=== PATIENT | male | born 1950 | race Caucasian/White ===

== ENCOUNTER 2016-08-11 12:00 | Inpatient (IN) | payer MEDICARE, OTHER ==
[~2016-08-11] VITALS: Ht 167.6 cm; Wt 76.2 kg
[~2016-08-11 12:00] MED LIST: ALLO100T PO; ALLO300T PO; ASPI81TA2 PO; BUDE10.22 IH; CALC300T5 PO; CALC667C6 PO; CARV12.5 PO; CHOL378P PO; CLOP75TA PO; DIAZEPAM10 MG PO; DIGO125T16 PO; ENAL20TA PO; ENALAPRIL; FAMO-63 PO; FLUC100T4 PO; FOLI0.8T7 PO; FURO80TA72 PO; GABA-585 PO; HUM100VI SQ; HYDR-2666 PO; INDO50CA PO; INSU100C SQ; INSU100I11 SQ; ISOS60TA PO; ISOS60TA2 PO; METO5TAB4 PO; MIRT15TA3 PO; NITR0.4T6 SL; ONDA8TAB15 PO; OXYC-244 PO; POLY255P PO; POTA10CA PO; PROVENTIL HFA6.7 GM IH; RANO500T2 PO; TAMS0.4C97 PO; TEMA30CA PO; UMEC1DIS IH
[2016-08-24] MEDS ORDERED: GABA-585 PO (13:26)
[2016-08-25] VITALS (16 sets, daily range): BP systolic 109–168; BP diastolic 54–72
[2016-08-25] MEDS ORDERED: CEFAZOLIN 2GM PREMIX 50 ML IV PRN (06:00)
[2016-08-25] MEDS ORDERED: IV NORMAL SALINE 1000ML BAG 1,000 ML IV ONE (06:45)
[2016-08-25 06:58] LABS: CREATININE 5.6 mg/dL (0.7-1.3); GFR 10.2; POTASSIUM 5.1 mmol/L (3.5-5.1)
[2016-08-25] MEDS ORDERED: ONDANSETRON PF 4 MG/2 ML VIAL. IV PRN (07:00)
[2016-08-25] MEDS ORDERED: SCOPOLAMINE 1.5MG PATCH. TD ONE (07:00)
[2016-08-25] MEDS ORDERED: IV RINGERS,LACTATED 1000ML 1,000 ML IV SCH (07:00)
[2016-08-25] MEDS ORDERED: MORPHINE SULFATE 2 MG/ML DISP.SYRIN. IV PRN (07:00)
[2016-08-25] MEDS ORDERED: LIDOCAINE 1% 1 ML SYRINGE. ID PRN (07:00)
[2016-08-25] MEDS ORDERED: DEXAMETHASONE SOD PHOS 20 MG/5 ML VIAL. IV ONE (07:00)
[2016-08-25] MEDS ORDERED: PROCHLORPERAZINE 10 MG/2 ML VIAL. IV PRN (07:00)
[2016-08-25] MEDS ORDERED: HYDROMORPHONE 2 MG/ML VIAL. IV PRN (07:00)
[2016-08-25] MEDS ORDERED: ONDANSETRON PF 4 MG/2 ML VIAL. IV ONE (07:00)
[2016-08-25] MEDS ORDERED: FENTANYL PF 100 MCG/2 ML VIAL. IV PRN (07:00)
[2016-08-25] MEDS ORDERED: SEVOFLURANE 61 TO 120 MINUTES. IH ONE (07:10)
[2016-08-25] MEDS ORDERED: ONDANSETRON PF 4 MG/2 ML VIAL. ONE (07:11)
[2016-08-25] MEDS ORDERED: FENTANYL PF 250 MCG/5 ML VIAL. ONE (07:11)
[2016-08-25] MEDS ORDERED: ETOMIDATE 20 MG/10 ML VIAL. IV ONE (07:11)
[2016-08-25] MEDS ORDERED: PROPOFOL 20 ML IV ONE (07:11)
[2016-08-25] MEDS ORDERED: DEXAMETHASONE SOD PHOS 20 MG/5 ML VIAL. ONE (07:11)
[2016-08-25] MEDS ORDERED: LIDOCAINE 2% 100 MG/5 ML DISP.SYRIN. ONE (07:11)
[2016-08-25] MEDS ORDERED: ROCURONIUM 50 MG/5 ML VIAL. ONE ×2 (07:30→11:00)
--- NOTE | 2016-08-25 08:11 | PDOC ---
SURGICAL PROGRESS NOTE Subjective 65 yo M with right retroperitoneal mass TO OR for resection R/B/A d/w pt and pt's family Office note reviewed and essentially unchanged H&P dictated: [id number] Vital Signs Vital Signs Date Time Temp Pulse Resp B/P Pulse Ox O2 Delivery O2 Flow Rate FiO2 08/25/16 06:33 97.9 70 18 160/48 98 Room Air 97.9 Labs Laboratory Tests Test 08/25/16 06:30 Sodium Level 141mmol/L (136-145) Potassium Level 5.1mmol/L (3.5-5.1) Chloride Level 101mmol/L (98-107) Carbon Dioxide Level 30mmol/L (21-32) Anion Gap 10 (6-14) Blood Urea Nitrogen 30mg/dL (8-26) Creatinine 5.6mg/dL (0.7-1.3) Estimated GFR (Cockcroft-Gault) 10.2 Glucose Level 127mg/dL (70-99) Calcium Level 9.0mg/dL (8.5-10.1) Laboratory Tests Test 08/25/16 06:30 Sodium Level 141mmol/L (136-145) Potassium Level 5.1mmol/L (3.5-5.1) Chloride Level 101mmol/L (98-107) Carbon Dioxide Level 30mmol/L (21-32) Anion Gap 10 (6-14) Blood Urea Nitrogen 30mg/dL (8-26) Creatinine 5.6mg/dL (0.7-1.3) Estimated GFR (Cockcroft-Gault) 10.2 Glucose Level 127mg/dL (70-99) Calcium Level 9.0mg/dL (8.5-10.1) BEATA HARDY MD Aug 25, 2016 08:11
[2016-08-25] MEDS ORDERED: KETAMINE HCL 500 MG/10 ML VIAL. ONE (09:54)
--- NOTE | 2016-08-25 10:01 | PREOP HP ---
DATE OF SERVICE: 08/25/2016 REFERRING PHYSICIANS: Dr. Cox in Oncology, Dr. Carlos Oswald, Dr. Sandeep Calzada and Dr. Michael Matthews. CHIEF COMPLAINT: Fatigue, nausea, vomiting. DIAGNOSIS: Right retroperitoneal mass, increasing in size. PLANNED PROCEDURE: En bloc excisional biopsy and resection of right retroperitoneal mass. HISTORY OF PRESENT ILLNESS: This is a 65-year-old male with multiple medical problems who I previously saw in the office on 07/15/2016, presents and is seen in the preoperative area regarding the right retroperitoneal mass. He has previously had transverse colon resection for colon cancer by my partner, Dr. Orestes Mcclellan and followup CT scans were concerning for increasing size and mass in the right retroperitoneum. Previous biopsy of this has been benign, but given the increased size, it was felt the patient best be served by en bloc resection. He continues to have difficulties with fatigue, nausea, vomiting. This is stable. He is accompanying by supportive and [id number]. ALLERGIES: He has allergy to STERI-STRIPS. MEDICATIONS: Aspirin, Flomax, nitroglycerin, Pepcid, Ranexa, digoxin, insulin, oxycodone, allopurinol, Plavix, calcium, MiraLax, vitamins, gabapentin. PAST MEDICAL HISTORY: History of colon cancer, status post transverse colon resection, congestive heart failure, coronary artery disease, diabetes, chronic renal failure, atrial fibrillation, end-stage renal disease. He has had difficulties with maintaining dialysis fistulas. PAST SURGICAL HISTORY: Includes multiple cardiac stents, cholecystectomy, cardiac bypass defibrillator placement, left eye surgery, laparoscopic transverse colon resection with splenic flexure takedown on 12/14/2013, pacemaker. SOCIAL HISTORY: History of tobacco, but not for many years. No significant alcohol use. FAMILY HISTORY: Positive for colon cancer, lung cancer. REVIEW OF SYSTEMS: All systems reviewed and negative except for HPI. PHYSICAL EXAMINATION: GENERAL: A well-developed and well nourished male in no obvious distress. HEENT: Normocephalic, anicteric sclerae. Oropharynx clear. NECK: Supple. CHEST: Bilateral chest excursion. ABDOMEN: Soft, nondistended, nontender to palpation, well-healed surgical scars. No hernias, no masses. EXTREMITIES: He walks with a cane. He does have a left foot cast on for a callus. I reviewed his CT scan from 07/07/2016, which demonstrated increasing size of 4.6 x 3.6 fat-containing mass in the right retroperitoneum just posterior to the right renal pelvis and proximal ureter, anterior to the right psoas muscle, 5.2 cm in its maximum cephalocaudad dimension. He has some ill-defined soft tissue components along its periphery. There is a 2.4 x 1.6 cm fat-containing mass in the mesentery and the lower pelvis, not significantly changed, stable lytic lesion and extensive soft tissue density within the subcutaneous fat of the anterior abdominal wall. ASSESSMENT AND PLAN: A 65-year-old male with right retroperitoneal mass. We will plan on en bloc excisional biopsy of this in the operating room today. I had discussed this case previously with Dr. Matthews and the patient does represent an increased risk of perioperative complications secondary to his congestive heart failure, multiple other medical problems, however it is felt the patient best be served by resection of this. Risks, benefits, and alternatives have extensively been discussed with the patient and the patient's pleasant and supportive . Risks included but not limited to bleeding, infection, damage to surrounding structures, risk of anesthesia, risk of anesthetic, risk of wound complications. The patient and the patient's appeared to understand and their insightful questions were answered and they agreed to proceed. Thank you for allowing participation in the care of this very pleasant patient. BEATA HARDY MD DR: CARRIE/macho JOB#: [id number] / [id number] DAYAMI Lopez MD, SANDEEP MATTHEWS, MICHAEL HIRSCH
[2016-08-25 10:18] LABS: HEMATOCRIT 33.2 % (39.0-53.0); HEMOGLOBIN 10.8 g/dL (13.0-17.5); WHITE BLOOD COUNT 11.1 x10^3/uL (4.0-11.0)
[2016-08-25] MEDS ORDERED: SURGICEL HEMOSTAT 4X8 EACH. ONE (11:14)
[2016-08-25] MEDS ORDERED: GLYCOPYRROLATE 1 MG/5 ML VIAL. ONE (11:25)
[2016-08-25] MEDS ORDERED: NEOSTIGMINE METHYLSULFATE 5 MG/5 ML SYRINGE. ONE (11:25)
[2016-08-25] MEDS ORDERED: 0.9 % SODIUM CHLORIDE 10 ML DISP.SYRIN. IV PRN (11:30)
[2016-08-25] MEDS: IV RINGERS,LACTATED 1000ML 1,000 ML IV SCH ×2 (11:30→21:30)
--- NOTE | 2016-08-25 11:42 | PDOC ---
BRIEF OPERATIVE NOTE Pre-Op Diagnosis right retroperitoneal mass Post-Op Diagnosis same Procedure Performed Right retroperitoneal mass en bloc excision, right nephrectomy Surgeon Eliseo Nguyen Anesthesia Type: General Blood Loss 200 IV Fluid 2000 Specimens Obtained en bloc resection, 2 x peritoneal biopsies Findings right retroperitoneal mass Complications none Additional Remarks [id number] BEATA HARDY MD Aug 25, 2016 11:42
--- NOTE | 2016-08-25 12:08 | RAD ---
Indication postop exam. Protocol study. A single KUB was obtained. Clips are noted in the right renal fossa. The abdominal gas pattern is unremarkable. Unexpected finding is not seen. Nasogastric tube is in the stomach. Vascular calcification is noted. No unexpected finding is seen IMPRESSION: Unremarkable postop KUB.
[2016-08-25] MEDS ORDERED: INSULIN REGULAR 100 UNIT/ML 10ML VIAL. IV ONE (12:45)
--- NOTE | 2016-08-25 13:11 | PDOC ---
Date and Time Post op CXR- 3 lumen IJ positioned @ SVC RA junction. ICD/Pacemaker lead in RV. No pneumothorax. Current Medications Current Medications Ondansetron HCl (Zofran) 4 mg PRN Q6HRS PRN IV Nausea; Start 08/25/16 at 07:00 ; Stop 08/26/16 at 06:59 Fentanyl Citrate (Fentanyl 2ml Vial) 25 mcg PRN Q5MIN PRN IV MILD PAIN; Start 08/25/16 at 07:00; Stop 08/26/16 at 06:59 Fentanyl Citrate (Fentanyl 2ml Vial) 50 mcg PRN Q5MIN PRN IV MODERATE PAIN; Start 08/25/16 at 07:00; Stop 08/26/16 at 06:59 Morphine Sulfate 1 mg 1 mg PRN Q10MIN PRN IV SEVERE PAIN; Start 08/25/16 at 07: 00; Stop 08/26/16 at 06:59 Lactated Ringer's (Iv Lactated Ringers) 1,000 ml @ 0 mls/hr Q0M IV ; Start at 07:00; Stop 08/25/16 at 18:59 Lidocaine HCl 2 ml 1X PRN PRN ID IV START; Start 08/25/16 at 07:00; Stop at 06:59 Hydromorphone HCl (Dilaudid) 0.5 mg PRN Q10MIN PRN IV SEVERE PAIN, Second choice; Start 08/25/16 at 07:00; Stop 08/26/16 at 06:59 Prochlorperazine Edisylate 5 mg 5 mg PACU PRN PRN IV NAUSEA; Start 08/25/16 at 07:00; Stop 08/26/16 at 06:59 Cefazolin Sodium/ Dextrose 50 ml @ 100 mls/hr 1X PREOP PRN IV PRIOR TO PROCEDURE Last administered on 08/25/16t 08:30; Start 08/25/16 at 06:00; Stop at 18:00 Sodium Chloride (Iv Sodium Chloride 0.9% 1000ml Bag) 1,000 ml @ 0 mls/hr 1X ONCE IV Last administered on 08/25/16t 06:48; Start 08/25/16 at 06:45; Stop at 06:51; Status DC Scopolamine (Transderm-Scop) 1 patch 1X ONCE TD Last administered on t 07:03; Start 08/25/16 at 07:00; Stop 08/25/16 at 07:01; Status DC Dexamethasone Sodium Phosphate (Decadron) 4 mg ONCE ONCE IV Last administered on 08/25/16t 07:05; Start 08/25/16 at 07:00; Stop 08/25/16 at 07:01; Status DC Ondansetron HCl (Zofran) 4 mg 1X ONCE IV Last administered on 08/25/16t 07:03 ; Start 08/25/16 at 07:00; Stop 08/25/16 at 07:01; Status DC Sevoflurane (Ultane) 60 ml STK-MED ONCE IH ; Start 08/25/16 at 07:10; Stop 08/25 at 07:11; Status DC Fentanyl Citrate 250 mcg 250 mcg STK-MED ONCE .ROUTE ; Start 08/25/16 at 07:11; Stop 08/25/16 at 07:12; Status DC Propofol (Diprivan) 20 ml @ As Directed STK-MED ONCE IV ; Start 08/25/16 at 07: 11; Stop 08/25/16 at 07:12; Status DC Lidocaine HCl 100 mg STK-MED ONCE .ROUTE ; Start 08/25/16 at 07:11; Stop at 07:12; Status DC Ondansetron HCl (Zofran) 4 mg STK-MED ONCE .ROUTE ; Start 08/25/16 at 07:11; Stop 08/25/16 at 07:12; Status DC Dexamethasone Sodium Phosphate (Decadron) 20 mg STK-MED ONCE .ROUTE ; Start at 07:11; Stop 08/25/16 at 07:12; Status DC Etomidate (Amidate) 20 mg STK-MED ONCE IV ; Start 08/25/16 at 07:11; Stop at 07:12; Status DC Rocuronium [place] (Zemuron) 50 mg STK-MED ONCE .ROUTE ; Start 08/25/16 at 07:30 ; Stop 08/25/16 at 07:31; Status DC Ketamine HCl 500 mg STK-MED ONCE .ROUTE ; Start 08/25/16 at 09:54; Stop at 09:55; Status DC Rocuronium [place] (Zemuron) 50 mg STK-MED ONCE .ROUTE ; Start 08/25/16 at 11:00 ; Stop 08/25/16 at 11:01; Status DC Cellulose 1 each STK-MED ONCE .ROUTE Last administered on 08/25/16t 11:15; Start 08/25/16 at 11:14; Stop 08/25/16 at 11:15; Status DC Glycopyrrolate (Robinul) 1 mg STK-MED ONCE .ROUTE ; Start 08/25/16 at 11:25; Stop 08/25/16 at 11:26; Status DC Neostigmine Methylsulfate 5 mg STK-MED ONCE .ROUTE ; Start 08/25/16 at 11:25; Stop 08/25/16 at 11:26; Status DC Enoxaparin Sodium (Lovenox 40mg Syringe) 40 mg Q24H SQ ; Start 08/25/16 at 11:30 ; Status UNV Sodium Chloride 3 ml 3 ml QSHIFT PRN IV AFTER MEDS AND BLOOD DRAWS; Start 08/25 at 11:30 Lactated Ringer's (Iv Lactated Ringers) 1,000 ml @ 100 mls/hr Q10H IV ; Start 08/25/16 at 11:30 Acetaminophen/ Hydrocodone Bitart (Lortab 5/325) 1 tab PRN Q4HRS PRN PO MILD PAIN; Start 08/25/16 at 11:30 Hydromorphone HCl (Dilaudid) 0.2 mg PRN Q1HR PRN IV PAIN; Start 08/25/16 at 11: 30 Docusate Sodium (Colace) 100 mg BID PO ; Start 08/25/16 at 21:00 Ondansetron HCl (Zofran) 4 mg PRN Q6HRS PRN IV NAUESA, 1ST CHOICE; Start at 11:30 Insulin Human Regular (Novolin R Vial) 3 unit 1X ONCE IV Last administered on 08/25/16t 12:49; Start 08/25/16 at 12:45; Stop 08/25/16 at 12:46; Status DC Active Scripts Active Reported Gabapentin 100 Mg Capsule 100 Mg PO BID Ranexa (Ranolazine) 500 Mg Tab.er.12h 1 Tab PO DAILY Phoslo (Calcium Acetate) 667 Mg Capsule 667 Mg PO TIDWMEALS Polyethylene Glycol 3350 255 Gm Powder 17 Gm PO DAILY PRN Anoro Ellipta 62.5-25 Mcg Inh (Umeclidinium Brm/Vilanterol Tr) 1 Each Disk.w.dev 1 Each IH DAILY Clopidogrel (Clopidogrel Bisulfate) 75 Mg Tablet 1 Tab PO DAILY Percocet 7.5-325 Mg Tablet (Oxycodone/Acetaminophen) 1 Each Tablet 1 Tab PO TID PRN Dialyvite 800 Tablet (Folic Acid/Vitamin B Comp W-C) 0.8 Mg Tablet 0.8 Mg PO DAILY NITROGLYCERIN SubLingual (Nitroglycerin) 0.4 Mg Tab.subl 0.4 Mg SL PRN Humulin 70-30 Vial (Hum Insulin Nph/Reg Insulin Hm) 100 Unit/1 Ml Vial 30 Unit SQ BIDWMEALS Allopurinol 300 Mg Tablet 300 Mg PO DAILY Pepcid (Famotidine) 20 Mg Tablet 20 Mg PO QHS Lanoxin (Digoxin) 125 Mcg Tablet 125 Mcg PO DAILY Flomax (Tamsulosin Hcl) 0.4 Mg Cap.er.24h 0.4 Mg PO HS Aspirin 81 Mg Tab.chew 81 Mg PO DAILY Pertinent Labs/Test Laboratory Tests Test 08/25/16 06:30 08/25/16 09:30 08/25/16 12:22 Sodium Level 141mmol/L (136-145) Potassium Level 5.1mmol/L (3.5-5.1) Chloride Level 101mmol/L (98-107) Carbon Dioxide Level 30mmol/L (21-32) Anion Gap 10 (6-14) Blood Urea Nitrogen 30mg/dL (8-26) Creatinine 5.6mg/dL (0.7-1.3) Estimated GFR (Cockcroft-Gault) 10.2 Glucose Level 127mg/dL (70-99) Calcium Level 9.0mg/dL (8.5-10.1) White Blood Count 11.1x10^3/uL (4.0-11.0) Hemoglobin 10.8g/dL (13.0-17.5) Hematocrit 33.2% (39.0-53.0) Platelet Count 117x10^3/uL (140-400) Glucose (Fingerstick) 190mg/dL (70-99) Laboratory Tests Test 08/25/16 06:30 08/25/16 09:30 08/25/16 12:22 Sodium Level 141mmol/L (136-145) Potassium Level 5.1mmol/L (3.5-5.1) Chloride Level 101mmol/L (98-107) Carbon Dioxide Level 30mmol/L (21-32) Anion Gap 10 (6-14) Blood Urea Nitrogen 30mg/dL (8-26) Creatinine 5.6mg/dL (0.7-1.3) Estimated GFR (Cockcroft-Gault) 10.2 Glucose Level 127mg/dL (70-99) Calcium Level 9.0mg/dL (8.5-10.1) White Blood Count 11.1x10^3/uL (4.0-11.0) Hemoglobin 10.8g/dL (13.0-17.5) Hematocrit 33.2% (39.0-53.0) Platelet Count 117x10^3/uL (140-400) Glucose (Fingerstick) 190mg/dL (70-99) LAST VITALS Vital Signs Date Time Temp Pulse Resp B/P Pulse Ox O2 Delivery O2 Flow Rate FiO2 08/25/16 12:08 98.7 78 15 144/57 96 Simple Mask 10 98.7 ABBEY CHAO MD Aug 25, 2016 13:11
--- NOTE | 2016-08-25 13:50 | RAD ---
Indication Central line placement. Upright film of the chest was obtained. Note is made of a previous examination 03/24/2015. Postoperative changes are noted. There is a defibrillating and unipolar cardiac pacing device. There is perhaps for a mild pulmonary vascular congestion. There is slight volume loss at the right lung base likely reflecting atelectasis. There is a right IJ catheter extending to the SVC right atrial junction. No complication is seen and specifically no pneumothorax is apparent. There is pneumoperitoneum consistent with the known abdominal operative intervention earlier in the day. IMPRESSION: Right IJ catheter. The tip extends to the SVC right atrial junction. No pneumothorax seen. Suspect mild pulmonary vascular congestion. Slight volume loss at the right lung base compatible with atelectasis or pneumonia
[2016-08-25] MEDS: FENTANYL PF 100 MCG/2 ML VIAL. IV PRN ×2 (14:06→17:41)
--- NOTE | 2016-08-25 15:00 | OP ---
DATE OF SURGERY: 08/25/2016 REFERRING PHYSICIANS: Leisa Briones M.D.; Carlos Oswald M.D.; Lul Cox M.D.; Sandeep Yang M.D.; Michael Matthews M.D.; Yovana Schroeder M.D. Thank you for the consult. PREOPERATIVE DIAGNOSIS: Right retroperitoneal mass. POSTOPERATIVE DIAGNOSIS: Right retroperitoneal mass. PROCEDURES PERFORMED: En bloc resection of right retroperitoneal mass including right kidney, 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 SURGEON: Ron Gomes M.D. [facility]: Carlos Nguyen M.D. ESTIMATED BLOOD LOSS: 200 mL. FLUIDS: 2000 mL. COMPLICATIONS: None. FINDINGS: Large mass medial and posterior to the right ureter at the renal pelvis appears to be somewhat adherent to the superior pole of the right kidney. INDICATIONS: A 65-year-old male who was noted on followup CTs from his history of colon cancer, was noted to have a right retroperitoneal mass which was increasing in size. Subsequently, it was felt patient best be served by excision of this. The patient and patient's were informed of the risks, benefits, alternatives of procedure, risks including but not limited to bleeding, infection, damage to surrounding structures, risk of anesthesia, risk of nephrectomy, risk of wound complications. The patient is at high risk of perioperative complications secondary to multiple comorbidities. The patient and patient's appeared to understand and their insightful questions were answered and they agreed to proceed. DESCRIPTION OF PROCEDURE: After obtaining informed consent, the patient was taken to operating room, induced under general endotracheal anesthetic. The patient underwent preoperative ureteral stenting by Dr. Perkins. The stents were removed at the end of the procedure. The right costal margin incision was made using electrocautery. Subcutaneous tissue was divided using electrocautery, and abdominal musculature was divided using electrocautery. The abdominal cavity was entered and explored. The liver was normal in appearance. Gallbladder was surgically absent. Stomach is normal in appearance. The small bowel was run from ligament of Treitz to terminal ileum and was found to be a fatty tumor off the proximal small bowel. This was excised without injuring the underlying small bowel, sent to pathology for evaluation. There was another hard mass off the sigmoid colon, which was also excised using electrocautery and sent to pathology for evaluation. The right colon was mobilized in the midline, Liss maneuver was performed as well as dividing the adhesions to the liver from previous gallbladder surgery. It was noted to be an indistinct mass in the right retroperitoneum, difficult to palpate the right ureteral stent secondary to deformity secondary to the mass. The mass appeared to be medial and separate to the kidney, but posterior to the ureter, which appeared to follow somewhat of an irregular course secondary to the mass. The mass was sharply and bluntly dissected out of the right retroperitoneum. It appeared to be fairly intimately involved with the right kidney, especially in the superior aspect and as such, it was felt patient would best be served by en bloc resection with the right kidney as well, especially considering the patient has renal failure already. The right renal vein and arteries were identified. They were noted to be multiple and ligated using 0 Vicryl stitches metal clips and LigaSure device. The ureter was resected and clips were placed on the remaining ureter in the right mid pelvis, large amount of retroperitoneal fat was cleared with the specimen in attempts to provide good en bloc resection. Specimen was then passed off field and sent to pathology for evaluation. A stitch was placed at the ureter and oriented for pathology. Hemostasis was obtained using electrocautery and Surgicel was placed in the renal fossa. There was no evidence of obvious bleeding or other pathology at the time of closure. The colon and duodenum appeared to be intact. The liver was normal in appearance. No evidence of other masses or other concerns. Right colon was placed over the area of concern, the omentum was placed over the viscera. The peritoneum was reapproximated using 0 Vicryl stitch. The abdominal wall musculature was reapproximated using continuous 0 PDS. Subcutaneous tissues were approximated with 3-0 Vicryl. Skin incisions were approximated with 4-0 Monocryl in subcuticular fashion. Sterile dressing was placed over all wounds. The patient tolerated procedure well and was discharged to recovery room in stable condition. He will be transferred to the ICU just given all of his multiple medical issues; however, he was very stable throughout the surgery. All counts were correct. There were no immediate complications. Thank you for allowing me in participation in the care of this very pleasant patient. RON GOMES MD DR: CARRIE/macho JOB#: [id number] / [id number] LUL Lopez MD, YOVANA BRIONES, LEISA YANG, SANDEEP PERKINS, JANI ALMEIDA, MICHAEL ORTEZ MD, MD
--- NOTE | 2016-08-25 17:44 | PDOC2 ---
DATE OF CONSULT Date of Consult 08/25/2016 REASON FOR CONSULT Reason for Consult ESRD REFERRING PHYSICIAN Referring Provider Eliseo CHIEF COMPLAINT Chief Complaint Problems Medical Problems: (1) Retroperitoneal mass Status: Acute SOURCE Source Pt and EMR HPI HPI as dictated CURRENT MEDICATIONS Current Meds Current Medications Medications (Trade) Dose Ordered Sig/Andrew Route PRN Reason Start Time Stop Time Status Last Admin Dose Admin Fentanyl Citrate 25 mcg 25 mcg PRN Q5MIN PRN IV MILD PAIN 08/25/16 07:00 08/26/16 06:59 08/25/16 14:06 Cefazolin Sodium/ Dextrose 50 ml @ 100 mls/hr 1X PREOP PRN IV PRIOR TO PROCEDURE 08/25/16 06:00 08/25/16 18:00 08/25/16 08:30 Sodium Chloride (Iv Sodium Chloride 0.9% 1000ml Bag) 1,000 ml @ 0 mls/hr 1X ONCE IV 08/25/16 06:45 08/25/16 06:51 DC 08/25/16 06:48 Scopolamine (Transderm-Scop) 1 patch 1X ONCE TD 08/25/16 07:00 08/25/16 07:01 DC 08/25/16 07:03 Dexamethasone Sodium Phosphate (Decadron) 4 mg ONCE ONCE IV 08/25/16 07:00 08/25/16 07:01 DC 08/25/16 07:05 Ondansetron HCl (Zofran) 4 mg 1X ONCE IV 08/25/16 07:00 08/25/16 07:01 DC 08/25/16 07:03 Cellulose 1 each STK-MED ONCE .ROUTE 08/25/16 11:14 08/25/16 11:15 DC 08/25/16 11:15 Insulin Human Regular (Novolin R Vial) 3 unit 1X ONCE IV 08/25/16 12:45 08/25/16 12:46 DC 08/25/16 12:49 Home Meds Reviewed as documented ALLERGIES Allergies: Coded Allergies: adhesive (Verified Allergy, Severe, STERI STRIPS- PEELING SKIN, 08/25/16) STERI STRIPS ROS ROS GEN: no Fevers no Chills EYES: no new Visual Complaints ENT: no EN Drainage no Hearing deficiets CVS: no Orthopnea no CP RESP: no SOB no MEJIA GI: no Nausea no Vomiting : no Dysuria no Urgency Oligo-anuric HEME: no easy bruising no Palp Ly Nodes NEURO no Focal Weakness no Sz PSYCH: no Suicidal Ideation + Depression SKIN: no Rashes ENDO: no Polyuria or Polydipsia no Hot/Cold Intolerance MU SK: Ch Arthraigia no Myalgia VITAL SIGNS Vital Signs VS - Last 72 Hours, by Label Date Time Temp Pulse Resp B/P Pulse Ox O2 Delivery O2 Flow Rate FiO2 08/25/16 17:00 76 20 168/72 100 Nasal Cannula 4.0 08/25/16 16:30 72 20 158/64 99 Nasal Cannula 4.0 08/25/16 16:21 Mask 4.0 08/25/16 15:45 72 18 146/62 99 Nasal Cannula 4.0 08/25/16 15:30 70 20 152/60 97 Nasal Cannula 4.0 08/25/16 15:15 70 20 142/62 97 Nasal Cannula 4.0 08/25/16 15:00 74 17 144/60 97 Nasal Cannula 4.0 08/25/16 14:45 78 22 152/70 96 Nasal Cannula 4.0 08/25/16 14:36 Nasal Cannula 4.0 08/25/16 14:30 70 18 136/54 97 Nasal Cannula 4.0 08/25/16 14:15 68 22 134/54 97 Nasal Cannula 4.0 08/25/16 14:06 16 98 Nasal Cannula 4.0 08/25/16 14:00 70 20 132/56 97 Nasal Cannula 4.0 08/25/16 13:45 78 18 158/62 96 Nasal Cannula 4.0 08/25/16 13:08 78 18 143/56 95 Nasal Cannula 4 08/25/16 12:53 80 19 157/68 94 Nasal Cannula 4 08/25/16 12:38 78 16 139/58 92 Nasal Cannula 4 08/25/16 12:23 82 15 149/57 92 Simple Mask 10 08/25/16 12:20 Mask 10 08/25/16 12:08 98.7 78 15 144/57 96 Simple Mask 10 98.7 08/25/16 06:33 97.9 70 18 160/48 98 Room Air 97.9 08/25/16 06:27 97.9 70 18 98 97.9 PHYSICAL EXAM Physical Exam General Appearance: Awake Alert Oriented x 3 In no Distress Eyes: VIsion Unchanged Conjunctiva Normal EN: No EN Drainage Mucous Memb. moist Neck: no JVD no JVP Supple no Thyromegaly CVS: S1 S2 sys Murmur No Gallop No Rub no Edema Resp: no Rales no Rhonchi no Acc. Muscle use GI: BS +ve NO Bruit + Tender Non Distended : no CVA tenderness; no Suprapubic Tenderness SKIN: no Rashes Breast Exam deferred Mu.Sk: Adequate ROM no Muscle Atrophy Heme: Unable to palpate Obvious LAD no Splenomegaly NEURO: Good Strength and Tone Cranial Nerves II - XII grossly intact Psych: ? Depressed no Active hallucination ASSESSMENT/PLAN Assessment/Plan ESRD: Current FLuid and E-lyte status does not necessitate emergent need for Dialysis. Will re-evaluate for Dialysis in am and continue on MWF schedule. Anemia: suspectedly Post -op; start Epogen if hgb < 10 in am. Transfuse with next HD as needed. HTN: Currently NPO so BP meds reviewed and will be gradually restarted when able to. prn Hydralazine. See orders for changes. Nutrition - TPN vs TF in near future - Discussed Plan of Care with pt LABS Labs: Laboratory Tests Test 08/25/16 06:30 08/25/16 09:30 08/25/16 12:22 08/25/16 13:16 Sodium Level 141mmol/L (136-145) Chloride Level 101mmol/L (98-107) Carbon Dioxide Level 30mmol/L (21-32) Anion Gap 10 (6-14) Blood Urea Nitrogen 30mg/dL (8-26) Estimated GFR (Cockcroft-Gault) 10.2 Glucose Level 127mg/dL (70-99) Calcium Level 9.0mg/dL (8.5-10.1) White Blood Count 11.1x10^3/uL (4.0-11.0) Hemoglobin 10.8g/dL (13.0-17.5) Hematocrit 33.2% (39.0-53.0) Platelet Count 117x10^3/uL (140-400) Glucose (Fingerstick) 190mg/dL (70-99) 210mg/dL (70-99) RIVKA PIEDRA MD Aug 25, 2016 17:44
[2016-08-25] MEDS ORDERED: hydrALAZINE 20 MG/ML VIAL. IVP PRN (17:45)
[2016-08-25] MEDS ORDERED: MAGNESIUM SULFATE 2GM 50 ML IV PRN (17:45)
--- NOTE | 2016-08-25 19:00 | PDOC2 ---
CONSULT Date of Consult Date of Consult DATE: 08/25/16 TIME: 18:52 Reason for Consult Reason for Consult: Cardiomyopathy Referring Physician Referring Physician: Dr. Gomes Identification/Chief Complaint Chief Complaint Retroperitoneal mass History of Present Illness Reason for Visit: This patient is a 65-year-old gentleman that I have known for several years. He has a known history of lungs CTA as well as a previous colon CA that had been resected. The patient has coronary artery disease and a cardiomyopathy with previous episodes of CHF. He has had a pacer defibrillator implanted in the past. He is an end-stage renal disease patient on hemodialysis. The patient was found to have a retroperitoneal mass and he was seen and evaluated by the surgeons who recommended an excision in block of this mass. I saw the patient and I agreed with this approach and I have discussed this with the patient as well as his and we discussed the risks involved with the surgery from a cardiac standpoint and I explained to them that I would agree that he he is high risk but that I would recommend to proceed with the surgery. They agreed with this approach. The patient came in and had the surgery done today. At this time he is extubated but nothing by mouth with an NG tube in place. No cardiac complaints. No cardiac issues at this time he is in atrial fibrillation which is a chronic problem for him. Past Medical History Cardiovascular: AFIB, CAD, CHF, HTN, Valve insufficiency, Pulmonary hypertension Heme/Onc: Cancer, Iron deficiency Anemia Musculoskeletal: Muscle atrophy, Weakness Renal/: Chronic renal failure Social History Lives: with Family Current Problem List Problem List Problems Medical Problems: (1) Retroperitoneal mass Status: Acute Current Medications Current Medications Current Medications Ondansetron HCl (Zofran) 4 mg PRN Q6HRS PRN IV Nausea; Start 08/25/16 at 07:00 ; Stop 08/26/16 at 06:59 Fentanyl Citrate (Fentanyl 2ml Vial) 25 mcg PRN Q5MIN PRN IV MILD PAIN Last administered on 08/25/16t 17:41; Start 08/25/16 at 07:00; Stop 08/26/16 at 06:59 Fentanyl Citrate (Fentanyl 2ml Vial) 50 mcg PRN Q5MIN PRN IV MODERATE PAIN; Start 08/25/16 at 07:00; Stop 08/26/16 at 06:59 Morphine Sulfate 1 mg 1 mg PRN Q10MIN PRN IV SEVERE PAIN; Start 08/25/16 at 07: 00; Stop 08/26/16 at 06:59 Lactated Ringer's (Iv Lactated Ringers) 1,000 ml @ 0 mls/hr Q0M IV ; Start at 07:00; Stop 08/25/16 at 18:59 Lidocaine HCl 2 ml 1X PRN PRN ID IV START; Start 08/25/16 at 07:00; Stop at 06:59 Hydromorphone HCl (Dilaudid) 0.5 mg PRN Q10MIN PRN IV SEVERE PAIN, Second choice; Start 08/25/16 at 07:00; Stop 08/26/16 at 06:59 Prochlorperazine Edisylate 5 mg 5 mg PACU PRN PRN IV NAUSEA; Start 08/25/16 at 07:00; Stop 08/26/16 at 06:59 Cefazolin Sodium/ Dextrose 50 ml @ 100 mls/hr 1X PREOP PRN IV PRIOR TO PROCEDURE Last administered on 08/25/16 08:30; Start 08/25/16 at 06:00; Stop at 18:00; Status DC Sodium Chloride (Iv Sodium Chloride 0.9% 1000ml Bag) 1,000 ml @ 0 mls/hr 1X ONCE IV Last administered on 08/25/16 06:48; Start 08/25/16 at 06:45; Stop at 06:51; Status DC Scopolamine (Transderm-Scop) 1 patch 1X ONCE TD Last administered on 07:03; Start 08/25/16 at 07:00; Stop 08/25/16 at 07:01; Status DC Dexamethasone Sodium Phosphate (Decadron) 4 mg ONCE ONCE IV Last administered on 08/25/16 07:05; Start 08/25/16 at 07:00; Stop 08/25/16 at 07:01; Status DC Ondansetron HCl (Zofran) 4 mg 1X ONCE IV Last administered on 08/25/16 07:03 ; Start 08/25/16 at 07:00; Stop 08/25/16 at 07:01; Status DC Sevoflurane (Ultane) 60 ml STK-MED ONCE IH ; Start 08/25/16 at 07:10; Stop 08/25 at 07:11; Status DC Fentanyl Citrate 250 mcg 250 mcg STK-MED ONCE .ROUTE ; Start 08/25/16 at 07:11; Stop 08/25/16 at 07:12; Status DC Propofol (Diprivan) 20 ml @ As Directed STK-MED ONCE IV ; Start 08/25/16 at 07: 11; Stop 08/25/16 at 07:12; Status DC Lidocaine HCl 100 mg STK-MED ONCE .ROUTE ; Start 08/25/16 at 07:11; Stop at 07:12; Status DC Ondansetron HCl (Zofran) 4 mg STK-MED ONCE .ROUTE ; Start 08/25/16 at 07:11; Stop 08/25/16 at 07:12; Status DC Dexamethasone Sodium Phosphate (Decadron) 20 mg STK-MED ONCE .ROUTE ; Start at 07:11; Stop 08/25/16 at 07:12; Status DC Etomidate (Amidate) 20 mg STK-MED ONCE IV ; Start 08/25/16 at 07:11; Stop at 07:12; Status DC Rocuronium [place] (Zemuron) 50 mg STK-MED ONCE .ROUTE ; Start 08/25/16 at 07:30 ; Stop 08/25/16 at 07:31; Status DC Ketamine HCl 500 mg STK-MED ONCE .ROUTE ; Start 08/25/16 at 09:54; Stop at 09:55; Status DC Rocuronium [place] (Zemuron) 50 mg STK-MED ONCE .ROUTE ; Start 08/25/16 at 11:00 ; Stop 08/25/16 at 11:01; Status DC Cellulose 1 each STK-MED ONCE .ROUTE Last administered on 08/25/16t 11:15; Start 08/25/16 at 11:14; Stop 08/25/16 at 11:15; Status DC Glycopyrrolate (Robinul) 1 mg STK-MED ONCE .ROUTE ; Start 08/25/16 at 11:25; Stop 08/25/16 at 11:26; Status DC Neostigmine Methylsulfate 5 mg STK-MED ONCE .ROUTE ; Start 08/25/16 at 11:25; Stop 08/25/16 at 11:26; Status DC Enoxaparin Sodium (Lovenox 30mg Syringe) 30 mg QHS SQ ; Start 08/25/16 at 21:00 Sodium Chloride 3 ml 3 ml QSHIFT PRN IV AFTER MEDS AND BLOOD DRAWS; Start 08/25 at 11:30 Lactated Ringer's (Iv Lactated Ringers) 1,000 ml @ 100 mls/hr Q10H IV ; Start 08/25/16 at 11:30 Acetaminophen/ Hydrocodone Bitart (Lortab 5/325) 1 tab PRN Q4HRS PRN PO MILD PAIN; Start 08/25/16 at 11:30 Hydromorphone HCl (Dilaudid) 0.2 mg PRN Q1HR PRN IV PAIN; Start 08/25/16 at 11: 30 Docusate Sodium (Colace) 100 mg BID PO ; Start 08/25/16 at 21:00 Ondansetron HCl (Zofran) 4 mg PRN Q6HRS PRN IV NAUESA, 1ST CHOICE; Start at 11:30 Insulin Human Regular 3 unit 3 unit 1X ONCE IV Last administered on 08/25/16t 12:49; Start 08/25/16 at 12:45; Stop 08/25/16 at 12:46; Status DC Magnesium Sulfate/ Dextrose (Magnesium Sulfate PREMIX 2GM) 50 ml @ 25 mls/hr PRN DAILY PRN IV for Mag < 1.7 on am labs; Start 08/25/16 at 17:45 Hydralazine HCl (Apresoline) 20 mg PRN Q4HRS PRN IVP ELEVATED BP, SEE COMMENTS ; Start 08/25/16 at 17:45 Active Scripts Active Reported Gabapentin 100 Mg Capsule 100 Mg PO BID Ranexa (Ranolazine) 500 Mg Tab.er.12h 1 Tab PO DAILY Phoslo (Calcium Acetate) 667 Mg Capsule 667 Mg PO TIDWMEALS Polyethylene Glycol 3350 255 Gm Powder 17 Gm PO DAILY PRN Anoro Ellipta 62.5-25 Mcg Inh (Umeclidinium Brm/Vilanterol Tr) 1 Each Disk.w.dev 1 Each IH DAILY Clopidogrel (Clopidogrel Bisulfate) 75 Mg Tablet 1 Tab PO DAILY Percocet 7.5-325 Mg Tablet (Oxycodone/Acetaminophen) 1 Each Tablet 1 Tab PO TID PRN Dialyvite 800 Tablet (Folic Acid/Vitamin B Comp W-C) 0.8 Mg Tablet 0.8 Mg PO DAILY NITROGLYCERIN SubLingual (Nitroglycerin) 0.4 Mg Tab.subl 0.4 Mg SL PRN Humulin 70-30 Vial (Hum Insulin Nph/Reg Insulin Hm) 100 Unit/1 Ml Vial 30 Unit SQ BIDWMEALS Allopurinol 300 Mg Tablet 300 Mg PO DAILY Pepcid (Famotidine) 20 Mg Tablet 20 Mg PO QHS Lanoxin (Digoxin) 125 Mcg Tablet 125 Mcg PO DAILY Flomax (Tamsulosin Hcl) 0.4 Mg Cap.er.24h 0.4 Mg PO HS Aspirin 81 Mg Tab.chew 81 Mg PO DAILY Allergies Allergies: Coded Allergies: adhesive (Verified Allergy, Severe, STERI STRIPS- PEELING SKIN, 08/25/16) STERI STRIPS Physical Exam Physical Exam H EENT pupils are reactive. Oral mucosa dry and she in place. Neck is supple no JVD. Lungs are clear. Heart irregularly irregular. S1 and S2. 2/6 systolic murmur. Abdomen soft, no bowel sounds. Extremities no edema Vitals VITALS Vital Signs Date Time Temp Pulse Resp B/P Pulse Ox O2 Delivery O2 Flow Rate FiO2 08/25/16 18:11 100 4.0 08/25/16 17:43 98.3 81 16 156/63 Nasal Cannula 98.3 Labs Labs Laboratory Tests Test 08/25/16 06:30 08/25/16 09:30 08/25/16 12:22 08/25/16 13:16 Sodium Level 141mmol/L (136-145) Potassium Level 5.1mmol/L (3.5-5.1) Chloride Level 101mmol/L (98-107) Carbon Dioxide Level 30mmol/L (21-32) Anion Gap 10 (6-14) Blood Urea Nitrogen 30mg/dL (8-26) Creatinine 5.6mg/dL (0.7-1.3) Estimated GFR (Cockcroft-Gault) 10.2 Glucose Level 127mg/dL (70-99) Calcium Level 9.0mg/dL (8.5-10.1) White Blood Count 11.1x10^3/uL (4.0-11.0) Hemoglobin 10.8g/dL (13.0-17.5) Hematocrit 33.2% (39.0-53.0) Platelet Count 117x10^3/uL (140-400) Glucose (Fingerstick) 190mg/dL (70-99) 210mg/dL (70-99) Laboratory Tests Test 08/25/16 06:30 08/25/16 09:30 08/25/16 12:22 08/25/16 13:16 Sodium Level 141mmol/L (136-145) Potassium Level 5.1mmol/L (3.5-5.1) Chloride Level 101mmol/L (98-107) Carbon Dioxide Level 30mmol/L (21-32) Anion Gap 10 (6-14) Blood Urea Nitrogen 30mg/dL (8-26) Creatinine 5.6mg/dL (0.7-1.3) Estimated GFR (Cockcroft-Gault) 10.2 Glucose Level 127mg/dL (70-99) Calcium Level 9.0mg/dL (8.5-10.1) White Blood Count 11.1x10^3/uL (4.0-11.0) Hemoglobin 10.8g/dL (13.0-17.5) Hematocrit 33.2% (39.0-53.0) Platelet Count 117x10^3/uL (140-400) Glucose (Fingerstick) 190mg/dL (70-99) 210mg/dL (70-99) Assessment/Plan Assessment/Plan This patient with a cardiomyopathy and a known history of chronic atrial fibrillation, coronary artery disease and end-stage renal disease tolerated this surgery with an excision and block and a nephrectomy was done earlier today. Presently he is hemodynamically stable and compensated cardiac-pena. I agree with the present plan and he probably will need to be transfused which can be done during dialysis. For now if dialysis is needed tomorrow I would not recommend to take much fluid off I will be happy to follow the patient with you during the hospital stay. Thank you very much for asking me to participate in the care of this patient LEXI ALTAMIRANO MD Aug 25, 2016 19:00
[2016-08-25] MEDS: HYDROMORPHONE 2 MG/ML VIAL. IV PRN ×2 (19:24→20:33)
[2016-08-25] MEDS: DOCUSATE SODIUM 100 MG CAPSULE PO SCH (19:50)
[2016-08-25] MEDS ORDERED: ENOXAPARIN 30 MG/0.3 ML DISP.SYRIN. SQ SCH (21:00)
[2016-08-26] VITALS (19 sets, daily range): BP systolic 102–134; BP diastolic 52–68
[2016-08-26] MEDS: HYDROMORPHONE 2 MG/ML VIAL. IV PRN ×2 (00:14→17:20)
[2016-08-26 06:36] LABS: BASO % 0 % (0-3); EOS % 0 % (0-3); HEMATOCRIT 37.3 % (39.0-53.0); HEMOGLOBIN 11.7 g/dL (13.0-17.5); LYMPH # 1.4 x10^3/uL (1.0-4.8); LYMPH % 8 % (24-48); MEAN CORPUSCULAR HEMOGLOBIN 32 pg (25-35); MEAN CORPUSCULAR HGB CONC 31 g/dL (31-37); MEAN CORPUSCULAR VOLUME 103 fL (79-100); MONO % 9 % (0-9); NEUT % 83 % (31-73); PLATELET COUNT 199 x10^3/uL (140-400); RED BLOOD COUNT 3.64 x10^6/uL (4.30-5.70); WHITE BLOOD COUNT 16.8 x10^3/uL (4.0-11.0)
[2016-08-26 06:51] LABS: ALBUMIN 2.9 g/dL (3.4-5.0); CALCIUM 8.2 mg/dL (8.5-10.1); CREATININE 7.2 mg/dL (0.7-1.3); GFR 7.6
[2016-08-26 06:58] LABS: POTASSIUM 7.6 mmol/L (3.5-5.1)
[2016-08-26] MEDS: IV RINGERS,LACTATED 1000ML 1,000 ML IV SCH (07:30)
[2016-08-26] MEDS ORDERED: IV NORMAL SALINE 1000ML BAG 1,000 ML IV PRN ×2 (09:00)
[2016-08-26] MEDS: DOCUSATE SODIUM 100 MG CAPSULE PO SCH ×2 (09:00→21:36)
--- NOTE | 2016-08-26 09:35 | PDOC ---
Dialysis Progress Note Dialysis Note Dialysis Note Seen on Hemodialysis, tolerating treatment Okay for now Vitals on Hemodialysis: 118/63 (edna) 78 afeb General Appearance: Awake: Alert Oriented x 2-3 Neck: No JVD or JVP Chest: CTA Enmanuel Heart: S1 S2 Abdomen - Soft NTND Extremities - No Edema ESRD: Dialysis as below F 180 NR 3.5 Hrs 1 K 2.5 Ca 140 Na 35 HC03 Qb 350 + Qd 500+ Heparin 0 Units Uf 1-2 Kgs or to dry weight as tolerated May give 25-50 gms of 25% Albumin if needed to maintain Hemodynamic stability Treatment plan reviewed and discussed with voice writing reporter Will reval on HD once Stat repeat K is avail Vitals Vital Signs Vital Signs Date Time Temp Pulse Resp B/P Pulse Ox O2 Delivery O2 Flow Rate FiO2 08/26/16 06:00 73 20 127/68 98 Nasal Cannula 4.0 08/26/16 04:00 99.8 99.8 Labs Last Labs Laboratory Tests Test 08/25/16 06:30 08/25/16 09:30 08/25/16 12:22 08/25/16 13:16 Sodium Level 141mmol/L (136-145) Potassium Level 5.1mmol/L (3.5-5.1) Chloride Level 101mmol/L (98-107) Carbon Dioxide Level 30mmol/L (21-32) Anion Gap 10 (6-14) Blood Urea Nitrogen 30mg/dL (8-26) Creatinine 5.6mg/dL (0.7-1.3) Estimated GFR (Cockcroft-Gault) 10.2 Glucose Level 127mg/dL (70-99) Calcium Level 9.0mg/dL (8.5-10.1) White Blood Count 11.1x10^3/uL (4.0-11.0) Hemoglobin 10.8g/dL (13.0-17.5) Hematocrit 33.2% (39.0-53.0) Platelet Count 117x10^3/uL (140-400) Glucose (Fingerstick) 190mg/dL (70-99) 210mg/dL (70-99) Test 08/25/16 15:00 08/25/16 23:43 08/26/16 05:45 08/26/16 05:46 Nasal Screen MRSA (PCR) Negative (Negative) Glucose (Fingerstick) 240mg/dL (70-99) 183mg/dL (70-99) White Blood Count 16.8x10^3/uL (4.0-11.0) Red Blood Count 3.64x10^6/uL (4.30-5.70) Hemoglobin 11.7g/dL (13.0-17.5) Hematocrit 37.3% (39.0-53.0) Mean Corpuscular Volume 103fL (79-100) Mean Corpuscular Hemoglobin 32pg (25-35) Mean Corpuscular Hemoglobin Concent 31g/dL (31-37) Red Cell Distribution Width 15.0% (11.5-14.5) Platelet Count 199x10^3/uL (140-400) Neutrophils (%) (Auto) 83% (31-73) Lymphocytes (%) (Auto) 8% (24-48) Monocytes (%) (Auto) 9% (0-9) Eosinophils (%) (Auto) 0% (0-3) Basophils (%) (Auto) 0% (0-3) Neutrophils # (Auto) 13.9x10^3uL (1.8-7.7) Lymphocytes # (Auto) 1.4x10^3/uL (1.0-4.8) Monocytes # (Auto) 1.5x10^3/uL (0.0-1.1) Eosinophils # (Auto) 0.0x10^3/uL (0.0-0.7) Basophils # (Auto) 0.0x10^3/uL (0.0-0.2) Sodium Level 140mmol/L (136-145) Potassium Level 7.6mmol/L (3.5-5.1) Chloride Level 103mmol/L (98-107) Carbon Dioxide Level 24mmol/L (21-32) Anion Gap 13 (6-14) Blood Urea Nitrogen 46mg/dL (8-26) Creatinine 7.2mg/dL (0.7-1.3) Estimated GFR (Cockcroft-Gault) 7.6 Glucose Level 227mg/dL (70-99) Calcium Level 8.2mg/dL (8.5-10.1) Phosphorus Level 6.0mg/dL (2.6-4.7) Magnesium Level 1.9mg/dL (1.8-2.4) Albumin 2.9g/dL (3.4-5.0) Laboratory Tests Test 08/25/16 12:22 08/25/16 13:16 08/25/16 15:00 08/25/16 23:43 Glucose (Fingerstick) 190mg/dL (70-99) 210mg/dL (70-99) 240mg/dL (70-99) Nasal Screen MRSA (PCR) Negative (Negative) Test 08/26/16 05:45 08/26/16 05:46 White Blood Count 16.8x10^3/uL (4.0-11.0) Red Blood Count 3.64x10^6/uL (4.30-5.70) Hemoglobin 11.7g/dL (13.0-17.5) Hematocrit 37.3% (39.0-53.0) Mean Corpuscular Volume 103fL (79-100) Mean Corpuscular Hemoglobin 32pg (25-35) Mean Corpuscular Hemoglobin Concent 31g/dL (31-37) Red Cell Distribution Width 15.0% (11.5-14.5) Platelet Count 199x10^3/uL (140-400) Neutrophils (%) (Auto) 83% (31-73) Lymphocytes (%) (Auto) 8% (24-48) Monocytes (%) (Auto) 9% (0-9) Eosinophils (%) (Auto) 0% (0-3) Basophils (%) (Auto) 0% (0-3) Neutrophils # (Auto) 13.9x10^3uL (1.8-7.7) Lymphocytes # (Auto) 1.4x10^3/uL (1.0-4.8) Monocytes # (Auto) 1.5x10^3/uL (0.0-1.1) Eosinophils # (Auto) 0.0x10^3/uL (0.0-0.7) Basophils # (Auto) 0.0x10^3/uL (0.0-0.2) Sodium Level 140mmol/L (136-145) Potassium Level 7.6mmol/L (3.5-5.1) Chloride Level 103mmol/L (98-107) Carbon Dioxide Level 24mmol/L (21-32) Anion Gap 13 (6-14) Blood Urea Nitrogen 46mg/dL (8-26) Creatinine 7.2mg/dL (0.7-1.3) Estimated GFR (Cockcroft-Gault) 7.6 Glucose Level 227mg/dL (70-99) Calcium Level 8.2mg/dL (8.5-10.1) Phosphorus Level 6.0mg/dL (2.6-4.7) Magnesium Level 1.9mg/dL (1.8-2.4) Albumin 2.9g/dL (3.4-5.0) Glucose (Fingerstick) 183mg/dL (70-99) Assessment Assessment Problems Medical Problems: (1) Retroperitoneal mass Status: Acute Problems: Plan Plan of Care Problems Medical Problems: (1) Retroperitoneal mass Status: Acute RIVKA PIEDRA MD Aug 26, 2016 09:35
[2016-08-26] MEDS ORDERED: DIALYSIS PATIENT. MC PRN (10:00)
--- NOTE | 2016-08-26 10:59 | PDOC ---
SURGICAL PROGRESS NOTE Subjective Pt on dialysis, notes some pain with cough, otherwise doing well Vital Signs Vital Signs Date Time Temp Pulse Resp B/P Pulse Ox O2 Delivery O2 Flow Rate FiO2 08/26/16 06:00 73 20 127/68 98 Nasal Cannula 4.0 08/26/16 04:00 99.8 99.8 I&O Intake and Output 08/26/16 07:00 Intake Total 509 ml Output Total 12 ml Balance 497 ml Intake Oral 0 ml Other 509 ml Output Urine Total 12 ml General: Alert, Oriented X3, Cooperative, No acute distress Abdomen: Soft, No tenderness Labs Laboratory Tests Test 08/25/16 06:30 08/25/16 09:30 08/25/16 12:22 08/25/16 13:16 Sodium Level 141mmol/L (136-145) Potassium Level 5.1mmol/L (3.5-5.1) Chloride Level 101mmol/L (98-107) Carbon Dioxide Level 30mmol/L (21-32) Anion Gap 10 (6-14) Blood Urea Nitrogen 30mg/dL (8-26) Creatinine 5.6mg/dL (0.7-1.3) Estimated GFR (Cockcroft-Gault) 10.2 Glucose Level 127mg/dL (70-99) Calcium Level 9.0mg/dL (8.5-10.1) White Blood Count 11.1x10^3/uL (4.0-11.0) Hemoglobin 10.8g/dL (13.0-17.5) Hematocrit 33.2% (39.0-53.0) Platelet Count 117x10^3/uL (140-400) Glucose (Fingerstick) 190mg/dL (70-99) 210mg/dL (70-99) Test 08/25/16 15:00 08/25/16 23:43 08/26/16 05:45 08/26/16 05:46 Nasal Screen MRSA (PCR) Negative (Negative) Glucose (Fingerstick) 240mg/dL (70-99) 183mg/dL (70-99) White Blood Count 16.8x10^3/uL (4.0-11.0) Red Blood Count 3.64x10^6/uL (4.30-5.70) Hemoglobin 11.7g/dL (13.0-17.5) Hematocrit 37.3% (39.0-53.0) Mean Corpuscular Volume 103fL (79-100) Mean Corpuscular Hemoglobin 32pg (25-35) Mean Corpuscular Hemoglobin Concent 31g/dL (31-37) Red Cell Distribution Width 15.0% (11.5-14.5) Platelet Count 199x10^3/uL (140-400) Neutrophils (%) (Auto) 83% (31-73) Lymphocytes (%) (Auto) 8% (24-48) Monocytes (%) (Auto) 9% (0-9) Eosinophils (%) (Auto) 0% (0-3) Basophils (%) (Auto) 0% (0-3) Neutrophils # (Auto) 13.9x10^3uL (1.8-7.7) Lymphocytes # (Auto) 1.4x10^3/uL (1.0-4.8) Monocytes # (Auto) 1.5x10^3/uL (0.0-1.1) Eosinophils # (Auto) 0.0x10^3/uL (0.0-0.7) Basophils # (Auto) 0.0x10^3/uL (0.0-0.2) Sodium Level 140mmol/L (136-145) Potassium Level 7.6mmol/L (3.5-5.1) Chloride Level 103mmol/L (98-107) Carbon Dioxide Level 24mmol/L (21-32) Anion Gap 13 (6-14) Blood Urea Nitrogen 46mg/dL (8-26) Creatinine 7.2mg/dL (0.7-1.3) Estimated GFR (Cockcroft-Gault) 7.6 Glucose Level 227mg/dL (70-99) Calcium Level 8.2mg/dL (8.5-10.1) Phosphorus Level 6.0mg/dL (2.6-4.7) Magnesium Level 1.9mg/dL (1.8-2.4) Albumin 2.9g/dL (3.4-5.0) Test 08/26/16 09:40 Potassium Level 6.9mmol/L (3.5-5.1) Laboratory Tests Test 08/25/16 12:22 08/25/16 13:16 08/25/16 15:00 08/25/16 23:43 Glucose (Fingerstick) 190mg/dL (70-99) 210mg/dL (70-99) 240mg/dL (70-99) Nasal Screen MRSA (PCR) Negative (Negative) Test 08/26/16 05:45 08/26/16 05:46 08/26/16 09:40 White Blood Count 16.8x10^3/uL (4.0-11.0) Red Blood Count 3.64x10^6/uL (4.30-5.70) Hemoglobin 11.7g/dL (13.0-17.5) Hematocrit 37.3% (39.0-53.0) Mean Corpuscular Volume 103fL (79-100) Mean Corpuscular Hemoglobin 32pg (25-35) Mean Corpuscular Hemoglobin Concent 31g/dL (31-37) Red Cell Distribution Width 15.0% (11.5-14.5) Platelet Count 199x10^3/uL (140-400) Neutrophils (%) (Auto) 83% (31-73) Lymphocytes (%) (Auto) 8% (24-48) Monocytes (%) (Auto) 9% (0-9) Eosinophils (%) (Auto) 0% (0-3) Basophils (%) (Auto) 0% (0-3) Neutrophils # (Auto) 13.9x10^3uL (1.8-7.7) Lymphocytes # (Auto) 1.4x10^3/uL (1.0-4.8) Monocytes # (Auto) 1.5x10^3/uL (0.0-1.1) Eosinophils # (Auto) 0.0x10^3/uL (0.0-0.7) Basophils # (Auto) 0.0x10^3/uL (0.0-0.2) Sodium Level 140mmol/L (136-145) Potassium Level 7.6mmol/L (3.5-5.1) 6.9mmol/L (3.5-5.1) Chloride Level 103mmol/L (98-107) Carbon Dioxide Level 24mmol/L (21-32) Anion Gap 13 (6-14) Blood Urea Nitrogen 46mg/dL (8-26) Creatinine 7.2mg/dL (0.7-1.3) Estimated GFR (Cockcroft-Gault) 7.6 Glucose Level 227mg/dL (70-99) Calcium Level 8.2mg/dL (8.5-10.1) Phosphorus Level 6.0mg/dL (2.6-4.7) Magnesium Level 1.9mg/dL (1.8-2.4) Albumin 2.9g/dL (3.4-5.0) Glucose (Fingerstick) 183mg/dL (70-99) Problem List Problems Medical Problems: (1) Retroperitoneal mass Status: Acute Assessment/Plan s/p right mass excision D/c NGT OOB appreciate consultants tx to floor if OK with others Problems: BEATA HARDY MD Aug 26, 2016 10:59
--- NOTE | 2016-08-26 13:49 | PDOC ---
PROGRESS NOTES Subjective Subjective Patient is feeling better today and offers no cardiac complaints Objective Objective Vital Signs Date Time Temp Pulse Resp B/P Pulse Ox O2 Delivery O2 Flow Rate FiO2 08/26/16 12:00 Nasal Cannula 4.0 08/26/16 12:00 98.3 78 20 126/58 97 98.3 Intake and Output 08/26/16 07:00 Intake Total 509 ml Output Total 12 ml Balance 497 ml Intake Oral 0 ml Other 509 ml Output Urine Total 12 ml Physical Exam Physical Exam No change in cardiac exam. Assessment Assessment Problems Medical Problems: (1) Retroperitoneal mass Status: Acute Plan Plan of Care The patient is stable from a cardiac standpoint. I agree with the current plan of care. Comment Review of Relevant I have reviewed the following items nicole (where applicable) has been applied. Labs Laboratory Tests Test 08/25/16 06:30 08/25/16 09:30 08/25/16 12:22 08/25/16 13:16 Sodium Level 141mmol/L (136-145) Potassium Level 5.1mmol/L (3.5-5.1) Chloride Level 101mmol/L (98-107) Carbon Dioxide Level 30mmol/L (21-32) Anion Gap 10 (6-14) Blood Urea Nitrogen 30mg/dL (8-26) Creatinine 5.6mg/dL (0.7-1.3) Estimated GFR (Cockcroft-Gault) 10.2 Glucose Level 127mg/dL (70-99) Calcium Level 9.0mg/dL (8.5-10.1) White Blood Count 11.1x10^3/uL (4.0-11.0) Hemoglobin 10.8g/dL (13.0-17.5) Hematocrit 33.2% (39.0-53.0) Platelet Count 117x10^3/uL (140-400) Glucose (Fingerstick) 190mg/dL (70-99) 210mg/dL (70-99) Test 08/25/16 15:00 08/25/16 23:43 08/26/16 05:45 08/26/16 05:46 Nasal Screen MRSA (PCR) Negative (Negative) Glucose (Fingerstick) 240mg/dL (70-99) 183mg/dL (70-99) White Blood Count 16.8x10^3/uL (4.0-11.0) Red Blood Count 3.64x10^6/uL (4.30-5.70) Hemoglobin 11.7g/dL (13.0-17.5) Hematocrit 37.3% (39.0-53.0) Mean Corpuscular Volume 103fL (79-100) Mean Corpuscular Hemoglobin 32pg (25-35) Mean Corpuscular Hemoglobin Concent 31g/dL (31-37) Red Cell Distribution Width 15.0% (11.5-14.5) Platelet Count 199x10^3/uL (140-400) Neutrophils (%) (Auto) 83% (31-73) Lymphocytes (%) (Auto) 8% (24-48) Monocytes (%) (Auto) 9% (0-9) Eosinophils (%) (Auto) 0% (0-3) Basophils (%) (Auto) 0% (0-3) Neutrophils # (Auto) 13.9x10^3uL (1.8-7.7) Lymphocytes # (Auto) 1.4x10^3/uL (1.0-4.8) Monocytes # (Auto) 1.5x10^3/uL (0.0-1.1) Eosinophils # (Auto) 0.0x10^3/uL (0.0-0.7) Basophils # (Auto) 0.0x10^3/uL (0.0-0.2) Sodium Level 140mmol/L (136-145) Potassium Level 7.6mmol/L (3.5-5.1) Chloride Level 103mmol/L (98-107) Carbon Dioxide Level 24mmol/L (21-32) Anion Gap 13 (6-14) Blood Urea Nitrogen 46mg/dL (8-26) Creatinine 7.2mg/dL (0.7-1.3) Estimated GFR (Cockcroft-Gault) 7.6 Glucose Level 227mg/dL (70-99) Calcium Level 8.2mg/dL (8.5-10.1) Phosphorus Level 6.0mg/dL (2.6-4.7) Magnesium Level 1.9mg/dL (1.8-2.4) Albumin 2.9g/dL (3.4-5.0) Test 08/26/16 09:40 Potassium Level 6.9mmol/L (3.5-5.1) Laboratory Tests Test 08/25/16 15:00 08/25/16 23:43 08/26/16 05:45 08/26/16 05:46 Nasal Screen MRSA (PCR) Negative (Negative) Glucose (Fingerstick) 240mg/dL (70-99) 183mg/dL (70-99) White Blood Count 16.8x10^3/uL (4.0-11.0) Red Blood Count 3.64x10^6/uL (4.30-5.70) Hemoglobin 11.7g/dL (13.0-17.5) Hematocrit 37.3% (39.0-53.0) Mean Corpuscular Volume 103fL (79-100) Mean Corpuscular Hemoglobin 32pg (25-35) Mean Corpuscular Hemoglobin Concent 31g/dL (31-37) Red Cell Distribution Width 15.0% (11.5-14.5) Platelet Count 199x10^3/uL (140-400) Neutrophils (%) (Auto) 83% (31-73) Lymphocytes (%) (Auto) 8% (24-48) Monocytes (%) (Auto) 9% (0-9) Eosinophils (%) (Auto) 0% (0-3) Basophils (%) (Auto) 0% (0-3) Neutrophils # (Auto) 13.9x10^3uL (1.8-7.7) Lymphocytes # (Auto) 1.4x10^3/uL (1.0-4.8) Monocytes # (Auto) 1.5x10^3/uL (0.0-1.1) Eosinophils # (Auto) 0.0x10^3/uL (0.0-0.7) Basophils # (Auto) 0.0x10^3/uL (0.0-0.2) Sodium Level 140mmol/L (136-145) Potassium Level 7.6mmol/L (3.5-5.1) Chloride Level 103mmol/L (98-107) Carbon Dioxide Level 24mmol/L (21-32) Anion Gap 13 (6-14) Blood Urea Nitrogen 46mg/dL (8-26) Creatinine 7.2mg/dL (0.7-1.3) Estimated GFR (Cockcroft-Gault) 7.6 Glucose Level 227mg/dL (70-99) Calcium Level 8.2mg/dL (8.5-10.1) Phosphorus Level 6.0mg/dL (2.6-4.7) Magnesium Level 1.9mg/dL (1.8-2.4) Albumin 2.9g/dL (3.4-5.0) Test 08/26/16 09:40 Potassium Level 6.9mmol/L (3.5-5.1) Medications Current Medications Ondansetron HCl (Zofran) 4 mg PRN Q6HRS PRN IV Nausea; Start 08/25/16 at 07:00 ; Stop 08/26/16 at 06:59; Status DC Fentanyl Citrate (Fentanyl 2ml Vial) 25 mcg PRN Q5MIN PRN IV MILD PAIN Last administered on 08/25/16t 17:41; Start 08/25/16 at 07:00; Stop 08/25/16 at 23:18 ; Status DC Fentanyl Citrate (Fentanyl 2ml Vial) 50 mcg PRN Q5MIN PRN IV MODERATE PAIN; Start 08/25/16 at 07:00; Stop 08/25/16 at 23:18; Status DC Morphine Sulfate 1 mg 1 mg PRN Q10MIN PRN IV SEVERE PAIN; Start 08/25/16 at 07: 00; Stop 08/25/16 at 23:18; Status DC Lactated Ringer's (Iv Lactated Ringers) 1,000 ml @ 0 mls/hr Q0M IV ; Start at 07:00; Stop 08/25/16 at 18:59; Status DC Lidocaine HCl 2 ml 1X PRN PRN ID IV START; Start 08/25/16 at 07:00; Stop at 06:59; Status DC Hydromorphone HCl (Dilaudid) 0.5 mg PRN Q10MIN PRN IV SEVERE PAIN, Second choice; Start 08/25/16 at 07:00; Stop 08/25/16 at 23:18; Status DC Prochlorperazine Edisylate 5 mg 5 mg PACU PRN PRN IV NAUSEA; Start 08/25/16 at 07:00; Stop 08/25/16 at 23:18; Status DC Cefazolin Sodium/ Dextrose 50 ml @ 100 mls/hr 1X PREOP PRN IV PRIOR TO PROCEDURE Last administered on 08/25/16 08:30; Start 08/25/16 at 06:00; Stop at 18:00; Status DC Sodium Chloride (Iv Sodium Chloride 0.9% 1000ml Bag) 1,000 ml @ 0 mls/hr 1X ONCE IV Last administered on 08/25/16 06:48; Start 08/25/16 at 06:45; Stop at 06:51; Status DC Scopolamine (Transderm-Scop) 1 patch 1X ONCE TD Last administered on 07:03; Start 08/25/16 at 07:00; Stop 08/25/16 at 07:01; Status DC Dexamethasone Sodium Phosphate (Decadron) 4 mg ONCE ONCE IV Last administered on 08/25/16 07:05; Start 08/25/16 at 07:00; Stop 08/25/16 at 07:01; Status DC Ondansetron HCl (Zofran) 4 mg 1X ONCE IV Last administered on 08/25/16 07:03 ; Start 08/25/16 at 07:00; Stop 08/25/16 at 07:01; Status DC Sevoflurane (Ultane) 60 ml STK-MED ONCE IH ; Start 08/25/16 at 07:10; Stop 08/25 at 07:11; Status DC Fentanyl Citrate 250 mcg 250 mcg STK-MED ONCE .ROUTE ; Start 08/25/16 at 07:11; Stop 08/25/16 at 07:12; Status DC Propofol (Diprivan) 20 ml @ As Directed STK-MED ONCE IV ; Start 08/25/16 at 07: 11; Stop 08/25/16 at 07:12; Status DC Lidocaine HCl 100 mg STK-MED ONCE .ROUTE ; Start 08/25/16 at 07:11; Stop at 07:12; Status DC Ondansetron HCl (Zofran) 4 mg STK-MED ONCE .ROUTE ; Start 08/25/16 at 07:11; Stop 08/25/16 at 07:12; Status DC Dexamethasone Sodium Phosphate (Decadron) 20 mg STK-MED ONCE .ROUTE ; Start at 07:11; Stop 08/25/16 at 07:12; Status DC Etomidate (Amidate) 20 mg STK-MED ONCE IV ; Start 08/25/16 at 07:11; Stop at 07:12; Status DC Rocuronium [place] (Zemuron) 50 mg STK-MED ONCE .ROUTE ; Start 08/25/16 at 07:30 ; Stop 08/25/16 at 07:31; Status DC Ketamine HCl 500 mg STK-MED ONCE .ROUTE ; Start 08/25/16 at 09:54; Stop at 09:55; Status DC Rocuronium [place] (Zemuron) 50 mg STK-MED ONCE .ROUTE ; Start 08/25/16 at 11:00 ; Stop 08/25/16 at 11:01; Status DC Cellulose 1 each STK-MED ONCE .ROUTE Last administered on 08/25/16t 11:15; Start 08/25/16 at 11:14; Stop 08/25/16 at 11:15; Status DC Glycopyrrolate (Robinul) 1 mg STK-MED ONCE .ROUTE ; Start 08/25/16 at 11:25; Stop 08/25/16 at 11:26; Status DC Neostigmine Methylsulfate 5 mg STK-MED ONCE .ROUTE ; Start 08/25/16 at 11:25; Stop 08/25/16 at 11:26; Status DC Enoxaparin Sodium (Lovenox 30mg Syringe) 30 mg QHS SQ Last administered on 08/25t 21:24; Start 08/25/16 at 21:00 Sodium Chloride 3 ml 3 ml QSHIFT PRN IV AFTER MEDS AND BLOOD DRAWS; Start 08/25 at 11:30 Lactated Ringer's (Iv Lactated Ringers) 1,000 ml @ 100 mls/hr Q10H IV ; Start 08/25/16 at 11:30; Stop 08/26/16 at 09:11; Status DC Acetaminophen/ Hydrocodone Bitart (Lortab 5/325) 1 tab PRN Q4HRS PRN PO MILD PAIN; Start 08/25/16 at 11:30 Hydromorphone HCl (Dilaudid) 0.2 mg PRN Q1HR PRN IV PAIN Last administered on t 00:14; Start 08/25/16 at 11:30 Docusate Sodium (Colace) 100 mg BID PO ; Start 08/25/16 at 21:00 Ondansetron HCl (Zofran) 4 mg PRN Q6HRS PRN IV NAUESA, 1ST CHOICE; Start at 11:30 Insulin Human Regular 3 unit 3 unit 1X ONCE IV Last administered on 08/25/16t 12:49; Start 08/25/16 at 12:45; Stop 08/25/16 at 12:46; Status DC Magnesium Sulfate/ Dextrose (Magnesium Sulfate PREMIX 2GM) 50 ml @ 25 mls/hr PRN DAILY PRN IV for Mag < 1.7 on am labs; Start 08/25/16 at 17:45 Hydralazine HCl 20 mg 20 mg PRN Q4HRS PRN IVP ELEVATED BP, SEE COMMENTS; Start 08/25/16 at 17:45 Sodium Chloride 1,000 ml @ 1,000 mls/hr Q1H PRN IV hypotension; Start 08/26/16 at 09:00; Stop 08/26/16 at 14:59 Sodium Chloride (Iv Sodium Chloride 0.9% 1000ml Bag) 1,000 ml @ 400 mls/hr Q2H30M PRN IV PATENCY; Start 08/26/16 at 09:00; Stop 08/26/16 at 20:59 Info (PHARMACY MONITORING -- do not chart) 1 each PRN DAILY PRN MC SEE COMMENTS ; Start 08/26/16 at 10:00 Active Scripts Active Reported Gabapentin 100 Mg Capsule 100 Mg PO BID Ranexa (Ranolazine) 500 Mg Tab.er.12h 1 Tab PO DAILY Phoslo (Calcium Acetate) 667 Mg Capsule 667 Mg PO TIDWMEALS Polyethylene Glycol 3350 255 Gm Powder 17 Gm PO DAILY PRN Anoro Ellipta 62.5-25 Mcg Inh (Umeclidinium Brm/Vilanterol Tr) 1 Each Disk.w.dev 1 Each IH DAILY Clopidogrel (Clopidogrel Bisulfate) 75 Mg Tablet 1 Tab PO DAILY Percocet 7.5-325 Mg Tablet (Oxycodone/Acetaminophen) 1 Each Tablet 1 Tab PO TID PRN Dialyvite 800 Tablet (Folic Acid/Vitamin B Comp W-C) 0.8 Mg Tablet 0.8 Mg PO DAILY NITROGLYCERIN SubLingual (Nitroglycerin) 0.4 Mg Tab.subl 0.4 Mg SL PRN Humulin 70-30 Vial (Hum Insulin Nph/Reg Insulin Hm) 100 Unit/1 Ml Vial 30 Unit SQ BIDWMEALS Allopurinol 300 Mg Tablet 300 Mg PO DAILY Pepcid (Famotidine) 20 Mg Tablet 20 Mg PO QHS Lanoxin (Digoxin) 125 Mcg Tablet 125 Mcg PO DAILY Flomax (Tamsulosin Hcl) 0.4 Mg Cap.er.24h 0.4 Mg PO HS Aspirin 81 Mg Tab.chew 81 Mg PO DAILY Vitals/I & O Vital Sign - Last 24 Hours 08/25/16 08/25/16 08/25/16 08/25/16 14:00 14:06 14:15 14:30 Pulse 70 68 70 Resp 20 16 22 18 B/P 132/56 134/54 136/54 Pulse Ox 97 98 97 97 O2 Delivery Nasal Cannula Nasal Cannula Nasal Cannula Nasal Cannula O2 Flow Rate 4.0 4.0 4.0 4.0 08/25/16 08/25/16 08/25/16 08/25/16 14:36 14:45 15:00 15:15 Pulse 78 74 70 Resp 22 17 20 B/P 152/70 144/60 142/62 Pulse Ox 96 97 97 O2 Delivery Nasal Cannula Nasal Cannula Nasal Cannula Nasal Cannula O2 Flow Rate 4.0 4.0 4.0 08/25/16 08/25/16 08/25/16 08/25/16 15:30 15:45 16:21 16:30 Pulse 70 72 72 Resp 20 18 20 B/P 152/60 146/62 158/64 Pulse Ox 97 99 99 O2 Delivery Nasal Cannula Nasal Cannula Mask Nasal Cannula O2 Flow Rate 4.0 4.0 4.0 4.0 08/25/16 08/25/16 08/25/16 08/25/16 17:00 17:41 17:43 18:11 Temp 98.3 98.3 Pulse 76 81 Resp 20 16 B/P 168/72 156/63 Pulse Ox 100 100 100 100 O2 Delivery Nasal Cannula Nasal Cannula Nasal Cannula O2 Flow Rate 4.0 4.0 4.0 4.0 1/17/17 1/17/17 1/17/17 1/17/17 19:24 20:00 20:00 20:33 Pulse 76 Resp 20 20 20 B/P 130/56 Pulse Ox 100 98 97 O2 Delivery Nasal Cannula Nasal Cannula Nasal Cannula Nasal Cannula O2 Flow Rate 4.0 4.0 4.0 4.0 08/25/16 08/25/16 08/25/16 08/25/16 21:00 22:00 23:00 23:59 Pulse 86 89 86 Resp 16 16 20 B/P 120/60 112/56 109/56 Pulse Ox 97 96 96 O2 Delivery Nasal Cannula Nasal Cannula Nasal Cannula Nasal Cannula O2 Flow Rate 4.0 4.0 4.0 4.0 08/26/16 08/26/1608/26/08/26/16 00:00 00:14 00:45 01:01 Temp 98.4 98.4 Pulse 87 89 Resp 22 20 16 16 B/P 116/58 118/64 Pulse Ox 97 96 97 97 O2 Delivery Nasal Cannula Nasal Cannula Nasal Cannula Nasal Cannula O2 Flow Rate 4.0 4.0 4.0 4.0 08/26/16 08/26/16 08/26/16 08/26/16 02:00 03:00 04:00 04:00 Temp 99.8 99.8 Pulse 89 83 85 Resp 18 16 18 B/P 106/61 102/57 103/60 Pulse Ox 97 93 93 O2 Delivery Nasal Cannula Nasal Cannula Nasal Cannula Nasal Cannula O2 Flow Rate 4.0 4.0 3.0 4.0 08/26/16 08/26/1608/26/17 08/26/16 05:18 06:00 07:00 08:00 Pulse 77 73 86 Resp 20 20 20 B/P 123/66 127/68 126/66 Pulse Ox 97 98 97 O2 Delivery Nasal Cannula Nasal Cannula Nasal Cannula Nasal Cannula O2 Flow Rate 4.0 4.0 4.0 4.0 08/26/1608/26/17 08/26/17 08/26/16 08:00 09:00 10:00 11:00 Temp 98.9 98.9 Pulse 62 80 68 74 Resp 18 20 22 20 B/P 122/64 126/64 128/58 126/60 Pulse Ox 97 96 97 96 O2 Delivery Nasal Cannula Nasal Cannula Nasal Cannula Nasal Cannula O2 Flow Rate 4.0 4.0 4.0 4.0 08/26/16 08/26/16 12:00 12:00 Temp 98.3 98.3 Pulse 78 Resp 20 B/P 126/58 Pulse Ox 97 O2 Delivery Nasal Cannula Nasal Cannula O2 Flow Rate 4.0 4.0 Intake and Output 08/25/16 08/25/16 08/26/16 15:00 23:00 07:00 Intake Total 509 ml Output Total 5 ml 3 ml 4 ml Balance -5 ml 506 ml -4 ml LEXI ALTAMIRANO MD Aug 26, 2016 13:49
--- NOTE | 2016-08-26 17:19 | CONS ---
DATE OF CONSULTATION: PRIMARY PHYSICIAN: Dr. Gomes. REASON FOR CONSULTATION: ESRD, dialysis Wednesday, Wednesday, Wednesday. HISTORY OF PRESENT ILLNESS: The patient is a 65-year-old gentleman, who is known to have colon cancer. He was found to have a right retroperitoneal mass, which was resected today by Dr. Gomes. He is now in the ICU and we were asked to assist with fluid management, as well as ESRD status. PAST MEDICAL HISTORY: Significant for: 1. Colon cancer, status post transverse colon resection. 2. Congestive heart failure. 3. CAD. 4. Diabetes, status post retinal detachment. 5. ESRD, dialysis. 6. Atrial fibrillation. 7. Coronary artery disease, status post stents. 8. Cholecystectomy. 9. CABG with defibrillator placement. 10. Left eye surgery. 11. Cataract extraction, lens implants. 12. Peripheral vascular disease. 13. Dialysis access surgeries. 14. Pacemaker/defibrillator placement. 15. COPD. 16. Emphysema. 17. Sleep apnea. 18. Colon polyps and colon cancer. 19. GERD. 20. Paget's disease of the bone. 21. Arthritis/gout. 22. Depression, anxiety. 23. Previous history of tobaccoism. 24. 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 FAMILY HISTORY: Positive for diabetes, cancer, and CVA. SOCIAL HISTORY: , lives with his family. Previous smoker. For rest of details, see electronic records. RIVKA PIEDRA MD DR: MUSTAPHA/macho JOB#: [id number] / [id number]
[2016-08-26] MEDS ORDERED: MAGNESIUM SULFATE 2GM 50 ML IV ONE (21:30)
[2016-08-26] MEDS: HYDROCODONE/APAP 5/325MG TABLET. PO PRN (21:35)
[2016-08-26] MEDS: HEPARIN PF for SUB-Q USE 5,000 UNIT/0.5 ML VIAL. SQ SCH (21:43)
[2016-08-27] MEDS: HYDROCODONE/APAP 5/325MG TABLET. PO PRN ×3 (03:02→13:14)
[2016-08-27 03:40] VITALS: BP 122/65
[2016-08-27] MEDS: HEPARIN PF for SUB-Q USE 5,000 UNIT/0.5 ML VIAL. SQ SCH ×3 (06:19→22:04)
[2016-08-27 07:00] VITALS: BP 117/60
[2016-08-27] MEDS: DOCUSATE SODIUM 100 MG CAPSULE PO SCH ×2 (08:33→21:56)
[2016-08-27 09:06] LABS: ALBUMIN 2.5 g/dL (3.4-5.0); CALCIUM 7.9 mg/dL (8.5-10.1); GFR 9.4; PHOSPHORUS 4.8 mg/dL (2.6-4.7); POTASSIUM 4.1 mmol/L (3.5-5.1)
--- NOTE | 2016-08-27 09:37 | PDOC ---
SURGICAL PROGRESS NOTE Subjective Pt feels better today, less pain, barbara clears well, ready to advance, did have fall yesterday, but no injuries, encouraged to call before getting up Vital Signs Vital Signs Date Time Temp Pulse Resp B/P Pulse Ox O2 Delivery O2 Flow Rate FiO2 08/27/16 08:33 Nasal Cannula 2.0 08/27/16 07:00 98.2 77 18 117/60 99 98.2 I&O Intake and Output 08/27/16 07:00 Intake Total 650 ml Output Total 16 ml Balance 634 ml Intake Oral 590 ml IV Total 60 ml Output Urine Total 16 ml General: Alert, Oriented X3, Cooperative, No acute distress Abdomen: Soft, No tenderness, Other (dressing c/d/i) Labs Laboratory Tests Test 08/25/16 12:22 08/25/16 13:16 08/25/16 15:00 08/25/16 23:43 Glucose (Fingerstick) 190mg/dL (70-99) 210mg/dL (70-99) 240mg/dL (70-99) Nasal Screen MRSA (PCR) Negative (Negative) Test 08/26/16 05:45 08/26/16 05:46 08/26/16 09:40 08/26/16 20:49 White Blood Count 16.8x10^3/uL (4.0-11.0) Red Blood Count 3.64x10^6/uL (4.30-5.70) Hemoglobin 11.7g/dL (13.0-17.5) Hematocrit 37.3% (39.0-53.0) Mean Corpuscular Volume 103fL (79-100) Mean Corpuscular Hemoglobin 32pg (25-35) Mean Corpuscular Hemoglobin Concent 31g/dL (31-37) Red Cell Distribution Width 15.0% (11.5-14.5) Platelet Count 199x10^3/uL (140-400) Neutrophils (%) (Auto) 83% (31-73) Lymphocytes (%) (Auto) 8% (24-48) Monocytes (%) (Auto) 9% (0-9) Eosinophils (%) (Auto) 0% (0-3) Basophils (%) (Auto) 0% (0-3) Neutrophils # (Auto) 13.9x10^3uL (1.8-7.7) Lymphocytes # (Auto) 1.4x10^3/uL (1.0-4.8) Monocytes # (Auto) 1.5x10^3/uL (0.0-1.1) Eosinophils # (Auto) 0.0x10^3/uL (0.0-0.7) Basophils # (Auto) 0.0x10^3/uL (0.0-0.2) Sodium Level 140mmol/L (136-145) Potassium Level 7.6mmol/L (3.5-5.1) 6.9mmol/L (3.5-5.1) Chloride Level 103mmol/L (98-107) Carbon Dioxide Level 24mmol/L (21-32) Anion Gap 13 (6-14) Blood Urea Nitrogen 46mg/dL (8-26) Creatinine 7.2mg/dL (0.7-1.3) Estimated GFR (Cockcroft-Gault) 7.6 Glucose Level 227mg/dL (70-99) Calcium Level 8.2mg/dL (8.5-10.1) Phosphorus Level 6.0mg/dL (2.6-4.7) Magnesium Level 1.9mg/dL (1.8-2.4) Albumin 2.9g/dL (3.4-5.0) Glucose (Fingerstick) 183mg/dL (70-99) 161mg/dL (70-99) Test 08/27/16 07:25 08/27/16 08:49 Glucose (Fingerstick) 188mg/dL (70-99) Sodium Level 140mmol/L (136-145) Potassium Level 4.1mmol/L (3.5-5.1) Chloride Level 99mmol/L (98-107) Carbon Dioxide Level 32mmol/L (21-32) Anion Gap 9 (6-14) Blood Urea Nitrogen 36mg/dL (8-26) Creatinine 6.0mg/dL (0.7-1.3) Estimated GFR (Cockcroft-Gault) 9.4 Glucose Level 153mg/dL (70-99) Calcium Level 7.9mg/dL (8.5-10.1) Phosphorus Level 4.8mg/dL (2.6-4.7) Magnesium Level 2.0mg/dL (1.8-2.4) Albumin 2.5g/dL (3.4-5.0) Laboratory Tests Test 08/26/16 09:40 08/26/16 20:49 08/27/16 07:25 08/27/16 08:49 Potassium Level 6.9mmol/L (3.5-5.1) 4.1mmol/L (3.5-5.1) Glucose (Fingerstick) 161mg/dL (70-99) 188mg/dL (70-99) Sodium Level 140mmol/L (136-145) Chloride Level 99mmol/L (98-107) Carbon Dioxide Level 32mmol/L (21-32) Anion Gap 9 (6-14) Blood Urea Nitrogen 36mg/dL (8-26) Creatinine 6.0mg/dL (0.7-1.3) Estimated GFR (Cockcroft-Gault) 9.4 Glucose Level 153mg/dL (70-99) Calcium Level 7.9mg/dL (8.5-10.1) Phosphorus Level 4.8mg/dL (2.6-4.7) Magnesium Level 2.0mg/dL (1.8-2.4) Albumin 2.5g/dL (3.4-5.0) Problem List Problems Medical Problems: (1) Retroperitoneal mass Status: Acute Assessment/Plan s/p right nephrectomy ADAT cont supportive care Problems: BEATA HARDY MD Aug 27, 2016 09:37
--- NOTE | 2016-08-27 10:50 | PDOC ---
SUBJECTIVE ROS ESRD Doign and feeling OK overall CVS: no Orthopnea, no CP RESP: no SOB, no MEJIA GI: no Nausea, no Vomiting : no Dysuria, no Urgency OBJECTIVE Vital Signs Vital Signs Date Time Temp Pulse Resp B/P Pulse Ox O2 Delivery O2 Flow Rate FiO2 08/27/16 08:33 Nasal Cannula 2.0 08/27/16 07:00 98.2 77 18 117/60 99 98.2 I & 0 Intake and Output 08/27/16 07:00 Intake Total 650 ml Output Total 16 ml Balance 634 ml Intake Oral 590 ml IV Total 60 ml Output Urine Total 16 ml PHYSICAL EXAM Physical Exam General Appearance: Awake Alert Oriented x 3 In no Distress Eyes: VIsion Unchanged Conjunctiva Normal EN: No EN Drainage Mucous Memb. moist Neck: no JVD no JVP Supple no Thyromegaly CVS: S1 S2 sys Murmur No Gallop No Rub no Edema Resp: no Rales no Rhonchi no Acc. Muscle use GI: BS +ve NO Bruit + Tender Non Distended : no CVA tenderness; no Suprapubic Tenderness Left foot in Cast ASSESSMENT/PLAN Assessment/Plan ESRD: Current FLuid and E-lyte status does not necessitate emergent need for Dialysis. Will re-evaluate for Dialysis in am and continue on MWF schedule. Anemia: suspectedly Post -op; start Epogen if hgb < 10 in am. Transfuse with next HD as needed. HTN: Currently NPO so BP meds reviewed and will be gradually restarted when able to. prn Hydralazine. See orders for changes. ^K yest - now better after yesterdays HD Hypoalbuminemia / Nutrition - to Begin CLD today as reported. Discussed Plan of Care with pt COMMENT/RELEVANT DATA Meds Current Medications Medications (Trade) Dose Ordered Sig/Andrew Start Time Stop Time Status Last Admin Dose Admin Acetaminophen/ Hydrocodone Bitart (Lortab 5/325) 1 tab PRN Q4HRS PRN 08/25/16 11:30 08/27/16 08:33 1 TAB Cefazolin Sodium/ Dextrose (Ancef 2gm Premix) 50 ml @ 100 mls/hr 1X PREOP PRN 08/25/16 06:00 08/25/16 18:00 DC 08/25/16 08:30 100 MLS/HR Cellulose 1 each STK-MED ONCE 08/25/16 11:14 08/25/16 11:15 DC 08/25/16 11:15 1 EACH Dexamethasone Sodium Phosphate (Decadron) 20 mg STK-MED ONCE 08/25/16 07:11 08/25/16 07:12 DC Docusate Sodium (Colace) 100 mg BID 08/25/16 21:00 08/27/16 08:33 100 MG Enoxaparin Sodium (Lovenox 30mg Syringe) 30 mg QHS 08/25/16 21:00 08/26/16 14:21 DC 08/25/16 21:24 30 MG Etomidate (Amidate) 20 mg STK-MED ONCE 08/25/16 07:11 08/25/16 07:12 DC Fentanyl Citrate (Fentanyl 2ml Vial) 50 mcg PRN Q5MIN PRN 08/25/16 07:00 08/25/16 23:18 DC Fentanyl Citrate 250 mcg 250 mcg STK-MED ONCE 08/25/16 07:11 08/25/16 07:12 DC Glycopyrrolate (Robinul) 1 mg STK-MED ONCE 08/25/16 11:25 08/25/16 11:26 DC Heparin Sodium (Porcine) 5000 unit 5,000 unit Q8HRS 08/26/16 22:00 08/27/16 06:19 5,000 UNIT Hydralazine HCl 20 mg 20 mg PRN Q4HRS PRN 08/25/16 17:45 Hydromorphone HCl (Dilaudid) 0.2 mg PRN Q1HR PRN 08/25/16 11:30 08/26/16 17:20 0.2 MG Info (PHARMACY MONITORING -- do not chart) 1 each PRN DAILY PRN 08/26/16 10:00 Insulin Human Regular (Novolin R Vial) 3 unit 1X ONCE 08/25/16 12:45 08/25/16 12:46 DC 08/25/16 12:49 3 UNIT Ketamine HCl 500 mg STK-MED ONCE 08/25/16 09:54 08/25/16 09:55 DC Lactated Ringer's (Iv Lactated Ringers) 1,000 ml @ 100 mls/hr Q10H 08/25/16 11:30 08/26/16 09:11 DC Lidocaine HCl 100 mg STK-MED ONCE 08/25/16 07:11 08/25/16 07:12 DC Magnesium Sulfate/ Dextrose (Magnesium Sulfate PREMIX 2GM) 50 ml @ 25 mls/hr 1X ONCE 08/26/16 21:30 08/26/16 23:29 DC 08/26/16 21:34 25 MLS/HR Morphine Sulfate 1 mg PRN Q10MIN PRN 08/25/16 07:00 08/25/16 23:18 DC Neostigmine Methylsulfate 5 mg STK-MED ONCE 08/25/16 11:25 08/25/16 11:26 DC Ondansetron HCl (Zofran) 4 mg PRN Q6HRS PRN 08/25/16 11:30 Prochlorperazine Edisylate 5 mg 5 mg PACU PRN PRN 08/25/16 07:00 08/25/16 23:18 DC Propofol (Diprivan) 20 ml @ As Directed STK-MED ONCE 08/25/16 07:11 08/25/16 07:12 DC Rocuronium Radiant (Zemuron) 50 mg STK-MED ONCE 08/25/16 11:00 08/25/16 11:01 DC Scopolamine (Transderm-Scop) 1 patch 1X ONCE 08/25/16 07:00 08/25/16 07:01 DC 08/25/16 07:03 1 PATCH Sevoflurane (Ultane) 60 ml STK-MED ONCE 08/25/16 07:10 08/25/16 07:11 DC Sodium Chloride (Iv Sodium Chloride 0.9% 1000ml Bag) 1,000 ml @ 400 mls/hr Q2H30M PRN 08/26/16 09:00 08/26/16 20:59 DC Sodium Chloride 3 ml 3 ml QSHIFT PRN 08/25/16 11:30 Lab Laboratory Tests Test 08/26/16 20:49 08/27/16 07:25 08/27/16 08:49 Glucose (Fingerstick) 161mg/dL (70-99) 188mg/dL (70-99) Sodium Level 140mmol/L (136-145) Potassium Level 4.1mmol/L (3.5-5.1) Chloride Level 99mmol/L (98-107) Carbon Dioxide Level 32mmol/L (21-32) Anion Gap 9 (6-14) Blood Urea Nitrogen 36mg/dL (8-26) Creatinine 6.0mg/dL (0.7-1.3) Estimated GFR (Cockcroft-Gault) 9.4 Glucose Level 153mg/dL (70-99) Calcium Level 7.9mg/dL (8.5-10.1) Phosphorus Level 4.8mg/dL (2.6-4.7) Magnesium Level 2.0mg/dL (1.8-2.4) Albumin 2.5g/dL (3.4-5.0) RIVKA PIEDRA MD Aug 27, 2016 10:50
[2016-08-27 11:00] VITALS: BP 123/58
[2016-08-27 15:00] VITALS: BP 135/61
[2016-08-27] MEDS ORDERED: NITROGLYCERIN SUBLINGUAL 0.4 MG BOTTLE OF 25. SL PRN (15:30)
--- NOTE | 2016-08-27 15:40 | PDOC ---
PROGRESS NOTES Subjective Subjective Patient has no new cardiac complaints. Admits to pain at incision site. Objective Objective Vital Signs Date Time Temp Pulse Resp B/P Pulse Ox O2 Delivery O2 Flow Rate FiO2 08/27/16 15:00 97.4 69 16 135/61 94 Nasal Cannula 2.0 97.4 Intake and Output 08/27/16 07:00 Intake Total 650 ml Output Total 16 ml Balance 634 ml Intake Oral 590 ml IV Total 60 ml Output Urine Total 16 ml Physical Exam Physical Exam No significant changes in cardiac exam. Minimal air flow to lung bases likely due to splinting. Assessment Assessment Problems Medical Problems: (1) Retroperitoneal mass Status: Acute Plan Plan of Care Discussed using incentive spirometry frequently and PT/OT due to respiratory splinting as a result of abdominal incision. Will obtain CXR in morning due to increased oxygen requirement and splinting. Comment Review of Relevant I have reviewed the following items nicole (where applicable) has been applied. Labs Laboratory Tests Test 08/25/16 23:43 08/26/16 05:45 08/26/16 05:46 08/26/16 09:40 Glucose (Fingerstick) 240mg/dL (70-99) 183mg/dL (70-99) White Blood Count 16.8x10^3/uL (4.0-11.0) Red Blood Count 3.64x10^6/uL (4.30-5.70) Hemoglobin 11.7g/dL (13.0-17.5) Hematocrit 37.3% (39.0-53.0) Mean Corpuscular Volume 103fL (79-100) Mean Corpuscular Hemoglobin 32pg (25-35) Mean Corpuscular Hemoglobin Concent 31g/dL (31-37) Red Cell Distribution Width 15.0% (11.5-14.5) Platelet Count 199x10^3/uL (140-400) Neutrophils (%) (Auto) 83% (31-73) Lymphocytes (%) (Auto) 8% (24-48) Monocytes (%) (Auto) 9% (0-9) Eosinophils (%) (Auto) 0% (0-3) Basophils (%) (Auto) 0% (0-3) Neutrophils # (Auto) 13.9x10^3uL (1.8-7.7) Lymphocytes # (Auto) 1.4x10^3/uL (1.0-4.8) Monocytes # (Auto) 1.5x10^3/uL (0.0-1.1) Eosinophils # (Auto) 0.0x10^3/uL (0.0-0.7) Basophils # (Auto) 0.0x10^3/uL (0.0-0.2) Sodium Level 140mmol/L (136-145) Potassium Level 7.6mmol/L (3.5-5.1) 6.9mmol/L (3.5-5.1) Chloride Level 103mmol/L (98-107) Carbon Dioxide Level 24mmol/L (21-32) Anion Gap 13 (6-14) Blood Urea Nitrogen 46mg/dL (8-26) Creatinine 7.2mg/dL (0.7-1.3) Estimated GFR (Cockcroft-Gault) 7.6 Glucose Level 227mg/dL (70-99) Calcium Level 8.2mg/dL (8.5-10.1) Phosphorus Level 6.0mg/dL (2.6-4.7) Magnesium Level 1.9mg/dL (1.8-2.4) Albumin 2.9g/dL (3.4-5.0) Test 08/26/16 20:49 08/27/16 07:25 08/27/16 08:49 08/27/16 11:12 Glucose (Fingerstick) 161mg/dL (70-99) 188mg/dL (70-99) 204mg/dL (70-99) Sodium Level 140mmol/L (136-145) Potassium Level 4.1mmol/L (3.5-5.1) Chloride Level 99mmol/L (98-107) Carbon Dioxide Level 32mmol/L (21-32) Anion Gap 9 (6-14) Blood Urea Nitrogen 36mg/dL (8-26) Creatinine 6.0mg/dL (0.7-1.3) Estimated GFR (Cockcroft-Gault) 9.4 Glucose Level 153mg/dL (70-99) Calcium Level 7.9mg/dL (8.5-10.1) Phosphorus Level 4.8mg/dL (2.6-4.7) Magnesium Level 2.0mg/dL (1.8-2.4) Albumin 2.5g/dL (3.4-5.0) Laboratory Tests Test 08/26/16 20:49 08/27/16 07:25 08/27/16 08:49 08/27/16 11:12 Glucose (Fingerstick) 161mg/dL (70-99) 188mg/dL (70-99) 204mg/dL (70-99) Sodium Level 140mmol/L (136-145) Potassium Level 4.1mmol/L (3.5-5.1) Chloride Level 99mmol/L (98-107) Carbon Dioxide Level 32mmol/L (21-32) Anion Gap 9 (6-14) Blood Urea Nitrogen 36mg/dL (8-26) Creatinine 6.0mg/dL (0.7-1.3) Estimated GFR (Cockcroft-Gault) 9.4 Glucose Level 153mg/dL (70-99) Calcium Level 7.9mg/dL (8.5-10.1) Phosphorus Level 4.8mg/dL (2.6-4.7) Magnesium Level 2.0mg/dL (1.8-2.4) Albumin 2.5g/dL (3.4-5.0) Medications Current Medications Ondansetron HCl (Zofran) 4 mg PRN Q6HRS PRN IV Nausea; Start 08/25/16 at 07:00 ; Stop 08/26/16 at 06:59; Status DC Fentanyl Citrate (Fentanyl 2ml Vial) 25 mcg PRN Q5MIN PRN IV MILD PAIN Last administered on 08/25/16t 17:41; Start 08/25/16 at 07:00; Stop 08/25/16 at 23:18 ; Status DC Fentanyl Citrate (Fentanyl 2ml Vial) 50 mcg PRN Q5MIN PRN IV MODERATE PAIN; Start 08/25/16 at 07:00; Stop 08/25/16 at 23:18; Status DC Morphine Sulfate 1 mg 1 mg PRN Q10MIN PRN IV SEVERE PAIN; Start 08/25/16 at 07: 00; Stop 08/25/16 at 23:18; Status DC Lactated Ringer's (Iv Lactated Ringers) 1,000 ml @ 0 mls/hr Q0M IV ; Start at 07:00; Stop 08/25/16 at 18:59; Status DC Lidocaine HCl 2 ml 1X PRN PRN ID IV START; Start 08/25/16 at 07:00; Stop at 06:59; Status DC Hydromorphone HCl (Dilaudid) 0.5 mg PRN Q10MIN PRN IV SEVERE PAIN, Second choice; Start 08/25/16 at 07:00; Stop 08/25/16 at 23:18; Status DC Prochlorperazine Edisylate 5 mg 5 mg PACU PRN PRN IV NAUSEA; Start 08/25/16 at 07:00; Stop 08/25/16 at 23:18; Status DC Cefazolin Sodium/ Dextrose 50 ml @ 100 mls/hr 1X PREOP PRN IV PRIOR TO PROCEDURE Last administered on 08/25/16 08:30; Start 08/25/16 at 06:00; Stop at 18:00; Status DC Sodium Chloride (Iv Sodium Chloride 0.9% 1000ml Bag) 1,000 ml @ 0 mls/hr 1X ONCE IV Last administered on 08/25/16 06:48; Start 08/25/16 at 06:45; Stop at 06:51; Status DC Scopolamine (Transderm-Scop) 1 patch 1X ONCE TD Last administered on 07:03; Start 08/25/16 at 07:00; Stop 08/25/16 at 07:01; Status DC Dexamethasone Sodium Phosphate (Decadron) 4 mg ONCE ONCE IV Last administered on 08/25/16 07:05; Start 08/25/16 at 07:00; Stop 08/25/16 at 07:01; Status DC Ondansetron HCl (Zofran) 4 mg 1X ONCE IV Last administered on 08/25/16 07:03 ; Start 08/25/16 at 07:00; Stop 08/25/16 at 07:01; Status DC Sevoflurane (Ultane) 60 ml STK-MED ONCE IH ; Start 08/25/16 at 07:10; Stop 08/25 at 07:11; Status DC Fentanyl Citrate 250 mcg 250 mcg STK-MED ONCE .ROUTE ; Start 08/25/16 at 07:11; Stop 08/25/16 at 07:12; Status DC Propofol (Diprivan) 20 ml @ As Directed STK-MED ONCE IV ; Start 08/25/16 at 07: 11; Stop 08/25/16 at 07:12; Status DC Lidocaine HCl 100 mg STK-MED ONCE .ROUTE ; Start 08/25/16 at 07:11; Stop at 07:12; Status DC Ondansetron HCl (Zofran) 4 mg STK-MED ONCE .ROUTE ; Start 08/25/16 at 07:11; Stop 08/25/16 at 07:12; Status DC Dexamethasone Sodium Phosphate (Decadron) 20 mg STK-MED ONCE .ROUTE ; Start at 07:11; Stop 08/25/16 at 07:12; Status DC Etomidate (Amidate) 20 mg STK-MED ONCE IV ; Start 08/25/16 at 07:11; Stop at 07:12; Status DC Rocuronium [place] (Zemuron) 50 mg STK-MED ONCE .ROUTE ; Start 08/25/16 at 07:30 ; Stop 08/25/16 at 07:31; Status DC Ketamine HCl 500 mg STK-MED ONCE .ROUTE ; Start 08/25/16 at 09:54; Stop at 09:55; Status DC Rocuronium [place] (Zemuron) 50 mg STK-MED ONCE .ROUTE ; Start 08/25/16 at 11:00 ; Stop 08/25/16 at 11:01; Status DC Cellulose 1 each STK-MED ONCE .ROUTE Last administered on 08/25/16t 11:15; Start 08/25/16 at 11:14; Stop 08/25/16 at 11:15; Status DC Glycopyrrolate (Robinul) 1 mg STK-MED ONCE .ROUTE ; Start 08/25/16 at 11:25; Stop 08/25/16 at 11:26; Status DC Neostigmine Methylsulfate 5 mg STK-MED ONCE .ROUTE ; Start 08/25/16 at 11:25; Stop 08/25/16 at 11:26; Status DC Enoxaparin Sodium (Lovenox 30mg Syringe) 30 mg QHS SQ Last administered on 08/25t 21:24; Start 08/25/16 at 21:00; Stop 08/26/16 at 14:21; Status DC Sodium Chloride 3 ml 3 ml QSHIFT PRN IV AFTER MEDS AND BLOOD DRAWS; Start 08/25 at 11:30 Lactated Ringer's (Iv Lactated Ringers) 1,000 ml @ 100 mls/hr Q10H IV ; Start 08/25/16 at 11:30; Stop 08/26/16 at 09:11; Status DC Acetaminophen/ Hydrocodone Bitart (Lortab 5/325) 1 tab PRN Q4HRS PRN PO MILD PAIN Last administered on 08/27/16 13:14; Start 08/25/16 at 11:30 Hydromorphone HCl (Dilaudid) 0.2 mg PRN Q1HR PRN IV PAIN Last administered on 17:20; Start 08/25/16 at 11:30 Docusate Sodium (Colace) 100 mg BID PO Last administered on 08/27/16 08:33; Start 08/25/16 at 21:00 Ondansetron HCl (Zofran) 4 mg PRN Q6HRS PRN IV NAUESA, 1ST CHOICE; Start at 11:30 Insulin Human Regular 3 unit 3 unit 1X ONCE IV Last administered on 08/25/16 12:49; Start 08/25/16 at 12:45; Stop 08/25/16 at 12:46; Status DC Magnesium Sulfate/ Dextrose (Magnesium Sulfate PREMIX 2GM) 50 ml @ 25 mls/hr PRN DAILY PRN IV for Mag < 1.7 on am labs; Start 08/25/16 at 17:45 Hydralazine HCl 20 mg 20 mg PRN Q4HRS PRN IVP ELEVATED BP, SEE COMMENTS; Start 08/25/16 at 17:45 Sodium Chloride 1,000 ml @ 1,000 mls/hr Q1H PRN IV hypotension; Start 08/26/16 at 09:00; Stop 08/26/16 at 14:59; Status DC Sodium Chloride (Iv Sodium Chloride 0.9% 1000ml Bag) 1,000 ml @ 400 mls/hr Q2H30M PRN IV PATENCY; Start 08/26/16 at 09:00; Stop 08/26/16 at 20:59; Status DC Info (PHARMACY MONITORING -- do not chart) 1 each PRN DAILY PRN MC SEE COMMENTS ; Start 08/26/16 at 10:00 Heparin Sodium (Porcine) 5000 unit 5,000 unit Q8HRS SQ Last administered on t 13:29; Start 08/26/16 at 22:00 Magnesium Sulfate/ Dextrose (Magnesium Sulfate PREMIX 2GM) 50 ml @ 25 mls/hr 1X ONCE IV Last administered on 08/26/16 21:34; Start 08/26/16 at 21:30; Stop 08/26/16 at 23:29; Status DC Allopurinol (Zyloprim) 300 mg DAILY PO ; Start 08/27/16 at 16:00 Aspirin (Children'S Aspirin) 81 mg DAILY PO ; Start 08/27/16 at 16:00 Calcium Acetate (Phoslo) 667 mg TIDWMEALS PO ; Start 08/27/16 at 17:00 Digoxin (Lanoxin) 125 mcg DAILY PO ; Start 08/27/16 at 16:00 Folic Acid/ Multivitamins/Vit B12 (Nephro-Mouna) 1 tab DAILY PO ; Start 08/27/16 at 16:00 Gabapentin (Neurontin) 100 mg BID PO ; Start 08/27/16 at 21:00 Nitroglycerin (Nitrostat) 0.4 mg PRN Q5MIN PRN SL CHEST PAIN; Start 08/27/16 at 15:30 Oxycodone/ Acetaminophen (Percocet 7.5/ 325) 1 tab PRN TID PRN PO PAIN; Start 08/27/16 at 15:30 Polyethylene Glycol (miraLAX PACKET) 17 gm PRN BID PRN PO CONSTIPATION; Start 08/28/16 at 09:00 Ranolazine (Ranexa) 500 mg DAILY PO ; Start 08/27/16 at 16:00 Tamsulosin HCl (Flomax) 0.4 mg QHS PO ; Start 08/27/16 at 21:00 Non-Formulary Medication 30 unit BIDWMEALS SQ ; Start 08/27/16 at 17:00; Status UNV Albuterol Sulfate (Ventolin Neb Soln) 2.5 mg RTQID NEB ; Start 08/27/16 at 16:00 Active Scripts Active Reported Gabapentin 100 Mg Capsule 100 Mg PO BID Ranexa (Ranolazine) 500 Mg Tab.er.12h 1 Tab PO DAILY Phoslo (Calcium Acetate) 667 Mg Capsule 667 Mg PO TIDWMEALS Polyethylene Glycol 3350 255 Gm Powder 17 Gm PO DAILY PRN Anoro Ellipta 62.5-25 Mcg Inh (Umeclidinium Brm/Vilanterol Tr) 1 Each Disk.w.dev 1 Each IH DAILY Clopidogrel (Clopidogrel Bisulfate) 75 Mg Tablet 1 Tab PO DAILY Percocet 7.5-325 Mg Tablet (Oxycodone/Acetaminophen) 1 Each Tablet 1 Tab PO TID PRN Dialyvite 800 Tablet (Folic Acid/Vitamin B Comp W-C) 0.8 Mg Tablet 0.8 Mg PO DAILY NITROGLYCERIN SubLingual (Nitroglycerin) 0.4 Mg Tab.subl 0.4 Mg SL PRN Humulin 70-30 Vial (Hum Insulin Nph/Reg Insulin Hm) 100 Unit/1 Ml Vial 30 Unit SQ BIDWMEALS Allopurinol 300 Mg Tablet 300 Mg PO DAILY Pepcid (Famotidine) 20 Mg Tablet 20 Mg PO QHS Lanoxin (Digoxin) 125 Mcg Tablet 125 Mcg PO DAILY Flomax (Tamsulosin Hcl) 0.4 Mg Cap.er.24h 0.4 Mg PO HS Aspirin 81 Mg Tab.chew 81 Mg PO DAILY Vitals/I & O Vital Sign - Last 24 Hours 08/26/16 08/26/16 08/26/16 08/26/16 17:00 17:20 17:57 19:25 Temp 98.6 97.9 98.6 97.9 Pulse 72 73 Resp 16 16 B/P 133/52 113/57 Pulse Ox 98 97 O2 Delivery Nasal Cannula Nasal Cannula Nasal Cannula Nasal Cannula O2 Flow Rate 2.0 4.0 4.0 2.0 08/26/16 08/26/16 08/26/16 08/27/16 20:20 21:35 23:40 03:40 Temp 98.4 98.1 98.4 98.1 Pulse 66 76 Resp 16 14 B/P 116/53 122/65 Pulse Ox 100 100 O2 Delivery Nasal Cannula Nasal Cannula Nasal Cannula Nasal Cannula O2 Flow Rate 4.0 4.0 2.0 2.0 08/27/16 08/27/16 08/27/16 08/27/16 07:00 07:40 08:33 11:00 Temp 98.2 98.1 98.2 98.1 Pulse 77 58 Resp 18 16 B/P 117/60 123/58 Pulse Ox 99 97 O2 Delivery Nasal Cannula Nasal Cannula Nasal Cannula Nasal Cannula O2 Flow Rate 2.0 2.0 2.0 2.0 08/27/16 08/27/16 08/27/16 13:14 14:15 15:00 Temp 97.4 97.4 Pulse 69 Resp 16 B/P 135/61 Pulse Ox 94 O2 Delivery Nasal Cannula Nasal Cannula Nasal Cannula O2 Flow Rate 2.0 2.0 2.0 Intake and Output 08/26/16 08/26/16 08/27/16 15:00 23:00 07:00 Intake Total 240 ml 410 ml Output Total 10 ml 6 ml Balance 230 ml 404 ml LEXI ALTAMIRANO MD Aug 27, 2016 15:40
[2016-08-27] MEDS: ALBUTEROL SULFATE 2.5 MG/3 ML NEBU. NEB SCH ×2 (16:00→20:22)
[2016-08-27] MEDS: CALCIUM ACETATE 667 MG CAPSULE PO SCH (16:06)
[2016-08-27] MEDS: ALLOPURINOL 300 MG TABLET. PO SCH (16:06)
[2016-08-27] MEDS: ASPIRIN 81 MG TAB.CHEW PO SCH (16:06)
[2016-08-27] MEDS: DIGOXIN 125 MCG TABLET PO SCH (16:48)
[2016-08-27] MEDS: FOLIC/VIT B COMP W-C (RENAL) TABLET. PO SCH (16:48)
[2016-08-27] MEDS: RANOLAZINE 500 MG TAB.ER.12H PO SCH (16:49)
[2016-08-27] MEDS: INSULIN DETEMIR 300 UNITS/3 ML INSULN.PEN. SQ SCH (17:34)
[2016-08-27 19:00] VITALS: BP 108/52
[2016-08-27] MEDS: BUDESONIDE 0.5 MG/2 ML NEBU NEB SCH (20:22)
[2016-08-27] MEDS: GABAPENTIN 100 MG CAPSULE. PO SCH (21:56)
[2016-08-27] MEDS: TAMSULOSIN 0.4 MG CAP.ER.24H. PO SCH (21:56)
[2016-08-27 23:00] VITALS: BP 129/58
[2016-08-28 03:00] VITALS: BP 120/60
[2016-08-28] MEDS: HEPARIN PF for SUB-Q USE 5,000 UNIT/0.5 ML VIAL. SQ SCH ×3 (06:16→21:18)
[2016-08-28 07:00] VITALS: BP 112/45
[2016-08-28] MEDS ORDERED: IV NORMAL SALINE 1000ML BAG 1,000 ML IV PRN ×2 (07:46)
[2016-08-28] MEDS ORDERED: ALBUMIN HUMAN 25% 200 ML IV PRN (08:00)
[2016-08-28] MEDS: ALBUTEROL SULFATE 2.5 MG/3 ML NEBU. NEB SCH ×4 (08:00→20:09)
[2016-08-28] MEDS ORDERED: DIALYSIS PATIENT. MC PRN ×2 (08:00)
[2016-08-28] MEDS ORDERED: DIPHENHYDRAMINE 50 MG/ML VIAL IV PRN (08:00)
[2016-08-28] MEDS ORDERED: LIDOCAINE 1% PF 2 ML VIAL. INJ ONE (08:00)
[2016-08-28] MEDS: INSULIN DETEMIR 300 UNITS/3 ML INSULN.PEN. SQ SCH ×2 (08:00→16:33)
[2016-08-28] MEDS: CALCIUM ACETATE 667 MG CAPSULE PO SCH ×3 (08:00→16:27)
[2016-08-28] MEDS: BUDESONIDE 0.5 MG/2 ML NEBU NEB SCH ×2 (08:00→20:09)
[2016-08-28 08:45] LABS: ALBUMIN 2.5 g/dL (3.4-5.0); CREATININE 7.5 mg/dL (0.7-1.3); GFR 7.3; POTASSIUM 3.9 mmol/L (3.5-5.1)
[2016-08-28 08:59] LABS: HEMATOCRIT 32.2 % (39.0-53.0); HEMOGLOBIN 10.7 g/dL (13.0-17.5); RED BLOOD COUNT 3.28 x10^6/uL (4.30-5.70); RED CELL DISTRIBUTION WIDTH 14.5 % (11.5-14.5); WHITE BLOOD COUNT 7.8 x10^3/uL (4.0-11.0)
[2016-08-28] MEDS: ALLOPURINOL 300 MG TABLET. PO SCH (09:00)
[2016-08-28] MEDS ORDERED: POLYETHYLENE GLYCOL 3350 17 GM PACKET. PO PRN (09:00)
--- NOTE | 2016-08-28 09:01 | PDOC ---
Provider Note Provider Note [id number] SANDEEP YANG MD Aug 28, 2016 09:01
--- NOTE | 2016-08-28 09:14 | PDOC ---
Dialysis Progress Note Dialysis Note Dialysis Note Seen on Hemodialysis, tolerating treatment Okay for now Vitals on Hemodialysis: 118/61 78 afeb General Appearance: Awake: Alert Oriented x 2-3 Neck: No JVD or JVP Chest: CTA Enmanuel Heart: S1 S2 Abdomen - Soft NTND Extremities - No Edema ESRD: Dialysis as below F 180 NR 3.5 Hrs 3 K 2.5 Ca 140 Na 30 HC03 Qb 350 + Qd 500+ Heparin 0 Units Uf 3.0 Kgs or to dry weight as tolerated May give 25-50 gms of 25% Albumin if needed to maintain Hemodynamic stability Treatment plan reviewed and discussed with hotel front office manager Vitals Vital Signs Vital Signs Date Time Temp Pulse Resp B/P Pulse Ox O2 Delivery O2 Flow Rate FiO2 08/28/16 07:00 97.5 63 18 112/45 100 Nasal Cannula 3.0 97.5 Labs Last Labs Laboratory Tests Test 08/26/16 09:40 08/26/16 20:49 08/27/16 07:25 08/27/16 08:49 Potassium Level 6.9mmol/L (3.5-5.1) 4.1mmol/L (3.5-5.1) Glucose (Fingerstick) 161mg/dL (70-99) 188mg/dL (70-99) Sodium Level 140mmol/L (136-145) Chloride Level 99mmol/L (98-107) Carbon Dioxide Level 32mmol/L (21-32) Anion Gap 9 (6-14) Blood Urea Nitrogen 36mg/dL (8-26) Creatinine 6.0mg/dL (0.7-1.3) Estimated GFR (Cockcroft-Gault) 9.4 Glucose Level 153mg/dL (70-99) Calcium Level 7.9mg/dL (8.5-10.1) Phosphorus Level 4.8mg/dL (2.6-4.7) Magnesium Level 2.0mg/dL (1.8-2.4) Albumin 2.5g/dL (3.4-5.0) Test 08/27/16 11:12 08/27/16 17:18 08/27/16 20:32 08/28/16 07:25 Glucose (Fingerstick) 204mg/dL (70-99) 151mg/dL (70-99) 172mg/dL (70-99) White Blood Count 7.8x10^3/uL (4.0-11.0) Red Blood Count 3.28x10^6/uL (4.30-5.70) Hemoglobin 10.7g/dL (13.0-17.5) Hematocrit 32.2% (39.0-53.0) Mean Corpuscular Volume 98fL (79-100) Mean Corpuscular Hemoglobin 33pg (25-35) Mean Corpuscular Hemoglobin Concent 33g/dL (31-37) Red Cell Distribution Width 14.5% (11.5-14.5) Platelet Count 111x10^3/uL (140-400) Sodium Level 141mmol/L (136-145) Potassium Level 3.9mmol/L (3.5-5.1) Chloride Level 99mmol/L (98-107) Carbon Dioxide Level 31mmol/L (21-32) Anion Gap 11 (6-14) Blood Urea Nitrogen 45mg/dL (8-26) Creatinine 7.5mg/dL (0.7-1.3) Estimated GFR (Cockcroft-Gault) 7.3 Glucose Level 53mg/dL (70-99) Calcium Level 8.0mg/dL (8.5-10.1) Phosphorus Level 6.0mg/dL (2.6-4.7) Magnesium Level 2.2mg/dL (1.8-2.4) Albumin 2.5g/dL (3.4-5.0) Test 08/28/16 07:46 Glucose (Fingerstick) 48mg/dL (70-99) Laboratory Tests Test 08/27/16 11:12 08/27/16 17:18 08/27/16 20:32 08/28/16 07:25 Glucose (Fingerstick) 204mg/dL (70-99) 151mg/dL (70-99) 172mg/dL (70-99) White Blood Count 7.8x10^3/uL (4.0-11.0) Red Blood Count 3.28x10^6/uL (4.30-5.70) Hemoglobin 10.7g/dL (13.0-17.5) Hematocrit 32.2% (39.0-53.0) Mean Corpuscular Volume 98fL (79-100) Mean Corpuscular Hemoglobin 33pg (25-35) Mean Corpuscular Hemoglobin Concent 33g/dL (31-37) Red Cell Distribution Width 14.5% (11.5-14.5) Platelet Count 111x10^3/uL (140-400) Sodium Level 141mmol/L (136-145) Potassium Level 3.9mmol/L (3.5-5.1) Chloride Level 99mmol/L (98-107) Carbon Dioxide Level 31mmol/L (21-32) Anion Gap 11 (6-14) Blood Urea Nitrogen 45mg/dL (8-26) Creatinine 7.5mg/dL (0.7-1.3) Estimated GFR (Cockcroft-Gault) 7.3 Glucose Level 53mg/dL (70-99) Calcium Level 8.0mg/dL (8.5-10.1) Phosphorus Level 6.0mg/dL (2.6-4.7) Magnesium Level 2.2mg/dL (1.8-2.4) Albumin 2.5g/dL (3.4-5.0) Test 08/28/16 07:46 Glucose (Fingerstick) 48mg/dL (70-99) Assessment Assessment Problems Medical Problems: (1) Retroperitoneal mass Status: Acute Problems: Plan Plan of Care Problems Medical Problems: (1) Retroperitoneal mass Status: Acute RIVKA PIEDRA MD Aug 28, 2016 09:14
--- NOTE | 2016-08-28 09:28 | PDOC ---
SURGICAL PROGRESS NOTE Subjective Pt seen on dialysis, low blood sugar this AM, incisional pain Vital Signs Vital Signs Date Time Temp Pulse Resp B/P Pulse Ox O2 Delivery O2 Flow Rate FiO2 08/28/16 07:00 97.5 63 18 112/45 100 Nasal Cannula 3.0 97.5 I&O Intake and Output 08/28/16 07:00 Intake Total 800 ml Output Total 1 ml Balance 799 ml Intake Oral 800 ml Output Urine Total 0 ml Stool Total 1 ml General: Alert, Oriented X3, Cooperative, mild distress Abdomen: Soft, Other (mild TTP) Labs Laboratory Tests Test 08/26/16 09:40 08/26/16 20:49 08/27/16 07:25 08/27/16 08:49 Potassium Level 6.9mmol/L (3.5-5.1) 4.1mmol/L (3.5-5.1) Glucose (Fingerstick) 161mg/dL (70-99) 188mg/dL (70-99) Sodium Level 140mmol/L (136-145) Chloride Level 99mmol/L (98-107) Carbon Dioxide Level 32mmol/L (21-32) Anion Gap 9 (6-14) Blood Urea Nitrogen 36mg/dL (8-26) Creatinine 6.0mg/dL (0.7-1.3) Estimated GFR (Cockcroft-Gault) 9.4 Glucose Level 153mg/dL (70-99) Calcium Level 7.9mg/dL (8.5-10.1) Phosphorus Level 4.8mg/dL (2.6-4.7) Magnesium Level 2.0mg/dL (1.8-2.4) Albumin 2.5g/dL (3.4-5.0) Test 08/27/16 11:12 08/27/16 17:18 08/27/16 20:32 08/28/16 07:25 Glucose (Fingerstick) 204mg/dL (70-99) 151mg/dL (70-99) 172mg/dL (70-99) White Blood Count 7.8x10^3/uL (4.0-11.0) Red Blood Count 3.28x10^6/uL (4.30-5.70) Hemoglobin 10.7g/dL (13.0-17.5) Hematocrit 32.2% (39.0-53.0) Mean Corpuscular Volume 98fL (79-100) Mean Corpuscular Hemoglobin 33pg (25-35) Mean Corpuscular Hemoglobin Concent 33g/dL (31-37) Red Cell Distribution Width 14.5% (11.5-14.5) Platelet Count 111x10^3/uL (140-400) Sodium Level 141mmol/L (136-145) Potassium Level 3.9mmol/L (3.5-5.1) Chloride Level 99mmol/L (98-107) Carbon Dioxide Level 31mmol/L (21-32) Anion Gap 11 (6-14) Blood Urea Nitrogen 45mg/dL (8-26) Creatinine 7.5mg/dL (0.7-1.3) Estimated GFR (Cockcroft-Gault) 7.3 Glucose Level 53mg/dL (70-99) Calcium Level 8.0mg/dL (8.5-10.1) Phosphorus Level 6.0mg/dL (2.6-4.7) Magnesium Level 2.2mg/dL (1.8-2.4) Albumin 2.5g/dL (3.4-5.0) Test 08/28/16 07:46 Glucose (Fingerstick) 48mg/dL (70-99) Laboratory Tests Test 08/27/16 11:12 08/27/16 17:18 08/27/16 20:32 08/28/16 07:25 Glucose (Fingerstick) 204mg/dL (70-99) 151mg/dL (70-99) 172mg/dL (70-99) White Blood Count 7.8x10^3/uL (4.0-11.0) Red Blood Count 3.28x10^6/uL (4.30-5.70) Hemoglobin 10.7g/dL (13.0-17.5) Hematocrit 32.2% (39.0-53.0) Mean Corpuscular Volume 98fL (79-100) Mean Corpuscular Hemoglobin 33pg (25-35) Mean Corpuscular Hemoglobin Concent 33g/dL (31-37) Red Cell Distribution Width 14.5% (11.5-14.5) Platelet Count 111x10^3/uL (140-400) Sodium Level 141mmol/L (136-145) Potassium Level 3.9mmol/L (3.5-5.1) Chloride Level 99mmol/L (98-107) Carbon Dioxide Level 31mmol/L (21-32) Anion Gap 11 (6-14) Blood Urea Nitrogen 45mg/dL (8-26) Creatinine 7.5mg/dL (0.7-1.3) Estimated GFR (Cockcroft-Gault) 7.3 Glucose Level 53mg/dL (70-99) Calcium Level 8.0mg/dL (8.5-10.1) Phosphorus Level 6.0mg/dL (2.6-4.7) Magnesium Level 2.2mg/dL (1.8-2.4) Albumin 2.5g/dL (3.4-5.0) Test 08/28/16 07:46 Glucose (Fingerstick) 48mg/dL (70-99) Problem List Problems Medical Problems: (1) Retroperitoneal mass Status: Acute Assessment/Plan s/p nephrectomy OOB ADAT appreciate consultants care plan d/c when medically stable Problems: BEATA HARDY MD Aug 28, 2016 09:28
[2016-08-28] MEDS ORDERED: DEXTROSE 50% 25 GM / 50ML DISP.SYRIN. IV PRN (11:30)
[2016-08-28] MEDS: ONDANSETRON PF 4 MG/2 ML VIAL. IV PRN (12:37)
[2016-08-28] MEDS: DOCUSATE SODIUM 100 MG CAPSULE PO SCH ×2 (12:38→21:11)
[2016-08-28] MEDS: GABAPENTIN 100 MG CAPSULE. PO SCH ×2 (12:39→21:11)
[2016-08-28] MEDS: DIGOXIN 125 MCG TABLET PO SCH (12:39)
[2016-08-28] MEDS: RANOLAZINE 500 MG TAB.ER.12H PO SCH (12:39)
[2016-08-28] MEDS: ASPIRIN 81 MG TAB.CHEW PO SCH (12:39)
[2016-08-28] MEDS: HYDROCODONE/APAP 5/325MG TABLET. PO PRN (12:40)
[2016-08-28] MEDS: FOLIC/VIT B COMP W-C (RENAL) TABLET. PO SCH (12:41)
--- NOTE | 2016-08-28 14:38 | PDOC ---
PROGRESS NOTES Subjective Subjective No new cardiac complaints today. Has been using incentive spirometer frequently. Notes more incisional pain today. Objective Objective Vital Signs Date Time Temp Pulse Resp B/P Pulse Ox O2 Delivery O2 Flow Rate FiO2 08/28/16 12:40 Nasal Cannula 4.0 08/28/16 12:39 76 109/51 08/28/16 07:00 97.5 18 100 97.5 Intake and Output 08/28/16 07:00 Intake Total 800 ml Output Total 1 ml Balance 799 ml Intake Oral 800 ml Output Urine Total 0 ml Stool Total 1 ml Physical Exam Physical Exam No significant changes in cardiac exam. Improved air movement to lung bases noted. Assessment Assessment Problems Medical Problems: (1) Retroperitoneal mass Status: Acute Plan Plan of Care Patient stable from a cardiac standpoint. Encouraged use of incentive spirometer to prevent pneumonia. Continue with current plan. Comment Review of Relevant I have reviewed the following items nicole (where applicable) has been applied. Labs Laboratory Tests Test 08/26/16 20:49 08/27/16 07:25 08/27/16 08:49 08/27/16 11:12 Glucose (Fingerstick) 161mg/dL (70-99) 188mg/dL (70-99) 204mg/dL (70-99) Sodium Level 140mmol/L (136-145) Potassium Level 4.1mmol/L (3.5-5.1) Chloride Level 99mmol/L (98-107) Carbon Dioxide Level 32mmol/L (21-32) Anion Gap 9 (6-14) Blood Urea Nitrogen 36mg/dL (8-26) Creatinine 6.0mg/dL (0.7-1.3) Estimated GFR (Cockcroft-Gault) 9.4 Glucose Level 153mg/dL (70-99) Calcium Level 7.9mg/dL (8.5-10.1) Phosphorus Level 4.8mg/dL (2.6-4.7) Magnesium Level 2.0mg/dL (1.8-2.4) Albumin 2.5g/dL (3.4-5.0) Test 08/27/16 17:18 08/27/16 20:32 08/28/16 07:25 08/28/16 07:46 Glucose (Fingerstick) 151mg/dL (70-99) 172mg/dL (70-99) 48mg/dL (70-99) White Blood Count 7.8x10^3/uL (4.0-11.0) Red Blood Count 3.28x10^6/uL (4.30-5.70) Hemoglobin 10.7g/dL (13.0-17.5) Hematocrit 32.2% (39.0-53.0) Mean Corpuscular Volume 98fL (79-100) Mean Corpuscular Hemoglobin 33pg (25-35) Mean Corpuscular Hemoglobin Concent 33g/dL (31-37) Red Cell Distribution Width 14.5% (11.5-14.5) Platelet Count 111x10^3/uL (140-400) Sodium Level 141mmol/L (136-145) Potassium Level 3.9mmol/L (3.5-5.1) Chloride Level 99mmol/L (98-107) Carbon Dioxide Level 31mmol/L (21-32) Anion Gap 11 (6-14) Blood Urea Nitrogen 45mg/dL (8-26) Creatinine 7.5mg/dL (0.7-1.3) Estimated GFR (Cockcroft-Gault) 7.3 Glucose Level 53mg/dL (70-99) Calcium Level 8.0mg/dL (8.5-10.1) Phosphorus Level 6.0mg/dL (2.6-4.7) Magnesium Level 2.2mg/dL (1.8-2.4) Albumin 2.5g/dL (3.4-5.0) Test 08/28/16 12:42 Glucose (Fingerstick) 95mg/dL (70-99) Laboratory Tests Test 08/27/16 17:18 08/27/16 20:32 08/28/16 07:25 08/28/16 07:46 Glucose (Fingerstick) 151mg/dL (70-99) 172mg/dL (70-99) 48mg/dL (70-99) White Blood Count 7.8x10^3/uL (4.0-11.0) Red Blood Count 3.28x10^6/uL (4.30-5.70) Hemoglobin 10.7g/dL (13.0-17.5) Hematocrit 32.2% (39.0-53.0) Mean Corpuscular Volume 98fL (79-100) Mean Corpuscular Hemoglobin 33pg (25-35) Mean Corpuscular Hemoglobin Concent 33g/dL (31-37) Red Cell Distribution Width 14.5% (11.5-14.5) Platelet Count 111x10^3/uL (140-400) Sodium Level 141mmol/L (136-145) Potassium Level 3.9mmol/L (3.5-5.1) Chloride Level 99mmol/L (98-107) Carbon Dioxide Level 31mmol/L (21-32) Anion Gap 11 (6-14) Blood Urea Nitrogen 45mg/dL (8-26) Creatinine 7.5mg/dL (0.7-1.3) Estimated GFR (Cockcroft-Gault) 7.3 Glucose Level 53mg/dL (70-99) Calcium Level 8.0mg/dL (8.5-10.1) Phosphorus Level 6.0mg/dL (2.6-4.7) Magnesium Level 2.2mg/dL (1.8-2.4) Albumin 2.5g/dL (3.4-5.0) Test 08/28/16 12:42 Glucose (Fingerstick) 95mg/dL (70-99) Medications Current Medications Ondansetron HCl (Zofran) 4 mg PRN Q6HRS PRN IV Nausea; Start 08/25/16 at 07:00 ; Stop 08/26/16 at 06:59; Status DC Fentanyl Citrate (Fentanyl 2ml Vial) 25 mcg PRN Q5MIN PRN IV MILD PAIN Last administered on 08/25/16t 17:41; Start 08/25/16 at 07:00; Stop 08/25/16 at 23:18 ; Status DC Fentanyl Citrate (Fentanyl 2ml Vial) 50 mcg PRN Q5MIN PRN IV MODERATE PAIN; Start 08/25/16 at 07:00; Stop 08/25/16 at 23:18; Status DC Morphine Sulfate 1 mg 1 mg PRN Q10MIN PRN IV SEVERE PAIN; Start 08/25/16 at 07: 00; Stop 08/25/16 at 23:18; Status DC Lactated Ringer's (Iv Lactated Ringers) 1,000 ml @ 0 mls/hr Q0M IV ; Start at 07:00; Stop 08/25/16 at 18:59; Status DC Lidocaine HCl 2 ml 1X PRN PRN ID IV START; Start 08/25/16 at 07:00; Stop at 06:59; Status DC Hydromorphone HCl (Dilaudid) 0.5 mg PRN Q10MIN PRN IV SEVERE PAIN, Second choice; Start 08/25/16 at 07:00; Stop 08/25/16 at 23:18; Status DC Prochlorperazine Edisylate 5 mg 5 mg PACU PRN PRN IV NAUSEA; Start 08/25/16 at 07:00; Stop 08/25/16 at 23:18; Status DC Cefazolin Sodium/ Dextrose 50 ml @ 100 mls/hr 1X PREOP PRN IV PRIOR TO PROCEDURE Last administered on 08/25/16 08:30; Start 08/25/16 at 06:00; Stop at 18:00; Status DC Sodium Chloride (Iv Sodium Chloride 0.9% 1000ml Bag) 1,000 ml @ 0 mls/hr 1X ONCE IV Last administered on 08/25/16 06:48; Start 08/25/16 at 06:45; Stop at 06:51; Status DC Scopolamine (Transderm-Scop) 1 patch 1X ONCE TD Last administered on 07:03; Start 08/25/16 at 07:00; Stop 08/25/16 at 07:01; Status DC Dexamethasone Sodium Phosphate (Decadron) 4 mg ONCE ONCE IV Last administered on 08/25/16 07:05; Start 08/25/16 at 07:00; Stop 08/25/16 at 07:01; Status DC Ondansetron HCl (Zofran) 4 mg 1X ONCE IV Last administered on 08/25/16 07:03 ; Start 08/25/16 at 07:00; Stop 08/25/16 at 07:01; Status DC Sevoflurane (Ultane) 60 ml STK-MED ONCE IH ; Start 08/25/16 at 07:10; Stop 08/25 at 07:11; Status DC Fentanyl Citrate 250 mcg 250 mcg STK-MED ONCE .ROUTE ; Start 08/25/16 at 07:11; Stop 08/25/16 at 07:12; Status DC Propofol (Diprivan) 20 ml @ As Directed STK-MED ONCE IV ; Start 08/25/16 at 07: 11; Stop 08/25/16 at 07:12; Status DC Lidocaine HCl 100 mg STK-MED ONCE .ROUTE ; Start 08/25/16 at 07:11; Stop at 07:12; Status DC Ondansetron HCl (Zofran) 4 mg STK-MED ONCE .ROUTE ; Start 08/25/16 at 07:11; Stop 08/25/16 at 07:12; Status DC Dexamethasone Sodium Phosphate (Decadron) 20 mg STK-MED ONCE .ROUTE ; Start at 07:11; Stop 08/25/16 at 07:12; Status DC Etomidate (Amidate) 20 mg STK-MED ONCE IV ; Start 08/25/16 at 07:11; Stop at 07:12; Status DC Rocuronium [place] (Zemuron) 50 mg STK-MED ONCE .ROUTE ; Start 08/25/16 at 07:30 ; Stop 08/25/16 at 07:31; Status DC Ketamine HCl 500 mg STK-MED ONCE .ROUTE ; Start 08/25/16 at 09:54; Stop at 09:55; Status DC Rocuronium [place] (Zemuron) 50 mg STK-MED ONCE .ROUTE ; Start 08/25/16 at 11:00 ; Stop 08/25/16 at 11:01; Status DC Cellulose 1 each STK-MED ONCE .ROUTE Last administered on 08/25/16t 11:15; Start 08/25/16 at 11:14; Stop 08/25/16 at 11:15; Status DC Glycopyrrolate (Robinul) 1 mg STK-MED ONCE .ROUTE ; Start 08/25/16 at 11:25; Stop 08/25/16 at 11:26; Status DC Neostigmine Methylsulfate 5 mg STK-MED ONCE .ROUTE ; Start 08/25/16 at 11:25; Stop 08/25/16 at 11:26; Status DC Enoxaparin Sodium (Lovenox 30mg Syringe) 30 mg QHS SQ Last administered on 08/25 21:24; Start 08/25/16 at 21:00; Stop 08/26/16 at 14:21; Status DC Sodium Chloride 3 ml 3 ml QSHIFT PRN IV AFTER MEDS AND BLOOD DRAWS; Start 08/25 at 11:30 Lactated Ringer's (Iv Lactated Ringers) 1,000 ml @ 100 mls/hr Q10H IV ; Start 08/25/16 at 11:30; Stop 08/26/16 at 09:11; Status DC Acetaminophen/ Hydrocodone Bitart (Lortab 5/325) 1 tab PRN Q4HRS PRN PO MILD PAIN Last administered on 08/28/16 12:40; Start 08/25/16 at 11:30 Hydromorphone HCl (Dilaudid) 0.2 mg PRN Q1HR PRN IV PAIN Last administered on 17:20; Start 08/25/16 at 11:30 Docusate Sodium (Colace) 100 mg BID PO Last administered on 08/28/16 12:38; Start 08/25/16 at 21:00 Ondansetron HCl (Zofran) 4 mg PRN Q6HRS PRN IV NAUESA, 1ST CHOICE Last administered on 08/28/16 12:37; Start 08/25/16 at 11:30 Insulin Human Regular 3 unit 3 unit 1X ONCE IV Last administered on 08/25/16 12:49; Start 08/25/16 at 12:45; Stop 08/25/16 at 12:46; Status DC Magnesium Sulfate/ Dextrose (Magnesium Sulfate PREMIX 2GM) 50 ml @ 25 mls/hr PRN DAILY PRN IV for Mag < 1.7 on am labs; Start 08/25/16 at 17:45 Hydralazine HCl 20 mg 20 mg PRN Q4HRS PRN IVP ELEVATED BP, SEE COMMENTS; Start 08/25/16 at 17:45 Sodium Chloride 1,000 ml @ 1,000 mls/hr Q1H PRN IV hypotension; Start 08/26/16 at 09:00; Stop 08/26/16 at 14:59; Status DC Sodium Chloride (Iv Sodium Chloride 0.9% 1000ml Bag) 1,000 ml @ 400 mls/hr Q2H30M PRN IV PATENCY; Start 08/26/16 at 09:00; Stop 08/26/16 at 20:59; Status DC Info (PHARMACY MONITORING -- do not chart) 1 each PRN DAILY PRN MC SEE COMMENTS ; Start 08/26/16 at 10:00 Heparin Sodium (Porcine) 5000 unit 5,000 unit Q8HRS SQ Last administered on 06:16; Start 08/26/16 at 22:00 Magnesium Sulfate/ Dextrose (Magnesium Sulfate PREMIX 2GM) 50 ml @ 25 mls/hr 1X ONCE IV Last administered on 08/26/16 21:34; Start 08/26/16 at 21:30; Stop 08/26/16 at 23:29; Status DC Allopurinol (Zyloprim) 300 mg DAILY PO Last administered on 08/27/16 16:06; Start 08/27/16 at 16:00; Stop 08/28/16 at 11:11; Status DC Aspirin (Children'S Aspirin) 81 mg DAILY PO Last administered on 08/28/16 12: 39; Start 08/27/16 at 16:00 Calcium Acetate (Phoslo) 667 mg TIDWMEALS PO Last administered on 08/28/16 12: 39; Start 08/27/16 at 17:00 Digoxin (Lanoxin) 125 mcg DAILY PO Last administered on 08/28/16 12:39; Start 08/27/16 at 16:00 Folic Acid/ Multivitamins/Vit B12 (Nephro-Mouna) 1 tab DAILY PO Last administered on 08/28/16 12:41; Start 08/27/16 at 16:00 Gabapentin (Neurontin) 100 mg BID PO Last administered on 08/28/16 12:39; Start 08/27/16 at 21:00 Nitroglycerin (Nitrostat) 0.4 mg PRN Q5MIN PRN SL CHEST PAIN; Start 08/27/16 at 15:30 Oxycodone/ Acetaminophen (Percocet 7.5/ 325) 1 tab PRN TID PRN PO MODERATE PAIN ; Start 08/27/16 at 15:30 Polyethylene Glycol (miraLAX PACKET) 17 gm PRN BID PRN PO CONSTIPATION; Start 08/28/16 at 09:00 Ranolazine (Ranexa) 500 mg DAILY PO Last administered on 08/28/16 12:39; Start 08/27/16 at 16:00 Tamsulosin HCl (Flomax) 0.4 mg QHS PO Last administered on 08/27/16 21:56; Start 08/27/16 at 21:00 Insulin Detemir (Levemir) 30 units BIDWMEALS SQ Last administered on 08/27/16 17:34; Start 08/27/16 at 17:00; Stop 08/28/16 at 09:01; Status DC Albuterol Sulfate (Ventolin Neb Soln) 2.5 mg RTQID NEB Last administered on 20:22; Start 08/27/16 at 16:00 Budesonide 0.5 mg 0.5 mg RTBID NEB Last administered on 08/27/16 20:22; Start 08/27/16 at 20:00 Sodium Chloride 1,000 ml @ 1,000 mls/hr Q1H PRN IV hypotension; Start 08/28/16 at 07:46; Stop 08/28/16 at 13:45; Status DC Albumin Human (Albuminar) 200 ml @ 200 mls/hr 1X PRN PRN IV Hypotension; Start 08/28/16 at 08:00; Stop 08/28/16 at 13:59; Status DC Diphenhydramine HCl 25 mg 25 mg 1X PRN PRN IV ITCHING; Start 08/28/16 at 08:00 ; Stop 08/29/16 at 07:59 Sodium Chloride (Iv Sodium Chloride 0.9% 1000ml Bag) 1,000 ml @ 400 mls/hr Q2H30M PRN IV PATENCY; Start 08/28/16 at 07:46; Stop 08/28/16 at 19:45 Info (PHARMACY MONITORING -- do not chart) 1 each PRN DAILY PRN MC SEE COMMENTS ; Start 08/28/16 at 08:00; Stop 08/28/16 at 08:00; Status DC Info (PHARMACY MONITORING -- do not chart) 1 each PRN DAILY PRN MC SEE COMMENTS ; Start 08/28/16 at 08:00; Stop 08/28/16 at 08:00; Status DC Lidocaine HCl (Xylocaine-Mpf 1% Vial) 2 ml 1X ONCE INJ Last administered on 08:51; Start 08/28/16 at 08:00; Stop 08/28/16 at 08:01; Status DC Insulin Detemir (Levemir) 20 units BIDWMEALS SQ ; Start 08/28/16 at 17:00 Allopurinol (Zyloprim) 300 mg Q48H PO ; Start 08/29/16 at 09:00 Dextrose 12.5 gm PRN Q15MIN PRN IV SEE COMMENTS; Start 08/28/16 at 11:30 Active Scripts Active Reported Gabapentin 100 Mg Capsule 100 Mg PO BID Ranexa (Ranolazine) 500 Mg Tab.er.12h 1 Tab PO DAILY Phoslo (Calcium Acetate) 667 Mg Capsule 667 Mg PO TIDWMEALS Polyethylene Glycol 3350 255 Gm Powder 17 Gm PO DAILY PRN Anoro Ellipta 62.5-25 Mcg Inh (Umeclidinium Brm/Vilanterol Tr) 1 Each Disk.w.dev 1 Each IH DAILY Clopidogrel (Clopidogrel Bisulfate) 75 Mg Tablet 1 Tab PO DAILY Percocet 7.5-325 Mg Tablet (Oxycodone/Acetaminophen) 1 Each Tablet 1 Tab PO TID PRN Dialyvite 800 Tablet (Folic Acid/Vitamin B Comp W-C) 0.8 Mg Tablet 0.8 Mg PO DAILY NITROGLYCERIN SubLingual (Nitroglycerin) 0.4 Mg Tab.subl 0.4 Mg SL PRN Humulin 70-30 Vial (Hum Insulin Nph/Reg Insulin Hm) 100 Unit/1 Ml Vial 30 Unit SQ BIDWMEALS Allopurinol 300 Mg Tablet 300 Mg PO DAILY Pepcid (Famotidine) 20 Mg Tablet 20 Mg PO QHS Lanoxin (Digoxin) 125 Mcg Tablet 125 Mcg PO DAILY Flomax (Tamsulosin Hcl) 0.4 Mg Cap.er.24h 0.4 Mg PO HS Aspirin 81 Mg Tab.chew 81 Mg PO DAILY Vitals/I & O Vital Sign - Last 24 Hours 08/27/16 08/27/16 08/27/16 08/27/16 15:00 16:48 16:49 19:00 Temp 97.4 97.4 97.4 97.4 Pulse 69 69 69 71 Resp 16 18 B/P 135/61 135/61 135/61 108/52 Pulse Ox 94 90 O2 Delivery Nasal Cannula Nasal Cannula O2 Flow Rate 2.0 3.0 08/27/16 08/27/16 08/27/1617 20:23 20:50 23:00 03:00 Temp 97.4 98.0 97.4 98.0 Pulse 61 56 Resp 16 16 B/P 129/58 120/60 Pulse Ox 98 100 100 O2 Delivery Nasal Cannula Nasal Cannula Nasal Cannula Nasal Cannula O2 Flow Rate 4.0 3.0 3.0 3.0 08/28/16 08/28/16 08/28/16 08/28/16 07:00 07:20 12:39 12:39 Temp 97.5 97.5 Pulse 63 76 76 Resp 18 B/P 112/45 109/51 109/51 Pulse Ox 100 O2 Delivery Nasal Cannula Nasal Cannula O2 Flow Rate 3.0 4.0 08/28/16 12:40 O2 Delivery Nasal Cannula O2 Flow Rate 4.0 Intake and Output 08/27/16 08/27/16 08/28/16 15:00 23:00 07:00 Intake Total 800 ml 0 ml Output Total 1 ml Balance 799 ml 0 ml LEXI ALTAMIRANO MD Aug 28, 2016 14:38
[2016-08-28 15:00] VITALS: BP 108/52
[2016-08-28 19:20] VITALS: BP 118/52
[2016-08-28] MEDS: TAMSULOSIN 0.4 MG CAP.ER.24H. PO SCH (21:11)
--- NOTE | 2016-08-28 22:03 | CONS ---
DATE OF CONSULTATION: 08/26/2016 CHIEF COMPLAINT: Postoperative care. HISTORY OF PRESENT ILLNESS: The patient came in for resection of retroperitoneal mass, found without clear etiology and also underwent a nephrectomy with pathology pending. He is on chronic dialysis, is in dialysis at this time and there is apparently no acute problems going on at present. PAST MEDICAL HISTORY: Dialysis. MULTIPLE MEDICATIONS: Insulin, control has been pretty good lately. FAMILY HISTORY: Unremarkable. REVIEW OF SYSTEMS: No other known problems. OBJECTIVE: ENT: All within normal limits. NECK: No masses, nodes or bruits. LUNGS: Clear. CARDIOVASCULAR: Regular rate. No murmur. ABDOMEN: Benign, soft and nontender with incisions noted. EXTREMITIES: Decreased pedal pulses, otherwise unremarkable. ASSESSMENT: Postoperative excision of a retroperitoneal mass, right kidney pathology report pending. He has mildly low blood sugar at this time. PLAN: We will reduce insulin and follow clinically. SANDEEP YANG MD DR: NIKOLAI/macho JOB#: [id number] / [id number]
[2016-08-28 23:36] VITALS: BP 109/46
[2016-08-29] VITALS (7 sets, daily range): BP systolic 112–136; BP diastolic 40–58
[2016-08-29] MEDS: HEPARIN PF for SUB-Q USE 5,000 UNIT/0.5 ML VIAL. SQ SCH ×3 (06:49→21:33)
[2016-08-29 07:10] LABS: ALBUMIN 2.5 g/dL (3.4-5.0); CALCIUM 8.2 mg/dL (8.5-10.1); CREATININE 5.3 mg/dL (0.7-1.3); GFR 10.9; POTASSIUM 4.3 mmol/L (3.5-5.1)
[2016-08-29 07:11] LABS: PHOSPHORUS 4.8 mg/dL (2.6-4.7)
[2016-08-29] MEDS: HYDROCODONE/APAP 5/325MG TABLET. PO PRN ×2 (08:57→13:26)
[2016-08-29] MEDS: RANOLAZINE 500 MG TAB.ER.12H PO SCH (08:58)
[2016-08-29] MEDS: ASPIRIN 81 MG TAB.CHEW PO SCH (08:58)
[2016-08-29] MEDS: DIGOXIN 125 MCG TABLET PO SCH (08:58)
[2016-08-29] MEDS: CALCIUM ACETATE 667 MG CAPSULE PO SCH ×3 (08:58→17:23)
[2016-08-29] MEDS: FOLIC/VIT B COMP W-C (RENAL) TABLET. PO SCH (08:59)
[2016-08-29] MEDS: DOCUSATE SODIUM 100 MG CAPSULE PO SCH ×2 (08:59→21:27)
[2016-08-29] MEDS: GABAPENTIN 100 MG CAPSULE. PO SCH ×2 (08:59→21:27)
[2016-08-29] MEDS: ALLOPURINOL 300 MG TABLET. PO SCH (08:59)
[2016-08-29] MEDS: INSULIN DETEMIR 300 UNITS/3 ML INSULN.PEN. SQ SCH ×2 (09:02→17:26)
[2016-08-29] MEDS: ALBUTEROL SULFATE 2.5 MG/3 ML NEBU. NEB SCH ×4 (09:30→20:03)
--- NOTE | 2016-08-29 10:46 | PDOC ---
LESLEE CENTENO PULMONOLOGY PHYSICIAN 08/29/16 1046: SURGICAL PROGRESS NOTE Subjective tolerating diet pain managed had a BM today Vital Signs Vital Signs Date Time Temp Pulse Resp B/P Pulse Ox O2 Delivery O2 Flow Rate FiO2 08/29/16 08:58 60 116/52 08/29/16 08:57 Nasal Cannula 08/29/16 08:20 97.9 18 100 4.0 97.9 I&O Intake and Output 08/29/16 07:00 Intake Total 100 ml Output Total 0 ml Balance 100 ml Intake Oral 100 ml Output Urine Total 0 ml # Voids 1 General: Alert, Oriented X3, Cooperative, No acute distress Abdomen: Soft, Other (dresing dry) Labs Laboratory Tests Test 08/27/16 11:12 08/27/16 17:18 08/27/16 20:32 08/28/16 07:25 Glucose (Fingerstick) 204mg/dL (70-99) 151mg/dL (70-99) 172mg/dL (70-99) White Blood Count 7.8x10^3/uL (4.0-11.0) Red Blood Count 3.28x10^6/uL (4.30-5.70) Hemoglobin 10.7g/dL (13.0-17.5) Hematocrit 32.2% (39.0-53.0) Mean Corpuscular Volume 98fL (79-100) Mean Corpuscular Hemoglobin 33pg (25-35) Mean Corpuscular Hemoglobin Concent 33g/dL (31-37) Red Cell Distribution Width 14.5% (11.5-14.5) Platelet Count 111x10^3/uL (140-400) Sodium Level 141mmol/L (136-145) Potassium Level 3.9mmol/L (3.5-5.1) Chloride Level 99mmol/L (98-107) Carbon Dioxide Level 31mmol/L (21-32) Anion Gap 11 (6-14) Blood Urea Nitrogen 45mg/dL (8-26) Creatinine 7.5mg/dL (0.7-1.3) Estimated GFR (Cockcroft-Gault) 7.3 Glucose Level 53mg/dL (70-99) Calcium Level 8.0mg/dL (8.5-10.1) Phosphorus Level 6.0mg/dL (2.6-4.7) Magnesium Level 2.2mg/dL (1.8-2.4) Albumin 2.5g/dL (3.4-5.0) Test 08/28/16 07:46 08/28/16 08:59 08/28/16 12:42 08/28/16 15:55 Glucose (Fingerstick) 48mg/dL (70-99) 107mg/dL (70-99) 95mg/dL (70-99) 199mg/dL (70-99) Test 08/28/16 20:47 08/29/16 06:30 08/29/16 07:44 Glucose (Fingerstick) 238mg/dL (70-99) 93mg/dL (70-99) Sodium Level 142mmol/L (136-145) Potassium Level 4.3mmol/L (3.5-5.1) Chloride Level 104mmol/L (98-107) Carbon Dioxide Level 30mmol/L (21-32) Anion Gap 8 (6-14) Blood Urea Nitrogen 30mg/dL (8-26) Creatinine 5.3mg/dL (0.7-1.3) Estimated GFR (Cockcroft-Gault) 10.9 Glucose Level 103mg/dL (70-99) Calcium Level 8.2mg/dL (8.5-10.1) Phosphorus Level 4.8mg/dL (2.6-4.7) Magnesium Level 2.0mg/dL (1.8-2.4) Albumin 2.5g/dL (3.4-5.0) Laboratory Tests Test 08/28/16 12:42 08/28/16 15:55 08/28/16 20:47 08/29/16 06:30 Glucose (Fingerstick) 95mg/dL (70-99) 199mg/dL (70-99) 238mg/dL (70-99) Sodium Level 142mmol/L (136-145) Potassium Level 4.3mmol/L (3.5-5.1) Chloride Level 104mmol/L (98-107) Carbon Dioxide Level 30mmol/L (21-32) Anion Gap 8 (6-14) Blood Urea Nitrogen 30mg/dL (8-26) Creatinine 5.3mg/dL (0.7-1.3) Estimated GFR (Cockcroft-Gault) 10.9 Glucose Level 103mg/dL (70-99) Calcium Level 8.2mg/dL (8.5-10.1) Phosphorus Level 4.8mg/dL (2.6-4.7) Magnesium Level 2.0mg/dL (1.8-2.4) Albumin 2.5g/dL (3.4-5.0) Test 08/29/16 07:44 Glucose (Fingerstick) 93mg/dL (70-99) Problem List Problems Medical Problems: (1) Retroperitoneal mass Status: Acute Assessment/Plan s/p nephrectomy stable Problems: YOVANA PLAZA MD 08/30/16 1047: SURGICAL PROGRESS NOTE Assessment/Plan Agree with above Problems: LESLEE CENTENO APRN Aug 29, 2016 10:46 YOVANA PLAZA MD Aug 30, 2016 10:47
[2016-08-29] MEDS: BUDESONIDE 0.5 MG/2 ML NEBU NEB SCH ×2 (11:12→20:03)
[2016-08-29] MEDS ORDERED: INSULIN DETEMIR 300 UNITS/3 ML INSULN.PEN. SQ ONE (12:15)
--- NOTE | 2016-08-29 12:16 | PDOC ---
Provider Note Provider Note takes 60 u/ d insulin at home, has lost wt and some lows lately- will reduce to 16 bid and follow- path pending SANDEEP YANG MD Aug 29, 2016 12:16
--- NOTE | 2016-08-29 13:44 | PDOC ---
PROGRESS NOTES Subjective Subjective Patient feels better. He is eating and has been ambulating. Objective Objective Vital Signs Date Time Temp Pulse Resp B/P Pulse Ox O2 Delivery O2 Flow Rate FiO2 08/29/16 13:26 Nasal Cannula 4.0 08/29/16 11:14 100 08/29/16 08:58 60 116/52 08/29/16 08:20 97.9 18 97.9 Intake and Output 08/29/16 07:00 Intake Total 100 ml Output Total 0 ml Balance 100 ml Intake Oral 100 ml Output Urine Total 0 ml # Voids 1 Physical Exam Physical Exam No significant changes in cardiac exam Assessment Assessment Patient is stable cardiac-pena. I agree with present plan. Problems Medical Problems: (1) Retroperitoneal mass Status: Acute Comment Review of Relevant I have reviewed the following items nicole (where applicable) has been applied. Labs Laboratory Tests Test 08/27/16 17:18 08/27/16 20:32 08/28/16 07:25 08/28/16 07:46 Glucose (Fingerstick) 151mg/dL (70-99) 172mg/dL (70-99) 48mg/dL (70-99) White Blood Count 7.8x10^3/uL (4.0-11.0) Red Blood Count 3.28x10^6/uL (4.30-5.70) Hemoglobin 10.7g/dL (13.0-17.5) Hematocrit 32.2% (39.0-53.0) Mean Corpuscular Volume 98fL (79-100) Mean Corpuscular Hemoglobin 33pg (25-35) Mean Corpuscular Hemoglobin Concent 33g/dL (31-37) Red Cell Distribution Width 14.5% (11.5-14.5) Platelet Count 111x10^3/uL (140-400) Sodium Level 141mmol/L (136-145) Potassium Level 3.9mmol/L (3.5-5.1) Chloride Level 99mmol/L (98-107) Carbon Dioxide Level 31mmol/L (21-32) Anion Gap 11 (6-14) Blood Urea Nitrogen 45mg/dL (8-26) Creatinine 7.5mg/dL (0.7-1.3) Estimated GFR (Cockcroft-Gault) 7.3 Glucose Level 53mg/dL (70-99) Calcium Level 8.0mg/dL (8.5-10.1) Phosphorus Level 6.0mg/dL (2.6-4.7) Magnesium Level 2.2mg/dL (1.8-2.4) Albumin 2.5g/dL (3.4-5.0) Test 08/28/16 08:59 08/28/16 12:42 08/28/16 15:55 08/28/16 20:47 Glucose (Fingerstick) 107mg/dL (70-99) 95mg/dL (70-99) 199mg/dL (70-99) 238mg/dL (70-99) Test 08/29/16 06:30 08/29/16 07:44 08/29/16 11:39 Sodium Level 142mmol/L (136-145) Potassium Level 4.3mmol/L (3.5-5.1) Chloride Level 104mmol/L (98-107) Carbon Dioxide Level 30mmol/L (21-32) Anion Gap 8 (6-14) Blood Urea Nitrogen 30mg/dL (8-26) Creatinine 5.3mg/dL (0.7-1.3) Estimated GFR (Cockcroft-Gault) 10.9 Glucose Level 103mg/dL (70-99) Calcium Level 8.2mg/dL (8.5-10.1) Phosphorus Level 4.8mg/dL (2.6-4.7) Magnesium Level 2.0mg/dL (1.8-2.4) Albumin 2.5g/dL (3.4-5.0) Glucose (Fingerstick) 93mg/dL (70-99) 224mg/dL (70-99) Laboratory Tests Test 08/28/16 15:55 08/28/16 20:47 08/29/16 06:30 08/29/16 07:44 Glucose (Fingerstick) 199mg/dL (70-99) 238mg/dL (70-99) 93mg/dL (70-99) Sodium Level 142mmol/L (136-145) Potassium Level 4.3mmol/L (3.5-5.1) Chloride Level 104mmol/L (98-107) Carbon Dioxide Level 30mmol/L (21-32) Anion Gap 8 (6-14) Blood Urea Nitrogen 30mg/dL (8-26) Creatinine 5.3mg/dL (0.7-1.3) Estimated GFR (Cockcroft-Gault) 10.9 Glucose Level 103mg/dL (70-99) Calcium Level 8.2mg/dL (8.5-10.1) Phosphorus Level 4.8mg/dL (2.6-4.7) Magnesium Level 2.0mg/dL (1.8-2.4) Albumin 2.5g/dL (3.4-5.0) Test 08/29/16 11:39 Glucose (Fingerstick) 224mg/dL (70-99) Medications Current Medications Ondansetron HCl (Zofran) 4 mg PRN Q6HRS PRN IV Nausea; Start 08/25/16 at 07:00 ; Stop 08/26/16 at 06:59; Status DC Fentanyl Citrate (Fentanyl 2ml Vial) 25 mcg PRN Q5MIN PRN IV MILD PAIN Last administered on 08/25/16t 17:41; Start 08/25/16 at 07:00; Stop 08/25/16 at 23:18 ; Status DC Fentanyl Citrate (Fentanyl 2ml Vial) 50 mcg PRN Q5MIN PRN IV MODERATE PAIN; Start 08/25/16 at 07:00; Stop 08/25/16 at 23:18; Status DC Morphine Sulfate 1 mg 1 mg PRN Q10MIN PRN IV SEVERE PAIN; Start 08/25/16 at 07: 00; Stop 08/25/16 at 23:18; Status DC Lactated Ringer's (Iv Lactated Ringers) 1,000 ml @ 0 mls/hr Q0M IV ; Start at 07:00; Stop 08/25/16 at 18:59; Status DC Lidocaine HCl 2 ml 1X PRN PRN ID IV START; Start 08/25/16 at 07:00; Stop at 06:59; Status DC Hydromorphone HCl (Dilaudid) 0.5 mg PRN Q10MIN PRN IV SEVERE PAIN, Second choice; Start 08/25/16 at 07:00; Stop 08/25/16 at 23:18; Status DC Prochlorperazine Edisylate 5 mg 5 mg PACU PRN PRN IV NAUSEA; Start 08/25/16 at 07:00; Stop 08/25/16 at 23:18; Status DC Cefazolin Sodium/ Dextrose 50 ml @ 100 mls/hr 1X PREOP PRN IV PRIOR TO PROCEDURE Last administered on 08/25/16 08:30; Start 08/25/16 at 06:00; Stop at 18:00; Status DC Sodium Chloride (Iv Sodium Chloride 0.9% 1000ml Bag) 1,000 ml @ 0 mls/hr 1X ONCE IV Last administered on 08/25/16 06:48; Start 08/25/16 at 06:45; Stop at 06:51; Status DC Scopolamine (Transderm-Scop) 1 patch 1X ONCE TD Last administered on 07:03; Start 08/25/16 at 07:00; Stop 08/25/16 at 07:01; Status DC Dexamethasone Sodium Phosphate (Decadron) 4 mg ONCE ONCE IV Last administered on 08/25/16 07:05; Start 08/25/16 at 07:00; Stop 08/25/16 at 07:01; Status DC Ondansetron HCl (Zofran) 4 mg 1X ONCE IV Last administered on 08/25/16 07:03 ; Start 08/25/16 at 07:00; Stop 08/25/16 at 07:01; Status DC Sevoflurane (Ultane) 60 ml STK-MED ONCE IH ; Start 08/25/16 at 07:10; Stop 08/25 at 07:11; Status DC Fentanyl Citrate 250 mcg 250 mcg STK-MED ONCE .ROUTE ; Start 08/25/16 at 07:11; Stop 08/25/16 at 07:12; Status DC Propofol (Diprivan) 20 ml @ As Directed STK-MED ONCE IV ; Start 08/25/16 at 07: 11; Stop 08/25/16 at 07:12; Status DC Lidocaine HCl 100 mg STK-MED ONCE .ROUTE ; Start 08/25/16 at 07:11; Stop at 07:12; Status DC Ondansetron HCl (Zofran) 4 mg STK-MED ONCE .ROUTE ; Start 08/25/16 at 07:11; Stop 08/25/16 at 07:12; Status DC Dexamethasone Sodium Phosphate (Decadron) 20 mg STK-MED ONCE .ROUTE ; Start at 07:11; Stop 08/25/16 at 07:12; Status DC Etomidate (Amidate) 20 mg STK-MED ONCE IV ; Start 08/25/16 at 07:11; Stop at 07:12; Status DC Rocuronium [place] (Zemuron) 50 mg STK-MED ONCE .ROUTE ; Start 08/25/16 at 07:30 ; Stop 08/25/16 at 07:31; Status DC Ketamine HCl 500 mg STK-MED ONCE .ROUTE ; Start 08/25/16 at 09:54; Stop at 09:55; Status DC Rocuronium [place] (Zemuron) 50 mg STK-MED ONCE .ROUTE ; Start 08/25/16 at 11:00 ; Stop 08/25/16 at 11:01; Status DC Cellulose 1 each STK-MED ONCE .ROUTE Last administered on 08/25/16t 11:15; Start 08/25/16 at 11:14; Stop 08/25/16 at 11:15; Status DC Glycopyrrolate (Robinul) 1 mg STK-MED ONCE .ROUTE ; Start 08/25/16 at 11:25; Stop 08/25/16 at 11:26; Status DC Neostigmine Methylsulfate 5 mg STK-MED ONCE .ROUTE ; Start 08/25/16 at 11:25; Stop 08/25/16 at 11:26; Status DC Enoxaparin Sodium (Lovenox 30mg Syringe) 30 mg QHS SQ Last administered on 08/25t 21:24; Start 08/25/16 at 21:00; Stop 08/26/16 at 14:21; Status DC Sodium Chloride 3 ml 3 ml QSHIFT PRN IV AFTER MEDS AND BLOOD DRAWS; Start 08/25 at 11:30 Lactated Ringer's (Iv Lactated Ringers) 1,000 ml @ 100 mls/hr Q10H IV ; Start 08/25/16 at 11:30; Stop 08/26/16 at 09:11; Status DC Acetaminophen/ Hydrocodone Bitart (Lortab 5/325) 1 tab PRN Q4HRS PRN PO MILD PAIN Last administered on 08/29/16 13:26; Start 08/25/16 at 11:30 Hydromorphone HCl (Dilaudid) 0.2 mg PRN Q1HR PRN IV PAIN Last administered on 17:20; Start 08/25/16 at 11:30 Docusate Sodium (Colace) 100 mg BID PO Last administered on 08/29/16 08:59; Start 08/25/16 at 21:00 Ondansetron HCl (Zofran) 4 mg PRN Q6HRS PRN IV NAUESA, 1ST CHOICE Last administered on 08/28/16 12:37; Start 08/25/16 at 11:30 Insulin Human Regular 3 unit 3 unit 1X ONCE IV Last administered on 08/25/16 12:49; Start 08/25/16 at 12:45; Stop 08/25/16 at 12:46; Status DC Magnesium Sulfate/ Dextrose (Magnesium Sulfate PREMIX 2GM) 50 ml @ 25 mls/hr PRN DAILY PRN IV for Mag < 1.7 on am labs; Start 08/25/16 at 17:45 Hydralazine HCl 20 mg 20 mg PRN Q4HRS PRN IVP ELEVATED BP, SEE COMMENTS; Start 08/25/16 at 17:45 Sodium Chloride 1,000 ml @ 1,000 mls/hr Q1H PRN IV hypotension; Start 08/26/16 at 09:00; Stop 08/26/16 at 14:59; Status DC Sodium Chloride (Iv Sodium Chloride 0.9% 1000ml Bag) 1,000 ml @ 400 mls/hr Q2H30M PRN IV PATENCY; Start 08/26/16 at 09:00; Stop 08/26/16 at 20:59; Status DC Info (PHARMACY MONITORING -- do not chart) 1 each PRN DAILY PRN MC SEE COMMENTS ; Start 08/26/16 at 10:00 Heparin Sodium (Porcine) 5000 unit 5,000 unit Q8HRS SQ Last administered on 06:49; Start 08/26/16 at 22:00 Magnesium Sulfate/ Dextrose (Magnesium Sulfate PREMIX 2GM) 50 ml @ 25 mls/hr 1X ONCE IV Last administered on 08/26/16 21:34; Start 08/26/16 at 21:30; Stop 08/26/16 at 23:29; Status DC Allopurinol (Zyloprim) 300 mg DAILY PO Last administered on 08/27/16 16:06; Start 08/27/16 at 16:00; Stop 08/28/16 at 11:11; Status DC Aspirin (Children'S Aspirin) 81 mg DAILY PO Last administered on 08/29/16 08: 58; Start 08/27/16 at 16:00 Calcium Acetate (Phoslo) 667 mg TIDWMEALS PO Last administered on 08/29/16 12: 09; Start 08/27/16 at 17:00 Digoxin (Lanoxin) 125 mcg DAILY PO Last administered on 08/29/16 08:58; Start 08/27/16 at 16:00 Folic Acid/ Multivitamins/Vit B12 (Nephro-Mouna) 1 tab DAILY PO Last administered on 08/29/16 08:59; Start 08/27/16 at 16:00 Gabapentin (Neurontin) 100 mg BID PO Last administered on 08/29/16 08:59; Start 08/27/16 at 21:00 Nitroglycerin (Nitrostat) 0.4 mg PRN Q5MIN PRN SL CHEST PAIN; Start 08/27/16 at 15:30 Oxycodone/ Acetaminophen (Percocet 7.5/ 325) 1 tab PRN TID PRN PO MODERATE PAIN ; Start 08/27/16 at 15:30 Polyethylene Glycol (miraLAX PACKET) 17 gm PRN BID PRN PO CONSTIPATION Last administered on 08/29/16 08:58; Start 08/28/16 at 09:00 Ranolazine (Ranexa) 500 mg DAILY PO Last administered on 08/29/16 08:58; Start 08/27/16 at 16:00 Tamsulosin HCl (Flomax) 0.4 mg QHS PO Last administered on 08/28/16 21:11; Start 08/27/16 at 21:00 Insulin Detemir (Levemir) 30 units BIDWMEALS SQ Last administered on 08/27/16 17:34; Start 08/27/16 at 17:00; Stop 08/28/16 at 09:01; Status DC Albuterol Sulfate (Ventolin Neb Soln) 2.5 mg RTQID NEB Last administered on 11:11; Start 08/27/16 at 16:00 Budesonide 0.5 mg 0.5 mg RTBID NEB Last administered on 08/29/16 11:12; Start 08/27/16 at 20:00 Sodium Chloride 1,000 ml @ 1,000 mls/hr Q1H PRN IV hypotension; Start 08/28/16 at 07:46; Stop 08/28/16 at 13:45; Status DC Albumin Human (Albuminar) 200 ml @ 200 mls/hr 1X PRN PRN IV Hypotension; Start 08/28/16 at 08:00; Stop 08/28/16 at 13:59; Status DC Diphenhydramine HCl 25 mg 25 mg 1X PRN PRN IV ITCHING; Start 08/28/16 at 08:00 ; Stop 08/29/16 at 07:59; Status DC Sodium Chloride (Iv Sodium Chloride 0.9% 1000ml Bag) 1,000 ml @ 400 mls/hr Q2H30M PRN IV PATENCY; Start 08/28/16 at 07:46; Stop 08/28/16 at 19:45; Status DC Info (PHARMACY MONITORING -- do not chart) 1 each PRN DAILY PRN MC SEE COMMENTS ; Start 08/28/16 at 08:00; Stop 08/28/16 at 08:00; Status DC Info (PHARMACY MONITORING -- do not chart) 1 each PRN DAILY PRN MC SEE COMMENTS ; Start 08/28/16 at 08:00; Stop 08/28/16 at 08:00; Status DC Lidocaine HCl (Xylocaine-Mpf 1% Vial) 2 ml 1X ONCE INJ Last administered on 08:51; Start 08/28/16 at 08:00; Stop 08/28/16 at 08:01; Status DC Insulin Detemir (Levemir) 20 units BIDWMEALS SQ Last administered on 08/28/16 16:33; Start 08/28/16 at 17:00; Stop 08/29/16 at 12:14; Status DC Allopurinol (Zyloprim) 300 mg Q48H PO Last administered on 08/29/16 08:59; Start 08/29/16 at 09:00 Dextrose 12.5 gm PRN Q15MIN PRN IV SEE COMMENTS; Start 08/28/16 at 11:30 Insulin Detemir (Levemir) 16 units BIDWMEALS SQ ; Start 08/29/16 at 17:00; Status UNV Insulin Detemir (Levemir) 16 units 1X ONCE SQ Last administered on 08/29/16t 12:17; Start 08/29/16 at 12:15; Stop 08/29/16 at 12:19; Status DC Insulin Detemir (Levemir) 16 units BIDWMEALS SQ ; Start 08/29/16 at 17:00 Active Scripts Active Reported Gabapentin 100 Mg Capsule 100 Mg PO BID Ranexa (Ranolazine) 500 Mg Tab.er.12h 1 Tab PO DAILY Phoslo (Calcium Acetate) 667 Mg Capsule 667 Mg PO TIDWMEALS Polyethylene Glycol 3350 255 Gm Powder 17 Gm PO DAILY PRN Anoro Ellipta 62.5-25 Mcg Inh (Umeclidinium Brm/Vilanterol Tr) 1 Each Disk.w.dev 1 Each IH DAILY Clopidogrel (Clopidogrel Bisulfate) 75 Mg Tablet 1 Tab PO DAILY Percocet 7.5-325 Mg Tablet (Oxycodone/Acetaminophen) 1 Each Tablet 1 Tab PO TID PRN Dialyvite 800 Tablet (Folic Acid/Vitamin B Comp W-C) 0.8 Mg Tablet 0.8 Mg PO DAILY NITROGLYCERIN SubLingual (Nitroglycerin) 0.4 Mg Tab.subl 0.4 Mg SL PRN Humulin 70-30 Vial (Hum Insulin Nph/Reg Insulin Hm) 100 Unit/1 Ml Vial 30 Unit SQ BIDWMEALS Allopurinol 300 Mg Tablet 300 Mg PO DAILY Pepcid (Famotidine) 20 Mg Tablet 20 Mg PO QHS Lanoxin (Digoxin) 125 Mcg Tablet 125 Mcg PO DAILY Flomax (Tamsulosin Hcl) 0.4 Mg Cap.er.24h 0.4 Mg PO HS Aspirin 81 Mg Tab.chew 81 Mg PO DAILY Vitals/I & O Vital Sign - Last 24 Hours 08/28/16 08/28/16 08/28/16 08/28/16 15:00 15:00 16:41 19:20 Temp 97.4 97.7 97.4 97.7 Pulse 66 66 Resp 18 17 B/P 108/52 118/52 Pulse Ox 99 98 100 O2 Delivery Nasal Cannula Nasal Cannula Nasal Cannula O2 Flow Rate 2.0 3.0 4.0 4.0 08/28/16 08/28/16 08/28/16 08/29/16 20:08 21:10 23:36 03:20 Temp 97.7 97.4 97.7 97.4 Pulse 73 63 Resp 18 17 B/P 109/46 112/51 Pulse Ox 97 98 96 O2 Delivery Nasal Cannula Nasal Cannula Nasal Cannula Nasal Cannula O2 Flow Rate 4.0 4.0 4.0 4.0 08/29/16 08/29/16 08/29/16 08/29/16 07:00 08:20 08:30 08:57 Temp 97.9 97.9 97.9 97.9 Pulse 60 60 Resp 18 18 B/P 116/52 116/52 Pulse Ox 100 100 O2 Delivery Nasal Cannula Nasal Cannula Nasal Cannula Nasal Cannula O2 Flow Rate 4.0 4.0 4.0 08/29/16 08/29/16 08/29/16 08/29/16 08:58 08:58 10:48 11:14 Pulse 60 60 B/P 116/52 116/52 Pulse Ox 100 O2 Delivery Nasal Cannula Nasal Cannula O2 Flow Rate 4.0 08/29/16 08/29/16 11:14 13:26 Pulse Ox 100 O2 Delivery Nasal Cannula Nasal Cannula O2 Flow Rate 4.0 4.0 Intake and Output 08/28/16 08/28/16 08/29/16 15:00 23:00 07:00 Intake Total 0 ml 100 ml Output Total 0 ml Balance 0 ml 100 ml LEXI ALTAMIRANO MD Aug 29, 2016 13:44
[2016-08-29] MEDS ORDERED: INSULIN DETEMIR 300 UNITS/3 ML INSULN.PEN. SQ SCH (17:00)
[2016-08-29] MEDS: TAMSULOSIN 0.4 MG CAP.ER.24H. PO SCH (21:27)
--- NOTE | 2016-08-29 23:06 | PDOC ---
Provider Note Provider Note RENAL F/U : ALY S : Doing fair No new c/o O : VSS Afebrile. Awake. Not fully alert. Neck : Supple Lungs : Non labored. Slightly decreased bases. CVS : RRR Abd : Soft. Benign in appearance Ext : No edema/ trace. Neuro : No major focal issues Labs, meds, I/Os reviewed. A/P ESRD HTN with CKD ANEMIA Replace K HD per schedule. Labs I/Os Supportive care No HD needs. Renal status better/stable. Obie Lu M.D. OBIE LU MD Aug 29, 2016 23:06
[2016-08-30 03:07] VITALS: BP 139/50
[2016-08-30] MEDS: HYDROCODONE/APAP 5/325MG TABLET. PO PRN ×2 (06:25→20:15)
[2016-08-30] MEDS: HEPARIN PF for SUB-Q USE 5,000 UNIT/0.5 ML VIAL. SQ SCH ×3 (06:33→23:49)
[2016-08-30] MEDS: ALBUTEROL SULFATE 2.5 MG/3 ML NEBU. NEB SCH ×4 (06:54→20:00)
[2016-08-30] MEDS: BUDESONIDE 0.5 MG/2 ML NEBU NEB SCH ×2 (06:54→14:52)
[2016-08-30 07:00] VITALS: BP 130/45
[2016-08-30] MEDS: CALCIUM ACETATE 667 MG CAPSULE PO SCH ×3 (08:00→16:57)
[2016-08-30] MEDS: INSULIN DETEMIR 300 UNITS/3 ML INSULN.PEN. SQ SCH ×2 (08:00→17:03)
[2016-08-30] MEDS: DIGOXIN 125 MCG TABLET PO SCH (09:00)
[2016-08-30] MEDS: ASPIRIN 81 MG TAB.CHEW PO SCH (09:00)
[2016-08-30] MEDS: DOCUSATE SODIUM 100 MG CAPSULE PO SCH ×2 (09:00→23:40)
[2016-08-30] MEDS: RANOLAZINE 500 MG TAB.ER.12H PO SCH (09:00)
[2016-08-30] MEDS: GABAPENTIN 100 MG CAPSULE. PO SCH ×2 (09:00→23:41)
[2016-08-30] MEDS: FOLIC/VIT B COMP W-C (RENAL) TABLET. PO SCH (09:00)
[2016-08-30 09:36] LABS: ALBUMIN 2.7 g/dL (3.4-5.0); CALCIUM 7.9 mg/dL (8.5-10.1); CREATININE 7.6 mg/dL (0.7-1.3); GFR 7.2; PHOSPHORUS 4.1 mg/dL (2.6-4.7)
[2016-08-30 09:56] LABS: POTASSIUM 5.2 mmol/L (3.5-5.1)
--- NOTE | 2016-08-30 09:56 | PDOC ---
Provider Note Provider Note NO NEW SXS, VSS- GLUCose 124 this am on lower dose levemir- path pending- will cont same for now SANDEEP YANG MD Aug 30, 2016 09:56
[2016-08-30 11:00] VITALS: BP 100/44
--- NOTE | 2016-08-30 13:20 | PDOC ---
PROGRESS NOTES Subjective Subjective barbara po well, had a stool, no new complaints Objective Objective Vital Signs Date Time Temp Pulse Resp B/P Pulse Ox O2 Delivery O2 Flow Rate FiO2 08/30/16 11:00 98.1 59 18 100/44 94 Room Air 98.1 08/30/16 10:47 2.0 Intake and Output 08/30/16 07:00 Intake Total 370 ml Output Total 1500 ml Balance -1130 ml Intake Oral 370 ml Output Urine Total 1500 ml # Voids 4 Physical Exam Physical Exam abdomen tender at incision, dressing intact Assessment Assessment Problems Medical Problems: (1) Retroperitoneal mass Status: Acute Plan Plan of Care Postop care, await path Comment Review of Relevant I have reviewed the following items nicole (where applicable) has been applied. Labs Laboratory Tests Test 08/28/16 15:55 08/28/16 20:47 08/29/16 06:30 08/29/16 07:44 Glucose (Fingerstick) 199mg/dL (70-99) 238mg/dL (70-99) 93mg/dL (70-99) Sodium Level 142mmol/L (136-145) Potassium Level 4.3mmol/L (3.5-5.1) Chloride Level 104mmol/L (98-107) Carbon Dioxide Level 30mmol/L (21-32) Anion Gap 8 (6-14) Blood Urea Nitrogen 30mg/dL (8-26) Creatinine 5.3mg/dL (0.7-1.3) Estimated GFR (Cockcroft-Gault) 10.9 Glucose Level 103mg/dL (70-99) Calcium Level 8.2mg/dL (8.5-10.1) Phosphorus Level 4.8mg/dL (2.6-4.7) Magnesium Level 2.0mg/dL (1.8-2.4) Albumin 2.5g/dL (3.4-5.0) Test 08/29/16 11:39 08/29/16 16:48 08/29/16 20:59 08/30/16 07:24 Glucose (Fingerstick) 224mg/dL (70-99) 200mg/dL (70-99) 214mg/dL (70-99) 140mg/dL (70-99) Test 08/30/16 09:10 08/30/16 11:24 Sodium Level 139mmol/L (136-145) Potassium Level 5.2mmol/L (3.5-5.1) Chloride Level 100mmol/L (98-107) Carbon Dioxide Level 25mmol/L (21-32) Anion Gap 14 (6-14) Blood Urea Nitrogen 52mg/dL (8-26) Creatinine 7.6mg/dL (0.7-1.3) Estimated GFR (Cockcroft-Gault) 7.2 Glucose Level 202mg/dL (70-99) Calcium Level 7.9mg/dL (8.5-10.1) Phosphorus Level 4.1mg/dL (2.6-4.7) Magnesium Level 2.0mg/dL (1.8-2.4) Albumin 2.7g/dL (3.4-5.0) Glucose (Fingerstick) 225mg/dL (70-99) Laboratory Tests Test 08/29/16 16:48 08/29/16 20:59 08/30/16 07:24 08/30/16 09:10 Glucose (Fingerstick) 200mg/dL (70-99) 214mg/dL (70-99) 140mg/dL (70-99) Sodium Level 139mmol/L (136-145) Potassium Level 5.2mmol/L (3.5-5.1) Chloride Level 100mmol/L (98-107) Carbon Dioxide Level 25mmol/L (21-32) Anion Gap 14 (6-14) Blood Urea Nitrogen 52mg/dL (8-26) Creatinine 7.6mg/dL (0.7-1.3) Estimated GFR (Cockcroft-Gault) 7.2 Glucose Level 202mg/dL (70-99) Calcium Level 7.9mg/dL (8.5-10.1) Phosphorus Level 4.1mg/dL (2.6-4.7) Magnesium Level 2.0mg/dL (1.8-2.4) Albumin 2.7g/dL (3.4-5.0) Test 08/30/16 11:24 Glucose (Fingerstick) 225mg/dL (70-99) Medications Current Medications Ondansetron HCl (Zofran) 4 mg PRN Q6HRS PRN IV Nausea; Start 08/25/16 at 07:00 ; Stop 08/26/16 at 06:59; Status DC Fentanyl Citrate (Fentanyl 2ml Vial) 25 mcg PRN Q5MIN PRN IV MILD PAIN Last administered on 08/25/16t 17:41; Start 08/25/16 at 07:00; Stop 08/25/16 at 23:18 ; Status DC Fentanyl Citrate (Fentanyl 2ml Vial) 50 mcg PRN Q5MIN PRN IV MODERATE PAIN; Start 08/25/16 at 07:00; Stop 08/25/16 at 23:18; Status DC Morphine Sulfate 1 mg 1 mg PRN Q10MIN PRN IV SEVERE PAIN; Start 08/25/16 at 07: 00; Stop 08/25/16 at 23:18; Status DC Lactated Ringer's (Iv Lactated Ringers) 1,000 ml @ 0 mls/hr Q0M IV ; Start at 07:00; Stop 08/25/16 at 18:59; Status DC Lidocaine HCl 2 ml 1X PRN PRN ID IV START; Start 08/25/16 at 07:00; Stop at 06:59; Status DC Hydromorphone HCl (Dilaudid) 0.5 mg PRN Q10MIN PRN IV SEVERE PAIN, Second choice; Start 08/25/16 at 07:00; Stop 08/25/16 at 23:18; Status DC Prochlorperazine Edisylate 5 mg 5 mg PACU PRN PRN IV NAUSEA; Start 08/25/16 at 07:00; Stop 08/25/16 at 23:18; Status DC Cefazolin Sodium/ Dextrose 50 ml @ 100 mls/hr 1X PREOP PRN IV PRIOR TO PROCEDURE Last administered on 08/25/16 08:30; Start 08/25/16 at 06:00; Stop at 18:00; Status DC Sodium Chloride (Iv Sodium Chloride 0.9% 1000ml Bag) 1,000 ml @ 0 mls/hr 1X ONCE IV Last administered on 08/25/16 06:48; Start 08/25/16 at 06:45; Stop at 06:51; Status DC Scopolamine (Transderm-Scop) 1 patch 1X ONCE TD Last administered on 1/17/ 17at 07:03; Start 08/25/16 at 07:00; Stop 08/25/16 at 07:01; Status DC Dexamethasone Sodium Phosphate (Decadron) 4 mg ONCE ONCE IV Last administered on 08/25/16t 07:05; Start 08/25/16 at 07:00; Stop 08/25/16 at 07:01; Status DC Ondansetron HCl (Zofran) 4 mg 1X ONCE IV Last administered on 08/25/16t 07:03 ; Start 08/25/16 at 07:00; Stop 08/25/16 at 07:01; Status DC Sevoflurane (Ultane) 60 ml STK-MED ONCE IH ; Start 08/25/16 at 07:10; Stop 08/25 at 07:11; Status DC Fentanyl Citrate 250 mcg 250 mcg STK-MED ONCE .ROUTE ; Start 08/25/16 at 07:11; Stop 08/25/16 at 07:12; Status DC Propofol (Diprivan) 20 ml @ As Directed STK-MED ONCE IV ; Start 08/25/16 at 07: 11; Stop 08/25/16 at 07:12; Status DC Lidocaine HCl 100 mg STK-MED ONCE .ROUTE ; Start 08/25/16 at 07:11; Stop at 07:12; Status DC Ondansetron HCl (Zofran) 4 mg STK-MED ONCE .ROUTE ; Start 08/25/16 at 07:11; Stop 08/25/16 at 07:12; Status DC Dexamethasone Sodium Phosphate (Decadron) 20 mg STK-MED ONCE .ROUTE ; Start at 07:11; Stop 08/25/16 at 07:12; Status DC Etomidate (Amidate) 20 mg STK-MED ONCE IV ; Start 08/25/16 at 07:11; Stop at 07:12; Status DC Rocuronium [place] (Zemuron) 50 mg STK-MED ONCE .ROUTE ; Start 08/25/16 at 07:30 ; Stop 08/25/16 at 07:31; Status DC Ketamine HCl 500 mg STK-MED ONCE .ROUTE ; Start 08/25/16 at 09:54; Stop at 09:55; Status DC Rocuronium [place] (Zemuron) 50 mg STK-MED ONCE .ROUTE ; Start 08/25/16 at 11:00 ; Stop 08/25/16 at 11:01; Status DC Cellulose 1 each STK-MED ONCE .ROUTE Last administered on 08/25/16 11:15; Start 08/25/16 at 11:14; Stop 08/25/16 at 11:15; Status DC Glycopyrrolate (Robinul) 1 mg STK-MED ONCE .ROUTE ; Start 08/25/16 at 11:25; Stop 08/25/16 at 11:26; Status DC Neostigmine Methylsulfate 5 mg STK-MED ONCE .ROUTE ; Start 08/25/16 at 11:25; Stop 08/25/16 at 11:26; Status DC Enoxaparin Sodium (Lovenox 30mg Syringe) 30 mg QHS SQ Last administered on 08/25 21:24; Start 08/25/16 at 21:00; Stop 08/26/16 at 14:21; Status DC Sodium Chloride 3 ml 3 ml QSHIFT PRN IV AFTER MEDS AND BLOOD DRAWS; Start 08/25 at 11:30 Lactated Ringer's (Iv Lactated Ringers) 1,000 ml @ 100 mls/hr Q10H IV ; Start 08/25/16 at 11:30; Stop 08/26/16 at 09:11; Status DC Acetaminophen/ Hydrocodone Bitart (Lortab 5/325) 1 tab PRN Q4HRS PRN PO MILD PAIN Last administered on 08/30/16 06:25; Start 08/25/16 at 11:30 Hydromorphone HCl (Dilaudid) 0.2 mg PRN Q1HR PRN IV PAIN Last administered on 17:20; Start 08/25/16 at 11:30 Docusate Sodium (Colace) 100 mg BID PO Last administered on 08/30/16 09:00; Start 08/25/16 at 21:00 Ondansetron HCl (Zofran) 4 mg PRN Q6HRS PRN IV NAUESA, 1ST CHOICE Last administered on 08/28/16 12:37; Start 08/25/16 at 11:30 Insulin Human Regular 3 unit 3 unit 1X ONCE IV Last administered on 08/25/16 12:49; Start 08/25/16 at 12:45; Stop 08/25/16 at 12:46; Status DC Magnesium Sulfate/ Dextrose (Magnesium Sulfate PREMIX 2GM) 50 ml @ 25 mls/hr PRN DAILY PRN IV for Mag < 1.7 on am labs; Start 08/25/16 at 17:45 Hydralazine HCl 20 mg 20 mg PRN Q4HRS PRN IVP ELEVATED BP, SEE COMMENTS; Start 08/25/16 at 17:45 Sodium Chloride 1,000 ml @ 1,000 mls/hr Q1H PRN IV hypotension; Start 08/26/16 at 09:00; Stop 08/26/16 at 14:59; Status DC Sodium Chloride (Iv Sodium Chloride 0.9% 1000ml Bag) 1,000 ml @ 400 mls/hr Q2H30M PRN IV PATENCY; Start 08/26/16 at 09:00; Stop 08/26/16 at 20:59; Status DC Info (PHARMACY MONITORING -- do not chart) 1 each PRN DAILY PRN MC SEE COMMENTS ; Start 08/26/16 at 10:00 Heparin Sodium (Porcine) 5000 unit 5,000 unit Q8HRS SQ Last administered on 06:33; Start 08/26/16 at 22:00 Magnesium Sulfate/ Dextrose (Magnesium Sulfate PREMIX 2GM) 50 ml @ 25 mls/hr 1X ONCE IV Last administered on 08/26/16 21:34; Start 08/26/16 at 21:30; Stop 08/26/16 at 23:29; Status DC Allopurinol (Zyloprim) 300 mg DAILY PO Last administered on 08/27/16 16:06; Start 08/27/16 at 16:00; Stop 08/28/16 at 11:11; Status DC Aspirin (Children'S Aspirin) 81 mg DAILY PO Last administered on 08/30/16 09: 00; Start 08/27/16 at 16:00 Calcium Acetate (Phoslo) 667 mg TIDWMEALS PO Last administered on 08/30/16 12: 00; Start 08/27/16 at 17:00 Digoxin (Lanoxin) 125 mcg DAILY PO Last administered on 08/30/16 09:00; Start 08/27/16 at 16:00 Folic Acid/ Multivitamins/Vit B12 (Nephro-Mouna) 1 tab DAILY PO Last administered on 08/30/16 09:00; Start 08/27/16 at 16:00 Gabapentin (Neurontin) 100 mg BID PO Last administered on 08/30/16 09:00; Start 08/27/16 at 21:00 Nitroglycerin (Nitrostat) 0.4 mg PRN Q5MIN PRN SL CHEST PAIN; Start 08/27/16 at 15:30 Oxycodone/ Acetaminophen (Percocet 7.5/ 325) 1 tab PRN TID PRN PO MODERATE PAIN ; Start 08/27/16 at 15:30 Polyethylene Glycol (miraLAX PACKET) 17 gm PRN BID PRN PO CONSTIPATION Last administered on 08/29/16 08:58; Start 08/28/16 at 09:00 Ranolazine (Ranexa) 500 mg DAILY PO Last administered on 08/30/16 09:00; Start 08/27/16 at 16:00 Tamsulosin HCl (Flomax) 0.4 mg QHS PO Last administered on 08/29/16 21:27; Start 08/27/16 at 21:00 Insulin Detemir (Levemir) 30 units BIDWMEALS SQ Last administered on 08/27/16 17:34; Start 08/27/16 at 17:00; Stop 08/28/16 at 09:01; Status DC Albuterol Sulfate (Ventolin Neb Soln) 2.5 mg RTQID NEB Last administered on 10:46; Start 08/27/16 at 16:00 Budesonide 0.5 mg 0.5 mg RTBID NEB Last administered on 08/30/16 06:54; Start 08/27/16 at 20:00 Sodium Chloride 1,000 ml @ 1,000 mls/hr Q1H PRN IV hypotension; Start 08/28/16 at 07:46; Stop 08/28/16 at 13:45; Status DC Albumin Human (Albuminar) 200 ml @ 200 mls/hr 1X PRN PRN IV Hypotension; Start 08/28/16 at 08:00; Stop 08/28/16 at 13:59; Status DC Diphenhydramine HCl 25 mg 25 mg 1X PRN PRN IV ITCHING; Start 08/28/16 at 08:00 ; Stop 08/29/16 at 07:59; Status DC Sodium Chloride (Iv Sodium Chloride 0.9% 1000ml Bag) 1,000 ml @ 400 mls/hr Q2H30M PRN IV PATENCY; Start 08/28/16 at 07:46; Stop 08/28/16 at 19:45; Status DC Info (PHARMACY MONITORING -- do not chart) 1 each PRN DAILY PRN MC SEE COMMENTS ; Start 08/28/16 at 08:00; Stop 08/28/16 at 08:00; Status DC Info (PHARMACY MONITORING -- do not chart) 1 each PRN DAILY PRN MC SEE COMMENTS ; Start 08/28/16 at 08:00; Stop 08/28/16 at 08:00; Status DC Lidocaine HCl (Xylocaine-Mpf 1% Vial) 2 ml 1X ONCE INJ Last administered on 08:51; Start 08/28/16 at 08:00; Stop 08/28/16 at 08:01; Status DC Insulin Detemir (Levemir) 20 units BIDWMEALS SQ Last administered on 08/28/16 16:33; Start 08/28/16 at 17:00; Stop 08/29/16 at 12:14; Status DC Allopurinol (Zyloprim) 300 mg Q48H PO Last administered on 08/29/16 08:59; Start 08/29/16 at 09:00 Dextrose 12.5 gm PRN Q15MIN PRN IV SEE COMMENTS; Start 08/28/16 at 11:30 Insulin Detemir (Levemir) 16 units BIDWMEALS SQ ; Start 08/29/16 at 17:00; Status UNV Insulin Detemir (Levemir) 16 units 1X ONCE SQ Last administered on 08/29/16 12:17; Start 08/29/16 at 12:15; Stop 08/29/16 at 12:19; Status DC Insulin Detemir (Levemir) 16 units BIDWMEALS SQ Last administered on 08/30/16 08:00; Start 08/29/16 at 17:00 Active Scripts Active Reported Gabapentin 100 Mg Capsule 100 Mg PO BID Ranexa (Ranolazine) 500 Mg Tab.er.12h 1 Tab PO DAILY Phoslo (Calcium Acetate) 667 Mg Capsule 667 Mg PO TIDWMEALS Polyethylene Glycol 3350 255 Gm Powder 17 Gm PO DAILY PRN Anoro Ellipta 62.5-25 Mcg Inh (Umeclidinium Brm/Vilanterol Tr) 1 Each Disk.w.dev 1 Each IH DAILY Clopidogrel (Clopidogrel Bisulfate) 75 Mg Tablet 1 Tab PO DAILY Percocet 7.5-325 Mg Tablet (Oxycodone/Acetaminophen) 1 Each Tablet 1 Tab PO TID PRN Dialyvite 800 Tablet (Folic Acid/Vitamin B Comp W-C) 0.8 Mg Tablet 0.8 Mg PO DAILY NITROGLYCERIN SubLingual (Nitroglycerin) 0.4 Mg Tab.subl 0.4 Mg SL PRN Humulin 70-30 Vial (Hum Insulin Nph/Reg Insulin Hm) 100 Unit/1 Ml Vial 30 Unit SQ BIDWMEALS Allopurinol 300 Mg Tablet 300 Mg PO DAILY Pepcid (Famotidine) 20 Mg Tablet 20 Mg PO QHS Lanoxin (Digoxin) 125 Mcg Tablet 125 Mcg PO DAILY Flomax (Tamsulosin Hcl) 0.4 Mg Cap.er.24h 0.4 Mg PO HS Aspirin 81 Mg Tab.chew 81 Mg PO DAILY Vitals/I & O Vital Sign - Last 24 Hours 08/29/16 08/29/16 08/29/16 08/29/16 13:26 15:00 16:25 19:07 Temp 97.5 96.6 97.5 96.6 Pulse 65 69 Resp 18 18 B/P 120/40 132/58 Pulse Ox 100 100 O2 Delivery Nasal Cannula Nasal Cannula Nasal Cannula Room Air O2 Flow Rate 4.0 4.0 3.0 08/29/16 08/29/16 08/29/16 08/29/16 20:00 20:03 20:04 23:16 Temp 97.5 97.5 Pulse 68 Resp 18 B/P 136/48 Pulse Ox 100 100 100 O2 Delivery Nasal Cannula Nasal Cannula Nasal Cannula Nasal Cannula O2 Flow Rate 4.0 3.0 3.0 4.0 08/30/16 08/30/16 08/30/16 08/30/16 03:07 06:57 07:00 07:24 Temp 99.0 98.2 99.0 98.2 Pulse 69 81 Resp 18 18 B/P 139/50 130/45 Pulse Ox 98 95 96 96 O2 Delivery Nasal Cannula Room Air Nasal Cannula Nasal Cannula O2 Flow Rate 4.0 4.0 4.0 08/30/16 08/30/16 08/30/16 08/30/16 09:00 09:00 10:47 11:00 Temp 98.1 98.1 Pulse 81 81 59 Resp 18 B/P 130/45 130/45 100/44 Pulse Ox 94 O2 Delivery Room Air Room Air O2 Flow Rate 2.0 Intake and Output 08/29/16 08/29/16 08/30/16 15:00 23:00 07:00 Intake Total 270 ml 100 ml Output Total 0 ml 1500 ml Balance 270 ml -1400 ml YOVANA PLAZA MD Aug 30, 2016 13:20
[2016-08-30 15:00] VITALS: BP 124/50
--- NOTE | 2016-08-30 15:52 | PDOC ---
PROGRESS NOTES Subjective Subjective Patient complains of some pain. He ambulated earlier. Tolerating diet well. Objective Objective Vital Signs Date Time Temp Pulse Resp B/P Pulse Ox O2 Delivery O2 Flow Rate FiO2 08/30/16 15:00 97.7 68 18 124/50 95 Nasal Cannula 4.0 97.7 Intake and Output 08/30/16 07:00 Intake Total 370 ml Output Total 1500 ml Balance -1130 ml Intake Oral 370 ml Output Urine Total 1500 ml # Voids 4 Physical Exam Physical Exam No significant changes in cardiac exam Assessment Assessment Patient continues to improve. I agree with present plan. Problems Medical Problems: (1) Retroperitoneal mass Status: Acute Comment Review of Relevant I have reviewed the following items nicole (where applicable) has been applied. Labs Laboratory Tests Test 08/28/16 15:55 08/28/16 20:47 08/29/16 06:30 08/29/16 07:44 Glucose (Fingerstick) 199mg/dL (70-99) 238mg/dL (70-99) 93mg/dL (70-99) Sodium Level 142mmol/L (136-145) Potassium Level 4.3mmol/L (3.5-5.1) Chloride Level 104mmol/L (98-107) Carbon Dioxide Level 30mmol/L (21-32) Anion Gap 8 (6-14) Blood Urea Nitrogen 30mg/dL (8-26) Creatinine 5.3mg/dL (0.7-1.3) Estimated GFR (Cockcroft-Gault) 10.9 Glucose Level 103mg/dL (70-99) Calcium Level 8.2mg/dL (8.5-10.1) Phosphorus Level 4.8mg/dL (2.6-4.7) Magnesium Level 2.0mg/dL (1.8-2.4) Albumin 2.5g/dL (3.4-5.0) Test 08/29/16 11:39 08/29/16 16:48 08/29/16 20:59 08/30/16 07:24 Glucose (Fingerstick) 224mg/dL (70-99) 200mg/dL (70-99) 214mg/dL (70-99) 140mg/dL (70-99) Test 08/30/16 09:10 08/30/16 11:24 Sodium Level 139mmol/L (136-145) Potassium Level 5.2mmol/L (3.5-5.1) Chloride Level 100mmol/L (98-107) Carbon Dioxide Level 25mmol/L (21-32) Anion Gap 14 (6-14) Blood Urea Nitrogen 52mg/dL (8-26) Creatinine 7.6mg/dL (0.7-1.3) Estimated GFR (Cockcroft-Gault) 7.2 Glucose Level 202mg/dL (70-99) Calcium Level 7.9mg/dL (8.5-10.1) Phosphorus Level 4.1mg/dL (2.6-4.7) Magnesium Level 2.0mg/dL (1.8-2.4) Albumin 2.7g/dL (3.4-5.0) Glucose (Fingerstick) 225mg/dL (70-99) Laboratory Tests Test 08/29/16 16:48 08/29/16 20:59 08/30/16 07:24 08/30/16 09:10 Glucose (Fingerstick) 200mg/dL (70-99) 214mg/dL (70-99) 140mg/dL (70-99) Sodium Level 139mmol/L (136-145) Potassium Level 5.2mmol/L (3.5-5.1) Chloride Level 100mmol/L (98-107) Carbon Dioxide Level 25mmol/L (21-32) Anion Gap 14 (6-14) Blood Urea Nitrogen 52mg/dL (8-26) Creatinine 7.6mg/dL (0.7-1.3) Estimated GFR (Cockcroft-Gault) 7.2 Glucose Level 202mg/dL (70-99) Calcium Level 7.9mg/dL (8.5-10.1) Phosphorus Level 4.1mg/dL (2.6-4.7) Magnesium Level 2.0mg/dL (1.8-2.4) Albumin 2.7g/dL (3.4-5.0) Test 08/30/16 11:24 Glucose (Fingerstick) 225mg/dL (70-99) Medications Current Medications Ondansetron HCl (Zofran) 4 mg PRN Q6HRS PRN IV Nausea; Start 08/25/16 at 07:00 ; Stop 08/26/16 at 06:59; Status DC Fentanyl Citrate (Fentanyl 2ml Vial) 25 mcg PRN Q5MIN PRN IV MILD PAIN Last administered on 08/25/16t 17:41; Start 08/25/16 at 07:00; Stop 08/25/16 at 23:18 ; Status DC Fentanyl Citrate (Fentanyl 2ml Vial) 50 mcg PRN Q5MIN PRN IV MODERATE PAIN; Start 08/25/16 at 07:00; Stop 08/25/16 at 23:18; Status DC Morphine Sulfate 1 mg 1 mg PRN Q10MIN PRN IV SEVERE PAIN; Start 08/25/16 at 07: 00; Stop 08/25/16 at 23:18; Status DC Lactated Ringer's (Iv Lactated Ringers) 1,000 ml @ 0 mls/hr Q0M IV ; Start at 07:00; Stop 08/25/16 at 18:59; Status DC Lidocaine HCl 2 ml 1X PRN PRN ID IV START; Start 08/25/16 at 07:00; Stop at 06:59; Status DC Hydromorphone HCl (Dilaudid) 0.5 mg PRN Q10MIN PRN IV SEVERE PAIN, Second choice; Start 08/25/16 at 07:00; Stop 08/25/16 at 23:18; Status DC Prochlorperazine Edisylate 5 mg 5 mg PACU PRN PRN IV NAUSEA; Start 08/25/16 at 07:00; Stop 08/25/16 at 23:18; Status DC Cefazolin Sodium/ Dextrose 50 ml @ 100 mls/hr 1X PREOP PRN IV PRIOR TO PROCEDURE Last administered on 08/25/16 08:30; Start 08/25/16 at 06:00; Stop at 18:00; Status DC Sodium Chloride (Iv Sodium Chloride 0.9% 1000ml Bag) 1,000 ml @ 0 mls/hr 1X ONCE IV Last administered on 08/25/16 06:48; Start 08/25/16 at 06:45; Stop at 06:51; Status DC Scopolamine (Transderm-Scop) 1 patch 1X ONCE TD Last administered on t 07:03; Start 08/25/16 at 07:00; Stop 08/25/16 at 07:01; Status DC Dexamethasone Sodium Phosphate (Decadron) 4 mg ONCE ONCE IV Last administered on 08/25/16t 07:05; Start 08/25/16 at 07:00; Stop 08/25/16 at 07:01; Status DC Ondansetron HCl (Zofran) 4 mg 1X ONCE IV Last administered on 08/25/16t 07:03 ; Start 08/25/16 at 07:00; Stop 08/25/16 at 07:01; Status DC Sevoflurane (Ultane) 60 ml STK-MED ONCE IH ; Start 08/25/16 at 07:10; Stop 08/25 at 07:11; Status DC Fentanyl Citrate 250 mcg 250 mcg STK-MED ONCE .ROUTE ; Start 08/25/16 at 07:11; Stop 08/25/16 at 07:12; Status DC Propofol (Diprivan) 20 ml @ As Directed STK-MED ONCE IV ; Start 08/25/16 at 07: 11; Stop 08/25/16 at 07:12; Status DC Lidocaine HCl 100 mg STK-MED ONCE .ROUTE ; Start 08/25/16 at 07:11; Stop at 07:12; Status DC Ondansetron HCl (Zofran) 4 mg STK-MED ONCE .ROUTE ; Start 08/25/16 at 07:11; Stop 08/25/16 at 07:12; Status DC Dexamethasone Sodium Phosphate (Decadron) 20 mg STK-MED ONCE .ROUTE ; Start at 07:11; Stop 08/25/16 at 07:12; Status DC Etomidate (Amidate) 20 mg STK-MED ONCE IV ; Start 08/25/16 at 07:11; Stop at 07:12; Status DC Rocuronium [place] (Zemuron) 50 mg STK-MED ONCE .ROUTE ; Start 08/25/16 at 07:30 ; Stop 08/25/16 at 07:31; Status DC Ketamine HCl 500 mg STK-MED ONCE .ROUTE ; Start 08/25/16 at 09:54; Stop at 09:55; Status DC Rocuronium [place] (Zemuron) 50 mg STK-MED ONCE .ROUTE ; Start 08/25/16 at 11:00 ; Stop 08/25/16 at 11:01; Status DC Cellulose 1 each STK-MED ONCE .ROUTE Last administered on 08/25/16 11:15; Start 08/25/16 at 11:14; Stop 08/25/16 at 11:15; Status DC Glycopyrrolate (Robinul) 1 mg STK-MED ONCE .ROUTE ; Start 08/25/16 at 11:25; Stop 08/25/16 at 11:26; Status DC Neostigmine Methylsulfate 5 mg STK-MED ONCE .ROUTE ; Start 08/25/16 at 11:25; Stop 08/25/16 at 11:26; Status DC Enoxaparin Sodium (Lovenox 30mg Syringe) 30 mg QHS SQ Last administered on 08/25 21:24; Start 08/25/16 at 21:00; Stop 08/26/16 at 14:21; Status DC Sodium Chloride 3 ml 3 ml QSHIFT PRN IV AFTER MEDS AND BLOOD DRAWS; Start 08/25 at 11:30 Lactated Ringer's (Iv Lactated Ringers) 1,000 ml @ 100 mls/hr Q10H IV ; Start 08/25/16 at 11:30; Stop 08/26/16 at 09:11; Status DC Acetaminophen/ Hydrocodone Bitart (Lortab 5/325) 1 tab PRN Q4HRS PRN PO MILD PAIN Last administered on 08/30/16 06:25; Start 08/25/16 at 11:30 Hydromorphone HCl (Dilaudid) 0.2 mg PRN Q1HR PRN IV PAIN Last administered on 17:20; Start 08/25/16 at 11:30 Docusate Sodium (Colace) 100 mg BID PO Last administered on 08/30/16 09:00; Start 08/25/16 at 21:00 Ondansetron HCl (Zofran) 4 mg PRN Q6HRS PRN IV NAUESA, 1ST CHOICE Last administered on 08/28/16 12:37; Start 08/25/16 at 11:30 Insulin Human Regular 3 unit 3 unit 1X ONCE IV Last administered on 08/25/16 12:49; Start 08/25/16 at 12:45; Stop 08/25/16 at 12:46; Status DC Magnesium Sulfate/ Dextrose (Magnesium Sulfate PREMIX 2GM) 50 ml @ 25 mls/hr PRN DAILY PRN IV for Mag < 1.7 on am labs; Start 08/25/16 at 17:45 Hydralazine HCl 20 mg 20 mg PRN Q4HRS PRN IVP ELEVATED BP, SEE COMMENTS; Start 08/25/16 at 17:45 Sodium Chloride 1,000 ml @ 1,000 mls/hr Q1H PRN IV hypotension; Start 08/26/16 at 09:00; Stop 08/26/16 at 14:59; Status DC Sodium Chloride (Iv Sodium Chloride 0.9% 1000ml Bag) 1,000 ml @ 400 mls/hr Q2H30M PRN IV PATENCY; Start 08/26/16 at 09:00; Stop 08/26/16 at 20:59; Status DC Info (PHARMACY MONITORING -- do not chart) 1 each PRN DAILY PRN MC SEE COMMENTS ; Start 08/26/16 at 10:00 Heparin Sodium (Porcine) 5000 unit 5,000 unit Q8HRS SQ Last administered on 06:33; Start 08/26/16 at 22:00 Magnesium Sulfate/ Dextrose (Magnesium Sulfate PREMIX 2GM) 50 ml @ 25 mls/hr 1X ONCE IV Last administered on 08/26/16 21:34; Start 08/26/16 at 21:30; Stop 08/26/16 at 23:29; Status DC Allopurinol (Zyloprim) 300 mg DAILY PO Last administered on 08/27/16 16:06; Start 08/27/16 at 16:00; Stop 08/28/16 at 11:11; Status DC Aspirin (Children'S Aspirin) 81 mg DAILY PO Last administered on 08/30/16 09: 00; Start 08/27/16 at 16:00 Calcium Acetate (Phoslo) 667 mg TIDWMEALS PO Last administered on 08/30/16 12: 00; Start 08/27/16 at 17:00 Digoxin (Lanoxin) 125 mcg DAILY PO Last administered on 08/30/16 09:00; Start 08/27/16 at 16:00 Folic Acid/ Multivitamins/Vit B12 (Nephro-Mouna) 1 tab DAILY PO Last administered on 08/30/16 09:00; Start 08/27/16 at 16:00 Gabapentin (Neurontin) 100 mg BID PO Last administered on 08/30/16 09:00; Start 08/27/16 at 21:00 Nitroglycerin (Nitrostat) 0.4 mg PRN Q5MIN PRN SL CHEST PAIN; Start 08/27/16 at 15:30 Oxycodone/ Acetaminophen (Percocet 7.5/ 325) 1 tab PRN TID PRN PO MODERATE PAIN ; Start 08/27/16 at 15:30 Polyethylene Glycol (miraLAX PACKET) 17 gm PRN BID PRN PO CONSTIPATION Last administered on 08/29/16 08:58; Start 08/28/16 at 09:00 Ranolazine (Ranexa) 500 mg DAILY PO Last administered on 08/30/16 09:00; Start 08/27/16 at 16:00 Tamsulosin HCl (Flomax) 0.4 mg QHS PO Last administered on 08/29/16 21:27; Start 08/27/16 at 21:00 Insulin Detemir (Levemir) 30 units BIDWMEALS SQ Last administered on 08/27/16 17:34; Start 08/27/16 at 17:00; Stop 08/28/16 at 09:01; Status DC Albuterol Sulfate (Ventolin Neb Soln) 2.5 mg RTQID NEB Last administered on 14:52; Start 08/27/16 at 16:00 Budesonide 0.5 mg 0.5 mg RTBID NEB Last administered on 08/30/16 14:52; Start 08/27/16 at 20:00 Sodium Chloride 1,000 ml @ 1,000 mls/hr Q1H PRN IV hypotension; Start 08/28/16 at 07:46; Stop 08/28/16 at 13:45; Status DC Albumin Human (Albuminar) 200 ml @ 200 mls/hr 1X PRN PRN IV Hypotension; Start 08/28/16 at 08:00; Stop 08/28/16 at 13:59; Status DC Diphenhydramine HCl 25 mg 25 mg 1X PRN PRN IV ITCHING; Start 08/28/16 at 08:00 ; Stop 08/29/16 at 07:59; Status DC Sodium Chloride (Iv Sodium Chloride 0.9% 1000ml Bag) 1,000 ml @ 400 mls/hr Q2H30M PRN IV PATENCY; Start 08/28/16 at 07:46; Stop 08/28/16 at 19:45; Status DC Info (PHARMACY MONITORING -- do not chart) 1 each PRN DAILY PRN MC SEE COMMENTS ; Start 08/28/16 at 08:00; Stop 08/28/16 at 08:00; Status DC Info (PHARMACY MONITORING -- do not chart) 1 each PRN DAILY PRN MC SEE COMMENTS ; Start 08/28/16 at 08:00; Stop 08/28/16 at 08:00; Status DC Lidocaine HCl (Xylocaine-Mpf 1% Vial) 2 ml 1X ONCE INJ Last administered on 08:51; Start 08/28/16 at 08:00; Stop 08/28/16 at 08:01; Status DC Insulin Detemir (Levemir) 20 units BIDWMEALS SQ Last administered on 08/28/16 16:33; Start 08/28/16 at 17:00; Stop 08/29/16 at 12:14; Status DC Allopurinol (Zyloprim) 300 mg Q48H PO Last administered on 08/29/16 08:59; Start 08/29/16 at 09:00 Dextrose 12.5 gm PRN Q15MIN PRN IV SEE COMMENTS; Start 08/28/16 at 11:30 Insulin Detemir (Levemir) 16 units BIDWMEALS SQ ; Start 08/29/16 at 17:00; Status UNV Insulin Detemir (Levemir) 16 units 1X ONCE SQ Last administered on 08/29/16 12:17; Start 08/29/16 at 12:15; Stop 08/29/16 at 12:19; Status DC Insulin Detemir (Levemir) 16 units BIDWMEALS SQ Last administered on 08/30/16 08:00; Start 08/29/16 at 17:00 Active Scripts Active Reported Gabapentin 100 Mg Capsule 100 Mg PO BID Ranexa (Ranolazine) 500 Mg Tab.er.12h 1 Tab PO DAILY Phoslo (Calcium Acetate) 667 Mg Capsule 667 Mg PO TIDWMEALS Polyethylene Glycol 3350 255 Gm Powder 17 Gm PO DAILY PRN Anoro Ellipta 62.5-25 Mcg Inh (Umeclidinium Brm/Vilanterol Tr) 1 Each Disk.w.dev 1 Each IH DAILY Clopidogrel (Clopidogrel Bisulfate) 75 Mg Tablet 1 Tab PO DAILY Percocet 7.5-325 Mg Tablet (Oxycodone/Acetaminophen) 1 Each Tablet 1 Tab PO TID PRN Dialyvite 800 Tablet (Folic Acid/Vitamin B Comp W-C) 0.8 Mg Tablet 0.8 Mg PO DAILY NITROGLYCERIN SubLingual (Nitroglycerin) 0.4 Mg Tab.subl 0.4 Mg SL PRN Humulin 70-30 Vial (Hum Insulin Nph/Reg Insulin Hm) 100 Unit/1 Ml Vial 30 Unit SQ BIDWMEALS Allopurinol 300 Mg Tablet 300 Mg PO DAILY Pepcid (Famotidine) 20 Mg Tablet 20 Mg PO QHS Lanoxin (Digoxin) 125 Mcg Tablet 125 Mcg PO DAILY Flomax (Tamsulosin Hcl) 0.4 Mg Cap.er.24h 0.4 Mg PO HS Aspirin 81 Mg Tab.chew 81 Mg PO DAILY Vitals/I & O Vital Sign - Last 24 Hours 08/29/16 08/29/16 08/29/16 08/29/16 16:25 19:07 20:00 20:03 Temp 96.6 96.6 Pulse 69 Resp 18 B/P 132/58 Pulse Ox 100 100 O2 Delivery Nasal Cannula Room Air Nasal Cannula Nasal Cannula O2 Flow Rate 3.0 4.0 3.0 08/29/16 08/29/16 08/30/16 08/30/16 20:04 23:16 03:07 06:57 Temp 97.5 99.0 97.5 99.0 Pulse 68 69 Resp 18 18 B/P 136/48 139/50 Pulse Ox 100 100 98 95 O2 Delivery Nasal Cannula Nasal Cannula Nasal Cannula Room Air O2 Flow Rate 3.0 4.0 4.0 08/30/16 08/30/16 08/30/16 08/30/16 07:00 07:24 09:00 09:00 Temp 98.2 98.2 Pulse 81 81 81 Resp 18 B/P 130/45 130/45 130/45 Pulse Ox 96 96 O2 Delivery Nasal Cannula Nasal Cannula O2 Flow Rate 4.0 4.0 08/30/16 08/30/16 08/30/16 08/30/16 10:47 11:00 14:50 15:00 Temp 98.1 97.7 98.1 97.7 Pulse 59 68 Resp 18 18 B/P 100/44 124/50 Pulse Ox 94 95 O2 Delivery Room Air Room Air Nasal Cannula Nasal Cannula O2 Flow Rate 2.0 2.0 4.0 Intake and Output 08/29/16 08/29/16 08/30/16 15:00 23:00 07:00 Intake Total 270 ml 100 ml Output Total 0 ml 1500 ml Balance 270 ml -1400 ml LEXI ALTAMIRANO MD Aug 30, 2016 15:52
--- NOTE | 2016-08-30 17:07 | PDOC ---
Provider Note Provider Note RENAL F/U : ALY S : Doing fair No new c/o O : VSS Afebrile. Awake. Not fully alert. Neck : Supple Lungs : Non labored. Slightly decreased bases. CVS : RRR Abd : Soft. Benign in appearance Ext : No edema/ trace. Neuro : No major focal issues Labs, meds, I/Os reviewed. A/P ESRD HTN with CKD ANEMIA Watch K HD per schedule. Labs I/Os Supportive care No HD needs. OBIE LU MD Aug 30, 2016 17:07
[2016-08-30 19:00] VITALS: BP 131/50
[2016-08-30] MEDS: ONDANSETRON PF 4 MG/2 ML VIAL. IV PRN (20:09)
[2016-08-30] MEDS: TAMSULOSIN 0.4 MG CAP.ER.24H. PO SCH (23:41)
[2016-08-30 23:45] VITALS: BP 140/45
[2016-08-31] MEDS ORDERED: IPRATRPIUM/ALBUTEROL 0.5/2.5MG 3 ML NEBU. NEB ONE (00:15)
[2016-08-31] MEDS ORDERED: BUDESONIDE 0.5 MG/2 ML NEBU NEB ONE (00:15)
[2016-08-31 02:58] VITALS: BP 142/55
[2016-08-31] MEDS: HYDROCODONE/APAP 5/325MG TABLET. PO PRN ×2 (06:07→21:30)
[2016-08-31] MEDS: HEPARIN PF for SUB-Q USE 5,000 UNIT/0.5 ML VIAL. SQ SCH ×3 (06:11→21:36)
[2016-08-31 06:38] LABS: ALBUMIN 2.6 g/dL (3.4-5.0); CALCIUM 8.3 mg/dL (8.5-10.1); CREATININE 9.2 mg/dL (0.7-1.3); GFR 5.8; PHOSPHORUS 4.5 mg/dL (2.6-4.7)
[2016-08-31 07:00] VITALS: BP 135/48
[2016-08-31] MEDS: ALBUTEROL SULFATE 2.5 MG/3 ML NEBU. NEB SCH ×4 (07:46→20:02)
[2016-08-31] MEDS: BUDESONIDE 0.5 MG/2 ML NEBU NEB SCH ×2 (07:46→20:02)
[2016-08-31] MEDS: INSULIN DETEMIR 300 UNITS/3 ML INSULN.PEN. SQ SCH ×3 (08:00→17:42)
[2016-08-31] MEDS: CALCIUM ACETATE 667 MG CAPSULE PO SCH ×2 (08:00→17:00)
[2016-08-31] MEDS: DIGOXIN 125 MCG TABLET PO SCH (08:33)
[2016-08-31] MEDS: ONDANSETRON PF 4 MG/2 ML VIAL. IV PRN (08:39)
[2016-08-31] MEDS ORDERED: IV NORMAL SALINE 1000ML BAG 1,000 ML IV PRN ×2 (08:41)
[2016-08-31] MEDS: ASPIRIN 81 MG TAB.CHEW PO SCH (08:45)
[2016-08-31] MEDS ORDERED: DIALYSIS PATIENT. MC PRN (08:45)
[2016-08-31] MEDS: FOLIC/VIT B COMP W-C (RENAL) TABLET. PO SCH (08:45)
[2016-08-31] MEDS ORDERED: LABETALOL 20 MG/4 ML DISP.SYRIN. IVP PRN (08:45)
[2016-08-31] MEDS ORDERED: DIPHENHYDRAMINE 50 MG/ML VIAL IV PRN ×2 (08:45)
[2016-08-31] MEDS: DOCUSATE SODIUM 100 MG CAPSULE PO SCH ×2 (08:45→21:30)
[2016-08-31] MEDS: GABAPENTIN 100 MG CAPSULE. PO SCH ×2 (08:46→21:30)
[2016-08-31] MEDS: RANOLAZINE 500 MG TAB.ER.12H PO SCH ×2 (08:46→08:51)
[2016-08-31] MEDS: ALLOPURINOL 300 MG TABLET. PO SCH (09:00)
--- NOTE | 2016-08-31 11:18 | PDOC ---
Renal-Progress Notes Subjective Notes Notes FEELING BETTER History of Present Illness Hx of present illness STABLE Vitals Vitals Vital Signs Date Time Temp Pulse Resp B/P Pulse Ox O2 Delivery O2 Flow Rate FiO2 08/31/16 08:51 62 142/55 08/31/16 07:48 100 Nasal Cannula 2.0 08/31/16 07:00 98.2 16 98.2 Weight Weight [ ] I.O. Intake and Output Intake and Output 08/31/16 07:00 Intake Total 940 ml Output Total 950 ml Balance -10 ml Intake Oral 940 ml Output Urine Total 0 ml Emesis 950 ml # Voids 1 Labs Labs Laboratory Tests Test 08/30/16 11:24 08/30/16 16:54 08/30/16 20:43 08/31/16 05:05 Glucose (Fingerstick) 225mg/dL (70-99) 182mg/dL (70-99) 155mg/dL (70-99) Sodium Level 139mmol/L (136-145) Potassium Level 5.0mmol/L (3.5-5.1) Chloride Level 99mmol/L (98-107) Carbon Dioxide Level 26mmol/L (21-32) Anion Gap 14 (6-14) Blood Urea Nitrogen 66mg/dL (8-26) Creatinine 9.2mg/dL (0.7-1.3) Estimated GFR (Cockcroft-Gault) 5.8 Glucose Level 80mg/dL (70-99) Calcium Level 8.3mg/dL (8.5-10.1) Phosphorus Level 4.5mg/dL (2.6-4.7) Albumin 2.6g/dL (3.4-5.0) Test 08/31/16 08:11 Glucose (Fingerstick) 66mg/dL (70-99) Review of Systems Constitutional: yes: alert, oriented, weakness Ears/Nose/Throat: Yes: no symptom reported Eyes: Yes: no symptom reported Pulmonary: Yes no symptom reported Cardiovascular: Yes no symptom reported Gastrointestional: Yes: no symptom reported Genitourinary: Yes: no symptom reported Skin: Yes no symptom reported Physical Exam General Appearance: no apparent distress Skin: warm Respiratory: bilateral CTA Heart: S1S2, RRR Abdomen: soft, bowel sounds present Extremities: pulses present Neurology: alert Musculoskeletal: Muscle atrophy, Weakness Assessment Assessment IMP ESRD ANEMIA PLAN HD TODAY UF TO NAVIN BARNARD MD Aug 31, 2016 11:17
--- NOTE | 2016-08-31 11:48 | PDOC ---
LESLEE CENTENO HISTOLOGY SUPERVISOR 08/31/16 1148: SURGICAL PROGRESS NOTE Subjective seen during dialysis had stools n/v yesterday, better day Vital Signs Vital Signs Date Time Temp Pulse Resp B/P Pulse Ox O2 Delivery O2 Flow Rate FiO2 08/31/16 08:51 62 142/55 08/31/16 07:48 100 Nasal Cannula 2.0 08/31/16 07:00 98.2 16 98.2 I&O Intake and Output 08/31/16 07:00 Intake Total 940 ml Output Total 950 ml Balance -10 ml Intake Oral 940 ml Output Urine Total 0 ml Emesis 950 ml # Voids 1 General: Alert, Oriented X3, Cooperative, No acute distress Abdomen: Soft Labs Laboratory Tests Test 08/29/16 16:48 08/29/16 20:59 08/30/16 07:24 08/30/16 09:10 Glucose (Fingerstick) 200mg/dL (70-99) 214mg/dL (70-99) 140mg/dL (70-99) Sodium Level 139mmol/L (136-145) Potassium Level 5.2mmol/L (3.5-5.1) Chloride Level 100mmol/L (98-107) Carbon Dioxide Level 25mmol/L (21-32) Anion Gap 14 (6-14) Blood Urea Nitrogen 52mg/dL (8-26) Creatinine 7.6mg/dL (0.7-1.3) Estimated GFR (Cockcroft-Gault) 7.2 Glucose Level 202mg/dL (70-99) Calcium Level 7.9mg/dL (8.5-10.1) Phosphorus Level 4.1mg/dL (2.6-4.7) Magnesium Level 2.0mg/dL (1.8-2.4) Albumin 2.7g/dL (3.4-5.0) Test 08/30/16 11:24 08/30/16 16:54 08/30/16 20:43 08/31/16 05:05 Glucose (Fingerstick) 225mg/dL (70-99) 182mg/dL (70-99) 155mg/dL (70-99) Sodium Level 139mmol/L (136-145) Potassium Level 5.0mmol/L (3.5-5.1) Chloride Level 99mmol/L (98-107) Carbon Dioxide Level 26mmol/L (21-32) Anion Gap 14 (6-14) Blood Urea Nitrogen 66mg/dL (8-26) Creatinine 9.2mg/dL (0.7-1.3) Estimated GFR (Cockcroft-Gault) 5.8 Glucose Level 80mg/dL (70-99) Calcium Level 8.3mg/dL (8.5-10.1) Phosphorus Level 4.5mg/dL (2.6-4.7) Albumin 2.6g/dL (3.4-5.0) Test 08/31/16 08:11 Glucose (Fingerstick) 66mg/dL (70-99) Laboratory Tests Test 08/30/16 16:54 08/30/16 20:43 08/31/16 05:05 08/31/16 08:11 Glucose (Fingerstick) 182mg/dL (70-99) 155mg/dL (70-99) 66mg/dL (70-99) Sodium Level 139mmol/L (136-145) Potassium Level 5.0mmol/L (3.5-5.1) Chloride Level 99mmol/L (98-107) Carbon Dioxide Level 26mmol/L (21-32) Anion Gap 14 (6-14) Blood Urea Nitrogen 66mg/dL (8-26) Creatinine 9.2mg/dL (0.7-1.3) Estimated GFR (Cockcroft-Gault) 5.8 Glucose Level 80mg/dL (70-99) Calcium Level 8.3mg/dL (8.5-10.1) Phosphorus Level 4.5mg/dL (2.6-4.7) Albumin 2.6g/dL (3.4-5.0) Problem List Problems Medical Problems: (1) Retroperitoneal mass Status: Acute Assessment/Plan s/p nephrectomy continue care Problems: BEATA HARDY MD 08/31/16 4786: SURGICAL PROGRESS NOTE Assessment/Plan pt not feeling well this afternoon after dialysis nausea and emesis, subjective fevers, denies abd pain abd soft will check CT and notify other physicians, may just be secondary to completing dialysis, but will investigate Problems: LESLEE CENTENO APRN Aug 31, 2016 11:48 BEATA HARDY MD Aug 31, 2016 14:56
[2016-08-31 15:00] VITALS: BP 132/49
[2016-08-31] MEDS ORDERED: IOHEXOL 240 MG/ML 50ML VIAL. PO ONE (15:30)
[2016-08-31] MEDS: ACETAMINOPHEN 500 MG TABLET PO PRN ×2 (16:03→23:43)
--- NOTE | 2016-08-31 16:40 | RAD ---
Indication: Status post right nephrectomy. Patient complains of nausea. Axial imaging through the abdomen and pelvis was performed without contrast. Correlation is made with prior CT from 11/10/2013. There is trace pleural fluid in the left lung base. The liver is unremarkable. The gallbladder is surgically absent. The pancreas and spleen are unremarkable. No adrenal mass is detected. The right kidney is surgically absent. The left kidney is unremarkable. The aorta is heavily calcified but nonaneurysmal. The small and large bowel loops are normal caliber. No free fluid in the abdomen or pelvis is identified. There is mild sigmoid diverticulosis but no evidence of acute diverticulitis. Moderate stool in the colon is seen suggestive of constipation. Nonspecific densities noted in the subcutaneous fat of the anterior abdominal wall in the paramidline locations bilaterally are noted, similar to prior exam. No abdominal or pelvic lymphadenopathy is detected. Impression: 1. Trace left pleural effusion. 2. Constipation and uncomplicated diverticulosis. 3. No acute feature in the abdomen or pelvis is identified. PQRS Compliance Statement: One or more of the following individualized dose reduction techniques were utilized for this examination: 1. Automated exposure control 2. Adjustment of the mA and/or kV according to patient size 3. Use of iterative reconstruction technique
[2016-08-31] MEDS ORDERED: TOBRAMYCIN PER PHARMACY MC PRN ×2 (18:15)
[2016-08-31] MEDS ORDERED: VANCOMYCIN PER PHARMACY MC PRN (18:15)
[2016-08-31] MEDS ORDERED: VANCOMYCIN 1.75 GM in IV NORMAL SALINE 500ML BAG 500 ML IV ONE (18:30)
[2016-08-31] MEDS ORDERED: NORMAL SALINE IV ONE (18:30)
[2016-08-31] MEDS ORDERED: TOBRAMYCIN SULFATE IV ONE (18:30)
[2016-08-31 19:00] VITALS: BP 112/53
[2016-08-31 20:09] LABS: OBC FLU VALID
--- NOTE | 2016-08-31 20:26 | PDOC ---
PROGRESS NOTES Subjective Subjective Patient was in dialysis at the time that I went to see him Objective Objective Vital Signs Date Time Temp Pulse Resp B/P Pulse Ox O2 Delivery O2 Flow Rate FiO2 08/31/16 20:03 Nasal Cannula 2.0 08/31/16 19:00 99.9 100 18 112/53 93 99.9 Intake and Output 08/31/16 07:00 Intake Total 940 ml Output Total 950 ml Balance -10 ml Intake Oral 940 ml Output Urine Total 0 ml Emesis 950 ml # Voids 1 Assessment Assessment No cardiac issues reported. I agree with present plan. Problems Medical Problems: (1) Retroperitoneal mass Status: Acute Comment Review of Relevant I have reviewed the following items nicole (where applicable) has been applied. Labs Laboratory Tests Test 08/29/16 20:59 08/30/16 07:24 08/30/16 09:10 08/30/16 11:24 Glucose (Fingerstick) 214mg/dL (70-99) 140mg/dL (70-99) 225mg/dL (70-99) Sodium Level 139mmol/L (136-145) Potassium Level 5.2mmol/L (3.5-5.1) Chloride Level 100mmol/L (98-107) Carbon Dioxide Level 25mmol/L (21-32) Anion Gap 14 (6-14) Blood Urea Nitrogen 52mg/dL (8-26) Creatinine 7.6mg/dL (0.7-1.3) Estimated GFR (Cockcroft-Gault) 7.2 Glucose Level 202mg/dL (70-99) Calcium Level 7.9mg/dL (8.5-10.1) Phosphorus Level 4.1mg/dL (2.6-4.7) Magnesium Level 2.0mg/dL (1.8-2.4) Albumin 2.7g/dL (3.4-5.0) Test 08/30/16 16:54 08/30/16 20:43 08/31/16 05:05 08/31/16 08:11 Glucose (Fingerstick) 182mg/dL (70-99) 155mg/dL (70-99) 66mg/dL (70-99) Sodium Level 139mmol/L (136-145) Potassium Level 5.0mmol/L (3.5-5.1) Chloride Level 99mmol/L (98-107) Carbon Dioxide Level 26mmol/L (21-32) Anion Gap 14 (6-14) Blood Urea Nitrogen 66mg/dL (8-26) Creatinine 9.2mg/dL (0.7-1.3) Estimated GFR (Cockcroft-Gault) 5.8 Glucose Level 80mg/dL (70-99) Calcium Level 8.3mg/dL (8.5-10.1) Phosphorus Level 4.5mg/dL (2.6-4.7) Albumin 2.6g/dL (3.4-5.0) Test 08/31/16 16:46 08/31/16 19:30 Glucose (Fingerstick) 126mg/dL (70-99) Influenza Type A Antigen Negative (NEGATIVE) Influenza Type B Antigen Negative (NEGATIVE) Laboratory Tests Test 08/30/16 20:43 08/31/16 05:05 08/31/16 08:11 08/31/16 16:46 Glucose (Fingerstick) 155mg/dL (70-99) 66mg/dL (70-99) 126mg/dL (70-99) Sodium Level 139mmol/L (136-145) Potassium Level 5.0mmol/L (3.5-5.1) Chloride Level 99mmol/L (98-107) Carbon Dioxide Level 26mmol/L (21-32) Anion Gap 14 (6-14) Blood Urea Nitrogen 66mg/dL (8-26) Creatinine 9.2mg/dL (0.7-1.3) Estimated GFR (Cockcroft-Gault) 5.8 Glucose Level 80mg/dL (70-99) Calcium Level 8.3mg/dL (8.5-10.1) Phosphorus Level 4.5mg/dL (2.6-4.7) Albumin 2.6g/dL (3.4-5.0) Test 08/31/16 19:30 Influenza Type A Antigen Negative (NEGATIVE) Influenza Type B Antigen Negative (NEGATIVE) Medications Current Medications Ondansetron HCl (Zofran) 4 mg PRN Q6HRS PRN IV Nausea; Start 08/25/16 at 07:00 ; Stop 08/26/16 at 06:59; Status DC Fentanyl Citrate (Fentanyl 2ml Vial) 25 mcg PRN Q5MIN PRN IV MILD PAIN Last administered on 08/25/16 17:41; Start 08/25/16 at 07:00; Stop 08/25/16 at 23:18 ; Status DC Fentanyl Citrate (Fentanyl 2ml Vial) 50 mcg PRN Q5MIN PRN IV MODERATE PAIN; Start 08/25/16 at 07:00; Stop 08/25/16 at 23:18; Status DC Morphine Sulfate 1 mg 1 mg PRN Q10MIN PRN IV SEVERE PAIN; Start 08/25/16 at 07: 00; Stop 08/25/16 at 23:18; Status DC Lactated Ringer's (Iv Lactated Ringers) 1,000 ml @ 0 mls/hr Q0M IV ; Start at 07:00; Stop 08/25/16 at 18:59; Status DC Lidocaine HCl 2 ml 1X PRN PRN ID IV START; Start 08/25/16 at 07:00; Stop at 06:59; Status DC Hydromorphone HCl (Dilaudid) 0.5 mg PRN Q10MIN PRN IV SEVERE PAIN, Second choice; Start 08/25/16 at 07:00; Stop 08/25/16 at 23:18; Status DC Prochlorperazine Edisylate 5 mg 5 mg PACU PRN PRN IV NAUSEA; Start 08/25/16 at 07:00; Stop 08/25/16 at 23:18; Status DC Cefazolin Sodium/ Dextrose 50 ml @ 100 mls/hr 1X PREOP PRN IV PRIOR TO PROCEDURE Last administered on 08/25/16 08:30; Start 08/25/16 at 06:00; Stop at 18:00; Status DC Sodium Chloride (Iv Sodium Chloride 0.9% 1000ml Bag) 1,000 ml @ 0 mls/hr 1X ONCE IV Last administered on 08/25/16 06:48; Start 08/25/16 at 06:45; Stop at 06:51; Status DC Scopolamine (Transderm-Scop) 1 patch 1X ONCE TD Last administered on 07:03; Start 08/25/16 at 07:00; Stop 08/25/16 at 07:01; Status DC Dexamethasone Sodium Phosphate (Decadron) 4 mg ONCE ONCE IV Last administered on 08/25/16t 07:05; Start 08/25/16 at 07:00; Stop 08/25/16 at 07:01; Status DC Ondansetron HCl (Zofran) 4 mg 1X ONCE IV Last administered on 08/25/16t 07:03 ; Start 08/25/16 at 07:00; Stop 08/25/16 at 07:01; Status DC Sevoflurane (Ultane) 60 ml STK-MED ONCE IH ; Start 08/25/16 at 07:10; Stop 08/25 at 07:11; Status DC Fentanyl Citrate 250 mcg 250 mcg STK-MED ONCE .ROUTE ; Start 08/25/16 at 07:11; Stop 08/25/16 at 07:12; Status DC Propofol (Diprivan) 20 ml @ As Directed STK-MED ONCE IV ; Start 08/25/16 at 07: 11; Stop 08/25/16 at 07:12; Status DC Lidocaine HCl 100 mg STK-MED ONCE .ROUTE ; Start 08/25/16 at 07:11; Stop at 07:12; Status DC Ondansetron HCl (Zofran) 4 mg STK-MED ONCE .ROUTE ; Start 08/25/16 at 07:11; Stop 08/25/16 at 07:12; Status DC Dexamethasone Sodium Phosphate (Decadron) 20 mg STK-MED ONCE .ROUTE ; Start at 07:11; Stop 08/25/16 at 07:12; Status DC Etomidate (Amidate) 20 mg STK-MED ONCE IV ; Start 08/25/16 at 07:11; Stop at 07:12; Status DC Rocuronium [place] (Zemuron) 50 mg STK-MED ONCE .ROUTE ; Start 08/25/16 at 07:30 ; Stop 08/25/16 at 07:31; Status DC Ketamine HCl 500 mg STK-MED ONCE .ROUTE ; Start 08/25/16 at 09:54; Stop at 09:55; Status DC Rocuronium [place] (Zemuron) 50 mg STK-MED ONCE .ROUTE ; Start 08/25/16 at 11:00 ; Stop 08/25/16 at 11:01; Status DC Cellulose 1 each STK-MED ONCE .ROUTE Last administered on 08/25/16 11:15; Start 08/25/16 at 11:14; Stop 08/25/16 at 11:15; Status DC Glycopyrrolate (Robinul) 1 mg STK-MED ONCE .ROUTE ; Start 08/25/16 at 11:25; Stop 08/25/16 at 11:26; Status DC Neostigmine Methylsulfate 5 mg STK-MED ONCE .ROUTE ; Start 08/25/16 at 11:25; Stop 08/25/16 at 11:26; Status DC Enoxaparin Sodium (Lovenox 30mg Syringe) 30 mg QHS SQ Last administered on 08/25 21:24; Start 08/25/16 at 21:00; Stop 08/26/16 at 14:21; Status DC Sodium Chloride 3 ml 3 ml QSHIFT PRN IV AFTER MEDS AND BLOOD DRAWS; Start 08/25 at 11:30 Lactated Ringer's (Iv Lactated Ringers) 1,000 ml @ 100 mls/hr Q10H IV ; Start 08/25/16 at 11:30; Stop 08/26/16 at 09:11; Status DC Acetaminophen/ Hydrocodone Bitart (Lortab 5/325) 1 tab PRN Q4HRS PRN PO MILD PAIN Last administered on 08/31/16 06:07; Start 08/25/16 at 11:30 Hydromorphone HCl (Dilaudid) 0.2 mg PRN Q1HR PRN IV PAIN Last administered on 17:20; Start 08/25/16 at 11:30 Docusate Sodium (Colace) 100 mg BID PO Last administered on 08/30/16 23:40; Start 08/25/16 at 21:00 Ondansetron HCl (Zofran) 4 mg PRN Q6HRS PRN IV NAUESA, 1ST CHOICE Last administered on 08/31/16 08:39; Start 08/25/16 at 11:30 Insulin Human Regular 3 unit 3 unit 1X ONCE IV Last administered on 08/25/16 12:49; Start 08/25/16 at 12:45; Stop 08/25/16 at 12:46; Status DC Magnesium Sulfate/ Dextrose (Magnesium Sulfate PREMIX 2GM) 50 ml @ 25 mls/hr PRN DAILY PRN IV for Mag < 1.7 on am labs; Start 08/25/16 at 17:45 Hydralazine HCl 20 mg 20 mg PRN Q4HRS PRN IVP ELEVATED BP, SEE COMMENTS; Start 08/25/16 at 17:45 Sodium Chloride 1,000 ml @ 1,000 mls/hr Q1H PRN IV hypotension; Start 08/26/16 at 09:00; Stop 08/26/16 at 14:59; Status DC Sodium Chloride (Iv Sodium Chloride 0.9% 1000ml Bag) 1,000 ml @ 400 mls/hr Q2H30M PRN IV PATENCY; Start 08/26/16 at 09:00; Stop 08/26/16 at 20:59; Status DC Info (PHARMACY MONITORING -- do not chart) 1 each PRN DAILY PRN MC SEE COMMENTS ; Start 08/26/16 at 10:00 Heparin Sodium (Porcine) 5000 unit 5,000 unit Q8HRS SQ Last administered on 17:41; Start 08/26/16 at 22:00 Magnesium Sulfate/ Dextrose (Magnesium Sulfate PREMIX 2GM) 50 ml @ 25 mls/hr 1X ONCE IV Last administered on 08/26/16 21:34; Start 08/26/16 at 21:30; Stop 08/26/16 at 23:29; Status DC Allopurinol (Zyloprim) 300 mg DAILY PO Last administered on 08/27/16 16:06; Start 08/27/16 at 16:00; Stop 08/28/16 at 11:11; Status DC Aspirin (Children'S Aspirin) 81 mg DAILY PO Last administered on 08/30/16 09: 00; Start 08/27/16 at 16:00 Calcium Acetate (Phoslo) 667 mg TIDWMEALS PO Last administered on 08/30/16 16: 57; Start 08/27/16 at 17:00 Digoxin (Lanoxin) 125 mcg DAILY PO Last administered on 08/31/16 08:33; Start 08/27/16 at 16:00 Folic Acid/ Multivitamins/Vit B12 (Nephro-Mouna) 1 tab DAILY PO Last administered on 08/30/16 09:00; Start 08/27/16 at 16:00 Gabapentin (Neurontin) 100 mg BID PO Last administered on 08/30/16 23:41; Start 08/27/16 at 21:00 Nitroglycerin (Nitrostat) 0.4 mg PRN Q5MIN PRN SL CHEST PAIN; Start 08/27/16 at 15:30 Oxycodone/ Acetaminophen (Percocet 7.5/ 325) 1 tab PRN TID PRN PO MODERATE PAIN ; Start 08/27/16 at 15:30 Polyethylene Glycol (miraLAX PACKET) 17 gm PRN BID PRN PO CONSTIPATION Last administered on 08/29/16 08:58; Start 08/28/16 at 09:00 Ranolazine (Ranexa) 500 mg DAILY PO Last administered on 08/31/16 08:51; Start 08/27/16 at 16:00 Tamsulosin HCl (Flomax) 0.4 mg QHS PO Last administered on 08/30/16 23:41; Start 08/27/16 at 21:00 Insulin Detemir (Levemir) 30 units BIDWMEALS SQ Last administered on 08/27/16 17:34; Start 08/27/16 at 17:00; Stop 08/28/16 at 09:01; Status DC Albuterol Sulfate (Ventolin Neb Soln) 2.5 mg RTQID NEB Last administered on 20:02; Start 08/27/16 at 16:00 Budesonide 0.5 mg 0.5 mg RTBID NEB Last administered on 08/31/16 20:02; Start 08/27/16 at 20:00 Sodium Chloride 1,000 ml @ 1,000 mls/hr Q1H PRN IV hypotension; Start 08/28/16 at 07:46; Stop 08/28/16 at 13:45; Status DC Albumin Human (Albuminar) 200 ml @ 200 mls/hr 1X PRN PRN IV Hypotension; Start 08/28/16 at 08:00; Stop 08/28/16 at 13:59; Status DC Diphenhydramine HCl 25 mg 25 mg 1X PRN PRN IV ITCHING; Start 08/28/16 at 08:00 ; Stop 08/29/16 at 07:59; Status DC Sodium Chloride (Iv Sodium Chloride 0.9% 1000ml Bag) 1,000 ml @ 400 mls/hr Q2H30M PRN IV PATENCY; Start 08/28/16 at 07:46; Stop 08/28/16 at 19:45; Status DC Info (PHARMACY MONITORING -- do not chart) 1 each PRN DAILY PRN MC SEE COMMENTS ; Start 08/28/16 at 08:00; Stop 08/28/16 at 08:00; Status DC Info (PHARMACY MONITORING -- do not chart) 1 each PRN DAILY PRN MC SEE COMMENTS ; Start 08/28/16 at 08:00; Stop 08/28/16 at 08:00; Status DC Lidocaine HCl (Xylocaine-Mpf 1% Vial) 2 ml 1X ONCE INJ Last administered on 08:51; Start 08/28/16 at 08:00; Stop 08/28/16 at 08:01; Status DC Insulin Detemir (Levemir) 20 units BIDWMEALS SQ Last administered on 08/28/16 16:33; Start 08/28/16 at 17:00; Stop 08/29/16 at 12:14; Status DC Allopurinol (Zyloprim) 300 mg Q48H PO Last administered on 08/29/16 08:59; Start 08/29/16 at 09:00 Dextrose 12.5 gm PRN Q15MIN PRN IV SEE COMMENTS; Start 08/28/16 at 11:30 Insulin Detemir (Levemir) 16 units BIDWMEALS SQ ; Start 08/29/16 at 17:00; Status UNV Insulin Detemir (Levemir) 16 units 1X ONCE SQ Last administered on 08/29/16 12:17; Start 08/29/16 at 12:15; Stop 08/29/16 at 12:19; Status DC Insulin Detemir (Levemir) 16 units BIDWMEALS SQ Last administered on 08/30/16 17:03; Start 08/29/16 at 17:00; Stop 08/31/16 at 08:30; Status DC Budesonide (Pulmicort) 0.5 mg 1X ONCE NEB ; Start 08/31/16 at 00:15; Stop 08/31 at 00:16; Status DC Albuterol/ Ipratropium (Duoneb) 3 ml 1X ONCE NEB Last administered on 00:08; Start 08/31/16 at 00:15; Stop 08/31/16 at 00:16; Status DC Insulin Detemir 14 units 14 units BIDWMEALS SQ Last administered on 08/31/16 17:42; Start 08/31/16 at 09:00 Sodium Chloride (Iv Sodium Chloride 0.9% 1000ml Bag) 1,000 ml @ 1,000 mls/hr Q1H PRN IV hypotension; Start 08/31/16 at 08:41; Stop 08/31/16 at 14:40; Status DC Diphenhydramine HCl (Benadryl) 25 mg 1X PRN PRN IV ITCHING; Start 08/31/16 at 08:45; Stop 08/31/16 at 18:00; Status DC Diphenhydramine HCl (Benadryl) 25 mg 1X PRN PRN IV ITCHING; Start 08/31/16 at 08:45; Stop 08/31/16 at 18:00; Status DC Labetalol HCl 10 mg 10 mg PRN Q1HR PRN IVP SBP > 180; Start 08/31/16 at 08:45; Stop 08/31/16 at 18:00; Status DC Sodium Chloride (Iv Sodium Chloride 0.9% 1000ml Bag) 1,000 ml @ 400 mls/hr Q2H30M PRN IV PATENCY; Start 08/31/16 at 08:41; Stop 08/31/16 at 20:40 Info (PHARMACY MONITORING -- do not chart) 1 each PRN DAILY PRN MC SEE COMMENTS ; Start 08/31/16 at 08:45; Status Cancel Iohexol (Omnipaque 240 Mg/ml) 50 ml 1X ONCE PO Last administered on 08/31/16 16:16; Start 08/31/16 at 15:30; Stop 08/31/16 at 15:31; Status DC Acetaminophen 500 mg 500 mg PRN Q6HRS PRN PO MILD PAIN / TEMP Last administered on 08/31/16 16:03; Start 08/31/16 at 16:00 Piperacillin Sod/ Tazobactam Sod/ Sodium Chloride (Zosyn/Iv Sodium Chloride 0.9 % 50ml) 50 ml @ 100 mls/hr Q8HRS IV ; Start 08/31/16 at 22:00 Vancomycin HCl (Vanco Per Pharmacy) 1 each PRN DAILY PRN MC SEE COMMENTS; Start 08/31/16 at 18:15 Tobramycin Sulfate 1 each 1 each PRN DAILY PRN MC SEE COMMENTS; Start 08/31/16 at 18:15 Vancomycin HCl/ Sodium Chloride (Iv Sodium Chloride 0.9% 500ml Bag) 500 ml @ 250 mls/hr 1X ONCE IV ; Start 08/31/16 at 18:30; Stop 08/31/16 at 20:29 Vancomycin HCl 1 each 1 each PRN DAILY PRN MC SEE COMMENTS; Start 08/31/16 at 18:15; Status UNV Piperacillin Sod/ Tazobactam Sod/ Sodium Chloride (Zosyn/Iv Sodium Chloride 0.9 % 50ml) 50 ml @ 100 mls/hr Q8HRS IV ; Start 08/31/16 at 22:00; Status UNV Tobramycin Sulfate (Nebcin Per Pharmacy) 1 each PRN DAILY PRN MC SEE COMMENTS; Start 08/31/16 at 18:15; Status UNV Vancomycin HCl 1 each 1 each 1X ONCE MC ; Start 09/02/16 at 05:00; Stop at 05:01 Tobramycin Sulfate/Sodium Chloride (Nebcin/Iv Sodium Chloride 0.9% 50ml) 53.75 ml @ 104 mls/hr 1X ONCE IV Last administered on 08/31/16t 18:55; Start at 18:30; Stop 08/31/16 at 19:01; Status DC Tobramycin Sulfate 1 each 1X ONCE MC ; Start 09/02/16 at 05:00; Stop 09/02/16 at 05:01 Active Scripts Active Reported Gabapentin 100 Mg Capsule 100 Mg PO BID Ranexa (Ranolazine) 500 Mg Tab.er.12h 1 Tab PO DAILY Phoslo (Calcium Acetate) 667 Mg Capsule 667 Mg PO TIDWMEALS Polyethylene Glycol 3350 255 Gm Powder 17 Gm PO DAILY PRN Anoro Ellipta 62.5-25 Mcg Inh (Umeclidinium Brm/Vilanterol Tr) 1 Each Disk.w.dev 1 Each IH DAILY Clopidogrel (Clopidogrel Bisulfate) 75 Mg Tablet 1 Tab PO DAILY Percocet 7.5-325 Mg Tablet (Oxycodone/Acetaminophen) 1 Each Tablet 1 Tab PO TID PRN Dialyvite 800 Tablet (Folic Acid/Vitamin B Comp W-C) 0.8 Mg Tablet 0.8 Mg PO DAILY NITROGLYCERIN SubLingual (Nitroglycerin) 0.4 Mg Tab.subl 0.4 Mg SL PRN Humulin 70-30 Vial (Hum Insulin Nph/Reg Insulin Hm) 100 Unit/1 Ml Vial 30 Unit SQ BIDWMEALS Allopurinol 300 Mg Tablet 300 Mg PO DAILY Pepcid (Famotidine) 20 Mg Tablet 20 Mg PO QHS Lanoxin (Digoxin) 125 Mcg Tablet 125 Mcg PO DAILY Flomax (Tamsulosin Hcl) 0.4 Mg Cap.er.24h 0.4 Mg PO HS Aspirin 81 Mg Tab.chew 81 Mg PO DAILY Vitals/I & O Vital Sign - Last 24 Hours 08/30/16 08/31/16 08/31/16 08/31/16 23:45 00:06 02:58 07:00 Temp 99.5 98.6 98.2 99.5 98.6 98.2 Pulse 78 62 68 Resp 18 18 16 B/P 140/45 142/55 135/48 Pulse Ox 98 100 99 95 O2 Delivery Nasal Cannula Nasal Cannula Nasal Cannula Nasal Cannula O2 Flow Rate 4.0 2.0 4.0 4.0 08/31/16 08/31/16 08/31/16 08/31/16 07:48 08:00 08:33 08:51 Pulse 62 62 B/P 142/55 142/55 Pulse Ox 100 O2 Delivery Nasal Cannula Nasal Cannula O2 Flow Rate 2.0 2.0 08/31/16 08/31/16 08/31/16 08/31/16 11:50 15:00 16:38 17:37 Temp 102.5 102.2 102.5 102.2 Pulse 90 Resp 18 B/P 132/49 Pulse Ox 94 O2 Delivery Nasal Cannula Nasal Cannula Nasal Cannula O2 Flow Rate 2.0 4.0 2.0 08/31/16 08/31/16 19:00 20:03 Temp 99.9 99.9 Pulse 100 Resp 18 B/P 112/53 Pulse Ox 93 O2 Delivery Nasal Cannula Nasal Cannula O2 Flow Rate 4.0 2.0 Intake and Output 08/30/16 08/30/16 08/31/16 15:00 23:00 07:00 Intake Total 820 ml 120 ml Output Total 950 ml Balance -130 ml 120 ml LEXI ALTAMIRANO MD Aug 31, 2016 20:26
[2016-08-31] MEDS: TAMSULOSIN 0.4 MG CAP.ER.24H. PO SCH (21:30)
[2016-08-31] MEDS ORDERED: PIPERACILLIN/TAZOBACTAM 2.25 GM in IV NORMAL SALINE 50ML 50 ML IV SCH (22:00)
[2016-08-31] MEDS: PIPERACILLIN/TAZOBACTAM 2.25 GM in IV NORMAL SALINE 50ML 50 ML IV SCH (23:07)
[2016-08-31 23:30] VITALS: BP 120/52
[2016-09-01] VITALS (7 sets, daily range): BP systolic 92–112; BP diastolic 37–51
[2016-09-01 05:02] LABS: ALBUMIN 2.4 g/dL (3.4-5.0); CALCIUM 8.1 mg/dL (8.5-10.1); CREATININE 5.2 mg/dL (0.7-1.3); GFR 11.1; POTASSIUM 5.4 mmol/L (3.5-5.1)
[2016-09-01] MEDS: PIPERACILLIN/TAZOBACTAM 2.25 GM in IV NORMAL SALINE 50ML 50 ML IV SCH ×3 (06:05→22:02)
[2016-09-01] MEDS: HEPARIN PF for SUB-Q USE 5,000 UNIT/0.5 ML VIAL. SQ SCH ×3 (06:10→22:12)
[2016-09-01] MEDS: ALBUTEROL SULFATE 2.5 MG/3 ML NEBU. NEB SCH ×4 (06:55→20:23)
[2016-09-01] MEDS: BUDESONIDE 0.5 MG/2 ML NEBU NEB SCH ×2 (06:55→20:23)
[2016-09-01 08:02] LABS: BASO % 0 % (0-3); EOS % 0 % (0-3); HEMATOCRIT 30.8 % (39.0-53.0); HEMOGLOBIN 9.9 g/dL (13.0-17.5); LYMPH # 1.1 x10^3/uL (1.0-4.8); LYMPH % 8 % (24-48); MEAN CORPUSCULAR HEMOGLOBIN 33 pg (25-35); MEAN CORPUSCULAR HGB CONC 32 g/dL (31-37); MEAN CORPUSCULAR VOLUME 101 fL (79-100); MONO % 8 % (0-9); NEUT % 83 % (31-73); PLATELET COUNT 80 x10^3/uL (140-400); RED BLOOD COUNT 3.04 x10^6/uL (4.30-5.70); RED CELL DISTRIBUTION WIDTH 15.1 % (11.5-14.5); WHITE BLOOD COUNT 12.9 x10^3/uL (4.0-11.0)
[2016-09-01] MEDS: CALCIUM ACETATE 667 MG CAPSULE PO SCH ×3 (08:45→16:58)
[2016-09-01] MEDS: DOCUSATE SODIUM 100 MG CAPSULE PO SCH ×2 (08:45→22:01)
[2016-09-01] MEDS: ASPIRIN 81 MG TAB.CHEW PO SCH (08:45)
--- NOTE | 2016-09-01 08:45 | PDOC ---
Provider Note Provider Note spiked temps 09/01, no focasl signs- ct ok- cultures pending- on zosyn/vanc- glucose ok SANDEEP YANG MD Sep 01, 2016 08:45
[2016-09-01] MEDS: RANOLAZINE 500 MG TAB.ER.12H PO SCH (08:46)
[2016-09-01] MEDS: FOLIC/VIT B COMP W-C (RENAL) TABLET. PO SCH (08:46)
[2016-09-01] MEDS: GABAPENTIN 100 MG CAPSULE. PO SCH ×2 (08:46→22:01)
[2016-09-01] MEDS: DIGOXIN 125 MCG TABLET PO SCH (08:47)
[2016-09-01] MEDS: HYDROCODONE/APAP 5/325MG TABLET. PO PRN ×2 (08:49→15:02)
[2016-09-01] MEDS: INSULIN DETEMIR 300 UNITS/3 ML INSULN.PEN. SQ SCH ×2 (08:54→18:07)
--- NOTE | 2016-09-01 09:37 | PDOC ---
Infectious Disease Note ROS ROS GEN: Denies fevers, chills, sweats HEENT: Denies blurred vision, sore throat CV: Denies chest pain RESP: Denies shortness of air, cough GI: Denies n/v/d NEURO: Denies confusion, dizziness MSK: Denies weakness, joint pain/swelling Vital Sign Vital Signs Vital Signs Date Time Temp Pulse Resp B/P Pulse Ox O2 Delivery O2 Flow Rate FiO2 09/01/16 08:49 96 Nasal Cannula 2.0 09/01/16 08:47 63 93/37 09/01/16 07:00 98.0 16 98.0 Physical Exam PHYSICAL EXAM GENERAL: NAD, Alert HEENT: PERRL, OC/OP NECK: Supple, no JVD, no LN LUNGS: Clear HEART: S1S2, no gallop, no murmur ABD: Soft, NT, no organomegaly, no rebound EXT: No edema, no cyanosis ROLLER LEVELER: Alert, oriented x 3, no focal neurologic deficit SKIN: No rash IV: ok Labs Lab Laboratory Tests Test 08/31/16 16:46 08/31/16 19:30 08/31/16 20:21 09/01/16 04:00 Glucose (Fingerstick) 126mg/dL (70-99) 179mg/dL (70-99) Influenza Type A Antigen Negative (NEGATIVE) Influenza Type B Antigen Negative (NEGATIVE) White Blood Count 12.9x10^3/uL (4.0-11.0) Red Blood Count 3.04x10^6/uL (4.30-5.70) Hemoglobin 9.9g/dL (13.0-17.5) Hematocrit 30.8% (39.0-53.0) Mean Corpuscular Volume 101fL (79-100) Mean Corpuscular Hemoglobin 33pg (25-35) Mean Corpuscular Hemoglobin Concent 32g/dL (31-37) Red Cell Distribution Width 15.1% (11.5-14.5) Platelet Count 80x10^3/uL (140-400) Neutrophils (%) (Auto) 83% (31-73) Lymphocytes (%) (Auto) 8% (24-48) Monocytes (%) (Auto) 8% (0-9) Eosinophils (%) (Auto) 0% (0-3) Basophils (%) (Auto) 0% (0-3) Neutrophils # (Auto) 10.7x10^3uL (1.8-7.7) Lymphocytes # (Auto) 1.1x10^3/uL (1.0-4.8) Monocytes # (Auto) 1.1x10^3/uL (0.0-1.1) Eosinophils # (Auto) 0.0x10^3/uL (0.0-0.7) Basophils # (Auto) 0.0x10^3/uL (0.0-0.2) Sodium Level 135mmol/L (136-145) Potassium Level 5.4mmol/L (3.5-5.1) Chloride Level 97mmol/L (98-107) Carbon Dioxide Level 27mmol/L (21-32) Anion Gap 11 (6-14) Blood Urea Nitrogen 33mg/dL (8-26) Creatinine 5.2mg/dL (0.7-1.3) Estimated GFR (Cockcroft-Gault) 11.1 Glucose Level 180mg/dL (70-99) Calcium Level 8.1mg/dL (8.5-10.1) Phosphorus Level 4.0mg/dL (2.6-4.7) Albumin 2.4g/dL (3.4-5.0) Test 09/01/16 08:38 Glucose (Fingerstick) 187mg/dL (70-99) Objective Assessment Fever Leukocytosis Abd pain - better with BM this am CKD on HD Left foot ulcer - does not look infected. Pacemaker H/o C-diff December 2013 Plan Plan of Care Ordered Flu screen/blood cults had been ordered 08/31 Cont Vanc/Zosy/Tobra times one 08/31 Add Procalcitonin this am F/u labs/cults and response Thank you # [id number] ZACHARY MOSQUERA MD Sep 01, 2016 09:37
--- NOTE | 2016-09-01 10:28 | PDOC ---
Renal-Progress Notes Subjective Notes Notes SOME INCISION PAIN History of Present Illness Hx of present illness NO CHANGE Vitals Vitals Vital Signs Date Time Temp Pulse Resp B/P Pulse Ox O2 Delivery O2 Flow Rate FiO2 09/01/16 08:49 96 Nasal Cannula 2.0 09/01/16 08:47 63 93/37 09/01/16 07:00 98.0 16 98.0 Weight Weight [ ] I.O. Intake and Output Intake and Output 09/01/16 07:00 Intake Total 1677 ml Output Total 300 ml Balance 1377 ml Intake Oral 1000 ml Other 677 ml Output Urine Total 0 ml Emesis 300 ml # Voids 2 Labs Labs Laboratory Tests Test 08/31/16 16:46 08/31/16 19:30 08/31/16 20:21 09/01/16 04:00 Glucose (Fingerstick) 126mg/dL (70-99) 179mg/dL (70-99) Influenza Type A Antigen Negative (NEGATIVE) Influenza Type B Antigen Negative (NEGATIVE) White Blood Count 12.9x10^3/uL (4.0-11.0) Red Blood Count 3.04x10^6/uL (4.30-5.70) Hemoglobin 9.9g/dL (13.0-17.5) Hematocrit 30.8% (39.0-53.0) Mean Corpuscular Volume 101fL (79-100) Mean Corpuscular Hemoglobin 33pg (25-35) Mean Corpuscular Hemoglobin Concent 32g/dL (31-37) Red Cell Distribution Width 15.1% (11.5-14.5) Platelet Count 80x10^3/uL (140-400) Neutrophils (%) (Auto) 83% (31-73) Lymphocytes (%) (Auto) 8% (24-48) Monocytes (%) (Auto) 8% (0-9) Eosinophils (%) (Auto) 0% (0-3) Basophils (%) (Auto) 0% (0-3) Neutrophils # (Auto) 10.7x10^3uL (1.8-7.7) Lymphocytes # (Auto) 1.1x10^3/uL (1.0-4.8) Monocytes # (Auto) 1.1x10^3/uL (0.0-1.1) Eosinophils # (Auto) 0.0x10^3/uL (0.0-0.7) Basophils # (Auto) 0.0x10^3/uL (0.0-0.2) Sodium Level 135mmol/L (136-145) Potassium Level 5.4mmol/L (3.5-5.1) Chloride Level 97mmol/L (98-107) Carbon Dioxide Level 27mmol/L (21-32) Anion Gap 11 (6-14) Blood Urea Nitrogen 33mg/dL (8-26) Creatinine 5.2mg/dL (0.7-1.3) Estimated GFR (Cockcroft-Gault) 11.1 Glucose Level 180mg/dL (70-99) Calcium Level 8.1mg/dL (8.5-10.1) Phosphorus Level 4.0mg/dL (2.6-4.7) Albumin 2.4g/dL (3.4-5.0) Procalcitonin 24.92ng/mL (0.00-0.10) Test 09/01/16 08:38 Glucose (Fingerstick) 187mg/dL (70-99) Review of Systems Constitutional: yes: alert, oriented, weakness Ears/Nose/Throat: Yes: no symptom reported Eyes: Yes: no symptom reported Pulmonary: Yes no symptom reported Cardiovascular: Yes no symptom reported Gastrointestional: Yes: no symptom reported Genitourinary: Yes: no symptom reported Skin: Yes no symptom reported Physical Exam General Appearance: no apparent distress Skin: warm Respiratory: bilateral CTA Heart: S1S2, RRR Abdomen: soft, bowel sounds present Extremities: pulses present Neurology: alert Musculoskeletal: Muscle atrophy, Weakness Assessment Assessment IMP ESRD ANEMIA S/P RIGHT NEPHRECTOMY PLAN HD TOMORROW START NAVIN FOWLER MD Sep 01, 2016 10:28
--- NOTE | 2016-09-01 10:34 | PDOC ---
PROGRESS NOTES Subjective Subjective Patient hypotensive since spiking a fever last night. Admits to some dizziness and confusion at the time and has no appetite. Denies chest pain, dyspnea or other cardiac complaints. Objective Objective Vital Signs Date Time Temp Pulse Resp B/P Pulse Ox O2 Delivery O2 Flow Rate FiO2 09/01/16 08:49 96 Nasal Cannula 2.0 09/01/16 08:47 63 93/37 09/01/16 07:00 98.0 16 98.0 Intake and Output 09/01/16 07:00 Intake Total 1677 ml Output Total 300 ml Balance 1377 ml Intake Oral 1000 ml Other 677 ml Output Urine Total 0 ml Emesis 300 ml # Voids 2 Physical Exam Physical Exam No significant changes in cardiac exam. Assessment Assessment Problems Medical Problems: (1) Retroperitoneal mass Status: Acute Plan Plan of Care Agree with current plan of care. Comment Review of Relevant I have reviewed the following items nicole (where applicable) has been applied. Labs Laboratory Tests Test 08/30/16 11:24 08/30/16 16:54 08/30/16 20:43 08/31/16 05:05 Glucose (Fingerstick) 225mg/dL (70-99) 182mg/dL (70-99) 155mg/dL (70-99) Sodium Level 139mmol/L (136-145) Potassium Level 5.0mmol/L (3.5-5.1) Chloride Level 99mmol/L (98-107) Carbon Dioxide Level 26mmol/L (21-32) Anion Gap 14 (6-14) Blood Urea Nitrogen 66mg/dL (8-26) Creatinine 9.2mg/dL (0.7-1.3) Estimated GFR (Cockcroft-Gault) 5.8 Glucose Level 80mg/dL (70-99) Calcium Level 8.3mg/dL (8.5-10.1) Phosphorus Level 4.5mg/dL (2.6-4.7) Albumin 2.6g/dL (3.4-5.0) Test 08/31/16 08:11 08/31/16 16:46 08/31/16 19:30 08/31/16 20:21 Glucose (Fingerstick) 66mg/dL (70-99) 126mg/dL (70-99) 179mg/dL (70-99) Influenza Type A Antigen Negative (NEGATIVE) Influenza Type B Antigen Negative (NEGATIVE) Test 09/01/16 04:00 09/01/16 08:38 White Blood Count 12.9x10^3/uL (4.0-11.0) Red Blood Count 3.04x10^6/uL (4.30-5.70) Hemoglobin 9.9g/dL (13.0-17.5) Hematocrit 30.8% (39.0-53.0) Mean Corpuscular Volume 101fL (79-100) Mean Corpuscular Hemoglobin 33pg (25-35) Mean Corpuscular Hemoglobin Concent 32g/dL (31-37) Red Cell Distribution Width 15.1% (11.5-14.5) Platelet Count 80x10^3/uL (140-400) Neutrophils (%) (Auto) 83% (31-73) Lymphocytes (%) (Auto) 8% (24-48) Monocytes (%) (Auto) 8% (0-9) Eosinophils (%) (Auto) 0% (0-3) Basophils (%) (Auto) 0% (0-3) Neutrophils # (Auto) 10.7x10^3uL (1.8-7.7) Lymphocytes # (Auto) 1.1x10^3/uL (1.0-4.8) Monocytes # (Auto) 1.1x10^3/uL (0.0-1.1) Eosinophils # (Auto) 0.0x10^3/uL (0.0-0.7) Basophils # (Auto) 0.0x10^3/uL (0.0-0.2) Sodium Level 135mmol/L (136-145) Potassium Level 5.4mmol/L (3.5-5.1) Chloride Level 97mmol/L (98-107) Carbon Dioxide Level 27mmol/L (21-32) Anion Gap 11 (6-14) Blood Urea Nitrogen 33mg/dL (8-26) Creatinine 5.2mg/dL (0.7-1.3) Estimated GFR (Cockcroft-Gault) 11.1 Glucose Level 180mg/dL (70-99) Calcium Level 8.1mg/dL (8.5-10.1) Phosphorus Level 4.0mg/dL (2.6-4.7) Albumin 2.4g/dL (3.4-5.0) Procalcitonin 24.92ng/mL (0.00-0.10) Glucose (Fingerstick) 187mg/dL (70-99) Laboratory Tests Test 08/31/16 16:46 08/31/16 19:30 08/31/16 20:21 09/01/16 04:00 Glucose (Fingerstick) 126mg/dL (70-99) 179mg/dL (70-99) Influenza Type A Antigen Negative (NEGATIVE) Influenza Type B Antigen Negative (NEGATIVE) White Blood Count 12.9x10^3/uL (4.0-11.0) Red Blood Count 3.04x10^6/uL (4.30-5.70) Hemoglobin 9.9g/dL (13.0-17.5) Hematocrit 30.8% (39.0-53.0) Mean Corpuscular Volume 101fL (79-100) Mean Corpuscular Hemoglobin 33pg (25-35) Mean Corpuscular Hemoglobin Concent 32g/dL (31-37) Red Cell Distribution Width 15.1% (11.5-14.5) Platelet Count 80x10^3/uL (140-400) Neutrophils (%) (Auto) 83% (31-73) Lymphocytes (%) (Auto) 8% (24-48) Monocytes (%) (Auto) 8% (0-9) Eosinophils (%) (Auto) 0% (0-3) Basophils (%) (Auto) 0% (0-3) Neutrophils # (Auto) 10.7x10^3uL (1.8-7.7) Lymphocytes # (Auto) 1.1x10^3/uL (1.0-4.8) Monocytes # (Auto) 1.1x10^3/uL (0.0-1.1) Eosinophils # (Auto) 0.0x10^3/uL (0.0-0.7) Basophils # (Auto) 0.0x10^3/uL (0.0-0.2) Sodium Level 135mmol/L (136-145) Potassium Level 5.4mmol/L (3.5-5.1) Chloride Level 97mmol/L (98-107) Carbon Dioxide Level 27mmol/L (21-32) Anion Gap 11 (6-14) Blood Urea Nitrogen 33mg/dL (8-26) Creatinine 5.2mg/dL (0.7-1.3) Estimated GFR (Cockcroft-Gault) 11.1 Glucose Level 180mg/dL (70-99) Calcium Level 8.1mg/dL (8.5-10.1) Phosphorus Level 4.0mg/dL (2.6-4.7) Albumin 2.4g/dL (3.4-5.0) Procalcitonin 24.92ng/mL (0.00-0.10) Test 09/01/16 08:38 Glucose (Fingerstick) 187mg/dL (70-99) Medications Current Medications Ondansetron HCl (Zofran) 4 mg PRN Q6HRS PRN IV Nausea; Start 08/25/16 at 07:00 ; Stop 08/26/16 at 06:59; Status DC Fentanyl Citrate (Fentanyl 2ml Vial) 25 mcg PRN Q5MIN PRN IV MILD PAIN Last administered on 08/25/16t 17:41; Start 08/25/16 at 07:00; Stop 08/25/16 at 23:18 ; Status DC Fentanyl Citrate (Fentanyl 2ml Vial) 50 mcg PRN Q5MIN PRN IV MODERATE PAIN; Start 08/25/16 at 07:00; Stop 08/25/16 at 23:18; Status DC Morphine Sulfate 1 mg 1 mg PRN Q10MIN PRN IV SEVERE PAIN; Start 08/25/16 at 07: 00; Stop 08/25/16 at 23:18; Status DC Lactated Ringer's (Iv Lactated Ringers) 1,000 ml @ 0 mls/hr Q0M IV ; Start at 07:00; Stop 08/25/16 at 18:59; Status DC Lidocaine HCl 2 ml 1X PRN PRN ID IV START; Start 08/25/16 at 07:00; Stop at 06:59; Status DC Hydromorphone HCl (Dilaudid) 0.5 mg PRN Q10MIN PRN IV SEVERE PAIN, Second choice; Start 08/25/16 at 07:00; Stop 08/25/16 at 23:18; Status DC Prochlorperazine Edisylate 5 mg 5 mg PACU PRN PRN IV NAUSEA; Start 08/25/16 at 07:00; Stop 08/25/16 at 23:18; Status DC Cefazolin Sodium/ Dextrose 50 ml @ 100 mls/hr 1X PREOP PRN IV PRIOR TO PROCEDURE Last administered on 08/25/16 08:30; Start 08/25/16 at 06:00; Stop at 18:00; Status DC Sodium Chloride (Iv Sodium Chloride 0.9% 1000ml Bag) 1,000 ml @ 0 mls/hr 1X ONCE IV Last administered on 08/25/16 06:48; Start 08/25/16 at 06:45; Stop at 06:51; Status DC Scopolamine (Transderm-Scop) 1 patch 1X ONCE TD Last administered on 07:03; Start 08/25/16 at 07:00; Stop 08/25/16 at 07:01; Status DC Dexamethasone Sodium Phosphate (Decadron) 4 mg ONCE ONCE IV Last administered on 08/25/16 07:05; Start 08/25/16 at 07:00; Stop 08/25/16 at 07:01; Status DC Ondansetron HCl (Zofran) 4 mg 1X ONCE IV Last administered on 08/25/16 07:03 ; Start 08/25/16 at 07:00; Stop 08/25/16 at 07:01; Status DC Sevoflurane (Ultane) 60 ml STK-MED ONCE IH ; Start 08/25/16 at 07:10; Stop 08/25 at 07:11; Status DC Fentanyl Citrate 250 mcg 250 mcg STK-MED ONCE .ROUTE ; Start 08/25/16 at 07:11; Stop 08/25/16 at 07:12; Status DC Propofol (Diprivan) 20 ml @ As Directed STK-MED ONCE IV ; Start 08/25/16 at 07: 11; Stop 08/25/16 at 07:12; Status DC Lidocaine HCl 100 mg STK-MED ONCE .ROUTE ; Start 08/25/16 at 07:11; Stop at 07:12; Status DC Ondansetron HCl (Zofran) 4 mg STK-MED ONCE .ROUTE ; Start 08/25/16 at 07:11; Stop 08/25/16 at 07:12; Status DC Dexamethasone Sodium Phosphate (Decadron) 20 mg STK-MED ONCE .ROUTE ; Start at 07:11; Stop 08/25/16 at 07:12; Status DC Etomidate (Amidate) 20 mg STK-MED ONCE IV ; Start 08/25/16 at 07:11; Stop at 07:12; Status DC Rocuronium [place] (Zemuron) 50 mg STK-MED ONCE .ROUTE ; Start 08/25/16 at 07:30 ; Stop 08/25/16 at 07:31; Status DC Ketamine HCl 500 mg STK-MED ONCE .ROUTE ; Start 08/25/16 at 09:54; Stop at 09:55; Status DC Rocuronium [place] (Zemuron) 50 mg STK-MED ONCE .ROUTE ; Start 08/25/16 at 11:00 ; Stop 08/25/16 at 11:01; Status DC Cellulose 1 each STK-MED ONCE .ROUTE Last administered on 08/25/16t 11:15; Start 08/25/16 at 11:14; Stop 08/25/16 at 11:15; Status DC Glycopyrrolate (Robinul) 1 mg STK-MED ONCE .ROUTE ; Start 08/25/16 at 11:25; Stop 08/25/16 at 11:26; Status DC Neostigmine Methylsulfate 5 mg STK-MED ONCE .ROUTE ; Start 08/25/16 at 11:25; Stop 08/25/16 at 11:26; Status DC Enoxaparin Sodium (Lovenox 30mg Syringe) 30 mg QHS SQ Last administered on 08/25t 21:24; Start 08/25/16 at 21:00; Stop 08/26/16 at 14:21; Status DC Sodium Chloride 3 ml 3 ml QSHIFT PRN IV AFTER MEDS AND BLOOD DRAWS; Start 08/25 at 11:30 Lactated Ringer's (Iv Lactated Ringers) 1,000 ml @ 100 mls/hr Q10H IV ; Start 08/25/16 at 11:30; Stop 08/26/16 at 09:11; Status DC Acetaminophen/ Hydrocodone Bitart (Lortab 5/325) 1 tab PRN Q4HRS PRN PO MILD PAIN Last administered on 09/01/16 08:49; Start 08/25/16 at 11:30 Hydromorphone HCl (Dilaudid) 0.2 mg PRN Q1HR PRN IV PAIN Last administered on 17:20; Start 08/25/16 at 11:30 Docusate Sodium (Colace) 100 mg BID PO Last administered on 09/01/16 08:45; Start 08/25/16 at 21:00 Ondansetron HCl (Zofran) 4 mg PRN Q6HRS PRN IV NAUESA, 1ST CHOICE Last administered on 08/31/16 08:39; Start 08/25/16 at 11:30 Insulin Human Regular 3 unit 3 unit 1X ONCE IV Last administered on 08/25/16 12:49; Start 08/25/16 at 12:45; Stop 08/25/16 at 12:46; Status DC Magnesium Sulfate/ Dextrose (Magnesium Sulfate PREMIX 2GM) 50 ml @ 25 mls/hr PRN DAILY PRN IV for Mag < 1.7 on am labs; Start 08/25/16 at 17:45 Hydralazine HCl 20 mg 20 mg PRN Q4HRS PRN IVP ELEVATED BP, SEE COMMENTS; Start 08/25/16 at 17:45 Sodium Chloride 1,000 ml @ 1,000 mls/hr Q1H PRN IV hypotension; Start 08/26/16 at 09:00; Stop 08/26/16 at 14:59; Status DC Sodium Chloride (Iv Sodium Chloride 0.9% 1000ml Bag) 1,000 ml @ 400 mls/hr Q2H30M PRN IV PATENCY; Start 08/26/16 at 09:00; Stop 08/26/16 at 20:59; Status DC Info (PHARMACY MONITORING -- do not chart) 1 each PRN DAILY PRN MC SEE COMMENTS ; Start 08/26/16 at 10:00 Heparin Sodium (Porcine) 5000 unit 5,000 unit Q8HRS SQ Last administered on 06:10; Start 08/26/16 at 22:00 Magnesium Sulfate/ Dextrose (Magnesium Sulfate PREMIX 2GM) 50 ml @ 25 mls/hr 1X ONCE IV Last administered on 08/26/16 21:34; Start 08/26/16 at 21:30; Stop 08/26/16 at 23:29; Status DC Allopurinol (Zyloprim) 300 mg DAILY PO Last administered on 08/27/16 16:06; Start 08/27/16 at 16:00; Stop 08/28/16 at 11:11; Status DC Aspirin (Children'S Aspirin) 81 mg DAILY PO Last administered on 09/01/16 08: 45; Start 08/27/16 at 16:00 Calcium Acetate (Phoslo) 667 mg TIDWMEALS PO Last administered on 09/01/16 08: 45; Start 08/27/16 at 17:00 Digoxin (Lanoxin) 125 mcg DAILY PO Last administered on 09/01/16 08:47; Start 08/27/16 at 16:00 Folic Acid/ Multivitamins/Vit B12 (Nephro-Mouna) 1 tab DAILY PO Last administered on 09/01/16 08:46; Start 08/27/16 at 16:00 Gabapentin (Neurontin) 100 mg BID PO Last administered on 09/01/16 08:46; Start 08/27/16 at 21:00 Nitroglycerin (Nitrostat) 0.4 mg PRN Q5MIN PRN SL CHEST PAIN; Start 08/27/16 at 15:30 Oxycodone/ Acetaminophen (Percocet 7.5/ 325) 1 tab PRN TID PRN PO MODERATE PAIN ; Start 08/27/16 at 15:30 Polyethylene Glycol (miraLAX PACKET) 17 gm PRN BID PRN PO CONSTIPATION Last administered on 08/29/16 08:58; Start 08/28/16 at 09:00 Ranolazine (Ranexa) 500 mg DAILY PO Last administered on 09/01/16 08:46; Start 08/27/16 at 16:00 Tamsulosin HCl (Flomax) 0.4 mg QHS PO Last administered on 08/31/16 21:30; Start 08/27/16 at 21:00 Insulin Detemir (Levemir) 30 units BIDWMEALS SQ Last administered on 08/27/16 17:34; Start 08/27/16 at 17:00; Stop 08/28/16 at 09:01; Status DC Albuterol Sulfate (Ventolin Neb Soln) 2.5 mg RTQID NEB Last administered on 06:55; Start 08/27/16 at 16:00 Budesonide 0.5 mg 0.5 mg RTBID NEB Last administered on 09/01/16 06:55; Start 08/27/16 at 20:00 Sodium Chloride 1,000 ml @ 1,000 mls/hr Q1H PRN IV hypotension; Start 08/28/16 at 07:46; Stop 08/28/16 at 13:45; Status DC Albumin Human (Albuminar) 200 ml @ 200 mls/hr 1X PRN PRN IV Hypotension; Start 08/28/16 at 08:00; Stop 08/28/16 at 13:59; Status DC Diphenhydramine HCl 25 mg 25 mg 1X PRN PRN IV ITCHING; Start 08/28/16 at 08:00 ; Stop 08/29/16 at 07:59; Status DC Sodium Chloride (Iv Sodium Chloride 0.9% 1000ml Bag) 1,000 ml @ 400 mls/hr Q2H30M PRN IV PATENCY; Start 08/28/16 at 07:46; Stop 08/28/16 at 19:45; Status DC Info (PHARMACY MONITORING -- do not chart) 1 each PRN DAILY PRN MC SEE COMMENTS ; Start 08/28/16 at 08:00; Stop 08/28/16 at 08:00; Status DC Info (PHARMACY MONITORING -- do not chart) 1 each PRN DAILY PRN MC SEE COMMENTS ; Start 08/28/16 at 08:00; Stop 08/28/16 at 08:00; Status DC Lidocaine HCl (Xylocaine-Mpf 1% Vial) 2 ml 1X ONCE INJ Last administered on 08:51; Start 08/28/16 at 08:00; Stop 08/28/16 at 08:01; Status DC Insulin Detemir (Levemir) 20 units BIDWMEALS SQ Last administered on 08/28/16 16:33; Start 08/28/16 at 17:00; Stop 08/29/16 at 12:14; Status DC Allopurinol (Zyloprim) 300 mg Q48H PO Last administered on 08/29/16 08:59; Start 08/29/16 at 09:00 Dextrose 12.5 gm PRN Q15MIN PRN IV SEE COMMENTS; Start 08/28/16 at 11:30 Insulin Detemir (Levemir) 16 units BIDWMEALS SQ ; Start 08/29/16 at 17:00; Status UNV Insulin Detemir (Levemir) 16 units 1X ONCE SQ Last administered on 08/29/16 12:17; Start 08/29/16 at 12:15; Stop 08/29/16 at 12:19; Status DC Insulin Detemir (Levemir) 16 units BIDWMEALS SQ Last administered on 08/30/16 17:03; Start 08/29/16 at 17:00; Stop 08/31/16 at 08:30; Status DC Budesonide (Pulmicort) 0.5 mg 1X ONCE NEB ; Start 08/31/16 at 00:15; Stop 08/31 at 00:16; Status DC Albuterol/ Ipratropium (Duoneb) 3 ml 1X ONCE NEB Last administered on 00:08; Start 08/31/16 at 00:15; Stop 08/31/16 at 00:16; Status DC Insulin Detemir 14 units 14 units BIDWMEALS SQ Last administered on 09/01/16 08:54; Start 08/31/16 at 09:00 Sodium Chloride (Iv Sodium Chloride 0.9% 1000ml Bag) 1,000 ml @ 1,000 mls/hr Q1H PRN IV hypotension; Start 08/31/16 at 08:41; Stop 08/31/16 at 14:40; Status DC Diphenhydramine HCl (Benadryl) 25 mg 1X PRN PRN IV ITCHING; Start 08/31/16 at 08:45; Stop 08/31/16 at 18:00; Status DC Diphenhydramine HCl (Benadryl) 25 mg 1X PRN PRN IV ITCHING; Start 08/31/16 at 08:45; Stop 08/31/16 at 18:00; Status DC Labetalol HCl 10 mg 10 mg PRN Q1HR PRN IVP SBP > 180; Start 08/31/16 at 08:45; Stop 08/31/16 at 18:00; Status DC Sodium Chloride (Iv Sodium Chloride 0.9% 1000ml Bag) 1,000 ml @ 400 mls/hr Q2H30M PRN IV PATENCY; Start 08/31/16 at 08:41; Stop 08/31/16 at 20:40; Status DC Info (PHARMACY MONITORING -- do not chart) 1 each PRN DAILY PRN MC SEE COMMENTS ; Start 08/31/16 at 08:45; Status Cancel Iohexol (Omnipaque 240 Mg/ml) 50 ml 1X ONCE PO Last administered on 08/31/16 16:16; Start 08/31/16 at 15:30; Stop 08/31/16 at 15:31; Status DC Acetaminophen 500 mg 500 mg PRN Q6HRS PRN PO MILD PAIN / TEMP Last administered on 08/31/16 23:43; Start 08/31/16 at 16:00 Piperacillin Sod/ Tazobactam Sod/ Sodium Chloride (Zosyn/Iv Sodium Chloride 0.9 % 50ml) 50 ml @ 100 mls/hr Q8HRS IV Last administered on 09/01/16 06:05; Start 08/31/16 at 22:00 Vancomycin HCl (Vanco Per Pharmacy) 1 each PRN DAILY PRN MC SEE COMMENTS; Start 08/31/16 at 18:15 Tobramycin Sulfate 1 each 1 each PRN DAILY PRN MC SEE COMMENTS; Start 08/31/16 at 18:15; Stop 09/01/16 at 09:25; Status DC Vancomycin HCl/ Sodium Chloride (Iv Sodium Chloride 0.9% 500ml Bag) 500 ml @ 250 mls/hr 1X ONCE IV Last administered on 08/31/16 21:39; Start 08/31/16 at 18:30; Stop 08/31/16 at 20:29; Status DC Vancomycin HCl 1 each 1 each PRN DAILY PRN MC SEE COMMENTS; Start 08/31/16 at 18:15; Status UNV Piperacillin Sod/ Tazobactam Sod/ Sodium Chloride (Zosyn/Iv Sodium Chloride 0.9 % 50ml) 50 ml @ 100 mls/hr Q8HRS IV ; Start 08/31/16 at 22:00; Status UNV Tobramycin Sulfate (Nebcin Per Pharmacy) 1 each PRN DAILY PRN MC SEE COMMENTS; Start 08/31/16 at 18:15; Status UNV Vancomycin HCl 1 each 1 each 1X ONCE MC ; Start 09/02/16 at 05:00; Stop at 05:01 Tobramycin Sulfate/Sodium Chloride (Nebcin/Iv Sodium Chloride 0.9% 50ml) 53.75 ml @ 104 mls/hr 1X ONCE IV Last administered on 08/31/16t 18:55; Start at 18:30; Stop 08/31/16 at 19:01; Status DC Tobramycin Sulfate 1 each 1X ONCE MC ; Start 09/02/16 at 05:00; Stop 09/02/16 at 05:00; Status DC Darbepoetin [place] (Aranesp) 60 mcg WEEKLYHS SQ ; Start 09/01/16 at 21:00 Active Scripts Active Reported Gabapentin 100 Mg Capsule 100 Mg PO BID Ranexa (Ranolazine) 500 Mg Tab.er.12h 1 Tab PO DAILY Phoslo (Calcium Acetate) 667 Mg Capsule 667 Mg PO TIDWMEALS Polyethylene Glycol 3350 255 Gm Powder 17 Gm PO DAILY PRN Anoro Ellipta 62.5-25 Mcg Inh (Umeclidinium Brm/Vilanterol Tr) 1 Each Disk.w.dev 1 Each IH DAILY Clopidogrel (Clopidogrel Bisulfate) 75 Mg Tablet 1 Tab PO DAILY Percocet 7.5-325 Mg Tablet (Oxycodone/Acetaminophen) 1 Each Tablet 1 Tab PO TID PRN Dialyvite 800 Tablet (Folic Acid/Vitamin B Comp W-C) 0.8 Mg Tablet 0.8 Mg PO DAILY NITROGLYCERIN SubLingual (Nitroglycerin) 0.4 Mg Tab.subl 0.4 Mg SL PRN Humulin 70-30 Vial (Hum Insulin Nph/Reg Insulin Hm) 100 Unit/1 Ml Vial 30 Unit SQ BIDWMEALS Allopurinol 300 Mg Tablet 300 Mg PO DAILY Pepcid (Famotidine) 20 Mg Tablet 20 Mg PO QHS Lanoxin (Digoxin) 125 Mcg Tablet 125 Mcg PO DAILY Flomax (Tamsulosin Hcl) 0.4 Mg Cap.er.24h 0.4 Mg PO HS Aspirin 81 Mg Tab.chew 81 Mg PO DAILY Vitals/I & O Vital Sign - Last 24 Hours 08/31/16 08/31/16 08/31/16 08/31/16 11:50 15:00 16:38 17:37 Temp 102.5 102.2 102.5 102.2 Pulse 90 Resp 18 B/P 132/49 Pulse Ox 94 O2 Delivery Nasal Cannula Nasal Cannula Nasal Cannula O2 Flow Rate 2.0 4.0 2.0 08/31/16 08/31/16 08/31/16 08/31/16 19:00 20:00 20:03 21:30 Temp 99.9 99.9 Pulse 100 Resp 18 16 B/P 112/53 Pulse Ox 93 O2 Delivery Nasal Cannula Nasal Cannula Nasal Cannula Nasal Cannula O2 Flow Rate 4.0 2.0 2.0 2.0 08/31/16 08/31/16 09/01/16 09/01/16 22:30 23:30 03:00 06:56 Temp 101.3 98.2 101.3 98.2 Pulse 85 77 Resp 16 18 18 B/P 120/52 92/42 Pulse Ox 98 90 100 O2 Delivery Nasal Cannula Nasal Cannula Nasal Cannula Nasal Cannula O2 Flow Rate 2.0 4.0 4.0 3.0 09/01/16 09/01/16 09/01/16 09/01/16 07:00 08:46 08:47 08:49 Temp 98.0 98.0 Pulse 63 63 63 Resp 16 B/P 93/37 93/37 93/37 Pulse Ox 96 96 O2 Delivery Nasal Cannula Nasal Cannula O2 Flow Rate 2.0 2.0 Intake and Output 08/31/16 08/31/16 09/01/16 15:00 23:00 07:00 Intake Total 250 ml 1427 ml Output Total 300 ml Balance -50 ml 1427 ml LEXI ALTAMIRANO MD Sep 01, 2016 10:34
--- NOTE | 2016-09-01 14:04 | PDOC ---
SURGICAL PROGRESS NOTE Subjective Pt feels better today, barbara PO, fatigued Vital Signs Vital Signs Date Time Temp Pulse Resp B/P Pulse Ox O2 Delivery O2 Flow Rate FiO2 09/01/16 11:43 99 Nasal Cannula 2.0 09/01/16 11:00 97.1 61 18 98/47 97.1 I&O Intake and Output 09/01/16 07:00 Intake Total 1677 ml Output Total 300 ml Balance 1377 ml Intake Oral 1000 ml Other 677 ml Output Urine Total 0 ml Emesis 300 ml # Voids 2 General: Alert, Oriented X3, Cooperative, No acute distress Abdomen: Soft, No tenderness Labs Laboratory Tests Test 08/30/16 16:54 08/30/16 20:43 08/31/16 05:05 08/31/16 08:11 Glucose (Fingerstick) 182mg/dL (70-99) 155mg/dL (70-99) 66mg/dL (70-99) Sodium Level 139mmol/L (136-145) Potassium Level 5.0mmol/L (3.5-5.1) Chloride Level 99mmol/L (98-107) Carbon Dioxide Level 26mmol/L (21-32) Anion Gap 14 (6-14) Blood Urea Nitrogen 66mg/dL (8-26) Creatinine 9.2mg/dL (0.7-1.3) Estimated GFR (Cockcroft-Gault) 5.8 Glucose Level 80mg/dL (70-99) Calcium Level 8.3mg/dL (8.5-10.1) Phosphorus Level 4.5mg/dL (2.6-4.7) Albumin 2.6g/dL (3.4-5.0) Test 08/31/16 16:46 08/31/16 19:30 08/31/16 20:21 09/01/16 04:00 Glucose (Fingerstick) 126mg/dL (70-99) 179mg/dL (70-99) Influenza Type A Antigen Negative (NEGATIVE) Influenza Type B Antigen Negative (NEGATIVE) White Blood Count 12.9x10^3/uL (4.0-11.0) Red Blood Count 3.04x10^6/uL (4.30-5.70) Hemoglobin 9.9g/dL (13.0-17.5) Hematocrit 30.8% (39.0-53.0) Mean Corpuscular Volume 101fL (79-100) Mean Corpuscular Hemoglobin 33pg (25-35) Mean Corpuscular Hemoglobin Concent 32g/dL (31-37) Red Cell Distribution Width 15.1% (11.5-14.5) Platelet Count 80x10^3/uL (140-400) Neutrophils (%) (Auto) 83% (31-73) Lymphocytes (%) (Auto) 8% (24-48) Monocytes (%) (Auto) 8% (0-9) Eosinophils (%) (Auto) 0% (0-3) Basophils (%) (Auto) 0% (0-3) Neutrophils # (Auto) 10.7x10^3uL (1.8-7.7) Lymphocytes # (Auto) 1.1x10^3/uL (1.0-4.8) Monocytes # (Auto) 1.1x10^3/uL (0.0-1.1) Eosinophils # (Auto) 0.0x10^3/uL (0.0-0.7) Basophils # (Auto) 0.0x10^3/uL (0.0-0.2) Sodium Level 135mmol/L (136-145) Potassium Level 5.4mmol/L (3.5-5.1) Chloride Level 97mmol/L (98-107) Carbon Dioxide Level 27mmol/L (21-32) Anion Gap 11 (6-14) Blood Urea Nitrogen 33mg/dL (8-26) Creatinine 5.2mg/dL (0.7-1.3) Estimated GFR (Cockcroft-Gault) 11.1 Glucose Level 180mg/dL (70-99) Calcium Level 8.1mg/dL (8.5-10.1) Phosphorus Level 4.0mg/dL (2.6-4.7) Albumin 2.4g/dL (3.4-5.0) Procalcitonin 24.92ng/mL (0.00-0.10) Test 09/01/16 08:38 09/01/16 11:35 Glucose (Fingerstick) 187mg/dL (70-99) 141mg/dL (70-99) Laboratory Tests Test 08/31/16 16:46 08/31/16 19:30 08/31/16 20:21 09/01/16 04:00 Glucose (Fingerstick) 126mg/dL (70-99) 179mg/dL (70-99) Influenza Type A Antigen Negative (NEGATIVE) Influenza Type B Antigen Negative (NEGATIVE) White Blood Count 12.9x10^3/uL (4.0-11.0) Red Blood Count 3.04x10^6/uL (4.30-5.70) Hemoglobin 9.9g/dL (13.0-17.5) Hematocrit 30.8% (39.0-53.0) Mean Corpuscular Volume 101fL (79-100) Mean Corpuscular Hemoglobin 33pg (25-35) Mean Corpuscular Hemoglobin Concent 32g/dL (31-37) Red Cell Distribution Width 15.1% (11.5-14.5) Platelet Count 80x10^3/uL (140-400) Neutrophils (%) (Auto) 83% (31-73) Lymphocytes (%) (Auto) 8% (24-48) Monocytes (%) (Auto) 8% (0-9) Eosinophils (%) (Auto) 0% (0-3) Basophils (%) (Auto) 0% (0-3) Neutrophils # (Auto) 10.7x10^3uL (1.8-7.7) Lymphocytes # (Auto) 1.1x10^3/uL (1.0-4.8) Monocytes # (Auto) 1.1x10^3/uL (0.0-1.1) Eosinophils # (Auto) 0.0x10^3/uL (0.0-0.7) Basophils # (Auto) 0.0x10^3/uL (0.0-0.2) Sodium Level 135mmol/L (136-145) Potassium Level 5.4mmol/L (3.5-5.1) Chloride Level 97mmol/L (98-107) Carbon Dioxide Level 27mmol/L (21-32) Anion Gap 11 (6-14) Blood Urea Nitrogen 33mg/dL (8-26) Creatinine 5.2mg/dL (0.7-1.3) Estimated GFR (Cockcroft-Gault) 11.1 Glucose Level 180mg/dL (70-99) Calcium Level 8.1mg/dL (8.5-10.1) Phosphorus Level 4.0mg/dL (2.6-4.7) Albumin 2.4g/dL (3.4-5.0) Procalcitonin 24.92ng/mL (0.00-0.10) Test 09/01/16 08:38 09/01/16 11:35 Glucose (Fingerstick) 187mg/dL (70-99) 141mg/dL (70-99) Problem List Problems Medical Problems: (1) Retroperitoneal mass Status: Acute Assessment/Plan s/p resection CT wnl cont supportive care appreciate consultants Problems: BEATA HARDY MD Sep 01, 2016 14:04
--- NOTE | 2016-09-01 14:57 | PATHOLOGY ---
PATHOLOGY REPORT * * * * * * * * FINAL DIAGNOSIS: A. Mesenteric mass, excision: - Polypoid segment of benign adipose tissue. B. 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 See comment. - Perinephric margins of resection negative for tumor. - Ureteral margin negative for tumor. - Renal artery and renal vein margins of resection negative for tumor. - Medial calcification and moderate luminal stenosis of renal artery. - Arterial nephrosclerosis. C. Fibroadipose tissue, peritoneal mass: - Organizing fat necrosis with focal dystrophic calcification. COMMENT: Sections of the perinephric mass reveal a well circumscribed, partially encapsulated mass which is composed predominantly of mature adipose tissue. There is a minor component of spindle cells. The spindle cells are present in irregular bundles which focally traverse the adipose tissue component. The spindle cells have eosinophilic fibrillary cytoplasm, and possess ovoid bland appearing nuclei. The tumor shows foci of recent and remote hemorrhage. There is focal chronic inflammation. There are a few scattered hyperchromatic cells present which on closer inspection possess numerous dark basophilic granules and are consistent with mast cells. A limited panel of immunoperoxidase stains is obtained and yields the following results: Smooth muscle actin (B11): spindle cells positive Smooth muscle myosin heavy chain (B11): spindle cells focally positive S-100 (B11): spindle cells negative Smooth muscle actin (B12): spindle cells positive Smooth muscle myosin heavy chain (B12): spindle cells focally positive HMB-45 (B12): spindle cells negative The morphologic and immunophenotypic findings are suggestive of a benign lipomatous tumor. However, because of the retroperitoneal location, we cannot absolutely rule out the possibility of an atypical lipomatous neoplasm/well differentiated liposarcoma. The case is sent to [facility] for consultation, the results of which will be reported separately/ (JPM:/zaynab; d/t: 08/28-) REPORT ELECTRONICALLY SIGNED BY: Julian Stauffer M.D. DATE/TIME: 09/01/2016 14:57 * * * * * * * * GROSS PATHOLOGY: A. The specimen is received fresh and is designated "mesenteric mass". This consists of a somewhat polypoid shaped segment of yellow fatty appearing tissue measuring up to 3.2 x 2.5 x 0.9 cm. The base is inked with black ink. The specimen is bisected. Sectioning reveals a fairly uniform soft fatty appearing cut surface. The specimen is submitted entirely for microscopy as A1 and A2. (JPM:all; d/t: 08/25/2016) B. The specimen is received fresh and is designated "right kidney and mass". This consists of a kidney with attached perinephric fat and segment of ureter. The specimen weighs 557 grams and measures 18.0 cm in length, approximately 12.5 cm in width, and 6.5 cm in anteroposterior thickness. There are focal thin segments of pink fibromembranous tissue attached to the anterior perinephric fat. There is a segment of ureter with attached suture exiting the medial inferior aspect of the specimen, measuring approximately 3 cm in length. There is a mass palpated within the medial inferior perinephric fat posterior to the ureter and medial to the kidney. The renal hilar vessels are identified within the middle medial perinephric fat. The perinephric margins surrounding the medial inferior perinephric mass are inked as follows: posterior black; medial blue; and anterior orange. The specimen is opened up through the ureter. The specimen is bivalved. The kidney is brown and measures 9.0 cm in length. The cortical thickness is approximately 0.7 cm. There is good demarcation of the corticomedullary junction. There are no masses within the renal pelvis. There is a well-demarcated ovoid shaped mass within the perinephric fat medial and separate from the kidney and inferior to the renal vessels. The mass measures 4.5 cm in greatest dimension and has a variegated pink patterson yellow soft cut surface. It is fairly well-demarcated from the surrounding fat. The tumor is approximately 0.5 cm from the closest inked posterior margin of resection. Sections are submitted as follows: A peer counselor section of the tumor is submitted for frozen section for triage purposes and subsequently submitted for permanent sections as B1. A customer solutions representative section of the tumor and the posterior margin of resection is submitted as B2. B3 ureteral margin (black) and additional sections of ureter B4 vascular margins of resection B5-6 customer solutions representative sections of kidney B7 renal pelvis B8-13 multiple customer solutions representative sections of perinephric tumor (JPM:csd/all; d/t: 08/25/2016) C. The specimen is received in formalin labeled "Melida Zheng, peritoneal mass". Received is a segment of bright yellow lobulated tissue measuring 4.9 x 2.6 x 1.9 cm in greatest dimensions. Sectioning reveals a well-circumscribed pale patterson to red-orange possible mass measuring 2.2 x 2.2 x 1.3 cm in greatest dimensions. The specimen is submitted representatively in cassettes C1 through C3. (CAA; 08/26/2016) FROZEN SECTION DIAGNOSIS: B. Right kidney with attached perinephric fat and segment of ureter, resection: - Perinephric fatty tumor-subtype to be determined. The results are discussed with Dr. Gomes after surgery. (JPM:mgr; d/t: 08/28/16) Testing performed [place] [address] INITIAL CPT CODE(S): A; 34776 B; 41784, 97362, 87924, 21458, 37180, 02491, 67767, 67684, 83892 C; 79967 Professional services performed [place] [facility] [address] Technical services performed by [facility] at [address] [place] [address], [facility] [address] [address]. SPECIMEN(S) RECEIVED: A.Mesenteric mass B.Right kidney and mass C.Peritoneal mass CLINICAL HISTORY: Right retroperitoneal mass PATIENT: MELIDA YANG /AGE: 4 1950 (Age: 65) PATIENT #: [id number] ALT CASE #: SPECIMEN COLLECTION DATE: 08/25/2016 SPECIMEN RECEIVED DATE: 08/25/2016 [facility] - [address] [place] [address] - PHONE: [phone] * * * END OF REPORT * * *
[2016-09-01] MEDS: VANCOMYCIN PER PHARMACY MC PRN (15:04)
[2016-09-01] MEDS ORDERED: DARBEPOETIN ALFA 60 MCG/0.3 ML DISP.SYRIN. SQ SCH (21:00)
[2016-09-01] MEDS: TAMSULOSIN 0.4 MG CAP.ER.24H. PO SCH (22:01)
[2016-09-02] MEDS: HYDROCODONE/APAP 5/325MG TABLET. PO PRN ×2 (02:58→14:35)
[2016-09-02 03:00] VITALS: BP 129/62
[2016-09-02 04:40] LABS: BASO # 0.1 x10^3/uL (0.0-0.2); BASO % 1 % (0-3); EOS % 1 % (0-3); HEMOGLOBIN 9.6 g/dL (13.0-17.5); LYMPH # 0.7 x10^3/uL (1.0-4.8); LYMPH % 6 % (24-48); MEAN CORPUSCULAR HEMOGLOBIN 33 pg (25-35); MEAN CORPUSCULAR HGB CONC 33 g/dL (31-37); MEAN CORPUSCULAR VOLUME 98 fL (79-100); MONO % 9 % (0-9); NEUT % 84 % (31-73); PLATELET COUNT 86 x10^3/uL (140-400); RED BLOOD COUNT 2.97 x10^6/uL (4.30-5.70); RED CELL DISTRIBUTION WIDTH 14.7 % (11.5-14.5); WHITE BLOOD COUNT 12.2 x10^3/uL (4.0-11.0)
[2016-09-02 05:00] LABS: CALCIUM 7.8 mg/dL (8.5-10.1); CREATININE 6.9 mg/dL (0.7-1.3); POTASSIUM 4.6 mmol/L (3.5-5.1)
[2016-09-02] MEDS ORDERED: VANCOMYCIN RANDOM LEVEL. MC ONE (05:00)
[2016-09-02] MEDS ORDERED: TOBRAMYCIN RANDOM LEVEL. MC ONE (05:00)
[2016-09-02] MEDS: HEPARIN PF for SUB-Q USE 5,000 UNIT/0.5 ML VIAL. SQ SCH ×3 (05:55→21:30)
[2016-09-02] MEDS: PIPERACILLIN/TAZOBACTAM 2.25 GM in IV NORMAL SALINE 50ML 50 ML IV SCH ×3 (05:55→22:32)
[2016-09-02 07:15] VITALS: BP 109/55
[2016-09-02] MEDS: ALBUTEROL SULFATE 2.5 MG/3 ML NEBU. NEB SCH ×4 (07:29→19:13)
[2016-09-02] MEDS: BUDESONIDE 0.5 MG/2 ML NEBU NEB SCH ×2 (07:29→19:13)
[2016-09-02] MEDS: INSULIN DETEMIR 300 UNITS/3 ML INSULN.PEN. SQ SCH ×2 (08:00→17:00)
[2016-09-02] MEDS: CALCIUM ACETATE 667 MG CAPSULE PO SCH ×3 (08:00→17:00)
--- NOTE | 2016-09-02 08:54 | CONS ---
DATE OF CONSULTATION: 09/01/2016 LOCATION: Room 430. REQUESTING PHYSICIAN: Dr. Kuo. REASON FOR CONSULTATION: Fevers. HISTORY OF PRESENT ILLNESS: The patient is a 65-year-old gentleman with history of chronic kidney disease on hemodialysis for the past 3 years. In addition, he is on oxygen for the past 2 years. He underwent an enbloc excisional biopsy and resection of a right retroperitoneal mass on 08/25/2016. He has been feeling somewhat fatigued since his admission. Additionally, underwent a nephrectomy. He does have a history of previous colon cancer, it has been resected. Had been doing fairly well, although yesterday he developed temperatures up to 102.5. He has not had any gross sinus issues. No gross headaches, no sore throat or cough or chest pain. He has had decreased appetite prior to his presentation. Additionally, he has been constipated and did not have a bowel movement until early this morning. He does not make any urine. Denies any falls. He does have a left foot ulcer that he has been caring for at the wound care center. Yesterday, I was consulted and instituted vancomycin, Zosyn, tobramycin and ordered influenza screen. Blood cultures had been ordered by Dr. Calzada. Today the patient feels his temperature is a little bit better, but still feels somewhat weak. PAST MEDICAL HISTORY: Positive for history of above-mentioned colon cancer with resection, coronary artery disease and cardiomyopathy with congestive heart failure, he has a pacemaker in place. He has got end-stage renal disease, on hemodialysis, ____retroperitoneal mass, atrial fibrillation, valve insufficiency, pulmonary hypertension and anemia. History of C. diff. PAST SURGICAL HISTORY: Positive for the pacemaker placement as well as above-mentioned colon cancer resection and the above-mentioned abdominal mass resection and a nephrectomy. He has had a cholecystectomy, previous cardiac stents. He has had cataract surgery. REVIEW OF SYSTEMS: Otherwise negative except for mentioned above. SOCIAL HISTORY: He has a history of previous tobacco in the past. No significant alcohol. FAMILY HISTORY: Positive for colon as well as lung cancer. CURRENT MEDICATIONS: Again, vancomycin and Zosyn I instituted yesterday as well as tobramycin x 1. He is on albuterol, ____, aspirin, Pulmicort, Colace, Neurontin, hydralazine, Ranexa, Flomax. Other meds are available and have been reviewed in the chart. PHYSICAL EXAMINATION: VITAL SIGNS: T-max was 102.5, currently is 98, pulse 63, blood pressure 93/57, satting 96% on 2 liters nasal cannula. CONSTITUTIONAL: He is cooperative. He is lying in bed. He appears comfortable, and is wearing nasal cannula oxygen. HEENT: Pupils are status post cataract surgery. Normal conjunctivae. Oral cavity, oropharynx is clear. No signs of thrush. NECK: Supple, no JVD. LUNGS: Clear to auscultation bilaterally. HEART: S1, S2, with pacemaker without signs of complications. ABDOMEN: Soft, mildly distended with decreased bowel sounds. EXTREMITIES: No clubbing, cyanosis. He has tinea associated with his feet. He has an ulceration on the dorsal aspect of his left foot that appears to be clean without signs of any infection, but his feet are scaling and they are dry. NEUROLOGICAL: He is nonfocal, moves all extremities. SKIN: Warm to touch without rash. NEUROLOGIC: Affect is appropriate. LABORATORY DATA: Today, white count 12.9, hemoglobin 9.9, platelets were 80 with 83 segs. Creatinine ____, glucose 180. Influenza screen was negative. MRSA screen in the past had been negative. Cultures pending. CT scan showed trace ____, constipation and uncomplicated diverticulosis, no acute feature in the abdomen. IMPRESSION: 1. Fever. 2. Leukocytosis. 3. Abdominal pain that is improved with a bowel movement this a.m. 4. Chronic kidney disease on hemodialysis. 5. Left foot ulcer, does not look infected. 6. Pacemaker placement. 7. History of Clostridium difficile colitis in 12/2013. RECOMMENDATIONS: Again, flu screen is negative. Blood cultures have been ordered. We will continue the vancomycin and Zosyn instituted yesterday. Again, give tobramycin x 1 as well. Follow up on labs and cultures and response. Thank you for allowing us to participate in the patient's care. If you have any questions, please do not hesitate to contact me. ZACHARY MOSQUERA MD DR: CINDY/macho JOB#: [id number] / [id number]
[2016-09-02] MEDS: DIGOXIN 125 MCG TABLET PO SCH (09:00)
[2016-09-02] MEDS: RANOLAZINE 500 MG TAB.ER.12H PO SCH (09:00)
--- NOTE | 2016-09-02 09:03 | PDOC ---
Provider Note Provider Note vss, no more temp- cultures neg so far- glucose good on current regimen SANDEEP YANG MD Sep 02, 2016 09:03
[2016-09-02] MEDS ORDERED: IV NORMAL SALINE 1000ML BAG 1,000 ML IV PRN ×2 (09:10)
[2016-09-02] MEDS ORDERED: DIALYSIS PATIENT. MC PRN ×3 (09:15)
[2016-09-02] MEDS ORDERED: DIPHENHYDRAMINE 50 MG/ML VIAL IV PRN ×2 (09:15)
--- NOTE | 2016-09-02 09:57 | PDOC ---
PROGRESS NOTES Subjective Subjective Patient was in dialysis, he states he is feeling well this morning. He offers no cardiac complaints Objective Objective Vital Signs Date Time Temp Pulse Resp B/P Pulse Ox O2 Delivery O2 Flow Rate FiO2 09/02/16 09:00 79 109/55 09/02/16 07:44 98 Nasal Cannula 1.0 09/02/16 07:15 98.4 16 98.4 Intake and Output 09/02/16 07:00 Intake Total 50 ml Output Total 0 ml Balance 50 ml Intake Oral 0 ml IV Total 50 ml Output Urine Total 0 ml # Voids 1 # Bowel Movements 1 Physical Exam Physical Exam No change in cardiac exam Assessment Assessment Problems Medical Problems: (1) Retroperitoneal mass Status: Acute Plan Plan of Care Patient is stable from a cardiac standpoint. Continue current plan of care and encourage ambulation. Comment Review of Relevant I have reviewed the following items nicole (where applicable) has been applied. Labs Laboratory Tests Test 08/31/16 16:46 08/31/16 19:30 08/31/16 20:21 09/01/16 04:00 Glucose (Fingerstick) 126mg/dL (70-99) 179mg/dL (70-99) Influenza Type A Antigen Negative (NEGATIVE) Influenza Type B Antigen Negative (NEGATIVE) White Blood Count 12.9x10^3/uL (4.0-11.0) Red Blood Count 3.04x10^6/uL (4.30-5.70) Hemoglobin 9.9g/dL (13.0-17.5) Hematocrit 30.8% (39.0-53.0) Mean Corpuscular Volume 101fL (79-100) Mean Corpuscular Hemoglobin 33pg (25-35) Mean Corpuscular Hemoglobin Concent 32g/dL (31-37) Red Cell Distribution Width 15.1% (11.5-14.5) Platelet Count 80x10^3/uL (140-400) Neutrophils (%) (Auto) 83% (31-73) Lymphocytes (%) (Auto) 8% (24-48) Monocytes (%) (Auto) 8% (0-9) Eosinophils (%) (Auto) 0% (0-3) Basophils (%) (Auto) 0% (0-3) Neutrophils # (Auto) 10.7x10^3uL (1.8-7.7) Lymphocytes # (Auto) 1.1x10^3/uL (1.0-4.8) Monocytes # (Auto) 1.1x10^3/uL (0.0-1.1) Eosinophils # (Auto) 0.0x10^3/uL (0.0-0.7) Basophils # (Auto) 0.0x10^3/uL (0.0-0.2) Sodium Level 135mmol/L (136-145) Potassium Level 5.4mmol/L (3.5-5.1) Chloride Level 97mmol/L (98-107) Carbon Dioxide Level 27mmol/L (21-32) Anion Gap 11 (6-14) Blood Urea Nitrogen 33mg/dL (8-26) Creatinine 5.2mg/dL (0.7-1.3) Estimated GFR (Cockcroft-Gault) 11.1 Glucose Level 180mg/dL (70-99) Calcium Level 8.1mg/dL (8.5-10.1) Phosphorus Level 4.0mg/dL (2.6-4.7) Albumin 2.4g/dL (3.4-5.0) Procalcitonin 24.92ng/mL (0.00-0.10) Test 09/01/16 08:38 09/01/16 11:35 09/01/16 16:02 09/01/16 20:50 Glucose (Fingerstick) 187mg/dL (70-99) 141mg/dL (70-99) 125mg/dL (70-99) 195mg/dL (70-99) Test 09/02/16 04:20 09/02/16 07:42 White Blood Count 12.2x10^3/uL (4.0-11.0) Red Blood Count 2.97x10^6/uL (4.30-5.70) Hemoglobin 9.6g/dL (13.0-17.5) Hematocrit 29.0% (39.0-53.0) Mean Corpuscular Volume 98fL (79-100) Mean Corpuscular Hemoglobin 33pg (25-35) Mean Corpuscular Hemoglobin Concent 33g/dL (31-37) Red Cell Distribution Width 14.7% (11.5-14.5) Platelet Count 86x10^3/uL (140-400) Neutrophils (%) (Auto) 84% (31-73) Lymphocytes (%) (Auto) 6% (24-48) Monocytes (%) (Auto) 9% (0-9) Eosinophils (%) (Auto) 1% (0-3) Basophils (%) (Auto) 1% (0-3) Neutrophils # (Auto) 10.2x10^3uL (1.8-7.7) Lymphocytes # (Auto) 0.7x10^3/uL (1.0-4.8) Monocytes # (Auto) 1.0x10^3/uL (0.0-1.1) Eosinophils # (Auto) 0.1x10^3/uL (0.0-0.7) Basophils # (Auto) 0.1x10^3/uL (0.0-0.2) Sodium Level 136mmol/L (136-145) Potassium Level 4.6mmol/L (3.5-5.1) Chloride Level 97mmol/L (98-107) Carbon Dioxide Level 26mmol/L (21-32) Anion Gap 13 (6-14) Blood Urea Nitrogen 52mg/dL (8-26) Creatinine 6.9mg/dL (0.7-1.3) Estimated GFR (Cockcroft-Gault) 8.0 Glucose Level 103mg/dL (70-99) Calcium Level 7.8mg/dL (8.5-10.1) Random Vancomycin Level 24.2mcg/mL Glucose (Fingerstick) 111mg/dL (70-99) Laboratory Tests Test 09/01/16 11:35 09/01/16 16:02 09/01/16 20:50 09/02/16 04:20 Glucose (Fingerstick) 141mg/dL (70-99) 125mg/dL (70-99) 195mg/dL (70-99) White Blood Count 12.2x10^3/uL (4.0-11.0) Red Blood Count 2.97x10^6/uL (4.30-5.70) Hemoglobin 9.6g/dL (13.0-17.5) Hematocrit 29.0% (39.0-53.0) Mean Corpuscular Volume 98fL (79-100) Mean Corpuscular Hemoglobin 33pg (25-35) Mean Corpuscular Hemoglobin Concent 33g/dL (31-37) Red Cell Distribution Width 14.7% (11.5-14.5) Platelet Count 86x10^3/uL (140-400) Neutrophils (%) (Auto) 84% (31-73) Lymphocytes (%) (Auto) 6% (24-48) Monocytes (%) (Auto) 9% (0-9) Eosinophils (%) (Auto) 1% (0-3) Basophils (%) (Auto) 1% (0-3) Neutrophils # (Auto) 10.2x10^3uL (1.8-7.7) Lymphocytes # (Auto) 0.7x10^3/uL (1.0-4.8) Monocytes # (Auto) 1.0x10^3/uL (0.0-1.1) Eosinophils # (Auto) 0.1x10^3/uL (0.0-0.7) Basophils # (Auto) 0.1x10^3/uL (0.0-0.2) Sodium Level 136mmol/L (136-145) Potassium Level 4.6mmol/L (3.5-5.1) Chloride Level 97mmol/L (98-107) Carbon Dioxide Level 26mmol/L (21-32) Anion Gap 13 (6-14) Blood Urea Nitrogen 52mg/dL (8-26) Creatinine 6.9mg/dL (0.7-1.3) Estimated GFR (Cockcroft-Gault) 8.0 Glucose Level 103mg/dL (70-99) Calcium Level 7.8mg/dL (8.5-10.1) Random Vancomycin Level 24.2mcg/mL Test 09/02/16 07:42 Glucose (Fingerstick) 111mg/dL (70-99) Microbiology 08/31/16 Blood Culture - Preliminary, Resulted NO GROWTH AFTER 1 DAY Medications Current Medications Ondansetron HCl (Zofran) 4 mg PRN Q6HRS PRN IV Nausea; Start 08/25/16 at 07:00 ; Stop 08/26/16 at 06:59; Status DC Fentanyl Citrate (Fentanyl 2ml Vial) 25 mcg PRN Q5MIN PRN IV MILD PAIN Last administered on 08/25/16t 17:41; Start 08/25/16 at 07:00; Stop 08/25/16 at 23:18 ; Status DC Fentanyl Citrate (Fentanyl 2ml Vial) 50 mcg PRN Q5MIN PRN IV MODERATE PAIN; Start 08/25/16 at 07:00; Stop 08/25/16 at 23:18; Status DC Morphine Sulfate 1 mg 1 mg PRN Q10MIN PRN IV SEVERE PAIN; Start 08/25/16 at 07: 00; Stop 08/25/16 at 23:18; Status DC Lactated Ringer's (Iv Lactated Ringers) 1,000 ml @ 0 mls/hr Q0M IV ; Start at 07:00; Stop 08/25/16 at 18:59; Status DC Lidocaine HCl 2 ml 1X PRN PRN ID IV START; Start 08/25/16 at 07:00; Stop at 06:59; Status DC Hydromorphone HCl (Dilaudid) 0.5 mg PRN Q10MIN PRN IV SEVERE PAIN, Second choice; Start 08/25/16 at 07:00; Stop 08/25/16 at 23:18; Status DC Prochlorperazine Edisylate 5 mg 5 mg PACU PRN PRN IV NAUSEA; Start 08/25/16 at 07:00; Stop 08/25/16 at 23:18; Status DC Cefazolin Sodium/ Dextrose 50 ml @ 100 mls/hr 1X PREOP PRN IV PRIOR TO PROCEDURE Last administered on 08/25/16 08:30; Start 08/25/16 at 06:00; Stop at 18:00; Status DC Sodium Chloride (Iv Sodium Chloride 0.9% 1000ml Bag) 1,000 ml @ 0 mls/hr 1X ONCE IV Last administered on 08/25/16 06:48; Start 08/25/16 at 06:45; Stop at 06:51; Status DC Scopolamine (Transderm-Scop) 1 patch 1X ONCE TD Last administered on t 07:03; Start 08/25/16 at 07:00; Stop 08/25/16 at 07:01; Status DC Dexamethasone Sodium Phosphate (Decadron) 4 mg ONCE ONCE IV Last administered on 08/25/16t 07:05; Start 08/25/16 at 07:00; Stop 08/25/16 at 07:01; Status DC Ondansetron HCl (Zofran) 4 mg 1X ONCE IV Last administered on 08/25/16t 07:03 ; Start 08/25/16 at 07:00; Stop 08/25/16 at 07:01; Status DC Sevoflurane (Ultane) 60 ml STK-MED ONCE IH ; Start 08/25/16 at 07:10; Stop 08/25 at 07:11; Status DC Fentanyl Citrate 250 mcg 250 mcg STK-MED ONCE .ROUTE ; Start 08/25/16 at 07:11; Stop 08/25/16 at 07:12; Status DC Propofol (Diprivan) 20 ml @ As Directed STK-MED ONCE IV ; Start 08/25/16 at 07: 11; Stop 08/25/16 at 07:12; Status DC Lidocaine HCl 100 mg STK-MED ONCE .ROUTE ; Start 08/25/16 at 07:11; Stop at 07:12; Status DC Ondansetron HCl (Zofran) 4 mg STK-MED ONCE .ROUTE ; Start 08/25/16 at 07:11; Stop 08/25/16 at 07:12; Status DC Dexamethasone Sodium Phosphate (Decadron) 20 mg STK-MED ONCE .ROUTE ; Start at 07:11; Stop 08/25/16 at 07:12; Status DC Etomidate (Amidate) 20 mg STK-MED ONCE IV ; Start 08/25/16 at 07:11; Stop at 07:12; Status DC Rocuronium Linn (Zemuron) 50 mg STK-MED ONCE .ROUTE ; Start 08/25/16 at 07:30 ; Stop 08/25/16 at 07:31; Status DC Ketamine HCl 500 mg STK-MED ONCE .ROUTE ; Start 08/25/16 at 09:54; Stop at 09:55; Status DC Rocuronium Linn (Zemuron) 50 mg STK-MED ONCE .ROUTE ; Start 08/25/16 at 11:00 ; Stop 08/25/16 at 11:01; Status DC Cellulose 1 each STK-MED ONCE .ROUTE Last administered on 08/25/16 11:15; Start 08/25/16 at 11:14; Stop 08/25/16 at 11:15; Status DC Glycopyrrolate (Robinul) 1 mg STK-MED ONCE .ROUTE ; Start 08/25/16 at 11:25; Stop 08/25/16 at 11:26; Status DC Neostigmine Methylsulfate 5 mg STK-MED ONCE .ROUTE ; Start 08/25/16 at 11:25; Stop 08/25/16 at 11:26; Status DC Enoxaparin Sodium (Lovenox 30mg Syringe) 30 mg QHS SQ Last administered on 08/25 21:24; Start 08/25/16 at 21:00; Stop 08/26/16 at 14:21; Status DC Sodium Chloride 3 ml 3 ml QSHIFT PRN IV AFTER MEDS AND BLOOD DRAWS; Start 08/25 at 11:30 Lactated Ringer's (Iv Lactated Ringers) 1,000 ml @ 100 mls/hr Q10H IV ; Start 08/25/16 at 11:30; Stop 08/26/16 at 09:11; Status DC Acetaminophen/ Hydrocodone Bitart (Lortab 5/325) 1 tab PRN Q4HRS PRN PO MILD PAIN Last administered on 09/02/16 02:58; Start 08/25/16 at 11:30 Hydromorphone HCl (Dilaudid) 0.2 mg PRN Q1HR PRN IV PAIN Last administered on 17:20; Start 08/25/16 at 11:30 Docusate Sodium (Colace) 100 mg BID PO Last administered on 09/01/16 22:01; Start 08/25/16 at 21:00 Ondansetron HCl (Zofran) 4 mg PRN Q6HRS PRN IV NAUESA, 1ST CHOICE Last administered on 08/31/16 08:39; Start 08/25/16 at 11:30 Insulin Human Regular 3 unit 3 unit 1X ONCE IV Last administered on 08/25/16 12:49; Start 08/25/16 at 12:45; Stop 08/25/16 at 12:46; Status DC Magnesium Sulfate/ Dextrose (Magnesium Sulfate PREMIX 2GM) 50 ml @ 25 mls/hr PRN DAILY PRN IV for Mag < 1.7 on am labs; Start 08/25/16 at 17:45 Hydralazine HCl 20 mg 20 mg PRN Q4HRS PRN IVP ELEVATED BP, SEE COMMENTS; Start 08/25/16 at 17:45 Sodium Chloride 1,000 ml @ 1,000 mls/hr Q1H PRN IV hypotension; Start 08/26/16 at 09:00; Stop 08/26/16 at 14:59; Status DC Sodium Chloride (Iv Sodium Chloride 0.9% 1000ml Bag) 1,000 ml @ 400 mls/hr Q2H30M PRN IV PATENCY; Start 08/26/16 at 09:00; Stop 08/26/16 at 20:59; Status DC Info (PHARMACY MONITORING -- do not chart) 1 each PRN DAILY PRN MC SEE COMMENTS ; Start 08/26/16 at 10:00 Heparin Sodium (Porcine) 5000 unit 5,000 unit Q8HRS SQ Last administered on 05:55; Start 08/26/16 at 22:00 Magnesium Sulfate/ Dextrose (Magnesium Sulfate PREMIX 2GM) 50 ml @ 25 mls/hr 1X ONCE IV Last administered on 08/26/16 21:34; Start 08/26/16 at 21:30; Stop 08/26/16 at 23:29; Status DC Allopurinol (Zyloprim) 300 mg DAILY PO Last administered on 08/27/16 16:06; Start 08/27/16 at 16:00; Stop 08/28/16 at 11:11; Status DC Aspirin (Children'S Aspirin) 81 mg DAILY PO Last administered on 09/01/16 08: 45; Start 08/27/16 at 16:00 Calcium Acetate (Phoslo) 667 mg TIDWMEALS PO Last administered on 09/01/16 16: 58; Start 08/27/16 at 17:00 Digoxin (Lanoxin) 125 mcg DAILY PO Last administered on 09/02/16 09:00; Start 08/27/16 at 16:00 Folic Acid/ Multivitamins/Vit B12 (Nephro-Mouna) 1 tab DAILY PO Last administered on 09/01/16 08:46; Start 08/27/16 at 16:00 Gabapentin (Neurontin) 100 mg BID PO Last administered on 09/01/16 22:01; Start 08/27/16 at 21:00 Nitroglycerin (Nitrostat) 0.4 mg PRN Q5MIN PRN SL CHEST PAIN; Start 08/27/16 at 15:30 Oxycodone/ Acetaminophen (Percocet 7.5/ 325) 1 tab PRN TID PRN PO MODERATE PAIN ; Start 08/27/16 at 15:30 Polyethylene Glycol (miraLAX PACKET) 17 gm PRN BID PRN PO CONSTIPATION Last administered on 08/29/16 08:58; Start 08/28/16 at 09:00 Ranolazine (Ranexa) 500 mg DAILY PO Last administered on 09/02/16 09:00; Start 08/27/16 at 16:00 Tamsulosin HCl (Flomax) 0.4 mg QHS PO Last administered on 09/01/16 22:01; Start 08/27/16 at 21:00 Insulin Detemir (Levemir) 30 units BIDWMEALS SQ Last administered on 08/27/16 17:34; Start 08/27/16 at 17:00; Stop 08/28/16 at 09:01; Status DC Albuterol Sulfate (Ventolin Neb Soln) 2.5 mg RTQID NEB Last administered on 07:29; Start 08/27/16 at 16:00 Budesonide 0.5 mg 0.5 mg RTBID NEB Last administered on 09/02/16 07:29; Start 08/27/16 at 20:00 Sodium Chloride 1,000 ml @ 1,000 mls/hr Q1H PRN IV hypotension; Start 08/28/16 at 07:46; Stop 08/28/16 at 13:45; Status DC Albumin Human (Albuminar) 200 ml @ 200 mls/hr 1X PRN PRN IV Hypotension; Start 08/28/16 at 08:00; Stop 08/28/16 at 13:59; Status DC Diphenhydramine HCl 25 mg 25 mg 1X PRN PRN IV ITCHING; Start 08/28/16 at 08:00 ; Stop 08/29/16 at 07:59; Status DC Sodium Chloride (Iv Sodium Chloride 0.9% 1000ml Bag) 1,000 ml @ 400 mls/hr Q2H30M PRN IV PATENCY; Start 08/28/16 at 07:46; Stop 08/28/16 at 19:45; Status DC Info (PHARMACY MONITORING -- do not chart) 1 each PRN DAILY PRN MC SEE COMMENTS ; Start 08/28/16 at 08:00; Stop 08/28/16 at 08:00; Status DC Info (PHARMACY MONITORING -- do not chart) 1 each PRN DAILY PRN MC SEE COMMENTS ; Start 08/28/16 at 08:00; Stop 08/28/16 at 08:00; Status DC Lidocaine HCl (Xylocaine-Mpf 1% Vial) 2 ml 1X ONCE INJ Last administered on 08:51; Start 08/28/16 at 08:00; Stop 08/28/16 at 08:01; Status DC Insulin Detemir (Levemir) 20 units BIDWMEALS SQ Last administered on 08/28/16 16:33; Start 08/28/16 at 17:00; Stop 08/29/16 at 12:14; Status DC Allopurinol (Zyloprim) 300 mg Q48H PO Last administered on 08/29/16 08:59; Start 08/29/16 at 09:00 Dextrose 12.5 gm PRN Q15MIN PRN IV SEE COMMENTS; Start 08/28/16 at 11:30 Insulin Detemir (Levemir) 16 units BIDWMEALS SQ ; Start 08/29/16 at 17:00; Status UNV Insulin Detemir (Levemir) 16 units 1X ONCE SQ Last administered on 08/29/16 12:17; Start 08/29/16 at 12:15; Stop 08/29/16 at 12:19; Status DC Insulin Detemir (Levemir) 16 units BIDWMEALS SQ Last administered on 08/30/16 17:03; Start 08/29/16 at 17:00; Stop 08/31/16 at 08:30; Status DC Budesonide (Pulmicort) 0.5 mg 1X ONCE NEB ; Start 08/31/16 at 00:15; Stop 08/31 at 00:16; Status DC Albuterol/ Ipratropium (Duoneb) 3 ml 1X ONCE NEB Last administered on 1/23/ 17at 00:08; Start 08/31/16 at 00:15; Stop 08/31/16 at 00:16; Status DC Insulin Detemir 14 units 14 units BIDWMEALS SQ Last administered on 09/01/16 18:07; Start 08/31/16 at 09:00 Sodium Chloride (Iv Sodium Chloride 0.9% 1000ml Bag) 1,000 ml @ 1,000 mls/hr Q1H PRN IV hypotension; Start 08/31/16 at 08:41; Stop 08/31/16 at 14:40; Status DC Diphenhydramine HCl (Benadryl) 25 mg 1X PRN PRN IV ITCHING; Start 08/31/16 at 08:45; Stop 08/31/16 at 18:00; Status DC Diphenhydramine HCl (Benadryl) 25 mg 1X PRN PRN IV ITCHING; Start 08/31/16 at 08:45; Stop 08/31/16 at 18:00; Status DC Labetalol HCl 10 mg 10 mg PRN Q1HR PRN IVP SBP > 180; Start 08/31/16 at 08:45; Stop 08/31/16 at 18:00; Status DC Sodium Chloride (Iv Sodium Chloride 0.9% 1000ml Bag) 1,000 ml @ 400 mls/hr Q2H30M PRN IV PATENCY; Start 08/31/16 at 08:41; Stop 08/31/16 at 20:40; Status DC Info (PHARMACY MONITORING -- do not chart) 1 each PRN DAILY PRN MC SEE COMMENTS ; Start 08/31/16 at 08:45; Status Cancel Iohexol (Omnipaque 240 Mg/ml) 50 ml 1X ONCE PO Last administered on 08/31/16 16:16; Start 08/31/16 at 15:30; Stop 08/31/16 at 15:31; Status DC Acetaminophen 500 mg 500 mg PRN Q6HRS PRN PO MILD PAIN / TEMP Last administered on 08/31/16 23:43; Start 08/31/16 at 16:00 Piperacillin Sod/ Tazobactam Sod/ Sodium Chloride (Zosyn/Iv Sodium Chloride 0.9 % 50ml) 50 ml @ 100 mls/hr Q8HRS IV Last administered on 09/02/16 05:55; Start 08/31/16 at 22:00 Vancomycin HCl (Vanco Per Pharmacy) 1 each PRN DAILY PRN MC SEE COMMENTS Last administered on 09/01/16 15:04; Start 08/31/16 at 18:15 Tobramycin Sulfate 1 each 1 each PRN DAILY PRN MC SEE COMMENTS; Start 08/31/16 at 18:15; Stop 09/01/16 at 09:25; Status DC Vancomycin HCl/ Sodium Chloride (Iv Sodium Chloride 0.9% 500ml Bag) 500 ml @ 250 mls/hr 1X ONCE IV Last administered on 08/31/16 21:39; Start 08/31/16 at 18:30; Stop 08/31/16 at 20:29; Status DC Vancomycin HCl 1 each 1 each PRN DAILY PRN MC SEE COMMENTS; Start 08/31/16 at 18:15; Status UNV Piperacillin Sod/ Tazobactam Sod/ Sodium Chloride (Zosyn/Iv Sodium Chloride 0.9 % 50ml) 50 ml @ 100 mls/hr Q8HRS IV ; Start 08/31/16 at 22:00; Status UNV Tobramycin Sulfate (Nebcin Per Pharmacy) 1 each PRN DAILY PRN MC SEE COMMENTS; Start 08/31/16 at 18:15; Status UNV Vancomycin HCl 1 each 1 each 1X ONCE MC ; Start 09/02/16 at 05:00; Stop at 05:01; Status Cancel Tobramycin Sulfate/Sodium Chloride (Nebcin/Iv Sodium Chloride 0.9% 50ml) 53.75 ml @ 104 mls/hr 1X ONCE IV Last administered on 08/31/16 18:55; Start at 18:30; Stop 08/31/16 at 19:01; Status DC Tobramycin Sulfate 1 each 1X ONCE MC ; Start 09/02/16 at 05:00; Stop 09/02/16 at 05:00; Status DC Darbepoetin Jackson (Aranesp) 60 mcg WEEKLYHS SQ Last administered on 09/01/16 22 :02; Start 09/01/16 at 21:00 Vancomycin HCl 1 each 1 each 1X ONCE MC Last administered on 09/02/16 05:00; Start 09/02/16 at 05:00; Stop 09/02/16 at 05:01; Status DC Sodium Chloride (Iv Sodium Chloride 0.9% 1000ml Bag) 1,000 ml @ 1,000 mls/hr Q1H PRN IV hypotension; Start 09/02/16 at 09:10; Stop 09/02/16 at 15:09 Diphenhydramine HCl (Benadryl) 25 mg 1X PRN PRN IV ITCHING; Start 09/02/16 at 09:15; Stop 09/03/16 at 09:14 Diphenhydramine HCl 25 mg 25 mg 1X PRN PRN IV ITCHING; Start 09/02/16 at 09:15 ; Stop 09/03/16 at 09:14; Status UNV Sodium Chloride (Iv Sodium Chloride 0.9% 1000ml Bag) 1,000 ml @ 400 mls/hr Q2H30M PRN IV PATENCY; Start 09/02/16 at 09:10; Stop 09/02/16 at 21:09; Status UNV Info (PHARMACY MONITORING -- do not chart) 1 each PRN DAILY PRN MC SEE COMMENTS ; Start 09/02/16 at 09:15; Status UNV Info (PHARMACY MONITORING -- do not chart) 1 each PRN DAILY PRN MC SEE COMMENTS ; Start 09/02/16 at 09:15; Status UNV Info (PHARMACY MONITORING -- do not chart) 1 each PRN DAILY PRN MC SEE COMMENTS ; Start 09/02/16 at 09:15; Status UNV Active Scripts Active Reported Gabapentin 100 Mg Capsule 100 Mg PO BID Ranexa (Ranolazine) 500 Mg Tab.er.12h 1 Tab PO DAILY Phoslo (Calcium Acetate) 667 Mg Capsule 667 Mg PO TIDWMEALS Polyethylene Glycol 3350 255 Gm Powder 17 Gm PO DAILY PRN Anoro Ellipta 62.5-25 Mcg Inh (Umeclidinium Brm/Vilanterol Tr) 1 Each Disk.w.dev 1 Each IH DAILY Clopidogrel (Clopidogrel Bisulfate) 75 Mg Tablet 1 Tab PO DAILY Percocet 7.5-325 Mg Tablet (Oxycodone/Acetaminophen) 1 Each Tablet 1 Tab PO TID PRN Dialyvite 800 Tablet (Folic Acid/Vitamin B Comp W-C) 0.8 Mg Tablet 0.8 Mg PO DAILY NITROGLYCERIN SubLingual (Nitroglycerin) 0.4 Mg Tab.subl 0.4 Mg SL PRN Humulin 70-30 Vial (Hum Insulin Nph/Reg Insulin Hm) 100 Unit/1 Ml Vial 30 Unit SQ BIDWMEALS Allopurinol 300 Mg Tablet 300 Mg PO DAILY Pepcid (Famotidine) 20 Mg Tablet 20 Mg PO QHS Lanoxin (Digoxin) 125 Mcg Tablet 125 Mcg PO DAILY Flomax (Tamsulosin Hcl) 0.4 Mg Cap.er.24h 0.4 Mg PO HS Aspirin 81 Mg Tab.chew 81 Mg PO DAILY Vitals/I & O Vital Sign - Last 24 Hours 09/01/16 09/01/16 09/01/16 09/01/16 09:55 11:00 11:43 15:00 Temp 97.1 97.5 97.1 97.5 Pulse 61 60 Resp 18 18 B/P 98/47 107/51 Pulse Ox 96 98 99 99 O2 Delivery Nasal Cannula Nasal Cannula Nasal Cannula O2 Flow Rate 2.0 2.0 1.0 09/01/16 09/01/16 09/01/16 09/01/16 15:02 15:42 16:02 19:00 Temp 97.7 97.7 Pulse 68 Resp 18 B/P 112/51 Pulse Ox 99 99 96 O2 Delivery Nasal Cannula Nasal Cannula Nasal Cannula O2 Flow Rate 2.0 1.0 1.0 1.0 09/01/16 09/01/16 09/01/16 09/01/16 19:30 20:23 20:30 23:00 Temp 98.0 98.3 98.0 98.3 Pulse 60 69 Resp 20 18 B/P 98/45 105/51 Pulse Ox 99 95 99 O2 Delivery Nasal Cannula Nasal Cannula Room Air Nasal Cannula O2 Flow Rate 1.0 1.0 1.0 09/02/16 09/02/16 09/02/16 09/02/16 02:58 03:00 03:58 07:15 Temp 99.4 98.4 99.4 98.4 Pulse 91 79 Resp 18 16 B/P 129/62 109/55 Pulse Ox 95 96 O2 Delivery Nasal Cannula Nasal Cannula Nasal Cannula Nasal Cannula O2 Flow Rate 1.0 1.0 09/02/16 09/02/16 09/02/16 09/02/16 07:31 07:44 09:00 09:00 Pulse 79 79 B/P 109/55 109/55 Pulse Ox 98 98 O2 Delivery Nasal Cannula Nasal Cannula O2 Flow Rate 1.0 1.0 Intake and Output 09/01/16 09/01/16 09/02/16 15:00 23:00 07:00 Intake Total 50 ml Output Total 0 ml 0 ml Balance 50 ml 0 ml LEXI ALTAMIRANO MD Sep 02, 2016 09:57
--- NOTE | 2016-09-02 10:53 | PDOC ---
Renal-Progress Notes Subjective Notes Notes BETTER BUT STILL HAVING SOME INCISIONAL PAIN. NO MORE FEVERS History of Present Illness Hx of present illness BETTER Vitals Vitals Vital Signs Date Time Temp Pulse Resp B/P Pulse Ox O2 Delivery O2 Flow Rate FiO2 09/02/16 09:00 79 109/55 09/02/16 07:44 98 Nasal Cannula 1.0 09/02/16 07:15 98.4 16 98.4 Weight Weight [ ] I.O. Intake and Output Intake and Output 09/02/16 07:00 Intake Total 50 ml Output Total 0 ml Balance 50 ml Intake Oral 0 ml IV Total 50 ml Output Urine Total 0 ml # Voids 1 # Bowel Movements 1 Labs Labs Laboratory Tests Test 09/01/16 11:35 09/01/16 16:02 09/01/16 20:50 09/02/16 04:20 Glucose (Fingerstick) 141mg/dL (70-99) 125mg/dL (70-99) 195mg/dL (70-99) White Blood Count 12.2x10^3/uL (4.0-11.0) Red Blood Count 2.97x10^6/uL (4.30-5.70) Hemoglobin 9.6g/dL (13.0-17.5) Hematocrit 29.0% (39.0-53.0) Mean Corpuscular Volume 98fL (79-100) Mean Corpuscular Hemoglobin 33pg (25-35) Mean Corpuscular Hemoglobin Concent 33g/dL (31-37) Red Cell Distribution Width 14.7% (11.5-14.5) Platelet Count 86x10^3/uL (140-400) Neutrophils (%) (Auto) 84% (31-73) Lymphocytes (%) (Auto) 6% (24-48) Monocytes (%) (Auto) 9% (0-9) Eosinophils (%) (Auto) 1% (0-3) Basophils (%) (Auto) 1% (0-3) Neutrophils # (Auto) 10.2x10^3uL (1.8-7.7) Lymphocytes # (Auto) 0.7x10^3/uL (1.0-4.8) Monocytes # (Auto) 1.0x10^3/uL (0.0-1.1) Eosinophils # (Auto) 0.1x10^3/uL (0.0-0.7) Basophils # (Auto) 0.1x10^3/uL (0.0-0.2) Sodium Level 136mmol/L (136-145) Potassium Level 4.6mmol/L (3.5-5.1) Chloride Level 97mmol/L (98-107) Carbon Dioxide Level 26mmol/L (21-32) Anion Gap 13 (6-14) Blood Urea Nitrogen 52mg/dL (8-26) Creatinine 6.9mg/dL (0.7-1.3) Estimated GFR (Cockcroft-Gault) 8.0 Glucose Level 103mg/dL (70-99) Calcium Level 7.8mg/dL (8.5-10.1) Random Vancomycin Level 24.2mcg/mL Test 09/02/16 07:42 Glucose (Fingerstick) 111mg/dL (70-99) Micro Micro Microbiology 08/31/16 Blood Culture - Preliminary, Resulted NO GROWTH AFTER 1 DAY Review of Systems Constitutional: yes: alert, oriented, weakness Ears/Nose/Throat: Yes: no symptom reported Eyes: Yes: no symptom reported Pulmonary: Yes no symptom reported Cardiovascular: Yes no symptom reported Gastrointestional: Yes: no symptom reported Genitourinary: Yes: no symptom reported Skin: Yes no symptom reported Physical Exam General Appearance: no apparent distress Skin: warm Respiratory: bilateral CTA Heart: S1S2, RRR Abdomen: soft, bowel sounds present Extremities: pulses present Neurology: alert Musculoskeletal: Muscle atrophy, Weakness Assessment Assessment IMP ESRD ANEMIA S/P RIGHT NEPHRECTOMY PLAN HD TODAY UF TO DW PATH PENDING NAVIN ACEVEDO MD Sep 02, 2016 10:53
--- NOTE | 2016-09-02 11:31 | PDOC ---
Infectious Disease Note Subjective Subjective Some better. + BM. Stomach still not right but can't explain. No pain/N/V/D/ Constipation ROS ROS GEN: Denies fevers, chills, sweats HEENT: Denies blurred vision, sore throat CV: Denies chest pain RESP: Denies shortness of air, cough NEURO: Denies confusion, dizziness MSK: Denies weakness, joint pain/swelling Vital Sign Vital Signs Vital Signs Date Time Temp Pulse Resp B/P Pulse Ox O2 Delivery O2 Flow Rate FiO2 09/02/16 09:00 79 109/55 09/02/16 07:44 98 Nasal Cannula 1.0 09/02/16 07:15 98.4 16 98.4 Physical Exam PHYSICAL EXAM GENERAL: NAD, Alert in HD HEENT: PERRL, OC/OP - clear NECK: Supple, no JVD, no LN LUNGS: Clear HEART: S1S2, no gallop, no murmur ABD: Soft, NT, no organomegaly, no rebound EXT: No edema, no cyanosis TANK 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: Alert, oriented x 3, no focal neurologic deficit SKIN: No rash IV: Fistula ok Labs Lab Laboratory Tests Test 09/01/16 11:35 09/01/16 16:02 09/01/16 20:50 09/02/16 04:20 Glucose (Fingerstick) 141mg/dL (70-99) 125mg/dL (70-99) 195mg/dL (70-99) White Blood Count 12.2x10^3/uL (4.0-11.0) Red Blood Count 2.97x10^6/uL (4.30-5.70) Hemoglobin 9.6g/dL (13.0-17.5) Hematocrit 29.0% (39.0-53.0) Mean Corpuscular Volume 98fL (79-100) Mean Corpuscular Hemoglobin 33pg (25-35) Mean Corpuscular Hemoglobin Concent 33g/dL (31-37) Red Cell Distribution Width 14.7% (11.5-14.5) Platelet Count 86x10^3/uL (140-400) Neutrophils (%) (Auto) 84% (31-73) Lymphocytes (%) (Auto) 6% (24-48) Monocytes (%) (Auto) 9% (0-9) Eosinophils (%) (Auto) 1% (0-3) Basophils (%) (Auto) 1% (0-3) Neutrophils # (Auto) 10.2x10^3uL (1.8-7.7) Lymphocytes # (Auto) 0.7x10^3/uL (1.0-4.8) Monocytes # (Auto) 1.0x10^3/uL (0.0-1.1) Eosinophils # (Auto) 0.1x10^3/uL (0.0-0.7) Basophils # (Auto) 0.1x10^3/uL (0.0-0.2) Sodium Level 136mmol/L (136-145) Potassium Level 4.6mmol/L (3.5-5.1) Chloride Level 97mmol/L (98-107) Carbon Dioxide Level 26mmol/L (21-32) Anion Gap 13 (6-14) Blood Urea Nitrogen 52mg/dL (8-26) Creatinine 6.9mg/dL (0.7-1.3) Estimated GFR (Cockcroft-Gault) 8.0 Glucose Level 103mg/dL (70-99) Calcium Level 7.8mg/dL (8.5-10.1) Random Vancomycin Level 24.2mcg/mL Test 09/02/16 07:42 Glucose (Fingerstick) 111mg/dL (70-99) Objective Assessment Fever - better - elevated Procalcitonin. Flu neg. CT 08/31 - neg Leukocytosis - better Abd pain - better with BM this am CKD on HD Left foot ulcer - does not look infected. 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 Plan Plan of Care F/u blood cults Cont Vanc/Zosyn (Tobra times one 08/31) F/u labs/cults and response ZACHARY MOSQUERA MD Sep 02, 2016 11:31
[2016-09-02] MEDS: VANCOMYCIN PER PHARMACY MC PRN ×2 (13:04→13:05)
[2016-09-02] MEDS: ASPIRIN 81 MG TAB.CHEW PO SCH (14:35)
[2016-09-02] MEDS: FOLIC/VIT B COMP W-C (RENAL) TABLET. PO SCH (14:35)
[2016-09-02] MEDS: GABAPENTIN 100 MG CAPSULE. PO SCH ×2 (14:35→21:27)
[2016-09-02] MEDS: DOCUSATE SODIUM 100 MG CAPSULE PO SCH ×2 (14:35→20:00)
[2016-09-02] MEDS: ALLOPURINOL 300 MG TABLET. PO SCH (14:35)
[2016-09-02 15:15] VITALS: BP 107/38
[2016-09-02] MEDS: ONDANSETRON PF 4 MG/2 ML VIAL. IV PRN (16:22)
--- NOTE | 2016-09-02 16:30 | PDOC ---
SURGICAL PROGRESS NOTE Subjective Pt feels better then yesterday, still mild nausea, bowels running through Vital Signs Vital Signs Date Time Temp Pulse Resp B/P Pulse Ox O2 Delivery O2 Flow Rate FiO2 09/02/16 15:48 Nasal Cannula 1.0 09/02/16 15:15 99.3 94 18 107/38 95 99.3 I&O Intake and Output 09/02/16 07:00 Intake Total 50 ml Output Total 0 ml Balance 50 ml Intake Oral 0 ml IV Total 50 ml Output Urine Total 0 ml # Voids 1 # Bowel Movements 1 General: Alert, Oriented X3, Cooperative, No acute distress Abdomen: Soft, No tenderness Labs Laboratory Tests Test 08/31/16 16:46 08/31/16 19:30 08/31/16 20:21 09/01/16 04:00 Glucose (Fingerstick) 126mg/dL (70-99) 179mg/dL (70-99) Influenza Type A Antigen Negative (NEGATIVE) Influenza Type B Antigen Negative (NEGATIVE) White Blood Count 12.9x10^3/uL (4.0-11.0) Red Blood Count 3.04x10^6/uL (4.30-5.70) Hemoglobin 9.9g/dL (13.0-17.5) Hematocrit 30.8% (39.0-53.0) Mean Corpuscular Volume 101fL (79-100) Mean Corpuscular Hemoglobin 33pg (25-35) Mean Corpuscular Hemoglobin Concent 32g/dL (31-37) Red Cell Distribution Width 15.1% (11.5-14.5) Platelet Count 80x10^3/uL (140-400) Neutrophils (%) (Auto) 83% (31-73) Lymphocytes (%) (Auto) 8% (24-48) Monocytes (%) (Auto) 8% (0-9) Eosinophils (%) (Auto) 0% (0-3) Basophils (%) (Auto) 0% (0-3) Neutrophils # (Auto) 10.7x10^3uL (1.8-7.7) Lymphocytes # (Auto) 1.1x10^3/uL (1.0-4.8) Monocytes # (Auto) 1.1x10^3/uL (0.0-1.1) Eosinophils # (Auto) 0.0x10^3/uL (0.0-0.7) Basophils # (Auto) 0.0x10^3/uL (0.0-0.2) Sodium Level 135mmol/L (136-145) Potassium Level 5.4mmol/L (3.5-5.1) Chloride Level 97mmol/L (98-107) Carbon Dioxide Level 27mmol/L (21-32) Anion Gap 11 (6-14) Blood Urea Nitrogen 33mg/dL (8-26) Creatinine 5.2mg/dL (0.7-1.3) Estimated GFR (Cockcroft-Gault) 11.1 Glucose Level 180mg/dL (70-99) Calcium Level 8.1mg/dL (8.5-10.1) Phosphorus Level 4.0mg/dL (2.6-4.7) Albumin 2.4g/dL (3.4-5.0) Procalcitonin 24.92ng/mL (0.00-0.10) Test 09/01/16 08:38 09/01/16 11:35 09/01/16 16:02 09/01/16 20:50 Glucose (Fingerstick) 187mg/dL (70-99) 141mg/dL (70-99) 125mg/dL (70-99) 195mg/dL (70-99) Test 09/02/16 04:20 09/02/16 07:42 09/02/16 14:13 White Blood Count 12.2x10^3/uL (4.0-11.0) Red Blood Count 2.97x10^6/uL (4.30-5.70) Hemoglobin 9.6g/dL (13.0-17.5) Hematocrit 29.0% (39.0-53.0) Mean Corpuscular Volume 98fL (79-100) Mean Corpuscular Hemoglobin 33pg (25-35) Mean Corpuscular Hemoglobin Concent 33g/dL (31-37) Red Cell Distribution Width 14.7% (11.5-14.5) Platelet Count 86x10^3/uL (140-400) Neutrophils (%) (Auto) 84% (31-73) Lymphocytes (%) (Auto) 6% (24-48) Monocytes (%) (Auto) 9% (0-9) Eosinophils (%) (Auto) 1% (0-3) Basophils (%) (Auto) 1% (0-3) Neutrophils # (Auto) 10.2x10^3uL (1.8-7.7) Lymphocytes # (Auto) 0.7x10^3/uL (1.0-4.8) Monocytes # (Auto) 1.0x10^3/uL (0.0-1.1) Eosinophils # (Auto) 0.1x10^3/uL (0.0-0.7) Basophils # (Auto) 0.1x10^3/uL (0.0-0.2) Sodium Level 136mmol/L (136-145) Potassium Level 4.6mmol/L (3.5-5.1) Chloride Level 97mmol/L (98-107) Carbon Dioxide Level 26mmol/L (21-32) Anion Gap 13 (6-14) Blood Urea Nitrogen 52mg/dL (8-26) Creatinine 6.9mg/dL (0.7-1.3) Estimated GFR (Cockcroft-Gault) 8.0 Glucose Level 103mg/dL (70-99) Calcium Level 7.8mg/dL (8.5-10.1) Random Vancomycin Level 24.2mcg/mL Glucose (Fingerstick) 111mg/dL (70-99) 85mg/dL (70-99) Laboratory Tests Test 09/01/16 20:50 09/02/16 04:20 09/02/16 07:42 09/02/16 14:13 Glucose (Fingerstick) 195mg/dL (70-99) 111mg/dL (70-99) 85mg/dL (70-99) White Blood Count 12.2x10^3/uL (4.0-11.0) Red Blood Count 2.97x10^6/uL (4.30-5.70) Hemoglobin 9.6g/dL (13.0-17.5) Hematocrit 29.0% (39.0-53.0) Mean Corpuscular Volume 98fL (79-100) Mean Corpuscular Hemoglobin 33pg (25-35) Mean Corpuscular Hemoglobin Concent 33g/dL (31-37) Red Cell Distribution Width 14.7% (11.5-14.5) Platelet Count 86x10^3/uL (140-400) Neutrophils (%) (Auto) 84% (31-73) Lymphocytes (%) (Auto) 6% (24-48) Monocytes (%) (Auto) 9% (0-9) Eosinophils (%) (Auto) 1% (0-3) Basophils (%) (Auto) 1% (0-3) Neutrophils # (Auto) 10.2x10^3uL (1.8-7.7) Lymphocytes # (Auto) 0.7x10^3/uL (1.0-4.8) Monocytes # (Auto) 1.0x10^3/uL (0.0-1.1) Eosinophils # (Auto) 0.1x10^3/uL (0.0-0.7) Basophils # (Auto) 0.1x10^3/uL (0.0-0.2) Sodium Level 136mmol/L (136-145) Potassium Level 4.6mmol/L (3.5-5.1) Chloride Level 97mmol/L (98-107) Carbon Dioxide Level 26mmol/L (21-32) Anion Gap 13 (6-14) Blood Urea Nitrogen 52mg/dL (8-26) Creatinine 6.9mg/dL (0.7-1.3) Estimated GFR (Cockcroft-Gault) 8.0 Glucose Level 103mg/dL (70-99) Calcium Level 7.8mg/dL (8.5-10.1) Random Vancomycin Level 24.2mcg/mL Problem List Problems Medical Problems: (1) Retroperitoneal mass Status: Acute Assessment/Plan s/p resection FILEMON cont supportive care path appears to be benign Problems: BEATA HARDY MD Sep 02, 2016 16:30
[2016-09-02 19:10] VITALS: BP 107/47
[2016-09-02] MEDS ORDERED: MAGNESIUM SULFATE 2GM 50 ML IV ONE (19:45)
[2016-09-02] MEDS: TAMSULOSIN 0.4 MG CAP.ER.24H. PO SCH (21:27)
[2016-09-02 23:10] VITALS: BP 110/50
[2016-09-03 03:10] VITALS: BP 101/42
[2016-09-03 05:10] LABS: BASO % 1 % (0-3); EOS % 1 % (0-3); HEMOGLOBIN 9.3 g/dL (13.0-17.5); LYMPH # 0.7 x10^3/uL (1.0-4.8); LYMPH % 8 % (24-48); MEAN CORPUSCULAR HEMOGLOBIN 33 pg (25-35); MEAN CORPUSCULAR HGB CONC 32 g/dL (31-37); MEAN CORPUSCULAR VOLUME 101 fL (79-100); MONO % 9 % (0-9); NEUT % 81 % (31-73); PLATELET COUNT 88 x10^3/uL (140-400); RED BLOOD COUNT 2.87 x10^6/uL (4.30-5.70); RED CELL DISTRIBUTION WIDTH 14.8 % (11.5-14.5); WHITE BLOOD COUNT 8.8 x10^3/uL (4.0-11.0)
[2016-09-03 05:52] LABS: ALBUMIN 2.2 g/dL (3.4-5.0); ALBUMIN/GLOBULIN RATIO 0.5 (1.0-1.7); CALCIUM 8.4 mg/dL (8.5-10.1); CREATININE 4.4 mg/dL (0.7-1.3); GFR 13.5; MAGNESIUM 2.5 mg/dL (1.8-2.4); POTASSIUM 4.2 mmol/L (3.5-5.1); TOTAL BILIRUBIN 0.6 mg/dL (0.2-1.0); TOTAL PROTEIN 6.6 g/dL (6.4-8.2)
[2016-09-03] MEDS: PIPERACILLIN/TAZOBACTAM 2.25 GM in IV NORMAL SALINE 50ML 50 ML IV SCH ×3 (06:15→22:04)
[2016-09-03] MEDS: HEPARIN PF for SUB-Q USE 5,000 UNIT/0.5 ML VIAL. SQ SCH ×3 (06:19→21:24)
[2016-09-03 07:15] VITALS: BP 106/54
[2016-09-03] MEDS: BUDESONIDE 0.5 MG/2 ML NEBU NEB SCH ×2 (07:25→16:45)
[2016-09-03] MEDS: ALBUTEROL SULFATE 2.5 MG/3 ML NEBU. NEB SCH ×4 (07:25→20:17)
[2016-09-03] MEDS: DIGOXIN 125 MCG TABLET PO SCH (09:00)
[2016-09-03] MEDS: DOCUSATE SODIUM 100 MG CAPSULE PO SCH ×2 (09:00→21:00)
[2016-09-03] MEDS: GABAPENTIN 100 MG CAPSULE. PO SCH ×2 (09:13→21:24)
[2016-09-03] MEDS: CALCIUM ACETATE 667 MG CAPSULE PO SCH ×3 (09:13→18:00)
[2016-09-03] MEDS: RANOLAZINE 500 MG TAB.ER.12H PO SCH (09:13)
[2016-09-03] MEDS: ASPIRIN 81 MG TAB.CHEW PO SCH (09:13)
[2016-09-03] MEDS: INSULIN DETEMIR 300 UNITS/3 ML INSULN.PEN. SQ SCH ×2 (09:18→18:01)
--- NOTE | 2016-09-03 09:28 | PDOC ---
SURGICAL PROGRESS NOTE Subjective Pt reports fatigue, and concerned about not getting better, barbara PO, diarrhea, min abd pain Vital Signs Vital Signs Date Time Temp Pulse Resp B/P Pulse Ox O2 Delivery O2 Flow Rate FiO2 09/03/16 09:13 99 106/54 09/03/16 07:37 95 Nasal Cannula 1.0 09/03/16 07:15 98.2 16 98.2 I&O Intake and Output 09/03/16 07:00 Intake Total 1160 ml Balance 1160 ml Intake Oral 1060 ml IV Total 100 ml # Bowel Movements 4 General: Alert, Oriented X3, Cooperative, No acute distress Abdomen: Soft, No tenderness Labs Laboratory Tests Test 09/01/16 11:35 09/01/16 16:02 09/01/16 20:50 09/02/16 04:20 Glucose (Fingerstick) 141mg/dL (70-99) 125mg/dL (70-99) 195mg/dL (70-99) White Blood Count 12.2x10^3/uL (4.0-11.0) Red Blood Count 2.97x10^6/uL (4.30-5.70) Hemoglobin 9.6g/dL (13.0-17.5) Hematocrit 29.0% (39.0-53.0) Mean Corpuscular Volume 98fL (79-100) Mean Corpuscular Hemoglobin 33pg (25-35) Mean Corpuscular Hemoglobin Concent 33g/dL (31-37) Red Cell Distribution Width 14.7% (11.5-14.5) Platelet Count 86x10^3/uL (140-400) Neutrophils (%) (Auto) 84% (31-73) Lymphocytes (%) (Auto) 6% (24-48) Monocytes (%) (Auto) 9% (0-9) Eosinophils (%) (Auto) 1% (0-3) Basophils (%) (Auto) 1% (0-3) Neutrophils # (Auto) 10.2x10^3uL (1.8-7.7) Lymphocytes # (Auto) 0.7x10^3/uL (1.0-4.8) Monocytes # (Auto) 1.0x10^3/uL (0.0-1.1) Eosinophils # (Auto) 0.1x10^3/uL (0.0-0.7) Basophils # (Auto) 0.1x10^3/uL (0.0-0.2) Sodium Level 136mmol/L (136-145) Potassium Level 4.6mmol/L (3.5-5.1) Chloride Level 97mmol/L (98-107) Carbon Dioxide Level 26mmol/L (21-32) Anion Gap 13 (6-14) Blood Urea Nitrogen 52mg/dL (8-26) Creatinine 6.9mg/dL (0.7-1.3) Estimated GFR (Cockcroft-Gault) 8.0 Glucose Level 103mg/dL (70-99) Calcium Level 7.8mg/dL (8.5-10.1) Random Vancomycin Level 24.2mcg/mL Test 09/02/16 07:42 09/02/16 14:13 09/02/16 16:44 09/02/16 21:36 Glucose (Fingerstick) 111mg/dL (70-99) 85mg/dL (70-99) 149mg/dL (70-99) 217mg/dL (70-99) Test 09/03/16 04:50 09/03/16 07:02 White Blood Count 8.8x10^3/uL (4.0-11.0) Red Blood Count 2.87x10^6/uL (4.30-5.70) Hemoglobin 9.3g/dL (13.0-17.5) Hematocrit 29.0% (39.0-53.0) Mean Corpuscular Volume 101fL (79-100) Mean Corpuscular Hemoglobin 33pg (25-35) Mean Corpuscular Hemoglobin Concent 32g/dL (31-37) Red Cell Distribution Width 14.8% (11.5-14.5) Platelet Count 88x10^3/uL (140-400) Neutrophils (%) (Auto) 81% (31-73) Lymphocytes (%) (Auto) 8% (24-48) Monocytes (%) (Auto) 9% (0-9) Eosinophils (%) (Auto) 1% (0-3) Basophils (%) (Auto) 1% (0-3) Neutrophils # (Auto) 7.1x10^3uL (1.8-7.7) Lymphocytes # (Auto) 0.7x10^3/uL (1.0-4.8) Monocytes # (Auto) 0.8x10^3/uL (0.0-1.1) Eosinophils # (Auto) 0.1x10^3/uL (0.0-0.7) Basophils # (Auto) 0.0x10^3/uL (0.0-0.2) Sodium Level 135mmol/L (136-145) Potassium Level 4.2mmol/L (3.5-5.1) Chloride Level 97mmol/L (98-107) Carbon Dioxide Level 29mmol/L (21-32) Anion Gap 9 (6-14) Blood Urea Nitrogen 29mg/dL (8-26) Creatinine 4.4mg/dL (0.7-1.3) Estimated GFR (Cockcroft-Gault) 13.5 BUN/Creatinine Ratio 7 (6-20) Glucose Level 174mg/dL (70-99) Calcium Level 8.4mg/dL (8.5-10.1) Magnesium Level 2.5mg/dL (1.8-2.4) Total Bilirubin 0.6mg/dL (0.2-1.0) Aspartate Amino Transf (AST/SGOT) 39U/L (15-37) Alanine Aminotransferase (ALT/SGPT) 22U/L (16-63) Alkaline Phosphatase 151U/L (46-116) Total Protein 6.6g/dL (6.4-8.2) Albumin 2.2g/dL (3.4-5.0) Albumin/Globulin Ratio 0.5 (1.0-1.7) Glucose (Fingerstick) 152mg/dL (70-99) Laboratory Tests Test 09/02/16 14:13 09/02/16 16:44 09/02/16 21:36 09/03/16 04:50 Glucose (Fingerstick) 85mg/dL (70-99) 149mg/dL (70-99) 217mg/dL (70-99) White Blood Count 8.8x10^3/uL (4.0-11.0) Red Blood Count 2.87x10^6/uL (4.30-5.70) Hemoglobin 9.3g/dL (13.0-17.5) Hematocrit 29.0% (39.0-53.0) Mean Corpuscular Volume 101fL (79-100) Mean Corpuscular Hemoglobin 33pg (25-35) Mean Corpuscular Hemoglobin Concent 32g/dL (31-37) Red Cell Distribution Width 14.8% (11.5-14.5) Platelet Count 88x10^3/uL (140-400) Neutrophils (%) (Auto) 81% (31-73) Lymphocytes (%) (Auto) 8% (24-48) Monocytes (%) (Auto) 9% (0-9) Eosinophils (%) (Auto) 1% (0-3) Basophils (%) (Auto) 1% (0-3) Neutrophils # (Auto) 7.1x10^3uL (1.8-7.7) Lymphocytes # (Auto) 0.7x10^3/uL (1.0-4.8) Monocytes # (Auto) 0.8x10^3/uL (0.0-1.1) Eosinophils # (Auto) 0.1x10^3/uL (0.0-0.7) Basophils # (Auto) 0.0x10^3/uL (0.0-0.2) Sodium Level 135mmol/L (136-145) Potassium Level 4.2mmol/L (3.5-5.1) Chloride Level 97mmol/L (98-107) Carbon Dioxide Level 29mmol/L (21-32) Anion Gap 9 (6-14) Blood Urea Nitrogen 29mg/dL (8-26) Creatinine 4.4mg/dL (0.7-1.3) Estimated GFR (Cockcroft-Gault) 13.5 BUN/Creatinine Ratio 7 (6-20) Glucose Level 174mg/dL (70-99) Calcium Level 8.4mg/dL (8.5-10.1) Magnesium Level 2.5mg/dL (1.8-2.4) Total Bilirubin 0.6mg/dL (0.2-1.0) Aspartate Amino Transf (AST/SGOT) 39U/L (15-37) Alanine Aminotransferase (ALT/SGPT) 22U/L (16-63) Alkaline Phosphatase 151U/L (46-116) Total Protein 6.6g/dL (6.4-8.2) Albumin 2.2g/dL (3.4-5.0) Albumin/Globulin Ratio 0.5 (1.0-1.7) Test 09/03/16 07:02 Glucose (Fingerstick) 152mg/dL (70-99) Problem List Problems Medical Problems: (1) Retroperitoneal mass Status: Acute Assessment/Plan s/p resection appears to be improving cont supportive care Problems: BEATA HARDY MD Sep 03, 2016 09:28
[2016-09-03] MEDS: FOLIC/VIT B COMP W-C (RENAL) TABLET. PO SCH (10:23)
--- NOTE | 2016-09-03 10:41 | PDOC ---
Infectious Disease Note Subjective Subjective Some better. Had sweats last pm A little nausea and loose stool ROS ROS GEN: Denies fevers, chills, sweats HEENT: Denies blurred vision, sore throat CV: Denies chest pain RESP: Denies shortness of air, cough GI: Denies n/v/d NEURO: Denies confusion, dizziness MSK: Denies weakness, joint pain/swelling Vital Sign Vital Signs Vital Signs Date Time Temp Pulse Resp B/P Pulse Ox O2 Delivery O2 Flow Rate FiO2 09/03/16 09:13 99 106/54 09/03/16 08:00 Nasal Cannula 1.0 09/03/16 07:37 95 09/03/16 07:15 98.2 16 98.2 Physical Exam PHYSICAL EXAM GENERAL: NAD, Alert -looks better HEENT: PERRL, OC/OP- clear NECK: Supple, no JVD, no LN LUNGS: Clear HEART: S1S2, no gallop, no murmur ABD: Soft, NT, no organomegaly, no rebound EXT: No edema, no cyanosis 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: Alert, oriented x 3, no focal neurologic deficit SKIN: No rash IV: HD fistula - ok Labs Lab Laboratory Tests Test 09/02/16 14:13 09/02/16 16:44 09/02/16 21:36 09/03/16 04:50 Glucose (Fingerstick) 85mg/dL (70-99) 149mg/dL (70-99) 217mg/dL (70-99) White Blood Count 8.8x10^3/uL (4.0-11.0) Red Blood Count 2.87x10^6/uL (4.30-5.70) Hemoglobin 9.3g/dL (13.0-17.5) Hematocrit 29.0% (39.0-53.0) Mean Corpuscular Volume 101fL (79-100) Mean Corpuscular Hemoglobin 33pg (25-35) Mean Corpuscular Hemoglobin Concent 32g/dL (31-37) Red Cell Distribution Width 14.8% (11.5-14.5) Platelet Count 88x10^3/uL (140-400) Neutrophils (%) (Auto) 81% (31-73) Lymphocytes (%) (Auto) 8% (24-48) Monocytes (%) (Auto) 9% (0-9) Eosinophils (%) (Auto) 1% (0-3) Basophils (%) (Auto) 1% (0-3) Neutrophils # (Auto) 7.1x10^3uL (1.8-7.7) Lymphocytes # (Auto) 0.7x10^3/uL (1.0-4.8) Monocytes # (Auto) 0.8x10^3/uL (0.0-1.1) Eosinophils # (Auto) 0.1x10^3/uL (0.0-0.7) Basophils # (Auto) 0.0x10^3/uL (0.0-0.2) Sodium Level 135mmol/L (136-145) Potassium Level 4.2mmol/L (3.5-5.1) Chloride Level 97mmol/L (98-107) Carbon Dioxide Level 29mmol/L (21-32) Anion Gap 9 (6-14) Blood Urea Nitrogen 29mg/dL (8-26) Creatinine 4.4mg/dL (0.7-1.3) Estimated GFR (Cockcroft-Gault) 13.5 BUN/Creatinine Ratio 7 (6-20) Glucose Level 174mg/dL (70-99) Calcium Level 8.4mg/dL (8.5-10.1) Magnesium Level 2.5mg/dL (1.8-2.4) Total Bilirubin 0.6mg/dL (0.2-1.0) Aspartate Amino Transf (AST/SGOT) 39U/L (15-37) Alanine Aminotransferase (ALT/SGPT) 22U/L (16-63) Alkaline Phosphatase 151U/L (46-116) Total Protein 6.6g/dL (6.4-8.2) Albumin 2.2g/dL (3.4-5.0) Albumin/Globulin Ratio 0.5 (1.0-1.7) Test 09/03/16 07:02 Glucose (Fingerstick) 152mg/dL (70-99) Objective Assessment Fever - better - elevated Procalcitonin. Flu neg. CT 08/31 - neg. ? source Leukocytosis - better Abd pain - better CKD on HD Left foot ulcer - does not look infected. 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 Plan Plan of Care F/u blood cults Cont Vanc/Zosyn (Tobra times one 08/31) F/u labs/cults and response ZACHARY MOSQUERA MD Sep 03, 2016 10:41
--- NOTE | 2016-09-03 11:05 | PDOC ---
Renal-Progress Notes Subjective Notes Notes WEAK AND OCC DIARRHEA History of Present Illness Hx of present illness STABLE Vitals Vitals Vital Signs Date Time Temp Pulse Resp B/P Pulse Ox O2 Delivery O2 Flow Rate FiO2 09/03/16 09:13 99 106/54 09/03/16 08:00 Nasal Cannula 1.0 09/03/16 07:37 95 09/03/16 07:15 98.2 16 98.2 Weight Weight [ ] I.O. Intake and Output Intake and Output 09/03/16 07:00 Intake Total 1160 ml Balance 1160 ml Intake Oral 1060 ml IV Total 100 ml # Bowel Movements 4 Labs Labs Laboratory Tests Test 09/02/16 14:13 09/02/16 16:44 09/02/16 21:36 09/03/16 04:50 Glucose (Fingerstick) 85mg/dL (70-99) 149mg/dL (70-99) 217mg/dL (70-99) White Blood Count 8.8x10^3/uL (4.0-11.0) Red Blood Count 2.87x10^6/uL (4.30-5.70) Hemoglobin 9.3g/dL (13.0-17.5) Hematocrit 29.0% (39.0-53.0) Mean Corpuscular Volume 101fL (79-100) Mean Corpuscular Hemoglobin 33pg (25-35) Mean Corpuscular Hemoglobin Concent 32g/dL (31-37) Red Cell Distribution Width 14.8% (11.5-14.5) Platelet Count 88x10^3/uL (140-400) Neutrophils (%) (Auto) 81% (31-73) Lymphocytes (%) (Auto) 8% (24-48) Monocytes (%) (Auto) 9% (0-9) Eosinophils (%) (Auto) 1% (0-3) Basophils (%) (Auto) 1% (0-3) Neutrophils # (Auto) 7.1x10^3uL (1.8-7.7) Lymphocytes # (Auto) 0.7x10^3/uL (1.0-4.8) Monocytes # (Auto) 0.8x10^3/uL (0.0-1.1) Eosinophils # (Auto) 0.1x10^3/uL (0.0-0.7) Basophils # (Auto) 0.0x10^3/uL (0.0-0.2) Sodium Level 135mmol/L (136-145) Potassium Level 4.2mmol/L (3.5-5.1) Chloride Level 97mmol/L (98-107) Carbon Dioxide Level 29mmol/L (21-32) Anion Gap 9 (6-14) Blood Urea Nitrogen 29mg/dL (8-26) Creatinine 4.4mg/dL (0.7-1.3) Estimated GFR (Cockcroft-Gault) 13.5 BUN/Creatinine Ratio 7 (6-20) Glucose Level 174mg/dL (70-99) Calcium Level 8.4mg/dL (8.5-10.1) Magnesium Level 2.5mg/dL (1.8-2.4) Total Bilirubin 0.6mg/dL (0.2-1.0) Aspartate Amino Transf (AST/SGOT) 39U/L (15-37) Alanine Aminotransferase (ALT/SGPT) 22U/L (16-63) Alkaline Phosphatase 151U/L (46-116) Total Protein 6.6g/dL (6.4-8.2) Albumin 2.2g/dL (3.4-5.0) Albumin/Globulin Ratio 0.5 (1.0-1.7) Test 09/03/16 07:02 Glucose (Fingerstick) 152mg/dL (70-99) Micro Micro Microbiology 08/31/16 Blood Culture - Preliminary, Resulted NO GROWTH AFTER 2 DAYS Review of Systems Constitutional: yes: alert, oriented, weakness Ears/Nose/Throat: Yes: no symptom reported Eyes: Yes: no symptom reported Pulmonary: Yes no symptom reported Cardiovascular: Yes no symptom reported Gastrointestional: Yes: no symptom reported Genitourinary: Yes: no symptom reported Skin: Yes no symptom reported Physical Exam General Appearance: no apparent distress Skin: warm Respiratory: bilateral CTA Heart: S1S2, RRR Abdomen: soft, bowel sounds present Extremities: pulses present Neurology: alert Musculoskeletal: Muscle atrophy, Weakness Assessment Assessment IMP ESRD ANEMIA S/P RIGHT NEPHRECTOMY/REMOVAL OF RETROPERITONEAL MASS PLAN HD TOMORROW INCREASE ACTIVITY SURGERY FOLLOWING NAVIN ACEVEDO MD Sep 03, 2016 11:05
[2016-09-03 11:06] VITALS: BP 107/47
--- NOTE | 2016-09-03 11:57 | PDOC ---
PROGRESS NOTES Subjective Subjective PT A&Ox3, states that he is not feeling well today. C/o n/v/d. States fevers are better, but he just doesnt feel well. Denies having any difficulty breathing or chest pain. Objective Objective Vital Signs Date Time Temp Pulse Resp B/P Pulse Ox O2 Delivery O2 Flow Rate FiO2 09/03/16 11:32 Nasal Cannula 1.0 09/03/16 11:06 98.2 69 18 107/47 96 98.2 Intake and Output 09/03/16 07:00 Intake Total 1160 ml Balance 1160 ml Intake Oral 1060 ml IV Total 100 ml # Bowel Movements 4 Physical Exam Abdomen: Normal bowel sounds, Soft, No tenderness, No hepatosplenomegaly, No masses Heart: Regular rate, Normal S1, Normal S2, No murmurs, Gallops Extremities: No clubbing, No cyanosis, No edema, Normal pulses, No tenderness/ swelling General: Alert, Oriented X3, Cooperative, No acute distress Lungs: Other (Expiratory wheezes left lower base, otherwise CTA) Neck: Supple, No JVD, No thyromegaly Assessment Assessment Problems Medical Problems: (1) Retroperitoneal mass Status: Acute Plan Plan of Care Stable from a cardiac standpoint Continue with current plan of care Comment Review of Relevant I have reviewed the following items nicole (where applicable) has been applied. Labs Laboratory Tests Test 09/01/16 16:02 09/01/16 20:50 09/02/16 04:20 09/02/16 07:42 Glucose (Fingerstick) 125mg/dL (70-99) 195mg/dL (70-99) 111mg/dL (70-99) White Blood Count 12.2x10^3/uL (4.0-11.0) Red Blood Count 2.97x10^6/uL (4.30-5.70) Hemoglobin 9.6g/dL (13.0-17.5) Hematocrit 29.0% (39.0-53.0) Mean Corpuscular Volume 98fL (79-100) Mean Corpuscular Hemoglobin 33pg (25-35) Mean Corpuscular Hemoglobin Concent 33g/dL (31-37) Red Cell Distribution Width 14.7% (11.5-14.5) Platelet Count 86x10^3/uL (140-400) Neutrophils (%) (Auto) 84% (31-73) Lymphocytes (%) (Auto) 6% (24-48) Monocytes (%) (Auto) 9% (0-9) Eosinophils (%) (Auto) 1% (0-3) Basophils (%) (Auto) 1% (0-3) Neutrophils # (Auto) 10.2x10^3uL (1.8-7.7) Lymphocytes # (Auto) 0.7x10^3/uL (1.0-4.8) Monocytes # (Auto) 1.0x10^3/uL (0.0-1.1) Eosinophils # (Auto) 0.1x10^3/uL (0.0-0.7) Basophils # (Auto) 0.1x10^3/uL (0.0-0.2) Sodium Level 136mmol/L (136-145) Potassium Level 4.6mmol/L (3.5-5.1) Chloride Level 97mmol/L (98-107) Carbon Dioxide Level 26mmol/L (21-32) Anion Gap 13 (6-14) Blood Urea Nitrogen 52mg/dL (8-26) Creatinine 6.9mg/dL (0.7-1.3) Estimated GFR (Cockcroft-Gault) 8.0 Glucose Level 103mg/dL (70-99) Calcium Level 7.8mg/dL (8.5-10.1) Random Vancomycin Level 24.2mcg/mL Test 09/02/16 14:13 09/02/16 16:44 09/02/16 21:36 09/03/16 04:50 Glucose (Fingerstick) 85mg/dL (70-99) 149mg/dL (70-99) 217mg/dL (70-99) White Blood Count 8.8x10^3/uL (4.0-11.0) Red Blood Count 2.87x10^6/uL (4.30-5.70) Hemoglobin 9.3g/dL (13.0-17.5) Hematocrit 29.0% (39.0-53.0) Mean Corpuscular Volume 101fL (79-100) Mean Corpuscular Hemoglobin 33pg (25-35) Mean Corpuscular Hemoglobin Concent 32g/dL (31-37) Red Cell Distribution Width 14.8% (11.5-14.5) Platelet Count 88x10^3/uL (140-400) Neutrophils (%) (Auto) 81% (31-73) Lymphocytes (%) (Auto) 8% (24-48) Monocytes (%) (Auto) 9% (0-9) Eosinophils (%) (Auto) 1% (0-3) Basophils (%) (Auto) 1% (0-3) Neutrophils # (Auto) 7.1x10^3uL (1.8-7.7) Lymphocytes # (Auto) 0.7x10^3/uL (1.0-4.8) Monocytes # (Auto) 0.8x10^3/uL (0.0-1.1) Eosinophils # (Auto) 0.1x10^3/uL (0.0-0.7) Basophils # (Auto) 0.0x10^3/uL (0.0-0.2) Sodium Level 135mmol/L (136-145) Potassium Level 4.2mmol/L (3.5-5.1) Chloride Level 97mmol/L (98-107) Carbon Dioxide Level 29mmol/L (21-32) Anion Gap 9 (6-14) Blood Urea Nitrogen 29mg/dL (8-26) Creatinine 4.4mg/dL (0.7-1.3) Estimated GFR (Cockcroft-Gault) 13.5 BUN/Creatinine Ratio 7 (6-20) Glucose Level 174mg/dL (70-99) Calcium Level 8.4mg/dL (8.5-10.1) Magnesium Level 2.5mg/dL (1.8-2.4) Total Bilirubin 0.6mg/dL (0.2-1.0) Aspartate Amino Transf (AST/SGOT) 39U/L (15-37) Alanine Aminotransferase (ALT/SGPT) 22U/L (16-63) Alkaline Phosphatase 151U/L (46-116) Total Protein 6.6g/dL (6.4-8.2) Albumin 2.2g/dL (3.4-5.0) Albumin/Globulin Ratio 0.5 (1.0-1.7) Test 09/03/16 07:02 09/03/16 11:10 Glucose (Fingerstick) 152mg/dL (70-99) 225mg/dL (70-99) Laboratory Tests Test 09/02/16 14:13 09/02/16 16:44 09/02/16 21:36 09/03/16 04:50 Glucose (Fingerstick) 85mg/dL (70-99) 149mg/dL (70-99) 217mg/dL (70-99) White Blood Count 8.8x10^3/uL (4.0-11.0) Red Blood Count 2.87x10^6/uL (4.30-5.70) Hemoglobin 9.3g/dL (13.0-17.5) Hematocrit 29.0% (39.0-53.0) Mean Corpuscular Volume 101fL (79-100) Mean Corpuscular Hemoglobin 33pg (25-35) Mean Corpuscular Hemoglobin Concent 32g/dL (31-37) Red Cell Distribution Width 14.8% (11.5-14.5) Platelet Count 88x10^3/uL (140-400) Neutrophils (%) (Auto) 81% (31-73) Lymphocytes (%) (Auto) 8% (24-48) Monocytes (%) (Auto) 9% (0-9) Eosinophils (%) (Auto) 1% (0-3) Basophils (%) (Auto) 1% (0-3) Neutrophils # (Auto) 7.1x10^3uL (1.8-7.7) Lymphocytes # (Auto) 0.7x10^3/uL (1.0-4.8) Monocytes # (Auto) 0.8x10^3/uL (0.0-1.1) Eosinophils # (Auto) 0.1x10^3/uL (0.0-0.7) Basophils # (Auto) 0.0x10^3/uL (0.0-0.2) Sodium Level 135mmol/L (136-145) Potassium Level 4.2mmol/L (3.5-5.1) Chloride Level 97mmol/L (98-107) Carbon Dioxide Level 29mmol/L (21-32) Anion Gap 9 (6-14) Blood Urea Nitrogen 29mg/dL (8-26) Creatinine 4.4mg/dL (0.7-1.3) Estimated GFR (Cockcroft-Gault) 13.5 BUN/Creatinine Ratio 7 (6-20) Glucose Level 174mg/dL (70-99) Calcium Level 8.4mg/dL (8.5-10.1) Magnesium Level 2.5mg/dL (1.8-2.4) Total Bilirubin 0.6mg/dL (0.2-1.0) Aspartate Amino Transf (AST/SGOT) 39U/L (15-37) Alanine Aminotransferase (ALT/SGPT) 22U/L (16-63) Alkaline Phosphatase 151U/L (46-116) Total Protein 6.6g/dL (6.4-8.2) Albumin 2.2g/dL (3.4-5.0) Albumin/Globulin Ratio 0.5 (1.0-1.7) Test 09/03/16 07:02 09/03/16 11:10 Glucose (Fingerstick) 152mg/dL (70-99) 225mg/dL (70-99) Microbiology 08/31/16 Blood Culture - Preliminary, Resulted NO GROWTH AFTER 2 DAYS Medications Current Medications Ondansetron HCl (Zofran) 4 mg PRN Q6HRS PRN IV Nausea; Start 08/25/16 at 07:00 ; Stop 08/26/16 at 06:59; Status DC Fentanyl Citrate (Fentanyl 2ml Vial) 25 mcg PRN Q5MIN PRN IV MILD PAIN Last administered on 08/25/16t 17:41; Start 08/25/16 at 07:00; Stop 08/25/16 at 23:18 ; Status DC Fentanyl Citrate (Fentanyl 2ml Vial) 50 mcg PRN Q5MIN PRN IV MODERATE PAIN; Start 08/25/16 at 07:00; Stop 08/25/16 at 23:18; Status DC Morphine Sulfate 1 mg 1 mg PRN Q10MIN PRN IV SEVERE PAIN; Start 08/25/16 at 07: 00; Stop 08/25/16 at 23:18; Status DC Lactated Ringer's (Iv Lactated Ringers) 1,000 ml @ 0 mls/hr Q0M IV ; Start at 07:00; Stop 08/25/16 at 18:59; Status DC Lidocaine HCl 2 ml 1X PRN PRN ID IV START; Start 08/25/16 at 07:00; Stop at 06:59; Status DC Hydromorphone HCl (Dilaudid) 0.5 mg PRN Q10MIN PRN IV SEVERE PAIN, Second choice; Start 08/25/16 at 07:00; Stop 08/25/16 at 23:18; Status DC Prochlorperazine Edisylate 5 mg 5 mg PACU PRN PRN IV NAUSEA; Start 08/25/16 at 07:00; Stop 08/25/16 at 23:18; Status DC Cefazolin Sodium/ Dextrose 50 ml @ 100 mls/hr 1X PREOP PRN IV PRIOR TO PROCEDURE Last administered on 08/25/16 08:30; Start 08/25/16 at 06:00; Stop at 18:00; Status DC Sodium Chloride (Iv Sodium Chloride 0.9% 1000ml Bag) 1,000 ml @ 0 mls/hr 1X ONCE IV Last administered on 08/25/16 06:48; Start 08/25/16 at 06:45; Stop at 06:51; Status DC Scopolamine (Transderm-Scop) 1 patch 1X ONCE TD Last administered on 07:03; Start 08/25/16 at 07:00; Stop 08/25/16 at 07:01; Status DC Dexamethasone Sodium Phosphate (Decadron) 4 mg ONCE ONCE IV Last administered on 08/25/16 07:05; Start 08/25/16 at 07:00; Stop 08/25/16 at 07:01; Status DC Ondansetron HCl (Zofran) 4 mg 1X ONCE IV Last administered on 08/25/16 07:03 ; Start 08/25/16 at 07:00; Stop 08/25/16 at 07:01; Status DC Sevoflurane (Ultane) 60 ml STK-MED ONCE IH ; Start 08/25/16 at 07:10; Stop 08/25 at 07:11; Status DC Fentanyl Citrate 250 mcg 250 mcg STK-MED ONCE .ROUTE ; Start 08/25/16 at 07:11; Stop 08/25/16 at 07:12; Status DC Propofol (Diprivan) 20 ml @ As Directed STK-MED ONCE IV ; Start 08/25/16 at 07: 11; Stop 08/25/16 at 07:12; Status DC Lidocaine HCl 100 mg STK-MED ONCE .ROUTE ; Start 08/25/16 at 07:11; Stop at 07:12; Status DC Ondansetron HCl (Zofran) 4 mg STK-MED ONCE .ROUTE ; Start 08/25/16 at 07:11; Stop 08/25/16 at 07:12; Status DC Dexamethasone Sodium Phosphate (Decadron) 20 mg STK-MED ONCE .ROUTE ; Start at 07:11; Stop 08/25/16 at 07:12; Status DC Etomidate (Amidate) 20 mg STK-MED ONCE IV ; Start 08/25/16 at 07:11; Stop at 07:12; Status DC Rocuronium [place] (Zemuron) 50 mg STK-MED ONCE .ROUTE ; Start 08/25/16 at 07:30 ; Stop 08/25/16 at 07:31; Status DC Ketamine HCl 500 mg STK-MED ONCE .ROUTE ; Start 08/25/16 at 09:54; Stop at 09:55; Status DC Rocuronium [place] (Zemuron) 50 mg STK-MED ONCE .ROUTE ; Start 08/25/16 at 11:00 ; Stop 08/25/16 at 11:01; Status DC Cellulose 1 each STK-MED ONCE .ROUTE Last administered on 08/25/16t 11:15; Start 08/25/16 at 11:14; Stop 08/25/16 at 11:15; Status DC Glycopyrrolate (Robinul) 1 mg STK-MED ONCE .ROUTE ; Start 08/25/16 at 11:25; Stop 08/25/16 at 11:26; Status DC Neostigmine Methylsulfate 5 mg STK-MED ONCE .ROUTE ; Start 08/25/16 at 11:25; Stop 08/25/16 at 11:26; Status DC Enoxaparin Sodium (Lovenox 30mg Syringe) 30 mg QHS SQ Last administered on 08/25t 21:24; Start 08/25/16 at 21:00; Stop 08/26/16 at 14:21; Status DC Sodium Chloride 3 ml 3 ml QSHIFT PRN IV AFTER MEDS AND BLOOD DRAWS; Start 08/25 at 11:30 Lactated Ringer's (Iv Lactated Ringers) 1,000 ml @ 100 mls/hr Q10H IV ; Start 08/25/16 at 11:30; Stop 08/26/16 at 09:11; Status DC Acetaminophen/ Hydrocodone Bitart (Lortab 5/325) 1 tab PRN Q4HRS PRN PO MILD PAIN Last administered on 09/02/16 14:35; Start 08/25/16 at 11:30 Hydromorphone HCl (Dilaudid) 0.2 mg PRN Q1HR PRN IV PAIN Last administered on 17:20; Start 08/25/16 at 11:30 Docusate Sodium (Colace) 100 mg BID PO Last administered on 09/02/16 14:35; Start 08/25/16 at 21:00 Ondansetron HCl (Zofran) 4 mg PRN Q6HRS PRN IV NAUESA, 1ST CHOICE Last administered on 09/02/16 16:22; Start 08/25/16 at 11:30 Insulin Human Regular 3 unit 3 unit 1X ONCE IV Last administered on 08/25/16 12:49; Start 08/25/16 at 12:45; Stop 08/25/16 at 12:46; Status DC Magnesium Sulfate/ Dextrose (Magnesium Sulfate PREMIX 2GM) 50 ml @ 25 mls/hr PRN DAILY PRN IV for Mag < 1.7 on am labs; Start 08/25/16 at 17:45 Hydralazine HCl 20 mg 20 mg PRN Q4HRS PRN IVP ELEVATED BP, SEE COMMENTS; Start 08/25/16 at 17:45 Sodium Chloride 1,000 ml @ 1,000 mls/hr Q1H PRN IV hypotension; Start 08/26/16 at 09:00; Stop 08/26/16 at 14:59; Status DC Sodium Chloride (Iv Sodium Chloride 0.9% 1000ml Bag) 1,000 ml @ 400 mls/hr Q2H30M PRN IV PATENCY; Start 08/26/16 at 09:00; Stop 08/26/16 at 20:59; Status DC Info (PHARMACY MONITORING -- do not chart) 1 each PRN DAILY PRN MC SEE COMMENTS ; Start 08/26/16 at 10:00 Heparin Sodium (Porcine) 5000 unit 5,000 unit Q8HRS SQ Last administered on 09:18; Start 08/26/16 at 22:00 Magnesium Sulfate/ Dextrose (Magnesium Sulfate PREMIX 2GM) 50 ml @ 25 mls/hr 1X ONCE IV Last administered on 08/26/16 21:34; Start 08/26/16 at 21:30; Stop 08/26/16 at 23:29; Status DC Allopurinol (Zyloprim) 300 mg DAILY PO Last administered on 08/27/16 16:06; Start 08/27/16 at 16:00; Stop 08/28/16 at 11:11; Status DC Aspirin (Children'S Aspirin) 81 mg DAILY PO Last administered on 09/03/16 09: 13; Start 08/27/16 at 16:00 Calcium Acetate (Phoslo) 667 mg TIDWMEALS PO Last administered on 09/03/16 11: 49; Start 08/27/16 at 17:00 Digoxin (Lanoxin) 125 mcg DAILY PO Last administered on 09/03/16 09:00; Start 08/27/16 at 16:00 Folic Acid/ Multivitamins/Vit B12 (Nephro-Mouna) 1 tab DAILY PO Last administered on 09/03/16 10:23; Start 08/27/16 at 16:00 Gabapentin (Neurontin) 100 mg BID PO Last administered on 09/03/16 09:13; Start 08/27/16 at 21:00 Nitroglycerin (Nitrostat) 0.4 mg PRN Q5MIN PRN SL CHEST PAIN; Start 08/27/16 at 15:30 Oxycodone/ Acetaminophen (Percocet 7.5/ 325) 1 tab PRN TID PRN PO MODERATE PAIN ; Start 08/27/16 at 15:30 Polyethylene Glycol (miraLAX PACKET) 17 gm PRN BID PRN PO CONSTIPATION Last administered on 08/29/16 08:58; Start 08/28/16 at 09:00 Ranolazine (Ranexa) 500 mg DAILY PO Last administered on 09/03/16 09:13; Start 08/27/16 at 16:00 Tamsulosin HCl (Flomax) 0.4 mg QHS PO Last administered on 09/02/16 21:27; Start 08/27/16 at 21:00 Insulin Detemir (Levemir) 30 units BIDWMEALS SQ Last administered on 08/27/16 17:34; Start 08/27/16 at 17:00; Stop 08/28/16 at 09:01; Status DC Albuterol Sulfate (Ventolin Neb Soln) 2.5 mg RTQID NEB Last administered on 11:31; Start 08/27/16 at 16:00 Budesonide 0.5 mg 0.5 mg RTBID NEB Last administered on 09/03/16 07:25; Start 08/27/16 at 20:00 Sodium Chloride 1,000 ml @ 1,000 mls/hr Q1H PRN IV hypotension; Start 08/28/16 at 07:46; Stop 08/28/16 at 13:45; Status DC Albumin Human (Albuminar) 200 ml @ 200 mls/hr 1X PRN PRN IV Hypotension; Start 08/28/16 at 08:00; Stop 08/28/16 at 13:59; Status DC Diphenhydramine HCl 25 mg 25 mg 1X PRN PRN IV ITCHING; Start 08/28/16 at 08:00 ; Stop 08/29/16 at 07:59; Status DC Sodium Chloride (Iv Sodium Chloride 0.9% 1000ml Bag) 1,000 ml @ 400 mls/hr Q2H30M PRN IV PATENCY; Start 08/28/16 at 07:46; Stop 08/28/16 at 19:45; Status DC Info (PHARMACY MONITORING -- do not chart) 1 each PRN DAILY PRN MC SEE COMMENTS ; Start 08/28/16 at 08:00; Stop 08/28/16 at 08:00; Status DC Info (PHARMACY MONITORING -- do not chart) 1 each PRN DAILY PRN MC SEE COMMENTS ; Start 08/28/16 at 08:00; Stop 08/28/16 at 08:00; Status DC Lidocaine HCl (Xylocaine-Mpf 1% Vial) 2 ml 1X ONCE INJ Last administered on 08:51; Start 08/28/16 at 08:00; Stop 08/28/16 at 08:01; Status DC Insulin Detemir (Levemir) 20 units BIDWMEALS SQ Last administered on 08/28/16 16:33; Start 08/28/16 at 17:00; Stop 08/29/16 at 12:14; Status DC Allopurinol (Zyloprim) 300 mg Q48H PO Last administered on 09/02/16 14:35; Start 08/29/16 at 09:00 Dextrose 12.5 gm PRN Q15MIN PRN IV SEE COMMENTS; Start 08/28/16 at 11:30 Insulin Detemir (Levemir) 16 units BIDWMEALS SQ ; Start 08/29/16 at 17:00; Status UNV Insulin Detemir (Levemir) 16 units 1X ONCE SQ Last administered on 08/29/16 12:17; Start 08/29/16 at 12:15; Stop 08/29/16 at 12:19; Status DC Insulin Detemir (Levemir) 16 units BIDWMEALS SQ Last administered on 08/30/16 17:03; Start 08/29/16 at 17:00; Stop 08/31/16 at 08:30; Status DC Budesonide (Pulmicort) 0.5 mg 1X ONCE NEB ; Start 08/31/16 at 00:15; Stop 08/31 at 00:16; Status DC Albuterol/ Ipratropium (Duoneb) 3 ml 1X ONCE NEB Last administered on 00:08; Start 08/31/16 at 00:15; Stop 08/31/16 at 00:16; Status DC Insulin Detemir 14 units 14 units BIDWMEALS SQ Last administered on 09/03/16 09:18; Start 08/31/16 at 09:00 Sodium Chloride (Iv Sodium Chloride 0.9% 1000ml Bag) 1,000 ml @ 1,000 mls/hr Q1H PRN IV hypotension; Start 08/31/16 at 08:41; Stop 08/31/16 at 14:40; Status DC Diphenhydramine HCl (Benadryl) 25 mg 1X PRN PRN IV ITCHING; Start 08/31/16 at 08:45; Stop 08/31/16 at 18:00; Status DC Diphenhydramine HCl (Benadryl) 25 mg 1X PRN PRN IV ITCHING; Start 08/31/16 at 08:45; Stop 08/31/16 at 18:00; Status DC Labetalol HCl 10 mg 10 mg PRN Q1HR PRN IVP SBP > 180; Start 08/31/16 at 08:45; Stop 08/31/16 at 18:00; Status DC Sodium Chloride (Iv Sodium Chloride 0.9% 1000ml Bag) 1,000 ml @ 400 mls/hr Q2H30M PRN IV PATENCY; Start 08/31/16 at 08:41; Stop 08/31/16 at 20:40; Status DC Info (PHARMACY MONITORING -- do not chart) 1 each PRN DAILY PRN MC SEE COMMENTS ; Start 08/31/16 at 08:45; Status Cancel Iohexol (Omnipaque 240 Mg/ml) 50 ml 1X ONCE PO Last administered on 08/31/16 16:16; Start 08/31/16 at 15:30; Stop 08/31/16 at 15:31; Status DC Acetaminophen 500 mg 500 mg PRN Q6HRS PRN PO MILD PAIN / TEMP Last administered on 08/31/16 23:43; Start 08/31/16 at 16:00 Piperacillin Sod/ Tazobactam Sod/ Sodium Chloride (Zosyn/Iv Sodium Chloride 0.9 % 50ml) 50 ml @ 100 mls/hr Q8HRS IV Last administered on 09/03/16 11:49; Start 08/31/16 at 22:00 Vancomycin HCl (Vanco Per Pharmacy) 1 each PRN DAILY PRN MC SEE COMMENTS Last administered on 09/02/16 13:05; Start 08/31/16 at 18:15 Tobramycin Sulfate 1 each 1 each PRN DAILY PRN MC SEE COMMENTS; Start 08/31/16 at 18:15; Stop 09/01/16 at 09:25; Status DC Vancomycin HCl/ Sodium Chloride (Iv Sodium Chloride 0.9% 500ml Bag) 500 ml @ 250 mls/hr 1X ONCE IV Last administered on 08/31/16 21:39; Start 08/31/16 at 18:30; Stop 08/31/16 at 20:29; Status DC Vancomycin HCl 1 each 1 each PRN DAILY PRN MC SEE COMMENTS; Start 08/31/16 at 18:15; Status UNV Piperacillin Sod/ Tazobactam Sod/ Sodium Chloride (Zosyn/Iv Sodium Chloride 0.9 % 50ml) 50 ml @ 100 mls/hr Q8HRS IV ; Start 08/31/16 at 22:00; Status UNV Tobramycin Sulfate (Nebcin Per Pharmacy) 1 each PRN DAILY PRN MC SEE COMMENTS; Start 08/31/16 at 18:15; Status UNV Vancomycin HCl 1 each 1 each 1X ONCE MC ; Start 09/02/16 at 05:00; Stop at 05:01; Status Cancel Tobramycin Sulfate/Sodium Chloride (Nebcin/Iv Sodium Chloride 0.9% 50ml) 53.75 ml @ 104 mls/hr 1X ONCE IV Last administered on 08/31/16t 18:55; Start at 18:30; Stop 08/31/16 at 19:01; Status DC Tobramycin Sulfate 1 each 1X ONCE MC ; Start 09/02/16 at 05:00; Stop 09/02/16 at 05:00; Status DC Darbepoetin Jackson (Aranesp) 60 mcg WEEKLYHS SQ Last administered on 09/01/16 22 :02; Start 09/01/16 at 21:00 Vancomycin HCl 1 each 1 each 1X ONCE MC Last administered on 09/02/16t 05:00; Start 09/02/16 at 05:00; Stop 09/02/16 at 05:01; Status DC Sodium Chloride (Iv Sodium Chloride 0.9% 1000ml Bag) 1,000 ml @ 1,000 mls/hr Q1H PRN IV hypotension; Start 09/02/16 at 09:10; Stop 09/02/16 at 15:09; Status DC Diphenhydramine HCl (Benadryl) 25 mg 1X PRN PRN IV ITCHING; Start 09/02/16 at 09:15; Stop 09/03/16 at 09:14; Status DC Diphenhydramine HCl 25 mg 25 mg 1X PRN PRN IV ITCHING; Start 09/02/16 at 09:15 ; Stop 09/03/16 at 09:14; Status UNV Sodium Chloride (Iv Sodium Chloride 0.9% 1000ml Bag) 1,000 ml @ 400 mls/hr Q2H30M PRN IV PATENCY; Start 09/02/16 at 09:10; Stop 09/02/16 at 21:09; Status UNV Info (PHARMACY MONITORING -- do not chart) 1 each PRN DAILY PRN MC SEE COMMENTS ; Start 09/02/16 at 09:15; Status UNV Info (PHARMACY MONITORING -- do not chart) 1 each PRN DAILY PRN MC SEE COMMENTS ; Start 09/02/16 at 09:15; Status UNV Info 1 each 1 each PRN DAILY PRN MC SEE COMMENTS; Start 09/02/16 at 09:15; Status UNV Vancomycin HCl 500 mg/Sodium Chloride 100 ml @ 100 mls/hr QMWF IV ; Start 09/04 at 16:00 Magnesium Sulfate/ Dextrose (Magnesium Sulfate PREMIX 2GM) 50 ml @ 25 mls/hr 1X ONCE IV Last administered on 09/02/16t 20:00; Start 09/02/16 at 19:45; Stop 09/02/16 at 21:44; Status DC Active Scripts Active Reported Gabapentin 100 Mg Capsule 100 Mg PO BID Ranexa (Ranolazine) 500 Mg Tab.er.12h 1 Tab PO DAILY Phoslo (Calcium Acetate) 667 Mg Capsule 667 Mg PO TIDWMEALS Polyethylene Glycol 3350 255 Gm Powder 17 Gm PO DAILY PRN Anoro Ellipta 62.5-25 Mcg Inh (Umeclidinium Brm/Vilanterol Tr) 1 Each Disk.w.dev 1 Each IH DAILY Clopidogrel (Clopidogrel Bisulfate) 75 Mg Tablet 1 Tab PO DAILY Percocet 7.5-325 Mg Tablet (Oxycodone/Acetaminophen) 1 Each Tablet 1 Tab PO TID PRN Dialyvite 800 Tablet (Folic Acid/Vitamin B Comp W-C) 0.8 Mg Tablet 0.8 Mg PO DAILY NITROGLYCERIN SubLingual (Nitroglycerin) 0.4 Mg Tab.subl 0.4 Mg SL PRN Humulin 70-30 Vial (Hum Insulin Nph/Reg Insulin Hm) 100 Unit/1 Ml Vial 30 Unit SQ BIDWMEALS Allopurinol 300 Mg Tablet 300 Mg PO DAILY Pepcid (Famotidine) 20 Mg Tablet 20 Mg PO QHS Lanoxin (Digoxin) 125 Mcg Tablet 125 Mcg PO DAILY Flomax (Tamsulosin Hcl) 0.4 Mg Cap.er.24h 0.4 Mg PO HS Aspirin 81 Mg Tab.chew 81 Mg PO DAILY Vitals/I & O Vital Sign - Last 24 Hours 09/02/16 09/02/16 09/02/16 09/02/16 12:28 14:35 15:15 15:46 Temp 99.3 99.3 Pulse 94 Resp 18 B/P 107/38 Pulse Ox 95 O2 Delivery Nasal Cannula Nasal Cannula Nasal Cannula Nasal Cannula O2 Flow Rate 1.0 1.0 1.0 1.0 09/02/16 09/02/16 09/02/16 09/02/16 15:48 19:10 19:13 19:15 Temp 99.1 99.1 Pulse 98 Resp 16 B/P 107/47 Pulse Ox 92 O2 Delivery Nasal Cannula Nasal Cannula Nasal Cannula Nasal Cannula O2 Flow Rate 1.0 1.0 1.0 1.0 09/02/16 09/02/16 09/03/16 09/03/16 19:40 23:10 03:10 07:15 Temp 98.1 99.4 98.2 98.1 99.4 98.2 Pulse 72 77 99 Resp 16 18 16 B/P 110/50 101/42 106/54 Pulse Ox 98 96 97 O2 Delivery Nasal Cannula Nasal Cannula Nasal Cannula Nasal Cannula O2 Flow Rate 1.0 1.0 1.0 1.0 09/03/16 09/03/16 09/03/16 09/03/16 07:27 07:37 08:00 09:00 Pulse 99 B/P 106/54 Pulse Ox 95 95 O2 Delivery Nasal Cannula Nasal Cannula Nasal Cannula O2 Flow Rate 1.0 1.0 1.0 09/03/16 09/03/16 09/03/16 09:13 11:06 11:32 Temp 98.2 98.2 Pulse 99 69 Resp 18 B/P 106/54 107/47 Pulse Ox 96 O2 Delivery Nasal Cannula Nasal Cannula O2 Flow Rate 1.0 1.0 Intake and Output 09/02/16 09/02/16 09/03/16 15:00 23:00 07:00 Intake Total 480 ml 180 ml 500 ml Balance 480 ml 180 ml 500 ml LEXI ALTAMIRANO MD Sep 03, 2016 11:57
[2016-09-03] MEDS: VANCOMYCIN PER PHARMACY MC PRN (12:43)
--- NOTE | 2016-09-03 13:10 | PDOC2 ---
CONSULT Date of Consult Date of Consult DATE: 09/03/16 TIME: 12:52 Referring Physician Referring Physician: Dr. 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 Because of increasing utilization of physical therapy and weight-bearing to the ulcer site, we have been asked to consult regarding worsening of the previous known ulcer. The patient himself is aware of local discomfort particularly with weightbearing. Some modest purulent drainage was noted yesterday by the wound care staff. No significant soft tissue cellulitis changes in the periwound have been identified. He is utilizing tennis shoes at this time for physical therapy activity. In general, the patient feels modestly fatigued. He is examined at the bedside after eating his noontime meal. The patient is aware of recent fever and chills and does report defervescence last night. He is currently receiving IV antibiotic therapy and cultures have not demonstrated growth at this time. Patient is currently receiving postoperative care after resection of a right retroperitoneal mass on 08/25/16. Past Medical History Cardiovascular: AFIB, CAD, CHF, HTN, Valve insufficiency, Pulmonary hypertension Heme/Onc: Cancer, Iron deficiency Anemia Musculoskeletal: Muscle atrophy, Weakness Renal/: Chronic renal failure Past Surgical History Past Surgical History: Cholecystectomy, Cataract Removal, Colon Resection, Other (he is also undergone the above mentioned abdominal mass resection with right nephrectomy and cardiac stent placement) Family History Family History: Cancer Social History Quit (remote history of tobacco use) Lives: with Family Current Problem List Problem List Problems Medical Problems: (1) Retroperitoneal mass Status: Acute Current Medications Current Medications Current Medications Ondansetron HCl (Zofran) 4 mg PRN Q6HRS PRN IV Nausea; Start 08/25/16 at 07:00 ; Stop 08/26/16 at 06:59; Status DC Fentanyl Citrate (Fentanyl 2ml Vial) 25 mcg PRN Q5MIN PRN IV MILD PAIN Last administered on 08/25/16t 17:41; Start 08/25/16 at 07:00; Stop 08/25/16 at 23:18 ; Status DC Fentanyl Citrate (Fentanyl 2ml Vial) 50 mcg PRN Q5MIN PRN IV MODERATE PAIN; Start 08/25/16 at 07:00; Stop 08/25/16 at 23:18; Status DC Morphine Sulfate 1 mg 1 mg PRN Q10MIN PRN IV SEVERE PAIN; Start 08/25/16 at 07: 00; Stop 08/25/16 at 23:18; Status DC Lactated Ringer's (Iv Lactated Ringers) 1,000 ml @ 0 mls/hr Q0M IV ; Start at 07:00; Stop 08/25/16 at 18:59; Status DC Lidocaine HCl 2 ml 1X PRN PRN ID IV START; Start 08/25/16 at 07:00; Stop at 06:59; Status DC Hydromorphone HCl (Dilaudid) 0.5 mg PRN Q10MIN PRN IV SEVERE PAIN, Second choice; Start 08/25/16 at 07:00; Stop 08/25/16 at 23:18; Status DC Prochlorperazine Edisylate 5 mg 5 mg PACU PRN PRN IV NAUSEA; Start 08/25/16 at 07:00; Stop 08/25/16 at 23:18; Status DC Cefazolin Sodium/ Dextrose 50 ml @ 100 mls/hr 1X PREOP PRN IV PRIOR TO PROCEDURE Last administered on 08/25/16 08:30; Start 08/25/16 at 06:00; Stop at 18:00; Status DC Sodium Chloride (Iv Sodium Chloride 0.9% 1000ml Bag) 1,000 ml @ 0 mls/hr 1X ONCE IV Last administered on 08/25/16 06:48; Start 08/25/16 at 06:45; Stop at 06:51; Status DC Scopolamine (Transderm-Scop) 1 patch 1X ONCE TD Last administered on 07:03; Start 08/25/16 at 07:00; Stop 08/25/16 at 07:01; Status DC Dexamethasone Sodium Phosphate (Decadron) 4 mg ONCE ONCE IV Last administered on 08/25/16 07:05; Start 08/25/16 at 07:00; Stop 08/25/16 at 07:01; Status DC Ondansetron HCl (Zofran) 4 mg 1X ONCE IV Last administered on 1/17/17at 07:03 ; Start 08/25/16 at 07:00; Stop 08/25/16 at 07:01; Status DC Sevoflurane (Ultane) 60 ml STK-MED ONCE IH ; Start 08/25/16 at 07:10; Stop 08/25 at 07:11; Status DC Fentanyl Citrate 250 mcg 250 mcg STK-MED ONCE .ROUTE ; Start 08/25/16 at 07:11; Stop 08/25/16 at 07:12; Status DC Propofol (Diprivan) 20 ml @ As Directed STK-MED ONCE IV ; Start 08/25/16 at 07: 11; Stop 08/25/16 at 07:12; Status DC Lidocaine HCl 100 mg STK-MED ONCE .ROUTE ; Start 08/25/16 at 07:11; Stop at 07:12; Status DC Ondansetron HCl (Zofran) 4 mg STK-MED ONCE .ROUTE ; Start 08/25/16 at 07:11; Stop 08/25/16 at 07:12; Status DC Dexamethasone Sodium Phosphate (Decadron) 20 mg STK-MED ONCE .ROUTE ; Start at 07:11; Stop 08/25/16 at 07:12; Status DC Etomidate (Amidate) 20 mg STK-MED ONCE IV ; Start 08/25/16 at 07:11; Stop at 07:12; Status DC Rocuronium Bypro (Zemuron) 50 mg STK-MED ONCE .ROUTE ; Start 08/25/16 at 07:30 ; Stop 08/25/16 at 07:31; Status DC Ketamine HCl 500 mg STK-MED ONCE .ROUTE ; Start 08/25/16 at 09:54; Stop at 09:55; Status DC Rocuronium Bypro (Zemuron) 50 mg STK-MED ONCE .ROUTE ; Start 08/25/16 at 11:00 ; Stop 08/25/16 at 11:01; Status DC Cellulose 1 each STK-MED ONCE .ROUTE Last administered on 08/25/16t 11:15; Start 08/25/16 at 11:14; Stop 08/25/16 at 11:15; Status DC Glycopyrrolate (Robinul) 1 mg STK-MED ONCE .ROUTE ; Start 08/25/16 at 11:25; Stop 08/25/16 at 11:26; Status DC Neostigmine Methylsulfate 5 mg STK-MED ONCE .ROUTE ; Start 08/25/16 at 11:25; Stop 08/25/16 at 11:26; Status DC Enoxaparin Sodium (Lovenox 30mg Syringe) 30 mg QHS SQ Last administered on 08/25 21:24; Start 08/25/16 at 21:00; Stop 08/26/16 at 14:21; Status DC Sodium Chloride 3 ml 3 ml QSHIFT PRN IV AFTER MEDS AND BLOOD DRAWS; Start 08/25 at 11:30 Lactated Ringer's (Iv Lactated Ringers) 1,000 ml @ 100 mls/hr Q10H IV ; Start 08/25/16 at 11:30; Stop 08/26/16 at 09:11; Status DC Acetaminophen/ Hydrocodone Bitart (Lortab 5/325) 1 tab PRN Q4HRS PRN PO MILD PAIN Last administered on 09/02/16 14:35; Start 08/25/16 at 11:30 Hydromorphone HCl (Dilaudid) 0.2 mg PRN Q1HR PRN IV PAIN Last administered on 17:20; Start 08/25/16 at 11:30 Docusate Sodium (Colace) 100 mg BID PO Last administered on 09/02/16 14:35; Start 08/25/16 at 21:00 Ondansetron HCl (Zofran) 4 mg PRN Q6HRS PRN IV NAUESA, 1ST CHOICE Last administered on 09/02/16 16:22; Start 08/25/16 at 11:30 Insulin Human Regular 3 unit 3 unit 1X ONCE IV Last administered on 08/25/16 12:49; Start 08/25/16 at 12:45; Stop 08/25/16 at 12:46; Status DC Magnesium Sulfate/ Dextrose (Magnesium Sulfate PREMIX 2GM) 50 ml @ 25 mls/hr PRN DAILY PRN IV for Mag < 1.7 on am labs; Start 08/25/16 at 17:45 Hydralazine HCl 20 mg 20 mg PRN Q4HRS PRN IVP ELEVATED BP, SEE COMMENTS; Start 08/25/16 at 17:45 Sodium Chloride 1,000 ml @ 1,000 mls/hr Q1H PRN IV hypotension; Start 08/26/16 at 09:00; Stop 08/26/16 at 14:59; Status DC Sodium Chloride (Iv Sodium Chloride 0.9% 1000ml Bag) 1,000 ml @ 400 mls/hr Q2H30M PRN IV PATENCY; Start 08/26/16 at 09:00; Stop 08/26/16 at 20:59; Status DC Info (PHARMACY MONITORING -- do not chart) 1 each PRN DAILY PRN MC SEE COMMENTS ; Start 08/26/16 at 10:00 Heparin Sodium (Porcine) 5000 unit 5,000 unit Q8HRS SQ Last administered on 09:18; Start 08/26/16 at 22:00 Magnesium Sulfate/ Dextrose (Magnesium Sulfate PREMIX 2GM) 50 ml @ 25 mls/hr 1X ONCE IV Last administered on 08/26/16 21:34; Start 08/26/16 at 21:30; Stop 08/26/16 at 23:29; Status DC Allopurinol (Zyloprim) 300 mg DAILY PO Last administered on 08/27/16 16:06; Start 08/27/16 at 16:00; Stop 08/28/16 at 11:11; Status DC Aspirin (Children'S Aspirin) 81 mg DAILY PO Last administered on 09/03/16 09: 13; Start 08/27/16 at 16:00 Calcium Acetate (Phoslo) 667 mg TIDWMEALS PO Last administered on 09/03/16 11: 49; Start 08/27/16 at 17:00 Digoxin (Lanoxin) 125 mcg DAILY PO Last administered on 09/03/16 09:00; Start 08/27/16 at 16:00 Folic Acid/ Multivitamins/Vit B12 (Nephro-Mouna) 1 tab DAILY PO Last administered on 09/03/16 10:23; Start 08/27/16 at 16:00 Gabapentin (Neurontin) 100 mg BID PO Last administered on 09/03/16 09:13; Start 08/27/16 at 21:00 Nitroglycerin (Nitrostat) 0.4 mg PRN Q5MIN PRN SL CHEST PAIN; Start 08/27/16 at 15:30 Oxycodone/ Acetaminophen (Percocet 7.5/ 325) 1 tab PRN TID PRN PO MODERATE PAIN ; Start 08/27/16 at 15:30 Polyethylene Glycol (miraLAX PACKET) 17 gm PRN BID PRN PO CONSTIPATION Last administered on 08/29/16 08:58; Start 08/28/16 at 09:00 Ranolazine (Ranexa) 500 mg DAILY PO Last administered on 09/03/16 09:13; Start 08/27/16 at 16:00 Tamsulosin HCl (Flomax) 0.4 mg QHS PO Last administered on 09/02/16 21:27; Start 08/27/16 at 21:00 Insulin Detemir (Levemir) 30 units BIDWMEALS SQ Last administered on 08/27/16 17:34; Start 08/27/16 at 17:00; Stop 08/28/16 at 09:01; Status DC Albuterol Sulfate (Ventolin Neb Soln) 2.5 mg RTQID NEB Last administered on 11:31; Start 08/27/16 at 16:00 Budesonide 0.5 mg 0.5 mg RTBID NEB Last administered on 09/03/16 07:25; Start 08/27/16 at 20:00 Sodium Chloride 1,000 ml @ 1,000 mls/hr Q1H PRN IV hypotension; Start 08/28/16 at 07:46; Stop 08/28/16 at 13:45; Status DC Albumin Human (Albuminar) 200 ml @ 200 mls/hr 1X PRN PRN IV Hypotension; Start 08/28/16 at 08:00; Stop 08/28/16 at 13:59; Status DC Diphenhydramine HCl 25 mg 25 mg 1X PRN PRN IV ITCHING; Start 08/28/16 at 08:00 ; Stop 08/29/16 at 07:59; Status DC Sodium Chloride (Iv Sodium Chloride 0.9% 1000ml Bag) 1,000 ml @ 400 mls/hr Q2H30M PRN IV PATENCY; Start 08/28/16 at 07:46; Stop 08/28/16 at 19:45; Status DC Info (PHARMACY MONITORING -- do not chart) 1 each PRN DAILY PRN MC SEE COMMENTS ; Start 08/28/16 at 08:00; Stop 08/28/16 at 08:00; Status DC Info (PHARMACY MONITORING -- do not chart) 1 each PRN DAILY PRN MC SEE COMMENTS ; Start 08/28/16 at 08:00; Stop 08/28/16 at 08:00; Status DC Lidocaine HCl (Xylocaine-Mpf 1% Vial) 2 ml 1X ONCE INJ Last administered on 08:51; Start 08/28/16 at 08:00; Stop 08/28/16 at 08:01; Status DC Insulin Detemir (Levemir) 20 units BIDWMEALS SQ Last administered on 08/28/16 16:33; Start 08/28/16 at 17:00; Stop 08/29/16 at 12:14; Status DC Allopurinol (Zyloprim) 300 mg Q48H PO Last administered on 09/02/16 14:35; Start 08/29/16 at 09:00 Dextrose 12.5 gm PRN Q15MIN PRN IV SEE COMMENTS; Start 08/28/16 at 11:30 Insulin Detemir (Levemir) 16 units BIDWMEALS SQ ; Start 08/29/16 at 17:00; Status UNV Insulin Detemir (Levemir) 16 units 1X ONCE SQ Last administered on 08/29/16 12:17; Start 08/29/16 at 12:15; Stop 08/29/16 at 12:19; Status DC Insulin Detemir (Levemir) 16 units BIDWMEALS SQ Last administered on 08/30/16 17:03; Start 08/29/16 at 17:00; Stop 08/31/16 at 08:30; Status DC Budesonide (Pulmicort) 0.5 mg 1X ONCE NEB ; Start 08/31/16 at 00:15; Stop 08/31 at 00:16; Status DC Albuterol/ Ipratropium (Duoneb) 3 ml 1X ONCE NEB Last administered on 00:08; Start 08/31/16 at 00:15; Stop 08/31/16 at 00:16; Status DC Insulin Detemir 14 units 14 units BIDWMEALS SQ Last administered on 09/03/16 09:18; Start 08/31/16 at 09:00 Sodium Chloride (Iv Sodium Chloride 0.9% 1000ml Bag) 1,000 ml @ 1,000 mls/hr Q1H PRN IV hypotension; Start 08/31/16 at 08:41; Stop 08/31/16 at 14:40; Status DC Diphenhydramine HCl (Benadryl) 25 mg 1X PRN PRN IV ITCHING; Start 08/31/16 at 08:45; Stop 08/31/16 at 18:00; Status DC Diphenhydramine HCl (Benadryl) 25 mg 1X PRN PRN IV ITCHING; Start 08/31/16 at 08:45; Stop 08/31/16 at 18:00; Status DC Labetalol HCl 10 mg 10 mg PRN Q1HR PRN IVP SBP > 180; Start 08/31/16 at 08:45; Stop 08/31/16 at 18:00; Status DC Sodium Chloride (Iv Sodium Chloride 0.9% 1000ml Bag) 1,000 ml @ 400 mls/hr Q2H30M PRN IV PATENCY; Start 08/31/16 at 08:41; Stop 08/31/16 at 20:40; Status DC Info (PHARMACY MONITORING -- do not chart) 1 each PRN DAILY PRN MC SEE COMMENTS ; Start 08/31/16 at 08:45; Status Cancel Iohexol (Omnipaque 240 Mg/ml) 50 ml 1X ONCE PO Last administered on 08/31/16 16:16; Start 08/31/16 at 15:30; Stop 08/31/16 at 15:31; Status DC Acetaminophen 500 mg 500 mg PRN Q6HRS PRN PO MILD PAIN / TEMP Last administered on 08/31/16 23:43; Start 08/31/16 at 16:00 Piperacillin Sod/ Tazobactam Sod/ Sodium Chloride (Zosyn/Iv Sodium Chloride 0.9 % 50ml) 50 ml @ 100 mls/hr Q8HRS IV Last administered on 09/03/16 11:49; Start 08/31/16 at 22:00 Vancomycin HCl (Vanco Per Pharmacy) 1 each PRN DAILY PRN MC SEE COMMENTS Last administered on 09/03/16 12:43; Start 08/31/16 at 18:15 Tobramycin Sulfate 1 each 1 each PRN DAILY PRN MC SEE COMMENTS; Start 08/31/16 at 18:15; Stop 09/01/16 at 09:25; Status DC Vancomycin HCl/ Sodium Chloride (Iv Sodium Chloride 0.9% 500ml Bag) 500 ml @ 250 mls/hr 1X ONCE IV Last administered on 08/31/16 21:39; Start 08/31/16 at 18:30; Stop 08/31/16 at 20:29; Status DC Vancomycin HCl 1 each 1 each PRN DAILY PRN MC SEE COMMENTS; Start 08/31/16 at 18:15; Status UNV Piperacillin Sod/ Tazobactam Sod/ Sodium Chloride (Zosyn/Iv Sodium Chloride 0.9 % 50ml) 50 ml @ 100 mls/hr Q8HRS IV ; Start 08/31/16 at 22:00; Status UNV Tobramycin Sulfate (Nebcin Per Pharmacy) 1 each PRN DAILY PRN MC SEE COMMENTS; Start 08/31/16 at 18:15; Status UNV Vancomycin HCl 1 each 1 each 1X ONCE MC ; Start 09/02/16 at 05:00; Stop at 05:01; Status Cancel Tobramycin Sulfate/Sodium Chloride (Nebcin/Iv Sodium Chloride 0.9% 50ml) 53.75 ml @ 104 mls/hr 1X ONCE IV Last administered on 08/31/16 18:55; Start at 18:30; Stop 08/31/16 at 19:01; Status DC Tobramycin Sulfate 1 each 1X ONCE MC ; Start 09/02/16 at 05:00; Stop 09/02/16 at 05:00; Status DC Darbepoetin Jacksno (Aranesp) 60 mcg WEEKLYHS SQ Last administered on 09/01/16 22 :02; Start 09/01/16 at 21:00 Vancomycin HCl 1 each 1 each 1X ONCE MC Last administered on 09/02/16 05:00; Start 09/02/16 at 05:00; Stop 09/02/16 at 05:01; Status DC Sodium Chloride (Iv Sodium Chloride 0.9% 1000ml Bag) 1,000 ml @ 1,000 mls/hr Q1H PRN IV hypotension; Start 09/02/16 at 09:10; Stop 09/02/16 at 15:09; Status DC Diphenhydramine HCl (Benadryl) 25 mg 1X PRN PRN IV ITCHING; Start 09/02/16 at 09:15; Stop 09/03/16 at 09:14; Status DC Diphenhydramine HCl 25 mg 25 mg 1X PRN PRN IV ITCHING; Start 09/02/16 at 09:15 ; Stop 09/03/16 at 09:14; Status UNV Sodium Chloride (Iv Sodium Chloride 0.9% 1000ml Bag) 1,000 ml @ 400 mls/hr Q2H30M PRN IV PATENCY; Start 09/02/16 at 09:10; Stop 09/02/16 at 21:09; Status UNV Info (PHARMACY MONITORING -- do not chart) 1 each PRN DAILY PRN MC SEE COMMENTS ; Start 09/02/16 at 09:15; Status UNV Info (PHARMACY MONITORING -- do not chart) 1 each PRN DAILY PRN MC SEE COMMENTS ; Start 09/02/16 at 09:15; Status UNV Info 1 each 1 each PRN DAILY PRN MC SEE COMMENTS; Start 09/02/16 at 09:15; Status UNV Vancomycin HCl 500 mg/Sodium Chloride 100 ml @ 100 mls/hr QMWF IV ; Start 09/04 at 16:00 Magnesium Sulfate/ Dextrose (Magnesium Sulfate PREMIX 2GM) 50 ml @ 25 mls/hr 1X ONCE IV Last administered on 09/02/16t 20:00; Start 09/02/16 at 19:45; Stop 09/02/16 at 21:44; Status DC Active Scripts Active Reported Gabapentin 100 Mg Capsule 100 Mg PO BID Ranexa (Ranolazine) 500 Mg Tab.er.12h 1 Tab PO DAILY Phoslo (Calcium Acetate) 667 Mg Capsule 667 Mg PO TIDWMEALS Polyethylene Glycol 3350 255 Gm Powder 17 Gm PO DAILY PRN Anoro Ellipta 62.5-25 Mcg Inh (Umeclidinium Brm/Vilanterol Tr) 1 Each Disk.w.dev 1 Each IH DAILY Clopidogrel (Clopidogrel Bisulfate) 75 Mg Tablet 1 Tab PO DAILY Percocet 7.5-325 Mg Tablet (Oxycodone/Acetaminophen) 1 Each Tablet 1 Tab PO TID PRN Dialyvite 800 Tablet (Folic Acid/Vitamin B Comp W-C) 0.8 Mg Tablet 0.8 Mg PO DAILY NITROGLYCERIN SubLingual (Nitroglycerin) 0.4 Mg Tab.subl 0.4 Mg SL PRN Humulin 70-30 Vial (Hum Insulin Nph/Reg Insulin Hm) 100 Unit/1 Ml Vial 30 Unit SQ BIDWMEALS Allopurinol 300 Mg Tablet 300 Mg PO DAILY Pepcid (Famotidine) 20 Mg Tablet 20 Mg PO QHS Lanoxin (Digoxin) 125 Mcg Tablet 125 Mcg PO DAILY Flomax (Tamsulosin Hcl) 0.4 Mg Cap.er.24h 0.4 Mg PO HS Aspirin 81 Mg Tab.chew 81 Mg PO DAILY Allergies Allergies: Coded Allergies: adhesive (Verified Allergy, Severe, STERI STRIPS- PEELING SKIN, 08/25/16) STERI STRIPS ROS General: YES: Fatigue, Malaise, Night Sweats Neurological: Yes Numbness/Tingling, Yes Other (diabetic neuropathy with significant loss of plantar sensation) Physical Exam General: Alert, Oriented X3, Cooperative, No acute distress HEENT: Atraumatic, PERRLA, EOMI, Mucous membr. moist/pink Lungs: Clear to auscultation Heart: Regular rate Abdomen: Soft Extremities: No clubbing, No cyanosis Skin: Other (left lower foot plantar surface ulcer initially measuring 0.8 x 0.8 cm with significant undermining was identified. The periwound appeared intact. Small amount of purulent drainage was released in the process of an open debridement. Open debridement was carried out with scalpel and forceps. This did not require anesthetic application. No viable tissue was removed. No bleeding occurred. Slough skin and callus were removed in the process. Post debridement measurements were 3.2 cm x 2.1 cm. Total area debrided was 6.72 cm . This constituted open debridement less than 20 cm.) Neuro: Normal speech, Cranial nerves 3-12 NL Psych/Mental Status: Mental status NL, Mood NL Vitals VITALS Vital Signs Date Time Temp Pulse Resp B/P Pulse Ox O2 Delivery O2 Flow Rate FiO2 09/03/16 11:32 Nasal Cannula 1.0 09/03/16 11:06 98.2 69 18 107/47 96 98.2 Labs Labs Laboratory Tests Test 09/01/16 16:02 09/01/16 20:50 09/02/16 04:20 09/02/16 07:42 Glucose (Fingerstick) 125mg/dL (70-99) 195mg/dL (70-99) 111mg/dL (70-99) White Blood Count 12.2x10^3/uL (4.0-11.0) Red Blood Count 2.97x10^6/uL (4.30-5.70) Hemoglobin 9.6g/dL (13.0-17.5) Hematocrit 29.0% (39.0-53.0) Mean Corpuscular Volume 98fL (79-100) Mean Corpuscular Hemoglobin 33pg (25-35) Mean Corpuscular Hemoglobin Concent 33g/dL (31-37) Red Cell Distribution Width 14.7% (11.5-14.5) Platelet Count 86x10^3/uL (140-400) Neutrophils (%) (Auto) 84% (31-73) Lymphocytes (%) (Auto) 6% (24-48) Monocytes (%) (Auto) 9% (0-9) Eosinophils (%) (Auto) 1% (0-3) Basophils (%) (Auto) 1% (0-3) Neutrophils # (Auto) 10.2x10^3uL (1.8-7.7) Lymphocytes # (Auto) 0.7x10^3/uL (1.0-4.8) Monocytes # (Auto) 1.0x10^3/uL (0.0-1.1) Eosinophils # (Auto) 0.1x10^3/uL (0.0-0.7) Basophils # (Auto) 0.1x10^3/uL (0.0-0.2) Sodium Level 136mmol/L (136-145) Potassium Level 4.6mmol/L (3.5-5.1) Chloride Level 97mmol/L (98-107) Carbon Dioxide Level 26mmol/L (21-32) Anion Gap 13 (6-14) Blood Urea Nitrogen 52mg/dL (8-26) Creatinine 6.9mg/dL (0.7-1.3) Estimated GFR (Cockcroft-Gault) 8.0 Glucose Level 103mg/dL (70-99) Calcium Level 7.8mg/dL (8.5-10.1) Random Vancomycin Level 24.2mcg/mL Test 09/02/16 14:13 09/02/16 16:44 09/02/16 21:36 09/03/16 04:50 Glucose (Fingerstick) 85mg/dL (70-99) 149mg/dL (70-99) 217mg/dL (70-99) White Blood Count 8.8x10^3/uL (4.0-11.0) Red Blood Count 2.87x10^6/uL (4.30-5.70) Hemoglobin 9.3g/dL (13.0-17.5) Hematocrit 29.0% (39.0-53.0) Mean Corpuscular Volume 101fL (79-100) Mean Corpuscular Hemoglobin 33pg (25-35) Mean Corpuscular Hemoglobin Concent 32g/dL (31-37) Red Cell Distribution Width 14.8% (11.5-14.5) Platelet Count 88x10^3/uL (140-400) Neutrophils (%) (Auto) 81% (31-73) Lymphocytes (%) (Auto) 8% (24-48) Monocytes (%) (Auto) 9% (0-9) Eosinophils (%) (Auto) 1% (0-3) Basophils (%) (Auto) 1% (0-3) Neutrophils # (Auto) 7.1x10^3uL (1.8-7.7) Lymphocytes # (Auto) 0.7x10^3/uL (1.0-4.8) Monocytes # (Auto) 0.8x10^3/uL (0.0-1.1) Eosinophils # (Auto) 0.1x10^3/uL (0.0-0.7) Basophils # (Auto) 0.0x10^3/uL (0.0-0.2) Sodium Level 135mmol/L (136-145) Potassium Level 4.2mmol/L (3.5-5.1) Chloride Level 97mmol/L (98-107) Carbon Dioxide Level 29mmol/L (21-32) Anion Gap 9 (6-14) Blood Urea Nitrogen 29mg/dL (8-26) Creatinine 4.4mg/dL (0.7-1.3) Estimated GFR (Cockcroft-Gault) 13.5 BUN/Creatinine Ratio 7 (6-20) Glucose Level 174mg/dL (70-99) Calcium Level 8.4mg/dL (8.5-10.1) Magnesium Level 2.5mg/dL (1.8-2.4) Total Bilirubin 0.6mg/dL (0.2-1.0) Aspartate Amino Transf (AST/SGOT) 39U/L (15-37) Alanine Aminotransferase (ALT/SGPT) 22U/L (16-63) Alkaline Phosphatase 151U/L (46-116) Total Protein 6.6g/dL (6.4-8.2) Albumin 2.2g/dL (3.4-5.0) Albumin/Globulin Ratio 0.5 (1.0-1.7) Test 09/03/16 07:02 09/03/16 11:10 Glucose (Fingerstick) 152mg/dL (70-99) 225mg/dL (70-99) Laboratory Tests Test 09/02/16 14:13 09/02/16 16:44 09/02/16 21:36 09/03/16 04:50 Glucose (Fingerstick) 85mg/dL (70-99) 149mg/dL (70-99) 217mg/dL (70-99) White Blood Count 8.8x10^3/uL (4.0-11.0) Red Blood Count 2.87x10^6/uL (4.30-5.70) Hemoglobin 9.3g/dL (13.0-17.5) Hematocrit 29.0% (39.0-53.0) Mean Corpuscular Volume 101fL (79-100) Mean Corpuscular Hemoglobin 33pg (25-35) Mean Corpuscular Hemoglobin Concent 32g/dL (31-37) Red Cell Distribution Width 14.8% (11.5-14.5) Platelet Count 88x10^3/uL (140-400) Neutrophils (%) (Auto) 81% (31-73) Lymphocytes (%) (Auto) 8% (24-48) Monocytes (%) (Auto) 9% (0-9) Eosinophils (%) (Auto) 1% (0-3) Basophils (%) (Auto) 1% (0-3) Neutrophils # (Auto) 7.1x10^3uL (1.8-7.7) Lymphocytes # (Auto) 0.7x10^3/uL (1.0-4.8) Monocytes # (Auto) 0.8x10^3/uL (0.0-1.1) Eosinophils # (Auto) 0.1x10^3/uL (0.0-0.7) Basophils # (Auto) 0.0x10^3/uL (0.0-0.2) Sodium Level 135mmol/L (136-145) Potassium Level 4.2mmol/L (3.5-5.1) Chloride Level 97mmol/L (98-107) Carbon Dioxide Level 29mmol/L (21-32) Anion Gap 9 (6-14) Blood Urea Nitrogen 29mg/dL (8-26) Creatinine 4.4mg/dL (0.7-1.3) Estimated GFR (Cockcroft-Gault) 13.5 BUN/Creatinine Ratio 7 (6-20) Glucose Level 174mg/dL (70-99) Calcium Level 8.4mg/dL (8.5-10.1) Magnesium Level 2.5mg/dL (1.8-2.4) Total Bilirubin 0.6mg/dL (0.2-1.0) Aspartate Amino Transf (AST/SGOT) 39U/L (15-37) Alanine Aminotransferase (ALT/SGPT) 22U/L (16-63) Alkaline Phosphatase 151U/L (46-116) Total Protein 6.6g/dL (6.4-8.2) Albumin 2.2g/dL (3.4-5.0) Albumin/Globulin Ratio 0.5 (1.0-1.7) Test 09/03/16 07:02 09/03/16 11:10 Glucose (Fingerstick) 152mg/dL (70-99) 225mg/dL (70-99) Assessment/Plan Assessment/Plan Diabetic Torres 1 ulceration to the left forefoot with evidence of fat exposure. Following debridement the site was irrigated with saline and culture was obtained from the ulcer base. I do note that there is no significant periwound erythema or evidence of cellulitis. Following debridement cadexomer iodine was placed into the ulcer bed. Wound care nursing staff will reevaluate the site tomorrow. Or he was also placed for childcare provider consultation so that the patient can effectively offload and continue physical therapy without progression of the ulcer. We would anticipate continued follow-up with the patient and the wound care clinic as before. YUNIER BRAUN DO Sep 03, 2016 13:10
[2016-09-03 15:08] VITALS: BP 106/51
[2016-09-03 19:00] VITALS: BP 101/47
[2016-09-03] MEDS: TAMSULOSIN 0.4 MG CAP.ER.24H. PO SCH (21:24)
[2016-09-03 23:24] VITALS: BP 108/53
[2016-09-04] MEDS: HYDROCODONE/APAP 5/325MG TABLET. PO PRN ×3 (02:01→16:51)
[2016-09-04] MEDS: OXYCODONE/APAP 7.5/325 TABLET. PO PRN ×2 (02:58→20:53)
[2016-09-04 03:25] VITALS: BP 112/48
[2016-09-04 05:51] LABS: CALCIUM 8.3 mg/dL (8.5-10.1); CREATININE 6.2 mg/dL (0.7-1.3); GFR 9.1; POTASSIUM 3.9 mmol/L (3.5-5.1)
[2016-09-04] MEDS: HEPARIN PF for SUB-Q USE 5,000 UNIT/0.5 ML VIAL. SQ SCH ×3 (05:58→20:29)
[2016-09-04] MEDS: PIPERACILLIN/TAZOBACTAM 2.25 GM in IV NORMAL SALINE 50ML 50 ML IV SCH ×3 (05:59→21:50)
[2016-09-04 07:00] VITALS: BP 108/52
[2016-09-04] MEDS: ALBUTEROL SULFATE 2.5 MG/3 ML NEBU. NEB SCH ×4 (07:17→19:34)
[2016-09-04] MEDS: BUDESONIDE 0.5 MG/2 ML NEBU NEB SCH ×2 (07:17→19:34)
--- NOTE | 2016-09-04 08:17 | PDOC ---
Infectious Disease Note Subjective Subjective Much better. Ambulated yesterday ROS ROS GEN: Denies fevers, chills, Still occ sweats HEENT: Denies blurred vision, sore throat CV: Denies chest pain RESP: Denies shortness of air, cough GI: Denies n/v. loose stool still NEURO: Denies confusion, dizziness MSK: Denies weakness, joint pain/swelling Vital Sign Vital Signs Vital Signs Date Time Temp Pulse Resp B/P Pulse Ox O2 Delivery O2 Flow Rate FiO2 09/04/16 07:19 97 Room Air 09/04/16 03:58 1.0 09/04/16 03:25 98.2 57 18 112/48 98.2 Physical Exam PHYSICAL EXAM GENERAL: NAD, Alert -looks better. Eating. 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, no focal neurologic deficit SKIN: No rash IV: HD fistula - ok Labs Lab Laboratory Tests Test 09/03/16 11:10 09/03/16 16:23 09/03/16 21:20 09/04/16 04:30 Glucose (Fingerstick) 225mg/dL (70-99) 148mg/dL (70-99) 168mg/dL (70-99) Sodium Level 135mmol/L (136-145) Potassium Level 3.9mmol/L (3.5-5.1) Chloride Level 96mmol/L (98-107) Carbon Dioxide Level 27mmol/L (21-32) Anion Gap 12 (6-14) Blood Urea Nitrogen 44mg/dL (8-26) Creatinine 6.2mg/dL (0.7-1.3) Estimated GFR (Cockcroft-Gault) 9.1 Glucose Level 122mg/dL (70-99) Calcium Level 8.3mg/dL (8.5-10.1) Test 09/04/16 07:27 Glucose (Fingerstick) 101mg/dL (70-99) Objective Assessment Fever - better - elevated Procalcitonin. Flu neg. CT 08/31 - neg. ? source. Clinically much better today Leukocytosis - better Abd pain - better CKD on HD Left foot ulcer - does not look infected. 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 Plan Plan of Care F/u blood cults Cont Vanc/Zosyn (Tobra times one 08/31) wean soon to po F/u labs/cults and response ZACHARY MOSQUERA MD Sep 04, 2016 08:17
--- NOTE | 2016-09-04 08:30 | PDOC ---
Provider Note Provider Note vss, no more temp, feels better- glucose control good on lower dose- cont same, likely home soon SANDEEP YANG MD Sep 04, 2016 08:30
[2016-09-04] MEDS: FOLIC/VIT B COMP W-C (RENAL) TABLET. PO SCH (08:51)
[2016-09-04] MEDS: RANOLAZINE 500 MG TAB.ER.12H PO SCH (08:51)
[2016-09-04] MEDS: CALCIUM ACETATE 667 MG CAPSULE PO SCH ×3 (08:51→16:56)
[2016-09-04] MEDS: ASPIRIN 81 MG TAB.CHEW PO SCH (08:52)
[2016-09-04] MEDS: ALLOPURINOL 300 MG TABLET. PO SCH (08:52)
[2016-09-04] MEDS: GABAPENTIN 100 MG CAPSULE. PO SCH ×2 (08:52→20:32)
[2016-09-04] MEDS: DIGOXIN 125 MCG TABLET PO SCH (08:53)
[2016-09-04] MEDS: DOCUSATE SODIUM 100 MG CAPSULE PO SCH ×2 (09:00→20:39)
[2016-09-04] MEDS: INSULIN DETEMIR 300 UNITS/3 ML INSULN.PEN. SQ SCH ×2 (09:06→17:00)
--- NOTE | 2016-09-04 10:30 | PDOC ---
Renal-Progress Notes Subjective Notes Notes STILL HAS DIARRHEA BUT STARTING TO FEEL MUCH BETTER History of Present Illness Hx of present illness IMPROVING Vitals Vitals Vital Signs Date Time Temp Pulse Resp B/P Pulse Ox O2 Delivery O2 Flow Rate FiO2 09/04/16 09:55 Nasal Cannula 1.0 09/04/16 08:53 66 108/52 09/04/16 07:19 97 09/04/16 07:00 96.6 18 96.6 Weight Weight [ ] I.O. Intake and Output Intake and Output 09/04/16 07:00 Intake Total 2070 ml Output Total 0 ml Balance 2070 ml Intake Oral 2070 ml Output Urine Total 0 ml # Bowel Movements 3 Labs Labs Laboratory Tests Test 09/03/16 11:10 09/03/16 16:23 09/03/16 21:20 09/04/16 04:30 Glucose (Fingerstick) 225mg/dL (70-99) 148mg/dL (70-99) 168mg/dL (70-99) Sodium Level 135mmol/L (136-145) Potassium Level 3.9mmol/L (3.5-5.1) Chloride Level 96mmol/L (98-107) Carbon Dioxide Level 27mmol/L (21-32) Anion Gap 12 (6-14) Blood Urea Nitrogen 44mg/dL (8-26) Creatinine 6.2mg/dL (0.7-1.3) Estimated GFR (Cockcroft-Gault) 9.1 Glucose Level 122mg/dL (70-99) Calcium Level 8.3mg/dL (8.5-10.1) Test 09/04/16 07:27 Glucose (Fingerstick) 101mg/dL (70-99) Micro Micro Microbiology 08/31/16 Blood Culture - Preliminary, Resulted NO GROWTH AFTER 3 DAYS 09/03/16 Gram Stain - Final, Complete Review of Systems Constitutional: yes: alert, oriented, weakness Ears/Nose/Throat: Yes: no symptom reported Eyes: Yes: no symptom reported Pulmonary: Yes no symptom reported Cardiovascular: Yes no symptom reported Gastrointestional: Yes: no symptom reported Genitourinary: Yes: no symptom reported Skin: Yes no symptom reported Physical Exam General Appearance: no apparent distress Skin: warm Respiratory: bilateral CTA Heart: S1S2, RRR Abdomen: soft, bowel sounds present Extremities: pulses present Neurology: alert Musculoskeletal: Muscle atrophy, Weakness Assessment Assessment IMP ESRD ANEMIA S/P RIGHT NEPHRECTOMY/REMOVAL OF RETROPERITONEAL MASS PLAN HD TODAY UF TO DW INCREASE ACTIVITY SURGERY FOLLOWING NAVIN ACEVEDO MD Sep 04, 2016 10:30
[2016-09-04 11:00] VITALS: BP 117/44
[2016-09-04] MEDS ORDERED: IV NORMAL SALINE 1000ML BAG 1,000 ML IV PRN (13:07)
[2016-09-04] MEDS ORDERED: ALBUMIN HUMAN 25% 200 ML IV PRN (13:15)
[2016-09-04] MEDS ORDERED: DIALYSIS PATIENT. MC PRN (13:15)
[2016-09-04] MEDS ORDERED: ACETAMINOPHEN 500 MG TABLET PO PRN (13:15)
[2016-09-04] MEDS ORDERED: LABETALOL 20 MG/4 ML DISP.SYRIN. IVP PRN (13:15)
[2016-09-04] MEDS ORDERED: DIPHENHYDRAMINE 50 MG/ML VIAL IV PRN ×2 (13:15)
[2016-09-04] MEDS: VANCOMYCIN PER PHARMACY MC PRN (14:57)
--- NOTE | 2016-09-04 16:02 | PDOC ---
SURGICAL PROGRESS NOTE Subjective Pt reports feeling better, nausea improved, mild abd pain, still with diarrhea Vital Signs Vital Signs Date Time Temp Pulse Resp B/P Pulse Ox O2 Delivery O2 Flow Rate FiO2 09/04/16 15:55 Nasal Cannula 1.0 09/04/16 11:00 96.1 63 16 117/44 100 96.1 I&O Intake and Output 09/04/16 07:00 Intake Total 2070 ml Output Total 0 ml Balance 2070 ml Intake Oral 2070 ml Output Urine Total 0 ml # Bowel Movements 3 General: Alert, Oriented X3, Cooperative, No acute distress Abdomen: Soft, No tenderness Labs Laboratory Tests Test 09/02/16 16:44 09/02/16 21:36 09/03/16 04:50 09/03/16 07:02 Glucose (Fingerstick) 149mg/dL (70-99) 217mg/dL (70-99) 152mg/dL (70-99) White Blood Count 8.8x10^3/uL (4.0-11.0) Red Blood Count 2.87x10^6/uL (4.30-5.70) Hemoglobin 9.3g/dL (13.0-17.5) Hematocrit 29.0% (39.0-53.0) Mean Corpuscular Volume 101fL (79-100) Mean Corpuscular Hemoglobin 33pg (25-35) Mean Corpuscular Hemoglobin Concent 32g/dL (31-37) Red Cell Distribution Width 14.8% (11.5-14.5) Platelet Count 88x10^3/uL (140-400) Neutrophils (%) (Auto) 81% (31-73) Lymphocytes (%) (Auto) 8% (24-48) Monocytes (%) (Auto) 9% (0-9) Eosinophils (%) (Auto) 1% (0-3) Basophils (%) (Auto) 1% (0-3) Neutrophils # (Auto) 7.1x10^3uL (1.8-7.7) Lymphocytes # (Auto) 0.7x10^3/uL (1.0-4.8) Monocytes # (Auto) 0.8x10^3/uL (0.0-1.1) Eosinophils # (Auto) 0.1x10^3/uL (0.0-0.7) Basophils # (Auto) 0.0x10^3/uL (0.0-0.2) Sodium Level 135mmol/L (136-145) Potassium Level 4.2mmol/L (3.5-5.1) Chloride Level 97mmol/L (98-107) Carbon Dioxide Level 29mmol/L (21-32) Anion Gap 9 (6-14) Blood Urea Nitrogen 29mg/dL (8-26) Creatinine 4.4mg/dL (0.7-1.3) Estimated GFR (Cockcroft-Gault) 13.5 BUN/Creatinine Ratio 7 (6-20) Glucose Level 174mg/dL (70-99) Calcium Level 8.4mg/dL (8.5-10.1) Magnesium Level 2.5mg/dL (1.8-2.4) Total Bilirubin 0.6mg/dL (0.2-1.0) Aspartate Amino Transf (AST/SGOT) 39U/L (15-37) Alanine Aminotransferase (ALT/SGPT) 22U/L (16-63) Alkaline Phosphatase 151U/L (46-116) Total Protein 6.6g/dL (6.4-8.2) Albumin 2.2g/dL (3.4-5.0) Albumin/Globulin Ratio 0.5 (1.0-1.7) Test 09/03/16 11:10 09/03/16 16:23 09/03/16 21:20 09/04/16 04:30 Glucose (Fingerstick) 225mg/dL (70-99) 148mg/dL (70-99) 168mg/dL (70-99) Sodium Level 135mmol/L (136-145) Potassium Level 3.9mmol/L (3.5-5.1) Chloride Level 96mmol/L (98-107) Carbon Dioxide Level 27mmol/L (21-32) Anion Gap 12 (6-14) Blood Urea Nitrogen 44mg/dL (8-26) Creatinine 6.2mg/dL (0.7-1.3) Estimated GFR (Cockcroft-Gault) 9.1 Glucose Level 122mg/dL (70-99) Calcium Level 8.3mg/dL (8.5-10.1) Test 09/04/16 07:27 09/04/16 12:01 Glucose (Fingerstick) 101mg/dL (70-99) 171mg/dL (70-99) Laboratory Tests Test 09/03/16 16:23 09/03/16 21:20 09/04/16 04:30 09/04/16 07:27 Glucose (Fingerstick) 148mg/dL (70-99) 168mg/dL (70-99) 101mg/dL (70-99) Sodium Level 135mmol/L (136-145) Potassium Level 3.9mmol/L (3.5-5.1) Chloride Level 96mmol/L (98-107) Carbon Dioxide Level 27mmol/L (21-32) Anion Gap 12 (6-14) Blood Urea Nitrogen 44mg/dL (8-26) Creatinine 6.2mg/dL (0.7-1.3) Estimated GFR (Cockcroft-Gault) 9.1 Glucose Level 122mg/dL (70-99) Calcium Level 8.3mg/dL (8.5-10.1) Test 09/04/16 12:01 Glucose (Fingerstick) 171mg/dL (70-99) Problem List Problems Medical Problems: (1) Retroperitoneal mass Status: Acute Assessment/Plan s/p resection cont supportive care and appropriate resuscitation given suspected viable gastroenteritis plan d/c 09/07, if OK with consultants d/c planning with social work Problems: BEATA HARDY MD Sep 04, 2016 16:02
[2016-09-04] MEDS: VANCOMYCIN 500 MG in IV NORMAL SALINE 100ML 100 ML IV SCH ×2 (16:52→20:26)
--- NOTE | 2016-09-04 18:08 | PDOC ---
PROGRESS NOTES Subjective Subjective Patient feels better today. Tolerating by mouth round better. No chest pains. No cardiac complaints. Objective Objective Vital Signs Date Time Temp Pulse Resp B/P Pulse Ox O2 Delivery O2 Flow Rate FiO2 09/04/16 16:51 17 95 09/04/16 15:55 Nasal Cannula 1.0 09/04/16 11:00 96.1 63 117/44 96.1 Intake and Output 09/04/16 07:00 Intake Total 2070 ml Output Total 0 ml Balance 2070 ml Intake Oral 2070 ml Output Urine Total 0 ml # Bowel Movements 3 Physical Exam Physical Exam No significant changes in cardiac exam Assessment Assessment Very slow progression after surgery. Patient compensated cardiac-pena at this time. I agree with present plan. Problems Medical Problems: (1) Retroperitoneal mass Status: Acute Comment Review of Relevant I have reviewed the following items nicole (where applicable) has been applied. Labs Laboratory Tests Test 09/02/16 21:36 09/03/16 04:50 09/03/16 07:02 09/03/16 11:10 Glucose (Fingerstick) 217mg/dL (70-99) 152mg/dL (70-99) 225mg/dL (70-99) White Blood Count 8.8x10^3/uL (4.0-11.0) Red Blood Count 2.87x10^6/uL (4.30-5.70) Hemoglobin 9.3g/dL (13.0-17.5) Hematocrit 29.0% (39.0-53.0) Mean Corpuscular Volume 101fL (79-100) Mean Corpuscular Hemoglobin 33pg (25-35) Mean Corpuscular Hemoglobin Concent 32g/dL (31-37) Red Cell Distribution Width 14.8% (11.5-14.5) Platelet Count 88x10^3/uL (140-400) Neutrophils (%) (Auto) 81% (31-73) Lymphocytes (%) (Auto) 8% (24-48) Monocytes (%) (Auto) 9% (0-9) Eosinophils (%) (Auto) 1% (0-3) Basophils (%) (Auto) 1% (0-3) Neutrophils # (Auto) 7.1x10^3uL (1.8-7.7) Lymphocytes # (Auto) 0.7x10^3/uL (1.0-4.8) Monocytes # (Auto) 0.8x10^3/uL (0.0-1.1) Eosinophils # (Auto) 0.1x10^3/uL (0.0-0.7) Basophils # (Auto) 0.0x10^3/uL (0.0-0.2) Sodium Level 135mmol/L (136-145) Potassium Level 4.2mmol/L (3.5-5.1) Chloride Level 97mmol/L (98-107) Carbon Dioxide Level 29mmol/L (21-32) Anion Gap 9 (6-14) Blood Urea Nitrogen 29mg/dL (8-26) Creatinine 4.4mg/dL (0.7-1.3) Estimated GFR (Cockcroft-Gault) 13.5 BUN/Creatinine Ratio 7 (6-20) Glucose Level 174mg/dL (70-99) Calcium Level 8.4mg/dL (8.5-10.1) Magnesium Level 2.5mg/dL (1.8-2.4) Total Bilirubin 0.6mg/dL (0.2-1.0) Aspartate Amino Transf (AST/SGOT) 39U/L (15-37) Alanine Aminotransferase (ALT/SGPT) 22U/L (16-63) Alkaline Phosphatase 151U/L (46-116) Total Protein 6.6g/dL (6.4-8.2) Albumin 2.2g/dL (3.4-5.0) Albumin/Globulin Ratio 0.5 (1.0-1.7) Test 09/03/16 16:23 09/03/16 21:20 09/04/16 04:30 09/04/16 07:27 Glucose (Fingerstick) 148mg/dL (70-99) 168mg/dL (70-99) 101mg/dL (70-99) Sodium Level 135mmol/L (136-145) Potassium Level 3.9mmol/L (3.5-5.1) Chloride Level 96mmol/L (98-107) Carbon Dioxide Level 27mmol/L (21-32) Anion Gap 12 (6-14) Blood Urea Nitrogen 44mg/dL (8-26) Creatinine 6.2mg/dL (0.7-1.3) Estimated GFR (Cockcroft-Gault) 9.1 Glucose Level 122mg/dL (70-99) Calcium Level 8.3mg/dL (8.5-10.1) Test 09/04/16 12:01 09/04/16 16:59 09/04/16 17:16 Glucose (Fingerstick) 171mg/dL (70-99) 66mg/dL (70-99) 71mg/dL (70-99) Laboratory Tests Test 09/03/16 21:20 09/04/16 04:30 09/04/16 07:27 09/04/16 12:01 Glucose (Fingerstick) 168mg/dL (70-99) 101mg/dL (70-99) 171mg/dL (70-99) Sodium Level 135mmol/L (136-145) Potassium Level 3.9mmol/L (3.5-5.1) Chloride Level 96mmol/L (98-107) Carbon Dioxide Level 27mmol/L (21-32) Anion Gap 12 (6-14) Blood Urea Nitrogen 44mg/dL (8-26) Creatinine 6.2mg/dL (0.7-1.3) Estimated GFR (Cockcroft-Gault) 9.1 Glucose Level 122mg/dL (70-99) Calcium Level 8.3mg/dL (8.5-10.1) Test 09/04/16 16:59 09/04/16 17:16 Glucose (Fingerstick) 66mg/dL (70-99) 71mg/dL (70-99) Microbiology 08/31/16 Blood Culture - Preliminary, Resulted NO GROWTH AFTER 3 DAYS 09/03/16 Gram Stain - Final, Complete Medications Current Medications Ondansetron HCl (Zofran) 4 mg PRN Q6HRS PRN IV Nausea; Start 08/25/16 at 07:00 ; Stop 08/26/16 at 06:59; Status DC Fentanyl Citrate (Fentanyl 2ml Vial) 25 mcg PRN Q5MIN PRN IV MILD PAIN Last administered on 08/25/16t 17:41; Start 08/25/16 at 07:00; Stop 08/25/16 at 23:18 ; Status DC Fentanyl Citrate (Fentanyl 2ml Vial) 50 mcg PRN Q5MIN PRN IV MODERATE PAIN; Start 08/25/16 at 07:00; Stop 08/25/16 at 23:18; Status DC Morphine Sulfate 1 mg 1 mg PRN Q10MIN PRN IV SEVERE PAIN; Start 08/25/16 at 07: 00; Stop 08/25/16 at 23:18; Status DC Lactated Ringer's (Iv Lactated Ringers) 1,000 ml @ 0 mls/hr Q0M IV ; Start at 07:00; Stop 08/25/16 at 18:59; Status DC Lidocaine HCl 2 ml 1X PRN PRN ID IV START; Start 08/25/16 at 07:00; Stop at 06:59; Status DC Hydromorphone HCl (Dilaudid) 0.5 mg PRN Q10MIN PRN IV SEVERE PAIN, Second choice; Start 08/25/16 at 07:00; Stop 08/25/16 at 23:18; Status DC Prochlorperazine Edisylate 5 mg 5 mg PACU PRN PRN IV NAUSEA; Start 08/25/16 at 07:00; Stop 08/25/16 at 23:18; Status DC Cefazolin Sodium/ Dextrose 50 ml @ 100 mls/hr 1X PREOP PRN IV PRIOR TO PROCEDURE Last administered on 08/25/16 08:30; Start 08/25/16 at 06:00; Stop at 18:00; Status DC Sodium Chloride (Iv Sodium Chloride 0.9% 1000ml Bag) 1,000 ml @ 0 mls/hr 1X ONCE IV Last administered on 08/25/16 06:48; Start 08/25/16 at 06:45; Stop at 06:51; Status DC Scopolamine (Transderm-Scop) 1 patch 1X ONCE TD Last administered on 07:03; Start 08/25/16 at 07:00; Stop 08/25/16 at 07:01; Status DC Dexamethasone Sodium Phosphate (Decadron) 4 mg ONCE ONCE IV Last administered on 08/25/16 07:05; Start 08/25/16 at 07:00; Stop 08/25/16 at 07:01; Status DC Ondansetron HCl (Zofran) 4 mg 1X ONCE IV Last administered on 08/25/16t 07:03 ; Start 08/25/16 at 07:00; Stop 08/25/16 at 07:01; Status DC Sevoflurane (Ultane) 60 ml STK-MED ONCE IH ; Start 08/25/16 at 07:10; Stop 08/25 at 07:11; Status DC Fentanyl Citrate 250 mcg 250 mcg STK-MED ONCE .ROUTE ; Start 08/25/16 at 07:11; Stop 08/25/16 at 07:12; Status DC Propofol (Diprivan) 20 ml @ As Directed STK-MED ONCE IV ; Start 08/25/16 at 07: 11; Stop 08/25/16 at 07:12; Status DC Lidocaine HCl 100 mg STK-MED ONCE .ROUTE ; Start 08/25/16 at 07:11; Stop at 07:12; Status DC Ondansetron HCl (Zofran) 4 mg STK-MED ONCE .ROUTE ; Start 08/25/16 at 07:11; Stop 08/25/16 at 07:12; Status DC Dexamethasone Sodium Phosphate (Decadron) 20 mg STK-MED ONCE .ROUTE ; Start at 07:11; Stop 08/25/16 at 07:12; Status DC Etomidate (Amidate) 20 mg STK-MED ONCE IV ; Start 08/25/16 at 07:11; Stop at 07:12; Status DC Rocuronium Friendship (Zemuron) 50 mg STK-MED ONCE .ROUTE ; Start 08/25/16 at 07:30 ; Stop 08/25/16 at 07:31; Status DC Ketamine HCl 500 mg STK-MED ONCE .ROUTE ; Start 08/25/16 at 09:54; Stop at 09:55; Status DC Rocuronium Friendship (Zemuron) 50 mg STK-MED ONCE .ROUTE ; Start 08/25/16 at 11:00 ; Stop 08/25/16 at 11:01; Status DC Cellulose 1 each STK-MED ONCE .ROUTE Last administered on 08/25/16t 11:15; Start 08/25/16 at 11:14; Stop 08/25/16 at 11:15; Status DC Glycopyrrolate (Robinul) 1 mg STK-MED ONCE .ROUTE ; Start 08/25/16 at 11:25; Stop 08/25/16 at 11:26; Status DC Neostigmine Methylsulfate 5 mg STK-MED ONCE .ROUTE ; Start 08/25/16 at 11:25; Stop 08/25/16 at 11:26; Status DC Enoxaparin Sodium (Lovenox 30mg Syringe) 30 mg QHS SQ Last administered on 08/25 21:24; Start 08/25/16 at 21:00; Stop 08/26/16 at 14:21; Status DC Sodium Chloride 3 ml 3 ml QSHIFT PRN IV AFTER MEDS AND BLOOD DRAWS; Start 08/25 at 11:30 Lactated Ringer's (Iv Lactated Ringers) 1,000 ml @ 100 mls/hr Q10H IV ; Start 08/25/16 at 11:30; Stop 08/26/16 at 09:11; Status DC Acetaminophen/ Hydrocodone Bitart (Lortab 5/325) 1 tab PRN Q4HRS PRN PO MILD PAIN Last administered on 09/04/16 16:51; Start 08/25/16 at 11:30 Hydromorphone HCl (Dilaudid) 0.2 mg PRN Q1HR PRN IV PAIN Last administered on 17:20; Start 08/25/16 at 11:30 Docusate Sodium (Colace) 100 mg BID PO Last administered on 09/02/16 14:35; Start 08/25/16 at 21:00 Ondansetron HCl (Zofran) 4 mg PRN Q6HRS PRN IV NAUESA, 1ST CHOICE Last administered on 09/02/16 16:22; Start 08/25/16 at 11:30 Insulin Human Regular 3 unit 3 unit 1X ONCE IV Last administered on 08/25/16 12:49; Start 08/25/16 at 12:45; Stop 08/25/16 at 12:46; Status DC Magnesium Sulfate/ Dextrose (Magnesium Sulfate PREMIX 2GM) 50 ml @ 25 mls/hr PRN DAILY PRN IV for Mag < 1.7 on am labs; Start 08/25/16 at 17:45 Hydralazine HCl 20 mg 20 mg PRN Q4HRS PRN IVP ELEVATED BP, SEE COMMENTS; Start 08/25/16 at 17:45 Sodium Chloride 1,000 ml @ 1,000 mls/hr Q1H PRN IV hypotension; Start 08/26/16 at 09:00; Stop 08/26/16 at 14:59; Status DC Sodium Chloride (Iv Sodium Chloride 0.9% 1000ml Bag) 1,000 ml @ 400 mls/hr Q2H30M PRN IV PATENCY; Start 08/26/16 at 09:00; Stop 08/26/16 at 20:59; Status DC Info (PHARMACY MONITORING -- do not chart) 1 each PRN DAILY PRN MC SEE COMMENTS ; Start 08/26/16 at 10:00 Heparin Sodium (Porcine) 5000 unit 5,000 unit Q8HRS SQ Last administered on 05:58; Start 08/26/16 at 22:00 Magnesium Sulfate/ Dextrose (Magnesium Sulfate PREMIX 2GM) 50 ml @ 25 mls/hr 1X ONCE IV Last administered on 08/26/16 21:34; Start 08/26/16 at 21:30; Stop 08/26/16 at 23:29; Status DC Allopurinol (Zyloprim) 300 mg DAILY PO Last administered on 08/27/16 16:06; Start 08/27/16 at 16:00; Stop 08/28/16 at 11:11; Status DC Aspirin (Children'S Aspirin) 81 mg DAILY PO Last administered on 09/04/16 08: 52; Start 08/27/16 at 16:00 Calcium Acetate (Phoslo) 667 mg TIDWMEALS PO Last administered on 09/04/16 16: 56; Start 08/27/16 at 17:00 Digoxin (Lanoxin) 125 mcg DAILY PO Last administered on 09/04/16 08:53; Start 08/27/16 at 16:00 Folic Acid/ Multivitamins/Vit B12 (Nephro-Mouna) 1 tab DAILY PO Last administered on 09/04/16 08:51; Start 08/27/16 at 16:00 Gabapentin (Neurontin) 100 mg BID PO Last administered on 09/04/16 08:52; Start 08/27/16 at 21:00 Nitroglycerin (Nitrostat) 0.4 mg PRN Q5MIN PRN SL CHEST PAIN; Start 08/27/16 at 15:30 Oxycodone/ Acetaminophen (Percocet 7.5/ 325) 1 tab PRN TID PRN PO MODERATE PAIN Last administered on 09/04/16 02:58; Start 08/27/16 at 15:30 Polyethylene Glycol (miraLAX PACKET) 17 gm PRN BID PRN PO CONSTIPATION Last administered on 08/29/16 08:58; Start 08/28/16 at 09:00 Ranolazine (Ranexa) 500 mg DAILY PO Last administered on 09/04/16 08:51; Start 08/27/16 at 16:00 Tamsulosin HCl (Flomax) 0.4 mg QHS PO Last administered on 09/03/16 21:24; Start 08/27/16 at 21:00 Insulin Detemir (Levemir) 30 units BIDWMEALS SQ Last administered on 08/27/16 17:34; Start 08/27/16 at 17:00; Stop 08/28/16 at 09:01; Status DC Albuterol Sulfate (Ventolin Neb Soln) 2.5 mg RTQID NEB Last administered on 15:54; Start 08/27/16 at 16:00 Budesonide 0.5 mg 0.5 mg RTBID NEB Last administered on 09/04/16 07:17; Start 08/27/16 at 20:00 Sodium Chloride 1,000 ml @ 1,000 mls/hr Q1H PRN IV hypotension; Start 08/28/16 at 07:46; Stop 08/28/16 at 13:45; Status DC Albumin Human (Albuminar) 200 ml @ 200 mls/hr 1X PRN PRN IV Hypotension; Start 08/28/16 at 08:00; Stop 08/28/16 at 13:59; Status DC Diphenhydramine HCl 25 mg 25 mg 1X PRN PRN IV ITCHING; Start 08/28/16 at 08:00 ; Stop 08/29/16 at 07:59; Status DC Sodium Chloride (Iv Sodium Chloride 0.9% 1000ml Bag) 1,000 ml @ 400 mls/hr Q2H30M PRN IV PATENCY; Start 08/28/16 at 07:46; Stop 08/28/16 at 19:45; Status DC Info (PHARMACY MONITORING -- do not chart) 1 each PRN DAILY PRN MC SEE COMMENTS ; Start 08/28/16 at 08:00; Stop 08/28/16 at 08:00; Status DC Info (PHARMACY MONITORING -- do not chart) 1 each PRN DAILY PRN MC SEE COMMENTS ; Start 08/28/16 at 08:00; Stop 08/28/16 at 08:00; Status DC Lidocaine HCl (Xylocaine-Mpf 1% Vial) 2 ml 1X ONCE INJ Last administered on 08:51; Start 08/28/16 at 08:00; Stop 08/28/16 at 08:01; Status DC Insulin Detemir (Levemir) 20 units BIDWMEALS SQ Last administered on 08/28/16 16:33; Start 08/28/16 at 17:00; Stop 08/29/16 at 12:14; Status DC Allopurinol (Zyloprim) 300 mg Q48H PO Last administered on 09/04/16 08:52; Start 08/29/16 at 09:00 Dextrose 12.5 gm PRN Q15MIN PRN IV SEE COMMENTS; Start 08/28/16 at 11:30 Insulin Detemir (Levemir) 16 units BIDWMEALS SQ ; Start 08/29/16 at 17:00; Status UNV Insulin Detemir (Levemir) 16 units 1X ONCE SQ Last administered on 08/29/16 12:17; Start 08/29/16 at 12:15; Stop 08/29/16 at 12:19; Status DC Insulin Detemir (Levemir) 16 units BIDWMEALS SQ Last administered on 08/30/16 17:03; Start 08/29/16 at 17:00; Stop 08/31/16 at 08:30; Status DC Budesonide (Pulmicort) 0.5 mg 1X ONCE NEB ; Start 08/31/16 at 00:15; Stop 08/31 at 00:16; Status DC Albuterol/ Ipratropium (Duoneb) 3 ml 1X ONCE NEB Last administered on 00:08; Start 08/31/16 at 00:15; Stop 08/31/16 at 00:16; Status DC Insulin Detemir 14 units 14 units BIDWMEALS SQ Last administered on 09/04/16 09:06; Start 08/31/16 at 09:00 Sodium Chloride (Iv Sodium Chloride 0.9% 1000ml Bag) 1,000 ml @ 1,000 mls/hr Q1H PRN IV hypotension; Start 08/31/16 at 08:41; Stop 08/31/16 at 14:40; Status DC Diphenhydramine HCl (Benadryl) 25 mg 1X PRN PRN IV ITCHING; Start 08/31/16 at 08:45; Stop 08/31/16 at 18:00; Status DC Diphenhydramine HCl (Benadryl) 25 mg 1X PRN PRN IV ITCHING; Start 08/31/16 at 08:45; Stop 08/31/16 at 18:00; Status DC Labetalol HCl 10 mg 10 mg PRN Q1HR PRN IVP SBP > 180; Start 08/31/16 at 08:45; Stop 08/31/16 at 18:00; Status DC Sodium Chloride (Iv Sodium Chloride 0.9% 1000ml Bag) 1,000 ml @ 400 mls/hr Q2H30M PRN IV PATENCY; Start 08/31/16 at 08:41; Stop 08/31/16 at 20:40; Status DC Info (PHARMACY MONITORING -- do not chart) 1 each PRN DAILY PRN MC SEE COMMENTS ; Start 08/31/16 at 08:45; Status Cancel Iohexol (Omnipaque 240 Mg/ml) 50 ml 1X ONCE PO Last administered on 08/31/16 16:16; Start 08/31/16 at 15:30; Stop 08/31/16 at 15:31; Status DC Acetaminophen 500 mg 500 mg PRN Q6HRS PRN PO MILD PAIN / TEMP Last administered on 08/31/16 23:43; Start 08/31/16 at 16:00 Piperacillin Sod/ Tazobactam Sod/ Sodium Chloride (Zosyn/Iv Sodium Chloride 0.9 % 50ml) 50 ml @ 100 mls/hr Q8HRS IV Last administered on 09/04/16 16:42; Start 08/31/16 at 22:00 Vancomycin HCl (Vanco Per Pharmacy) 1 each PRN DAILY PRN MC SEE COMMENTS Last administered on 09/04/16 14:57; Start 08/31/16 at 18:15 Tobramycin Sulfate 1 each 1 each PRN DAILY PRN MC SEE COMMENTS; Start 08/31/16 at 18:15; Stop 09/01/16 at 09:25; Status DC Vancomycin HCl/ Sodium Chloride (Iv Sodium Chloride 0.9% 500ml Bag) 500 ml @ 250 mls/hr 1X ONCE IV Last administered on 08/31/16 21:39; Start 08/31/16 at 18:30; Stop 08/31/16 at 20:29; Status DC Vancomycin HCl 1 each 1 each PRN DAILY PRN MC SEE COMMENTS; Start 08/31/16 at 18:15; Status UNV Piperacillin Sod/ Tazobactam Sod/ Sodium Chloride (Zosyn/Iv Sodium Chloride 0.9 % 50ml) 50 ml @ 100 mls/hr Q8HRS IV ; Start 08/31/16 at 22:00; Status UNV Tobramycin Sulfate (Nebcin Per Pharmacy) 1 each PRN DAILY PRN MC SEE COMMENTS; Start 08/31/16 at 18:15; Status UNV Vancomycin HCl 1 each 1 each 1X ONCE MC ; Start 09/02/16 at 05:00; Stop at 05:01; Status Cancel Tobramycin Sulfate/Sodium Chloride (Nebcin/Iv Sodium Chloride 0.9% 50ml) 53.75 ml @ 104 mls/hr 1X ONCE IV Last administered on 08/31/16 18:55; Start at 18:30; Stop 08/31/16 at 19:01; Status DC Tobramycin Sulfate 1 each 1X ONCE MC ; Start 09/02/16 at 05:00; Stop 09/02/16 at 05:00; Status DC Darbepoetin Jackson (Aranesp) 60 mcg WEEKLYHS SQ Last administered on 09/01/16 22 :02; Start 09/01/16 at 21:00 Vancomycin HCl 1 each 1 each 1X ONCE MC Last administered on 09/02/16 05:00; Start 09/02/16 at 05:00; Stop 09/02/16 at 05:01; Status DC Sodium Chloride (Iv Sodium Chloride 0.9% 1000ml Bag) 1,000 ml @ 1,000 mls/hr Q1H PRN IV hypotension; Start 09/02/16 at 09:10; Stop 09/02/16 at 15:09; Status DC Diphenhydramine HCl (Benadryl) 25 mg 1X PRN PRN IV ITCHING; Start 09/02/16 at 09:15; Stop 09/03/16 at 09:14; Status DC Diphenhydramine HCl 25 mg 25 mg 1X PRN PRN IV ITCHING; Start 09/02/16 at 09:15 ; Stop 09/03/16 at 09:14; Status UNV Sodium Chloride (Iv Sodium Chloride 0.9% 1000ml Bag) 1,000 ml @ 400 mls/hr Q2H30M PRN IV PATENCY; Start 09/02/16 at 09:10; Stop 09/02/16 at 21:09; Status UNV Info (PHARMACY MONITORING -- do not chart) 1 each PRN DAILY PRN MC SEE COMMENTS ; Start 09/02/16 at 09:15; Status UNV Info (PHARMACY MONITORING -- do not chart) 1 each PRN DAILY PRN MC SEE COMMENTS ; Start 09/02/16 at 09:15; Status UNV Info 1 each 1 each PRN DAILY PRN MC SEE COMMENTS; Start 09/02/16 at 09:15; Status UNV Vancomycin HCl 500 mg/Sodium Chloride 100 ml @ 100 mls/hr QMWF IV ; Start 09/04 at 16:00 Magnesium Sulfate/ Dextrose 50 ml @ 25 mls/hr 1X ONCE IV Last administered on 09/02/16t 20:00; Start 09/02/16 at 19:45; Stop 09/02/16 at 21:44; Status DC Sodium Chloride 1,000 ml @ 1,000 mls/hr Q1H PRN IV hypotension; Start 09/04/16 at 13:07; Stop 09/04/16 at 19:06 Albumin Human (Albuminar) 200 ml @ 200 mls/hr 1X PRN PRN IV Hypotension; Start 09/04/16 at 13:15; Stop 09/04/16 at 19:14 Acetaminophen (Tylenol) 500 mg 1X PRN PRN PO MILD PAIN / TEMP; Start 09/04/16 at 13:15; Stop 09/05/16 at 13:14 Diphenhydramine HCl (Benadryl) 25 mg 1X PRN PRN IV ITCHING; Start 09/04/16 at 13:15; Stop 09/05/16 at 13:14 Diphenhydramine HCl (Benadryl) 25 mg 1X PRN PRN IV ITCHING; Start 09/04/16 at 13:15; Stop 09/05/16 at 13:14 Labetalol HCl (Normodyne) 10 mg PRN Q1HR PRN IVP SBP > 180; Start 09/04/16 at 13:15; Stop 09/05/16 at 13:14 Info (PHARMACY MONITORING -- do not chart) 1 each PRN DAILY PRN MC SEE COMMENTS ; Start 09/04/16 at 13:15; Status UNV Active Scripts Active Reported Gabapentin 100 Mg Capsule 100 Mg PO BID Ranexa (Ranolazine) 500 Mg Tab.er.12h 1 Tab PO DAILY Phoslo (Calcium Acetate) 667 Mg Capsule 667 Mg PO TIDWMEALS Polyethylene Glycol 3350 255 Gm Powder 17 Gm PO DAILY PRN Anoro Ellipta 62.5-25 Mcg Inh (Umeclidinium Brm/Vilanterol Tr) 1 Each Disk.w.dev 1 Each IH DAILY Clopidogrel (Clopidogrel Bisulfate) 75 Mg Tablet 1 Tab PO DAILY Percocet 7.5-325 Mg Tablet (Oxycodone/Acetaminophen) 1 Each Tablet 1 Tab PO TID PRN Dialyvite 800 Tablet (Folic Acid/Vitamin B Comp W-C) 0.8 Mg Tablet 0.8 Mg PO DAILY NITROGLYCERIN SubLingual (Nitroglycerin) 0.4 Mg Tab.subl 0.4 Mg SL PRN Humulin 70-30 Vial (Hum Insulin Nph/Reg Insulin Hm) 100 Unit/1 Ml Vial 30 Unit SQ BIDWMEALS Allopurinol 300 Mg Tablet 300 Mg PO DAILY Pepcid (Famotidine) 20 Mg Tablet 20 Mg PO QHS Lanoxin (Digoxin) 125 Mcg Tablet 125 Mcg PO DAILY Flomax (Tamsulosin Hcl) 0.4 Mg Cap.er.24h 0.4 Mg PO HS Aspirin 81 Mg Tab.chew 81 Mg PO DAILY Vitals/I & O Vital Sign - Last 24 Hours 09/03/16 09/03/16 09/03/16 09/03/16 19:00 20:00 20:00 20:17 Temp 97.9 97.9 Pulse 64 Resp 18 B/P 101/47 Pulse Ox 99 95 O2 Delivery Nasal Cannula Nasal Cannula Nasal Cannula Nasal Cannula O2 Flow Rate 1.0 1.0 1.0 1.0 09/03/16 09/04/16 09/04/16 09/04/16 23:24 02:01 02:58 03:01 Temp 98.1 98.1 Pulse 68 Resp 18 18 B/P 108/53 Pulse Ox 96 96 96 O2 Delivery Nasal Cannula Nasal Cannula Nasal Cannula O2 Flow Rate 1.0 1.0 1.0 09/04/16 09/04/16 09/04/16 09/04/16 03:25 03:58 07:00 07:19 Temp 98.2 96.6 98.2 96.6 Pulse 57 66 Resp 18 18 B/P 112/48 108/52 Pulse Ox 100 100 97 97 O2 Delivery Nasal Cannula Nasal Cannula Nasal Cannula Room Air O2 Flow Rate 1.0 1.0 1.0 09/04/16 09/04/16 09/04/16 09/04/16 08:00 08:51 08:53 08:53 Pulse 66 B/P 108/52 108/52 O2 Delivery Nasal Cannula Nasal Cannula O2 Flow Rate 1.0 1.0 09/04/16 09/04/16 09/04/16 09/04/16 09:55 11:00 11:15 15:55 Temp 96.1 96.1 Pulse 63 Resp 16 B/P 117/44 Pulse Ox 100 O2 Delivery Nasal Cannula Nasal Cannula Nasal Cannula Nasal Cannula O2 Flow Rate 1.0 1.0 1.0 1.0 09/04/16 16:51 Resp 17 Pulse Ox 95 Intake and Output 09/03/16 09/03/16 09/04/16 15:00 23:00 07:00 Intake Total 240 ml 930 ml 900 ml Output Total 0 ml Balance 240 ml 930 ml 900 ml LEXI ALTAMIRANO MD Sep 04, 2016 18:07
[2016-09-04 19:12] VITALS: BP 108/52
[2016-09-04] MEDS: TAMSULOSIN 0.4 MG CAP.ER.24H. PO SCH (20:32)
[2016-09-04 23:22] VITALS: BP 105/48
[2016-09-05 03:10] VITALS: BP 108/50
[2016-09-05] MEDS: HEPARIN PF for SUB-Q USE 5,000 UNIT/0.5 ML VIAL. SQ SCH ×3 (05:52→21:12)
[2016-09-05] MEDS: PIPERACILLIN/TAZOBACTAM 2.25 GM in IV NORMAL SALINE 50ML 50 ML IV SCH ×3 (05:52→21:05)
[2016-09-05 07:00] VITALS: BP 123/46
[2016-09-05] MEDS: ALBUTEROL SULFATE 2.5 MG/3 ML NEBU. NEB SCH ×4 (07:22→19:34)
[2016-09-05] MEDS: BUDESONIDE 0.5 MG/2 ML NEBU NEB SCH ×2 (07:22→19:34)
[2016-09-05] MEDS: HYDROMORPHONE 2 MG/ML VIAL. IV PRN (08:30)
[2016-09-05] MEDS: DOCUSATE SODIUM 100 MG CAPSULE PO SCH ×2 (09:00→21:00)
[2016-09-05] MEDS: OXYCODONE/APAP 7.5/325 TABLET. PO PRN ×2 (09:40→21:05)
[2016-09-05] MEDS: DIGOXIN 125 MCG TABLET PO SCH (09:41)
[2016-09-05] MEDS: RANOLAZINE 500 MG TAB.ER.12H PO SCH (09:41)
[2016-09-05] MEDS: GABAPENTIN 100 MG CAPSULE. PO SCH ×2 (09:41→21:05)
[2016-09-05] MEDS: FOLIC/VIT B COMP W-C (RENAL) TABLET. PO SCH (09:41)
[2016-09-05] MEDS: ASPIRIN 81 MG TAB.CHEW PO SCH (09:42)
[2016-09-05] MEDS: CALCIUM ACETATE 667 MG CAPSULE PO SCH ×3 (09:42→17:32)
[2016-09-05] MEDS: INSULIN DETEMIR 300 UNITS/3 ML INSULN.PEN. SQ SCH ×2 (09:44→17:34)
--- NOTE | 2016-09-05 10:51 | PDOC ---
Renal-Progress Notes Subjective Notes Notes TIRED History of Present Illness Hx of present illness BETTER Vitals Vitals Vital Signs Date Time Temp Pulse Resp B/P Pulse Ox O2 Delivery O2 Flow Rate FiO2 09/05/16 09:41 67 123/46 09/05/16 09:40 20 Nasal Cannula 1.0 09/05/16 07:22 94 09/05/16 07:00 98.8 98.8 Weight Weight [ ] I.O. Intake and Output Intake and Output 09/05/16 07:00 Intake Total 720 ml Balance 720 ml Intake Oral 720 ml Labs Labs Laboratory Tests Test 09/04/16 12:01 09/04/16 16:59 09/04/16 17:16 09/04/16 19:48 Glucose (Fingerstick) 171mg/dL (70-99) 66mg/dL (70-99) 71mg/dL (70-99) 133mg/dL (70-99) Test 09/04/16 20:52 09/05/16 07:48 Glucose (Fingerstick) 132mg/dL (70-99) 125mg/dL (70-99) Micro Micro Microbiology 08/31/16 Blood Culture - Preliminary, Resulted NO GROWTH AFTER 4 DAYS 09/03/16 Gram Stain - Final, Complete Review of Systems Constitutional: yes: alert, oriented, weakness Ears/Nose/Throat: Yes: no symptom reported Eyes: Yes: no symptom reported Pulmonary: Yes no symptom reported Cardiovascular: Yes no symptom reported Gastrointestional: Yes: no symptom reported Genitourinary: Yes: no symptom reported Skin: Yes no symptom reported Physical Exam General Appearance: no apparent distress Skin: warm Respiratory: bilateral CTA Heart: S1S2, RRR Abdomen: soft, bowel sounds present Extremities: pulses present Neurology: alert Musculoskeletal: Muscle atrophy, Weakness Assessment Assessment IMP ESRD ANEMIA S/P RIGHT NEPHRECTOMY/REMOVAL OF RETROPERITONEAL MASS DECONDITIONING PLAN HD WEDNESDAY INCREASE ACTIVITY SURGERY FOLLOWING NAVIN ACEVEDO MD Sep 05, 2016 10:51
[2016-09-05 11:00] VITALS: BP 119/41
[2016-09-05] MEDS: HYDROCODONE/APAP 5/325MG TABLET. PO PRN (12:23)
[2016-09-05] MEDS ORDERED: DEXTROSE 50% 25 GM / 50ML DISP.SYRIN. IV PRN (12:30)
[2016-09-05] MEDS: INSULIN ASPART 300 UNITS/3 ML INSULN.PEN SQ SCH ×2 (13:19→17:33)
[2016-09-05] MEDS: VANCOMYCIN PER PHARMACY MC PRN (13:28)
--- NOTE | 2016-09-05 13:51 | PDOC ---
Provider Note Provider Note feels well. no n/v. pain controlled. +flatus afeb vss abd soft nd nt bandage dry a/p cont supportive care. NKECHI DUCKWORTH MD Sep 05, 2016 13:51
--- NOTE | 2016-09-05 14:27 | PDOC ---
SUBJECTIVE Subjective no new complaints, stable, in room , he is sitting in recliner chair OBJECTIVE Vital Signs Vital Signs Date Time Temp Pulse Resp B/P Pulse Ox O2 Delivery O2 Flow Rate FiO2 09/05/16 12:23 16 Nasal Cannula 1.0 09/05/16 11:25 99 Nasal Cannula 1.0 09/05/16 11:00 97.9 73 18 119/41 100 Room Air 1.0 97.9 09/05/16 10:40 14 Nasal Cannula 1.0 09/05/16 09:41 67 123/46 09/05/16 09:41 67 123/46 09/05/16 09:40 20 Nasal Cannula 1.0 09/05/16 09:00 20 Nasal Cannula 1.0 09/05/16 08:30 20 Room Air 09/05/16 07:22 94 Nasal Cannula 1.0 09/05/16 07:00 98.8 67 18 123/46 95 Nasal Cannula 1.0 98.8 09/05/16 03:10 98.2 69 18 108/50 94 Nasal Cannula 1.0 98.2 09/04/16 23:22 98.2 72 18 105/48 97 Nasal Cannula 1.0 98.2 09/04/16 20:53 18 Nasal Cannula 09/04/16 20:00 Nasal Cannula 1.0 09/04/16 19:36 Nasal Cannula 2.0 09/04/16 19:12 97.3 65 16 108/52 100 Nasal Cannula 1.0 97.3 09/04/16 16:51 17 95 09/04/16 15:55 Nasal Cannula 1.0 I & O Intake and Output 09/05/16 07:00 Intake Total 720 ml Balance 720 ml Intake Oral 720 ml PHYSICAL EXAM Physical Exam lung clear heart RRR abd soft Ext no edema ASSESSMENT/PLAN Assessment/Plan 1-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 2-Leukocytosis - better 3- Abd pain - better 4- ESRD on HD 5- Hx of Pacemaker continue supportive post op coarse Problems: COMMENT Lab Laboratory Tests Test 09/04/16 16:59 09/04/16 17:16 09/04/16 19:48 09/04/16 20:52 Glucose (Fingerstick) 66mg/dL (70-99) 71mg/dL (70-99) 133mg/dL (70-99) 132mg/dL (70-99) Test 09/05/16 07:48 09/05/16 11:21 Glucose (Fingerstick) 125mg/dL (70-99) 259mg/dL (70-99) RYLEE JEROME MD Sep 05, 2016 14:27
[2016-09-05 15:00] VITALS: BP 108/37
--- NOTE | 2016-09-05 15:33 | PDOC ---
PROGRESS NOTES Subjective Subjective Patient has no new complaints today. Continues to improve with a by mouth intake. Not very active. Objective Objective Vital Signs Date Time Temp Pulse Resp B/P Pulse Ox O2 Delivery O2 Flow Rate FiO2 09/05/16 13:23 16 Nasal Cannula 1.0 09/05/16 11:25 99 09/05/16 11:00 97.9 73 119/41 97.9 Intake and Output 09/05/16 07:00 Intake Total 720 ml Balance 720 ml Intake Oral 720 ml Physical Exam Physical Exam No changes in cardiac exam Assessment Assessment Patient appears to be compensated cardiac-pena. We need to increase his level of activity by having him ambulate around the nurse's station. I will be here tomorrow and will be back to see the patient on Wednesday. Problems Medical Problems: (1) Retroperitoneal mass Status: Acute Comment Review of Relevant I have reviewed the following items nicole (where applicable) has been applied. Labs Laboratory Tests Test 09/03/16 16:23 09/03/16 21:20 09/04/16 04:30 09/04/16 07:27 Glucose (Fingerstick) 148mg/dL (70-99) 168mg/dL (70-99) 101mg/dL (70-99) Sodium Level 135mmol/L (136-145) Potassium Level 3.9mmol/L (3.5-5.1) Chloride Level 96mmol/L (98-107) Carbon Dioxide Level 27mmol/L (21-32) Anion Gap 12 (6-14) Blood Urea Nitrogen 44mg/dL (8-26) Creatinine 6.2mg/dL (0.7-1.3) Estimated GFR (Cockcroft-Gault) 9.1 Glucose Level 122mg/dL (70-99) Calcium Level 8.3mg/dL (8.5-10.1) Test 09/04/16 12:01 09/04/16 16:59 09/04/16 17:16 09/04/16 19:48 Glucose (Fingerstick) 171mg/dL (70-99) 66mg/dL (70-99) 71mg/dL (70-99) 133mg/dL (70-99) Test 09/04/16 20:52 09/05/16 07:48 09/05/16 11:21 Glucose (Fingerstick) 132mg/dL (70-99) 125mg/dL (70-99) 259mg/dL (70-99) Laboratory Tests Test 09/04/16 16:59 09/04/16 17:16 09/04/16 19:48 09/04/16 20:52 Glucose (Fingerstick) 66mg/dL (70-99) 71mg/dL (70-99) 133mg/dL (70-99) 132mg/dL (70-99) Test 09/05/16 07:48 09/05/16 11:21 Glucose (Fingerstick) 125mg/dL (70-99) 259mg/dL (70-99) Microbiology 08/31/16 Blood Culture - Preliminary, Resulted NO GROWTH AFTER 4 DAYS 09/03/16 Gram Stain - Final, Complete Medications Current Medications Ondansetron HCl (Zofran) 4 mg PRN Q6HRS PRN IV Nausea; Start 08/25/16 at 07:00 ; Stop 08/26/16 at 06:59; Status DC Fentanyl Citrate (Fentanyl 2ml Vial) 25 mcg PRN Q5MIN PRN IV MILD PAIN Last administered on 08/25/16t 17:41; Start 08/25/16 at 07:00; Stop 08/25/16 at 23:18 ; Status DC Fentanyl Citrate (Fentanyl 2ml Vial) 50 mcg PRN Q5MIN PRN IV MODERATE PAIN; Start 08/25/16 at 07:00; Stop 08/25/16 at 23:18; Status DC Morphine Sulfate 1 mg 1 mg PRN Q10MIN PRN IV SEVERE PAIN; Start 08/25/16 at 07: 00; Stop 08/25/16 at 23:18; Status DC Lactated Ringer's (Iv Lactated Ringers) 1,000 ml @ 0 mls/hr Q0M IV ; Start at 07:00; Stop 08/25/16 at 18:59; Status DC Lidocaine HCl 2 ml 1X PRN PRN ID IV START; Start 08/25/16 at 07:00; Stop at 06:59; Status DC Hydromorphone HCl (Dilaudid) 0.5 mg PRN Q10MIN PRN IV SEVERE PAIN, Second choice; Start 08/25/16 at 07:00; Stop 08/25/16 at 23:18; Status DC Prochlorperazine Edisylate 5 mg 5 mg PACU PRN PRN IV NAUSEA; Start 08/25/16 at 07:00; Stop 08/25/16 at 23:18; Status DC Cefazolin Sodium/ Dextrose 50 ml @ 100 mls/hr 1X PREOP PRN IV PRIOR TO PROCEDURE Last administered on 08/25/16 08:30; Start 08/25/16 at 06:00; Stop at 18:00; Status DC Sodium Chloride (Iv Sodium Chloride 0.9% 1000ml Bag) 1,000 ml @ 0 mls/hr 1X ONCE IV Last administered on 08/25/16 06:48; Start 08/25/16 at 06:45; Stop at 06:51; Status DC Scopolamine (Transderm-Scop) 1 patch 1X ONCE TD Last administered on 07:03; Start 08/25/16 at 07:00; Stop 08/25/16 at 07:01; Status DC Dexamethasone Sodium Phosphate (Decadron) 4 mg ONCE ONCE IV Last administered on 08/25/16 07:05; Start 08/25/16 at 07:00; Stop 08/25/16 at 07:01; Status DC Ondansetron HCl (Zofran) 4 mg 1X ONCE IV Last administered on 08/25/16 07:03 ; Start 08/25/16 at 07:00; Stop 08/25/16 at 07:01; Status DC Sevoflurane (Ultane) 60 ml STK-MED ONCE IH ; Start 08/25/16 at 07:10; Stop 08/25 at 07:11; Status DC Fentanyl Citrate 250 mcg 250 mcg STK-MED ONCE .ROUTE ; Start 08/25/16 at 07:11; Stop 08/25/16 at 07:12; Status DC Propofol (Diprivan) 20 ml @ As Directed STK-MED ONCE IV ; Start 08/25/16 at 07: 11; Stop 08/25/16 at 07:12; Status DC Lidocaine HCl 100 mg STK-MED ONCE .ROUTE ; Start 08/25/16 at 07:11; Stop at 07:12; Status DC Ondansetron HCl (Zofran) 4 mg STK-MED ONCE .ROUTE ; Start 08/25/16 at 07:11; Stop 08/25/16 at 07:12; Status DC Dexamethasone Sodium Phosphate (Decadron) 20 mg STK-MED ONCE .ROUTE ; Start at 07:11; Stop 08/25/16 at 07:12; Status DC Etomidate (Amidate) 20 mg STK-MED ONCE IV ; Start 08/25/16 at 07:11; Stop at 07:12; Status DC Rocuronium [place] (Zemuron) 50 mg STK-MED ONCE .ROUTE ; Start 08/25/16 at 07:30 ; Stop 08/25/16 at 07:31; Status DC Ketamine HCl 500 mg STK-MED ONCE .ROUTE ; Start 08/25/16 at 09:54; Stop at 09:55; Status DC Rocuronium [place] (Zemuron) 50 mg STK-MED ONCE .ROUTE ; Start 08/25/16 at 11:00 ; Stop 08/25/16 at 11:01; Status DC Cellulose 1 each STK-MED ONCE .ROUTE Last administered on 08/25/16t 11:15; Start 08/25/16 at 11:14; Stop 08/25/16 at 11:15; Status DC Glycopyrrolate (Robinul) 1 mg STK-MED ONCE .ROUTE ; Start 08/25/16 at 11:25; Stop 08/25/16 at 11:26; Status DC Neostigmine Methylsulfate 5 mg STK-MED ONCE .ROUTE ; Start 08/25/16 at 11:25; Stop 08/25/16 at 11:26; Status DC Enoxaparin Sodium (Lovenox 30mg Syringe) 30 mg QHS SQ Last administered on 08/25t 21:24; Start 08/25/16 at 21:00; Stop 08/26/16 at 14:21; Status DC Sodium Chloride 3 ml 3 ml QSHIFT PRN IV AFTER MEDS AND BLOOD DRAWS; Start 08/25 at 11:30 Lactated Ringer's (Iv Lactated Ringers) 1,000 ml @ 100 mls/hr Q10H IV ; Start 08/25/16 at 11:30; Stop 08/26/16 at 09:11; Status DC Acetaminophen/ Hydrocodone Bitart (Lortab 5/325) 1 tab PRN Q4HRS PRN PO MODERATE PAIN Last administered on 09/05/16 12:23; Start 08/25/16 at 11:30 Hydromorphone HCl (Dilaudid) 0.2 mg PRN Q1HR PRN IV PAIN Last administered on 08:30; Start 08/25/16 at 11:30 Docusate Sodium (Colace) 100 mg BID PO Last administered on 09/02/16 14:35; Start 08/25/16 at 21:00 Ondansetron HCl (Zofran) 4 mg PRN Q6HRS PRN IV NAUESA, 1ST CHOICE Last administered on 09/02/16 16:22; Start 08/25/16 at 11:30 Insulin Human Regular 3 unit 3 unit 1X ONCE IV Last administered on 08/25/16 12:49; Start 08/25/16 at 12:45; Stop 08/25/16 at 12:46; Status DC Magnesium Sulfate/ Dextrose (Magnesium Sulfate PREMIX 2GM) 50 ml @ 25 mls/hr PRN DAILY PRN IV for Mag < 1.7 on am labs; Start 08/25/16 at 17:45 Hydralazine HCl 20 mg 20 mg PRN Q4HRS PRN IVP ELEVATED BP, SEE COMMENTS; Start 08/25/16 at 17:45 Sodium Chloride 1,000 ml @ 1,000 mls/hr Q1H PRN IV hypotension; Start 08/26/16 at 09:00; Stop 08/26/16 at 14:59; Status DC Sodium Chloride (Iv Sodium Chloride 0.9% 1000ml Bag) 1,000 ml @ 400 mls/hr Q2H30M PRN IV PATENCY; Start 08/26/16 at 09:00; Stop 08/26/16 at 20:59; Status DC Info (PHARMACY MONITORING -- do not chart) 1 each PRN DAILY PRN MC SEE COMMENTS ; Start 08/26/16 at 10:00 Heparin Sodium (Porcine) 5000 unit 5,000 unit Q8HRS SQ Last administered on 14:52; Start 08/26/16 at 22:00 Magnesium Sulfate/ Dextrose (Magnesium Sulfate PREMIX 2GM) 50 ml @ 25 mls/hr 1X ONCE IV Last administered on 08/26/16 21:34; Start 08/26/16 at 21:30; Stop 08/26/16 at 23:29; Status DC Allopurinol (Zyloprim) 300 mg DAILY PO Last administered on 08/27/16 16:06; Start 08/27/16 at 16:00; Stop 08/28/16 at 11:11; Status DC Aspirin (Children'S Aspirin) 81 mg DAILY PO Last administered on 09/05/16 09: 42; Start 08/27/16 at 16:00 Calcium Acetate (Phoslo) 667 mg TIDWMEALS PO Last administered on 09/05/16 12: 22; Start 08/27/16 at 17:00 Digoxin (Lanoxin) 125 mcg DAILY PO Last administered on 09/05/16 09:41; Start 08/27/16 at 16:00 Folic Acid/ Multivitamins/Vit B12 (Nephro-Mouna) 1 tab DAILY PO Last administered on 09/05/16 09:41; Start 08/27/16 at 16:00 Gabapentin (Neurontin) 100 mg BID PO Last administered on 09/05/16 09:41; Start 08/27/16 at 21:00 Nitroglycerin (Nitrostat) 0.4 mg PRN Q5MIN PRN SL CHEST PAIN; Start 08/27/16 at 15:30 Oxycodone/ Acetaminophen (Percocet 7.5/ 325) 1 tab PRN TID PRN PO SEVERE PAIN Last administered on 09/05/16 09:40; Start 08/27/16 at 15:30 Polyethylene Glycol (miraLAX PACKET) 17 gm PRN BID PRN PO CONSTIPATION Last administered on 08/29/16 08:58; Start 08/28/16 at 09:00 Ranolazine (Ranexa) 500 mg DAILY PO Last administered on 09/05/16 09:41; Start 08/27/16 at 16:00 Tamsulosin HCl (Flomax) 0.4 mg QHS PO Last administered on 09/04/16 20:32; Start 08/27/16 at 21:00 Insulin Detemir (Levemir) 30 units BIDWMEALS SQ Last administered on 08/27/16 17:34; Start 08/27/16 at 17:00; Stop 08/28/16 at 09:01; Status DC Albuterol Sulfate (Ventolin Neb Soln) 2.5 mg RTQID NEB Last administered on 11:25; Start 08/27/16 at 16:00 Budesonide 0.5 mg 0.5 mg RTBID NEB Last administered on 09/05/16 07:22; Start 08/27/16 at 20:00 Sodium Chloride 1,000 ml @ 1,000 mls/hr Q1H PRN IV hypotension; Start 08/28/16 at 07:46; Stop 08/28/16 at 13:45; Status DC Albumin Human (Albuminar) 200 ml @ 200 mls/hr 1X PRN PRN IV Hypotension; Start 08/28/16 at 08:00; Stop 08/28/16 at 13:59; Status DC Diphenhydramine HCl 25 mg 25 mg 1X PRN PRN IV ITCHING; Start 08/28/16 at 08:00 ; Stop 08/29/16 at 07:59; Status DC Sodium Chloride (Iv Sodium Chloride 0.9% 1000ml Bag) 1,000 ml @ 400 mls/hr Q2H30M PRN IV PATENCY; Start 08/28/16 at 07:46; Stop 08/28/16 at 19:45; Status DC Info (PHARMACY MONITORING -- do not chart) 1 each PRN DAILY PRN MC SEE COMMENTS ; Start 08/28/16 at 08:00; Stop 08/28/16 at 08:00; Status DC Info (PHARMACY MONITORING -- do not chart) 1 each PRN DAILY PRN MC SEE COMMENTS ; Start 08/28/16 at 08:00; Stop 08/28/16 at 08:00; Status DC Lidocaine HCl (Xylocaine-Mpf 1% Vial) 2 ml 1X ONCE INJ Last administered on 08:51; Start 08/28/16 at 08:00; Stop 08/28/16 at 08:01; Status DC Insulin Detemir (Levemir) 20 units BIDWMEALS SQ Last administered on 08/28/16 16:33; Start 08/28/16 at 17:00; Stop 08/29/16 at 12:14; Status DC Allopurinol (Zyloprim) 300 mg Q48H PO Last administered on 09/04/16 08:52; Start 08/29/16 at 09:00 Dextrose 12.5 gm PRN Q15MIN PRN IV SEE COMMENTS; Start 08/28/16 at 11:30 Insulin Detemir (Levemir) 16 units BIDWMEALS SQ ; Start 08/29/16 at 17:00; Status UNV Insulin Detemir (Levemir) 16 units 1X ONCE SQ Last administered on 08/29/16 12:17; Start 08/29/16 at 12:15; Stop 08/29/16 at 12:19; Status DC Insulin Detemir (Levemir) 16 units BIDWMEALS SQ Last administered on 08/30/16 17:03; Start 08/29/16 at 17:00; Stop 08/31/16 at 08:30; Status DC Budesonide (Pulmicort) 0.5 mg 1X ONCE NEB ; Start 08/31/16 at 00:15; Stop 08/31 at 00:16; Status DC Albuterol/ Ipratropium (Duoneb) 3 ml 1X ONCE NEB Last administered on 00:08; Start 08/31/16 at 00:15; Stop 08/31/16 at 00:16; Status DC Insulin Detemir 14 units 14 units BIDWMEALS SQ Last administered on 09/05/16 09:44; Start 08/31/16 at 09:00 Sodium Chloride (Iv Sodium Chloride 0.9% 1000ml Bag) 1,000 ml @ 1,000 mls/hr Q1H PRN IV hypotension; Start 08/31/16 at 08:41; Stop 08/31/16 at 14:40; Status DC Diphenhydramine HCl (Benadryl) 25 mg 1X PRN PRN IV ITCHING; Start 08/31/16 at 08:45; Stop 08/31/16 at 18:00; Status DC Diphenhydramine HCl (Benadryl) 25 mg 1X PRN PRN IV ITCHING; Start 08/31/16 at 08:45; Stop 08/31/16 at 18:00; Status DC Labetalol HCl 10 mg 10 mg PRN Q1HR PRN IVP SBP > 180; Start 08/31/16 at 08:45; Stop 08/31/16 at 18:00; Status DC Sodium Chloride (Iv Sodium Chloride 0.9% 1000ml Bag) 1,000 ml @ 400 mls/hr Q2H30M PRN IV PATENCY; Start 08/31/16 at 08:41; Stop 08/31/16 at 20:40; Status DC Info (PHARMACY MONITORING -- do not chart) 1 each PRN DAILY PRN MC SEE COMMENTS ; Start 08/31/16 at 08:45; Status Cancel Iohexol (Omnipaque 240 Mg/ml) 50 ml 1X ONCE PO Last administered on 08/31/16 16:16; Start 08/31/16 at 15:30; Stop 08/31/16 at 15:31; Status DC Acetaminophen 500 mg 500 mg PRN Q6HRS PRN PO MILD PAIN / TEMP Last administered on 08/31/16 23:43; Start 08/31/16 at 16:00 Piperacillin Sod/ Tazobactam Sod/ Sodium Chloride (Zosyn/Iv Sodium Chloride 0.9 % 50ml) 50 ml @ 100 mls/hr Q8HRS IV Last administered on 09/05/16 14:49; Start 08/31/16 at 22:00 Vancomycin HCl (Vanco Per Pharmacy) 1 each PRN DAILY PRN MC SEE COMMENTS Last administered on 09/05/16 13:28; Start 08/31/16 at 18:15 Tobramycin Sulfate 1 each 1 each PRN DAILY PRN MC SEE COMMENTS; Start 08/31/16 at 18:15; Stop 09/01/16 at 09:25; Status DC Vancomycin HCl/ Sodium Chloride (Iv Sodium Chloride 0.9% 500ml Bag) 500 ml @ 250 mls/hr 1X ONCE IV Last administered on 08/31/16 21:39; Start 08/31/16 at 18:30; Stop 08/31/16 at 20:29; Status DC Vancomycin HCl 1 each 1 each PRN DAILY PRN MC SEE COMMENTS; Start 08/31/16 at 18:15; Status UNV Piperacillin Sod/ Tazobactam Sod/ Sodium Chloride (Zosyn/Iv Sodium Chloride 0.9 % 50ml) 50 ml @ 100 mls/hr Q8HRS IV ; Start 08/31/16 at 22:00; Status UNV Tobramycin Sulfate (Nebcin Per Pharmacy) 1 each PRN DAILY PRN MC SEE COMMENTS; Start 08/31/16 at 18:15; Status UNV Vancomycin HCl 1 each 1 each 1X ONCE MC ; Start 09/02/16 at 05:00; Stop at 05:01; Status Cancel Tobramycin Sulfate/Sodium Chloride (Nebcin/Iv Sodium Chloride 0.9% 50ml) 53.75 ml @ 104 mls/hr 1X ONCE IV Last administered on 08/31/16 18:55; Start at 18:30; Stop 08/31/16 at 19:01; Status DC Tobramycin Sulfate 1 each 1X ONCE MC ; Start 09/02/16 at 05:00; Stop 09/02/16 at 05:00; Status DC Darbepoetin Jackson (Aranesp) 60 mcg WEEKLYHS SQ Last administered on 09/01/16 22 :02; Start 09/01/16 at 21:00 Vancomycin HCl 1 each 1 each 1X ONCE MC Last administered on 09/02/16 05:00; Start 09/02/16 at 05:00; Stop 09/02/16 at 05:01; Status DC Sodium Chloride (Iv Sodium Chloride 0.9% 1000ml Bag) 1,000 ml @ 1,000 mls/hr Q1H PRN IV hypotension; Start 09/02/16 at 09:10; Stop 09/02/16 at 15:09; Status DC Diphenhydramine HCl (Benadryl) 25 mg 1X PRN PRN IV ITCHING; Start 09/02/16 at 09:15; Stop 09/03/16 at 09:14; Status DC Diphenhydramine HCl 25 mg 25 mg 1X PRN PRN IV ITCHING; Start 09/02/16 at 09:15 ; Stop 09/03/16 at 09:14; Status UNV Sodium Chloride (Iv Sodium Chloride 0.9% 1000ml Bag) 1,000 ml @ 400 mls/hr Q2H30M PRN IV PATENCY; Start 09/02/16 at 09:10; Stop 09/02/16 at 21:09; Status UNV Info (PHARMACY MONITORING -- do not chart) 1 each PRN DAILY PRN MC SEE COMMENTS ; Start 09/02/16 at 09:15; Status UNV Info (PHARMACY MONITORING -- do not chart) 1 each PRN DAILY PRN MC SEE COMMENTS ; Start 09/02/16 at 09:15; Status UNV Info 1 each 1 each PRN DAILY PRN MC SEE COMMENTS; Start 09/02/16 at 09:15; Status UNV Vancomycin HCl 500 mg/Sodium Chloride 100 ml @ 100 mls/hr QMWF IV Last administered on 09/04/16 20:26; Start 09/04/16 at 16:00 Magnesium Sulfate/ Dextrose 50 ml @ 25 mls/hr 1X ONCE IV Last administered on 09/02/16 20:00; Start 09/02/16 at 19:45; Stop 09/02/16 at 21:44; Status DC Sodium Chloride 1,000 ml @ 1,000 mls/hr Q1H PRN IV hypotension; Start 09/04/16 at 13:07; Stop 09/04/16 at 19:06; Status DC Albumin Human (Albuminar) 200 ml @ 200 mls/hr 1X PRN PRN IV Hypotension; Start 09/04/16 at 13:15; Stop 09/04/16 at 19:14; Status DC Acetaminophen (Tylenol) 500 mg 1X PRN PRN PO MILD PAIN / TEMP; Start 09/04/16 at 13:15; Stop 09/05/16 at 13:14; Status DC Diphenhydramine HCl (Benadryl) 25 mg 1X PRN PRN IV ITCHING; Start 09/04/16 at 13:15; Stop 09/05/16 at 13:14; Status DC Diphenhydramine HCl (Benadryl) 25 mg 1X PRN PRN IV ITCHING; Start 09/04/16 at 13:15; Stop 09/05/16 at 13:14; Status DC Labetalol HCl (Normodyne) 10 mg PRN Q1HR PRN IVP SBP > 180; Start 09/04/16 at 13:15; Stop 09/05/16 at 13:14; Status DC Info (PHARMACY MONITORING -- do not chart) 1 each PRN DAILY PRN MC SEE COMMENTS ; Start 09/04/16 at 13:15; Status UNV Insulin Aspart (Novolog) 0-5 UNITS TIDWMEALS SQ Last administered on 09/05/16 13:19; Start 09/05/16 at 13:00 Dextrose 12.5 gm PRN Q15MIN PRN IV SEE COMMENTS; Start 09/05/16 at 12:30; Status UNV Active Scripts Active Reported Gabapentin 100 Mg Capsule 100 Mg PO BID Ranexa (Ranolazine) 500 Mg Tab.er.12h 1 Tab PO DAILY Phoslo (Calcium Acetate) 667 Mg Capsule 667 Mg PO TIDWMEALS Polyethylene Glycol 3350 255 Gm Powder 17 Gm PO DAILY PRN Anoro Ellipta 62.5-25 Mcg Inh (Umeclidinium Brm/Vilanterol Tr) 1 Each Disk.w.dev 1 Each IH DAILY Clopidogrel (Clopidogrel Bisulfate) 75 Mg Tablet 1 Tab PO DAILY Percocet 7.5-325 Mg Tablet (Oxycodone/Acetaminophen) 1 Each Tablet 1 Tab PO TID PRN Dialyvite 800 Tablet (Folic Acid/Vitamin B Comp W-C) 0.8 Mg Tablet 0.8 Mg PO DAILY NITROGLYCERIN SubLingual (Nitroglycerin) 0.4 Mg Tab.subl 0.4 Mg SL PRN Humulin 70-30 Vial (Hum Insulin Nph/Reg Insulin Hm) 100 Unit/1 Ml Vial 30 Unit SQ BIDWMEALS Allopurinol 300 Mg Tablet 300 Mg PO DAILY Pepcid (Famotidine) 20 Mg Tablet 20 Mg PO QHS Lanoxin (Digoxin) 125 Mcg Tablet 125 Mcg PO DAILY Flomax (Tamsulosin Hcl) 0.4 Mg Cap.er.24h 0.4 Mg PO HS Aspirin 81 Mg Tab.chew 81 Mg PO DAILY Vitals/I & O Vital Sign - Last 24 Hours 09/04/16 09/04/16 09/04/16 09/04/16 15:55 16:51 19:12 19:36 Temp 97.3 97.3 Pulse 65 Resp 17 16 B/P 108/52 Pulse Ox 95 100 O2 Delivery Nasal Cannula Nasal Cannula Nasal Cannula O2 Flow Rate 1.0 1.0 2.0 09/04/16 09/04/16 09/04/16 09/05/16 20:00 20:53 23:22 03:10 Temp 98.2 98.2 98.2 98.2 Pulse 72 69 Resp 18 18 18 B/P 105/48 108/50 Pulse Ox 97 94 O2 Delivery Nasal Cannula Nasal Cannula Nasal Cannula Nasal Cannula O2 Flow Rate 1.0 1.0 1.0 09/05/16 09/05/16 09/05/16 09/05/16 07:00 07:22 08:30 09:00 Temp 98.8 98.8 Pulse 67 Resp 18 20 20 B/P 123/46 Pulse Ox 95 94 O2 Delivery Nasal Cannula Nasal Cannula Room Air Nasal Cannula O2 Flow Rate 1.0 1.0 1.0 09/05/16 09/05/16 09/05/16 09/05/16 09:40 09:41 09:41 10:40 Pulse 67 67 Resp 20 14 B/P 123/46 123/46 O2 Delivery Nasal Cannula Nasal Cannula O2 Flow Rate 1.0 1.0 09/05/16 09/05/16 09/05/16 09/05/16 11:00 11:25 12:23 13:23 Temp 97.9 97.9 Pulse 73 Resp 18 16 16 B/P 119/41 Pulse Ox 100 99 O2 Delivery Room Air Nasal Cannula Nasal Cannula Nasal Cannula O2 Flow Rate 1.0 1.0 1.0 1.0 Intake and Output 09/04/16 09/04/16 09/05/16 15:00 23:00 07:00 Intake Total 120 ml 200 ml 400 ml Balance 120 ml 200 ml 400 ml LEXI ALTAMIRANO MD Sep 05, 2016 15:33
--- NOTE | 2016-09-05 15:53 | PDOC ---
Infectious Disease Note Subjective Subjective c/o diarrhea, 5 stools so far today Mild abdominal cramping earlier, better now Appetite fair ROS ROS GEN: Denies fevers, chills, sweats CV: Denies chest pain RESP: Denies shortness of air, cough GI: Denies n/v Vital Sign Vital Signs Vital Signs Date Time Temp Pulse Resp B/P Pulse Ox O2 Delivery O2 Flow Rate FiO2 09/05/16 13:23 16 Nasal Cannula 1.0 09/05/16 11:25 99 09/05/16 11:00 97.9 73 119/41 97.9 Physical Exam PHYSICAL EXAM GENERAL: Up in the chair, relaxed appearance HEENT: OC/OP clear NECK: Supple, no JVD, no LN LUNGS: Clear HEART: S1S2, pacemaker ABD: Soft, NT EXT: No edema, no cyanosis PRINTMAKER: Alert, oriented x 3, no focal neurologic deficit SKIN: No rash. Left foot ulcer IV: ok Labs Lab Laboratory Tests Test 09/04/16 16:59 09/04/16 17:16 09/04/16 19:48 09/04/16 20:52 Glucose (Fingerstick) 66mg/dL (70-99) 71mg/dL (70-99) 133mg/dL (70-99) 132mg/dL (70-99) Test 09/05/16 07:48 09/05/16 11:21 Glucose (Fingerstick) 125mg/dL (70-99) 259mg/dL (70-99) Micro BLOOD CULTURE Preliminary NO GROWTH AFTER 4 DAYS Objective Assessment Fever - better - elevated Procalcitonin. Flu neg. CT 08/31 - neg. ? source. Leukocytosis - better Abd pain - better CKD on HD Left foot ulcer - does not look infected. S/p Debridement 09/03 - Gram stain neg 09/03. 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 Plan Plan of Care Cont Vanc, Zosyn (Tobra times one 08/31) wean soon to po BC NGTD F/u labs/cults and response Attending Co-Sign The patient was seen and interviewed as well as examined at the bedside. The chart was reviewed. The case was discussed. Agree with the plan of care. seen on 09/05 BHUMI MACIAS APRN Sep 05, 2016 15:53 ERIKA PIEDRA MD Sep 06, 2016 12:09
[2016-09-05 19:12] VITALS: BP 104/46
[2016-09-05] MEDS: TAMSULOSIN 0.4 MG CAP.ER.24H. PO SCH (21:05)
[2016-09-05 23:12] VITALS: BP 108/63
[2016-09-06 03:42] VITALS: BP 115/56
[2016-09-06] MEDS: PIPERACILLIN/TAZOBACTAM 2.25 GM in IV NORMAL SALINE 50ML 50 ML IV SCH (05:42)
[2016-09-06] MEDS: HEPARIN PF for SUB-Q USE 5,000 UNIT/0.5 ML VIAL. SQ SCH ×3 (05:50→21:09)
[2016-09-06] MEDS: HYDROCODONE/APAP 5/325MG TABLET. PO PRN ×2 (06:33→21:04)
[2016-09-06] MEDS: ALBUTEROL SULFATE 2.5 MG/3 ML NEBU. NEB SCH ×4 (07:21→19:18)
[2016-09-06] MEDS: BUDESONIDE 0.5 MG/2 ML NEBU NEB SCH ×2 (07:21→19:18)
[2016-09-06 07:46] VITALS: BP 113/52
[2016-09-06] MEDS: INSULIN ASPART 300 UNITS/3 ML INSULN.PEN SQ SCH ×3 (08:00→17:04)
[2016-09-06] MEDS: DOCUSATE SODIUM 100 MG CAPSULE PO SCH ×2 (09:00→21:02)
[2016-09-06] MEDS: CALCIUM ACETATE 667 MG CAPSULE PO SCH ×3 (09:04→16:59)
[2016-09-06] MEDS: GABAPENTIN 100 MG CAPSULE. PO SCH ×2 (09:04→21:02)
[2016-09-06] MEDS: ASPIRIN 81 MG TAB.CHEW PO SCH (09:05)
[2016-09-06] MEDS: RANOLAZINE 500 MG TAB.ER.12H PO SCH (09:05)
[2016-09-06] MEDS: ALLOPURINOL 300 MG TABLET. PO SCH (09:05)
[2016-09-06] MEDS: FOLIC/VIT B COMP W-C (RENAL) TABLET. PO SCH (09:06)
[2016-09-06] MEDS: DIGOXIN 125 MCG TABLET PO SCH (09:06)
--- NOTE | 2016-09-06 10:02 | PDOC ---
Infectious Disease Note Subjective Subjective c/o diarrhea, watery stool Mild abdominal cramping ROS ROS GEN: Denies fevers, chills, sweats CV: Denies chest pain RESP: Denies shortness of air, cough GI: Denies n/v Vital Sign Vital Signs Vital Signs Date Time Temp Pulse Resp B/P Pulse Ox O2 Delivery O2 Flow Rate FiO2 09/06/16 09:06 64 113/52 09/06/16 07:46 96.8 18 97 Nasal Cannula 1.0 96.8 Physical Exam PHYSICAL EXAM GENERAL: Up in the chair, relaxed appearance HEENT: OC/OP clear NECK: Supple, no JVD, no LN LUNGS: Clear HEART: S1S2, pacemaker ABD: Soft, NT. RUQ incision well-approx. No redness or drainage. EXT: No edema, no cyanosis NEUROLOGY EPILEPSY PHYSICIAN: Alert, oriented x 3, no focal neurologic deficit SKIN: No rash. Left foot ulcer IV: ok Labs Lab Laboratory Tests Test 09/05/16 11:21 09/05/16 16:10 09/05/16 21:19 09/06/16 07:47 Glucose (Fingerstick) 259mg/dL (70-99) 170mg/dL (70-99) 144mg/dL (70-99) 48mg/dL (70-99) Test 09/06/16 08:28 Glucose (Fingerstick) 79mg/dL (70-99) Micro BLOOD CULTURE Preliminary NO GROWTH AFTER 5 DAYS Objective Assessment Fever - better - elevated Procalcitonin. Flu neg. CT 08/31 - neg. ? source. Diarrhea Leukocytosis - better Abd pain - better CKD on HD Left foot ulcer - does not look infected. S/p Debridement 09/03 - Gram stain neg 09/03. 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 Plan Plan of Care Cont Vanc, Zosyn (Tobra times one 08/31) wean soon to po BC neg Check c. diff Attending Co-Sign The patient was seen and interviewed as well as examined at the bedside. The chart was reviewed. The case was discussed. Agree with the plan of care. BHUMI MACIAS APRN Sep 06, 2016 10:01 ERIKA PIEDRA MD Sep 06, 2016 12:10
--- NOTE | 2016-09-06 11:05 | PDOC ---
Renal-Progress Notes Subjective Notes Notes STILL HAVING SOME DIARRHEA History of Present Illness Hx of present illness BETTER Vitals Vitals Vital Signs Date Time Temp Pulse Resp B/P Pulse Ox O2 Delivery O2 Flow Rate FiO2 09/06/16 09:06 64 113/52 09/06/16 07:46 96.8 18 97 Nasal Cannula 1.0 96.8 Weight Weight [ ] I.O. Intake and Output Intake and Output 09/06/16 07:00 Intake Total 1250 ml Balance 1250 ml Intake Oral 1250 ml # Voids 2 # Bowel Movements 1 Labs Labs Laboratory Tests Test 09/05/16 11:21 09/05/16 16:10 09/05/16 21:19 09/06/16 07:47 Glucose (Fingerstick) 259mg/dL (70-99) 170mg/dL (70-99) 144mg/dL (70-99) 48mg/dL (70-99) Test 09/06/16 08:28 Glucose (Fingerstick) 79mg/dL (70-99) Micro Micro Microbiology 08/31/16 Blood Culture - Final, Complete NO GROWTH AFTER 5 DAYS 09/03/16 Gram Stain - Final, Complete Review of Systems Constitutional: yes: alert, oriented, weakness Ears/Nose/Throat: Yes: no symptom reported Eyes: Yes: no symptom reported Pulmonary: Yes no symptom reported Cardiovascular: Yes no symptom reported Gastrointestional: Yes: no symptom reported Genitourinary: Yes: no symptom reported Skin: Yes no symptom reported Physical Exam General Appearance: no apparent distress Skin: warm Respiratory: bilateral CTA Heart: S1S2, RRR Abdomen: soft, bowel sounds present Extremities: pulses present Neurology: alert Musculoskeletal: Muscle atrophy, Weakness Assessment Assessment IMP ESRD ANEMIA S/P RIGHT NEPHRECTOMY/REMOVAL OF RETROPERITONEAL MASS DECONDITIONING DIARRHEA PLAN HD TOMORROW INCREASE ACTIVITY SURGERY FOLLOWING AWAIT PATH NAVIN ACEVEDO MD Sep 06, 2016 11:05
--- NOTE | 2016-09-06 11:24 | PDOC ---
SUBJECTIVE Subjective He feels better and wants to walk on the floor with physical therapy OBJECTIVE Objective Vital signs are stable Vital Signs Vital Signs Date Time Temp Pulse Resp B/P Pulse Ox O2 Delivery O2 Flow Rate FiO2 09/06/16 11:11 99 Nasal Cannula 1.0 09/06/16 09:06 64 113/52 09/06/16 09:05 64 113/52 09/06/16 07:46 96.8 64 18 113/52 97 Nasal Cannula 1.0 96.8 09/06/16 07:23 97 Nasal Cannula 1.0 09/06/16 06:33 20 99 Nasal Cannula 1.0 09/06/16 03:42 97.4 60 18 115/56 99 Nasal Cannula 1.0 97.4 09/05/16 23:12 98.0 66 18 108/63 95 Nasal Cannula 1.0 98.0 09/05/16 22:05 20 Nasal Cannula 1.0 09/05/16 21:05 20 100 Nasal Cannula 1.0 09/05/16 20:00 Nasal Cannula 1.0 09/05/16 19:41 100 Nasal Cannula 1.0 09/05/16 19:37 100 Nasal Cannula 1.0 09/05/16 19:12 97.5 60 16 104/46 100 Nasal Cannula 1.0 97.5 09/05/16 15:00 97.5 61 18 108/37 98 Nasal Cannula 1.0 97.5 09/05/16 13:23 16 Nasal Cannula 1.0 09/05/16 12:23 16 Nasal Cannula 1.0 09/05/16 11:25 99 Nasal Cannula 1.0 I & O Intake and Output 09/06/16 07:00 Intake Total 1250 ml Balance 1250 ml Intake Oral 1250 ml # Voids 2 # Bowel Movements 1 PHYSICAL EXAM Physical Exam No change in physical exam ASSESSMENT/PLAN Assessment/Plan 1-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 2-Leukocytosis - better 3- Abd pain - better 4- ESRD on HD 5- Hx of Pacemake 6- left foot ulcer followed by wound care 7- hypoglycemia episode last night , adjusted his long acting insulin ( Levemir ) Problems: COMMENT Lab Laboratory Tests Test 09/05/16 16:10 09/05/16 21:19 09/06/16 07:47 09/06/16 08:28 Glucose (Fingerstick) 170mg/dL (70-99) 144mg/dL (70-99) 48mg/dL (70-99) 79mg/dL (70-99) RYLEE JEROME MD Sep 06, 2016 11:24
[2016-09-06 11:26] VITALS: BP 12/50
--- NOTE | 2016-09-06 12:06 | PDOC ---
Provider Note Provider Note on IV abx. no abd pain. +diarrhea afeb abd soft nd nt inc cdi a/p cont supportive care. id following. c diff ordered. dialysis tomorrow. NKECHI DUCKWORTH MD Sep 06, 2016 12:06
[2016-09-06 15:21] VITALS: BP 121/52
[2016-09-06] MEDS: INSULIN DETEMIR 300 UNITS/3 ML INSULN.PEN. SQ SCH (17:04)
[2016-09-06 20:03] VITALS: BP 119/44
[2016-09-06] MEDS: TAMSULOSIN 0.4 MG CAP.ER.24H. PO SCH (21:02)
[2016-09-06 23:22] VITALS: BP 112/55
[2016-09-07 03:24] VITALS: BP 112/57
[2016-09-07 05:12] LABS: HEMATOCRIT 25.4 % (39.0-53.0); HEMOGLOBIN 8.4 g/dL (13.0-17.5); RED BLOOD COUNT 2.54 x10^6/uL (4.30-5.70); RED CELL DISTRIBUTION WIDTH 15.1 % (11.5-14.5); WHITE BLOOD COUNT 8.6 x10^3/uL (4.0-11.0)
[2016-09-07 05:47] LABS: CALCIUM 8.2 mg/dL (8.5-10.1); GFR 7.9; POTASSIUM 3.8 mmol/L (3.5-5.1)
[2016-09-07] MEDS: HEPARIN PF for SUB-Q USE 5,000 UNIT/0.5 ML VIAL. SQ SCH ×2 (06:02→13:17)
[2016-09-07 07:00] VITALS: BP 112/51
[2016-09-07] MEDS: ALBUTEROL SULFATE 2.5 MG/3 ML NEBU. NEB SCH ×3 (07:41→15:53)
[2016-09-07] MEDS: BUDESONIDE 0.5 MG/2 ML NEBU NEB SCH (07:41)
[2016-09-07] MEDS: INSULIN ASPART 300 UNITS/3 ML INSULN.PEN SQ SCH ×2 (08:00→12:00)
[2016-09-07] MEDS: INSULIN DETEMIR 300 UNITS/3 ML INSULN.PEN. SQ SCH (08:00)
[2016-09-07] MEDS ORDERED: IV NORMAL SALINE 1000ML BAG 1,000 ML IV PRN ×2 (08:17)
[2016-09-07] MEDS ORDERED: LIDOCAINE 1% PF 2 ML VIAL. INJ ONE (08:30)
[2016-09-07] MEDS ORDERED: DIPHENHYDRAMINE 50 MG/ML VIAL IV PRN ×2 (08:30)
[2016-09-07] MEDS ORDERED: DIALYSIS PATIENT. MC PRN ×2 (08:30)
[2016-09-07] MEDS: DOCUSATE SODIUM 100 MG CAPSULE PO SCH (09:00)
[2016-09-07] MEDS: RANOLAZINE 500 MG TAB.ER.12H PO SCH (09:00)
--- NOTE | 2016-09-07 10:05 | PDOC ---
Infectious Disease Note Subjective Subjective c/o diarrhea, watery stool Mild abdominal cramping ROS ROS GEN: Denies fevers, chills, sweats HEENT: Denies blurred vision, sore throat CV: Denies chest pain RESP: Denies shortness of air, cough GI: Denies n/v/d NEURO: Denies confusion, dizziness MSK: Denies weakness, joint pain/swelling Vital Sign Vital Signs Vital Signs Date Time Temp Pulse Resp B/P Pulse Ox O2 Delivery O2 Flow Rate FiO2 09/07/16 07:40 98 Nasal Cannula 1.0 09/07/16 07:00 97.3 64 14 112/51 97.3 Physical Exam PHYSICAL EXAM GENERAL: NAD, Alert HEENT: PERRL, OC/OP NECK: Supple, no JVD, no LN LUNGS: Clear HEART: S1S2, no gallop, no murmur ABD: Soft, NT, no organomegaly, no rebound EXT: No edema, no cyanosis LEAD SECURITY OFFICER: Alert, oriented x 3, no focal neurologic deficit SKIN: No rash IV: ok Labs Lab Laboratory Tests Test 09/06/16 11:28 09/06/16 13:59 09/06/16 16:22 09/06/16 20:48 Glucose (Fingerstick) 169mg/dL (70-99) 184mg/dL (70-99) 192mg/dL (70-99) 235mg/dL (70-99) Test 09/07/16 03:50 09/07/16 08:00 White Blood Count 8.6x10^3/uL (4.0-11.0) Red Blood Count 2.54x10^6/uL (4.30-5.70) Hemoglobin 8.4g/dL (13.0-17.5) Hematocrit 25.4% (39.0-53.0) Mean Corpuscular Volume 100fL (79-100) Mean Corpuscular Hemoglobin 33pg (25-35) Mean Corpuscular Hemoglobin Concent 33g/dL (31-37) Red Cell Distribution Width 15.1% (11.5-14.5) Platelet Count 142x10^3/uL (140-400) Sodium Level 137mmol/L (136-145) Potassium Level 3.8mmol/L (3.5-5.1) Chloride Level 97mmol/L (98-107) Carbon Dioxide Level 27mmol/L (21-32) Anion Gap 13 (6-14) Blood Urea Nitrogen 48mg/dL (8-26) Creatinine 7.0mg/dL (0.7-1.3) Estimated GFR (Cockcroft-Gault) 7.9 Glucose Level 144mg/dL (70-99) Calcium Level 8.2mg/dL (8.5-10.1) Glucose (Fingerstick) 104mg/dL (70-99) Objective Assessment Fever - better - elevated Procalcitonin. Flu neg. CT 08/31 - neg. ? source. Leukocytosis - better Abd pain - better CKD on HD Left foot ulcer - does not look infected. S/p Debridement 09/03 - Gram stain neg 09/03. 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 Plan Plan of Care off antibiotics supportive care ERIKA PIEDRA MD Sep 07, 2016 10:05
--- NOTE | 2016-09-07 11:37 | PDOC ---
Dialysis Progress Note Dialysis Note Dialysis Note Seen on Hemodialysis, tolerating treatment Okay for now Vitals on Hemodialysis: 122/56 72 afeb General Appearance: Awake: Alert Oriented x 2-3 Neck: No JVD or JVP Chest: CTA Enmanuel Heart: S1 S2 Abdomen - Soft NTND Extremities - No Edema ESRD: Dialysis as below F 180 NR 3.5 Hrs 3 K 2.5 Ca 140 Na 35 HC03 Qb 350 + Qd 500+ Heparin 0 Units Uf 2.0 Kgs or to dry weight as tolerated May give 25-50 gms of 25% Albumin if needed to maintain Hemodynamic stability Treatment plan reviewed and discussed with cow trimmer Vitals Vital Signs Vital Signs Date Time Temp Pulse Resp B/P Pulse Ox O2 Delivery O2 Flow Rate FiO2 09/07/16 07:40 98 Nasal Cannula 1.0 09/07/16 07:00 97.3 64 14 112/51 97.3 Labs Last Labs Laboratory Tests Test 09/05/16 16:10 09/05/16 21:19 09/06/16 07:47 09/06/16 08:28 Glucose (Fingerstick) 170mg/dL (70-99) 144mg/dL (70-99) 48mg/dL (70-99) 79mg/dL (70-99) Test 09/06/16 11:28 09/06/16 13:59 09/06/16 16:22 09/06/16 20:48 Glucose (Fingerstick) 169mg/dL (70-99) 184mg/dL (70-99) 192mg/dL (70-99) 235mg/dL (70-99) Test 09/07/16 03:50 09/07/16 08:00 White Blood Count 8.6x10^3/uL (4.0-11.0) Red Blood Count 2.54x10^6/uL (4.30-5.70) Hemoglobin 8.4g/dL (13.0-17.5) Hematocrit 25.4% (39.0-53.0) Mean Corpuscular Volume 100fL (79-100) Mean Corpuscular Hemoglobin 33pg (25-35) Mean Corpuscular Hemoglobin Concent 33g/dL (31-37) Red Cell Distribution Width 15.1% (11.5-14.5) Platelet Count 142x10^3/uL (140-400) Sodium Level 137mmol/L (136-145) Potassium Level 3.8mmol/L (3.5-5.1) Chloride Level 97mmol/L (98-107) Carbon Dioxide Level 27mmol/L (21-32) Anion Gap 13 (6-14) Blood Urea Nitrogen 48mg/dL (8-26) Creatinine 7.0mg/dL (0.7-1.3) Estimated GFR (Cockcroft-Gault) 7.9 Glucose Level 144mg/dL (70-99) Calcium Level 8.2mg/dL (8.5-10.1) Glucose (Fingerstick) 104mg/dL (70-99) Laboratory Tests Test 09/06/16 13:59 09/06/16 16:22 09/06/16 20:48 09/07/16 03:50 Glucose (Fingerstick) 184mg/dL (70-99) 192mg/dL (70-99) 235mg/dL (70-99) White Blood Count 8.6x10^3/uL (4.0-11.0) Red Blood Count 2.54x10^6/uL (4.30-5.70) Hemoglobin 8.4g/dL (13.0-17.5) Hematocrit 25.4% (39.0-53.0) Mean Corpuscular Volume 100fL (79-100) Mean Corpuscular Hemoglobin 33pg (25-35) Mean Corpuscular Hemoglobin Concent 33g/dL (31-37) Red Cell Distribution Width 15.1% (11.5-14.5) Platelet Count 142x10^3/uL (140-400) Sodium Level 137mmol/L (136-145) Potassium Level 3.8mmol/L (3.5-5.1) Chloride Level 97mmol/L (98-107) Carbon Dioxide Level 27mmol/L (21-32) Anion Gap 13 (6-14) Blood Urea Nitrogen 48mg/dL (8-26) Creatinine 7.0mg/dL (0.7-1.3) Estimated GFR (Cockcroft-Gault) 7.9 Glucose Level 144mg/dL (70-99) Calcium Level 8.2mg/dL (8.5-10.1) Test 09/07/16 08:00 Glucose (Fingerstick) 104mg/dL (70-99) Assessment Assessment Problems Medical Problems: (1) Retroperitoneal mass Status: Acute Problems: Plan Plan of Care Problems Medical Problems: (1) Retroperitoneal mass Status: Acute RIVKA PIEDRA MD Sep 07, 2016 11:37
[2016-09-07] MEDS: CALCIUM ACETATE 667 MG CAPSULE PO SCH ×2 (12:00→13:06)
[2016-09-07] MEDS: GABAPENTIN 100 MG CAPSULE. PO SCH (13:05)
[2016-09-07] MEDS: ASPIRIN 81 MG TAB.CHEW PO SCH (13:05)
[2016-09-07] MEDS: DIGOXIN 125 MCG TABLET PO SCH (13:07)
[2016-09-07] MEDS: FOLIC/VIT B COMP W-C (RENAL) TABLET. PO SCH (13:07)
--- NOTE | 2016-09-07 13:08 | PDOC3 ---
Discharge Summary* Date of Admission: Aug 25, 2016 Date of Discharge: Sep 07, 2016 Admitting Diagnosis Problems Medical Problems: (1) Retroperitoneal mass Status: Acute Final Diagnosis Problems Medical Problems: (1) Retroperitoneal mass Status: Acute CONSULTS Dr Trivedi (ID) Dr Trivedi (renal) Procedures ex lap, right nephrectomy, excision retroperitoneal mass Brief Hospital Course Mr. Calzada is a 65 old male with ESRD on hemodialysis who presented with a retroperitoneal mass of uncertain origin. He went to surgery and had removal of the mass and his right kidney. He progressed post op and was released to home on POD 13 Disposition/Orders: D/C to Home CONDITION AT DISCHARGE: Stable Diet: Renal Scheduled Allopurinol (Allopurinol) 300 MG PO DAILY (Reported) Aspirin (Aspirin) 81 MG PO DAILY (Reported) Calcium Acetate (Phoslo) 667 MG PO TIDWMEALS (Reported) Clopidogrel Bisulfate (Clopidogrel) 1 TAB PO DAILY (Reported) Digoxin (Lanoxin) 125 MCG PO DAILY (Reported) Famotidine (Pepcid) 20 MG PO QHS (Reported) Folic Acid/Vitamin B Comp W-C (Dialyvite 800 Tablet) 0.8 MG PO DAILY (Reported) Gabapentin (Gabapentin) 100 MG PO BID (Reported) Hum Insulin Nph/Reg Insulin Hm (Humulin 70-30 Vial) 30 UNIT SQ BIDWMEALS ( Reported) Ranolazine (Ranexa) 1 TAB PO DAILY (Reported) Tamsulosin Hcl (Flomax) 0.4 MG PO HS (Reported) Umeclidinium Brm/Vilanterol Tr (Anoro Ellipta 62.5-25 Mcg Inh) 1 EACH IH DAILY ( Reported) Scheduled PRN Nitroglycerin (NITROGLYCERIN SubLingual) 0.4 MG SL PRN CHEST PAIN (Reported) Oxycodone/Apap 7.5-325 (Percocet 7.5-325 Mg Tablet) 1 TAB PO TID PRN PRN as needed (Reported) Polyethylene Glycol 3350 (Polyethylene Glycol 3350) 17 GM PO DAILY PRN PRN bid ( Reported) FOLLOW UP APPOINTMENT: With Dr Gomes in two weeks Time Spent Total time spent with patient 10 minutes for coordination of care, counseling, and education. DAVON STONE MD Sep 07, 2016 13:08
--- NOTE | 2016-09-07 13:10 | DISCH ---
DISCHARGE INSTRUCTIONS Condition on Discharge Condition on Discharge: Stable Activity After Discharge Activity Instructions for Disc: Activity as tolerated, Avoid exertion Bathing Instructions: Shower-keep dressing dry Lifting Instructions after Dis: No heavy lifting Driving Instructions after Dis: Do not drive (4-5 days) Diet after Discharge Diet after Discharge: Renal Dialysis Wound Incision Care Wound/Incision Care: May get incision wet DAVON STONE MD Sep 07, 2016 13:10
[2016-09-07 15:00] VITALS: BP 128/45
== END 2016-09-07 17:05 | disposition home health service (06) | DRG 981 ==
LOC: OPSVCIP 08-25 05:41 → 1 WEST ICU 08-25 14:15 → 4 NORTH 08-26 16:33
PROVIDERS: ADMIT Surgery; ATTEND Surgery
PROC: 0TB00ZZ Excision of Right Kidney, Open Approach (ICD-10-PCS; principal; 2016-08-25 07:30)
PROC: 5A1D60Z (ICD-10-PCS; 2016-08-26)
DX: R19.00 Intra-abdominal and pelvic swelling, mass and lump, unspecified site (principal); N18.6 End stage renal disease; I42.9 Cardiomyopathy, unspecified; I13.2 Hypertensive heart and chronic kidney disease with heart failure and with stage 5 chronic kidney disease, or end stage renal disease; D64.9 Anemia, unspecified; D72.829 Elevated white blood cell count, unspecified; E11.22 Type 2 diabetes mellitus with diabetic chronic kidney disease; E11.621 Type 2 diabetes mellitus with foot ulcer; E11.649 Type 2 diabetes mellitus with hypoglycemia without coma; I25.10 Atherosclerotic heart disease of native coronary artery without angina pectoris; I27.2 Other secondary pulmonary hypertension; Z96.1 Presence of intraocular lens; G47.30 Sleep apnea, unspecified; I48.2 Chronic atrial fibrillation; I50.9 Heart failure, unspecified; E11.51 Type 2 diabetes mellitus with diabetic peripheral angiopathy without gangrene; J44.9 Chronic obstructive pulmonary disease, unspecified; K21.9 Gastro-esophageal reflux disease without esophagitis; L97.529 Non-pressure chronic ulcer of other part of left foot with unspecified severity; M10.9 Gout, unspecified; Z80.0 Family history of malignant neoplasm of digestive organs; Z80.1 Family history of malignant neoplasm of trachea, bronchus and lung; Z82.3 Family history of stroke; Z83.3 Family history of diabetes mellitus; Z85.038 Personal history of other malignant neoplasm of large intestine; Z86.010 Personal history of colon polyps; Z87.891 Personal history of nicotine dependence; Z90.5 Acquired absence of kidney; Z95.0 Presence of cardiac pacemaker; Z95.1 Presence of aortocoronary bypass graft; Z95.5 Presence of coronary angioplasty implant and graft; Z99.2 Dependence on renal dialysis; Z79.899 Other long term (current) drug therapy
CPT/HCPCS: 36415; 71010; 74000; 74176; 80048; 80053; 80069; 80202; 82947; 83735; 84132; 84145; 85027; 87040; 87071; 87075; 87205; 87641; 87804; 88304; 88307; 88341; 88342; 94250; 94640; 94760; C2617; J0690; J0881; J1100; J1170; J1650; J1815; J2405; J2543; J2704; J2710; J3010; J3370; J3490; J7030; J7040; J7060; J7620; Q9966; 97110; 97116; G0641

== ENCOUNTER 2016-09-30 20:06 | Inpatient (IN) | payer MEDICARE, OTHER ==
[~2016-09-30] VITALS: Ht 167.6 cm; Wt 66.9 kg
[2016-09-30 20:59] LABS: BASO # 0.1 x10^3/uL (0.0-0.2); BASO % 1 % (0-3); EOS % 0 % (0-3); HEMATOCRIT 38.3 % (39.0-53.0); HEMOGLOBIN 12.1 g/dL (13.0-17.5); LYMPH # 0.9 x10^3/uL (1.0-4.8); LYMPH % 6 % (24-48); MEAN CORPUSCULAR HEMOGLOBIN 32 pg (25-35); MEAN CORPUSCULAR HGB CONC 32 g/dL (31-37); MEAN CORPUSCULAR VOLUME 100 fL (79-100); MONO % 6 % (0-9); NEUT % 87 % (31-73); PLATELET COUNT 130 x10^3/uL (140-400); RED BLOOD COUNT 3.82 x10^6/uL (4.30-5.70); RED CELL DISTRIBUTION WIDTH 15.8 % (11.5-14.5); WHITE BLOOD COUNT 15.9 x10^3/uL (4.0-11.0)
[2016-09-30 21:13] LABS: CALCIUM 8.6 mg/dL (8.5-10.1); CREATININE 4.5 mg/dL (0.7-1.3); GFR 13.1; POTASSIUM 4.4 mmol/L (3.5-5.1)
[2016-09-30 21:18] LABS: ALBUMIN 3.1 g/dL (3.4-5.0); DIRECT BILIRUBIN 0.3 mg/dL (0.0-0.2); TOTAL BILIRUBIN 0.8 mg/dL (0.2-1.0); TOTAL PROTEIN 6.8 g/dL (6.4-8.2)
[2016-09-30] MEDS: IV NORMAL SALINE 500ML BAG 500 ML IV ONE (21:45)
[2016-09-30] MEDS ORDERED: ONDANSETRON PF 4 MG/2 ML VIAL. IV ONE (21:45)
[2016-09-30] MEDS: HYDROMORPHONE 2 MG/ML VIAL. IV PRN ×2 (21:50→23:04)
[2016-09-30 21:57] LABS: % EOS 1 % (0-5); ANISOCYTOSIS SLIGHT; PLT ESTIMATE DECREASED (ADEQUATE)
--- NOTE | 2016-09-30 22:07 | RAD ---
PROCEDURE CT of the abdomen and pelvis without contrast HISTORY Severe mid abdominal pain for 3 days recent right nephrectomy with with large mass TECHNIQUE Noncontrast helical CT scanning of the abdomen and pelvis was performed. Without GI contrast, the sensitivity to detect GI tract pathology is decreased. Without IV contrast, the sensitivity to detect organ pathology is decreased. COMPARISON August 31, 2016 FINDINGS The liver is homogeneous in appearance on this noncontrast study and is normal in size. The spleen is homogeneous appearance on this noncontrast study and is normal in size. The pancreas is atrophic. There has been prior cholecystectomy. No adrenal masses are seen. There has been right nephrectomy. The left kidney is atrophic. The urinary bladder is collapsed and not well evaluated. The prostate is only mildly enlarged. The appendix is normal. There is calcification of the aorta and great vessels without aneurysm. No enlarged abdominal or pelvic lymphadenopathy is seen. No free intraperitoneal fluid or free intraperitoneal air is seen. No obstructive bowel pattern or inflammatory changes are seen. There are tiny pleural effusions in the lung bases. No osteolytic process is seen. There are soft tissue hematomas is seen anteriorly in the abdominal wall below the umbilicus bilaterally. IMPRESSION One. Tiny pleural effusions bilaterally. Previously there is a tiny pleural effusion on the left. 2. Right nephrectomy and atrophic left kidney. 3. Bilateral abdominal wall hematoma below the umbilicus the larger is on the right and measures 5.0 by 2.4 centimeters. Electronically signed by: Dimas Antonio MD (Sep 30, 2016 22:06:15)
--- NOTE | 2016-09-30 22:37 | PHYS DOC ---
Past Medical History Past Medical History: Cancer, CHF, COPD, Diabetes-Type II, Heart Disease Additional Past Medical Histor: sleep apnea Past Surgical History: Cancer Surgery, Cholecystectomy, Coronary Bypass Surgery , Pacemaker Alcohol Use: None Drug Use: None Adult General Chief Complaint Chief Complaint: ABDOMINAL PAIN HPI HPI 65-year-old male presenting to the emergency department today with abdominal pain around the umbilicus. His pain is sharp nonradiating moderate intermittent and not associated with vomiting. He has a history of end-stage renal disease and receives dialysis regularly. He was dialyzed this morning. He denies blood in his stool. He denies diarrhea or constipation. Review of systems is negative for chest pain. Negative for headache neck stiffness. Positive for shortness of breath abdominal pain nausea. All other review of systems is negative unless otherwise noted in history of present illness. Review of Systems Review of Systems SEE ABOVE. Current Medications Current Medications Current Medications Medications (Trade) Dose Ordered Sig/Andrew Start Time Stop Time Status Last Admin Dose Admin Hydromorphone HCl (Dilaudid) 0.5 mg PRN Q1HR PRN 09/30/16 21:45 09/30/16 21:50 0.5 MG Ondansetron HCl 4 mg 4 mg 1X ONCE 09/30/16 21:45 09/30/16 21:46 DC 09/30/16 21:45 4 MG Sodium Chloride (Iv Sodium Chloride 0.9% 500ml Bag) 500 ml @ 500 mls/hr 1X ONCE 09/30/16 21:45 09/30/16 22:44 DC Allergies Allergies Allergies Coded Allergies Type Severity Reaction Last Updated Verified adhesive Allergy Severe STERI STRIPS- PEELING SKIN 08/25/16 Yes Physical Exam Physical Exam Constitutional: Well developed, well nourished, no acute distress, non-toxic appearance. HENT: Normocephalic, atraumatic, bilateral external ears normal, oropharynx moist, no oral exudates, nose normal. [] Eyes: PERRLA, EOMI, conjunctiva normal, no discharge. Neck: Normal range of motion, no tenderness, supple, no stridor. [] Cardiovascular:Heart rate regular rhythm, no murmur Lungs & Thorax: Mild crackles bilaterally. Abdomen: The patient's abdomen has a small indurated hematoma of the anterior abdominal wall. Mild tenderness of the abdomen without rebound tenderness or guarding present. Surgical scar is clean dry and intact. Skin: Warm, dry, no erythema, no rash. Back: No tenderness, no CVA tenderness. [] Extremities: No tenderness, no cyanosis, no clubbing, ROM intact, no edema. Neurologic: Alert and oriented X 3, normal motor function, normal sensory function, no focal deficits noted. [] Psychologic: Affect normal, judgement normal, mood normal. [] Current Patient Data Vital Signs Vital Signs Date Time Temp Pulse Resp B/P Pulse Ox O2 Delivery O2 Flow Rate FiO2 09/30/16 21:50 18 98 Nasal Cannula 2.0 09/30/16 20:06 98.4 75 164/75 98.4 Lab Values Laboratory Tests Test 09/30/16 20:40 White Blood Count 15.9x10^3/uL (4.0-11.0) H Red Blood Count 3.82x10^6/uL (4.30-5.70) L Hemoglobin 12.1g/dL (13.0-17.5) L Hematocrit 38.3% (39.0-53.0) L Mean Corpuscular Volume 100fL (79-100) Mean Corpuscular Hemoglobin 32pg (25-35) Mean Corpuscular Hemoglobin Concent 32g/dL (31-37) Red Cell Distribution Width 15.8% (11.5-14.5) H Platelet Count 130x10^3/uL (140-400) L Neutrophils (%) (Auto) 87% (31-73) H Lymphocytes (%) (Auto) 6% (24-48) L Monocytes (%) (Auto) 6% (0-9) Eosinophils (%) (Auto) 0% (0-3) Basophils (%) (Auto) 1% (0-3) Neutrophils # (Auto) 13.8x10^3uL (1.8-7.7) H Lymphocytes # (Auto) 0.9x10^3/uL (1.0-4.8) L Monocytes # (Auto) 1.0x10^3/uL (0.0-1.1) Eosinophils # (Auto) 0.1x10^3/uL (0.0-0.7) Basophils # (Auto) 0.1x10^3/uL (0.0-0.2) Segmented Neutrophils % 87% (35-66) H Band Neutrophils % 3% (0-9) Lymphocytes % 3% (24-48) L Monocytes % 6% (0-10) Eosinophils % 1% (0-5) Platelet Estimate Decreased (ADEQUATE) Anisocytosis Slight Sodium Level 138mmol/L (136-145) Potassium Level 4.4mmol/L (3.5-5.1) Chloride Level 100mmol/L (98-107) Carbon Dioxide Level 23mmol/L (21-32) Anion Gap 15 (6-14) H Blood Urea Nitrogen 23mg/dL (8-26) Creatinine 4.5mg/dL (0.7-1.3) H Estimated GFR (Cockcroft-Gault) 13.1 Glucose Level 187mg/dL (70-99) H Lactic Acid Level 2.5mmol/L (0.4-2.0) H Calcium Level 8.6mg/dL (8.5-10.1) Total Bilirubin 0.8mg/dL (0.2-1.0) Direct Bilirubin 0.3mg/dL (0.0-0.2) H Aspartate Amino Transferase (AST) 15U/L (15-37) Alanine Aminotransferase (ALT) 9U/L (16-63) L Alkaline Phosphatase 141U/L (46-116) H Troponin I Quantitative 0.101ng/mL (0.000-0.055) NA-Ocs-F-Type Natriuretic Peptide > 73539lo/mL (0-124) H Total Protein 6.8g/dL (6.4-8.2) Albumin 3.1g/dL (3.4-5.0) L Lipase 51U/L (73-393) L Laboratory Tests 09/30/16 20:40 Laboratory Tests 09/30/16 20:40 EKG EKG [] Sinus rhythm with a regular rate. [place] is leftward. Intervals show prolonged QRS. Otherwise appropriate repolarization in the anterior lateral leads present. Radiology/Procedures Radiology/Procedures [] Course & Med Decision Making Course & Med Decision Making Pertinent Labs and Imaging studies reviewed. (See chart for details) 65-year-old male presenting to the emergency department today with abdominal pain. Vital signs showed afebrile however he was hypoxic on room air. He is placed on 2 L nasal cannula. He was also hypertensive. Physical exam showed a mildly tender abdomen without rebound tenderness or guarding. Surgical scar was clean dry and intact. He had small hematomas on the anterior abdominal surface. EKG unremarkable. CT the abdomen pelvis shows small tiny pleural effusions, right nephrectomy, and small abdominal hematomas. No peritoneal pathology present. On reexamination the patient's pain had not improved. We tried to titrate him off of his oxygen which we're unable to do. His blood work showed a leukocytosis of 16. Otherwise an anemia of 12.1. Chemistry panel shows elevated troponin elevated proBNP possibly related to his end-stage renal disease. Lactic acidosis present as well. Given the patient's severe abdominal pain hypoxia and lactic acidosis he was admitted to our hospital for further evaluation workup and care. Consult was placed to surgery given his recent nephrectomy. Dragon Disclaimer Dragon Disclaimer This electronic medical record was generated, in whole or in part, using a voice recognition dictation system. Departure Departure Impression: Primary Impression: Periumbilical abdominal pain Additional Impressions: CAD (coronary artery disease) ESRD (end stage renal disease) on dialysis Disposition: ADMITTED INPATIENT Admitting Physician: Mario Calzada Condition: STABLE Referrals: MARIO CALZADA MD (PCP) Problem Qualifiers FLOYD JENSEN MD Sep 30, 2016 22:37
[2016-09-30] MEDS ORDERED: ONDANSETRON PF 4 MG/2 ML VIAL. IV PRN (23:00)
[2016-09-30 23:42] VITALS: BP 157/85
[2016-09-30] MEDS ORDERED: HUM100VI SQ (23:52)
[2016-10-01] MEDS: MORPHINE SULFATE 2 MG/ML DISP.SYRIN. IV PRN ×5 (00:23→20:25)
--- NOTE | 2016-10-01 00:52 | ACF ---
Admission Forms Criteria ABDOMINAL PAIN Clinical Indications for Admission to Inpatient Care (Place 'X' for any and all applicable criteria): Admission is indicated for ANY ONE of the following(1)(2)(3)(4)(5): [X]I. Inpatient admission required rather than observation care (Also use Abdominal Pain: Observation Care, as appropriate) because of ANY ONE of the following: [X]a) Severe pain requiring acute inpatient management [X]b) Identification of etiology/finding that requires inpatient care (eg, aortic dissection, free air) [ ]c) Absent bowel sounds with complete ileus(6) [ ]d) Suspected toxic megacolon [ ]e) Severe electrolyte abnormalities requiring inpatient care [ ]f) High fever or infection requiring inpatient admission as indicated by ANY ONE of following(7)(8): [ ] i) Appropriate outpatient or observational care antimicrobial treatment unavailable, not effective, or not feasible [ ] ii) Documented bacteremia [ ] iii) Temperature > 104.9 degrees F (oral) [ ] iv) T >103.1 F (oral) or < 96.8 F(rectal) that does not respond to all emergency treatment measures [ ]g) Signs of intestinal obstruction [B] [ ]h) Hemodynamic instability [ ]i) IV fluid to replace significant ongoing losses (greater than 3 L/m2 per day) (12)(13) [ ]j) Percutaneous or open drainage (eg, abscess, biliary tract ) procedures [ ]k) Parenteral nutrition regimen that must be implemented on inpatient basis [ ]l) Other condition,treatment or monitoring requiring inpatient admission. [ ]II. Peritoneal signs present [ ]III. Surgery needed that cannot be performed on an ambulatory basis. [ ]IV. Evaluation requires patient to not eat or drink for extended period ( eg, more than 24 hours). [ ]V. Contraindications and/or Inappropriate clinical situations for Observational Care in patients with abdominal pain, when ANY ONE of the following is required: [ ]a) Thorough evaluation is required to prevent catastrophic events due to delays in diagnosing (e.g.Mesenteric ischemia) 1,3 [ ]b) Patient with severe pathology or with chronic symptoms unlikely to improve in the ED stay (3) [ ]. General contraindications and/or Inappropriate clinical situations for Observational Care in patients with abdominal pain, when ANY ONE of the following is required: [ ]a) Prediction of prolongation of LOS based on ANY ONE of the following may be considered as a contraindication for observational care 2, 3, 4, 5, 6, 7, 8, 9, 10, 11 [ ]i) Age > 65 yrs. [ ]ii) Patient arriving by ambulance [ ]iii) Patient with high acuity [ ]iv) Patient requiring vital sign monitoring [ ]v) Patient on IV medication [ ]b) Systolic blood pressures 180mmHg 3,12 [ ]c) Patient with altered mental status including delirium and other alteration of consciousness, (3) [ ]d) Patient whose discharge disposition will be to a [facility] home or rehabilitation home should not be managed in Emergency Department Observation Unit. CMS rule requires 3 days hospital stay before such placement.3,13 [ ]e) Patient with failure to thrive due to broad array of etiologies 3,16,17 [ ]f) Inability to ambulate 3,14 Extended stay beyond goal length of stay may be needed for(2)(3): [ ]a) Persistent abdominal pain with suspected intra-abdominal process [ ]b) Diagnosed condition requiring continued stay (e.g., pancreatitis, complicated diverticulitis) [ ]c) Surgery (e.g., colectomy) The original [facility] content created by [employer] has been revised. The portions of the content which have been revised are identified through the use of italic text or in bold, and [facility] has neither reviewed nor approved the modified material.All other unmodified content is copyright [facility]. Please see references footnoted in the original [facility] edition 2016 Admission Criteria Met?: Yes BRUNO HARTLEY Oct 01, 2016 00:52
[2016-10-01] MEDS: HYDROMORPHONE 2 MG/ML VIAL. IV PRN ×4 (01:11→11:17)
[2016-10-01 03:00] VITALS: BP 157/80
--- NOTE | 2016-10-01 06:10 | EKG ---
[facility] [address] [place] [address] Test Date: 2016-09-30 Test Time: 20:36:52 Pat Name: MELIDA YANG Department: Room: [facility] Gender: M On Site Property Manager: [facility] ER : 1950 Requested By: FLOYD JENSEN Order Number: [id number] Reading MD: Cecilia Ontiveros Measurements Intervals [place] Rate: 77 P: HI: QRS: -62 QRSD: 126 T: 108 QT: 360 QTc: 409 Interpretive Statements ATRIAL FIBRILLATION ABNORMAL LEFT AXIS DEVIATION NON SPECIFIC INTRAVENTRICULAR BLOCK ABNORMAL ECG Electronically Signed On 10-04-2016 19:58:05 PERSONAL CARE HOME ADMINISTRATOR by Cecilia Ontiveros
[2016-10-01 07:15] VITALS: BP 157/88
[2016-10-01] MEDS ORDERED: NITROGLYCERIN SUBLINGUAL 0.4 MG BOTTLE OF 25. SL PRN (08:00)
[2016-10-01] MEDS ORDERED: OXYCODONE/APAP 7.5/325 TABLET. PO PRN (08:00)
--- NOTE | 2016-10-01 08:06 | PDOC ---
Provider Note Provider Note sleeping, dictated, surg/cv consult re ? source of painnausea [id number] SANDEEP YANG MD Oct 01, 2016 08:06
[2016-10-01] MEDS ORDERED: DEXTROSE 50% 25 GM / 50ML DISP.SYRIN. IV PRN (08:15)
[2016-10-01 08:19] LABS: BASO # 0.1 x10^3/uL (0.0-0.2); BASO % 0 % (0-3); EOS % 0 % (0-3); HEMATOCRIT 41.5 % (39.0-53.0); HEMOGLOBIN 13.4 g/dL (13.0-17.5); LYMPH # 0.6 x10^3/uL (1.0-4.8); LYMPH % 3 % (24-48); MEAN CORPUSCULAR HEMOGLOBIN 32 pg (25-35); MEAN CORPUSCULAR HGB CONC 32 g/dL (31-37); MEAN CORPUSCULAR VOLUME 98 fL (79-100); MONO % 7 % (0-9); NEUT % 90 % (31-73); PLATELET COUNT 169 x10^3/uL (140-400); RED BLOOD COUNT 4.22 x10^6/uL (4.30-5.70); RED CELL DISTRIBUTION WIDTH 15.9 % (11.5-14.5); WHITE BLOOD COUNT 21.3 x10^3/uL (4.0-11.0)
--- NOTE | 2016-10-01 08:28 | HP ---
ADMIT DATE: 10/01/2016 CHIEF COMPLAINT: Abdominal pain. HISTORY OF PRESENT ILLNESS: A 65-year-old white male renal dialysis patient who had right nephrectomy about 4-6 weeks ago and the pathology report is still pending. The possibility of tumor was in question. He has had increasing nausea, vomiting and diffuse abdominal pain. Laboratory studies have been unrevealing and the CT scan last night did not show anything unusual except for some hematoma change on the abdominal wall. He is afebrile, sleeping at this time. PAST MEDICAL HISTORY: Well documented in the old record. He is on dialysis and his insulin doses have been regarding weight loss. SOCIAL HISTORY: Unremarkable. REVIEW OF SYSTEMS: No other specific complaints. OBJECTIVE: ENT: All within normal limits. NECK: No masses, nodes or bruits. LUNGS: Clear. CARDIOVASCULAR: Regular rate. No irregular beat or murmur. ABDOMEN: Diffusely tender, no guarding, masses or rebound. Bowel sounds are normal. EXTREMITIES: Poor pedal and radial pulses. SKIN: Turgor decreased, muscle mass decreased. NEUROLOGIC: Physiologic. ASSESSMENT: Persistent abdominal pain and nausea status post right nephrectomy with pathology report pending regarding the source of the abdominal mass that raised the need for resection. PLAN: Consultation is ordered and further evaluation. SANDEEP YANG MD DR: NIKOLAI/macho JOB#: [id number] / [id number]
[2016-10-01 08:37] LABS: CALCIUM 8.7 mg/dL (8.5-10.1); CREATININE 5.1 mg/dL (0.7-1.3); GFR 11.4; POTASSIUM 4.9 mmol/L (3.5-5.1)
--- NOTE | 2016-10-01 08:43 | PDOC2 ---
TARYNLESLEE L OUTSOLE SKIVER 10/01/16 0843: CONSULT Date of Consult Date of Consult DATE: 10/01/16 TIME: 08:34 Reason for Consult Reason for Consult: post op nausea, pain Referring Physician Referring Physician: ER Identification/Chief Complaint Chief Complaint abdominal pain Source Source: Chart review, Patient History of Present Illness Reason for Visit: History of En bloc resection of right retroperitoneal mass including right kidney, excisional biopsy of small bowel mesenteric mass and colon mass on 2016--path reviewed, final path with perinephric lipoma Worsening abdominal pain, lower abdomen, associated nausea and intermittent emesis. denies constipation or diarrhea, had dialysis yesterday Past Medical History Cardiovascular: AFIB, CAD, CHF, HTN, Valve insufficiency, Pulmonary hypertension Heme/Onc: Cancer, Iron deficiency Anemia Musculoskeletal: Muscle atrophy, Weakness Renal/: Chronic renal failure Past Surgical History Past Surgical History: Cholecystectomy, Cataract Removal, Colon Resection, Other Family History Family History: Cancer Social History Quit ALCOHOL: none Drugs: None Lives: with Family Current Problem List Problem List Problems Medical Problems: (1) CAD (coronary artery disease) Status: Acute (2) ESRD (end stage renal disease) on dialysis Status: Acute (3) Periumbilical abdominal pain Status: Acute Current Medications Current Medications Current Medications Hydromorphone HCl (Dilaudid) 0.5 mg PRN Q1HR PRN IV SEVERE PAIN Last administered on 10/01/16 01:11; Start 09/30/16 at 21:45; Stop 10/01/16 at 01:11 ; Status DC Ondansetron HCl 4 mg 4 mg 1X ONCE IV Last administered on 09/30/16 21:45; Start 09/30/16 at 21:45; Stop 09/30/16 at 21:46; Status DC Sodium Chloride (Iv Sodium Chloride 0.9% 500ml Bag) 500 ml @ 500 mls/hr 1X ONCE IV ; Start 09/30/16 at 21:45; Stop 09/30/16 at 23:05; Status DC Ondansetron HCl (Zofran) 4 mg PRN Q8HRS PRN IV NAUSEA/VOMITING; Start 09/30/16 at 23:00; Stop 10/01/16 at 22:59 Morphine Sulfate 2 mg PRN Q2HR PRN IV PAIN Last administered on 10/01/16 04:31 ; Start 09/30/16 at 23:00; Stop 10/01/16 at 22:59 Hydromorphone HCl (Dilaudid) 0.5 mg PRN Q4HRS PRN IV PAIN Last administered on 10/01/16t 06:34; Start 10/01/16 at 01:30 Calcium Acetate (Phoslo) 667 mg TIDWMEALS PO ; Start 10/01/16 at 08:30 Famotidine (Pepcid) 20 mg QHS PO ; Start 10/01/16 at 21:00 Gabapentin (Neurontin) 100 mg BID PO ; Start 10/01/16 at 09:00 Nitroglycerin (Nitrostat) 0.4 mg PRN Q1HR PRN SL CHEST PAIN; Start 10/01/16 at 08:00 Oxycodone/ Acetaminophen (Percocet 7.5/ 325) 1 tab TID PRN PO PAIN; Start 10/01 at 08:00 Polyethylene Glycol (miraLAX PACKET) 17 gm PRN DAILY PRN PO CONSTIPATION; Start 10/01/16 at 09:00 Ranolazine (Ranexa) 500 mg DAILY PO ; Start 10/01/16 at 09:00 Tamsulosin HCl (Flomax) 0.4 mg HS PO ; Start 10/01/16 at 21:00 Insulin Aspart (Novolog) 0-7 UNITS TIDWMEALS SQ ; Start 10/01/16 at 12:00 Dextrose 12.5 gm PRN Q15MIN PRN IV SEE COMMENTS; Start 10/01/16 at 08:15 Active Scripts Active Reported Humulin 70-30 Vial (Hum Insulin Nph/Reg Insulin Hm) 100 Unit/1 Ml Vial 20 Unit SQ BIDWMEALS Gabapentin 100 Mg Capsule 100 Mg PO BID Ranexa (Ranolazine) 500 Mg Tab.er.12h 1 Tab PO DAILY Phoslo (Calcium Acetate) 667 Mg Capsule 667 Mg PO TIDWMEALS Polyethylene Glycol 3350 255 Gm Powder 17 Gm PO DAILY PRN Anoro Ellipta 62.5-25 Mcg Inh (Umeclidinium Brm/Vilanterol Tr) 1 Each Disk.w.dev 1 Each IH DAILY Clopidogrel (Clopidogrel Bisulfate) 75 Mg Tablet 1 Tab PO DAILY Percocet 7.5-325 Mg Tablet (Oxycodone/Acetaminophen) 1 Each Tablet 1 Tab PO TID PRN Dialyvite 800 Tablet (Folic Acid/Vitamin B Comp W-C) 0.8 Mg Tablet 0.8 Mg PO DAILY NITROGLYCERIN SubLingual (Nitroglycerin) 0.4 Mg Tab.subl 0.4 Mg SL PRN Allopurinol 300 Mg Tablet 300 Mg PO DAILY Pepcid (Famotidine) 20 Mg Tablet 20 Mg PO QHS Lanoxin (Digoxin) 125 Mcg Tablet 125 Mcg PO DAILY Flomax (Tamsulosin Hcl) 0.4 Mg Cap.er.24h 0.4 Mg PO HS Aspirin 81 Mg Tab.chew 81 Mg PO DAILY Allergies Allergies: Coded Allergies: adhesive (Verified Allergy, Severe, STERI STRIPS- PEELING SKIN, 08/25/16) STERI STRIPS ROS General: YES: Chills, Other (feverish) PSYCHOLOGICAL ROS: No: Anxiety, Depression Eyes: No Blurry vision, No Double vision HEENT: No: Heacaches, Sore Throat Hematological and Lymphatic: YES: Bleeding Problems, Brusing Respiratory: YES: Shortness of breath, No: Cough Cardiovascular: No Chest Pain, No Palpitations Gastrointestinal: Yes Other (see hpi) Genitourinary: No Dysuria, No Hematuria Musculoskeletal: No Joint Pain, No Muscle Pain Neurological: Yes Numbness/Tingling, No Confusion Skin: No Pruritus, No Rash Physical Exam General: Alert, Oriented X3, Cooperative, No acute distress HEENT: Atraumatic, PERRLA, Mucous membr. moist/pink Lungs: Clear to auscultation, Normal air movement Heart: Regular rate, Normal S1, Normal S2, No murmurs Abdomen: Soft, Other (healing right lower abdomen scar, palpable mass to right and left abdomen under umbilicus, generalized tenderness over abdomen, no guarding or rebound ) Extremities: No clubbing, No cyanosis Skin: No rashes, No breakdown Neuro: Normal gait, Normal speech, Normal tone, Sensation intact, Reflexes 2+ Psych/Mental Status: Mental status NL, Mood NL MUSCULOSKELETAL: No deformity, No swelling Vitals VITALS Vital Signs Date Time Temp Pulse Resp B/P Pulse Ox O2 Delivery O2 Flow Rate FiO2 10/01/16 07:15 98.2 96 20 157/88 95 Nasal Cannula 2.0 98.2 Labs Labs Laboratory Tests Test 09/30/16 20:40 10/01/16 00:10 10/01/16 01:45 10/01/16 07:33 White Blood Count 15.9x10^3/uL (4.0-11.0) Red Blood Count 3.82x10^6/uL (4.30-5.70) Hemoglobin 12.1g/dL (13.0-17.5) Hematocrit 38.3% (39.0-53.0) Mean Corpuscular Volume 100fL (79-100) Mean Corpuscular Hemoglobin 32pg (25-35) Mean Corpuscular Hemoglobin Concent 32g/dL (31-37) Red Cell Distribution Width 15.8% (11.5-14.5) Platelet Count 130x10^3/uL (140-400) Neutrophils (%) (Auto) 87% (31-73) Lymphocytes (%) (Auto) 6% (24-48) Monocytes (%) (Auto) 6% (0-9) Eosinophils (%) (Auto) 0% (0-3) Basophils (%) (Auto) 1% (0-3) Neutrophils # (Auto) 13.8x10^3uL (1.8-7.7) Lymphocytes # (Auto) 0.9x10^3/uL (1.0-4.8) Monocytes # (Auto) 1.0x10^3/uL (0.0-1.1) Eosinophils # (Auto) 0.1x10^3/uL (0.0-0.7) Basophils # (Auto) 0.1x10^3/uL (0.0-0.2) Segmented Neutrophils % 87% (35-66) Band Neutrophils % 3% (0-9) Lymphocytes % 3% (24-48) Monocytes % 6% (0-10) Eosinophils % 1% (0-5) Platelet Estimate Decreased (ADEQUATE) Anisocytosis Slight Sodium Level 138mmol/L (136-145) Potassium Level 4.4mmol/L (3.5-5.1) Chloride Level 100mmol/L (98-107) Carbon Dioxide Level 23mmol/L (21-32) Anion Gap 15 (6-14) Blood Urea Nitrogen 23mg/dL (8-26) Creatinine 4.5mg/dL (0.7-1.3) Estimated GFR (Cockcroft-Gault) 13.1 Glucose Level 187mg/dL (70-99) Lactic Acid Level 2.5mmol/L (0.4-2.0) 4.0mmol/L (0.4-2.0) Calcium Level 8.6mg/dL (8.5-10.1) Total Bilirubin 0.8mg/dL (0.2-1.0) Direct Bilirubin 0.3mg/dL (0.0-0.2) Aspartate Amino Transf (AST/SGOT) 15U/L (15-37) Alanine Aminotransferase (ALT/SGPT) 9U/L (16-63) Alkaline Phosphatase 141U/L (46-116) Troponin I Quantitative 0.101ng/mL (0.000-0.055) 0.100ng/mL (0.000-0.055) QU-Yai-H-Type Natriuretic Peptide > 08057vs/mL (0-124) Total Protein 6.8g/dL (6.4-8.2) Albumin 3.1g/dL (3.4-5.0) Lipase 51U/L (73-393) Glucose (Fingerstick) 138mg/dL (70-99) 185mg/dL (70-99) Test 10/01/16 07:45 White Blood Count 21.3x10^3/uL (4.0-11.0) Red Blood Count 4.22x10^6/uL (4.30-5.70) Hemoglobin 13.4g/dL (13.0-17.5) Hematocrit 41.5% (39.0-53.0) Mean Corpuscular Volume 98fL (79-100) Mean Corpuscular Hemoglobin 32pg (25-35) Mean Corpuscular Hemoglobin Concent 32g/dL (31-37) Red Cell Distribution Width 15.9% (11.5-14.5) Platelet Count 169x10^3/uL (140-400) Neutrophils (%) (Auto) 90% (31-73) Lymphocytes (%) (Auto) 3% (24-48) Monocytes (%) (Auto) 7% (0-9) Eosinophils (%) (Auto) 0% (0-3) Basophils (%) (Auto) 0% (0-3) Neutrophils # (Auto) 19.1x10^3uL (1.8-7.7) Lymphocytes # (Auto) 0.6x10^3/uL (1.0-4.8) Monocytes # (Auto) 1.5x10^3/uL (0.0-1.1) Eosinophils # (Auto) 0.0x10^3/uL (0.0-0.7) Basophils # (Auto) 0.1x10^3/uL (0.0-0.2) Laboratory Tests Test 09/30/16 20:40 10/01/16 00:10 10/01/16 01:45 10/01/16 07:33 White Blood Count 15.9x10^3/uL (4.0-11.0) Red Blood Count 3.82x10^6/uL (4.30-5.70) Hemoglobin 12.1g/dL (13.0-17.5) Hematocrit 38.3% (39.0-53.0) Mean Corpuscular Volume 100fL (79-100) Mean Corpuscular Hemoglobin 32pg (25-35) Mean Corpuscular Hemoglobin Concent 32g/dL (31-37) Red Cell Distribution Width 15.8% (11.5-14.5) Platelet Count 130x10^3/uL (140-400) Neutrophils (%) (Auto) 87% (31-73) Lymphocytes (%) (Auto) 6% (24-48) Monocytes (%) (Auto) 6% (0-9) Eosinophils (%) (Auto) 0% (0-3) Basophils (%) (Auto) 1% (0-3) Neutrophils # (Auto) 13.8x10^3uL (1.8-7.7) Lymphocytes # (Auto) 0.9x10^3/uL (1.0-4.8) Monocytes # (Auto) 1.0x10^3/uL (0.0-1.1) Eosinophils # (Auto) 0.1x10^3/uL (0.0-0.7) Basophils # (Auto) 0.1x10^3/uL (0.0-0.2) Segmented Neutrophils % 87% (35-66) Band Neutrophils % 3% (0-9) Lymphocytes % 3% (24-48) Monocytes % 6% (0-10) Eosinophils % 1% (0-5) Platelet Estimate Decreased (ADEQUATE) Anisocytosis Slight Sodium Level 138mmol/L (136-145) Potassium Level 4.4mmol/L (3.5-5.1) Chloride Level 100mmol/L (98-107) Carbon Dioxide Level 23mmol/L (21-32) Anion Gap 15 (6-14) Blood Urea Nitrogen 23mg/dL (8-26) Creatinine 4.5mg/dL (0.7-1.3) Estimated GFR (Cockcroft-Gault) 13.1 Glucose Level 187mg/dL (70-99) Lactic Acid Level 2.5mmol/L (0.4-2.0) 4.0mmol/L (0.4-2.0) Calcium Level 8.6mg/dL (8.5-10.1) Total Bilirubin 0.8mg/dL (0.2-1.0) Direct Bilirubin 0.3mg/dL (0.0-0.2) Aspartate Amino Transf (AST/SGOT) 15U/L (15-37) Alanine Aminotransferase (ALT/SGPT) 9U/L (16-63) Alkaline Phosphatase 141U/L (46-116) Troponin I Quantitative 0.101ng/mL (0.000-0.055) 0.100ng/mL (0.000-0.055) AL-Zao-V-Type Natriuretic Peptide > 52818tk/mL (0-124) Total Protein 6.8g/dL (6.4-8.2) Albumin 3.1g/dL (3.4-5.0) Lipase 51U/L (73-393) Glucose (Fingerstick) 138mg/dL (70-99) 185mg/dL (70-99) Test 10/01/16 07:45 White Blood Count 21.3x10^3/uL (4.0-11.0) Red Blood Count 4.22x10^6/uL (4.30-5.70) Hemoglobin 13.4g/dL (13.0-17.5) Hematocrit 41.5% (39.0-53.0) Mean Corpuscular Volume 98fL (79-100) Mean Corpuscular Hemoglobin 32pg (25-35) Mean Corpuscular Hemoglobin Concent 32g/dL (31-37) Red Cell Distribution Width 15.9% (11.5-14.5) Platelet Count 169x10^3/uL (140-400) Neutrophils (%) (Auto) 90% (31-73) Lymphocytes (%) (Auto) 3% (24-48) Monocytes (%) (Auto) 7% (0-9) Eosinophils (%) (Auto) 0% (0-3) Basophils (%) (Auto) 0% (0-3) Neutrophils # (Auto) 19.1x10^3uL (1.8-7.7) Lymphocytes # (Auto) 0.6x10^3/uL (1.0-4.8) Monocytes # (Auto) 1.5x10^3/uL (0.0-1.1) Eosinophils # (Auto) 0.0x10^3/uL (0.0-0.7) Basophils # (Auto) 0.1x10^3/uL (0.0-0.2) Assessment/Plan Assessment/Plan S/p nephrectomy, ESRD on dialysis path with perinephric lipoma significant comorbidities including CHF, COPD, DM, CAD, on plavix bilateral abdominal hematomas leukocytosis, lactic acidosis, abdominal pain, n/v renal consults, hold plavix will have Dr Gomes FU on pt BEATA GOMES MD 10/01/16 0579: CONSULT Allergies Allergies: Coded Allergies: adhesive (Verified Allergy, Severe, STERI STRIPS- PEELING SKIN, 08/25/16) STERI STRIPS Assessment/Plan Assessment/Plan Pt seen and examined. Agree with Ms. Mcintosh's note Pt with c/o chest pain and nausea abd soft, Nd, NTTP imaging non revealing will ask GI to eval Thanks for consult! LESLEE MCINTOSH APRN Oct 01, 2016 08:43 BEATA GOMES MD Oct 01, 2016 17:37
[2016-10-01] MEDS: CALCIUM ACETATE 667 MG CAPSULE PO SCH ×3 (08:54→17:08)
[2016-10-01] MEDS: RANOLAZINE 500 MG TAB.ER.12H PO SCH (09:00)
[2016-10-01] MEDS: GABAPENTIN 100 MG CAPSULE. PO SCH ×2 (09:00→20:25)
[2016-10-01] MEDS ORDERED: POLYETHYLENE GLYCOL 3350 17 GM PACKET. PO PRN (09:00)
[2016-10-01] MEDS ORDERED: MAGNESIUM SULFATE 2GM 50 ML IV PRN (09:30)
--- NOTE | 2016-10-01 09:36 | PDOC2 ---
CONSULT Date of Consult Date of Consult DATE: 10/01/16 TIME: 09:15 Reason for Consult Reason for Consult: ESRD MWF Referring Physician Referring Physician: Dr Vega menendez Identification/Chief Complaint Chief Complaint Abd Pain Problems: Source Source: Chart review, Patient History of Present Illness Reason for Visit: as dictated Past Medical History Cardiovascular: AFIB, CAD, CHF, HTN, Valve insufficiency, Pulmonary hypertension Heme/Onc: Cancer, Iron deficiency Anemia Musculoskeletal: Muscle atrophy, Weakness Renal/: Chronic renal failure Past Surgical History Past Surgical History: Cholecystectomy, Cataract Removal, Colon Resection, Other Family History Family History: Cancer Social History Quit ALCOHOL: none Drugs: None Lives: with Family Current Problem List Problem List Problems Medical Problems: (1) CAD (coronary artery disease) Status: Acute (2) ESRD (end stage renal disease) on dialysis Status: Acute (3) Periumbilical abdominal pain Status: Acute Current Medications Current Medications Current Medications Hydromorphone HCl (Dilaudid) 0.5 mg PRN Q1HR PRN IV SEVERE PAIN Last administered on 10/01/16 01:11; Start 09/30/16 at 21:45; Stop 10/01/16 at 01:11 ; Status DC Ondansetron HCl 4 mg 4 mg 1X ONCE IV Last administered on 09/30/16 21:45; Start 09/30/16 at 21:45; Stop 09/30/16 at 21:46; Status DC Sodium Chloride (Iv Sodium Chloride 0.9% 500ml Bag) 500 ml @ 500 mls/hr 1X ONCE IV ; Start 09/30/16 at 21:45; Stop 09/30/16 at 23:05; Status DC Ondansetron HCl (Zofran) 4 mg PRN Q8HRS PRN IV NAUSEA/VOMITING; Start 09/30/16 at 23:00; Stop 10/01/16 at 22:59 Morphine Sulfate 2 mg PRN Q2HR PRN IV PAIN Last administered on 10/01/16 08:55 ; Start 09/30/16 at 23:00; Stop 10/01/16 at 22:59 Hydromorphone HCl (Dilaudid) 0.5 mg PRN Q4HRS PRN IV PAIN Last administered on 10/01/16 06:34; Start 10/01/16 at 01:30 Calcium Acetate (Phoslo) 667 mg TIDWMEALS PO Last administered on 10/01/16 08: 54; Start 10/01/16 at 08:30 Famotidine (Pepcid) 20 mg QHS PO ; Start 10/01/16 at 21:00 Gabapentin (Neurontin) 100 mg BID PO Last administered on 10/01/16 09:00; Start 10/01/16 at 09:00 Nitroglycerin (Nitrostat) 0.4 mg PRN Q1HR PRN SL CHEST PAIN; Start 10/01/16 at 08:00 Oxycodone/ Acetaminophen (Percocet 7.5/ 325) 1 tab TID PRN PO PAIN; Start 10/01 at 08:00 Polyethylene Glycol (miraLAX PACKET) 17 gm PRN DAILY PRN PO CONSTIPATION; Start 10/01/16 at 09:00 Ranolazine (Ranexa) 500 mg DAILY PO Last administered on 10/01/16 09:00; Start 10/01/16 at 09:00 Tamsulosin HCl (Flomax) 0.4 mg HS PO ; Start 10/01/16 at 21:00 Insulin Aspart (Novolog) 0-7 UNITS TIDWMEALS SQ ; Start 10/01/16 at 12:00 Dextrose 12.5 gm PRN Q15MIN PRN IV SEE COMMENTS; Start 10/01/16 at 08:15 Active Scripts Active Reported Humulin 70-30 Vial (Hum Insulin Nph/Reg Insulin Hm) 100 Unit/1 Ml Vial 20 Unit SQ BIDWMEALS Gabapentin 100 Mg Capsule 100 Mg PO BID Ranexa (Ranolazine) 500 Mg Tab.er.12h 1 Tab PO DAILY Phoslo (Calcium Acetate) 667 Mg Capsule 667 Mg PO TIDWMEALS Polyethylene Glycol 3350 255 Gm Powder 17 Gm PO DAILY PRN Anoro Ellipta 62.5-25 Mcg Inh (Umeclidinium Brm/Vilanterol Tr) 1 Each Disk.w.dev 1 Each IH DAILY Clopidogrel (Clopidogrel Bisulfate) 75 Mg Tablet 1 Tab PO DAILY Percocet 7.5-325 Mg Tablet (Oxycodone/Acetaminophen) 1 Each Tablet 1 Tab PO TID PRN Dialyvite 800 Tablet (Folic Acid/Vitamin B Comp W-C) 0.8 Mg Tablet 0.8 Mg PO DAILY NITROGLYCERIN SubLingual (Nitroglycerin) 0.4 Mg Tab.subl 0.4 Mg SL PRN Allopurinol 300 Mg Tablet 300 Mg PO DAILY Pepcid (Famotidine) 20 Mg Tablet 20 Mg PO QHS Lanoxin (Digoxin) 125 Mcg Tablet 125 Mcg PO DAILY Flomax (Tamsulosin Hcl) 0.4 Mg Cap.er.24h 0.4 Mg PO HS Aspirin 81 Mg Tab.chew 81 Mg PO DAILY Allergies Allergies: Coded Allergies: adhesive (Verified Allergy, Severe, STERI STRIPS- PEELING SKIN, 08/25/16) STERI STRIPS ROS Review of System GEN: ? subj Fevers no Chills EYES: no new Visual Complaints ENT: no EN Drainage no Hearing deficiets CVS: no Orthopnea ? Pleuritic Left sided CP RESP: no SOB min MEJIA GI: min Nausea no Vomiting + Abd Pain : no Dysuria no Urgency HEME: no easy bruising no Palp Ly Nodes NEURO no Focal Weakness no Sz PSYCH: no Suicidal Ideation min Depression SKIN: no Rashes ENDO: no Polyuria or Polydipsia no Hot/Cold Intolerance MU SK: ch Arthraigia no Myalgia Physical Exam Physical Exam General Appearance: Awake somewhat sleepy though but easily arousable; Alert Oriented x 2-3 In no Distress Eyes: VIsion Unchanged Conjunctiva Normal EN: No EN Drainage Mucous Memb. moist Neck: no JVD no JVP Supple no Thyromegaly CVS: S1 S2 + Murmur No Gallop No Rub no Edema Resp: no Rales no Rhonchi no Acc. Muscle use GI: BS +ve NO Bruit +Tender LUQ Non Distended; Small paxton- Umbilical hematoma (as described) and RUQ Scar (healed) : no CVA tenderness; no Suprapubic Tenderness SKIN: no Rashes Breast Exam deferred Mu.Sk: Adequate ROM min Muscle Atrophy Heme: Unable to palpate Obvious LAD no palp Splenomegaly (TTP in LUQ) NEURO: Good Strength and Tone Cranial Nerves II - XII grossly intact Psych: ? Depressed no Active hallucination Vital Signs Vital Signs Date Time Temp Pulse Resp B/P Pulse Ox O2 Delivery O2 Flow Rate FiO2 10/01/16 09:00 96 157/88 10/01/16 08:55 Nasal Cannula 2.0 10/01/16 07:15 98.2 20 95 98.2 Assessment & Plan ESRD: Current FLuid and E-lyte status does not necessitate emergent need for Dialysis. Will re-evaluate for Dialysis in am and continue on MWF schedule. Anemia: nno Epogen for hgb > 10; Transfuse with next HD as needed. HTN: Current BP meds reviewed. See orders for changes. WAG with ^ Lactic acid - follow lactate - ? source. IVF x 1 L Abd pain in LUQ - R/o isch gut ? Pleuritic CP - check CTA and r/o PE; +ve trops noted - ? NSTEMI ? NSTEMI - Cards consulted ? Pericardial Rub vs Pleural - ECHO NENITA / Bone & Mineral: follow phos fornow Discussed Plan of Care and prognosis etc. at length with family. Labs Labs Laboratory Tests Test 09/30/16 20:40 10/01/16 00:10 10/01/16 01:45 10/01/16 07:33 White Blood Count 15.9x10^3/uL (4.0-11.0) Red Blood Count 3.82x10^6/uL (4.30-5.70) Hemoglobin 12.1g/dL (13.0-17.5) Hematocrit 38.3% (39.0-53.0) Mean Corpuscular Volume 100fL (79-100) Mean Corpuscular Hemoglobin 32pg (25-35) Mean Corpuscular Hemoglobin Concent 32g/dL (31-37) Red Cell Distribution Width 15.8% (11.5-14.5) Platelet Count 130x10^3/uL (140-400) Neutrophils (%) (Auto) 87% (31-73) Lymphocytes (%) (Auto) 6% (24-48) Monocytes (%) (Auto) 6% (0-9) Eosinophils (%) (Auto) 0% (0-3) Basophils (%) (Auto) 1% (0-3) Neutrophils # (Auto) 13.8x10^3uL (1.8-7.7) Lymphocytes # (Auto) 0.9x10^3/uL (1.0-4.8) Monocytes # (Auto) 1.0x10^3/uL (0.0-1.1) Eosinophils # (Auto) 0.1x10^3/uL (0.0-0.7) Basophils # (Auto) 0.1x10^3/uL (0.0-0.2) Segmented Neutrophils % 87% (35-66) Band Neutrophils % 3% (0-9) Lymphocytes % 3% (24-48) Monocytes % 6% (0-10) Eosinophils % 1% (0-5) Platelet Estimate Decreased (ADEQUATE) Anisocytosis Slight Sodium Level 138mmol/L (136-145) Potassium Level 4.4mmol/L (3.5-5.1) Chloride Level 100mmol/L (98-107) Carbon Dioxide Level 23mmol/L (21-32) Anion Gap 15 (6-14) Blood Urea Nitrogen 23mg/dL (8-26) Creatinine 4.5mg/dL (0.7-1.3) Estimated GFR (Cockcroft-Gault) 13.1 Glucose Level 187mg/dL (70-99) Lactic Acid Level 2.5mmol/L (0.4-2.0) 4.0mmol/L (0.4-2.0) Calcium Level 8.6mg/dL (8.5-10.1) Total Bilirubin 0.8mg/dL (0.2-1.0) Direct Bilirubin 0.3mg/dL (0.0-0.2) Aspartate Amino Transf (AST/SGOT) 15U/L (15-37) Alanine Aminotransferase (ALT/SGPT) 9U/L (16-63) Alkaline Phosphatase 141U/L (46-116) Troponin I Quantitative 0.101ng/mL (0.000-0.055) 0.100ng/mL (0.000-0.055) OT-Hjw-O-Type Natriuretic Peptide > 64734iy/mL (0-124) Total Protein 6.8g/dL (6.4-8.2) Albumin 3.1g/dL (3.4-5.0) Lipase 51U/L (73-393) Glucose (Fingerstick) 138mg/dL (70-99) 185mg/dL (70-99) Test 10/01/16 07:45 White Blood Count 21.3x10^3/uL (4.0-11.0) Red Blood Count 4.22x10^6/uL (4.30-5.70) Hemoglobin 13.4g/dL (13.0-17.5) Hematocrit 41.5% (39.0-53.0) Mean Corpuscular Volume 98fL (79-100) Mean Corpuscular Hemoglobin 32pg (25-35) Mean Corpuscular Hemoglobin Concent 32g/dL (31-37) Red Cell Distribution Width 15.9% (11.5-14.5) Platelet Count 169x10^3/uL (140-400) Neutrophils (%) (Auto) 90% (31-73) Lymphocytes (%) (Auto) 3% (24-48) Monocytes (%) (Auto) 7% (0-9) Eosinophils (%) (Auto) 0% (0-3) Basophils (%) (Auto) 0% (0-3) Neutrophils # (Auto) 19.1x10^3uL (1.8-7.7) Lymphocytes # (Auto) 0.6x10^3/uL (1.0-4.8) Monocytes # (Auto) 1.5x10^3/uL (0.0-1.1) Eosinophils # (Auto) 0.0x10^3/uL (0.0-0.7) Basophils # (Auto) 0.1x10^3/uL (0.0-0.2) Sodium Level 141mmol/L (136-145) Potassium Level 4.9mmol/L (3.5-5.1) Chloride Level 100mmol/L (98-107) Carbon Dioxide Level 23mmol/L (21-32) Anion Gap 18 (6-14) Blood Urea Nitrogen 32mg/dL (8-26) Creatinine 5.1mg/dL (0.7-1.3) Estimated GFR (Cockcroft-Gault) 11.4 Glucose Level 193mg/dL (70-99) Calcium Level 8.7mg/dL (8.5-10.1) Troponin I Quantitative 0.166ng/mL (0.000-0.055) Laboratory Tests Test 09/30/16 20:40 10/01/16 00:10 10/01/16 01:45 10/01/16 07:33 White Blood Count 15.9x10^3/uL (4.0-11.0) Red Blood Count 3.82x10^6/uL (4.30-5.70) Hemoglobin 12.1g/dL (13.0-17.5) Hematocrit 38.3% (39.0-53.0) Mean Corpuscular Volume 100fL (79-100) Mean Corpuscular Hemoglobin 32pg (25-35) Mean Corpuscular Hemoglobin Concent 32g/dL (31-37) Red Cell Distribution Width 15.8% (11.5-14.5) Platelet Count 130x10^3/uL (140-400) Neutrophils (%) (Auto) 87% (31-73) Lymphocytes (%) (Auto) 6% (24-48) Monocytes (%) (Auto) 6% (0-9) Eosinophils (%) (Auto) 0% (0-3) Basophils (%) (Auto) 1% (0-3) Neutrophils # (Auto) 13.8x10^3uL (1.8-7.7) Lymphocytes # (Auto) 0.9x10^3/uL (1.0-4.8) Monocytes # (Auto) 1.0x10^3/uL (0.0-1.1) Eosinophils # (Auto) 0.1x10^3/uL (0.0-0.7) Basophils # (Auto) 0.1x10^3/uL (0.0-0.2) Segmented Neutrophils % 87% (35-66) Band Neutrophils % 3% (0-9) Lymphocytes % 3% (24-48) Monocytes % 6% (0-10) Eosinophils % 1% (0-5) Platelet Estimate Decreased (ADEQUATE) Anisocytosis Slight Sodium Level 138mmol/L (136-145) Potassium Level 4.4mmol/L (3.5-5.1) Chloride Level 100mmol/L (98-107) Carbon Dioxide Level 23mmol/L (21-32) Anion Gap 15 (6-14) Blood Urea Nitrogen 23mg/dL (8-26) Creatinine 4.5mg/dL (0.7-1.3) Estimated GFR (Cockcroft-Gault) 13.1 Glucose Level 187mg/dL (70-99) Lactic Acid Level 2.5mmol/L (0.4-2.0) 4.0mmol/L (0.4-2.0) Calcium Level 8.6mg/dL (8.5-10.1) Total Bilirubin 0.8mg/dL (0.2-1.0) Direct Bilirubin 0.3mg/dL (0.0-0.2) Aspartate Amino Transf (AST/SGOT) 15U/L (15-37) Alanine Aminotransferase (ALT/SGPT) 9U/L (16-63) Alkaline Phosphatase 141U/L (46-116) Troponin I Quantitative 0.101ng/mL (0.000-0.055) 0.100ng/mL (0.000-0.055) SW-Dbj-K-Type Natriuretic Peptide > 91828ew/mL (0-124) Total Protein 6.8g/dL (6.4-8.2) Albumin 3.1g/dL (3.4-5.0) Lipase 51U/L (73-393) Glucose (Fingerstick) 138mg/dL (70-99) 185mg/dL (70-99) Test 10/01/16 07:45 White Blood Count 21.3x10^3/uL (4.0-11.0) Red Blood Count 4.22x10^6/uL (4.30-5.70) Hemoglobin 13.4g/dL (13.0-17.5) Hematocrit 41.5% (39.0-53.0) Mean Corpuscular Volume 98fL (79-100) Mean Corpuscular Hemoglobin 32pg (25-35) Mean Corpuscular Hemoglobin Concent 32g/dL (31-37) Red Cell Distribution Width 15.9% (11.5-14.5) Platelet Count 169x10^3/uL (140-400) Neutrophils (%) (Auto) 90% (31-73) Lymphocytes (%) (Auto) 3% (24-48) Monocytes (%) (Auto) 7% (0-9) Eosinophils (%) (Auto) 0% (0-3) Basophils (%) (Auto) 0% (0-3) Neutrophils # (Auto) 19.1x10^3uL (1.8-7.7) Lymphocytes # (Auto) 0.6x10^3/uL (1.0-4.8) Monocytes # (Auto) 1.5x10^3/uL (0.0-1.1) Eosinophils # (Auto) 0.0x10^3/uL (0.0-0.7) Basophils # (Auto) 0.1x10^3/uL (0.0-0.2) Sodium Level 141mmol/L (136-145) Potassium Level 4.9mmol/L (3.5-5.1) Chloride Level 100mmol/L (98-107) Carbon Dioxide Level 23mmol/L (21-32) Anion Gap 18 (6-14) Blood Urea Nitrogen 32mg/dL (8-26) Creatinine 5.1mg/dL (0.7-1.3) Estimated GFR (Cockcroft-Gault) 11.4 Glucose Level 193mg/dL (70-99) Calcium Level 8.7mg/dL (8.5-10.1) Troponin I Quantitative 0.166ng/mL (0.000-0.055) Images Images IMPRESSION One. Tiny pleural effusions bilaterally. Previously there is a tiny pleural effusion on the left. 2. Right nephrectomy and atrophic left kidney. 3. Bilateral abdominal wall hematoma below the umbilicus the larger is on the right and measures 5.0 by 2.4 centimeters. RIVKA PIEDRA MD Oct 01, 2016 09:36
[2016-10-01] MEDS ORDERED: CONTRAST GIVEN MC PRN (10:00)
[2016-10-01] MEDS ORDERED: IOHEXOL 240 MG/ML 50ML VIAL. PO ONE (10:00)
[2016-10-01] MEDS ORDERED: IOHEXOL 300 MG/ML 75 ML VIAL IV ONE (10:00)
[2016-10-01 11:15] VITALS: BP 103/85
--- NOTE | 2016-10-01 11:29 | CARD ---
APPROVED REPORT EXAM: Two-dimensional and M-mode echocardiogram with Doppler and color Doppler. Other Information Quality : Average Rhythm : Pacemaker INDICATION Cardiomyopathy Pericardial vs pleural rub 2D DIMENSIONS Left Atrium(2D)4.1 (1.6-4.0cm)IVSd0.7 (0.7-1.1cm) Aortic Root(2D)2.8 (2.0-3.7cm)LVDd5.9 (3.9-5.9cm) LVOT Diameter2.0 (1.8-2.4cm)PWd0.7 (0.7-1.1cm) LVDs5.6 (2.5-4.0cm)FS (%) 5.8 % SV22.2 mlLVEF(%)12.8 (>50%) Aortic Valve AoV Peak Reji.139.0cm/sAoV VTI17.6cm AO Peak GR.7.7mmHgLVOT VTI 9.45cm AO Mean GR.4mmHgAVA (VTI)1.80cm2 Mitral Valve MV E Mmfgzswd579.3cm/sMV E Peak Gr.123mmHg MV DECEL [id number] E Mean Gr.69mmHg MV [id number] (PHT)6.11cm2 TDI Lateral E' P. V9.53cm/sMedial E' P. V7.25cm/s E/Lateral E'12.3E/Medial E'16.2 Tricuspid Valve TR P. [id number]/sRAP [id number] TR Peak Gr.[id number] LEFT VENTRICLE The left ventricle is mildly enlarged to 5.89cms.. There is normal left ventricular wall thickness. L eft ventricle systolic function is severely impaired. The Ejection Fraction is 10-15%. There is sever e hypokinesis of the left ventricle. Septal motion consistent with conduction abnormality. Not assess ed. RIGHT VENTRICLE The right ventricle is normal size. The right ventricular systolic function is normal. There is a pac emaker lead seen in the RV/RA. AORTIC VALVE The aortic valve is moderately sclerotic. The aortic valve is trileaflet. Doppler and Color Flow reve aled no significant aortic regurgitation. There is no significant aortic valvular stenosis. MITRAL VALVE Mitral annular calcification is mild. There is no mitral valve stenosis. Doppler and Color Flow revea led moderate mitral regurgitation. TRICUSPID VALVE The tricuspid valve is normal in structure. Doppler and Color Flow revealed mild tricuspid regurgitat ion. The PA pressure was estimated at 52 mmHg. There is no tricuspid valve stenosis. PULMONIC VALVE The pulmonic valve is not well visualized. Doppler and Color Flow revealed no pulmonic valvular regur gitation. There is no pulmonic valvular stenosis. GREAT VESSELS The aortic root is normal in size. Normal pulmonary venous flow (Doppler). The IVC is dilated and col lapses >50% with inspiration. PERICARDIAL EFFUSION There is small pleural effusion. There is no evidence of significant pericardial effusion. Critical Notification Critical Value: No <Conclusion> The left ventricle is mildly enlarged to 5.89cms.. There is normal left ventricular wall thickness. Left ventricle systolic function is severely impaired. The Ejection Fraction is 10-15%. There is a Grade III diastolic dysfunction with the mitral E wave deceleration time of 98 msecs. There is an increase in the left atrial filling pressure. There is no evidence of significant pericardial effusion. There is no mitral valve stenosis. Doppler and Color Flow revealed moderate mitral regurgitation. The left atrium is mildly enlarged. The aortic valve is moderately sclerotic. The aortic valve is trileaflet. There is no significant aortic valvular stenosis. Doppler and Color Flow revealed no significant aortic regurgitation. The right ventricle is of a normal size with normal systolic function Doppler and Color Flow revealed mild tricuspid regurgitation. The PA pressure was estimated at 52 mmHg. indicating a moderate pulmonary hypertension The pulmonic valve is normal IMPRESSION: 1.sEVERE SYSTOLIC AND DIASTOLIC DYSFUNCTION 2.MODERATE MITRAL REGURGITATION. 3.MODERATE PULMONARY HYPERTENSION
--- NOTE | 2016-10-01 11:37 | PDOC2 ---
CONSULT Date of Consult Date of Consult DATE: 10/01/16 TIME: 11:27 Reason for Consult Reason for Consult: Elevated BNP and Troponins. Referring Physician Referring Physician: Dr. Mario Calzada Identification/Chief Complaint Chief Complaint Abdominal Pain Source Source: Chart review, Patient History of Present Illness Reason for Visit: Mr. Calzada is a pleasant 65 y/o M with a known history of T2DM and ESRD who presents with a chief complaint of abdominal pain. He went to the bathroom last evening and fell into the floor doubled over with abdominal pain that he rated as a 7-8/10 at that time. The pain is in his left upper quadrant and radiates to the right upper quadrant of his abdomen. He is also endorsing some nausea and shortness of breath with this pain. He was found to be anemic and to have leukocytosis in the ER. He says the pain has improved minimally with Dialaudid and Morphine and that Fentanyl he was given in the ER did not help very much at all. He is denying chest pain at this time. Past Medical History Cardiovascular: AFIB, CAD, CHF, HTN, Valve insufficiency, Pulmonary hypertension Heme/Onc: Cancer, Iron deficiency Anemia Musculoskeletal: Muscle atrophy, Weakness Renal/: Chronic renal failure Past Surgical History Past Surgical History: Cholecystectomy, Cataract Removal, Colon Resection, Other Family History Family History: Cancer Social History Quit ALCOHOL: none Drugs: None Lives: with Family Current Problem List Problem List Problems Medical Problems: (1) CAD (coronary artery disease) Status: Acute (2) ESRD (end stage renal disease) on dialysis Status: Acute (3) Periumbilical abdominal pain Status: Acute Current Medications Current Medications Current Medications Hydromorphone HCl (Dilaudid) 0.5 mg PRN Q1HR PRN IV SEVERE PAIN Last administered on 10/01/16 01:11; Start 09/30/16 at 21:45; Stop 10/01/16 at 01:11 ; Status DC Ondansetron HCl 4 mg 4 mg 1X ONCE IV Last administered on 09/30/16 21:45; Start 09/30/16 at 21:45; Stop 09/30/16 at 21:46; Status DC Sodium Chloride (Iv Sodium Chloride 0.9% 500ml Bag) 500 ml @ 500 mls/hr 1X ONCE IV ; Start 09/30/16 at 21:45; Stop 09/30/16 at 23:05; Status DC Ondansetron HCl (Zofran) 4 mg PRN Q8HRS PRN IV NAUSEA/VOMITING; Start 09/30/16 at 23:00; Stop 10/01/16 at 22:59 Morphine Sulfate 2 mg PRN Q2HR PRN IV PAIN Last administered on 10/01/16 08:55 ; Start 09/30/16 at 23:00; Stop 10/01/16 at 22:59 Hydromorphone HCl (Dilaudid) 0.5 mg PRN Q4HRS PRN IV PAIN Last administered on 10/01/16 11:17; Start 10/01/16 at 01:30 Calcium Acetate (Phoslo) 667 mg TIDWMEALS PO Last administered on 10/01/16 08: 54; Start 10/01/16 at 08:30 Famotidine (Pepcid) 20 mg QHS PO ; Start 10/01/16 at 21:00 Gabapentin (Neurontin) 100 mg BID PO Last administered on 10/01/16 09:00; Start 10/01/16 at 09:00 Nitroglycerin (Nitrostat) 0.4 mg PRN Q1HR PRN SL CHEST PAIN; Start 10/01/16 at 08:00 Oxycodone/ Acetaminophen (Percocet 7.5/ 325) 1 tab TID PRN PO PAIN; Start 10/01 at 08:00 Polyethylene Glycol (miraLAX PACKET) 17 gm PRN DAILY PRN PO CONSTIPATION; Start 10/01/16 at 09:00 Ranolazine (Ranexa) 500 mg DAILY PO Last administered on 10/01/16 09:00; Start 10/01/16 at 09:00 Tamsulosin HCl (Flomax) 0.4 mg HS PO ; Start 10/01/16 at 21:00 Insulin Aspart (Novolog) 0-7 UNITS TIDWMEALS SQ ; Start 10/01/16 at 12:00 Dextrose 12.5 gm 12.5 gm PRN Q15MIN PRN IV SEE COMMENTS; Start 10/01/16 at 08: 15 Magnesium Sulfate/ Dextrose (Magnesium Sulfate PREMIX 2GM) 50 ml @ 25 mls/hr PRN DAILY PRN IV for Mag < 1.7 on am labs; Start 10/01/16 at 09:30 Iohexol (Omnipaque 240 Mg/ml) 30 ml 1X ONCE PO ; Start 10/01/16 at 10:00; Stop 10/01/16 at 10:01; Status DC Iohexol (Omnipaque 300 Mg/ml) 75 ml 1X ONCE IV ; Start 10/01/16 at 10:00; Stop 10/01/16 at 10:01; Status DC Info (Do NOT chart on this entry -- for MONITORING) 1 each PRN DAILY PRN MC SEE COMMENTS; Start 10/01/16 at 10:00; Stop 10/03/16 at 09:59 Active Scripts Active Reported Humulin 70-30 Vial (Hum Insulin Nph/Reg Insulin Hm) 100 Unit/1 Ml Vial 20 Unit SQ BIDWMEALS Gabapentin 100 Mg Capsule 100 Mg PO BID Ranexa (Ranolazine) 500 Mg Tab.er.12h 1 Tab PO DAILY Phoslo (Calcium Acetate) 667 Mg Capsule 667 Mg PO TIDWMEALS Polyethylene Glycol 3350 255 Gm Powder 17 Gm PO DAILY PRN Anoro Ellipta 62.5-25 Mcg Inh (Umeclidinium Brm/Vilanterol Tr) 1 Each Disk.w.dev 1 Each IH DAILY Clopidogrel (Clopidogrel Bisulfate) 75 Mg Tablet 1 Tab PO DAILY Percocet 7.5-325 Mg Tablet (Oxycodone/Acetaminophen) 1 Each Tablet 1 Tab PO TID PRN Dialyvite 800 Tablet (Folic Acid/Vitamin B Comp W-C) 0.8 Mg Tablet 0.8 Mg PO DAILY NITROGLYCERIN SubLingual (Nitroglycerin) 0.4 Mg Tab.subl 0.4 Mg SL PRN Allopurinol 300 Mg Tablet 300 Mg PO DAILY Pepcid (Famotidine) 20 Mg Tablet 20 Mg PO QHS Lanoxin (Digoxin) 125 Mcg Tablet 125 Mcg PO DAILY Flomax (Tamsulosin Hcl) 0.4 Mg Cap.er.24h 0.4 Mg PO HS Aspirin 81 Mg Tab.chew 81 Mg PO DAILY Allergies Allergies: Coded Allergies: adhesive (Verified Allergy, Severe, STERI STRIPS- PEELING SKIN, 08/25/16) STERI STRIPS ROS Review of System Patient is endorsing nausea and shortness of breath. He denies diaphoresis, diarrhea, and vomiting. Physical Exam General: moderate distress Lungs: Clear to auscultation Heart: Regular rate, Normal S1, Normal S2, No murmurs Vitals VITALS Vital Signs Date Time Temp Pulse Resp B/P Pulse Ox O2 Delivery O2 Flow Rate FiO2 10/01/16 11:17 Nasal Cannula 2.0 10/01/16 09:00 96 157/88 10/01/16 07:15 98.2 20 95 98.2 Labs Labs Laboratory Tests Test 09/30/16 20:40 10/01/16 00:10 10/01/16 01:45 10/01/16 07:33 White Blood Count 15.9x10^3/uL (4.0-11.0) Red Blood Count 3.82x10^6/uL (4.30-5.70) Hemoglobin 12.1g/dL (13.0-17.5) Hematocrit 38.3% (39.0-53.0) Mean Corpuscular Volume 100fL (79-100) Mean Corpuscular Hemoglobin 32pg (25-35) Mean Corpuscular Hemoglobin Concent 32g/dL (31-37) Red Cell Distribution Width 15.8% (11.5-14.5) Platelet Count 130x10^3/uL (140-400) Neutrophils (%) (Auto) 87% (31-73) Lymphocytes (%) (Auto) 6% (24-48) Monocytes (%) (Auto) 6% (0-9) Eosinophils (%) (Auto) 0% (0-3) Basophils (%) (Auto) 1% (0-3) Neutrophils # (Auto) 13.8x10^3uL (1.8-7.7) Lymphocytes # (Auto) 0.9x10^3/uL (1.0-4.8) Monocytes # (Auto) 1.0x10^3/uL (0.0-1.1) Eosinophils # (Auto) 0.1x10^3/uL (0.0-0.7) Basophils # (Auto) 0.1x10^3/uL (0.0-0.2) Segmented Neutrophils % 87% (35-66) Band Neutrophils % 3% (0-9) Lymphocytes % 3% (24-48) Monocytes % 6% (0-10) Eosinophils % 1% (0-5) Platelet Estimate Decreased (ADEQUATE) Anisocytosis Slight Sodium Level 138mmol/L (136-145) Potassium Level 4.4mmol/L (3.5-5.1) Chloride Level 100mmol/L (98-107) Carbon Dioxide Level 23mmol/L (21-32) Anion Gap 15 (6-14) Blood Urea Nitrogen 23mg/dL (8-26) Creatinine 4.5mg/dL (0.7-1.3) Estimated GFR (Cockcroft-Gault) 13.1 Glucose Level 187mg/dL (70-99) Lactic Acid Level 2.5mmol/L (0.4-2.0) 4.0mmol/L (0.4-2.0) Calcium Level 8.6mg/dL (8.5-10.1) Total Bilirubin 0.8mg/dL (0.2-1.0) Direct Bilirubin 0.3mg/dL (0.0-0.2) Aspartate Amino Transf (AST/SGOT) 15U/L (15-37) Alanine Aminotransferase (ALT/SGPT) 9U/L (16-63) Alkaline Phosphatase 141U/L (46-116) Troponin I Quantitative 0.101ng/mL (0.000-0.055) 0.100ng/mL (0.000-0.055) WG-Xow-O-Type Natriuretic Peptide > 32904rs/mL (0-124) Total Protein 6.8g/dL (6.4-8.2) Albumin 3.1g/dL (3.4-5.0) Lipase 51U/L (73-393) Glucose (Fingerstick) 138mg/dL (70-99) 185mg/dL (70-99) Test 10/01/16 07:45 10/01/16 10:37 White Blood Count 21.3x10^3/uL (4.0-11.0) Red Blood Count 4.22x10^6/uL (4.30-5.70) Hemoglobin 13.4g/dL (13.0-17.5) Hematocrit 41.5% (39.0-53.0) Mean Corpuscular Volume 98fL (79-100) Mean Corpuscular Hemoglobin 32pg (25-35) Mean Corpuscular Hemoglobin Concent 32g/dL (31-37) Red Cell Distribution Width 15.9% (11.5-14.5) Platelet Count 169x10^3/uL (140-400) Neutrophils (%) (Auto) 90% (31-73) Lymphocytes (%) (Auto) 3% (24-48) Monocytes (%) (Auto) 7% (0-9) Eosinophils (%) (Auto) 0% (0-3) Basophils (%) (Auto) 0% (0-3) Neutrophils # (Auto) 19.1x10^3uL (1.8-7.7) Lymphocytes # (Auto) 0.6x10^3/uL (1.0-4.8) Monocytes # (Auto) 1.5x10^3/uL (0.0-1.1) Eosinophils # (Auto) 0.0x10^3/uL (0.0-0.7) Basophils # (Auto) 0.1x10^3/uL (0.0-0.2) Sodium Level 141mmol/L (136-145) Potassium Level 4.9mmol/L (3.5-5.1) Chloride Level 100mmol/L (98-107) Carbon Dioxide Level 23mmol/L (21-32) Anion Gap 18 (6-14) Blood Urea Nitrogen 32mg/dL (8-26) Creatinine 5.1mg/dL (0.7-1.3) Estimated GFR (Cockcroft-Gault) 11.4 Glucose Level 193mg/dL (70-99) Calcium Level 8.7mg/dL (8.5-10.1) Lactate Dehydrogenase 190U/L (85-227) Troponin I Quantitative 0.166ng/mL (0.000-0.055) Glucose (Fingerstick) 196mg/dL (70-99) Laboratory Tests Test 09/30/16 20:40 10/01/16 00:10 10/01/16 01:45 10/01/16 07:33 White Blood Count 15.9x10^3/uL (4.0-11.0) Red Blood Count 3.82x10^6/uL (4.30-5.70) Hemoglobin 12.1g/dL (13.0-17.5) Hematocrit 38.3% (39.0-53.0) Mean Corpuscular Volume 100fL (79-100) Mean Corpuscular Hemoglobin 32pg (25-35) Mean Corpuscular Hemoglobin Concent 32g/dL (31-37) Red Cell Distribution Width 15.8% (11.5-14.5) Platelet Count 130x10^3/uL (140-400) Neutrophils (%) (Auto) 87% (31-73) Lymphocytes (%) (Auto) 6% (24-48) Monocytes (%) (Auto) 6% (0-9) Eosinophils (%) (Auto) 0% (0-3) Basophils (%) (Auto) 1% (0-3) Neutrophils # (Auto) 13.8x10^3uL (1.8-7.7) Lymphocytes # (Auto) 0.9x10^3/uL (1.0-4.8) Monocytes # (Auto) 1.0x10^3/uL (0.0-1.1) Eosinophils # (Auto) 0.1x10^3/uL (0.0-0.7) Basophils # (Auto) 0.1x10^3/uL (0.0-0.2) Segmented Neutrophils % 87% (35-66) Band Neutrophils % 3% (0-9) Lymphocytes % 3% (24-48) Monocytes % 6% (0-10) Eosinophils % 1% (0-5) Platelet Estimate Decreased (ADEQUATE) Anisocytosis Slight Sodium Level 138mmol/L (136-145) Potassium Level 4.4mmol/L (3.5-5.1) Chloride Level 100mmol/L (98-107) Carbon Dioxide Level 23mmol/L (21-32) Anion Gap 15 (6-14) Blood Urea Nitrogen 23mg/dL (8-26) Creatinine 4.5mg/dL (0.7-1.3) Estimated GFR (Cockcroft-Gault) 13.1 Glucose Level 187mg/dL (70-99) Lactic Acid Level 2.5mmol/L (0.4-2.0) 4.0mmol/L (0.4-2.0) Calcium Level 8.6mg/dL (8.5-10.1) Total Bilirubin 0.8mg/dL (0.2-1.0) Direct Bilirubin 0.3mg/dL (0.0-0.2) Aspartate Amino Transf (AST/SGOT) 15U/L (15-37) Alanine Aminotransferase (ALT/SGPT) 9U/L (16-63) Alkaline Phosphatase 141U/L (46-116) Troponin I Quantitative 0.101ng/mL (0.000-0.055) 0.100ng/mL (0.000-0.055) PW-Zgd-U-Type Natriuretic Peptide > 71499pt/mL (0-124) Total Protein 6.8g/dL (6.4-8.2) Albumin 3.1g/dL (3.4-5.0) Lipase 51U/L (73-393) Glucose (Fingerstick) 138mg/dL (70-99) 185mg/dL (70-99) Test 10/01/16 07:45 10/01/16 10:37 White Blood Count 21.3x10^3/uL (4.0-11.0) Red Blood Count 4.22x10^6/uL (4.30-5.70) Hemoglobin 13.4g/dL (13.0-17.5) Hematocrit 41.5% (39.0-53.0) Mean Corpuscular Volume 98fL (79-100) Mean Corpuscular Hemoglobin 32pg (25-35) Mean Corpuscular Hemoglobin Concent 32g/dL (31-37) Red Cell Distribution Width 15.9% (11.5-14.5) Platelet Count 169x10^3/uL (140-400) Neutrophils (%) (Auto) 90% (31-73) Lymphocytes (%) (Auto) 3% (24-48) Monocytes (%) (Auto) 7% (0-9) Eosinophils (%) (Auto) 0% (0-3) Basophils (%) (Auto) 0% (0-3) Neutrophils # (Auto) 19.1x10^3uL (1.8-7.7) Lymphocytes # (Auto) 0.6x10^3/uL (1.0-4.8) Monocytes # (Auto) 1.5x10^3/uL (0.0-1.1) Eosinophils # (Auto) 0.0x10^3/uL (0.0-0.7) Basophils # (Auto) 0.1x10^3/uL (0.0-0.2) Sodium Level 141mmol/L (136-145) Potassium Level 4.9mmol/L (3.5-5.1) Chloride Level 100mmol/L (98-107) Carbon Dioxide Level 23mmol/L (21-32) Anion Gap 18 (6-14) Blood Urea Nitrogen 32mg/dL (8-26) Creatinine 5.1mg/dL (0.7-1.3) Estimated GFR (Cockcroft-Gault) 11.4 Glucose Level 193mg/dL (70-99) Calcium Level 8.7mg/dL (8.5-10.1) Lactate Dehydrogenase 190U/L (85-227) Troponin I Quantitative 0.166ng/mL (0.000-0.055) Glucose (Fingerstick) 196mg/dL (70-99) Assessment/Plan Assessment/Plan 1. Elevated Troponins 2. Elevated BNP 3. Abdominal Pain The patient's elevated Troponins and BNP are likely related to his kidney function, but I have ordered an echocardiogram and will comment further with recommendations after reading the echo. Agree with current treatment of pain. Continue home medications. Thank you for consulting me in the care of this patient. LEXI ALTAMIRANO MD Oct 01, 2016 11:37
[2016-10-01] MEDS: INSULIN ASPART 300 UNITS/3 ML INSULN.PEN SQ SCH ×2 (12:00→17:00)
--- NOTE | 2016-10-01 13:45 | RAD ---
EXAM: CT abdomen/pelvis with contrast. HISTORY: Left abdominal pain. TECHNIQUE: Computed tomography of the abdomen and pelvis was performed after the intravenous administration of 75 mL Omnipaque 300. COMPARISON: None. FINDINGS: Lung windows through the visualized portions of the bases reveal small bilateral pleural effusions with associated atelectasis. The heart is moderately enlarged. Pacemaker leads are noted. Bone windows reveal no suspicious lesions. The gallbladder is surgically absent. The liver, spleen and adrenal glands are unremarkable. The pancreas is atrophic without focal lesions. The left kidney is moderately atrophic. The right kidney is surgically absent. There are regions of soft tissue density within the subcutaneous fat of the lower anterior abdominal wall that measure up to 4 x 2 cm. There is no clear drainable collection. A small right inguinal hernia contains only fat. The prostate is moderately enlarged. The bladder is decompressed. The jejunum is mildly distended with gas. The ileum is completely decompressed. There is no clear transition point. There are no pathologically enlarged nodes. There is mild edema in the presacral space. IMPRESSION: 1. Mild distention of the ileum without a transition point to suggest obstruction. Correlate for enteritis. No clear acute processes identified. 2. 2 regions of soft tissue density in the abdominal subcutaneous fat may correspond with subcutaneous injections or ecchymoses. Correlate clinically. 3. Small right inguinal hernia containing only fat. 4. Bilateral pleural effusions. Moderate cardiomegaly. *One or more of the following individualized dose reduction techniques were utilized for this examination: 1. Automated exposure control. 2. Adjustment of the mA and/or kV according to patient size. 3. Use of iterative reconstruction technique.
--- NOTE | 2016-10-01 13:55 | RAD ---
EXAM: CT ANGIOGRAPHY OF THE CHEST WITH AND WITHOUT INTRAVENOUS CONTRAST. HISTORY: Left chest pain. TECHNIQUE: Computed tomographic angiography of the chest was performed before and after the intravenous administration of 60 mL Omnipaque 300. 3-D maximum intensity projections were also performed. COMPARISON: None. FINDINGS: Images of the upper abdomen reveal changes of cholecystectomy. Bone windows reveal no suspicious lesions. No pulmonary emboli are identified. The aorta is not well opacified. No dissection or aneurysm is appreciated. There are no pathologically enlarged mediastinal or axillary lymph nodes. There are small moderate bilateral pleural effusions. Some pleural fat appears to dangle within the right pleural effusion versus some fibrin material. There is no pericardial effusion. The heart is moderately enlarged. There are changes of coronary artery bypass grafting. A left-sided pacemaker is noted. There are nodular and groundglass infiltrates in both upper lobes. The lower lungs are relatively spared. There is a calcified granuloma in the right lower lobe. IMPRESSION: 1. The aorta is not well opacified but there is no evidence of dissection or aneurysm. 2. No pulmonary embolism. 3. Moderate cardiomegaly. 4. Small moderate bilateral pleural effusions. 5. Groundglass infiltrates in both upper lobes most likely represent pulmonary edema. Correlate for evidence of infection to exclude pneumonia. *One or more of the following individualized dose reduction techniques were utilized for this examination: 1. Automated exposure control. 2. Adjustment of the mA and/or kV according to patient size. 3. Use of iterative reconstruction technique.
[2016-10-01 15:15] VITALS: BP 142/72
[2016-10-01] MEDS ORDERED: DIALYSIS PATIENT. MC PRN (16:30)
[2016-10-01 19:00] VITALS: BP 139/73
[2016-10-01] MEDS: TAMSULOSIN 0.4 MG CAP.ER.24H. PO SCH (20:25)
[2016-10-01] MEDS ORDERED: FAMOTIDINE 20 MG TABLET. PO SCH (21:00)
--- NOTE | 2016-10-01 21:10 | PDOC ---
Provider Note Provider Note Covering for Dr. Matthews. Consult dictated. He complains of abdominal pain and nausea. He's had recent abdominal surgery. He has severe systolic and diastolic dysfunction of the left ventricle and moderate mitral regurgitation. BNP is significantly elevated which is probably due to fluid retention. Mild elevation of the troponin is probably due to renal failure and CHF. No need to pursue an ischemic reason at this time. His true weight is probably much lower than what is in the dialysis record. He 's had recent surgery and nausea. The abdominal pain that he is having could very well be due to due to hepatic congestion. I would like more fluid removed with his dialysis. Will discuss with the oil dispenser. This may reduce his abdominal pain. Thank you for asking us to see him. LISSETTE WEST MD Oct 01, 2016 21:10
[2016-10-01 23:00] VITALS: BP 135/72
[2016-10-02] MEDS: HYDROMORPHONE 2 MG/ML VIAL. IV PRN ×3 (03:41→20:38)
[2016-10-02 07:43] LABS: ALBUMIN 2.5 g/dL (3.4-5.0); CALCIUM 8.4 mg/dL (8.5-10.1); CREATININE 6.7 mg/dL (0.7-1.3); GFR 8.3; PHOSPHORUS 6.2 mg/dL (2.6-4.7); POTASSIUM 5.1 mmol/L (3.5-5.1)
[2016-10-02 07:50] VITALS: BP 135/74
[2016-10-02] MEDS ORDERED: IV NORMAL SALINE 1000ML BAG 1,000 ML IV PRN ×2 (07:51)
--- NOTE | 2016-10-02 07:55 | RAD ---
EXAM: Chest one view. HISTORY: Congestive heart failure, shortness of breath. COMPARISON: 08/25/2016. FINDINGS: A frontal view of the chest is obtained. A left-sided pacer/defibrillator has its lead in the right ventricle. There are changes of coronary artery bypass grafting. There are mild airspace opacities in the retrocardiac distribution. There is no pneumothorax or pleural effusion. The heart is mildly enlarged. There are atherosclerotic calcifications of the aorta. IMPRESSION: 1. Mild retrocardiac atelectasis or pneumonia. 2. Mild cardiomegaly.
[2016-10-02] MEDS ORDERED: DIALYSIS PATIENT. MC PRN (08:00)
[2016-10-02] MEDS ORDERED: LABETALOL 20 MG/4 ML DISP.SYRIN. IVP PRN (08:00)
[2016-10-02] MEDS: INSULIN ASPART 300 UNITS/3 ML INSULN.PEN SQ SCH ×3 (08:00→17:00)
[2016-10-02] MEDS: CALCIUM ACETATE 667 MG CAPSULE PO SCH ×3 (08:00→17:00)
[2016-10-02] MEDS ORDERED: LIDOCAINE 1% PF 2 ML VIAL. ID ONE (08:00)
[2016-10-02] MEDS ORDERED: DIPHENHYDRAMINE 50 MG/ML VIAL IV PRN ×2 (08:00)
[2016-10-02] MEDS: RANOLAZINE 500 MG TAB.ER.12H PO SCH (08:32)
--- NOTE | 2016-10-02 08:59 | PDOC ---
Provider Note Provider Note vss, glucose up a little- still SP pain after eating , ? mesenteric ischemia- consider mra- ct chest , echo ok-- add low dose SANDEEP Aponte MD Oct 02, 2016 08:59
[2016-10-02] MEDS: GABAPENTIN 100 MG CAPSULE. PO SCH ×2 (09:00→20:37)
[2016-10-02] MEDS ORDERED: ONDANSETRON PF 4 MG/2 ML VIAL. IV STA (09:25)
--- NOTE | 2016-10-02 09:41 | PDOC ---
Dialysis Progress Note Dialysis Note Dialysis Note Seen on Hemodialysis, tolerating treatment Well Vitals on Hemodialysis: 118/65 89 16 afeb General Appearance: Awake: Alert Oriented x 2 Neck: No JVD or JVP Chest: CTA Enmanuel Heart: S1 S2 Abdomen - Soft NTND Extremities - No Edema ESRD: Dialysis as below F 180 NR 3.5 Hrs 2 K 2.5 Ca 140 Na 35 HC03 Qb 350 + Qd 500+ Heparin 0 Units Uf 0-1 Kgs or to dry weight as tolerated May give 25-50 gms of 25% Albumin if needed to maintain Hemodynamic stability Treatment plan reviewed and discussed with [facility] Will try to Uf but pt not tolerating even min fluid removal (suspect due to Cardiac status - CHF + VHDz) May need Pl. Eff tapped to help with resp status. Also ? Need for HALEY to eval MR severity. Would he be a candidate for intervention if sev? Reval on HD Vitals Vital Signs Vital Signs Date Time Temp Pulse Resp B/P Pulse Ox O2 Delivery O2 Flow Rate FiO2 10/02/16 08:32 88 135/74 10/02/16 08:29 92 Nasal Cannula 2.0 10/02/16 07:50 97.6 18 97.6 Labs Last Labs Laboratory Tests Test 09/30/16 20:40 10/01/16 00:10 10/01/16 00:45 10/01/16 01:45 White Blood Count 15.9x10^3/uL (4.0-11.0) Red Blood Count 3.82x10^6/uL (4.30-5.70) Hemoglobin 12.1g/dL (13.0-17.5) Hematocrit 38.3% (39.0-53.0) Mean Corpuscular Volume 100fL (79-100) Mean Corpuscular Hemoglobin 32pg (25-35) Mean Corpuscular Hemoglobin Concent 32g/dL (31-37) Red Cell Distribution Width 15.8% (11.5-14.5) Platelet Count 130x10^3/uL (140-400) Neutrophils (%) (Auto) 87% (31-73) Lymphocytes (%) (Auto) 6% (24-48) Monocytes (%) (Auto) 6% (0-9) Eosinophils (%) (Auto) 0% (0-3) Basophils (%) (Auto) 1% (0-3) Neutrophils # (Auto) 13.8x10^3uL (1.8-7.7) Lymphocytes # (Auto) 0.9x10^3/uL (1.0-4.8) Monocytes # (Auto) 1.0x10^3/uL (0.0-1.1) Eosinophils # (Auto) 0.1x10^3/uL (0.0-0.7) Basophils # (Auto) 0.1x10^3/uL (0.0-0.2) Segmented Neutrophils % 87% (35-66) Band Neutrophils % 3% (0-9) Lymphocytes % 3% (24-48) Monocytes % 6% (0-10) Eosinophils % 1% (0-5) Platelet Estimate Decreased (ADEQUATE) Anisocytosis Slight Sodium Level 138mmol/L (136-145) Potassium Level 4.4mmol/L (3.5-5.1) Chloride Level 100mmol/L (98-107) Carbon Dioxide Level 23mmol/L (21-32) Anion Gap 15 (6-14) Blood Urea Nitrogen 23mg/dL (8-26) Creatinine 4.5mg/dL (0.7-1.3) Estimated GFR (Cockcroft-Gault) 13.1 Glucose Level 187mg/dL (70-99) Lactic Acid Level 2.5mmol/L (0.4-2.0) 4.0mmol/L (0.4-2.0) Calcium Level 8.6mg/dL (8.5-10.1) Total Bilirubin 0.8mg/dL (0.2-1.0) Direct Bilirubin 0.3mg/dL (0.0-0.2) Aspartate Amino Transf (AST/SGOT) 15U/L (15-37) Alanine Aminotransferase (ALT/SGPT) 9U/L (16-63) Alkaline Phosphatase 141U/L (46-116) Troponin I Quantitative 0.101ng/mL (0.000-0.055) 0.100ng/mL (0.000-0.055) IG-Uby-O-Type Natriuretic Peptide > 30561ug/mL (0-124) Total Protein 6.8g/dL (6.4-8.2) Albumin 3.1g/dL (3.4-5.0) Lipase 51U/L (73-393) Glucose (Fingerstick) 138mg/dL (70-99) Nasal Screen MRSA (PCR) Negative (Negative) Test 10/01/16 07:33 10/01/16 07:45 10/01/16 10:37 10/01/16 16:26 Glucose (Fingerstick) 185mg/dL (70-99) 196mg/dL (70-99) 193mg/dL (70-99) White Blood Count 21.3x10^3/uL (4.0-11.0) Red Blood Count 4.22x10^6/uL (4.30-5.70) Hemoglobin 13.4g/dL (13.0-17.5) Hematocrit 41.5% (39.0-53.0) Mean Corpuscular Volume 98fL (79-100) Mean Corpuscular Hemoglobin 32pg (25-35) Mean Corpuscular Hemoglobin Concent 32g/dL (31-37) Red Cell Distribution Width 15.9% (11.5-14.5) Platelet Count 169x10^3/uL (140-400) Neutrophils (%) (Auto) 90% (31-73) Lymphocytes (%) (Auto) 3% (24-48) Monocytes (%) (Auto) 7% (0-9) Eosinophils (%) (Auto) 0% (0-3) Basophils (%) (Auto) 0% (0-3) Neutrophils # (Auto) 19.1x10^3uL (1.8-7.7) Lymphocytes # (Auto) 0.6x10^3/uL (1.0-4.8) Monocytes # (Auto) 1.5x10^3/uL (0.0-1.1) Eosinophils # (Auto) 0.0x10^3/uL (0.0-0.7) Basophils # (Auto) 0.1x10^3/uL (0.0-0.2) Sodium Level 141mmol/L (136-145) Potassium Level 4.9mmol/L (3.5-5.1) Chloride Level 100mmol/L (98-107) Carbon Dioxide Level 23mmol/L (21-32) Anion Gap 18 (6-14) Blood Urea Nitrogen 32mg/dL (8-26) Creatinine 5.1mg/dL (0.7-1.3) Estimated GFR (Cockcroft-Gault) 11.4 Glucose Level 193mg/dL (70-99) Calcium Level 8.7mg/dL (8.5-10.1) Lactate Dehydrogenase 190U/L (85-227) Troponin I Quantitative 0.166ng/mL (0.000-0.055) Test 10/02/16 07:15 Hemoglobin 12.5g/dL (13.0-17.5) Sodium Level 139mmol/L (136-145) Potassium Level 5.1mmol/L (3.5-5.1) Chloride Level 98mmol/L (98-107) Carbon Dioxide Level 25mmol/L (21-32) Anion Gap 16 (6-14) Blood Urea Nitrogen 52mg/dL (8-26) Creatinine 6.7mg/dL (0.7-1.3) Estimated GFR (Cockcroft-Gault) 8.3 Glucose Level 210mg/dL (70-99) Lactic Acid Level 2.3mmol/L (0.4-2.0) Calcium Level 8.4mg/dL (8.5-10.1) Phosphorus Level 6.2mg/dL (2.6-4.7) Magnesium Level 1.7mg/dL (1.8-2.4) Albumin 2.5g/dL (3.4-5.0) Laboratory Tests Test 10/01/16 10:37 10/01/16 16:26 10/02/16 07:15 Glucose (Fingerstick) 196mg/dL (70-99) 193mg/dL (70-99) Hemoglobin 12.5g/dL (13.0-17.5) Sodium Level 139mmol/L (136-145) Potassium Level 5.1mmol/L (3.5-5.1) Chloride Level 98mmol/L (98-107) Carbon Dioxide Level 25mmol/L (21-32) Anion Gap 16 (6-14) Blood Urea Nitrogen 52mg/dL (8-26) Creatinine 6.7mg/dL (0.7-1.3) Estimated GFR (Cockcroft-Gault) 8.3 Glucose Level 210mg/dL (70-99) Lactic Acid Level 2.3mmol/L (0.4-2.0) Calcium Level 8.4mg/dL (8.5-10.1) Phosphorus Level 6.2mg/dL (2.6-4.7) Magnesium Level 1.7mg/dL (1.8-2.4) Albumin 2.5g/dL (3.4-5.0) Assessment Assessment Problems Medical Problems: (1) CAD (coronary artery disease) Status: Acute (2) ESRD (end stage renal disease) on dialysis Status: Acute (3) Periumbilical abdominal pain Status: Acute Problems: Plan Plan of Care Problems Medical Problems: (1) CAD (coronary artery disease) Status: Acute (2) ESRD (end stage renal disease) on dialysis Status: Acute (3) Periumbilical abdominal pain Status: Acute RIVKA PIEDRA MD Oct 02, 2016 09:41
--- NOTE | 2016-10-02 09:56 | PDOC ---
PROGRESS NOTES Subjective Subjective The patient was seen while in dialysis this morning. He is still endorsing nausea and dyspnea, but he says these symptoms are both improved compared to yesterday. He feels his pain is improving but still feels it is very severe. His echocardiogram showed an EF of 10-15%, mitral regurgitation, and severe systolic and diastolic dysfunction. Objective Objective Vital Signs Date Time Temp Pulse Resp B/P Pulse Ox O2 Delivery O2 Flow Rate FiO2 10/02/16 08:32 88 135/74 10/02/16 08:29 92 Nasal Cannula 2.0 10/02/16 07:50 97.6 18 97.6 Intake and Output 10/02/16 07:00 Intake Total 665 ml Output Total 1 ml Balance 664 ml Intake Oral 665 ml Output Urine Total 0 ml Emesis 1 ml Assessment Assessment Problems Medical Problems: (1) CAD (coronary artery disease) Status: Acute (2) ESRD (end stage renal disease) on dialysis Status: Acute (3) Periumbilical abdominal pain Status: Acute Plan Plan of Care 1. Abdominal pain- Agree with current treatment plan. 2. Elevated BNP and Troponins- On echocardiogram patient had EF of 10-15%, mitral regurgitation, and severe systolic and diastolic dysfunction. These findings suggest the patient's heart may be failing secondary to his kidney failure. -Will put in orders to start patient on diuretics. -Will continue to follow in care. Comment Review of Relevant I have reviewed the following items nicole (where applicable) has been applied. Labs Laboratory Tests Test 09/30/16 20:40 10/01/16 00:10 10/01/16 00:45 10/01/16 01:45 White Blood Count 15.9x10^3/uL (4.0-11.0) Red Blood Count 3.82x10^6/uL (4.30-5.70) Hemoglobin 12.1g/dL (13.0-17.5) Hematocrit 38.3% (39.0-53.0) Mean Corpuscular Volume 100fL (79-100) Mean Corpuscular Hemoglobin 32pg (25-35) Mean Corpuscular Hemoglobin Concent 32g/dL (31-37) Red Cell Distribution Width 15.8% (11.5-14.5) Platelet Count 130x10^3/uL (140-400) Neutrophils (%) (Auto) 87% (31-73) Lymphocytes (%) (Auto) 6% (24-48) Monocytes (%) (Auto) 6% (0-9) Eosinophils (%) (Auto) 0% (0-3) Basophils (%) (Auto) 1% (0-3) Neutrophils # (Auto) 13.8x10^3uL (1.8-7.7) Lymphocytes # (Auto) 0.9x10^3/uL (1.0-4.8) Monocytes # (Auto) 1.0x10^3/uL (0.0-1.1) Eosinophils # (Auto) 0.1x10^3/uL (0.0-0.7) Basophils # (Auto) 0.1x10^3/uL (0.0-0.2) Segmented Neutrophils % 87% (35-66) Band Neutrophils % 3% (0-9) Lymphocytes % 3% (24-48) Monocytes % 6% (0-10) Eosinophils % 1% (0-5) Platelet Estimate Decreased (ADEQUATE) Anisocytosis Slight Sodium Level 138mmol/L (136-145) Potassium Level 4.4mmol/L (3.5-5.1) Chloride Level 100mmol/L (98-107) Carbon Dioxide Level 23mmol/L (21-32) Anion Gap 15 (6-14) Blood Urea Nitrogen 23mg/dL (8-26) Creatinine 4.5mg/dL (0.7-1.3) Estimated GFR (Cockcroft-Gault) 13.1 Glucose Level 187mg/dL (70-99) Lactic Acid Level 2.5mmol/L (0.4-2.0) 4.0mmol/L (0.4-2.0) Calcium Level 8.6mg/dL (8.5-10.1) Total Bilirubin 0.8mg/dL (0.2-1.0) Direct Bilirubin 0.3mg/dL (0.0-0.2) Aspartate Amino Transf (AST/SGOT) 15U/L (15-37) Alanine Aminotransferase (ALT/SGPT) 9U/L (16-63) Alkaline Phosphatase 141U/L (46-116) Troponin I Quantitative 0.101ng/mL (0.000-0.055) 0.100ng/mL (0.000-0.055) BZ-Rtb-C-Type Natriuretic Peptide > 04889xv/mL (0-124) Total Protein 6.8g/dL (6.4-8.2) Albumin 3.1g/dL (3.4-5.0) Lipase 51U/L (73-393) Glucose (Fingerstick) 138mg/dL (70-99) Nasal Screen MRSA (PCR) Negative (Negative) Test 10/01/16 07:33 10/01/16 07:45 10/01/16 10:37 10/01/16 16:26 Glucose (Fingerstick) 185mg/dL (70-99) 196mg/dL (70-99) 193mg/dL (70-99) White Blood Count 21.3x10^3/uL (4.0-11.0) Red Blood Count 4.22x10^6/uL (4.30-5.70) Hemoglobin 13.4g/dL (13.0-17.5) Hematocrit 41.5% (39.0-53.0) Mean Corpuscular Volume 98fL (79-100) Mean Corpuscular Hemoglobin 32pg (25-35) Mean Corpuscular Hemoglobin Concent 32g/dL (31-37) Red Cell Distribution Width 15.9% (11.5-14.5) Platelet Count 169x10^3/uL (140-400) Neutrophils (%) (Auto) 90% (31-73) Lymphocytes (%) (Auto) 3% (24-48) Monocytes (%) (Auto) 7% (0-9) Eosinophils (%) (Auto) 0% (0-3) Basophils (%) (Auto) 0% (0-3) Neutrophils # (Auto) 19.1x10^3uL (1.8-7.7) Lymphocytes # (Auto) 0.6x10^3/uL (1.0-4.8) Monocytes # (Auto) 1.5x10^3/uL (0.0-1.1) Eosinophils # (Auto) 0.0x10^3/uL (0.0-0.7) Basophils # (Auto) 0.1x10^3/uL (0.0-0.2) Sodium Level 141mmol/L (136-145) Potassium Level 4.9mmol/L (3.5-5.1) Chloride Level 100mmol/L (98-107) Carbon Dioxide Level 23mmol/L (21-32) Anion Gap 18 (6-14) Blood Urea Nitrogen 32mg/dL (8-26) Creatinine 5.1mg/dL (0.7-1.3) Estimated GFR (Cockcroft-Gault) 11.4 Glucose Level 193mg/dL (70-99) Calcium Level 8.7mg/dL (8.5-10.1) Lactate Dehydrogenase 190U/L (85-227) Troponin I Quantitative 0.166ng/mL (0.000-0.055) Test 10/02/16 07:15 Hemoglobin 12.5g/dL (13.0-17.5) Sodium Level 139mmol/L (136-145) Potassium Level 5.1mmol/L (3.5-5.1) Chloride Level 98mmol/L (98-107) Carbon Dioxide Level 25mmol/L (21-32) Anion Gap 16 (6-14) Blood Urea Nitrogen 52mg/dL (8-26) Creatinine 6.7mg/dL (0.7-1.3) Estimated GFR (Cockcroft-Gault) 8.3 Glucose Level 210mg/dL (70-99) Lactic Acid Level 2.3mmol/L (0.4-2.0) Calcium Level 8.4mg/dL (8.5-10.1) Phosphorus Level 6.2mg/dL (2.6-4.7) Magnesium Level 1.7mg/dL (1.8-2.4) Albumin 2.5g/dL (3.4-5.0) Laboratory Tests Test 10/01/16 10:37 10/01/16 16:26 10/02/16 07:15 Glucose (Fingerstick) 196mg/dL (70-99) 193mg/dL (70-99) Hemoglobin 12.5g/dL (13.0-17.5) Sodium Level 139mmol/L (136-145) Potassium Level 5.1mmol/L (3.5-5.1) Chloride Level 98mmol/L (98-107) Carbon Dioxide Level 25mmol/L (21-32) Anion Gap 16 (6-14) Blood Urea Nitrogen 52mg/dL (8-26) Creatinine 6.7mg/dL (0.7-1.3) Estimated GFR (Cockcroft-Gault) 8.3 Glucose Level 210mg/dL (70-99) Lactic Acid Level 2.3mmol/L (0.4-2.0) Calcium Level 8.4mg/dL (8.5-10.1) Phosphorus Level 6.2mg/dL (2.6-4.7) Magnesium Level 1.7mg/dL (1.8-2.4) Albumin 2.5g/dL (3.4-5.0) Medications Current Medications Hydromorphone HCl (Dilaudid) 0.5 mg PRN Q1HR PRN IV SEVERE PAIN Last administered on 10/01/16 01:11; Start 09/30/16 at 21:45; Stop 10/01/16 at 01:11 ; Status DC Ondansetron HCl 4 mg 4 mg 1X ONCE IV Last administered on 09/30/16 21:45; Start 09/30/16 at 21:45; Stop 09/30/16 at 21:46; Status DC Sodium Chloride (Iv Sodium Chloride 0.9% 500ml Bag) 500 ml @ 500 mls/hr 1X ONCE IV ; Start 09/30/16 at 21:45; Stop 09/30/16 at 23:05; Status DC Ondansetron HCl (Zofran) 4 mg PRN Q8HRS PRN IV NAUSEA/VOMITING Last administered on 10/01/16 14:37; Start 09/30/16 at 23:00; Stop 10/01/16 at 22:59 ; Status DC Morphine Sulfate 2 mg PRN Q2HR PRN IV PAIN Last administered on 10/01/16 20:25 ; Start 09/30/16 at 23:00; Stop 10/01/16 at 22:59; Status DC Hydromorphone HCl (Dilaudid) 0.5 mg PRN Q4HRS PRN IV PAIN Last administered on 10/02/16 07:59; Start 10/01/16 at 01:30 Calcium Acetate (Phoslo) 667 mg TIDWMEALS PO Last administered on 10/01/16 17: 08; Start 10/01/16 at 08:30 Famotidine (Pepcid) 20 mg QHS PO Last administered on 10/01/16 20:25; Start at 21:00 Gabapentin (Neurontin) 100 mg BID PO Last administered on 10/01/16 20:25; Start 10/01/16 at 09:00 Nitroglycerin (Nitrostat) 0.4 mg PRN Q1HR PRN SL CHEST PAIN; Start 10/01/16 at 08:00 Oxycodone/ Acetaminophen (Percocet 7.5/ 325) 1 tab TID PRN PO PAIN; Start 10/01 at 08:00 Polyethylene Glycol (miraLAX PACKET) 17 gm PRN DAILY PRN PO CONSTIPATION; Start 10/01/16 at 09:00 Ranolazine (Ranexa) 500 mg DAILY PO Last administered on 10/02/16 08:32; Start 10/01/16 at 09:00 Tamsulosin HCl (Flomax) 0.4 mg HS PO Last administered on 10/01/16 20:25; Start 10/01/16 at 21:00 Insulin Aspart (Novolog) 0-7 UNITS TIDWMEALS SQ ; Start 10/01/16 at 12:00 Dextrose 12.5 gm 12.5 gm PRN Q15MIN PRN IV SEE COMMENTS; Start 10/01/16 at 08: 15 Magnesium Sulfate/ Dextrose (Magnesium Sulfate PREMIX 2GM) 50 ml @ 25 mls/hr PRN DAILY PRN IV for Mag < 1.7 on am labs; Start 10/01/16 at 09:30 Iohexol (Omnipaque 240 Mg/ml) 30 ml 1X ONCE PO ; Start 10/01/16 at 10:00; Stop 10/01/16 at 10:01; Status DC Iohexol (Omnipaque 300 Mg/ml) 75 ml 1X ONCE IV Last administered on 10/01/16 13:17; Start 10/01/16 at 10:00; Stop 10/01/16 at 10:01; Status DC Info (Do NOT chart on this entry -- for MONITORING) 1 each PRN DAILY PRN MC SEE COMMENTS; Start 10/01/16 at 10:00; Stop 10/03/16 at 09:59 Info 1 each 1 each PRN DAILY PRN MC SEE COMMENTS; Start 10/01/16 at 16:30 Sodium Chloride (Iv Sodium Chloride 0.9% 1000ml Bag) 1,000 ml @ 1,000 mls/hr Q1H PRN IV hypotension; Start 10/02/16 at 07:51; Stop 10/02/16 at 13:50 Diphenhydramine HCl (Benadryl) 25 mg 1X PRN PRN IV ITCHING; Start 10/02/16 at 08:00; Stop 10/03/16 at 07:59 Diphenhydramine HCl (Benadryl) 25 mg 1X PRN PRN IV ITCHING; Start 10/02/16 at 08:00; Stop 10/03/16 at 07:59 Labetalol HCl 10 mg 10 mg PRN Q1HR PRN IVP SBP > 180; Start 10/02/16 at 08:00; Stop 10/03/16 at 07:59 Sodium Chloride (Iv Sodium Chloride 0.9% 1000ml Bag) 1,000 ml @ 400 mls/hr Q2H30M PRN IV PATENCY; Start 10/02/16 at 07:51; Stop 10/02/16 at 19:50 Info (PHARMACY MONITORING -- do not chart) 1 each PRN DAILY PRN MC SEE COMMENTS ; Start 10/02/16 at 08:00; Status UNV Lidocaine HCl (Xylocaine-Mpf 1% Vial) 1 ml 1X ONCE ID Last administered on 08:28; Start 10/02/16 at 08:00; Stop 10/02/16 at 08:01; Status DC Insulin Detemir (Levemir) 20 units DAILY08 SQ ; Start 10/02/16 at 10:00 Ondansetron HCl (Zofran) 4 mg 1X STAT IV Last administered on 10/02/16 09:35 ; Start 10/02/16 at 09:25; Stop 10/02/16 at 09:28; Status DC Active Scripts Active Reported Humulin 70-30 Vial (Hum Insulin Nph/Reg Insulin Hm) 100 Unit/1 Ml Vial 20 Unit SQ BIDWMEALS Gabapentin 100 Mg Capsule 100 Mg PO BID Ranexa (Ranolazine) 500 Mg Tab.er.12h 1 Tab PO DAILY Phoslo (Calcium Acetate) 667 Mg Capsule 667 Mg PO TIDWMEALS Polyethylene Glycol 3350 255 Gm Powder 17 Gm PO DAILY PRN Anoro Ellipta 62.5-25 Mcg Inh (Umeclidinium Brm/Vilanterol Tr) 1 Each Disk.w.dev 1 Each IH DAILY Clopidogrel (Clopidogrel Bisulfate) 75 Mg Tablet 1 Tab PO DAILY Percocet 7.5-325 Mg Tablet (Oxycodone/Acetaminophen) 1 Each Tablet 1 Tab PO TID PRN Dialyvite 800 Tablet (Folic Acid/Vitamin B Comp W-C) 0.8 Mg Tablet 0.8 Mg PO DAILY NITROGLYCERIN SubLingual (Nitroglycerin) 0.4 Mg Tab.subl 0.4 Mg SL PRN Allopurinol 300 Mg Tablet 300 Mg PO DAILY Pepcid (Famotidine) 20 Mg Tablet 20 Mg PO QHS Lanoxin (Digoxin) 125 Mcg Tablet 125 Mcg PO DAILY Flomax (Tamsulosin Hcl) 0.4 Mg Cap.er.24h 0.4 Mg PO HS Aspirin 81 Mg Tab.chew 81 Mg PO DAILY Vitals/I & O Vital Sign - Last 24 Hours 10/01/16 10/01/16 10/01/16 10/01/16 11:15 11:17 14:37 15:15 Temp 97.9 98.3 97.9 98.3 Pulse 80 86 Resp 18 16 B/P 103/85 142/72 Pulse Ox 96 96 97 O2 Delivery Nasal Cannula Nasal Cannula Nasal Cannula Nasal Cannula O2 Flow Rate 2.0 2.0 2.0 2.0 10/01/16 10/01/16 10/01/16 10/01/16 19:00 20:00 20:25 20:55 Temp 98.7 98.7 Pulse 94 Resp 16 B/P 139/73 Pulse Ox 90 90 90 O2 Delivery Nasal Cannula Nasal Cannula Nasal Cannula Nasal Cannula O2 Flow Rate 2.0 2.0 2.0 2.0 10/01/16 10/02/16 10/02/16 10/02/16 23:00 03:41 07:50 07:59 Temp 98.8 97.6 98.8 97.6 Pulse 84 88 Resp 16 18 B/P 135/72 135/74 Pulse Ox 92 92 92 92 O2 Delivery Nasal Cannula Nasal Cannula Nasal Cannula Nasal Cannula O2 Flow Rate 2.0 2.0 2.0 2.0 10/02/16 10/02/16 10/02/16 08:00 08:29 08:32 Pulse 88 B/P 135/74 Pulse Ox 92 O2 Delivery Nasal Cannula Nasal Cannula O2 Flow Rate 2.0 2.0 Intake and Output 10/01/16 10/01/16 10/02/16 15:00 23:00 07:00 Intake Total 360 ml 50 ml 255 ml Output Total 1 ml 0 ml Balance 360 ml 49 ml 255 ml LEXI ALTAMIRANO MD Oct 02, 2016 09:56
[2016-10-02] MEDS: INSULIN DETEMIR 300 UNITS/3 ML INSULN.PEN. SQ SCH (10:00)
--- NOTE | 2016-10-02 10:12 | PDOC ---
LESLEE CENTENO HORTICULTURAL NURSERY ASSISTANT 10/02/16 1012: SURGICAL PROGRESS NOTE Subjective persistent abdominal pain and nausea Vital Signs Vital Signs Date Time Temp Pulse Resp B/P Pulse Ox O2 Delivery O2 Flow Rate FiO2 10/02/16 08:32 88 135/74 10/02/16 08:29 92 Nasal Cannula 2.0 10/02/16 07:50 97.6 18 97.6 I&O Intake and Output 10/02/16 07:00 Intake Total 665 ml Output Total 1 ml Balance 664 ml Intake Oral 665 ml Output Urine Total 0 ml Emesis 1 ml General: Alert, Oriented X3, Cooperative, No acute distress Abdomen: Soft, Other (tender to luq, llq) Labs Laboratory Tests Test 09/30/16 20:40 10/01/16 00:10 10/01/16 00:45 10/01/16 01:45 White Blood Count 15.9x10^3/uL (4.0-11.0) Red Blood Count 3.82x10^6/uL (4.30-5.70) Hemoglobin 12.1g/dL (13.0-17.5) Hematocrit 38.3% (39.0-53.0) Mean Corpuscular Volume 100fL (79-100) Mean Corpuscular Hemoglobin 32pg (25-35) Mean Corpuscular Hemoglobin Concent 32g/dL (31-37) Red Cell Distribution Width 15.8% (11.5-14.5) Platelet Count 130x10^3/uL (140-400) Neutrophils (%) (Auto) 87% (31-73) Lymphocytes (%) (Auto) 6% (24-48) Monocytes (%) (Auto) 6% (0-9) Eosinophils (%) (Auto) 0% (0-3) Basophils (%) (Auto) 1% (0-3) Neutrophils # (Auto) 13.8x10^3uL (1.8-7.7) Lymphocytes # (Auto) 0.9x10^3/uL (1.0-4.8) Monocytes # (Auto) 1.0x10^3/uL (0.0-1.1) Eosinophils # (Auto) 0.1x10^3/uL (0.0-0.7) Basophils # (Auto) 0.1x10^3/uL (0.0-0.2) Segmented Neutrophils % 87% (35-66) Band Neutrophils % 3% (0-9) Lymphocytes % 3% (24-48) Monocytes % 6% (0-10) Eosinophils % 1% (0-5) Platelet Estimate Decreased (ADEQUATE) Anisocytosis Slight Sodium Level 138mmol/L (136-145) Potassium Level 4.4mmol/L (3.5-5.1) Chloride Level 100mmol/L (98-107) Carbon Dioxide Level 23mmol/L (21-32) Anion Gap 15 (6-14) Blood Urea Nitrogen 23mg/dL (8-26) Creatinine 4.5mg/dL (0.7-1.3) Estimated GFR (Cockcroft-Gault) 13.1 Glucose Level 187mg/dL (70-99) Lactic Acid Level 2.5mmol/L (0.4-2.0) 4.0mmol/L (0.4-2.0) Calcium Level 8.6mg/dL (8.5-10.1) Total Bilirubin 0.8mg/dL (0.2-1.0) Direct Bilirubin 0.3mg/dL (0.0-0.2) Aspartate Amino Transf (AST/SGOT) 15U/L (15-37) Alanine Aminotransferase (ALT/SGPT) 9U/L (16-63) Alkaline Phosphatase 141U/L (46-116) Troponin I Quantitative 0.101ng/mL (0.000-0.055) 0.100ng/mL (0.000-0.055) NO-Nhk-G-Type Natriuretic Peptide > 73196fc/mL (0-124) Total Protein 6.8g/dL (6.4-8.2) Albumin 3.1g/dL (3.4-5.0) Lipase 51U/L (73-393) Glucose (Fingerstick) 138mg/dL (70-99) Nasal Screen MRSA (PCR) Negative (Negative) Test 10/01/16 07:33 10/01/16 07:45 10/01/16 10:37 10/01/16 16:26 Glucose (Fingerstick) 185mg/dL (70-99) 196mg/dL (70-99) 193mg/dL (70-99) White Blood Count 21.3x10^3/uL (4.0-11.0) Red Blood Count 4.22x10^6/uL (4.30-5.70) Hemoglobin 13.4g/dL (13.0-17.5) Hematocrit 41.5% (39.0-53.0) Mean Corpuscular Volume 98fL (79-100) Mean Corpuscular Hemoglobin 32pg (25-35) Mean Corpuscular Hemoglobin Concent 32g/dL (31-37) Red Cell Distribution Width 15.9% (11.5-14.5) Platelet Count 169x10^3/uL (140-400) Neutrophils (%) (Auto) 90% (31-73) Lymphocytes (%) (Auto) 3% (24-48) Monocytes (%) (Auto) 7% (0-9) Eosinophils (%) (Auto) 0% (0-3) Basophils (%) (Auto) 0% (0-3) Neutrophils # (Auto) 19.1x10^3uL (1.8-7.7) Lymphocytes # (Auto) 0.6x10^3/uL (1.0-4.8) Monocytes # (Auto) 1.5x10^3/uL (0.0-1.1) Eosinophils # (Auto) 0.0x10^3/uL (0.0-0.7) Basophils # (Auto) 0.1x10^3/uL (0.0-0.2) Sodium Level 141mmol/L (136-145) Potassium Level 4.9mmol/L (3.5-5.1) Chloride Level 100mmol/L (98-107) Carbon Dioxide Level 23mmol/L (21-32) Anion Gap 18 (6-14) Blood Urea Nitrogen 32mg/dL (8-26) Creatinine 5.1mg/dL (0.7-1.3) Estimated GFR (Cockcroft-Gault) 11.4 Glucose Level 193mg/dL (70-99) Calcium Level 8.7mg/dL (8.5-10.1) Lactate Dehydrogenase 190U/L (85-227) Troponin I Quantitative 0.166ng/mL (0.000-0.055) Test 10/02/16 07:15 Hemoglobin 12.5g/dL (13.0-17.5) Sodium Level 139mmol/L (136-145) Potassium Level 5.1mmol/L (3.5-5.1) Chloride Level 98mmol/L (98-107) Carbon Dioxide Level 25mmol/L (21-32) Anion Gap 16 (6-14) Blood Urea Nitrogen 52mg/dL (8-26) Creatinine 6.7mg/dL (0.7-1.3) Estimated GFR (Cockcroft-Gault) 8.3 Glucose Level 210mg/dL (70-99) Lactic Acid Level 2.3mmol/L (0.4-2.0) Calcium Level 8.4mg/dL (8.5-10.1) Phosphorus Level 6.2mg/dL (2.6-4.7) Magnesium Level 1.7mg/dL (1.8-2.4) Albumin 2.5g/dL (3.4-5.0) Laboratory Tests Test 10/01/16 10:37 10/01/16 16:26 10/02/16 07:15 Glucose (Fingerstick) 196mg/dL (70-99) 193mg/dL (70-99) Hemoglobin 12.5g/dL (13.0-17.5) Sodium Level 139mmol/L (136-145) Potassium Level 5.1mmol/L (3.5-5.1) Chloride Level 98mmol/L (98-107) Carbon Dioxide Level 25mmol/L (21-32) Anion Gap 16 (6-14) Blood Urea Nitrogen 52mg/dL (8-26) Creatinine 6.7mg/dL (0.7-1.3) Estimated GFR (Cockcroft-Gault) 8.3 Glucose Level 210mg/dL (70-99) Lactic Acid Level 2.3mmol/L (0.4-2.0) Calcium Level 8.4mg/dL (8.5-10.1) Phosphorus Level 6.2mg/dL (2.6-4.7) Magnesium Level 1.7mg/dL (1.8-2.4) Albumin 2.5g/dL (3.4-5.0) Problem List Problems Medical Problems: (1) CAD (coronary artery disease) Status: Acute (2) ESRD (end stage renal disease) on dialysis Status: Acute (3) Periumbilical abdominal pain Status: Acute Assessment/Plan abdominal pain, nausea GI consult pending Problems: BEATA HARDY MD 10/02/16 3006: SURGICAL PROGRESS NOTE Assessment/Plan Pt seen and examined. Agree with Ms. Centeno's note Pt with c/o persistent pain and nausea abd soft, mild TTP d/w Dr. Atkins, agree with GI w/u Problems: LESLEE CENTENO APRN Oct 02, 2016 10:12 BEATA HARDY MD Oct 02, 2016 17:55
[2016-10-02] MEDS ORDERED: ALBUMIN HUMAN 25% 200 ML IV STA (10:41)
--- NOTE | 2016-10-02 10:55 | PDOC2 ---
GI CONSULT Reason For Consult: Abdominal pain, n/v HPI: HPI: 65 y/o male w/ PMH significant for colon cancer in 2014 s/p resection and chemo , GERD on H2 indra w/ previous EGD in 2013, constipation, and recent en bloc resection of right retroperitoneal mass including right kidney, excisional biopsy of small bowel mesenteric mass and colon mass on 08/25/16 - pathology benign. Seen this morning during dialysis. He reports about 3 weeks of worsening abdominal pain aggravated sometimes by drinking cold liquids and sometimes by eating. Additionally has n/v daily w/ decreased appetite. Heartburn isn't controlled. CT yesterday showed mild distention of the ileum w/ o a transition point to suggest obstruction. Also noted were bilateral pleural effusions and 2 regions of soft tissue density in the abdominal subcutaneous fat may correspond with subcutaneous injections or ecchymoses. PMH: PMH: per chart - A Fib, CAD, CHF, HTN, DM, COPD, gout, valve insufficiency, pulm HTN , colon cancer s/p resection and chemo, BRENDA, ESRD on HD, cholecystectomy, cataract extraction, defibrillator FH: Family History: Cancer Social History: Smoke: Quit ALCOHOL: none Drugs: None ROS: GEN: Denies fevers, chills, sweats HEENT: Denies blurred vision, sore throat CV: Denies chest pain RESP: Denies shortness of air, cough GI: Per HPI : Denies hematuria, dysuria ENDO: Denies weight changes NEURO: Denies confusion, dizziness MSK: Denies weakness, joint pain/swelling SKIN: Denies jaundice, pruritus VItals: Vitals: Vital Signs Date Time Temp Pulse Resp B/P Pulse Ox O2 Delivery O2 Flow Rate FiO2 10/02/16 08:32 88 135/74 10/02/16 08:29 92 Nasal Cannula 2.0 10/02/16 07:50 97.6 18 97.6 Labs: Labs: Laboratory Tests Test 10/01/16 10:37 10/01/16 16:26 10/02/16 07:15 Glucose (Fingerstick) 196mg/dL (70-99) 193mg/dL (70-99) Hemoglobin 12.5g/dL (13.0-17.5) Sodium Level 139mmol/L (136-145) Potassium Level 5.1mmol/L (3.5-5.1) Chloride Level 98mmol/L (98-107) Carbon Dioxide Level 25mmol/L (21-32) Anion Gap 16 (6-14) Blood Urea Nitrogen 52mg/dL (8-26) Creatinine 6.7mg/dL (0.7-1.3) Estimated GFR (Cockcroft-Gault) 8.3 Glucose Level 210mg/dL (70-99) Lactic Acid Level 2.3mmol/L (0.4-2.0) Calcium Level 8.4mg/dL (8.5-10.1) Phosphorus Level 6.2mg/dL (2.6-4.7) Magnesium Level 1.7mg/dL (1.8-2.4) Albumin 2.5g/dL (3.4-5.0) Allergies: Coded Allergies: adhesive (Verified Allergy, Severe, STERI STRIPS- PEELING SKIN, 08/25/16) STERI STRIPS Medications: Current Medications Medications (Trade) Dose Ordered Sig/Andrew Route PRN Reason Start Time Stop Time Status Last Admin Dose Admin Famotidine (Pepcid) 20 mg QHS PO 10/01/16 21:00 10/01/16 20:25 Tamsulosin HCl (Flomax) 0.4 mg HS PO 10/01/16 21:00 10/01/16 20:25 Lidocaine HCl (Xylocaine-Mpf 1% Vial) 1 ml 1X ONCE ID 10/02/16 08:00 10/02/16 08:01 DC 10/02/16 08:28 Ondansetron HCl (Zofran) 4 mg 1X STAT IV 10/02/16 09:25 10/02/16 09:28 DC 10/02/16 09:35 Imaging: Imaging: CT A/P w/o contrast 09/30/16 IMPRESSION 1. Tiny pleural effusions bilaterally. Previously there is a tiny pleural effusion on the left. 2. Right nephrectomy and atrophic left kidney. 3. Bilateral abdominal wall hematoma below the umbilicus the larger is on the right and measures 5.0 by 2.4 centimeters. Chest CTA 10/01/16 IMPRESSION: 1. The aorta is not well opacified but there is no evidence of dissection or aneurysm. 2. No pulmonary embolism. 3. Moderate cardiomegaly. 4. Small moderate bilateral pleural effusions. 5. Groundglass infiltrates in both upper lobes most likely represent pulmonary edema. Correlate for evidence of infection to exclude pneumonia. CT A/P w/ contrast 10/01/16 IMPRESSION: 1. Mild distention of the ileum without a transition point to suggest obstruction. Correlate for enteritis. No clear acute processes identified. 2. 2 regions of soft tissue density in the abdominal subcutaneous fat may correspond with subcutaneous injections or ecchymoses. Correlate clinically. 3. Small right inguinal hernia containing only fat. 4. Bilateral pleural effusions. Moderate cardiomegaly. CXR 10/02/16 IMPRESSION: 1. Mild retrocardiac atelectasis or pneumonia. 2. Mild cardiomegaly. PE: GEN: NAD HEENT: Atraumatic, PERRL LUNGS: decreased anteriorly HEART: S1S2 ABD: BS quiet, diffusely tender to light palpation, palpable superficial masses bilaterally below umbilicus w/ discoloration SKIN: No rashes, no jaundice NEURO/PSYCH: A & O 3 A/P: A/P: Abdominal pain w/ n/v -surgical history as above -CT as above w/ mild distention of the ileum w/o a transition H/o GERD -uncontrolled w/ H2 indra H/o constipation -on Miralax ESRD on HD, DM, CHF H/o colon cancer s/p resection, chemo -- Abdominal pain w/ extensive medical/surgical history, constipation, GERD. Will switch to PPI, increase Miralax, and add Amitiza. If ineffective, consider SBS. Likely has component of gastroparesis as well. KARIS CHAIREZ Oct 02, 2016 10:55
[2016-10-02] MEDS: LUBIPROSTONE 8 MCG CAPSULE PO SCH ×2 (12:00→17:00)
[2016-10-02] MEDS: PANTOPRAZOLE 40 MG TABLET. PO SCH (12:00)
[2016-10-02] MEDS: POLYETHYLENE GLYCOL 3350 17 GM PACKET. PO SCH ×2 (12:00→20:37)
[2016-10-02] MEDS ORDERED: ONDANSETRON PF 4 MG/2 ML VIAL. IV PRN (13:15)
[2016-10-02 14:49] VITALS: BP 128/63
[2016-10-02] MEDS: ONDANSETRON PF 4 MG/2 ML VIAL. IV PRN (17:49)
[2016-10-02 19:00] VITALS: BP 139/70
--- NOTE | 2016-10-02 20:03 | CONS ---
DATE OF CONSULTATION: HISTORY OF PRESENT ILLNESS: This is a 65-year-old white male who came into the Emergency Room because of severe abdominal pain. This was associated with nausea and vomiting. He does have end-stage renal disease and is receiving dialysis. He denied any diarrhea. He had recently undergone a block resection of right retroperitoneal mass including right kidney. There was also excisional biopsy of small bowel mesenteric mass and colon mass on 08/25/2016. 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 He follows up with Dr. Matthews. He knows that he has low EF. He has had no recent chest pain. The pain is all in his abdomen. He has had no significant shortness of breath or swelling of his legs. MEDICATIONS AT HOME: 1. Allopurinol 300 mg a day. 2. Aspirin 81 mg a day. 3. Calcium acetate 667 mg 3 times a day. 4. Plavix 75 mg a day. 5. Lanoxin 0.125 mg a day. 6. Famotidine 20 mg at night. 7. Folic acid. 8. Gabapentin. 9. NovoLog insulin 20 units twice a day with meals. 10. Oxycodone. 11. Polyethylene glycol. 12. Ranexa 500 mg every 12 hours. 13. Tamsulosin 0.4 mg a day. PHYSICAL EXAMINATION: GENERAL: He was able to lie flat. He was in severe abdominal pain. It was time for his medication. I did go and informed the nurse that he needed a pain injection. VITAL SIGNS: He was afebrile. The heart rate was 90 per minute and regular. The blood pressure is 130/70. LUNGS: Clinically clear. HEART: The heart sounds are normal with no murmur or gallop. DIAGNOSTIC DATA: There is no chest x-ray taken during this hospitalization. However, a CT chest showed no evidence of pulmonary embolism. There is moderate cardiomegaly. There were small to moderate bilateral pleural effusions. Ground glass infiltrates in both upper lobes, most likely representing pulmonary edema. An echocardiogram was performed. The left ventricle was mildly enlarged to 5.89 cm. There is severe systolic dysfunction with the ejection fraction of 10-15%. There is a grade 3 diastolic dysfunction. There is moderate mitral regurgitation. He had moderate pulmonary hypertension with right ventricular systolic pressure of 52 mmHg. The hemoglobin was normal at 12 grams percent. The creatinine was 5.1. The troponin was mildly elevated to 0.166. IMPRESSION: 1. Severe abdominal pain status post recent laparotomy. 2. Severe systolic and diastolic dysfunction of the left ventricle with moderate mitral regurgitation and moderate pulmonary hypertension. 3. Mild elevation of the troponin. It is probably due to the renal failure and pulmonary vascular congestion that would be expected in a patient with these echocardiographic findings. The BNP was significantly elevated to more than 35,000. I plan to talk to the fast food worker tomorrow. His blood pressure would allow more fluid to be taken out. He has had recent surgery. His weight is probably much lower now and thus this would need to be decreased in his dialysis record. The abdominal discomfort that he is experiencing could be due to hepatic congestion. I would like more fluid to be removed tomorrow with his dialysis and see how his symptoms respond. Thank you, Dr. Calzada for asking us to see him. LISSETTE WEST MD DR: AYLIN/macho JOB#: [id number] / [id number]
[2016-10-02] MEDS: TAMSULOSIN 0.4 MG CAP.ER.24H. PO SCH (20:37)
--- NOTE | 2016-10-02 22:10 | PDOC ---
Provider Note Provider Note Covering for Dr. Matthews. Discussed with the nurse with [employer]. An attempt was made to remove fluid but the patient did not tolerate it He continues to have abdominal pain. LISSETTE WEST MD Oct 02, 2016 22:09
--- NOTE | 2016-10-02 22:14 | PDOC ---
Provider Note Provider Note Covering for Dr. Matthews. Atrial flutter fib persists. Today no distinct flutter waves are seen. Her heart rate is relatively slow at 50 bpm. She occasionally drops in the high 40s. This being the case the sotalol was discontinued. She had only one dose of 80 mg this morning. The heart rate response is relatively slow but I believe it's not slow enough to consider a permanent pacemaker at this time. She will probably need one in the future. Dr Matthews will be in tomorrow and will decide about anticoagulation. LISSETTE WEST MD Oct 02, 2016 22:14
[2016-10-02 23:00] VITALS: BP 132/73
[2016-10-03 03:00] VITALS: BP 138/77
[2016-10-03 05:34] LABS: CALCIUM 8.6 mg/dL (8.5-10.1); CREATININE 4.7 mg/dL (0.7-1.3); GFR 12.5; PHOSPHORUS 4.8 mg/dL (2.6-4.7); POTASSIUM 4.3 mmol/L (3.5-5.1)
[2016-10-03] MEDS: PANTOPRAZOLE 40 MG TABLET. PO SCH (07:30)
[2016-10-03 07:43] VITALS: BP 141/68
[2016-10-03] MEDS: INSULIN DETEMIR 300 UNITS/3 ML INSULN.PEN. SQ SCH (08:00)
[2016-10-03] MEDS: CALCIUM ACETATE 667 MG CAPSULE PO SCH ×3 (08:00→17:00)
[2016-10-03] MEDS: INSULIN ASPART 300 UNITS/3 ML INSULN.PEN SQ SCH ×3 (08:00→17:00)
[2016-10-03] MEDS: LUBIPROSTONE 8 MCG CAPSULE PO SCH ×2 (08:00→17:00)
[2016-10-03] MEDS: ONDANSETRON PF 4 MG/2 ML VIAL. IV PRN (08:24)
--- NOTE | 2016-10-03 08:54 | PDOC ---
LESLEE CENTENO LOMBARDI DEVELOPER 10/03/16 0854: SURGICAL PROGRESS NOTE Subjective taking clears a little better still with nausea and pain having diarrhea now Vital Signs Vital Signs Date Time Temp Pulse Resp B/P Pulse Ox O2 Delivery O2 Flow Rate FiO2 10/03/16 08:00 Nasal Cannula 2.0 10/03/16 07:43 97.7 84 16 141/68 91 97.7 I&O Intake and Output 10/03/16 07:00 Intake Total 100 ml Output Total 0 ml Balance 100 ml Intake Oral 100 ml Output Urine Total 0 ml # Bowel Movements 1 General: Alert, Oriented X3, Cooperative, No acute distress Abdomen: Soft, Other (tender lower abdomen ) Labs Laboratory Tests Test 10/01/16 10:37 10/01/16 16:26 10/02/16 07:15 10/02/16 10:00 Glucose (Fingerstick) 196mg/dL (70-99) 193mg/dL (70-99) 132mg/dL (70-99) Hemoglobin 12.5g/dL (13.0-17.5) Sodium Level 139mmol/L (136-145) Potassium Level 5.1mmol/L (3.5-5.1) Chloride Level 98mmol/L (98-107) Carbon Dioxide Level 25mmol/L (21-32) Anion Gap 16 (6-14) Blood Urea Nitrogen 52mg/dL (8-26) Creatinine 6.7mg/dL (0.7-1.3) Estimated GFR (Cockcroft-Gault) 8.3 Glucose Level 210mg/dL (70-99) Lactic Acid Level 2.3mmol/L (0.4-2.0) Calcium Level 8.4mg/dL (8.5-10.1) Phosphorus Level 6.2mg/dL (2.6-4.7) Magnesium Level 1.7mg/dL (1.8-2.4) Albumin 2.5g/dL (3.4-5.0) Test 10/02/16 12:58 10/02/16 17:52 10/03/16 04:54 10/03/16 08:30 Glucose (Fingerstick) 133mg/dL (70-99) 188mg/dL (70-99) 166mg/dL (70-99) Sodium Level 140mmol/L (136-145) Potassium Level 4.3mmol/L (3.5-5.1) Chloride Level 97mmol/L (98-107) Carbon Dioxide Level 28mmol/L (21-32) Anion Gap 15 (6-14) Blood Urea Nitrogen 44mg/dL (8-26) Creatinine 4.7mg/dL (0.7-1.3) Estimated GFR (Cockcroft-Gault) 12.5 Glucose Level 179mg/dL (70-99) Lactic Acid Level 1.5mmol/L (0.4-2.0) Calcium Level 8.6mg/dL (8.5-10.1) Phosphorus Level 4.8mg/dL (2.6-4.7) Magnesium Level 1.9mg/dL (1.8-2.4) Albumin 3.0g/dL (3.4-5.0) Laboratory Tests Test 10/02/16 10:00 10/02/16 12:58 10/02/16 17:52 10/03/16 04:54 Glucose (Fingerstick) 132mg/dL (70-99) 133mg/dL (70-99) 188mg/dL (70-99) Sodium Level 140mmol/L (136-145) Potassium Level 4.3mmol/L (3.5-5.1) Chloride Level 97mmol/L (98-107) Carbon Dioxide Level 28mmol/L (21-32) Anion Gap 15 (6-14) Blood Urea Nitrogen 44mg/dL (8-26) Creatinine 4.7mg/dL (0.7-1.3) Estimated GFR (Cockcroft-Gault) 12.5 Glucose Level 179mg/dL (70-99) Lactic Acid Level 1.5mmol/L (0.4-2.0) Calcium Level 8.6mg/dL (8.5-10.1) Phosphorus Level 4.8mg/dL (2.6-4.7) Magnesium Level 1.9mg/dL (1.8-2.4) Albumin 3.0g/dL (3.4-5.0) Test 10/03/16 08:30 Glucose (Fingerstick) 166mg/dL (70-99) Problem List Problems Medical Problems: (1) CAD (coronary artery disease) Status: Acute (2) ESRD (end stage renal disease) on dialysis Status: Acute (3) Periumbilical abdominal pain Status: Acute Assessment/Plan now with diarrhea, Gi following clears may need sbft Problems: BEATA HARDY MD 10/03/16 0948: SURGICAL PROGRESS NOTE Assessment/Plan Pt seen and examined. Agree with Ms. Centeno's note Pt feels somewhat better today abd soft, NTTP passing loose stools cont w/u per GI Problems: LESLEE CENTENO APRN Oct 03, 2016 08:54 BEATA HARDY MD Oct 03, 2016 09:48
[2016-10-03] MEDS: POLYETHYLENE GLYCOL 3350 17 GM PACKET. PO SCH ×2 (09:00→21:00)
[2016-10-03] MEDS: RANOLAZINE 500 MG TAB.ER.12H PO SCH (09:00)
[2016-10-03] MEDS: GABAPENTIN 100 MG CAPSULE. PO SCH ×2 (09:00→21:35)
[2016-10-03 10:51] VITALS: BP 118/61
[2016-10-03] MEDS ORDERED: IV NORMAL SALINE 1000ML BAG 1,000 ML IV SCH (11:00)
--- NOTE | 2016-10-03 11:42 | PDOC ---
SUBJECTIVE Subjective still not feeling good, nausea and vomiting, had diarrhea this AM, OBJECTIVE Objective VSS Vital Signs Vital Signs Date Time Temp Pulse Resp B/P Pulse Ox O2 Delivery O2 Flow Rate FiO2 10/03/16 10:51 97.9 78 16 118/61 100 Nasal Cannula 2.0 97.9 10/03/16 08:00 Nasal Cannula 2.0 10/03/16 07:43 97.7 84 16 141/68 91 Room Air 97.7 10/03/16 03:00 97.6 88 18 138/77 99 Nasal Cannula 2.0 97.6 10/02/16 23:00 98.1 86 20 132/73 98 Nasal Cannula 2.0 98.1 10/02/16 21:08 91 Nasal Cannula 2.0 10/02/16 20:38 91 Nasal Cannula 2.0 10/02/16 20:00 Nasal Cannula 2.0 10/02/16 19:00 98.1 73 20 139/70 96 Nasal Cannula 2.0 98.1 10/02/16 14:49 98.1 89 20 128/63 91 Nasal Cannula 2.0 98.1 I & O Intake and Output 10/03/16 07:00 Intake Total 100 ml Output Total 0 ml Balance 100 ml Intake Oral 100 ml Output Urine Total 0 ml # Bowel Movements 1 PHYSICAL EXAM Physical Exam mild diffuse abd tenderness +BS lungs clear upper lobes ASSESSMENT/PLAN Assessment/Plan 1- abd pain / N/V now diarrhea sent stool for c.diff no bowel obstruction, continue supportive plans, careful hydration 2- 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 3-Leukocytosis - suspect c.diff will start flagyl IV due to nausea 4- ESRD on HD 5- Hx of [place] 6- left foot ulcer followed by wound care 7-DM ok continue present insulin Problems: COMMENT Lab Laboratory Tests Test 10/02/16 12:58 10/02/16 17:52 10/03/16 04:54 10/03/16 08:30 Glucose (Fingerstick) 133mg/dL (70-99) 188mg/dL (70-99) 166mg/dL (70-99) Sodium Level 140mmol/L (136-145) Potassium Level 4.3mmol/L (3.5-5.1) Chloride Level 97mmol/L (98-107) Carbon Dioxide Level 28mmol/L (21-32) Anion Gap 15 (6-14) Blood Urea Nitrogen 44mg/dL (8-26) Creatinine 4.7mg/dL (0.7-1.3) Estimated GFR (Cockcroft-Gault) 12.5 Glucose Level 179mg/dL (70-99) Lactic Acid Level 1.5mmol/L (0.4-2.0) Calcium Level 8.6mg/dL (8.5-10.1) Phosphorus Level 4.8mg/dL (2.6-4.7) Magnesium Level 1.9mg/dL (1.8-2.4) Albumin 3.0g/dL (3.4-5.0) RYLEE JEROME MD Oct 03, 2016 11:42
[2016-10-03] MEDS: IV NORMAL SALINE 1000ML BAG 1,000 ML IV SCH ×2 (11:51→21:28)
[2016-10-03] MEDS: METRONIDAZOLE 500mg PREMIX 100 ML IV SCH ×2 (14:00→21:28)
[2016-10-03 15:21] VITALS: BP 122/62
--- NOTE | 2016-10-03 15:53 | PDOC ---
PROGRESS NOTES Subjective Subjective Pt feels a little better today. No chest pains, no dyspnea at this time. No confusion today Objective Objective Vital Signs Date Time Temp Pulse Resp B/P Pulse Ox O2 Delivery O2 Flow Rate FiO2 10/03/16 15:21 97.7 81 14 122/62 100 Nasal Cannula 2.0 97.7 Intake and Output 10/03/16 07:00 Intake Total 100 ml Output Total 0 ml Balance 100 ml Intake Oral 100 ml Output Urine Total 0 ml # Bowel Movements 1 Physical Exam Physical Exam No changes in cardiac exam Assessment Assessment Pt compensated but is not able to take PO intake yet. Continue with IV fluids until able to resume the PO route. Problems Medical Problems: (1) CAD (coronary artery disease) Status: Acute (2) ESRD (end stage renal disease) on dialysis Status: Acute (3) Periumbilical abdominal pain Status: Acute Comment Review of Relevant I have reviewed the following items nicole (where applicable) has been applied. Labs Laboratory Tests Test 10/01/16 16:26 10/02/16 07:15 10/02/16 10:00 10/02/16 12:58 Glucose (Fingerstick) 193mg/dL (70-99) 132mg/dL (70-99) 133mg/dL (70-99) Hemoglobin 12.5g/dL (13.0-17.5) Sodium Level 139mmol/L (136-145) Potassium Level 5.1mmol/L (3.5-5.1) Chloride Level 98mmol/L (98-107) Carbon Dioxide Level 25mmol/L (21-32) Anion Gap 16 (6-14) Blood Urea Nitrogen 52mg/dL (8-26) Creatinine 6.7mg/dL (0.7-1.3) Estimated GFR (Cockcroft-Gault) 8.3 Glucose Level 210mg/dL (70-99) Lactic Acid Level 2.3mmol/L (0.4-2.0) Calcium Level 8.4mg/dL (8.5-10.1) Phosphorus Level 6.2mg/dL (2.6-4.7) Magnesium Level 1.7mg/dL (1.8-2.4) Albumin 2.5g/dL (3.4-5.0) Test 10/02/16 17:52 10/03/16 04:54 10/03/16 08:30 10/03/16 11:56 Glucose (Fingerstick) 188mg/dL (70-99) 166mg/dL (70-99) 170mg/dL (70-99) Sodium Level 140mmol/L (136-145) Potassium Level 4.3mmol/L (3.5-5.1) Chloride Level 97mmol/L (98-107) Carbon Dioxide Level 28mmol/L (21-32) Anion Gap 15 (6-14) Blood Urea Nitrogen 44mg/dL (8-26) Creatinine 4.7mg/dL (0.7-1.3) Estimated GFR (Cockcroft-Gault) 12.5 Glucose Level 179mg/dL (70-99) Lactic Acid Level 1.5mmol/L (0.4-2.0) Calcium Level 8.6mg/dL (8.5-10.1) Phosphorus Level 4.8mg/dL (2.6-4.7) Magnesium Level 1.9mg/dL (1.8-2.4) Albumin 3.0g/dL (3.4-5.0) Laboratory Tests Test 10/02/16 17:52 10/03/16 04:54 10/03/16 08:30 10/03/16 11:56 Glucose (Fingerstick) 188mg/dL (70-99) 166mg/dL (70-99) 170mg/dL (70-99) Sodium Level 140mmol/L (136-145) Potassium Level 4.3mmol/L (3.5-5.1) Chloride Level 97mmol/L (98-107) Carbon Dioxide Level 28mmol/L (21-32) Anion Gap 15 (6-14) Blood Urea Nitrogen 44mg/dL (8-26) Creatinine 4.7mg/dL (0.7-1.3) Estimated GFR (Cockcroft-Gault) 12.5 Glucose Level 179mg/dL (70-99) Lactic Acid Level 1.5mmol/L (0.4-2.0) Calcium Level 8.6mg/dL (8.5-10.1) Phosphorus Level 4.8mg/dL (2.6-4.7) Magnesium Level 1.9mg/dL (1.8-2.4) Albumin 3.0g/dL (3.4-5.0) Medications Current Medications Hydromorphone HCl (Dilaudid) 0.5 mg PRN Q1HR PRN IV SEVERE PAIN Last administered on 10/01/16 01:11; Start 09/30/16 at 21:45; Stop 10/01/16 at 01:11 ; Status DC Ondansetron HCl 4 mg 4 mg 1X ONCE IV Last administered on 09/30/16 21:45; Start 09/30/16 at 21:45; Stop 09/30/16 at 21:46; Status DC Sodium Chloride (Iv Sodium Chloride 0.9% 500ml Bag) 500 ml @ 500 mls/hr 1X ONCE IV ; Start 09/30/16 at 21:45; Stop 09/30/16 at 23:05; Status DC Ondansetron HCl (Zofran) 4 mg PRN Q8HRS PRN IV NAUSEA/VOMITING Last administered on 10/01/16 14:37; Start 09/30/16 at 23:00; Stop 10/01/16 at 22:59 ; Status DC Morphine Sulfate 2 mg PRN Q2HR PRN IV PAIN Last administered on 10/01/16 20:25 ; Start 09/30/16 at 23:00; Stop 10/01/16 at 22:59; Status DC Hydromorphone HCl (Dilaudid) 0.5 mg PRN Q4HRS PRN IV PAIN Last administered on 10/02/16 20:38; Start 10/01/16 at 01:30 Calcium Acetate (Phoslo) 667 mg TIDWMEALS PO Last administered on 10/01/16 17: 08; Start 10/01/16 at 08:30 Famotidine (Pepcid) 20 mg QHS PO Last administered on 10/01/16 20:25; Start at 21:00; Stop 10/02/16 at 10:57; Status DC Gabapentin (Neurontin) 100 mg BID PO Last administered on 10/01/16 20:25; Start 10/01/16 at 09:00 Nitroglycerin (Nitrostat) 0.4 mg PRN Q1HR PRN SL CHEST PAIN; Start 10/01/16 at 08:00 Oxycodone/ Acetaminophen (Percocet 7.5/ 325) 1 tab TID PRN PO PAIN; Start 10/01 at 08:00 Polyethylene Glycol (miraLAX PACKET) 17 gm PRN DAILY PRN PO CONSTIPATION; Start 10/01/16 at 09:00; Stop 10/02/16 at 21:00; Status DC Ranolazine (Ranexa) 500 mg DAILY PO Last administered on 10/02/16 08:32; Start 10/01/16 at 09:00 Tamsulosin HCl (Flomax) 0.4 mg HS PO Last administered on 10/01/16 20:25; Start 10/01/16 at 21:00 Insulin Aspart (Novolog) 0-7 UNITS TIDWMEALS SQ ; Start 10/01/16 at 12:00 Dextrose 12.5 gm 12.5 gm PRN Q15MIN PRN IV SEE COMMENTS; Start 10/01/16 at 08: 15 Magnesium Sulfate/ Dextrose (Magnesium Sulfate PREMIX 2GM) 50 ml @ 25 mls/hr PRN DAILY PRN IV for Mag < 1.7 on am labs; Start 10/01/16 at 09:30 Iohexol (Omnipaque 240 Mg/ml) 30 ml 1X ONCE PO ; Start 10/01/16 at 10:00; Stop 10/01/16 at 10:01; Status DC Iohexol (Omnipaque 300 Mg/ml) 75 ml 1X ONCE IV Last administered on 10/01/16 13:17; Start 10/01/16 at 10:00; Stop 10/01/16 at 10:01; Status DC Info (Do NOT chart on this entry -- for MONITORING) 1 each PRN DAILY PRN MC SEE COMMENTS; Start 10/01/16 at 10:00; Stop 10/03/16 at 10:00; Status DC Info 1 each 1 each PRN DAILY PRN MC SEE COMMENTS; Start 10/01/16 at 16:30 Sodium Chloride (Iv Sodium Chloride 0.9% 1000ml Bag) 1,000 ml @ 1,000 mls/hr Q1H PRN IV hypotension; Start 10/02/16 at 07:51; Stop 10/02/16 at 13:50; Status DC Diphenhydramine HCl (Benadryl) 25 mg 1X PRN PRN IV ITCHING; Start 10/02/16 at 08:00; Stop 10/03/16 at 07:59; Status DC Diphenhydramine HCl (Benadryl) 25 mg 1X PRN PRN IV ITCHING; Start 10/02/16 at 08:00; Stop 10/03/16 at 07:59; Status DC Labetalol HCl 10 mg 10 mg PRN Q1HR PRN IVP SBP > 180; Start 10/02/16 at 08:00; Stop 10/02/16 at 22:16; Status DC Sodium Chloride (Iv Sodium Chloride 0.9% 1000ml Bag) 1,000 ml @ 400 mls/hr Q2H30M PRN IV PATENCY; Start 10/02/16 at 07:51; Stop 10/02/16 at 19:50; Status DC Info (PHARMACY MONITORING -- do not chart) 1 each PRN DAILY PRN MC SEE COMMENTS ; Start 10/02/16 at 08:00; Status UNV Lidocaine HCl (Xylocaine-Mpf 1% Vial) 1 ml 1X ONCE ID Last administered on 08:28; Start 10/02/16 at 08:00; Stop 10/02/16 at 08:01; Status DC Insulin Detemir (Levemir) 20 units DAILY08 SQ ; Start 10/02/16 at 10:00 Ondansetron HCl 4 mg 4 mg 1X STAT IV Last administered on 10/02/16 09:35; Start 10/02/16 at 09:25; Stop 10/02/16 at 09:28; Status DC Albumin Human (Albuminar) 200 ml @ 200 mls/hr 1X STAT IV Last administered on 10/02/16 10:49; Start 10/02/16 at 10:41; Stop 10/02/16 at 11:40; Status DC Polyethylene Glycol (miraLAX PACKET) 17 gm BID PO ; Start 10/02/16 at 12:00 Pantoprazole Sodium (Protonix) 40 mg DAILYAC PO ; Start 10/02/16 at 12:00 Lubiprostone (Amitiza) 8 mcg BIDWMEALS PO ; Start 10/02/16 at 12:00 Ondansetron HCl (Zofran) 4 mg PRN Q8HRS PRN IV NAUSEA/VOMITING Last administered on 10/02/16 13:29; Start 10/02/16 at 13:15; Stop 10/02/16 at 14:06 ; Status DC Ondansetron HCl 4 mg 4 mg PRN Q4HRS PRN IV NAUSEA/VOMITING Last administered on 10/03/16 08:24; Start 10/02/16 at 14:15 Sodium Chloride 1,000 ml @ 75 mls/hr [id number] IV ; Start 10/03/16 at 11:00; Stop 10/03/16 at 11:53; Status DC Sodium Chloride 1,000 ml @ 75 mls/hr [id number] IV Last administered on 11:51; Start 10/03/16 at 11:51; Stop 10/04/16 at 09:00 Metronidazole (FLAGYL 500Mmg PREMIX) 100 ml @ 100 mls/hr Q8HRS IV ; Start 10/03 at 14:00 Active Scripts Active Reported Humulin 70-30 Vial (Hum Insulin Nph/Reg Insulin Hm) 100 Unit/1 Ml Vial 20 Unit SQ BIDWMEALS Gabapentin 100 Mg Capsule 100 Mg PO BID Ranexa (Ranolazine) 500 Mg Tab.er.12h 1 Tab PO DAILY Phoslo (Calcium Acetate) 667 Mg Capsule 667 Mg PO TIDWMEALS Polyethylene Glycol 3350 255 Gm Powder 17 Gm PO DAILY PRN Anoro Ellipta 62.5-25 Mcg Inh (Umeclidinium Brm/Vilanterol Tr) 1 Each Disk.w.dev 1 Each IH DAILY Clopidogrel (Clopidogrel Bisulfate) 75 Mg Tablet 1 Tab PO DAILY Percocet 7.5-325 Mg Tablet (Oxycodone/Acetaminophen) 1 Each Tablet 1 Tab PO TID PRN Dialyvite 800 Tablet (Folic Acid/Vitamin B Comp W-C) 0.8 Mg Tablet 0.8 Mg PO DAILY NITROGLYCERIN SubLingual (Nitroglycerin) 0.4 Mg Tab.subl 0.4 Mg SL PRN Allopurinol 300 Mg Tablet 300 Mg PO DAILY Pepcid (Famotidine) 20 Mg Tablet 20 Mg PO QHS Lanoxin (Digoxin) 125 Mcg Tablet 125 Mcg PO DAILY Flomax (Tamsulosin Hcl) 0.4 Mg Cap.er.24h 0.4 Mg PO HS Aspirin 81 Mg Tab.chew 81 Mg PO DAILY Vitals/I & O Vital Sign - Last 24 Hours 10/02/16 10/02/16 10/02/16 10/02/16 19:00 20:00 20:38 21:08 Temp 98.1 98.1 Pulse 73 Resp 20 B/P 139/70 Pulse Ox 96 91 91 O2 Delivery Nasal Cannula Nasal Cannula Nasal Cannula Nasal Cannula O2 Flow Rate 2.0 2.0 2.0 2.0 10/02/16 10/03/16 10/03/16 10/03/16 23:00 03:00 07:43 08:00 Temp 98.1 97.6 97.7 98.1 97.6 97.7 Pulse 86 88 84 Resp 20 18 16 B/P 132/73 138/77 141/68 Pulse Ox 98 99 91 O2 Delivery Nasal Cannula Nasal Cannula Room Air Nasal Cannula O2 Flow Rate 2.0 2.0 2.0 10/03/16 10/03/16 10:51 15:21 Temp 97.9 97.7 97.9 97.7 Pulse 78 81 Resp 16 14 B/P 118/61 122/62 Pulse Ox 100 100 O2 Delivery Nasal Cannula Nasal Cannula O2 Flow Rate 2.0 2.0 Intake and Output 10/02/16 10/02/16 10/03/16 15:00 23:00 07:00 Intake Total 0 ml 100 ml Output Total 0 ml Balance 0 ml 100 ml LEXI ALTAMIRANO MD Oct 03, 2016 15:52
--- NOTE | 2016-10-03 16:38 | PDOC ---
GI PROGRESS NOTES Date Date/Time DATE: 10/03/16 TIME: 16:36 Subjective Subjective Partial small bowel obstruction- having loose stools, tolerating CLD without nausea Objective Vitals Vital Signs Date Time Temp Pulse Resp B/P Pulse Ox O2 Delivery O2 Flow Rate FiO2 10/03/16 15:21 97.7 81 14 122/62 100 Nasal Cannula 2.0 97.7 10/03/16 10:51 97.9 78 16 118/61 100 Nasal Cannula 2.0 97.9 10/03/16 08:00 Nasal Cannula 2.0 10/03/16 07:43 97.7 84 16 141/68 91 Room Air 97.7 10/03/16 03:00 97.6 88 18 138/77 99 Nasal Cannula 2.0 97.6 10/02/16 23:00 98.1 86 20 132/73 98 Nasal Cannula 2.0 98.1 10/02/16 21:08 91 Nasal Cannula 2.0 10/02/16 20:38 91 Nasal Cannula 2.0 10/02/16 20:00 Nasal Cannula 2.0 10/02/16 19:00 98.1 73 20 139/70 96 Nasal Cannula 2.0 98.1 Labs Labs Laboratory Tests Test 10/02/16 17:52 10/03/16 04:54 10/03/16 08:30 10/03/16 11:56 Glucose (Fingerstick) 188mg/dL (70-99) 166mg/dL (70-99) 170mg/dL (70-99) Sodium Level 140mmol/L (136-145) Potassium Level 4.3mmol/L (3.5-5.1) Chloride Level 97mmol/L (98-107) Carbon Dioxide Level 28mmol/L (21-32) Anion Gap 15 (6-14) Blood Urea Nitrogen 44mg/dL (8-26) Creatinine 4.7mg/dL (0.7-1.3) Estimated GFR (Cockcroft-Gault) 12.5 Glucose Level 179mg/dL (70-99) Lactic Acid Level 1.5mmol/L (0.4-2.0) Calcium Level 8.6mg/dL (8.5-10.1) Phosphorus Level 4.8mg/dL (2.6-4.7) Magnesium Level 1.9mg/dL (1.8-2.4) Albumin 3.0g/dL (3.4-5.0) Physical Exam Physical Exam chest- clear abd- soft non tender decreased but + bowel sounds Assessment Assessment Partial bowel obstruction- clinically improved Prior surgery for mass- benign by report Problems: Plan Plan full liquid diet monitor response BEAU MORTENSEN MD Oct 03, 2016 16:38
--- NOTE | 2016-10-03 17:11 | PDOC ---
Provider Note Provider Note RENAL F/U : ALY Doing Ok VSS Afebrile Exam stable. Labs reviewed. No new issues Supportive care No HD today RX per schedule. CPM. OBIE LU MD Oct 03, 2016 17:11
[2016-10-03 19:00] VITALS: BP 135/74
[2016-10-03] MEDS: TAMSULOSIN 0.4 MG CAP.ER.24H. PO SCH (21:35)
[2016-10-03 23:00] VITALS: BP 120/64
[2016-10-04 03:00] VITALS: BP 137/66
[2016-10-04] MEDS: METRONIDAZOLE 500mg PREMIX 100 ML IV SCH ×3 (06:19→21:11)
[2016-10-04] MEDS: PANTOPRAZOLE 40 MG TABLET. PO SCH (06:20)
[2016-10-04 07:00] VITALS: BP 144/74
[2016-10-04] MEDS: LUBIPROSTONE 8 MCG CAPSULE PO SCH ×2 (08:00→17:00)
[2016-10-04] MEDS: CALCIUM ACETATE 667 MG CAPSULE PO SCH ×3 (08:00→17:00)
[2016-10-04] MEDS: INSULIN DETEMIR 300 UNITS/3 ML INSULN.PEN. SQ SCH (08:00)
[2016-10-04] MEDS: INSULIN ASPART 300 UNITS/3 ML INSULN.PEN SQ SCH ×3 (08:00→17:00)
[2016-10-04] MEDS: GABAPENTIN 100 MG CAPSULE. PO SCH ×2 (09:00→21:12)
[2016-10-04] MEDS: POLYETHYLENE GLYCOL 3350 17 GM PACKET. PO SCH ×2 (09:00→21:00)
[2016-10-04] MEDS: RANOLAZINE 500 MG TAB.ER.12H PO SCH (09:00)
--- NOTE | 2016-10-04 09:22 | PDOC ---
LESLEE CENTENO PASTRYCOOK'S ASSISTANT 10/04/16 0922: SURGICAL PROGRESS NOTE Subjective not feeling well today nausea, no appetite, no flatus, abdominal pain Vital Signs Vital Signs Date Time Temp Pulse Resp B/P Pulse Ox O2 Delivery O2 Flow Rate FiO2 10/04/16 07:00 97.6 77 16 144/74 97 Nasal Cannula 2.0 97.6 I&O Intake and Output 10/04/16 07:00 Intake Total 290 ml Balance 290 ml Intake Oral 290 ml # Bowel Movements 1 General: Alert, Oriented X3, Cooperative, No acute distress Abdomen: Soft, Other (tender lower abdomen ) Labs Laboratory Tests Test 10/02/16 10:00 10/02/16 12:58 10/02/16 17:52 10/03/16 04:54 Glucose (Fingerstick) 132mg/dL (70-99) 133mg/dL (70-99) 188mg/dL (70-99) Sodium Level 140mmol/L (136-145) Potassium Level 4.3mmol/L (3.5-5.1) Chloride Level 97mmol/L (98-107) Carbon Dioxide Level 28mmol/L (21-32) Anion Gap 15 (6-14) Blood Urea Nitrogen 44mg/dL (8-26) Creatinine 4.7mg/dL (0.7-1.3) Estimated GFR (Cockcroft-Gault) 12.5 Glucose Level 179mg/dL (70-99) Lactic Acid Level 1.5mmol/L (0.4-2.0) Calcium Level 8.6mg/dL (8.5-10.1) Phosphorus Level 4.8mg/dL (2.6-4.7) Magnesium Level 1.9mg/dL (1.8-2.4) Albumin 3.0g/dL (3.4-5.0) Test 10/03/16 08:30 10/03/16 11:56 10/03/16 17:03 10/03/16 21:30 Glucose (Fingerstick) 166mg/dL (70-99) 170mg/dL (70-99) 157mg/dL (70-99) 178mg/dL (70-99) Test 10/04/16 06:19 10/04/16 07:24 Sodium Level 140mmol/L (136-145) Potassium Level 4.2mmol/L (3.5-5.1) Chloride Level 98mmol/L (98-107) Carbon Dioxide Level 26mmol/L (21-32) Anion Gap 16 (6-14) Blood Urea Nitrogen 67mg/dL (8-26) Creatinine 5.9mg/dL (0.7-1.3) Estimated GFR (Cockcroft-Gault) 9.6 Glucose Level 160mg/dL (70-99) Lactic Acid Level 1.2mmol/L (0.4-2.0) Calcium Level 8.5mg/dL (8.5-10.1) Phosphorus Level 5.0mg/dL (2.6-4.7) Magnesium Level 1.9mg/dL (1.8-2.4) Albumin 2.6g/dL (3.4-5.0) Glucose (Fingerstick) 130mg/dL (70-99) Laboratory Tests Test 10/03/16 11:56 10/03/16 17:03 10/03/16 21:30 10/04/16 06:19 Glucose (Fingerstick) 170mg/dL (70-99) 157mg/dL (70-99) 178mg/dL (70-99) Sodium Level 140mmol/L (136-145) Potassium Level 4.2mmol/L (3.5-5.1) Chloride Level 98mmol/L (98-107) Carbon Dioxide Level 26mmol/L (21-32) Anion Gap 16 (6-14) Blood Urea Nitrogen 67mg/dL (8-26) Creatinine 5.9mg/dL (0.7-1.3) Estimated GFR (Cockcroft-Gault) 9.6 Glucose Level 160mg/dL (70-99) Lactic Acid Level 1.2mmol/L (0.4-2.0) Calcium Level 8.5mg/dL (8.5-10.1) Phosphorus Level 5.0mg/dL (2.6-4.7) Magnesium Level 1.9mg/dL (1.8-2.4) Albumin 2.6g/dL (3.4-5.0) Test 10/04/16 07:24 Glucose (Fingerstick) 130mg/dL (70-99) Problem List Problems Medical Problems: (1) CAD (coronary artery disease) Status: Acute (2) ESRD (end stage renal disease) on dialysis Status: Acute (3) Periumbilical abdominal pain Status: Acute Assessment/Plan pain, nausea may need to consider SBFT Gi following Problems: BEATA HARDY MD 10/04/16 1151: SURGICAL PROGRESS NOTE Assessment/Plan Pt seen and examined. Agree with Ms. Centeno's note pt reports able to eat something abd soft cont w/u per GI d/w pt's Problems: LESLEE CENTENO APRN Oct 04, 2016 09:22 BEATA HARDY MD Oct 04, 2016 11:51
[2016-10-04 11:00] VITALS: BP 130/68
[2016-10-04] MEDS: ONDANSETRON PF 4 MG/2 ML VIAL. IV PRN (11:50)
[2016-10-04 12:02] LABS: ALBUMIN 2.6 g/dL (3.4-5.0); ALBUMIN/GLOBULIN RATIO 0.7 (1.0-1.7); CALCIUM 8.5 mg/dL (8.5-10.1); CREATININE 5.9 mg/dL (0.7-1.3); GFR 9.6; POTASSIUM 4.3 mmol/L (3.5-5.1); TOTAL BILIRUBIN 0.7 mg/dL (0.2-1.0); TOTAL PROTEIN 6.1 g/dL (6.4-8.2)
[2016-10-04 12:04] LABS: BASO % 0 % (0-3); EOS % 0 % (0-3); HEMATOCRIT 34.7 % (39.0-53.0); LYMPH # 0.7 x10^3/uL (1.0-4.8); LYMPH % 9 % (24-48); MEAN CORPUSCULAR HEMOGLOBIN 32 pg (25-35); MEAN CORPUSCULAR HGB CONC 32 g/dL (31-37); MEAN CORPUSCULAR VOLUME 100 fL (79-100); MONO % 15 % (0-9); NEUT % 75 % (31-73); PLATELET COUNT 128 x10^3/uL (140-400); RED BLOOD COUNT 3.46 x10^6/uL (4.30-5.70); RED CELL DISTRIBUTION WIDTH 15.6 % (11.5-14.5); WHITE BLOOD COUNT 7.6 x10^3/uL (4.0-11.0)
--- NOTE | 2016-10-04 12:18 | PDOC ---
SUBJECTIVE Subjective feels better. was able to eat today finished breakfast, no nausea, also no further diarrhea OBJECTIVE Objective stable Vital Signs Vital Signs Date Time Temp Pulse Resp B/P Pulse Ox O2 Delivery O2 Flow Rate FiO2 10/04/16 08:00 Nasal Cannula 2.0 10/04/16 07:00 97.6 77 16 144/74 97 Nasal Cannula 2.0 97.6 10/04/16 03:00 97.9 75 18 137/66 98 Nasal Cannula 2.0 97.9 10/03/16 23:00 97.5 77 18 120/64 100 Nasal Cannula 2.0 97.5 10/03/16 20:00 Nasal Cannula 2.0 10/03/16 19:00 97.5 81 18 135/74 100 Nasal Cannula 2.0 97.5 10/03/16 15:21 97.7 81 14 122/62 100 Nasal Cannula 2.0 97.7 I & O Intake and Output 10/04/16 07:00 Intake Total 290 ml Balance 290 ml Intake Oral 290 ml # Bowel Movements 1 PHYSICAL EXAM Physical Exam abdominal pain is better ASSESSMENT/PLAN Assessment/Plan 1- abd pain / N/V , diarrhea yesterday sent stool for c.diff , continue supportive plans, better P.O intake and no diarrhea or nausea stopped IVF due to hx cardiomyopathy 2- 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 3-Leukocytosis - suspect c.diff started flagyl IV due to nausea , WBC better continue same for now 4- ESRD on HD 5- Hx of [place] 6- left foot ulcer followed by wound care 7-DM ok continue present insulin Problems: COMMENT Lab Laboratory Tests Test 10/03/16 17:03 10/03/16 21:30 10/04/16 06:19 10/04/16 07:24 Glucose (Fingerstick) 157mg/dL (70-99) 178mg/dL (70-99) 130mg/dL (70-99) White Blood Count 7.6x10^3/uL (4.0-11.0) Red Blood Count 3.46x10^6/uL (4.30-5.70) Hemoglobin 11.0g/dL (13.0-17.5) Hematocrit 34.7% (39.0-53.0) Mean Corpuscular Volume 100fL (79-100) Mean Corpuscular Hemoglobin 32pg (25-35) Mean Corpuscular Hemoglobin Concent 32g/dL (31-37) Red Cell Distribution Width 15.6% (11.5-14.5) Platelet Count 128x10^3/uL (140-400) Neutrophils (%) (Auto) 75% (31-73) Lymphocytes (%) (Auto) 9% (24-48) Monocytes (%) (Auto) 15% (0-9) Eosinophils (%) (Auto) 0% (0-3) Basophils (%) (Auto) 0% (0-3) Neutrophils # (Auto) 5.7x10^3uL (1.8-7.7) Lymphocytes # (Auto) 0.7x10^3/uL (1.0-4.8) Monocytes # (Auto) 1.1x10^3/uL (0.0-1.1) Eosinophils # (Auto) 0.0x10^3/uL (0.0-0.7) Basophils # (Auto) 0.0x10^3/uL (0.0-0.2) Sodium Level 139mmol/L (136-145) Potassium Level 4.3mmol/L (3.5-5.1) Chloride Level 98mmol/L (98-107) Carbon Dioxide Level 25mmol/L (21-32) Anion Gap 16 (6-14) Blood Urea Nitrogen 65mg/dL (8-26) Creatinine 5.9mg/dL (0.7-1.3) Estimated GFR (Cockcroft-Gault) 9.6 BUN/Creatinine Ratio 11 (6-20) Glucose Level 158mg/dL (70-99) Lactic Acid Level 1.2mmol/L (0.4-2.0) Calcium Level 8.5mg/dL (8.5-10.1) Phosphorus Level 5.0mg/dL (2.6-4.7) Magnesium Level 1.9mg/dL (1.8-2.4) Total Bilirubin 0.7mg/dL (0.2-1.0) Aspartate Amino Transf (AST/SGOT) 12U/L (15-37) Alanine Aminotransferase (ALT/SGPT) 10U/L (16-63) Alkaline Phosphatase 88U/L (46-116) Total Protein 6.1g/dL (6.4-8.2) Albumin 2.6g/dL (3.4-5.0) Albumin/Globulin Ratio 0.7 (1.0-1.7) RYLEE JEROME MD Oct 04, 2016 12:18
--- NOTE | 2016-10-04 14:20 | PDOC ---
GI PROGRESS NOTES Date Date/Time DATE: 10/04/16 TIME: 14:18 Subjective Subjective alittle better today- loose stools, tolerating LIMITED amounts of FLD Objective Vitals Vital Signs Date Time Temp Pulse Resp B/P Pulse Ox O2 Delivery O2 Flow Rate FiO2 10/04/16 11:00 97.5 76 16 130/68 96 Nasal Cannula 2.0 97.5 10/04/16 08:00 Nasal Cannula 2.0 10/04/16 07:00 97.6 77 16 144/74 97 Nasal Cannula 2.0 97.6 10/04/16 03:00 97.9 75 18 137/66 98 Nasal Cannula 2.0 97.9 10/03/16 23:00 97.5 77 18 120/64 100 Nasal Cannula 2.0 97.5 10/03/16 20:00 Nasal Cannula 2.0 10/03/16 19:00 97.5 81 18 135/74 100 Nasal Cannula 2.0 97.5 10/03/16 15:21 97.7 81 14 122/62 100 Nasal Cannula 2.0 97.7 Labs Labs Laboratory Tests Test 10/03/16 17:03 10/03/16 21:30 10/04/16 06:19 10/04/16 07:24 Glucose (Fingerstick) 157mg/dL (70-99) 178mg/dL (70-99) 130mg/dL (70-99) White Blood Count 7.6x10^3/uL (4.0-11.0) Red Blood Count 3.46x10^6/uL (4.30-5.70) Hemoglobin 11.0g/dL (13.0-17.5) Hematocrit 34.7% (39.0-53.0) Mean Corpuscular Volume 100fL (79-100) Mean Corpuscular Hemoglobin 32pg (25-35) Mean Corpuscular Hemoglobin Concent 32g/dL (31-37) Red Cell Distribution Width 15.6% (11.5-14.5) Platelet Count 128x10^3/uL (140-400) Neutrophils (%) (Auto) 75% (31-73) Lymphocytes (%) (Auto) 9% (24-48) Monocytes (%) (Auto) 15% (0-9) Eosinophils (%) (Auto) 0% (0-3) Basophils (%) (Auto) 0% (0-3) Neutrophils # (Auto) 5.7x10^3uL (1.8-7.7) Lymphocytes # (Auto) 0.7x10^3/uL (1.0-4.8) Monocytes # (Auto) 1.1x10^3/uL (0.0-1.1) Eosinophils # (Auto) 0.0x10^3/uL (0.0-0.7) Basophils # (Auto) 0.0x10^3/uL (0.0-0.2) Sodium Level 139mmol/L (136-145) Potassium Level 4.3mmol/L (3.5-5.1) Chloride Level 98mmol/L (98-107) Carbon Dioxide Level 25mmol/L (21-32) Anion Gap 16 (6-14) Blood Urea Nitrogen 65mg/dL (8-26) Creatinine 5.9mg/dL (0.7-1.3) Estimated GFR (Cockcroft-Gault) 9.6 BUN/Creatinine Ratio 11 (6-20) Glucose Level 158mg/dL (70-99) Lactic Acid Level 1.2mmol/L (0.4-2.0) Calcium Level 8.5mg/dL (8.5-10.1) Phosphorus Level 5.0mg/dL (2.6-4.7) Magnesium Level 1.9mg/dL (1.8-2.4) Total Bilirubin 0.7mg/dL (0.2-1.0) Aspartate Amino Transf (AST/SGOT) 12U/L (15-37) Alanine Aminotransferase (ALT/SGPT) 10U/L (16-63) Alkaline Phosphatase 88U/L (46-116) Total Protein 6.1g/dL (6.4-8.2) Albumin 2.6g/dL (3.4-5.0) Albumin/Globulin Ratio 0.7 (1.0-1.7) Test 10/04/16 12:00 Glucose (Fingerstick) 155mg/dL (70-99) Physical Exam Physical Exam chest- clear abd- soft non tender decreased but + bowel sounds Assessment Assessment Partial bowel obstruction- clinically improved but slow progress Prior surgery for mass- benign by report Problems: Plan Plan full liquid diet to continue for now monitor response agree with surgery- if not improving by tomorrow , consider BEAU ANDERSEN MD Oct 04, 2016 14:20
[2016-10-04 15:00] VITALS: BP 138/60
[2016-10-04 19:00] VITALS: BP 121/60
--- NOTE | 2016-10-04 19:44 | PDOC ---
Provider Note Provider Note Covering for Dr. Matthews. Symptoms have improved. He was able to have some oral intake. He now complains of no abdominal discomfort. He was able to be dialyzed day before yesterday. Dr. Matthews returns tomorrow. LISSETTE WEST MD Oct 04, 2016 19:44
[2016-10-04] MEDS: TAMSULOSIN 0.4 MG CAP.ER.24H. PO SCH (21:12)
[2016-10-04 23:00] VITALS: BP 122/43
--- NOTE | 2016-10-04 23:46 | PDOC ---
Provider Note Provider Note RENAL F/U : ALY Doing Ok VSS Afebrile Exam stable. Labs reviewed. No new issues Supportive care No HD today RX per schedule. CPM. OBIE LU MD Oct 04, 2016 23:46
[2016-10-05] MEDS: HYDROMORPHONE 2 MG/ML VIAL. IV PRN ×3 (01:33→18:19)
[2016-10-05 03:00] VITALS: BP 106/46
[2016-10-05] MEDS: PANTOPRAZOLE 40 MG TABLET. PO SCH (05:28)
[2016-10-05] MEDS: METRONIDAZOLE 500mg PREMIX 100 ML IV SCH (05:28)
[2016-10-05 06:53] LABS: ALBUMIN 2.6 g/dL (3.4-5.0); CALCIUM 8.4 mg/dL (8.5-10.1); CREATININE 6.8 mg/dL (0.7-1.3); GFR 8.2; PHOSPHORUS 5.2 mg/dL (2.6-4.7); POTASSIUM 4.4 mmol/L (3.5-5.1)
[2016-10-05 07:00] VITALS: BP 111/61
[2016-10-05] MEDS: LUBIPROSTONE 8 MCG CAPSULE PO SCH ×2 (08:00→17:00)
[2016-10-05] MEDS: INSULIN DETEMIR 300 UNITS/3 ML INSULN.PEN. SQ SCH (08:00)
[2016-10-05] MEDS: CALCIUM ACETATE 667 MG CAPSULE PO SCH ×3 (08:04→17:03)
[2016-10-05] MEDS: RANOLAZINE 500 MG TAB.ER.12H PO SCH (08:04)
[2016-10-05] MEDS: GABAPENTIN 100 MG CAPSULE. PO SCH ×2 (08:04→20:42)
[2016-10-05] MEDS: POLYETHYLENE GLYCOL 3350 17 GM PACKET. PO SCH ×3 (08:05→20:42)
[2016-10-05] MEDS: INSULIN ASPART 300 UNITS/3 ML INSULN.PEN SQ SCH ×3 (08:08→17:00)
--- NOTE | 2016-10-05 08:25 | PDOC ---
Provider Note Provider Note states he feels better since last pm, less nausea/pain- vss, no temp, wbc down- will cont same and follow- is on iv flagyl ? reason- since 10/03 SANDEEP YANG MD Oct 05, 2016 08:25
--- NOTE | 2016-10-05 08:37 | PDOC ---
LESLEE CENTENO [employer] 10/05/16 0837: SURGICAL PROGRESS NOTE Subjective feeling better today no nausea pain to RLQ had 1 loose stool yesterday eating a little more today Vital Signs Vital Signs Date Time Temp Pulse Resp B/P Pulse Ox O2 Delivery O2 Flow Rate FiO2 10/05/16 08:04 69 106/46 10/05/16 03:00 96.1 16 98 Nasal Cannula 2.0 96.1 I&O Intake and Output 10/05/16 07:00 Intake Total 110 ml Balance 110 ml Intake Oral 110 ml # Voids 2 General: Alert, Oriented X3, Cooperative, No acute distress Abdomen: Soft, Other (tenderness to RLQ) Labs Laboratory Tests Test 10/03/16 11:56 10/03/16 17:03 10/03/16 21:30 10/04/16 06:19 Glucose (Fingerstick) 170mg/dL (70-99) 157mg/dL (70-99) 178mg/dL (70-99) White Blood Count 7.6x10^3/uL (4.0-11.0) Red Blood Count 3.46x10^6/uL (4.30-5.70) Hemoglobin 11.0g/dL (13.0-17.5) Hematocrit 34.7% (39.0-53.0) Mean Corpuscular Volume 100fL (79-100) Mean Corpuscular Hemoglobin 32pg (25-35) Mean Corpuscular Hemoglobin Concent 32g/dL (31-37) Red Cell Distribution Width 15.6% (11.5-14.5) Platelet Count 128x10^3/uL (140-400) Neutrophils (%) (Auto) 75% (31-73) Lymphocytes (%) (Auto) 9% (24-48) Monocytes (%) (Auto) 15% (0-9) Eosinophils (%) (Auto) 0% (0-3) Basophils (%) (Auto) 0% (0-3) Neutrophils # (Auto) 5.7x10^3uL (1.8-7.7) Lymphocytes # (Auto) 0.7x10^3/uL (1.0-4.8) Monocytes # (Auto) 1.1x10^3/uL (0.0-1.1) Eosinophils # (Auto) 0.0x10^3/uL (0.0-0.7) Basophils # (Auto) 0.0x10^3/uL (0.0-0.2) Sodium Level 139mmol/L (136-145) Potassium Level 4.3mmol/L (3.5-5.1) Chloride Level 98mmol/L (98-107) Carbon Dioxide Level 25mmol/L (21-32) Anion Gap 16 (6-14) Blood Urea Nitrogen 65mg/dL (8-26) Creatinine 5.9mg/dL (0.7-1.3) Estimated GFR (Cockcroft-Gault) 9.6 BUN/Creatinine Ratio 11 (6-20) Glucose Level 158mg/dL (70-99) Lactic Acid Level 1.2mmol/L (0.4-2.0) Calcium Level 8.5mg/dL (8.5-10.1) Phosphorus Level 5.0mg/dL (2.6-4.7) Magnesium Level 1.9mg/dL (1.8-2.4) Total Bilirubin 0.7mg/dL (0.2-1.0) Aspartate Amino Transf (AST/SGOT) 12U/L (15-37) Alanine Aminotransferase (ALT/SGPT) 10U/L (16-63) Alkaline Phosphatase 88U/L (46-116) Total Protein 6.1g/dL (6.4-8.2) Albumin 2.6g/dL (3.4-5.0) Albumin/Globulin Ratio 0.7 (1.0-1.7) Test 10/04/16 07:24 10/04/16 12:00 10/04/16 16:45 10/04/16 21:05 Glucose (Fingerstick) 130mg/dL (70-99) 155mg/dL (70-99) 154mg/dL (70-99) 170mg/dL (70-99) Test 10/05/16 06:20 Sodium Level 138mmol/L (136-145) Potassium Level 4.4mmol/L (3.5-5.1) Chloride Level 99mmol/L (98-107) Carbon Dioxide Level 22mmol/L (21-32) Anion Gap 17 (6-14) Blood Urea Nitrogen 84mg/dL (8-26) Creatinine 6.8mg/dL (0.7-1.3) Estimated GFR (Cockcroft-Gault) 8.2 Glucose Level 182mg/dL (70-99) Lactic Acid Level 1.1mmol/L (0.4-2.0) Calcium Level 8.4mg/dL (8.5-10.1) Phosphorus Level 5.2mg/dL (2.6-4.7) Magnesium Level 2.1mg/dL (1.8-2.4) Albumin 2.6g/dL (3.4-5.0) Laboratory Tests Test 10/04/16 12:00 10/04/16 16:45 10/04/16 21:05 10/05/16 06:20 Glucose (Fingerstick) 155mg/dL (70-99) 154mg/dL (70-99) 170mg/dL (70-99) Sodium Level 138mmol/L (136-145) Potassium Level 4.4mmol/L (3.5-5.1) Chloride Level 99mmol/L (98-107) Carbon Dioxide Level 22mmol/L (21-32) Anion Gap 17 (6-14) Blood Urea Nitrogen 84mg/dL (8-26) Creatinine 6.8mg/dL (0.7-1.3) Estimated GFR (Cockcroft-Gault) 8.2 Glucose Level 182mg/dL (70-99) Lactic Acid Level 1.1mmol/L (0.4-2.0) Calcium Level 8.4mg/dL (8.5-10.1) Phosphorus Level 5.2mg/dL (2.6-4.7) Magnesium Level 2.1mg/dL (1.8-2.4) Albumin 2.6g/dL (3.4-5.0) Problem List Problems Medical Problems: (1) CAD (coronary artery disease) Status: Acute (2) ESRD (end stage renal disease) on dialysis Status: Acute (3) Periumbilical abdominal pain Status: Acute Assessment/Plan improved today observe Problems: BEATA HARDY MD 10/05/16 1407: SURGICAL PROGRESS NOTE Assessment/Plan Pt seen and examined. Agree with Ms. Centeno's note Pt resting comfortably on dialysis abd soft cont supportive care Problems: LESLEE CENTENO APRN Oct 05, 2016 08:37 BEATA HARDY MD Oct 05, 2016 14:07
--- NOTE | 2016-10-05 09:45 | PDOC ---
PROGRESS NOTES Subjective Subjective The patient is much improved today. He does not have any chest pain or cardiac complaints at this time. He is also no longer short of breath. His abdominal pain has improved though it has shifted to the RLQ. He is also tolerating PO intake now, which is an improvement from before. Objective Objective Vital Signs Date Time Temp Pulse Resp B/P Pulse Ox O2 Delivery O2 Flow Rate FiO2 10/05/16 09:20 Nasal Cannula 2.0 10/05/16 08:04 69 106/46 10/05/16 07:00 97.5 18 100 97.5 Intake and Output 10/05/16 07:00 Intake Total 110 ml Balance 110 ml Intake Oral 110 ml # Voids 2 Physical Exam Heart: Regular rate, Normal S1, Normal S2, No murmurs Lungs: Clear to auscultation Assessment Assessment Problems Medical Problems: (1) CAD (coronary artery disease) Status: Acute (2) ESRD (end stage renal disease) on dialysis Status: Acute (3) Periumbilical abdominal pain Status: Acute Plan Plan of Care Continue home medications and scheduled dialysis while patient is here. Continue to increase PO intake. Will continue to follow in care. Comment Review of Relevant I have reviewed the following items nicole (where applicable) has been applied. Labs Laboratory Tests Test 10/03/16 11:56 10/03/16 17:03 10/03/16 21:30 10/04/16 06:19 Glucose (Fingerstick) 170mg/dL (70-99) 157mg/dL (70-99) 178mg/dL (70-99) White Blood Count 7.6x10^3/uL (4.0-11.0) Red Blood Count 3.46x10^6/uL (4.30-5.70) Hemoglobin 11.0g/dL (13.0-17.5) Hematocrit 34.7% (39.0-53.0) Mean Corpuscular Volume 100fL (79-100) Mean Corpuscular Hemoglobin 32pg (25-35) Mean Corpuscular Hemoglobin Concent 32g/dL (31-37) Red Cell Distribution Width 15.6% (11.5-14.5) Platelet Count 128x10^3/uL (140-400) Neutrophils (%) (Auto) 75% (31-73) Lymphocytes (%) (Auto) 9% (24-48) Monocytes (%) (Auto) 15% (0-9) Eosinophils (%) (Auto) 0% (0-3) Basophils (%) (Auto) 0% (0-3) Neutrophils # (Auto) 5.7x10^3uL (1.8-7.7) Lymphocytes # (Auto) 0.7x10^3/uL (1.0-4.8) Monocytes # (Auto) 1.1x10^3/uL (0.0-1.1) Eosinophils # (Auto) 0.0x10^3/uL (0.0-0.7) Basophils # (Auto) 0.0x10^3/uL (0.0-0.2) Sodium Level 139mmol/L (136-145) Potassium Level 4.3mmol/L (3.5-5.1) Chloride Level 98mmol/L (98-107) Carbon Dioxide Level 25mmol/L (21-32) Anion Gap 16 (6-14) Blood Urea Nitrogen 65mg/dL (8-26) Creatinine 5.9mg/dL (0.7-1.3) Estimated GFR (Cockcroft-Gault) 9.6 BUN/Creatinine Ratio 11 (6-20) Glucose Level 158mg/dL (70-99) Lactic Acid Level 1.2mmol/L (0.4-2.0) Calcium Level 8.5mg/dL (8.5-10.1) Phosphorus Level 5.0mg/dL (2.6-4.7) Magnesium Level 1.9mg/dL (1.8-2.4) Total Bilirubin 0.7mg/dL (0.2-1.0) Aspartate Amino Transf (AST/SGOT) 12U/L (15-37) Alanine Aminotransferase (ALT/SGPT) 10U/L (16-63) Alkaline Phosphatase 88U/L (46-116) Total Protein 6.1g/dL (6.4-8.2) Albumin 2.6g/dL (3.4-5.0) Albumin/Globulin Ratio 0.7 (1.0-1.7) Test 10/04/16 07:24 10/04/16 12:00 10/04/16 16:45 10/04/16 21:05 Glucose (Fingerstick) 130mg/dL (70-99) 155mg/dL (70-99) 154mg/dL (70-99) 170mg/dL (70-99) Test 10/05/16 06:20 10/05/16 07:44 Sodium Level 138mmol/L (136-145) Potassium Level 4.4mmol/L (3.5-5.1) Chloride Level 99mmol/L (98-107) Carbon Dioxide Level 22mmol/L (21-32) Anion Gap 17 (6-14) Blood Urea Nitrogen 84mg/dL (8-26) Creatinine 6.8mg/dL (0.7-1.3) Estimated GFR (Cockcroft-Gault) 8.2 Glucose Level 182mg/dL (70-99) Lactic Acid Level 1.1mmol/L (0.4-2.0) Calcium Level 8.4mg/dL (8.5-10.1) Phosphorus Level 5.2mg/dL (2.6-4.7) Magnesium Level 2.1mg/dL (1.8-2.4) Albumin 2.6g/dL (3.4-5.0) Glucose (Fingerstick) 153mg/dL (70-99) Laboratory Tests Test 10/04/16 12:00 10/04/16 16:45 10/04/16 21:05 10/05/16 06:20 Glucose (Fingerstick) 155mg/dL (70-99) 154mg/dL (70-99) 170mg/dL (70-99) Sodium Level 138mmol/L (136-145) Potassium Level 4.4mmol/L (3.5-5.1) Chloride Level 99mmol/L (98-107) Carbon Dioxide Level 22mmol/L (21-32) Anion Gap 17 (6-14) Blood Urea Nitrogen 84mg/dL (8-26) Creatinine 6.8mg/dL (0.7-1.3) Estimated GFR (Cockcroft-Gault) 8.2 Glucose Level 182mg/dL (70-99) Lactic Acid Level 1.1mmol/L (0.4-2.0) Calcium Level 8.4mg/dL (8.5-10.1) Phosphorus Level 5.2mg/dL (2.6-4.7) Magnesium Level 2.1mg/dL (1.8-2.4) Albumin 2.6g/dL (3.4-5.0) Test 10/05/16 07:44 Glucose (Fingerstick) 153mg/dL (70-99) Medications Current Medications Hydromorphone HCl (Dilaudid) 0.5 mg PRN Q1HR PRN IV SEVERE PAIN Last administered on 10/01/16 01:11; Start 09/30/16 at 21:45; Stop 10/01/16 at 01:11 ; Status DC Ondansetron HCl 4 mg 4 mg 1X ONCE IV Last administered on 09/30/16 21:45; Start 09/30/16 at 21:45; Stop 09/30/16 at 21:46; Status DC Sodium Chloride (Iv Sodium Chloride 0.9% 500ml Bag) 500 ml @ 500 mls/hr 1X ONCE IV ; Start 09/30/16 at 21:45; Stop 09/30/16 at 23:05; Status DC Ondansetron HCl (Zofran) 4 mg PRN Q8HRS PRN IV NAUSEA/VOMITING Last administered on 10/01/16 14:37; Start 09/30/16 at 23:00; Stop 10/01/16 at 22:59 ; Status DC Morphine Sulfate 2 mg PRN Q2HR PRN IV PAIN Last administered on 10/01/16 20:25 ; Start 09/30/16 at 23:00; Stop 10/01/16 at 22:59; Status DC Hydromorphone HCl (Dilaudid) 0.5 mg PRN Q4HRS PRN IV PAIN Last administered on 10/05/16 09:20; Start 10/01/16 at 01:30 Calcium Acetate (Phoslo) 667 mg TIDWMEALS PO Last administered on 10/05/16 08: 04; Start 10/01/16 at 08:30 Famotidine (Pepcid) 20 mg QHS PO Last administered on 10/01/16 20:25; Start at 21:00; Stop 10/02/16 at 10:57; Status DC Gabapentin (Neurontin) 100 mg BID PO Last administered on 10/05/16 08:04; Start 10/01/16 at 09:00 Nitroglycerin (Nitrostat) 0.4 mg PRN Q1HR PRN SL CHEST PAIN; Start 10/01/16 at 08:00 Oxycodone/ Acetaminophen (Percocet 7.5/ 325) 1 tab TID PRN PO PAIN Last administered on 10/04/16 21:21; Start 10/01/16 at 08:00 Polyethylene Glycol (miraLAX PACKET) 17 gm PRN DAILY PRN PO CONSTIPATION; Start 10/01/16 at 09:00; Stop 10/02/16 at 21:00; Status DC Ranolazine (Ranexa) 500 mg DAILY PO Last administered on 10/05/16 08:04; Start 10/01/16 at 09:00 Tamsulosin HCl (Flomax) 0.4 mg HS PO Last administered on 10/04/16 21:12; Start 10/01/16 at 21:00 Insulin Aspart (Novolog) 0-7 UNITS TIDWMEALS SQ Last administered on 10/05/16 08:08; Start 10/01/16 at 12:00 Dextrose 12.5 gm 12.5 gm PRN Q15MIN PRN IV SEE COMMENTS; Start 10/01/16 at 08: 15 Magnesium Sulfate/ Dextrose (Magnesium Sulfate PREMIX 2GM) 50 ml @ 25 mls/hr PRN DAILY PRN IV for Mag < 1.7 on am labs; Start 10/01/16 at 09:30 Iohexol (Omnipaque 240 Mg/ml) 30 ml 1X ONCE PO ; Start 10/01/16 at 10:00; Stop 10/01/16 at 10:01; Status DC Iohexol (Omnipaque 300 Mg/ml) 75 ml 1X ONCE IV Last administered on 10/01/16 13:17; Start 10/01/16 at 10:00; Stop 10/01/16 at 10:01; Status DC Info (Do NOT chart on this entry -- for MONITORING) 1 each PRN DAILY PRN MC SEE COMMENTS; Start 10/01/16 at 10:00; Stop 10/03/16 at 10:00; Status DC Info 1 each 1 each PRN DAILY PRN MC SEE COMMENTS; Start 10/01/16 at 16:30 Sodium Chloride (Iv Sodium Chloride 0.9% 1000ml Bag) 1,000 ml @ 1,000 mls/hr Q1H PRN IV hypotension; Start 10/02/16 at 07:51; Stop 10/02/16 at 13:50; Status DC Diphenhydramine HCl (Benadryl) 25 mg 1X PRN PRN IV ITCHING; Start 10/02/16 at 08:00; Stop 10/03/16 at 07:59; Status DC Diphenhydramine HCl (Benadryl) 25 mg 1X PRN PRN IV ITCHING; Start 10/02/16 at 08:00; Stop 10/03/16 at 07:59; Status DC Labetalol HCl 10 mg 10 mg PRN Q1HR PRN IVP SBP > 180; Start 10/02/16 at 08:00; Stop 10/02/16 at 22:16; Status DC Sodium Chloride (Iv Sodium Chloride 0.9% 1000ml Bag) 1,000 ml @ 400 mls/hr Q2H30M PRN IV PATENCY; Start 10/02/16 at 07:51; Stop 10/02/16 at 19:50; Status DC Info (PHARMACY MONITORING -- do not chart) 1 each PRN DAILY PRN MC SEE COMMENTS ; Start 10/02/16 at 08:00; Status UNV Lidocaine HCl (Xylocaine-Mpf 1% Vial) 1 ml 1X ONCE ID Last administered on 08:28; Start 10/02/16 at 08:00; Stop 10/02/16 at 08:01; Status DC Insulin Detemir (Levemir) 20 units DAILY08 SQ ; Start 10/02/16 at 10:00 Ondansetron HCl 4 mg 4 mg 1X STAT IV Last administered on 10/02/16 09:35; Start 10/02/16 at 09:25; Stop 10/02/16 at 09:28; Status DC Albumin Human (Albuminar) 200 ml @ 200 mls/hr 1X STAT IV Last administered on 10/02/16 10:49; Start 10/02/16 at 10:41; Stop 10/02/16 at 11:40; Status DC Polyethylene Glycol (miraLAX PACKET) 17 gm BID PO Last administered on 09:20; Start 10/02/16 at 12:00 Pantoprazole Sodium (Protonix) 40 mg DAILYAC PO Last administered on 10/05/16 05:28; Start 10/02/16 at 12:00 Lubiprostone (Amitiza) 8 mcg BIDWMEALS PO ; Start 10/02/16 at 12:00 Ondansetron HCl (Zofran) 4 mg PRN Q8HRS PRN IV NAUSEA/VOMITING Last administered on 10/02/16 13:29; Start 10/02/16 at 13:15; Stop 10/02/16 at 14:06 ; Status DC Ondansetron HCl 4 mg 4 mg PRN Q4HRS PRN IV NAUSEA/VOMITING Last administered on 10/04/16 11:50; Start 10/02/16 at 14:15 Sodium Chloride 1,000 ml @ 75 mls/hr [id number] IV ; Start 10/03/16 at 11:00; Stop 10/03/16 at 11:53; Status DC Sodium Chloride 1,000 ml @ 75 mls/hr [id number] IV Last administered on 21:28; Start 10/03/16 at 11:51; Stop 10/04/16 at 09:00; Status DC Metronidazole (FLAGYL 500Mmg PREMIX) 100 ml @ 100 mls/hr Q8HRS IV Last administered on 10/05/16 05:28; Start 10/03/16 at 14:00 Active Scripts Active Reported Humulin 70-30 Vial (Hum Insulin Nph/Reg Insulin Hm) 100 Unit/1 Ml Vial 20 Unit SQ BIDWMEALS Gabapentin 100 Mg Capsule 100 Mg PO BID Ranexa (Ranolazine) 500 Mg Tab.er.12h 1 Tab PO DAILY Phoslo (Calcium Acetate) 667 Mg Capsule 667 Mg PO TIDWMEALS Polyethylene Glycol 3350 255 Gm Powder 17 Gm PO DAILY PRN Anoro Ellipta 62.5-25 Mcg Inh (Umeclidinium Brm/Vilanterol Tr) 1 Each Disk.w.dev 1 Each IH DAILY Clopidogrel (Clopidogrel Bisulfate) 75 Mg Tablet 1 Tab PO DAILY Percocet 7.5-325 Mg Tablet (Oxycodone/Acetaminophen) 1 Each Tablet 1 Tab PO TID PRN Dialyvite 800 Tablet (Folic Acid/Vitamin B Comp W-C) 0.8 Mg Tablet 0.8 Mg PO DAILY NITROGLYCERIN SubLingual (Nitroglycerin) 0.4 Mg Tab.subl 0.4 Mg SL PRN Allopurinol 300 Mg Tablet 300 Mg PO DAILY Pepcid (Famotidine) 20 Mg Tablet 20 Mg PO QHS Lanoxin (Digoxin) 125 Mcg Tablet 125 Mcg PO DAILY Flomax (Tamsulosin Hcl) 0.4 Mg Cap.er.24h 0.4 Mg PO HS Aspirin 81 Mg Tab.chew 81 Mg PO DAILY Vitals/I & O Vital Sign - Last 24 Hours 10/04/16 10/04/16 10/04/16 10/04/16 11:00 15:00 19:00 21:21 Temp 97.5 97.7 97.9 97.5 97.7 97.9 Pulse 76 69 72 Resp 16 16 16 B/P 130/68 138/60 121/60 Pulse Ox 96 100 100 100 O2 Delivery Nasal Cannula Nasal Cannula Nasal Cannula Nasal Cannula O2 Flow Rate 2.0 2.0 2.0 2.0 10/04/16 10/04/16 10/05/16 10/05/16 22:21 23:00 01:33 02:03 Temp 97.9 97.9 Pulse 72 Resp 16 B/P 122/43 Pulse Ox 100 100 100 100 O2 Delivery Nasal Cannula Nasal Cannula Nasal Cannula Nasal Cannula O2 Flow Rate 2.0 2.0 2.0 2.0 10/05/16 10/05/16 10/05/16 10/05/16 03:00 07:00 08:04 09:20 Temp 96.1 97.5 96.1 97.5 Pulse 69 68 69 Resp 16 18 B/P 106/46 111/61 106/46 Pulse Ox 98 100 O2 Delivery Nasal Cannula Nasal Cannula Nasal Cannula O2 Flow Rate 2.0 2.0 2.0 Intake and Output 10/04/16 10/04/16 10/05/16 15:00 23:00 07:00 Intake Total 0 ml 110 ml Balance 0 ml 110 ml LEXI ALTAMIRANO MD Oct 05, 2016 09:45
--- NOTE | 2016-10-05 11:13 | PDOC ---
Renal-Progress Notes Subjective Notes Notes ABD PAIN, BETTER History of Present Illness Hx of present illness IMPROVED Vitals Vitals Vital Signs Date Time Temp Pulse Resp B/P Pulse Ox O2 Delivery O2 Flow Rate FiO2 10/05/16 09:20 Nasal Cannula 2.0 10/05/16 08:04 69 106/46 10/05/16 07:00 97.5 18 100 97.5 Weight Weight [ ] I.O. Intake and Output Intake and Output 10/05/16 06:59 Intake Total 110 ml Balance 110 ml Intake Oral 110 ml # Voids 2 Labs Labs Laboratory Tests Test 10/04/16 12:00 10/04/16 16:45 10/04/16 21:05 10/05/16 06:20 Glucose (Fingerstick) 155mg/dL (70-99) 154mg/dL (70-99) 170mg/dL (70-99) Sodium Level 138mmol/L (136-145) Potassium Level 4.4mmol/L (3.5-5.1) Chloride Level 99mmol/L (98-107) Carbon Dioxide Level 22mmol/L (21-32) Anion Gap 17 (6-14) Blood Urea Nitrogen 84mg/dL (8-26) Creatinine 6.8mg/dL (0.7-1.3) Estimated GFR (Cockcroft-Gault) 8.2 Glucose Level 182mg/dL (70-99) Lactic Acid Level 1.1mmol/L (0.4-2.0) Calcium Level 8.4mg/dL (8.5-10.1) Phosphorus Level 5.2mg/dL (2.6-4.7) Magnesium Level 2.1mg/dL (1.8-2.4) Albumin 2.6g/dL (3.4-5.0) Test 10/05/16 07:44 10/05/16 11:03 Glucose (Fingerstick) 153mg/dL (70-99) 113mg/dL (70-99) Review of Systems Constitutional: yes: alert, oriented, weakness Ears/Nose/Throat: Yes: no symptom reported Eyes: Yes: no symptom reported Pulmonary: Yes no symptom reported Cardiovascular: Yes no symptom reported Gastrointestional: Yes: abdominal pain Genitourinary: Yes: no symptom reported Musculoskeletal: Yes: muscle stiffness Skin: Yes no symptom reported Physical Exam General Appearance: no apparent distress Skin: warm Respiratory: decreased breath sounds Heart: S1S2, RRR Abdomen: soft, bowel sounds present Genitourinary: bladder flat Extremities: pulses present Neurology: alert Musculoskeletal: Muscle atrophy, Weakness Assessment Assessment IMP ANEMIA ABD PAIN ESRD PLAN HD TODAY UF TO DW WILL FOLLOW NAVIN ACEVEDO MD Oct 05, 2016 11:13
[2016-10-05 11:26] VITALS: BP 99/27
[2016-10-05] MEDS ORDERED: LIDOCAINE 1% PF 2 ML VIAL. ONE (12:07)
[2016-10-05] MEDS ORDERED: IV NORMAL SALINE 1000ML BAG 1,000 ML IV PRN (13:44)
[2016-10-05] MEDS ORDERED: DIALYSIS PATIENT. MC PRN ×2 (13:45)
[2016-10-05] MEDS ORDERED: METRONIDAZOLE 500 MG TABLET. PO SCH (14:00)
[2016-10-05 15:00] VITALS: BP 121/68
--- NOTE | 2016-10-05 15:05 | PDOC ---
Subjective: Subjective: Feeling better w/ still RLQ pain worse w/ movement. Objective: Objective: D/w RN this morning - eating some, moving bowels w/ significant stool this morning, less pain. Now + C Diff this afternoon Vital Signs: Vital Signs Date Time Temp Pulse Resp B/P Pulse Ox O2 Delivery O2 Flow Rate FiO2 10/05/16 11:26 95.0 70 18 99/27 98 Nasal Cannula 2.0 95.0 Labs: Laboratory Tests Test 10/04/16 16:45 10/04/16 21:05 10/05/16 07:44 10/05/16 11:03 Glucose (Fingerstick) 154mg/dL (70-99) 170mg/dL (70-99) 153mg/dL (70-99) 113mg/dL (70-99) PE: GEN: NAD, dialyzing LUNGS: clear anteriorly HEART: S1S2 ABD: BS+, RLQ tenderness NEURO/PSYCH: A & O 3 A/P: C Diff -note now on Flagyl PO Abdominal pain w/ n/v - improved -h/o colon cancer, h/o constipation, h/o GERD ESRD on HD, DM -- Pain improved but now + for C Diff. Will discuss ?need for vanco (opposed to PO Flagyl) w/ Dr. Atkins. KARIS CHAIREZ Oct 05, 2016 15:05
[2016-10-05] MEDS: METRONIDAZOLE 500 MG TABLET. PO SCH ×2 (17:03→20:42)
[2016-10-05 19:00] VITALS: BP 112/50
[2016-10-05] MEDS: TAMSULOSIN 0.4 MG CAP.ER.24H. PO SCH (20:42)
[2016-10-05 22:30] VITALS: BP 116/59
[2016-10-06] MEDS: HYDROMORPHONE 2 MG/ML VIAL. IV PRN ×2 (01:42→05:42)
[2016-10-06 04:53] LABS: ALBUMIN 2.5 g/dL (3.4-5.0); CALCIUM 7.5 mg/dL (8.5-10.1); CREATININE 4.5 mg/dL (0.7-1.3); GFR 13.1; PHOSPHORUS 3.9 mg/dL (2.6-4.7); POTASSIUM 4.2 mmol/L (3.5-5.1)
[2016-10-06] MEDS: PANTOPRAZOLE 40 MG TABLET. PO SCH (05:41)
[2016-10-06 07:00] VITALS: BP 117/59
[2016-10-06] MEDS: INSULIN DETEMIR 300 UNITS/3 ML INSULN.PEN. SQ SCH ×2 (08:00→12:20)
[2016-10-06] MEDS: LUBIPROSTONE 8 MCG CAPSULE PO SCH (08:00)
--- NOTE | 2016-10-06 08:02 | DISCH ---
DISCHARGE INSTRUCTIONS Condition on Discharge Condition on Discharge: Stable Activity After Discharge Activity Instructions for Disc: No restrictions Diet after Discharge Diet after Discharge: Renal Dialysis Follow-Up Follow up with: dr garcia 1 week SANDEEP YANG MD Oct 06, 2016 08:02
--- NOTE | 2016-10-06 08:09 | PDOC ---
Provider Note Provider Note [id number] SANDEEP YANG MD Oct 06, 2016 08:09
[2016-10-06] MEDS: GABAPENTIN 100 MG CAPSULE. PO SCH (08:13)
[2016-10-06] MEDS: METRONIDAZOLE 500 MG TABLET. PO SCH (08:13)
[2016-10-06] MEDS: RANOLAZINE 500 MG TAB.ER.12H PO SCH (08:13)
[2016-10-06] MEDS: CALCIUM ACETATE 667 MG CAPSULE PO SCH ×2 (08:13→12:14)
[2016-10-06] MEDS: INSULIN ASPART 300 UNITS/3 ML INSULN.PEN SQ SCH ×2 (08:21→12:20)
--- NOTE | 2016-10-06 09:59 | PDOC ---
LESLEE CENTENO STEREOTYPER HELPER 10/06/16 0959: SURGICAL PROGRESS NOTE Subjective feeling better eating more Vital Signs Vital Signs Date Time Temp Pulse Resp B/P Pulse Ox O2 Delivery O2 Flow Rate FiO2 10/06/16 08:13 67 116/59 10/06/16 07:00 97.9 19 97 Nasal Cannula 97.9 10/06/16 06:10 2.0 I&O Intake and Output 10/06/16 07:00 Intake Total 524 ml Output Total 2 ml Balance 522 ml Intake Oral 524 ml Output Urine Total 0 ml Urine/Stool Mix 2 ml General: Alert, Oriented X3, Cooperative, No acute distress Abdomen: Soft, No tenderness Labs Laboratory Tests Test 10/04/16 12:00 10/04/16 13:30 10/04/16 16:45 10/04/16 21:05 Glucose (Fingerstick) 155mg/dL (70-99) 154mg/dL (70-99) 170mg/dL (70-99) Clostridium difficile Toxin (PCR) Positive (Negative) Test 10/05/16 06:20 10/05/16 07:44 10/05/16 11:03 10/05/16 17:02 Sodium Level 138mmol/L (136-145) Potassium Level 4.4mmol/L (3.5-5.1) Chloride Level 99mmol/L (98-107) Carbon Dioxide Level 22mmol/L (21-32) Anion Gap 17 (6-14) Blood Urea Nitrogen 84mg/dL (8-26) Creatinine 6.8mg/dL (0.7-1.3) Estimated GFR (Cockcroft-Gault) 8.2 Glucose Level 182mg/dL (70-99) Lactic Acid Level 1.1mmol/L (0.4-2.0) Calcium Level 8.4mg/dL (8.5-10.1) Phosphorus Level 5.2mg/dL (2.6-4.7) Magnesium Level 2.1mg/dL (1.8-2.4) Albumin 2.6g/dL (3.4-5.0) Glucose (Fingerstick) 153mg/dL (70-99) 113mg/dL (70-99) 73mg/dL (70-99) Test 10/05/16 20:34 10/06/16 04:25 2/28/17 07:46 Glucose (Fingerstick) 139mg/dL (70-99) 165mg/dL (70-99) Sodium Level 140mmol/L (136-145) Potassium Level 4.2mmol/L (3.5-5.1) Chloride Level 100mmol/L (98-107) Carbon Dioxide Level 26mmol/L (21-32) Anion Gap 14 (6-14) Blood Urea Nitrogen 49mg/dL (8-26) Creatinine 4.5mg/dL (0.7-1.3) Estimated GFR (Cockcroft-Gault) 13.1 Glucose Level 146mg/dL (70-99) Lactic Acid Level 0.9mmol/L (0.4-2.0) Calcium Level 7.5mg/dL (8.5-10.1) Phosphorus Level 3.9mg/dL (2.6-4.7) Magnesium Level 1.6mg/dL (1.8-2.4) Albumin 2.5g/dL (3.4-5.0) Laboratory Tests Test 10/05/16 11:03 10/05/16 17:02 10/05/16 20:34 10/06/16 04:25 Glucose (Fingerstick) 113mg/dL (70-99) 73mg/dL (70-99) 139mg/dL (70-99) Sodium Level 140mmol/L (136-145) Potassium Level 4.2mmol/L (3.5-5.1) Chloride Level 100mmol/L (98-107) Carbon Dioxide Level 26mmol/L (21-32) Anion Gap 14 (6-14) Blood Urea Nitrogen 49mg/dL (8-26) Creatinine 4.5mg/dL (0.7-1.3) Estimated GFR (Cockcroft-Gault) 13.1 Glucose Level 146mg/dL (70-99) Lactic Acid Level 0.9mmol/L (0.4-2.0) Calcium Level 7.5mg/dL (8.5-10.1) Phosphorus Level 3.9mg/dL (2.6-4.7) Magnesium Level 1.6mg/dL (1.8-2.4) Albumin 2.5g/dL (3.4-5.0) Test 10/06/16 07:46 Glucose (Fingerstick) 165mg/dL (70-99) Problem List Problems Medical Problems: (1) C. difficile colitis Status: Acute (2) CAD (coronary artery disease) Status: Acute (3) ESRD (end stage renal disease) on dialysis Status: Acute (4) Periumbilical abdominal pain Status: Acute Assessment/Plan c diff treat medically dc per primary Problems: BEATA HARDY MD 10/06/16 1354: SURGICAL PROGRESS NOTE Assessment/Plan Pt seen and examined. Agree with MsJose Centeno's note feels better abd soft cont supportive care, OK for d/c Problems: LESLEE CENTENO APRN Oct 06, 2016 09:59 BEATA HARDY MD Oct 06, 2016 13:54
--- NOTE | 2016-10-06 10:16 | DS ---
DATE OF DISCHARGE: 10/06/2016 HOSPITAL SUMMARY: A 65-year-old white male with end-stage renal disease on dialysis, came in with progressive ongoing nausea and lower abdominal pain of unknown etiology. His white count initially was 21,000 and came down to 7600 and hemoglobin remained stable. Chemistry profile showed normal blood sugars, albumin low at 2.5 and creatinine elevated to 5 and 6, consistent with dialysis need. Serology had a C. diff positive toxin on 10/04/2016. CT scan of the abdomen and pelvis was unremarkable. Chest x-ray was clear. CTA of the chest was also within normal limits except for mild pleural effusions. He was evaluated and ultimately developed some more diarrhea and was found to have positive C. diff toxin. IV Flagyl was started and he immediately began to feel better and then switched to oral medication and is feeling still better at this time. He is comfortable to be followed as an outpatient at this point if GI consultants are comfortable as well. FINAL DIAGNOSES: 1. Abdominal pain and nausea secondary to Clostridium difficile colitis, etiology undetermined. 2. End-stage renal disease, on dialysis. 3. Leukocytosis secondary to Clostridium difficile colitis. OPERATIONS, PROCEDURES, AND COMPLICATIONS: None. CONSULTATIONS: Dr. Kuo, Dr. Atkins, Dr. Gomes. DISPOSITION: Flagyl 500 mg twice a day for 9 more days or as otherwise recommended by Dr. Atkins. Rest of the home meds remain the same. Office followup with Dr. Yang in 1 week and surgical and other specialists as needed. SANDEEP YANG MD DR: NIKOLAI/macho JOB#: [id number] / [id number]
--- NOTE | 2016-10-06 10:51 | PDOC ---
PROGRESS NOTES Subjective Subjective Patient is doing very well this morning. He says his abdominal pain is nearly gone now. He also denies chest pain and shortness of breath at this time. Objective Objective Vital Signs Date Time Temp Pulse Resp B/P Pulse Ox O2 Delivery O2 Flow Rate FiO2 10/06/16 08:15 Nasal Cannula 2.0 10/06/16 08:13 67 116/59 10/06/16 07:00 97.9 19 97 97.9 Intake and Output 10/06/16 07:00 Intake Total 524 ml Output Total 2 ml Balance 522 ml Intake Oral 524 ml Output Urine Total 0 ml Urine/Stool Mix 2 ml Physical Exam Heart: Regular rate, Normal S1, Normal S2, No murmurs Lungs: Clear to auscultation Assessment Assessment Problems Medical Problems: (1) C. difficile colitis Status: Acute (2) CAD (coronary artery disease) Status: Acute (3) ESRD (end stage renal disease) on dialysis Status: Acute (4) Periumbilical abdominal pain Status: Acute Plan Plan of Care Patient doing very well. He is under the understanding that he will be able to go tomorrow sometime after dialysis. I recommend continuing home medications and agree with this plan of discharge. Comment Review of Relevant I have reviewed the following items nicole (where applicable) has been applied. Labs Laboratory Tests Test 10/04/16 12:00 10/04/16 13:30 10/04/16 16:45 10/04/16 21:05 Glucose (Fingerstick) 155mg/dL (70-99) 154mg/dL (70-99) 170mg/dL (70-99) Clostridium difficile Toxin (PCR) Positive (Negative) Test 10/05/16 06:20 10/05/16 07:44 10/05/16 11:03 10/05/16 17:02 Sodium Level 138mmol/L (136-145) Potassium Level 4.4mmol/L (3.5-5.1) Chloride Level 99mmol/L (98-107) Carbon Dioxide Level 22mmol/L (21-32) Anion Gap 17 (6-14) Blood Urea Nitrogen 84mg/dL (8-26) Creatinine 6.8mg/dL (0.7-1.3) Estimated GFR (Cockcroft-Gault) 8.2 Glucose Level 182mg/dL (70-99) Lactic Acid Level 1.1mmol/L (0.4-2.0) Calcium Level 8.4mg/dL (8.5-10.1) Phosphorus Level 5.2mg/dL (2.6-4.7) Magnesium Level 2.1mg/dL (1.8-2.4) Albumin 2.6g/dL (3.4-5.0) Glucose (Fingerstick) 153mg/dL (70-99) 113mg/dL (70-99) 73mg/dL (70-99) Test 10/05/16 20:34 10/06/16 04:25 10/06/16 07:46 10/06/16 10:05 Glucose (Fingerstick) 139mg/dL (70-99) 165mg/dL (70-99) 187mg/dL (70-99) Sodium Level 140mmol/L (136-145) Potassium Level 4.2mmol/L (3.5-5.1) Chloride Level 100mmol/L (98-107) Carbon Dioxide Level 26mmol/L (21-32) Anion Gap 14 (6-14) Blood Urea Nitrogen 49mg/dL (8-26) Creatinine 4.5mg/dL (0.7-1.3) Estimated GFR (Cockcroft-Gault) 13.1 Glucose Level 146mg/dL (70-99) Lactic Acid Level 0.9mmol/L (0.4-2.0) Calcium Level 7.5mg/dL (8.5-10.1) Phosphorus Level 3.9mg/dL (2.6-4.7) Magnesium Level 1.6mg/dL (1.8-2.4) Albumin 2.5g/dL (3.4-5.0) Laboratory Tests Test 10/05/16 11:03 10/05/16 17:02 10/05/16 20:34 10/06/16 04:25 Glucose (Fingerstick) 113mg/dL (70-99) 73mg/dL (70-99) 139mg/dL (70-99) Sodium Level 140mmol/L (136-145) Potassium Level 4.2mmol/L (3.5-5.1) Chloride Level 100mmol/L (98-107) Carbon Dioxide Level 26mmol/L (21-32) Anion Gap 14 (6-14) Blood Urea Nitrogen 49mg/dL (8-26) Creatinine 4.5mg/dL (0.7-1.3) Estimated GFR (Cockcroft-Gault) 13.1 Glucose Level 146mg/dL (70-99) Lactic Acid Level 0.9mmol/L (0.4-2.0) Calcium Level 7.5mg/dL (8.5-10.1) Phosphorus Level 3.9mg/dL (2.6-4.7) Magnesium Level 1.6mg/dL (1.8-2.4) Albumin 2.5g/dL (3.4-5.0) Test 10/06/16 07:46 10/06/16 10:05 Glucose (Fingerstick) 165mg/dL (70-99) 187mg/dL (70-99) Medications Current Medications Hydromorphone HCl (Dilaudid) 0.5 mg PRN Q1HR PRN IV SEVERE PAIN Last administered on 10/01/16 01:11; Start 09/30/16 at 21:45; Stop 10/01/16 at 01:11 ; Status DC Ondansetron HCl 4 mg 4 mg 1X ONCE IV Last administered on 09/30/16 21:45; Start 09/30/16 at 21:45; Stop 09/30/16 at 21:46; Status DC Sodium Chloride (Iv Sodium Chloride 0.9% 500ml Bag) 500 ml @ 500 mls/hr 1X ONCE IV ; Start 09/30/16 at 21:45; Stop 09/30/16 at 23:05; Status DC Ondansetron HCl (Zofran) 4 mg PRN Q8HRS PRN IV NAUSEA/VOMITING Last administered on 10/01/16 14:37; Start 09/30/16 at 23:00; Stop 10/01/16 at 22:59 ; Status DC Morphine Sulfate 2 mg PRN Q2HR PRN IV PAIN Last administered on 10/01/16 20:25 ; Start 09/30/16 at 23:00; Stop 10/01/16 at 22:59; Status DC Hydromorphone HCl (Dilaudid) 0.5 mg PRN Q4HRS PRN IV PAIN Last administered on 10/06/16 05:42; Start 10/01/16 at 01:30 Calcium Acetate (Phoslo) 667 mg TIDWMEALS PO Last administered on 10/06/16 08: 13; Start 10/01/16 at 08:30 Famotidine (Pepcid) 20 mg QHS PO Last administered on 10/01/16 20:25; Start at 21:00; Stop 10/02/16 at 10:57; Status DC Gabapentin (Neurontin) 100 mg BID PO Last administered on 10/06/16 08:13; Start 10/01/16 at 09:00 Nitroglycerin (Nitrostat) 0.4 mg PRN Q1HR PRN SL CHEST PAIN; Start 10/01/16 at 08:00 Oxycodone/ Acetaminophen (Percocet 7.5/ 325) 1 tab TID PRN PO PAIN Last administered on 10/04/16 21:21; Start 10/01/16 at 08:00 Polyethylene Glycol (miraLAX PACKET) 17 gm PRN DAILY PRN PO CONSTIPATION; Start 10/01/16 at 09:00; Stop 10/02/16 at 21:00; Status DC Ranolazine (Ranexa) 500 mg DAILY PO Last administered on 10/06/16 08:13; Start 10/01/16 at 09:00 Tamsulosin HCl (Flomax) 0.4 mg HS PO Last administered on 10/05/16 20:42; Start 10/01/16 at 21:00 Insulin Aspart (Novolog) 0-7 UNITS TIDWMEALS SQ Last administered on 10/06/16 08:21; Start 10/01/16 at 12:00 Dextrose 12.5 gm 12.5 gm PRN Q15MIN PRN IV SEE COMMENTS; Start 10/01/16 at 08: 15 Magnesium Sulfate/ Dextrose (Magnesium Sulfate PREMIX 2GM) 50 ml @ 25 mls/hr PRN DAILY PRN IV for Mag < 1.7 on am labs; Start 10/01/16 at 09:30 Iohexol (Omnipaque 240 Mg/ml) 30 ml 1X ONCE PO ; Start 10/01/16 at 10:00; Stop 10/01/16 at 10:01; Status DC Iohexol (Omnipaque 300 Mg/ml) 75 ml 1X ONCE IV Last administered on 10/01/16 13:17; Start 10/01/16 at 10:00; Stop 10/01/16 at 10:01; Status DC Info (Do NOT chart on this entry -- for MONITORING) 1 each PRN DAILY PRN MC SEE COMMENTS; Start 10/01/16 at 10:00; Stop 10/03/16 at 10:00; Status DC Info 1 each 1 each PRN DAILY PRN MC SEE COMMENTS; Start 10/01/16 at 16:30 Sodium Chloride (Iv Sodium Chloride 0.9% 1000ml Bag) 1,000 ml @ 1,000 mls/hr Q1H PRN IV hypotension; Start 10/02/16 at 07:51; Stop 10/02/16 at 13:50; Status DC Diphenhydramine HCl (Benadryl) 25 mg 1X PRN PRN IV ITCHING; Start 10/02/16 at 08:00; Stop 10/03/16 at 07:59; Status DC Diphenhydramine HCl (Benadryl) 25 mg 1X PRN PRN IV ITCHING; Start 10/02/16 at 08:00; Stop 10/03/16 at 07:59; Status DC Labetalol HCl 10 mg 10 mg PRN Q1HR PRN IVP SBP > 180; Start 10/02/16 at 08:00; Stop 10/02/16 at 22:16; Status DC Sodium Chloride (Iv Sodium Chloride 0.9% 1000ml Bag) 1,000 ml @ 400 mls/hr Q2H30M PRN IV PATENCY; Start 10/02/16 at 07:51; Stop 10/02/16 at 19:50; Status DC Info (PHARMACY MONITORING -- do not chart) 1 each PRN DAILY PRN MC SEE COMMENTS ; Start 10/02/16 at 08:00; Status UNV Lidocaine HCl (Xylocaine-Mpf 1% Vial) 1 ml 1X ONCE ID Last administered on 08:28; Start 10/02/16 at 08:00; Stop 10/02/16 at 08:01; Status DC Insulin Detemir (Levemir) 20 units DAILY08 SQ ; Start 10/02/16 at 10:00 Ondansetron HCl 4 mg 4 mg 1X STAT IV Last administered on 10/02/16 09:35; Start 10/02/16 at 09:25; Stop 10/02/16 at 09:28; Status DC Albumin Human (Albuminar) 200 ml @ 200 mls/hr 1X STAT IV Last administered on 10/02/16 10:49; Start 10/02/16 at 10:41; Stop 10/02/16 at 11:40; Status DC Polyethylene Glycol (miraLAX PACKET) 17 gm BID PO Last administered on 09:20; Start 10/02/16 at 12:00; Stop 10/06/16 at 08:09; Status DC Pantoprazole Sodium (Protonix) 40 mg DAILYAC PO Last administered on 10/06/16 05:41; Start 10/02/16 at 12:00 Lubiprostone (Amitiza) 8 mcg BIDWMEALS PO ; Start 10/02/16 at 12:00 Ondansetron HCl (Zofran) 4 mg PRN Q8HRS PRN IV NAUSEA/VOMITING Last administered on 10/02/16 13:29; Start 10/02/16 at 13:15; Stop 10/02/16 at 14:06 ; Status DC Ondansetron HCl 4 mg 4 mg PRN Q4HRS PRN IV NAUSEA/VOMITING Last administered on 10/04/16 11:50; Start 10/02/16 at 14:15 Sodium Chloride 1,000 ml @ 75 mls/hr [id number] IV ; Start 10/03/16 at 11:00; Stop 10/03/16 at 11:53; Status DC Sodium Chloride 1,000 ml @ 75 mls/hr [id number] IV Last administered on 21:28; Start 10/03/16 at 11:51; Stop 10/04/16 at 09:00; Status DC Metronidazole (FLAGYL 500Mmg PREMIX) 100 ml @ 100 mls/hr Q8HRS IV Last administered on 10/05/16 05:28; Start 10/03/16 at 14:00; Stop 10/05/16 at 13:43 ; Status DC Lidocaine HCl (Xylocaine-Mpf 1% Vial) 2 ml STK-MED ONCE .ROUTE ; Start 10/05/16 at 12:07; Stop 10/05/16 at 12:08; Status DC Metronidazole 500 mg 500 mg Q8HRS PO ; Start 10/05/16 at 14:00; Stop 10/05/16 at 14:14; Status DC Sodium Chloride (Iv Sodium Chloride 0.9% 1000ml Bag) 1,000 ml @ 1,000 mls/hr Q1H PRN IV hypotension; Start 10/05/16 at 13:44; Stop 10/05/16 at 19:43; Status DC Info (PHARMACY MONITORING -- do not chart) 1 each PRN DAILY PRN MC SEE COMMENTS ; Start 10/05/16 at 13:45; Status UNV Info (PHARMACY MONITORING -- do not chart) 1 each PRN DAILY PRN MC SEE COMMENTS ; Start 10/05/16 at 13:45; Status UNV Metronidazole (Flagyl) 500 mg BID PO Last administered on 10/06/16t 08:13; Start 10/05/16 at 15:00 Active Scripts Active Reported Humulin 70-30 Vial (Hum Insulin Nph/Reg Insulin Hm) 100 Unit/1 Ml Vial 20 Unit SQ BIDWMEALS Gabapentin 100 Mg Capsule 100 Mg PO BID Ranexa (Ranolazine) 500 Mg Tab.er.12h 1 Tab PO DAILY Phoslo (Calcium Acetate) 667 Mg Capsule 667 Mg PO TIDWMEALS Polyethylene Glycol 3350 255 Gm Powder 17 Gm PO DAILY PRN Anoro Ellipta 62.5-25 Mcg Inh (Umeclidinium Brm/Vilanterol Tr) 1 Each Disk.w.dev 1 Each IH DAILY Clopidogrel (Clopidogrel Bisulfate) 75 Mg Tablet 1 Tab PO DAILY Percocet 7.5-325 Mg Tablet (Oxycodone/Acetaminophen) 1 Each Tablet 1 Tab PO TID PRN Dialyvite 800 Tablet (Folic Acid/Vitamin B Comp W-C) 0.8 Mg Tablet 0.8 Mg PO DAILY NITROGLYCERIN SubLingual (Nitroglycerin) 0.4 Mg Tab.subl 0.4 Mg SL PRN Allopurinol 300 Mg Tablet 300 Mg PO DAILY Pepcid (Famotidine) 20 Mg Tablet 20 Mg PO QHS Lanoxin (Digoxin) 125 Mcg Tablet 125 Mcg PO DAILY Flomax (Tamsulosin Hcl) 0.4 Mg Cap.er.24h 0.4 Mg PO HS Aspirin 81 Mg Tab.chew 81 Mg PO DAILY Vitals/I & O Vital Sign - Last 24 Hours 2/27/17 2/27/17 2/27/17 2/27/17 11:26 15:00 18:19 19:00 Temp 95.0 97.5 98.8 95.0 97.5 98.8 Pulse 70 69 69 Resp 18 18 18 B/P 99/27 121/68 112/50 Pulse Ox 98 93 96 O2 Delivery Nasal Cannula Nasal Cannula Nasal Cannula Room Air O2 Flow Rate 2.0 2.0 2.0 10/05/16 10/05/16 10/06/16 10/06/16 19:25 22:30 01:42 05:42 Temp 98.4 98.4 Pulse 67 Resp 18 16 14 B/P 116/59 Pulse Ox 100 100 100 O2 Delivery Nasal Cannula Nasal Cannula Nasal Cannula Nasal Cannula O2 Flow Rate 2.0 2.0 2.0 10/06/16 10/06/16 10/06/16 10/06/16 06:10 07:00 08:13 08:15 Temp 97.9 97.9 Pulse 72 67 Resp 16 19 B/P 117/59 116/59 Pulse Ox 100 97 O2 Delivery Nasal Cannula Nasal Cannula Nasal Cannula O2 Flow Rate 2.0 2.0 Intake and Output 10/05/16 10/05/16 10/06/16 15:00 23:00 07:00 Intake Total 354 ml 170 ml Output Total 2 ml 0 ml Balance 354 ml -2 ml 170 ml LEXI ALTAMIRANO MD Oct 06, 2016 10:51
[2016-10-06 10:53] VITALS: BP 103/56
--- NOTE | 2016-10-06 11:01 | PDOC ---
Renal-Progress Notes Subjective Notes Notes STILL SOME DIARRHEA BUT BETTER History of Present Illness Hx of present illness BETTER Vitals Vitals Vital Signs Date Time Temp Pulse Resp B/P Pulse Ox O2 Delivery O2 Flow Rate FiO2 10/06/16 10:53 98.4 72 19 103/56 100 Nasal Cannula 98.4 10/06/16 08:15 2.0 Weight Weight [ ] I.O. Intake and Output Intake and Output 10/06/16 07:00 Intake Total 524 ml Output Total 2 ml Balance 522 ml Intake Oral 524 ml Output Urine Total 0 ml Urine/Stool Mix 2 ml Labs Labs Laboratory Tests Test 10/05/16 11:03 10/05/16 17:02 10/05/16 20:34 10/06/16 04:25 Glucose (Fingerstick) 113mg/dL (70-99) 73mg/dL (70-99) 139mg/dL (70-99) Sodium Level 140mmol/L (136-145) Potassium Level 4.2mmol/L (3.5-5.1) Chloride Level 100mmol/L (98-107) Carbon Dioxide Level 26mmol/L (21-32) Anion Gap 14 (6-14) Blood Urea Nitrogen 49mg/dL (8-26) Creatinine 4.5mg/dL (0.7-1.3) Estimated GFR (Cockcroft-Gault) 13.1 Glucose Level 146mg/dL (70-99) Lactic Acid Level 0.9mmol/L (0.4-2.0) Calcium Level 7.5mg/dL (8.5-10.1) Phosphorus Level 3.9mg/dL (2.6-4.7) Magnesium Level 1.6mg/dL (1.8-2.4) Albumin 2.5g/dL (3.4-5.0) Test 10/06/16 07:46 10/06/16 10:05 Glucose (Fingerstick) 165mg/dL (70-99) 187mg/dL (70-99) Review of Systems Constitutional: yes: alert, oriented, weakness Ears/Nose/Throat: Yes: no symptom reported Eyes: Yes: no symptom reported Pulmonary: Yes no symptom reported Cardiovascular: Yes no symptom reported Gastrointestional: Yes: abdominal pain Genitourinary: Yes: no symptom reported Musculoskeletal: Yes: muscle stiffness Skin: Yes no symptom reported Physical Exam General Appearance: no apparent distress Skin: warm Respiratory: decreased breath sounds Heart: S1S2, RRR Abdomen: soft, bowel sounds present Genitourinary: bladder flat Extremities: pulses present Neurology: alert Musculoskeletal: Muscle atrophy, Weakness Assessment Assessment IMP ANEMIA ABD PAIN DIARRHEA-BETTER ESRD PLAN HD TOMORROW WILL FOLLOW NAVIN ACEVEDO MD Oct 06, 2016 11:01
--- NOTE | 2016-10-06 12:36 | PDOC ---
Subjective: Subjective: Feeling much better. Almost no abd pain. Had a small stool earlier. Eating okay. Objective: Vital Signs: Vital Signs Date Time Temp Pulse Resp B/P Pulse Ox O2 Delivery O2 Flow Rate FiO2 10/06/16 10:53 98.4 72 19 103/56 100 Nasal Cannula 98.4 10/06/16 08:15 2.0 Labs: Laboratory Tests Test 10/05/16 17:02 10/05/16 20:34 10/06/16 04:25 10/06/16 07:46 Glucose (Fingerstick) 73mg/dL 139mg/dL 165mg/dL Sodium Level 140mmol/L Potassium Level 4.2mmol/L Chloride Level 100mmol/L Carbon Dioxide Level 26mmol/L Anion Gap 14 Blood Urea Nitrogen 49mg/dL Creatinine 4.5mg/dL Estimated GFR (Cockcroft-Gault) 13.1 Glucose Level 146mg/dL Lactic Acid Level 0.9mmol/L Calcium Level 7.5mg/dL Phosphorus Level 3.9mg/dL Magnesium Level 1.6mg/dL Albumin 2.5g/dL Test 10/06/16 10:05 Glucose (Fingerstick) 187mg/dL PE: GEN: NAD, up to chair LUNGS: clear anteriorly HEART: RRR ABD: BS+, non-tender NEURO/PSYCH: A & O 3 A/P: C Diff -on Flagyl PO, has previously taken vanco Abdominal pain w/ n/v - improved -h/o colon cancer, h/o constipation, h/o GERD, also C Diff as above -- Feeling better w/ less abd pain. Possible DC today - continue Flagyl for C Diff. KARIS CHAIREZ Oct 06, 2016 12:36
[2016-10-06 15:03] VITALS: BP 91/28
== END 2016-10-06 16:52 | disposition home or self-care (01) | DRG 371 ==
LOC: ER 20:06 → 5 NORTH 22:39
PROVIDERS: ADMIT Family Medicine; ATTEND Family Medicine
PROC: 5A1D60Z (ICD-10-PCS; principal; 2016-10-02)
DX: A04.7 Enterocolitis due to Clostridium difficile (principal); E43 Unspecified severe protein-calorie malnutrition; N18.6 End stage renal disease; K56.5 Intestinal adhesions [bands] with obstruction (postinfection); I50.22 Chronic systolic (congestive) heart failure; E87.2 Acidosis; I42.9 Cardiomyopathy, unspecified; I13.2 Hypertensive heart and chronic kidney disease with heart failure and with stage 5 chronic kidney disease, or end stage renal disease; E11.22 Type 2 diabetes mellitus with diabetic chronic kidney disease; E11.621 Type 2 diabetes mellitus with foot ulcer; D17.9 Benign lipomatous neoplasm, unspecified; D64.9 Anemia, unspecified; I25.10 Atherosclerotic heart disease of native coronary artery without angina pectoris; I27.2 Other secondary pulmonary hypertension; I34.0 Nonrheumatic mitral (valve) insufficiency; I48.91 Unspecified atrial fibrillation; D72.829 Elevated white blood cell count, unspecified; R10.33 Periumbilical pain; K21.9 Gastro-esophageal reflux disease without esophagitis; K59.00 Constipation, unspecified; L97.529 Non-pressure chronic ulcer of other part of left foot with unspecified severity; M10.9 Gout, unspecified; Z85.038 Personal history of other malignant neoplasm of large intestine; Z90.5 Acquired absence of kidney; Z68.23 Body mass index [BMI] 23.0-23.9, adult; Z90.49 Acquired absence of other specified parts of digestive tract; Z95.0 Presence of cardiac pacemaker; Z88.8 Allergy status to other drugs, medicaments and biological substances; Z98.49 Cataract extraction status, unspecified eye; Z87.891 Personal history of nicotine dependence; Z79.899 Other long term (current) drug therapy; S30.1XXA Contusion of abdominal wall, initial encounter
CPT/HCPCS: 36415; 71010; 71275; 74176; 74177; 80048; 80053; 80069; 80076; 82947; 83605; 83615; 83690; 83735; 83880; 84100; 84484; 85007; 85018; 85027; 87324; 87641; 93005; 93306; 96374; J1170; J1815; J2270; J2405; J3490; J7030; J7040; P9046; Q9967; 99285-25

== ENCOUNTER → 2016-10-26 | Outpatient (CLI) | payer MEDICARE, OTHER ==
[2016-10-19 10:16] VITALS: BP 106/58
== END | disposition home or self-care (01) ==
LOC: PMGWOUND 10:05
PROVIDERS: ATTEND Emergency Medicine Undersea and Hyperbaric Medicine
DX: E11.621 Type 2 diabetes mellitus with foot ulcer (principal); E11.622 Type 2 diabetes mellitus with other skin ulcer; I87.312 Chronic venous hypertension (idiopathic) with ulcer of left lower extremity; L97.221 Non-pressure chronic ulcer of left calf limited to breakdown of skin; L97.523 Non-pressure chronic ulcer of other part of left foot with necrosis of muscle; E11.22 Type 2 diabetes mellitus with diabetic chronic kidney disease; I13.2 Hypertensive heart and chronic kidney disease with heart failure and with stage 5 chronic kidney disease, or end stage renal disease; N18.6 End stage renal disease; I50.22 Chronic systolic (congestive) heart failure; K21.9 Gastro-esophageal reflux disease without esophagitis; M10.9 Gout, unspecified; E11.51 Type 2 diabetes mellitus with diabetic peripheral angiopathy without gangrene; Z85.038 Personal history of other malignant neoplasm of large intestine; Z87.891 Personal history of nicotine dependence; Z95.1 Presence of aortocoronary bypass graft; I48.91 Unspecified atrial fibrillation; Z99.2 Dependence on renal dialysis
CPT/HCPCS: 11042; 97597

== ENCOUNTER → 2016-11-02 | Outpatient (CLI) | payer MEDICARE, OTHER ==
[2016-10-19 10:16] VITALS: BP 106/58
== END | disposition home or self-care (01) ==
LOC: PMGWOUND 10:08
PROVIDERS: ATTEND Emergency Medicine Undersea and Hyperbaric Medicine
DX: E11.621 Type 2 diabetes mellitus with foot ulcer (principal); L97.521 Non-pressure chronic ulcer of other part of left foot limited to breakdown of skin; E11.622 Type 2 diabetes mellitus with other skin ulcer; I87.312 Chronic venous hypertension (idiopathic) with ulcer of left lower extremity; L97.221 Non-pressure chronic ulcer of left calf limited to breakdown of skin; E11.22 Type 2 diabetes mellitus with diabetic chronic kidney disease; I13.2 Hypertensive heart and chronic kidney disease with heart failure and with stage 5 chronic kidney disease, or end stage renal disease; I50.22 Chronic systolic (congestive) heart failure; N18.6 End stage renal disease; K21.9 Gastro-esophageal reflux disease without esophagitis; E11.52 Type 2 diabetes mellitus with diabetic peripheral angiopathy with gangrene; I48.91 Unspecified atrial fibrillation; J44.9 Chronic obstructive pulmonary disease, unspecified; Z68.23 Body mass index [BMI] 23.0-23.9, adult; Z87.891 Personal history of nicotine dependence; Z99.2 Dependence on renal dialysis; Z85.038 Personal history of other malignant neoplasm of large intestine
CPT/HCPCS: 99215

== ENCOUNTER → 2016-11-09 | Outpatient (CLI) | payer MEDICARE, OTHER ==
[2016-10-19 10:16] VITALS: BP 106/58
== END | disposition home or self-care (01) ==
LOC: PMGWOUND 10:06
PROVIDERS: ATTEND Emergency Medicine Undersea and Hyperbaric Medicine
DX: I87.312 Chronic venous hypertension (idiopathic) with ulcer of left lower extremity (principal); E11.622 Type 2 diabetes mellitus with other skin ulcer; L97.221 Non-pressure chronic ulcer of left calf limited to breakdown of skin; E11.621 Type 2 diabetes mellitus with foot ulcer; L97.521 Non-pressure chronic ulcer of other part of left foot limited to breakdown of skin; E11.22 Type 2 diabetes mellitus with diabetic chronic kidney disease; I13.2 Hypertensive heart and chronic kidney disease with heart failure and with stage 5 chronic kidney disease, or end stage renal disease; I50.22 Chronic systolic (congestive) heart failure; N18.6 End stage renal disease; Z99.2 Dependence on renal dialysis; K21.9 Gastro-esophageal reflux disease without esophagitis; E11.52 Type 2 diabetes mellitus with diabetic peripheral angiopathy with gangrene; I48.2 Chronic atrial fibrillation; I25.10 Atherosclerotic heart disease of native coronary artery without angina pectoris; Z85.038 Personal history of other malignant neoplasm of large intestine; Z87.891 Personal history of nicotine dependence
CPT/HCPCS: 15275; Q4132

== ENCOUNTER → 2016-11-12 | Outpatient (CLI) | payer MEDICARE, OTHER ==
[2016-10-19 10:16] VITALS: BP 106/58
[~2016-11-12] MED LIST changes: +CONTRAST GIVEN MC PRN; +IOHEXOL 300 MG/ML 75 ML VIAL IV ONE
--- NOTE | 2016-11-12 17:12 | RAD ---
CT left lower extremity with intravenous contrast left foot pain since April, nonhealing ulcer History: Nonhealing ulcer. Comparison: None. Technique: CT of left foot was performed after intravenous contrast administration, 75 mL Omnipaque 350. Axial, sagittal, coronal reconstructions were obtained. One or more of the following individualized dose reduction techniques were utilized for the study: Automated exposure control Adjustment of mA and/or kV according to patient's size Use of iterative reconstruction technique. Findings: Site of the ulcer was not specified. Plantar calcaneal and Achilles tendon insertional enthesophytes are seen. No acute fracture or dislocation is identified. No convincing osteolysis is seen to suggest osteomyelitis. No focal, peripherally enhancing fluid collection is identified to suggest soft tissue abscess. Mild mid foot degeneration is seen. Arterial calcifications are present. Impression: 1. No CT evidence of osteomyelitis, although such would be a late finding. 2. No focal soft tissue abscess identified.
== END | disposition home or self-care (01) ==
LOC: CT 14:41
DX: L97.529 Non-pressure chronic ulcer of other part of left foot with unspecified severity (principal); M79.672 Pain in left foot
CPT/HCPCS: 73701; Q9967

== ENCOUNTER 2016-11-16 13:54 | Inpatient (IN) | payer MEDICARE, OTHER ==
[~2016-11-16] VITALS: Ht 167.6 cm; Wt 70.9 kg
[~2016-11-16 13:54] MED LIST changes: -CONTRAST GIVEN MC PRN; -IOHEXOL 300 MG/ML 75 ML VIAL IV ONE
[2016-11-16] MEDS ORDERED: ASPIRIN 325 MG TABLET PO ONE (14:15)
[2016-11-16 14:47] LABS: BASO # 0.1 x10^3/uL (0.0-0.2); BASO % 1 % (0-3); EOS % 1 % (0-3); HEMATOCRIT 34.9 % (39.0-53.0); HEMOGLOBIN 11.3 g/dL (13.0-17.5); LYMPH % 10 % (24-48); MEAN CORPUSCULAR HEMOGLOBIN 32 pg (25-35); MEAN CORPUSCULAR HGB CONC 32 g/dL (31-37); MEAN CORPUSCULAR VOLUME 98 fL (79-100); MONO % 7 % (0-9); NEUT % 82 % (31-73); PLATELET COUNT 160 x10^3/uL (140-400); RED BLOOD COUNT 3.57 x10^6/uL (4.30-5.70); RED CELL DISTRIBUTION WIDTH 16.4 % (11.5-14.5); WHITE BLOOD COUNT 10.4 x10^3/uL (4.0-11.0)
[2016-11-16] MEDS: MORPHINE SULFATE 4 MG/ML DISP.SYRIN. IV/SQ PRN ×2 (14:49→16:26)
[2016-11-16 14:54] LABS: INR 1.2 (0.8-1.1); PROTHROMBIN TIME PATIENT 14.6 SEC (11.7-14.0)
[2016-11-16 15:04] LABS: CALCIUM 8.7 mg/dL (8.5-10.1); GFR 15.1
--- NOTE | 2016-11-16 15:09 | RAD ---
Portable chest, 11/16/2016: History: Chest pain Comparison is made to a study from 10/02/2016. A left-sided AICD remains in place extending into the right ventricle. There has been a previous median sternotomy. The heart is mildly enlarged. There is calcific plaquing of the aorta. The pulmonary vascularity is normal. No pulmonary infiltrates are seen. There is no evidence of pleural fluid. IMPRESSION: 1. Cardiomegaly. 2. No acute abnormality is detected.
[2016-11-16 15:12] LABS: ALBUMIN 2.9 g/dL (3.4-5.0); ALBUMIN/GLOBULIN RATIO 0.7 (1.0-1.7); TOTAL BILIRUBIN 0.7 mg/dL (0.2-1.0); TOTAL PROTEIN 6.8 g/dL (6.4-8.2)
[2016-11-16] MEDS ORDERED: ONDANSETRON PF 4 MG/2 ML VIAL. IV PRN (16:15)
[2016-11-16] MEDS ORDERED: NITROGLYCERIN SUBLINGUAL 0.4 MG BOTTLE OF 25. SL PRN (16:15)
[2016-11-16] MEDS ORDERED: ACETAMINOPHEN 325 MG TABLET. PO PRN (16:15)
--- NOTE | 2016-11-16 16:43 | EKG ---
[facility] [address] [place] [id number] Test Date: 2016-11-16 Test Time: 14:02:31 Pat Name: MELIDA YANG Department: Room: Gender: M [employer] Operator: : [id number] Requested By: JAZLYN RAHMAN Order Number: [id number] Reading MD: Measurements Intervals [place] Rate: 80 P: OR: QRS: -56 QRSD: 136 T: 126 QT: 384 QTc: 447 Interpretive Statements IRREGULAR RHYTHM, NO P-WAVE FOUND ABNORMAL LEFT AXIS DEVIATION LOW LIMB LEAD VOLTAGE NON SPECIFIC INTRAVENTRICULAR BLOCK QRS(T) CONTOUR ABNORMALITY CONSIDER ANTEROSEPTAL MYOCARDIAL DAMAGE RI6.01 No previous ECG available for comparison
[2016-11-16 18:02] VITALS: BP 136/79
[2016-11-16] MEDS: MORPHINE SULFATE 2 MG/ML DISP.SYRIN. IV PRN (19:41)
[2016-11-16] MEDS: IPRATRPIUM/ALBUTEROL 0.5/2.5MG 3 ML NEBU. NEB SCH (19:43)
[2016-11-16 19:45] VITALS: BP 124/69
--- NOTE | 2016-11-16 20:03 | PHYS DOC ---
Past Medical History Past Medical History: A-Fib, Cancer, CHF, COPD, Diabetes-Type II, Heart Disease , Hypertension, Renal Failure Additional Past Medical Histor: sleep apnea Past Surgical History: Cancer Surgery, Cholecystectomy, Coronary Bypass Surgery , Pacemaker, Other Additional Past Surgical Histo: "KIDNEY REMOVED" Alcohol Use: None Drug Use: None Adult General Chief Complaint Chief Complaint: CHEST PAIN HPI HPI Patient is a 65 year old male who presents with chest pain. Patient reports onset of left-sided chest pressure/tightness radiating to left arm, with onset about one hour prior to arrival while at rest. Reports associated shortness of breath, nausea, diaphoresis. States pain is improving at time of my evaluation. Denies associated fevers or chills, cough, lower extremity pain or swelling. He reports chronic wounds to left lower leg. He has history of CAD status post CABG and multiple cardiac stents, diabetes, hypertension, end-stage renal disease, former smoker. PCP is Dr. Calazda and semiconductor packages leak tester is Dr. Matthews. Review of Systems Review of Systems Constitutional: Denies fever or chills Eyes: Denies change in visual acuity HENT: Denies nasal congestion or sore throat Respiratory: Denies cough, reports shortness of breath Cardiovascular: Reports chest pain, denies edema GI: Reports nausea. Denies abdominal pain, vomiting, bloody stools or diarrhea : Denies dysuria or hematuria Musculoskeletal: Denies back pain or joint pain Integument: Denies rash or skin lesions Neurologic: Denies headache, focal weakness or sensory changes Current Medications Current Medications Current Medications Medications (Trade) Dose Ordered Sig/Andrew Start Time Stop Time Status Last Admin Dose Admin Aspirin (Ant Aspirin) 325 mg 1X ONCE 11/16/16 14:15 11/16/16 14:28 DC Morphine Sulfate 4 mg PRN Q15MIN PRN 11/16/16 14:30 11/17/16 14:29 11/16/16 16:26 4 MG Allergies Allergies Allergies Coded Allergies Type Severity Reaction Last Updated Verified adhesive Allergy Severe STERI STRIPS- PEELING SKIN 08/25/16 Yes Physical Exam Physical Exam Constitutional: Well developed, well nourished, no acute distress, non-toxic appearance. HENT: Normocephalic, atraumatic, bilateral external ears normal, oropharynx moist, nose normal. Eyes: PERRLA, EOMI, conjunctiva normal, no discharge. Neck: supple, no stridor. Cardiovascular: RRR, no murmurs, no edema. Lungs & Thorax: LCTAB, no wheezing, no respiratory distress. Reproducible tenderness with palpation over left anterior chest wall Abdomen: soft, nontender, nondistended. Skin: Warm, dry, no erythema, no rash. Back: No tenderness. Extremities: No tenderness, no edema. No calf tenderness or swelling. Bandages to left lower extremity are left in place per the patient's request, followed by wound care. Neurologic: Alert and oriented X 3, no focal deficits noted. Psychologic: Affect normal, judgement normal, mood normal. Current Patient Data Vital Signs Vital Signs Date Time Temp Pulse Resp B/P Pulse Ox O2 Delivery O2 Flow Rate FiO2 11/16/16 15:06 83 20 119/60 98 Nasal Cannula 2 11/16/16 14:15 98.0 98.0 Lab Values Laboratory Tests Test 11/16/16 14:30 White Blood Count 10.4x10^3/uL (4.0-11.0) Red Blood Count 3.57x10^6/uL (4.30-5.70) L Hemoglobin 11.3g/dL (13.0-17.5) L Hematocrit 34.9% (39.0-53.0) L Mean Corpuscular Volume 98fL (79-100) Mean Corpuscular Hemoglobin 32pg (25-35) Mean Corpuscular Hemoglobin Concent 32g/dL (31-37) Red Cell Distribution Width 16.4% (11.5-14.5) H Platelet Count 160x10^3/uL (140-400) Neutrophils (%) (Auto) 82% (31-73) H Lymphocytes (%) (Auto) 10% (24-48) L Monocytes (%) (Auto) 7% (0-9) Eosinophils (%) (Auto) 1% (0-3) Basophils (%) (Auto) 1% (0-3) Neutrophils # (Auto) 8.5x10^3uL (1.8-7.7) H Lymphocytes # (Auto) 1.0x10^3/uL (1.0-4.8) Monocytes # (Auto) 0.7x10^3/uL (0.0-1.1) Eosinophils # (Auto) 0.1x10^3/uL (0.0-0.7) Basophils # (Auto) 0.1x10^3/uL (0.0-0.2) Prothrombin Time 14.6SEC (11.7-14.0) H Prothrombin Time INR 1.2 (0.8-1.1) H PTT 29SEC (24-38) Sodium Level 140mmol/L (136-145) Potassium Level 4.0mmol/L (3.5-5.1) Chloride Level 99mmol/L (98-107) Carbon Dioxide Level 31mmol/L (21-32) Anion Gap 10 (6-14) Blood Urea Nitrogen 36mg/dL (8-26) H Creatinine 4.0mg/dL (0.7-1.3) H Estimated GFR (Cockcroft-Gault) 15.1 BUN/Creatinine Ratio 9 (6-20) Glucose Level 153mg/dL (70-99) H Calcium Level 8.7mg/dL (8.5-10.1) Total Bilirubin 0.7mg/dL (0.2-1.0) Aspartate Amino Transferase (AST) 18U/L (15-37) Alanine Aminotransferase (ALT) 12U/L (16-63) L Alkaline Phosphatase 166U/L (46-116) H Troponin I Quantitative 0.075ng/mL (0.000-0.055) VM-Ejp-A-Type Natriuretic Peptide > 93077ca/mL (0-124) H Total Protein 6.8g/dL (6.4-8.2) Albumin 2.9g/dL (3.4-5.0) L Albumin/Globulin Ratio 0.7 (1.0-1.7) L Laboratory Tests 11/16/16 14:30 Laboratory Tests 11/16/16 14:30 EKG EKG Interpreted by me: Irregular rate 80, paced rhythm [] Radiology/Procedures Radiology/Procedures PROCEDURE: CHEST AP ONLY Portable chest, 11/16/2016: History: Chest pain Comparison is made to a study from 10/02/2016. A left-sided AICD remains in place extending into the right ventricle. There has been a previous median sternotomy. The heart is mildly enlarged. There is calcific plaquing of the aorta. The pulmonary vascularity is normal. No pulmonary infiltrates are seen. There is no evidence of pleural fluid. IMPRESSION: 1. Cardiomegaly. 2. No acute abnormality is detected. DICTATED and SIGNED BY: QUENTIN GONZALEZ MD DATE: 11/16/16 1506[] Course & Med Decision Making Course & Med Decision Making Pertinent Labs and Imaging studies reviewed. (See chart for details) The patient presents with chest pain. Aspirin administered upon arrival. Gave morphine for pain. Obtained labs, EKG, chest x-ray. Patient found to have slightly elevated troponin without STEMI. On previous admission troponin was > 0.1. Consulted with Dr. Matthews. He recommends admission to the hospital for further evaluation and treatment. The patient agrees with plan of care. Discussed with Dr. Calzada who agrees to admit to inpatient status. The patient is admitted in stable condition. Dragon Disclaimer Dragon Disclaimer This electronic medical record was generated, in whole or in part, using a voice recognition dictation system. Departure Departure Impression: Primary Impression: Chest pain Additional Impressions: Elevated troponin Anemia End stage renal disease Disposition: ADMITTED INPATIENT Admitting Physician: Mario Calzada Condition: STABLE Problem Qualifiers JAZLYN RAHMAN MD Nov 16, 2016 20:03
[2016-11-16 23:35] VITALS: BP 125/72
[2016-11-17] MEDS: MORPHINE SULFATE 2 MG/ML DISP.SYRIN. IV PRN ×2 (00:19→03:51)
[2016-11-17 03:00] VITALS: BP 118/68
--- NOTE | 2016-11-17 05:03 | ACF ---
Admit Criteria Forms Admit Criteria Forms Admit Criteria Forms CHEST PAIN Clinical Indications for Admission to Inpatient Care (Place 'X' for any and all applicable criteria): Admission is indicated for chest pain and ANY ONE of the following(1)(2)(3)(4)(5 ): [ ]I. Angina with acute coronary syndrome (Also use Myocardial Infarction or Angina guideline) [ ]II. Hemodynamic instability [ ]III. Angina needing acute intervention as indicated by ALL of the following( 11)(12): [ ]a) Unstable angina is present as indicated by angina that is ANY ONE of the following: [ ]i) New onset [ ]ii) Nocturnal [ ]iii) Prolonged at rest [ ]iv) Progressive [ ]b) Angina warrants acute intervention as indicated by ANY ONE of the following: [ ]i) Recurrent angina (e.g, not responding as previously to treatment) [ ]ii) Angina at rest or with low-level activities despite initial medical therapy [ ]iii) New or presumably new ST-segment depression on ECG [ ]iv) Signs or symptoms of heart failure (eg, dyspnea, pulmonary edema) [ ]v) New or worsening mitral regurgitation [ ]vi) Hemodynamic instability [ ]vii) Dangerous arrhythmia (eg, sustained ventricular tachycardia) [ ]viii) History of percutaneous coronary intervention within 6 months [ ]ix) History of coronary artery bypass graft surgery [ ]x) DENNIS risk score of 2 or greater[A] [ ]xi) History of Diabetes(14) [ ]xii) High-risk cardiac ischemia findings on noninvasive testing (e.g, echocardiogram, treadmill testing, nuclear scan) [ ]xiii) Chronic renal insufficiency (ie, estimated GFR less than 60 mL/min/1.732m) [ ]xiv) Left ventricular ejection fraction less than 40% [X]IV. Evidence of OR (eg, cardiac biomarkers positive, ST-segment elevation on ECG) also use Myocardial Infarction Criteria Form. [ ]V. Pulmonary edema [ ]. Respiratory distress [ ]VII. Chest pain indicative of serious diagnosis other than coronary artery disease (eg, aortic dissection) [ ]VIII. Contraindications and/or Inappropriate clinical situations for Observational Care in patients with Chest Pain, when ANY ONE of the following is required: [ ]a) Patient with risk factor for pulmonary embolism, acute coronary syndrome and myocardial infarction (18) [ ]b) Patient with Pulmonary embolism require an average LOS of 4.3 days, therefore emergency department observation management is inappropriate 18,23 [ ]c) Painful condition/s in the elderly, have the highest rate of recidivism after emergency department observation management (10.8%) 20,21,22 [ ]d) Elevated cardiac biomarker requires intensive and exhaustive care (19) [ ]IX. General contraindications and/or Inappropriate clinical situations for Observational Care in patients with Chest Pain, when ANY ONE of the following is required: [ ]a) Prediction of prolongation of LOS based on ANY ONE of the following may be considered as a contraindication for observational care 2, 3, 4, 5, 6, 7, 8, 9, 10, 11 [ ]i) Age > 65 yrs. [ ]ii) Patient arriving by ambulance [ ]iii) Patient with high acuity [ ]iv) Patient requiring vital sign monitoring [ ]v) Patient on IV medication [ ]b) Systolic blood pressures 180mmHg 3,12 [ ]c) Patient with altered mental status including delirium and other alteration of consciousness, (3) [ ]d) Patient whose discharge disposition will be to a snf home or rehabilitation home should not be managed in Emergency Department Observation Unit. CMS rule requires 3 days hospital stay before such placement. 3,13 [ ]e) Patient with failure to thrive due to broad array of etiologies 3,16,17 [ ]f) Inability to ambulate 3,14 Extended stay beyond goal length of stay may be needed for (1)(28): [ ]a) Specific condition diagnosed after evaluation (eg, pulmonary embolism, aortic dissection) [ ]b) Unstable angina [ ]c) Continued suspicion of acute coronary syndrome with inability to complete needed cardiac evaluation (eg, patient clinically unable to undergo stress testing) [ ]d) Myocardial infarction (Contents from ANGINA and CHEST PAIN clinical indications for admission to inpatient care have been integrated in this form) The original [employer] content created by [employer] has been revised. The portions of the content which have been revised are identified through the use of italic text or in bold, and [facility] [employer] has neither reviewed nor approved the modified material. All other unmodified content is copyright [employer]. Please see references footnoted in the original [facility] edition 2016 NING MG Nov 17, 2016 05:03
[2016-11-17 06:04] LABS: BASO # 0.1 x10^3/uL (0.0-0.2); BASO % 1 % (0-3); EOS % 2 % (0-3); HEMOGLOBIN 11.4 g/dL (13.0-17.5); LYMPH # 2.3 x10^3/uL (1.0-4.8); LYMPH % 23 % (24-48); MEAN CORPUSCULAR HEMOGLOBIN 31 pg (25-35); MEAN CORPUSCULAR HGB CONC 32 g/dL (31-37); MEAN CORPUSCULAR VOLUME 99 fL (79-100); MONO % 10 % (0-9); NEUT % 65 % (31-73); PLATELET COUNT 153 x10^3/uL (140-400); RED BLOOD COUNT 3.64 x10^6/uL (4.30-5.70); RED CELL DISTRIBUTION WIDTH 16.6 % (11.5-14.5)
[2016-11-17 06:33] LABS: CALCIUM 8.4 mg/dL (8.5-10.1); CREATININE 4.8 mg/dL (0.7-1.3); GFR 12.2
[2016-11-17] MEDS: IPRATRPIUM/ALBUTEROL 0.5/2.5MG 3 ML NEBU. NEB SCH ×3 (06:42→15:26)
[2016-11-17 07:55] VITALS: BP 118/68
[2016-11-17] MEDS ORDERED: NITROGLYCERIN SUBLINGUAL 0.4 MG BOTTLE OF 25. SL PRN (08:30)
--- NOTE | 2016-11-17 08:57 | PDOC ---
Provider Note Provider Note [id number] SANDEEP YANG MD Nov 17, 2016 08:57
[2016-11-17] MEDS ORDERED: POLYETHYLENE GLYCOL 3350 17 GM PACKET. PO PRN (09:00)
[2016-11-17] MEDS ORDERED: ALLOPURINOL 300 MG TABLET. PO SCH (09:00)
[2016-11-17] MEDS: CALCIUM ACETATE 667 MG CAPSULE PO SCH ×3 (10:15→17:12)
[2016-11-17] MEDS: ASPIRIN CHEWABLE 81 MG TABLET. PO SCH (10:15)
[2016-11-17] MEDS: ALLOPURINOL 100 MG TABLET. PO SCH (10:15)
[2016-11-17] MEDS: ISOSORBIDE MONONITRATE ER 30 MG TAB.ER.24H PO SCH (10:16)
[2016-11-17] MEDS: DIGOXIN 125 MCG TABLET. PO SCH (10:16)
[2016-11-17] MEDS: CLOPIDOGREL BISULFATE 75 MG TABLET PO SCH (10:17)
[2016-11-17] MEDS: GABAPENTIN 100 MG CAPSULE. PO SCH ×2 (10:20→20:45)
[2016-11-17] MEDS: OXYCODONE/APAP 7.5/325 TABLET. PO PRN ×2 (10:20→20:46)
[2016-11-17] MEDS: RANOLAZINE 500 MG TAB.ER.12H PO SCH (10:21)
--- NOTE | 2016-11-17 10:51 | HP ---
ADMIT DATE: 11/17/2016 CHIEF COMPLAINT: Chest pain. HISTORY OF PRESENT ILLNESS: A 65-year-old white male with end-stage renal disease on dialysis as well as diabetes, while was sitting at home and developed sharp pressure-like left-sided chest pain then after probably 10 minutes radiated to left neck and jaw, aspirin and nitroglycerin gave him partial relief and came to the ER where he was admitted with normal EKG. Troponins have been slightly elevated up to 0.08 and he has had further episodes of mild chest pain throughout the night requiring morphine. He was told by Dr. Matthews in the past that he "have no more stents" to the extent of his coronary artery disease. PAST MEDICAL HISTORY: On dialysis, closed wound care for chronic nonhealing wound of left foot. MEDICATIONS: Multiple meds, listed per the chart, low doses of insulin because of weight loss. SOCIAL HISTORY: Nonsmoker, nondrinker, retired, physically not active. FAMILY HISTORY: Unremarkable. REVIEW OF SYSTEMS: Negative. OBJECTIVE: ENT: All within normal limits. NECK: No bruits, nodes or masses. LUNGS: Clear. CARDIOVASCULAR: Regular rate. No irregular beat or murmur. ABDOMEN: Soft, benign and nontender. EXTREMITIES: Feet are covered, pedal pulses diminished. No edema. No joint or skin lesions. NEUROLOGIC: Physiologic and nonfocal. ASSESSMENT: 1. Chest pain, sounds like ischemic in origin. He has long history of coronary artery disease, stents and coronary artery bypass. 2. End-stage renal disease, on dialysis. 3. Peripheral arterial disease with poor healing left foot wound. PLAN: We will add Imdur for now. Cardiovascular consultation pending, rest of meds remain the same. SANDEEP YANG MD DR: NIKOLAI/macho JOB#: [id number] / [id number]
[2016-11-17 11:00] VITALS: BP 124/73
--- NOTE | 2016-11-17 11:02 | PDOC2 ---
CONSULT Date of Consult Date of Consult DATE: 11/17/16 TIME: 10:59 Reason for Consult Reason for Consult: ESRD Referring Physician Referring Physician: CELIA Identification/Chief Complaint Chief Complaint CHEST PAIN Source Source: Chart review, Patient History of Present Illness Reason for Visit: THIS IS A 65 YR OLD WITH A SIGNIFICANT CAD HX AND HE PRESENTS WITH CHEST PAIN. HE ALSO HAS CM. HE HAS ESRD AND IS ON OP HD ON MWF. LABS ARE C/W ESRD Past Medical History Cardiovascular: AFIB, CAD, CHF, HTN, Valve insufficiency, Pulmonary hypertension Heme/Onc: Cancer, Iron deficiency Anemia Musculoskeletal: Muscle atrophy, Weakness Renal/: Chronic renal failure Endocrine: Hyperparathyroidism Past Surgical History Past Surgical History: Cholecystectomy, Cataract Removal, Colon Resection, Other Family History Family History: Cancer Social History ALCOHOL: none Drugs: None Lives: with Family Current Problem List Problem List Problems Medical Problems: (1) Anemia Status: Acute (2) Chest pain Status: Acute (3) Elevated troponin Status: Acute (4) End stage renal disease Status: Acute Current Medications Current Medications Current Medications Aspirin (Ant Aspirin) 325 mg 1X ONCE PO ; Start 11/16/16 at 14:15; Stop 11/16 at 14:28; Status DC Morphine Sulfate 4 mg PRN Q15MIN PRN IV/SQ PAIN GREATER THAN 3/10 Last administered on 11/16/16t 16:26; Start 11/16/16 at 14:30; Stop 11/17/16 at 14:29 Ondansetron HCl (Zofran) 4 mg PRN Q8HRS PRN IV NAUSEA/VOMITING; Start 11/16/16 at 16:15; Stop 11/17/16 at 16:14 Morphine Sulfate 2 mg PRN Q2HR PRN IV PAIN Last administered on 11/17/16 03:51 ; Start 11/16/16 at 16:15; Stop 11/17/16 at 16:14 Acetaminophen (Tylenol) 650 mg PRN Q4HRS PRN PO FEVER; Start 11/16/16 at 16:15 ; Stop 11/17/16 at 16:14 Nitroglycerin (Nitrostat) 0.4 mg PRN Q5MIN PRN SL CHEST PAIN; Start 11/16/16 at 16:15; Stop 11/17/16 at 08:58; Status DC Albuterol/ Ipratropium (Duoneb) 3 ml RTQID NEB Last administered on 11/17/16 06:42; Start 11/16/16 at 20:00; Stop 11/17/16 at 19:59 Allopurinol (Zyloprim) 300 mg DAILY PO ; Start 11/17/16 at 09:00; Stop 11/17/16 at 09:00; Status DC Aspirin (Children'S Aspirin) 81 mg DAILY PO Last administered on 11/17/16 10: 15; Start 11/17/16 at 09:00 Calcium Acetate (Phoslo) 667 mg TIDWMEALS PO Last administered on 11/17/16 10: 15; Start 11/17/16 at 09:00 Clopidogrel Bisulfate (Plavix) 75 mg DAILY PO Last administered on 11/17/16 10 :17; Start 11/17/16 at 09:00 Digoxin (Lanoxin) 125 mcg DAILY PO Last administered on 11/17/16 10:16; Start 11/17/16 at 09:00 Famotidine (Pepcid) 20 mg QHS PO ; Start 11/17/16 at 21:00 Vitamin B Complex/ Vitamin C (Mago-Mouna) 1 tab DAILY PO ; Start 11/17/16 at 09: 00 Gabapentin (Neurontin) 100 mg BID PO Last administered on 11/17/16 10:20; Start 11/17/16 at 09:00 Nitroglycerin (Nitrostat) 0.4 mg PRN Q1HR PRN SL CHEST PAIN; Start 11/17/16 at 08:30 Oxycodone/ Acetaminophen (Percocet 7.5/ 325) 1 tab PRN TID PRN PO MODERATE - SEVERE PAIN Last administered on 11/17/16 10:20; Start 11/17/16 at 08:30 Polyethylene Glycol (miraLAX PACKET) 17 gm PRN DAILY PRN PO CONSTIPATION; Start 11/17/16 at 09:00 Ranolazine (Ranexa) 500 mg DAILY PO Last administered on 11/17/16 10:21; Start 11/17/16 at 09:00 Tamsulosin HCl (Flomax) 0.4 mg HS PO ; Start 11/17/16 at 21:00 Insulin Aspart Prota 70%/Aspart 30% (Novolog Mix 70-30) 20 units BIDWMEALS SQ ; Start 11/17/16 at 09:00 Allopurinol (Zyloprim) 100 mg DAILY PO Last administered on 11/17/16 10:15; Start 11/17/16 at 09:00 Isosorbide Mononitrate (Imdur) 30 mg DAILY PO Last administered on 11/17/16 10 :16; Start 11/17/16 at 09:00 Active Scripts Active Reported Humulin 70-30 Vial (Hum Insulin Nph/Reg Insulin Hm) 100 Unit/1 Ml Vial 20 Unit SQ BIDWMEALS Gabapentin 100 Mg Capsule 100 Mg PO BID Ranexa (Ranolazine) 500 Mg Tab.er.12h 1 Tab PO DAILY Phoslo (Calcium Acetate) 667 Mg Capsule 667 Mg PO TIDWMEALS Polyethylene Glycol 3350 255 Gm Powder 17 Gm PO DAILY PRN Anoro Ellipta 62.5-25 Mcg Inh (Umeclidinium Brm/Vilanterol Tr) 1 Each Disk.w.dev 1 Each IH DAILY Clopidogrel (Clopidogrel Bisulfate) 75 Mg Tablet 1 Tab PO DAILY Percocet 7.5-325 Mg Tablet (Oxycodone/Acetaminophen) 1 Each Tablet 1 Tab PO TID PRN Dialyvite 800 Tablet (Folic Acid/Vitamin B Comp W-C) 0.8 Mg Tablet 0.8 Mg PO DAILY NITROGLYCERIN SubLingual (Nitroglycerin) 0.4 Mg Tab.subl 0.4 Mg SL PRN Allopurinol 300 Mg Tablet 300 Mg PO DAILY Pepcid (Famotidine) 20 Mg Tablet 20 Mg PO QHS Lanoxin (Digoxin) 125 Mcg Tablet 125 Mcg PO DAILY Flomax (Tamsulosin Hcl) 0.4 Mg Cap.er.24h 0.4 Mg PO HS Aspirin 81 Mg Tab.chew 81 Mg PO DAILY Allergies Allergies: Coded Allergies: adhesive (Verified Allergy, Severe, STERI STRIPS- PEELING SKIN, 08/25/16) STERI STRIPS ROS General: YES: Appetite, Fatigue, Malaise PSYCHOLOGICAL ROS: YES: Anxiety, Depression Eyes: Yes Decreased vision HEENT: YES: Heacaches Respiratory: YES: Cough Cardiovascular: yes Chest Pain, yes Edema, yes Orthopnea Gastrointestinal: Yes Constipation Genitourinary: YES Other (ANURIA) Musculoskeletal: Yes Muscular Weakness Neurological: Yes Weakness Skin: Yes Dry Skin Physical Exam General: Alert, Oriented X3, Cooperative, No acute distress Lungs: Clear to auscultation Heart: Regular rate Abdomen: Normal bowel sounds Extremities: No clubbing Neuro: Normal speech Psych/Mental Status: Mood NL MUSCULOSKELETAL: No deformity, No swelling Vitals VITALS Vital Signs Date Time Temp Pulse Resp B/P Pulse Ox O2 Delivery O2 Flow Rate FiO2 11/17/16 10:21 68 118/68 11/17/16 10:20 Room Air 11/17/16 07:55 97.6 12 100 2.0 97.6 Labs Labs Laboratory Tests Test 11/16/16 14:30 11/16/16 17:56 11/16/16 21:05 11/16/16 22:22 White Blood Count 10.4x10^3/uL (4.0-11.0) Red Blood Count 3.57x10^6/uL (4.30-5.70) Hemoglobin 11.3g/dL (13.0-17.5) Hematocrit 34.9% (39.0-53.0) Mean Corpuscular Volume 98fL (79-100) Mean Corpuscular Hemoglobin 32pg (25-35) Mean Corpuscular Hemoglobin Concent 32g/dL (31-37) Red Cell Distribution Width 16.4% (11.5-14.5) Platelet Count 160x10^3/uL (140-400) Neutrophils (%) (Auto) 82% (31-73) Lymphocytes (%) (Auto) 10% (24-48) Monocytes (%) (Auto) 7% (0-9) Eosinophils (%) (Auto) 1% (0-3) Basophils (%) (Auto) 1% (0-3) Neutrophils # (Auto) 8.5x10^3uL (1.8-7.7) Lymphocytes # (Auto) 1.0x10^3/uL (1.0-4.8) Monocytes # (Auto) 0.7x10^3/uL (0.0-1.1) Eosinophils # (Auto) 0.1x10^3/uL (0.0-0.7) Basophils # (Auto) 0.1x10^3/uL (0.0-0.2) Prothrombin Time 14.6SEC (11.7-14.0) Prothromb Time International Ratio 1.2 (0.8-1.1) Activated Partial Thromboplast Time 29SEC (24-38) Sodium Level 140mmol/L (136-145) Potassium Level 4.0mmol/L (3.5-5.1) Chloride Level 99mmol/L (98-107) Carbon Dioxide Level 31mmol/L (21-32) Anion Gap 10 (6-14) Blood Urea Nitrogen 36mg/dL (8-26) Creatinine 4.0mg/dL (0.7-1.3) Estimated GFR (Cockcroft-Gault) 15.1 BUN/Creatinine Ratio 9 (6-20) Glucose Level 153mg/dL (70-99) Calcium Level 8.7mg/dL (8.5-10.1) Total Bilirubin 0.7mg/dL (0.2-1.0) Aspartate Amino Transf (AST/SGOT) 18U/L (15-37) Alanine Aminotransferase (ALT/SGPT) 12U/L (16-63) Alkaline Phosphatase 166U/L (46-116) Troponin I Quantitative 0.075ng/mL (0.000-0.055) 0.078ng/mL (0.000-0.055) US-Qci-V-Type Natriuretic Peptide > 02958db/mL (0-124) Total Protein 6.8g/dL (6.4-8.2) Albumin 2.9g/dL (3.4-5.0) Albumin/Globulin Ratio 0.7 (1.0-1.7) Glucose (Fingerstick) 270mg/dL (70-99) 227mg/dL (70-99) Test 11/17/16 05:30 11/17/16 08:43 White Blood Count 10.0x10^3/uL (4.0-11.0) Red Blood Count 3.64x10^6/uL (4.30-5.70) Hemoglobin 11.4g/dL (13.0-17.5) Hematocrit 36.0% (39.0-53.0) Mean Corpuscular Volume 99fL (79-100) Mean Corpuscular Hemoglobin 31pg (25-35) Mean Corpuscular Hemoglobin Concent 32g/dL (31-37) Red Cell Distribution Width 16.6% (11.5-14.5) Platelet Count 153x10^3/uL (140-400) Neutrophils (%) (Auto) 65% (31-73) Lymphocytes (%) (Auto) 23% (24-48) Monocytes (%) (Auto) 10% (0-9) Eosinophils (%) (Auto) 2% (0-3) Basophils (%) (Auto) 1% (0-3) Neutrophils # (Auto) 6.5x10^3uL (1.8-7.7) Lymphocytes # (Auto) 2.3x10^3/uL (1.0-4.8) Monocytes # (Auto) 1.0x10^3/uL (0.0-1.1) Eosinophils # (Auto) 0.2x10^3/uL (0.0-0.7) Basophils # (Auto) 0.1x10^3/uL (0.0-0.2) Sodium Level 141mmol/L (136-145) Potassium Level 5.0mmol/L (3.5-5.1) Chloride Level 100mmol/L (98-107) Carbon Dioxide Level 28mmol/L (21-32) Anion Gap 13 (6-14) Blood Urea Nitrogen 45mg/dL (8-26) Creatinine 4.8mg/dL (0.7-1.3) Estimated GFR (Cockcroft-Gault) 12.2 Glucose Level 170mg/dL (70-99) Calcium Level 8.4mg/dL (8.5-10.1) Troponin I Quantitative 0.077ng/mL (0.000-0.055) Glucose (Fingerstick) 152mg/dL (70-99) Laboratory Tests Test 11/16/16 14:30 11/16/16 17:56 11/16/16 21:05 11/16/16 22:22 White Blood Count 10.4x10^3/uL (4.0-11.0) Red Blood Count 3.57x10^6/uL (4.30-5.70) Hemoglobin 11.3g/dL (13.0-17.5) Hematocrit 34.9% (39.0-53.0) Mean Corpuscular Volume 98fL (79-100) Mean Corpuscular Hemoglobin 32pg (25-35) Mean Corpuscular Hemoglobin Concent 32g/dL (31-37) Red Cell Distribution Width 16.4% (11.5-14.5) Platelet Count 160x10^3/uL (140-400) Neutrophils (%) (Auto) 82% (31-73) Lymphocytes (%) (Auto) 10% (24-48) Monocytes (%) (Auto) 7% (0-9) Eosinophils (%) (Auto) 1% (0-3) Basophils (%) (Auto) 1% (0-3) Neutrophils # (Auto) 8.5x10^3uL (1.8-7.7) Lymphocytes # (Auto) 1.0x10^3/uL (1.0-4.8) Monocytes # (Auto) 0.7x10^3/uL (0.0-1.1) Eosinophils # (Auto) 0.1x10^3/uL (0.0-0.7) Basophils # (Auto) 0.1x10^3/uL (0.0-0.2) Prothrombin Time 14.6SEC (11.7-14.0) Prothromb Time International Ratio 1.2 (0.8-1.1) Activated Partial Thromboplast Time 29SEC (24-38) Sodium Level 140mmol/L (136-145) Potassium Level 4.0mmol/L (3.5-5.1) Chloride Level 99mmol/L (98-107) Carbon Dioxide Level 31mmol/L (21-32) Anion Gap 10 (6-14) Blood Urea Nitrogen 36mg/dL (8-26) Creatinine 4.0mg/dL (0.7-1.3) Estimated GFR (Cockcroft-Gault) 15.1 BUN/Creatinine Ratio 9 (6-20) Glucose Level 153mg/dL (70-99) Calcium Level 8.7mg/dL (8.5-10.1) Total Bilirubin 0.7mg/dL (0.2-1.0) Aspartate Amino Transf (AST/SGOT) 18U/L (15-37) Alanine Aminotransferase (ALT/SGPT) 12U/L (16-63) Alkaline Phosphatase 166U/L (46-116) Troponin I Quantitative 0.075ng/mL (0.000-0.055) 0.078ng/mL (0.000-0.055) SV-Eaz-R-Type Natriuretic Peptide > 66615lm/mL (0-124) Total Protein 6.8g/dL (6.4-8.2) Albumin 2.9g/dL (3.4-5.0) Albumin/Globulin Ratio 0.7 (1.0-1.7) Glucose (Fingerstick) 270mg/dL (70-99) 227mg/dL (70-99) Test 11/17/16 05:30 11/17/16 08:43 White Blood Count 10.0x10^3/uL (4.0-11.0) Red Blood Count 3.64x10^6/uL (4.30-5.70) Hemoglobin 11.4g/dL (13.0-17.5) Hematocrit 36.0% (39.0-53.0) Mean Corpuscular Volume 99fL (79-100) Mean Corpuscular Hemoglobin 31pg (25-35) Mean Corpuscular Hemoglobin Concent 32g/dL (31-37) Red Cell Distribution Width 16.6% (11.5-14.5) Platelet Count 153x10^3/uL (140-400) Neutrophils (%) (Auto) 65% (31-73) Lymphocytes (%) (Auto) 23% (24-48) Monocytes (%) (Auto) 10% (0-9) Eosinophils (%) (Auto) 2% (0-3) Basophils (%) (Auto) 1% (0-3) Neutrophils # (Auto) 6.5x10^3uL (1.8-7.7) Lymphocytes # (Auto) 2.3x10^3/uL (1.0-4.8) Monocytes # (Auto) 1.0x10^3/uL (0.0-1.1) Eosinophils # (Auto) 0.2x10^3/uL (0.0-0.7) Basophils # (Auto) 0.1x10^3/uL (0.0-0.2) Sodium Level 141mmol/L (136-145) Potassium Level 5.0mmol/L (3.5-5.1) Chloride Level 100mmol/L (98-107) Carbon Dioxide Level 28mmol/L (21-32) Anion Gap 13 (6-14) Blood Urea Nitrogen 45mg/dL (8-26) Creatinine 4.8mg/dL (0.7-1.3) Estimated GFR (Cockcroft-Gault) 12.2 Glucose Level 170mg/dL (70-99) Calcium Level 8.4mg/dL (8.5-10.1) Troponin I Quantitative 0.077ng/mL (0.000-0.055) Glucose (Fingerstick) 152mg/dL (70-99) Assessment/Plan Assessment/Plan IMP CM ANEMIA ESRD CHEST PAIN PAD WITH LEFT HEEL WOUND PLAN HD MWF CARDIOLOGY EVAL AND TX NAVIN FOWLER MD Nov 17, 2016 11:02
[2016-11-17] MEDS: INSULN ASP PRT/INSULIN ASPART 300 UNITS/3 ML INSULN.PEN. SQ SCH ×2 (11:41→17:24)
--- NOTE | 2016-11-17 12:02 | PDOC2 ---
CONSULT Date of Consult Date of Consult DATE: 11/17/16 TIME: 11:59 Reason for Consult Reason for Consult: Chest Pain Identification/Chief Complaint Chief Complaint Chest Pain Source Source: Chart review, Patient History of Present Illness Reason for Visit: 65 year old male known to my practice presented to ED after experiencing L sided pressure like chest pain radiating to L ear, jaw, and arm. EKG was normal in the ED with elevated troponins (0.078). He was admitted. Patient has past medical history significant for CABG in 1995, pacemaker with defibrillator, and 5 coronary stents. Today his chest pain is much improved at 1/10 after pain medications. He was told in the past that he would not be a candidate for anymore coronary stents. Past Medical History Cardiovascular: AFIB, CAD, CHF, HTN, Valve insufficiency, Pulmonary hypertension Heme/Onc: Cancer, Iron deficiency Anemia Musculoskeletal: Muscle atrophy, Weakness Renal/: Chronic renal failure Endocrine: Hyperparathyroidism Past Surgical History Past Surgical History: Cholecystectomy, Cataract Removal, Colon Resection, Other Family History Family History: Cancer Social History ALCOHOL: none Drugs: None Lives: with Family Current Problem List Problem List Problems Medical Problems: (1) Anemia Status: Acute (2) Chest pain Status: Acute (3) Elevated troponin Status: Acute (4) End stage renal disease Status: Acute Current Medications Current Medications Current Medications Aspirin (Ant Aspirin) 325 mg 1X ONCE PO ; Start 11/16/16 at 14:15; Stop 11/16 at 14:28; Status DC Morphine Sulfate 4 mg PRN Q15MIN PRN IV/SQ PAIN GREATER THAN 3/10 Last administered on 11/16/16t 16:26; Start 11/16/16 at 14:30; Stop 11/17/16 at 14:29 Ondansetron HCl (Zofran) 4 mg PRN Q8HRS PRN IV NAUSEA/VOMITING; Start 11/16/16 at 16:15; Stop 11/17/16 at 16:14 Morphine Sulfate 2 mg PRN Q2HR PRN IV PAIN Last administered on 11/17/16 03:51 ; Start 11/16/16 at 16:15; Stop 11/17/16 at 16:14 Acetaminophen (Tylenol) 650 mg PRN Q4HRS PRN PO FEVER; Start 11/16/16 at 16:15 ; Stop 11/17/16 at 16:14 Nitroglycerin (Nitrostat) 0.4 mg PRN Q5MIN PRN SL CHEST PAIN; Start 11/16/16 at 16:15; Stop 11/17/16 at 08:58; Status DC Albuterol/ Ipratropium (Duoneb) 3 ml RTQID NEB Last administered on 11/17/16 11:44; Start 11/16/16 at 20:00; Stop 11/17/16 at 19:59 Allopurinol (Zyloprim) 300 mg DAILY PO ; Start 11/17/16 at 09:00; Stop 11/17/16 at 09:00; Status DC Aspirin (Children'S Aspirin) 81 mg DAILY PO Last administered on 11/17/16 10: 15; Start 11/17/16 at 09:00 Calcium Acetate (Phoslo) 667 mg TIDWMEALS PO Last administered on 11/17/16 10: 15; Start 11/17/16 at 09:00 Clopidogrel Bisulfate (Plavix) 75 mg DAILY PO Last administered on 11/17/16 10 :17; Start 11/17/16 at 09:00 Digoxin (Lanoxin) 125 mcg DAILY PO Last administered on 11/17/16 10:16; Start 11/17/16 at 09:00 Famotidine (Pepcid) 20 mg QHS PO ; Start 11/17/16 at 21:00 Vitamin B Complex/ Vitamin C (Mago-Mouna) 1 tab DAILY PO ; Start 11/17/16 at 09: 00 Gabapentin (Neurontin) 100 mg BID PO Last administered on 11/17/16 10:20; Start 11/17/16 at 09:00 Nitroglycerin (Nitrostat) 0.4 mg PRN Q1HR PRN SL CHEST PAIN; Start 11/17/16 at 08:30 Oxycodone/ Acetaminophen (Percocet 7.5/ 325) 1 tab PRN TID PRN PO MODERATE - SEVERE PAIN Last administered on 11/17/16 10:20; Start 11/17/16 at 08:30 Polyethylene Glycol (miraLAX PACKET) 17 gm PRN DAILY PRN PO CONSTIPATION; Start 11/17/16 at 09:00 Ranolazine (Ranexa) 500 mg DAILY PO Last administered on 11/17/16 10:21; Start 11/17/16 at 09:00 Tamsulosin HCl (Flomax) 0.4 mg HS PO ; Start 11/17/16 at 21:00 Insulin Aspart Prota 70%/Aspart 30% (Novolog Mix 70-30) 20 units BIDWMEALS SQ Last administered on 11/17/16 11:41; Start 11/17/16 at 09:00 Allopurinol (Zyloprim) 100 mg DAILY PO Last administered on 11/17/16 10:15; Start 11/17/16 at 09:00 Isosorbide Mononitrate (Imdur) 30 mg DAILY PO Last administered on 11/17/16 10 :16; Start 11/17/16 at 09:00 Active Scripts Active Reported Humulin 70-30 Vial (Hum Insulin Nph/Reg Insulin Hm) 100 Unit/1 Ml Vial 20 Unit SQ BIDWMEALS Gabapentin 100 Mg Capsule 100 Mg PO BID Ranexa (Ranolazine) 500 Mg Tab.er.12h 1 Tab PO DAILY Phoslo (Calcium Acetate) 667 Mg Capsule 667 Mg PO TIDWMEALS Polyethylene Glycol 3350 255 Gm Powder 17 Gm PO DAILY PRN Anoro Ellipta 62.5-25 Mcg Inh (Umeclidinium Brm/Vilanterol Tr) 1 Each Disk.w.dev 1 Each IH DAILY Clopidogrel (Clopidogrel Bisulfate) 75 Mg Tablet 1 Tab PO DAILY Percocet 7.5-325 Mg Tablet (Oxycodone/Acetaminophen) 1 Each Tablet 1 Tab PO TID PRN Dialyvite 800 Tablet (Folic Acid/Vitamin B Comp W-C) 0.8 Mg Tablet 0.8 Mg PO DAILY NITROGLYCERIN SubLingual (Nitroglycerin) 0.4 Mg Tab.subl 0.4 Mg SL PRN Allopurinol 300 Mg Tablet 300 Mg PO DAILY Pepcid (Famotidine) 20 Mg Tablet 20 Mg PO QHS Lanoxin (Digoxin) 125 Mcg Tablet 125 Mcg PO DAILY Flomax (Tamsulosin Hcl) 0.4 Mg Cap.er.24h 0.4 Mg PO HS Aspirin 81 Mg Tab.chew 81 Mg PO DAILY Allergies Allergies: Coded Allergies: adhesive (Verified Allergy, Severe, STERI STRIPS- PEELING SKIN, 08/25/16) STERI STRIPS Physical Exam General: Alert, Oriented X3, Cooperative, No acute distress Lungs: Other (expiratory wheezes bilaterally) Heart: Regular rate, Normal S1, Normal S2 Abdomen: Soft Extremities: No clubbing, No edema Skin: Other (L leg open sore) Neuro: Normal speech, Normal tone Vitals VITALS Vital Signs Date Time Temp Pulse Resp B/P Pulse Ox O2 Delivery O2 Flow Rate FiO2 11/17/16 10:21 68 118/68 11/17/16 10:20 Room Air 11/17/16 07:55 97.6 12 100 2.0 97.6 Labs Labs Laboratory Tests Test 11/16/16 14:30 11/16/16 17:56 11/16/16 21:05 11/16/16 22:22 White Blood Count 10.4x10^3/uL (4.0-11.0) Red Blood Count 3.57x10^6/uL (4.30-5.70) Hemoglobin 11.3g/dL (13.0-17.5) Hematocrit 34.9% (39.0-53.0) Mean Corpuscular Volume 98fL (79-100) Mean Corpuscular Hemoglobin 32pg (25-35) Mean Corpuscular Hemoglobin Concent 32g/dL (31-37) Red Cell Distribution Width 16.4% (11.5-14.5) Platelet Count 160x10^3/uL (140-400) Neutrophils (%) (Auto) 82% (31-73) Lymphocytes (%) (Auto) 10% (24-48) Monocytes (%) (Auto) 7% (0-9) Eosinophils (%) (Auto) 1% (0-3) Basophils (%) (Auto) 1% (0-3) Neutrophils # (Auto) 8.5x10^3uL (1.8-7.7) Lymphocytes # (Auto) 1.0x10^3/uL (1.0-4.8) Monocytes # (Auto) 0.7x10^3/uL (0.0-1.1) Eosinophils # (Auto) 0.1x10^3/uL (0.0-0.7) Basophils # (Auto) 0.1x10^3/uL (0.0-0.2) Prothrombin Time 14.6SEC (11.7-14.0) Prothromb Time International Ratio 1.2 (0.8-1.1) Activated Partial Thromboplast Time 29SEC (24-38) Sodium Level 140mmol/L (136-145) Potassium Level 4.0mmol/L (3.5-5.1) Chloride Level 99mmol/L (98-107) Carbon Dioxide Level 31mmol/L (21-32) Anion Gap 10 (6-14) Blood Urea Nitrogen 36mg/dL (8-26) Creatinine 4.0mg/dL (0.7-1.3) Estimated GFR (Cockcroft-Gault) 15.1 BUN/Creatinine Ratio 9 (6-20) Glucose Level 153mg/dL (70-99) Calcium Level 8.7mg/dL (8.5-10.1) Total Bilirubin 0.7mg/dL (0.2-1.0) Aspartate Amino Transf (AST/SGOT) 18U/L (15-37) Alanine Aminotransferase (ALT/SGPT) 12U/L (16-63) Alkaline Phosphatase 166U/L (46-116) Troponin I Quantitative 0.075ng/mL (0.000-0.055) 0.078ng/mL (0.000-0.055) ZY-Tbg-O-Type Natriuretic Peptide > 81850zw/mL (0-124) Total Protein 6.8g/dL (6.4-8.2) Albumin 2.9g/dL (3.4-5.0) Albumin/Globulin Ratio 0.7 (1.0-1.7) Glucose (Fingerstick) 270mg/dL (70-99) 227mg/dL (70-99) Test 11/17/16 05:30 11/17/16 08:43 White Blood Count 10.0x10^3/uL (4.0-11.0) Red Blood Count 3.64x10^6/uL (4.30-5.70) Hemoglobin 11.4g/dL (13.0-17.5) Hematocrit 36.0% (39.0-53.0) Mean Corpuscular Volume 99fL (79-100) Mean Corpuscular Hemoglobin 31pg (25-35) Mean Corpuscular Hemoglobin Concent 32g/dL (31-37) Red Cell Distribution Width 16.6% (11.5-14.5) Platelet Count 153x10^3/uL (140-400) Neutrophils (%) (Auto) 65% (31-73) Lymphocytes (%) (Auto) 23% (24-48) Monocytes (%) (Auto) 10% (0-9) Eosinophils (%) (Auto) 2% (0-3) Basophils (%) (Auto) 1% (0-3) Neutrophils # (Auto) 6.5x10^3uL (1.8-7.7) Lymphocytes # (Auto) 2.3x10^3/uL (1.0-4.8) Monocytes # (Auto) 1.0x10^3/uL (0.0-1.1) Eosinophils # (Auto) 0.2x10^3/uL (0.0-0.7) Basophils # (Auto) 0.1x10^3/uL (0.0-0.2) Sodium Level 141mmol/L (136-145) Potassium Level 5.0mmol/L (3.5-5.1) Chloride Level 100mmol/L (98-107) Carbon Dioxide Level 28mmol/L (21-32) Anion Gap 13 (6-14) Blood Urea Nitrogen 45mg/dL (8-26) Creatinine 4.8mg/dL (0.7-1.3) Estimated GFR (Cockcroft-Gault) 12.2 Glucose Level 170mg/dL (70-99) Calcium Level 8.4mg/dL (8.5-10.1) Troponin I Quantitative 0.077ng/mL (0.000-0.055) Glucose (Fingerstick) 152mg/dL (70-99) Laboratory Tests Test 11/16/16 14:30 11/16/16 17:56 11/16/16 21:05 11/16/16 22:22 White Blood Count 10.4x10^3/uL (4.0-11.0) Red Blood Count 3.57x10^6/uL (4.30-5.70) Hemoglobin 11.3g/dL (13.0-17.5) Hematocrit 34.9% (39.0-53.0) Mean Corpuscular Volume 98fL (79-100) Mean Corpuscular Hemoglobin 32pg (25-35) Mean Corpuscular Hemoglobin Concent 32g/dL (31-37) Red Cell Distribution Width 16.4% (11.5-14.5) Platelet Count 160x10^3/uL (140-400) Neutrophils (%) (Auto) 82% (31-73) Lymphocytes (%) (Auto) 10% (24-48) Monocytes (%) (Auto) 7% (0-9) Eosinophils (%) (Auto) 1% (0-3) Basophils (%) (Auto) 1% (0-3) Neutrophils # (Auto) 8.5x10^3uL (1.8-7.7) Lymphocytes # (Auto) 1.0x10^3/uL (1.0-4.8) Monocytes # (Auto) 0.7x10^3/uL (0.0-1.1) Eosinophils # (Auto) 0.1x10^3/uL (0.0-0.7) Basophils # (Auto) 0.1x10^3/uL (0.0-0.2) Prothrombin Time 14.6SEC (11.7-14.0) Prothromb Time International Ratio 1.2 (0.8-1.1) Activated Partial Thromboplast Time 29SEC (24-38) Sodium Level 140mmol/L (136-145) Potassium Level 4.0mmol/L (3.5-5.1) Chloride Level 99mmol/L (98-107) Carbon Dioxide Level 31mmol/L (21-32) Anion Gap 10 (6-14) Blood Urea Nitrogen 36mg/dL (8-26) Creatinine 4.0mg/dL (0.7-1.3) Estimated GFR (Cockcroft-Gault) 15.1 BUN/Creatinine Ratio 9 (6-20) Glucose Level 153mg/dL (70-99) Calcium Level 8.7mg/dL (8.5-10.1) Total Bilirubin 0.7mg/dL (0.2-1.0) Aspartate Amino Transf (AST/SGOT) 18U/L (15-37) Alanine Aminotransferase (ALT/SGPT) 12U/L (16-63) Alkaline Phosphatase 166U/L (46-116) Troponin I Quantitative 0.075ng/mL (0.000-0.055) 0.078ng/mL (0.000-0.055) QS-Lxb-Z-Type Natriuretic Peptide > 78174qs/mL (0-124) Total Protein 6.8g/dL (6.4-8.2) Albumin 2.9g/dL (3.4-5.0) Albumin/Globulin Ratio 0.7 (1.0-1.7) Glucose (Fingerstick) 270mg/dL (70-99) 227mg/dL (70-99) Test 11/17/16 05:30 11/17/16 08:43 White Blood Count 10.0x10^3/uL (4.0-11.0) Red Blood Count 3.64x10^6/uL (4.30-5.70) Hemoglobin 11.4g/dL (13.0-17.5) Hematocrit 36.0% (39.0-53.0) Mean Corpuscular Volume 99fL (79-100) Mean Corpuscular Hemoglobin 31pg (25-35) Mean Corpuscular Hemoglobin Concent 32g/dL (31-37) Red Cell Distribution Width 16.6% (11.5-14.5) Platelet Count 153x10^3/uL (140-400) Neutrophils (%) (Auto) 65% (31-73) Lymphocytes (%) (Auto) 23% (24-48) Monocytes (%) (Auto) 10% (0-9) Eosinophils (%) (Auto) 2% (0-3) Basophils (%) (Auto) 1% (0-3) Neutrophils # (Auto) 6.5x10^3uL (1.8-7.7) Lymphocytes # (Auto) 2.3x10^3/uL (1.0-4.8) Monocytes # (Auto) 1.0x10^3/uL (0.0-1.1) Eosinophils # (Auto) 0.2x10^3/uL (0.0-0.7) Basophils # (Auto) 0.1x10^3/uL (0.0-0.2) Sodium Level 141mmol/L (136-145) Potassium Level 5.0mmol/L (3.5-5.1) Chloride Level 100mmol/L (98-107) Carbon Dioxide Level 28mmol/L (21-32) Anion Gap 13 (6-14) Blood Urea Nitrogen 45mg/dL (8-26) Creatinine 4.8mg/dL (0.7-1.3) Estimated GFR (Cockcroft-Gault) 12.2 Glucose Level 170mg/dL (70-99) Calcium Level 8.4mg/dL (8.5-10.1) Troponin I Quantitative 0.077ng/mL (0.000-0.055) Glucose (Fingerstick) 152mg/dL (70-99) Assessment/Plan Assessment/Plan Assessment: -NSTEMI with elevated initial trops and normal EKG This pt has diffuse small vessel CAD and will have some angina. He is a dialysis pt with chronically elevated troponins. He had been doing well on Ranexa 500mg po bid until this episode. Plan: -Continue nitro and morphine as needed for CP -Aspirin 325mg -Serial troponins -Increase Ranexa to 1000mg PO BID -Pacemaker and defibrillator interrogation has been done in my office -Agree with primary team plan of care Thank you for the consultation! LEXI ALTAMIRANO MD Nov 17, 2016 12:02
[2016-11-17] MEDS: FOLIC/VIT B COMP W-C (RENAL) TABLET. PO SCH (15:06)
[2016-11-17 15:45] VITALS: BP 99/71
[2016-11-17 20:02] VITALS: BP 94/54
[2016-11-17] MEDS: FAMOTIDINE 20 MG TABLET. PO SCH (20:45)
[2016-11-17] MEDS: TAMSULOSIN 0.4 MG CAP.ER.24H. PO SCH (20:46)
[2016-11-17] MEDS: ALPRAZOLAM 0.5 MG TABLET. PO PRN (23:26)
[2016-11-17 23:35] VITALS: BP 95/58
[2016-11-18 03:00] VITALS: BP 125/55
[2016-11-18 05:45] LABS: HEMATOCRIT 33.1 % (39.0-53.0); HEMOGLOBIN 10.7 g/dL (13.0-17.5); RED BLOOD COUNT 3.34 x10^6/uL (4.30-5.70); RED CELL DISTRIBUTION WIDTH 16.4 % (11.5-14.5); WHITE BLOOD COUNT 10.8 x10^3/uL (4.0-11.0)
[2016-11-18 06:08] LABS: CALCIUM 8.4 mg/dL (8.5-10.1); CREATININE 6.2 mg/dL (0.7-1.3); GFR 9.1; POTASSIUM 4.6 mmol/L (3.5-5.1)
[2016-11-18] MEDS ORDERED: DEXTROSE 50% 25 GM / 50ML DISP.SYRIN. IV ONE (06:30)
[2016-11-18] MEDS ORDERED: DEXTROSE 50% 25 GM / 50ML DISP.SYRIN. IV PRN (06:30)
[2016-11-18 07:00] VITALS: BP 112/59
[2016-11-18] MEDS ORDERED: IV NORMAL SALINE 1000ML BAG 1,000 ML IV PRN ×2 (07:32)
[2016-11-18] MEDS ORDERED: DIALYSIS PATIENT. MC PRN (07:45)
[2016-11-18] MEDS ORDERED: LIDOCAINE 1% PF 2 ML VIAL. SQ ONE (07:45)
[2016-11-18] MEDS: INSULN ASP PRT/INSULIN ASPART 300 UNITS/3 ML INSULN.PEN. SQ SCH ×2 (08:00→16:50)
[2016-11-18] MEDS: CALCIUM ACETATE 667 MG CAPSULE PO SCH ×3 (08:00→16:47)
--- NOTE | 2016-11-18 08:07 | RAD ---
Left lower extremity arterial ultrasound, 11/17/2006: History: Nonhealing wound, poor pedal pulses Duplex evaluation of the major arteries in the left lower extremity was performed including grayscale, color-flow and spectral Doppler analysis. There are moderate scattered atherosclerotic plaques. The left common femoral artery demonstrates a triphasic Doppler waveform. The profundus femoris Doppler waveform is biphasic. There are biphasic and triphasic Doppler waveforms in the left superficial femoral and popliteal arteries. No significant focal velocity acceleration is seen in these vessels to suggest high-grade stenosis. Patent anterior tibial, posterior tibial and peroneal arteries are present in the left calf, however, they demonstrate dampened monophasic Doppler waveforms. A patent distal left posterior tibial artery could not be delineated. The left dorsalis pedis artery demonstrates a barely pulsatile weak monophasic Doppler waveform. IMPRESSION: 1. Moderate atherosclerotic plaquing. 2. No duplex evidence of high-grade femoral-popliteal arterial stenosis. 3. Considerable degradation of the Doppler waveforms in the lower leg and ankle with probable occlusion of the distal left posterior tibial artery.
--- NOTE | 2016-11-18 08:54 | PDOC ---
Provider Note Provider Note asleep in dialysis, vss, bp lower- labs ok but lower glucose so will lower insulin- dispostion per dr shields, imdur added if he can toleratr lower bp SANDEEP YANG MD Nov 18, 2016 08:54
[2016-11-18] MEDS: GABAPENTIN 100 MG CAPSULE. PO SCH ×2 (09:00→21:01)
[2016-11-18] MEDS: RANOLAZINE 500 MG TAB.ER.12H PO SCH ×2 (09:00→21:01)
--- NOTE | 2016-11-18 11:34 | PDOC ---
Renal-Progress Notes Subjective Notes Notes FEELS WELL History of Present Illness Hx of present illness STABLE Vitals Vitals Vital Signs Date Time Temp Pulse Resp B/P Pulse Ox O2 Delivery O2 Flow Rate FiO2 11/18/16 08:00 Room Air 11/18/16 07:00 97.5 77 14 112/59 98 97.5 11/17/16 13:51 2.0 Weight Weight [ ] I.O. Intake and Output Intake and Output 11/18/16 07:00 Intake Total 760 ml Output Total 0 ml Balance 760 ml Intake Oral 760 ml Output Urine Total 0 ml Labs Labs Laboratory Tests Test 11/17/16 12:35 11/17/16 17:18 11/17/16 20:39 11/18/16 04:40 Glucose (Fingerstick) 198mg/dL (70-99) 111mg/dL (70-99) 80mg/dL (70-99) White Blood Count 10.8x10^3/uL (4.0-11.0) Red Blood Count 3.34x10^6/uL (4.30-5.70) Hemoglobin 10.7g/dL (13.0-17.5) Hematocrit 33.1% (39.0-53.0) Mean Corpuscular Volume 99fL (79-100) Mean Corpuscular Hemoglobin 32pg (25-35) Mean Corpuscular Hemoglobin Concent 32g/dL (31-37) Red Cell Distribution Width 16.4% (11.5-14.5) Platelet Count 162x10^3/uL (140-400) Sodium Level 138mmol/L (136-145) Potassium Level 4.6mmol/L (3.5-5.1) Chloride Level 99mmol/L (98-107) Carbon Dioxide Level 27mmol/L (21-32) Anion Gap 12 (6-14) Blood Urea Nitrogen 63mg/dL (8-26) Creatinine 6.2mg/dL (0.7-1.3) Estimated GFR (Cockcroft-Gault) 9.1 Glucose Level 43mg/dL (70-99) Calcium Level 8.4mg/dL (8.5-10.1) Test 11/18/16 06:17 11/18/16 06:30 11/18/16 07:46 Glucose (Fingerstick) 50mg/dL (70-99) 160mg/dL (70-99) 85mg/dL (70-99) Review of Systems Constitutional: yes: alert, oriented, weakness Ears/Nose/Throat: Yes: no symptom reported Pulmonary: Yes no symptom reported Cardiovascular: Yes no symptom reported Gastrointestional: Yes: constipation Musculoskeletal: Yes: muscle stiffness Skin: Yes no symptom reported Physical Exam General Appearance: no apparent distress Respiratory: bilateral CTA Heart: S1S2, RRR Abdomen: soft, bowel sounds present Genitourinary: bladder flat Neurology: alert Musculoskeletal: Muscle atrophy, Weakness Assessment Assessment IMP NSTEMI CAD CM ANEMIA ESRD PLAN HD TODAY UF TO DW WILL FOLLOW NAVIN ACEVEDO MD Nov 18, 2016 11:34
--- NOTE | 2016-11-18 12:52 | PDOC ---
PROGRESS NOTES Subjective Subjective Patient denied any complaints. Patient was in dialysis this AM and looking well. Objective Objective Vital Signs Date Time Temp Pulse Resp B/P Pulse Ox O2 Delivery O2 Flow Rate FiO2 11/18/16 08:00 Room Air 11/18/16 07:00 97.5 77 14 112/59 98 97.5 11/17/16 13:51 2.0 Intake and Output 11/18/16 07:00 Intake Total 760 ml Output Total 0 ml Balance 760 ml Intake Oral 760 ml Output Urine Total 0 ml Physical Exam Abdomen: Normal bowel sounds, Soft Heart: Regular rate, Normal S1, Normal S2 Extremities: No clubbing, No edema General: Alert, Oriented X3, Cooperative HEENT: Atraumatic, EOMI Lungs: Other (expiratory wheezes b/l) Neuro: Normal speech, Normal tone Skin: Other (open sore on L leg) Assessment Assessment Problems Medical Problems: (1) Anemia Status: Acute (2) Chest pain Status: Acute (3) Elevated troponin Status: Acute (4) End stage renal disease Status: Acute Plan Plan of Care Plan -Continue nitro and morphine as needed for CP -Aspirin 325mg -Increase Ranexa to 1000mg PO BID -Pacemaker and defibrillator interrogation has been done in my office -Stable from cardiac standpoint. OK to discharge. -Agree with primary team plan of care Comment Review of Relevant I have reviewed the following items nicole (where applicable) has been applied. Labs Laboratory Tests Test 11/16/16 14:30 11/16/16 17:56 11/16/16 21:05 11/16/16 22:22 White Blood Count 10.4x10^3/uL (4.0-11.0) Red Blood Count 3.57x10^6/uL (4.30-5.70) Hemoglobin 11.3g/dL (13.0-17.5) Hematocrit 34.9% (39.0-53.0) Mean Corpuscular Volume 98fL (79-100) Mean Corpuscular Hemoglobin 32pg (25-35) Mean Corpuscular Hemoglobin Concent 32g/dL (31-37) Red Cell Distribution Width 16.4% (11.5-14.5) Platelet Count 160x10^3/uL (140-400) Neutrophils (%) (Auto) 82% (31-73) Lymphocytes (%) (Auto) 10% (24-48) Monocytes (%) (Auto) 7% (0-9) Eosinophils (%) (Auto) 1% (0-3) Basophils (%) (Auto) 1% (0-3) Neutrophils # (Auto) 8.5x10^3uL (1.8-7.7) Lymphocytes # (Auto) 1.0x10^3/uL (1.0-4.8) Monocytes # (Auto) 0.7x10^3/uL (0.0-1.1) Eosinophils # (Auto) 0.1x10^3/uL (0.0-0.7) Basophils # (Auto) 0.1x10^3/uL (0.0-0.2) Prothrombin Time 14.6SEC (11.7-14.0) Prothromb Time International Ratio 1.2 (0.8-1.1) Activated Partial Thromboplast Time 29SEC (24-38) Sodium Level 140mmol/L (136-145) Potassium Level 4.0mmol/L (3.5-5.1) Chloride Level 99mmol/L (98-107) Carbon Dioxide Level 31mmol/L (21-32) Anion Gap 10 (6-14) Blood Urea Nitrogen 36mg/dL (8-26) Creatinine 4.0mg/dL (0.7-1.3) Estimated GFR (Cockcroft-Gault) 15.1 BUN/Creatinine Ratio 9 (6-20) Glucose Level 153mg/dL (70-99) Calcium Level 8.7mg/dL (8.5-10.1) Total Bilirubin 0.7mg/dL (0.2-1.0) Aspartate Amino Transf (AST/SGOT) 18U/L (15-37) Alanine Aminotransferase (ALT/SGPT) 12U/L (16-63) Alkaline Phosphatase 166U/L (46-116) Troponin I Quantitative 0.075ng/mL (0.000-0.055) 0.078ng/mL (0.000-0.055) RR-Lch-Q-Type Natriuretic Peptide > 51761tk/mL (0-124) Total Protein 6.8g/dL (6.4-8.2) Albumin 2.9g/dL (3.4-5.0) Albumin/Globulin Ratio 0.7 (1.0-1.7) Glucose (Fingerstick) 270mg/dL (70-99) 227mg/dL (70-99) Test 11/17/16 05:30 11/17/16 08:43 11/17/16 12:35 11/17/16 17:18 White Blood Count 10.0x10^3/uL (4.0-11.0) Red Blood Count 3.64x10^6/uL (4.30-5.70) Hemoglobin 11.4g/dL (13.0-17.5) Hematocrit 36.0% (39.0-53.0) Mean Corpuscular Volume 99fL (79-100) Mean Corpuscular Hemoglobin 31pg (25-35) Mean Corpuscular Hemoglobin Concent 32g/dL (31-37) Red Cell Distribution Width 16.6% (11.5-14.5) Platelet Count 153x10^3/uL (140-400) Neutrophils (%) (Auto) 65% (31-73) Lymphocytes (%) (Auto) 23% (24-48) Monocytes (%) (Auto) 10% (0-9) Eosinophils (%) (Auto) 2% (0-3) Basophils (%) (Auto) 1% (0-3) Neutrophils # (Auto) 6.5x10^3uL (1.8-7.7) Lymphocytes # (Auto) 2.3x10^3/uL (1.0-4.8) Monocytes # (Auto) 1.0x10^3/uL (0.0-1.1) Eosinophils # (Auto) 0.2x10^3/uL (0.0-0.7) Basophils # (Auto) 0.1x10^3/uL (0.0-0.2) Sodium Level 141mmol/L (136-145) Potassium Level 5.0mmol/L (3.5-5.1) Chloride Level 100mmol/L (98-107) Carbon Dioxide Level 28mmol/L (21-32) Anion Gap 13 (6-14) Blood Urea Nitrogen 45mg/dL (8-26) Creatinine 4.8mg/dL (0.7-1.3) Estimated GFR (Cockcroft-Gault) 12.2 Glucose Level 170mg/dL (70-99) Calcium Level 8.4mg/dL (8.5-10.1) Troponin I Quantitative 0.077ng/mL (0.000-0.055) Glucose (Fingerstick) 152mg/dL (70-99) 198mg/dL (70-99) 111mg/dL (70-99) Test 11/17/16 20:39 11/18/16 04:40 11/18/16 06:17 11/18/16 06:30 Glucose (Fingerstick) 80mg/dL (70-99) 50mg/dL (70-99) 160mg/dL (70-99) White Blood Count 10.8x10^3/uL (4.0-11.0) Red Blood Count 3.34x10^6/uL (4.30-5.70) Hemoglobin 10.7g/dL (13.0-17.5) Hematocrit 33.1% (39.0-53.0) Mean Corpuscular Volume 99fL (79-100) Mean Corpuscular Hemoglobin 32pg (25-35) Mean Corpuscular Hemoglobin Concent 32g/dL (31-37) Red Cell Distribution Width 16.4% (11.5-14.5) Platelet Count 162x10^3/uL (140-400) Sodium Level 138mmol/L (136-145) Potassium Level 4.6mmol/L (3.5-5.1) Chloride Level 99mmol/L (98-107) Carbon Dioxide Level 27mmol/L (21-32) Anion Gap 12 (6-14) Blood Urea Nitrogen 63mg/dL (8-26) Creatinine 6.2mg/dL (0.7-1.3) Estimated GFR (Cockcroft-Gault) 9.1 Glucose Level 43mg/dL (70-99) Calcium Level 8.4mg/dL (8.5-10.1) Test 11/18/16 07:46 Glucose (Fingerstick) 85mg/dL (70-99) Laboratory Tests Test 11/17/16 17:18 11/17/16 20:39 11/18/16 04:40 11/18/16 06:17 Glucose (Fingerstick) 111mg/dL (70-99) 80mg/dL (70-99) 50mg/dL (70-99) White Blood Count 10.8x10^3/uL (4.0-11.0) Red Blood Count 3.34x10^6/uL (4.30-5.70) Hemoglobin 10.7g/dL (13.0-17.5) Hematocrit 33.1% (39.0-53.0) Mean Corpuscular Volume 99fL (79-100) Mean Corpuscular Hemoglobin 32pg (25-35) Mean Corpuscular Hemoglobin Concent 32g/dL (31-37) Red Cell Distribution Width 16.4% (11.5-14.5) Platelet Count 162x10^3/uL (140-400) Sodium Level 138mmol/L (136-145) Potassium Level 4.6mmol/L (3.5-5.1) Chloride Level 99mmol/L (98-107) Carbon Dioxide Level 27mmol/L (21-32) Anion Gap 12 (6-14) Blood Urea Nitrogen 63mg/dL (8-26) Creatinine 6.2mg/dL (0.7-1.3) Estimated GFR (Cockcroft-Gault) 9.1 Glucose Level 43mg/dL (70-99) Calcium Level 8.4mg/dL (8.5-10.1) Test 11/18/16 06:30 11/18/16 07:46 Glucose (Fingerstick) 160mg/dL (70-99) 85mg/dL (70-99) Medications Current Medications Aspirin (Ant Aspirin) 325 mg 1X ONCE PO ; Start 11/16/16 at 14:15; Stop 11/16 at 14:28; Status DC Morphine Sulfate 4 mg PRN Q15MIN PRN IV/SQ PAIN GREATER THAN 3/10 Last administered on 11/16/16t 16:26; Start 11/16/16 at 14:30; Stop 11/17/16 at 14:29 ; Status DC Ondansetron HCl (Zofran) 4 mg PRN Q8HRS PRN IV NAUSEA/VOMITING; Start 11/16/16 at 16:15; Stop 11/17/16 at 16:14; Status DC Morphine Sulfate 2 mg PRN Q2HR PRN IV PAIN Last administered on 11/17/16 03:51 ; Start 11/16/16 at 16:15; Stop 11/17/16 at 16:14; Status DC Acetaminophen (Tylenol) 650 mg PRN Q4HRS PRN PO FEVER; Start 11/16/16 at 16:15 ; Stop 11/17/16 at 16:14; Status DC Nitroglycerin (Nitrostat) 0.4 mg PRN Q5MIN PRN SL CHEST PAIN; Start 11/16/16 at 16:15; Stop 11/17/16 at 08:58; Status DC Albuterol/ Ipratropium (Duoneb) 3 ml RTQID NEB Last administered on 11/17/16 15:26; Start 11/16/16 at 20:00; Stop 11/17/16 at 19:59; Status DC Allopurinol (Zyloprim) 300 mg DAILY PO ; Start 11/17/16 at 09:00; Stop 11/17/16 at 09:00; Status DC Aspirin (Children'S Aspirin) 81 mg DAILY PO Last administered on 11/17/16 10: 15; Start 11/17/16 at 09:00 Calcium Acetate (Phoslo) 667 mg TIDWMEALS PO Last administered on 11/17/16 17: 12; Start 11/17/16 at 09:00 Clopidogrel Bisulfate (Plavix) 75 mg DAILY PO Last administered on 11/17/16 10 :17; Start 11/17/16 at 09:00 Digoxin (Lanoxin) 125 mcg DAILY PO Last administered on 11/17/16 10:16; Start 11/17/16 at 09:00 Famotidine (Pepcid) 20 mg Q48H PO Last administered on 11/17/16 20:45; Start 11/17/16 at 21:00 Vitamin B Complex/ Vitamin C (Mago-Mouna) 1 tab DAILY PO Last administered on 15:06; Start 11/17/16 at 09:00 Gabapentin (Neurontin) 100 mg BID PO Last administered on 11/17/16 20:45; Start 11/17/16 at 09:00 Nitroglycerin (Nitrostat) 0.4 mg PRN Q1HR PRN SL CHEST PAIN; Start 11/17/16 at 08:30 Oxycodone/ Acetaminophen (Percocet 7.5/ 325) 1 tab PRN TID PRN PO MODERATE - SEVERE PAIN Last administered on 11/17/16 20:46; Start 11/17/16 at 08:30 Polyethylene Glycol (miraLAX PACKET) 17 gm PRN DAILY PRN PO CONSTIPATION; Start 11/17/16 at 09:00 Ranolazine (Ranexa) 500 mg DAILY PO Last administered on 11/17/16 10:21; Start 11/17/16 at 09:00 Tamsulosin HCl (Flomax) 0.4 mg HS PO Last administered on 11/17/16 20:46; Start 11/17/16 at 21:00 Insulin Aspart Prota 70%/Aspart 30% (Novolog Mix 70-30) 20 units BIDWMEALS SQ Last administered on 11/17/16 17:24; Start 11/17/16 at 09:00; Stop 11/18/16 at 08:52; Status DC Allopurinol (Zyloprim) 100 mg DAILY PO Last administered on 11/17/16 10:15; Start 11/17/16 at 09:00 Isosorbide Mononitrate (Imdur) 30 mg DAILY PO Last administered on 11/17/16 10 :16; Start 11/17/16 at 09:00 Alprazolam (Xanax) 0.5 mg PRN BID PRN PO ANXIETY / AGITATION Last administered on 11/17/16 23:26; Start 11/17/16 at 23:15 Dextrose (Dextrose 50%-Water Syringe) 25 gm 1X ONCE IV Last administered on 06:28; Start 11/18/16 at 06:30; Stop 11/18/16 at 06:31; Status DC Dextrose 25 gm 25 gm PRN Q15MIN PRN IV LOW BLOOD SUGAR; Start 11/18/16 at 06:30 Sodium Chloride 1,000 ml @ 1,000 mls/hr Q1H PRN IV hypotension; Start 11/18/16 at 07:32; Stop 11/18/16 at 13:31 Sodium Chloride (Iv Sodium Chloride 0.9% 1000ml Bag) 1,000 ml @ 400 mls/hr Q2H30M PRN IV PATENCY; Start 11/18/16 at 07:32; Stop 11/18/16 at 19:31 Info (PHARMACY MONITORING -- do not chart) 1 each PRN DAILY PRN MC SEE COMMENTS ; Start 11/18/16 at 07:45 Lidocaine HCl (Xylocaine-Mpf 1% Vial) 2 ml 1X ONCE SQ Last administered on t 08:27; Start 11/18/16 at 07:45; Stop 11/18/16 at 07:46; Status DC Insulin Aspart Prota 70%/Aspart 30% (Novolog Mix 70-30) 12 units BIDWMEALS SQ ; Start 11/18/16 at 17:00 Active Scripts Active Reported Humulin 70-30 Vial (Hum Insulin Nph/Reg Insulin Hm) 100 Unit/1 Ml Vial 20 Unit SQ BIDWMEALS Gabapentin 100 Mg Capsule 100 Mg PO BID Ranexa (Ranolazine) 500 Mg Tab.er.12h 1 Tab PO DAILY Phoslo (Calcium Acetate) 667 Mg Capsule 667 Mg PO TIDWMEALS Polyethylene Glycol 3350 255 Gm Powder 17 Gm PO DAILY PRN Anoro Ellipta 62.5-25 Mcg Inh (Umeclidinium Brm/Vilanterol Tr) 1 Each Disk.w.dev 1 Each IH DAILY Clopidogrel (Clopidogrel Bisulfate) 75 Mg Tablet 1 Tab PO DAILY Percocet 7.5-325 Mg Tablet (Oxycodone/Acetaminophen) 1 Each Tablet 1 Tab PO TID PRN Dialyvite 800 Tablet (Folic Acid/Vitamin B Comp W-C) 0.8 Mg Tablet 0.8 Mg PO DAILY NITROGLYCERIN SubLingual (Nitroglycerin) 0.4 Mg Tab.subl 0.4 Mg SL PRN Allopurinol 300 Mg Tablet 300 Mg PO DAILY Pepcid (Famotidine) 20 Mg Tablet 20 Mg PO QHS Lanoxin (Digoxin) 125 Mcg Tablet 125 Mcg PO DAILY Flomax (Tamsulosin Hcl) 0.4 Mg Cap.er.24h 0.4 Mg PO HS Aspirin 81 Mg Tab.chew 81 Mg PO DAILY Vitals/I & O Vital Sign - Last 24 Hours 11/17/16 11/17/16 11/17/16 11/17/16 13:51 15:27 15:45 20:00 Temp 98.3 98.3 Pulse 75 Resp 22 B/P 99/71 Pulse Ox 99 94 O2 Delivery Nasal Cannula Room Air Room Air Room Air O2 Flow Rate 2.0 11/17/16 11/17/16 11/17/16 11/18/16 20:02 20:46 23:35 03:00 Temp 97.9 97.9 96.8 97.9 97.9 96.8 Pulse 80 76 77 Resp 20 18 18 20 B/P 94/54 95/58 125/55 Pulse Ox 94 94 91 O2 Delivery Room Air Room Air Room Air Room Air 11/18/16 11/18/16 07:00 08:00 Temp 97.5 97.5 Pulse 77 Resp 14 B/P 112/59 Pulse Ox 98 O2 Delivery Room Air Room Air Intake and Output 11/17/16 11/17/16 11/18/16 15:00 23:00 07:00 Intake Total 460 ml 300 ml Output Total 0 ml Balance 460 ml 300 ml LEXI ALTAMIRANO MD Nov 18, 2016 12:52
[2016-11-18] MEDS: OXYCODONE/APAP 7.5/325 TABLET. PO PRN ×2 (13:43→22:21)
[2016-11-18] MEDS: DIGOXIN 125 MCG TABLET. PO SCH (13:43)
[2016-11-18] MEDS: CLOPIDOGREL BISULFATE 75 MG TABLET PO SCH (13:43)
[2016-11-18] MEDS: FOLIC/VIT B COMP W-C (RENAL) TABLET. PO SCH (13:44)
[2016-11-18] MEDS: ASPIRIN CHEWABLE 81 MG TABLET. PO SCH (13:44)
[2016-11-18] MEDS: ALLOPURINOL 100 MG TABLET. PO SCH (13:44)
[2016-11-18] MEDS: ISOSORBIDE MONONITRATE ER 30 MG TAB.ER.24H PO SCH (13:44)
[2016-11-18 15:00] VITALS: BP 123/55
[2016-11-18 19:12] VITALS: BP 113/56
[2016-11-18] MEDS: TAMSULOSIN 0.4 MG CAP.ER.24H. PO SCH (21:01)
[2016-11-18 22:18] VITALS: BP 105/53
[2016-11-19] MEDS: ALPRAZOLAM 0.5 MG TABLET. PO PRN ×2 (01:41→20:42)
[2016-11-19 03:00] VITALS: BP 109/72
--- NOTE | 2016-11-19 09:02 | PDOC ---
Provider Note Provider Note no moew cp w/ bud ranxa and imdur so will dc imdur and see what happens- d/w dr noonan who feels arteriogram needed re L plantar chronic wound, pt agrees to ir consult SANDEEP YANG MD Nov 19, 2016 09:02
[2016-11-19 09:08] VITALS: BP_SYST 109; BP_SYST 124; BP_DIAS 38; BP_DIAS 55
[2016-11-19] MEDS: CALCIUM ACETATE 667 MG CAPSULE PO SCH ×3 (09:11→17:25)
[2016-11-19] MEDS: ASPIRIN CHEWABLE 81 MG TABLET. PO SCH (09:11)
[2016-11-19] MEDS: CLOPIDOGREL BISULFATE 75 MG TABLET PO SCH (09:12)
[2016-11-19] MEDS: ALLOPURINOL 100 MG TABLET. PO SCH (09:12)
[2016-11-19] MEDS: FOLIC/VIT B COMP W-C (RENAL) TABLET. PO SCH (09:12)
[2016-11-19] MEDS: GABAPENTIN 100 MG CAPSULE. PO SCH ×2 (09:12→20:42)
[2016-11-19] MEDS: RANOLAZINE 500 MG TAB.ER.12H PO SCH ×2 (09:13→20:42)
[2016-11-19] MEDS: DIGOXIN 125 MCG TABLET. PO SCH (09:13)
[2016-11-19] MEDS: INSULN ASP PRT/INSULIN ASPART 300 UNITS/3 ML INSULN.PEN. SQ SCH ×2 (09:16→17:27)
[2016-11-19 11:00] VITALS: BP 106/54
--- NOTE | 2016-11-19 12:33 | PDOC ---
Renal-Progress Notes Subjective Notes Notes NONE History of Present Illness Hx of present illness STABLE Vitals Vitals Vital Signs Date Time Temp Pulse Resp B/P Pulse Ox O2 Delivery O2 Flow Rate FiO2 11/19/16 09:13 68 124/55 11/19/16 09:08 98.6 18 93 Room Air 98.6 Weight Weight [ ] I.O. Intake and Output Intake and Output 11/19/16 06:59 Intake Total 500 ml Output Total 0 ml Balance 500 ml Intake Oral 500 ml Output Urine Total 0 ml # Voids 4 Labs Labs Laboratory Tests Test 11/18/16 12:43 11/18/16 16:46 11/18/16 21:21 11/19/16 08:29 Glucose (Fingerstick) 66mg/dL (70-99) 111mg/dL (70-99) 223mg/dL (70-99) 150mg/dL (70-99) Review of Systems Constitutional: yes: alert, oriented, weakness Ears/Nose/Throat: Yes: no symptom reported Pulmonary: Yes no symptom reported Cardiovascular: Yes no symptom reported Gastrointestional: Yes: constipation Musculoskeletal: Yes: muscle stiffness Skin: Yes no symptom reported Physical Exam General Appearance: no apparent distress Respiratory: bilateral CTA Heart: S1S2, RRR Abdomen: soft, bowel sounds present Genitourinary: bladder flat Neurology: alert Musculoskeletal: Muscle atrophy, Weakness Assessment Assessment IMP NSTEMI CAD CM ANEMIA ESRD PLAN HD TOMORROW LE ARTERIOGRAM PENDING WILL FOLLOW NAVIN ACEVEDO MD Nov 19, 2016 12:33
--- NOTE | 2016-11-19 13:29 | PDOC ---
Provider Note Provider Note IR Note: Asked to consider Dx arteriogram +/- intervention----thank you. Mr Calzada is very pleasant 65 YO male with non-healing left foot wound, which has been present since April of last year. He has multiple CV risk factors, including diabetes, CAD (with ischemic cardiomyopathy), and HTN. He has ESRD, on HD. PMC left lower extremity arterial duplex Doppler done 11/17/16 revealed severe left tibial occlusive disease, without definite flow limiting iliac inflow or SFA-Pop disease. 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 Nonpalpable left PT or AT/DP pulses. No coagulopathy. Agree with Dx angio with possible tibial intervention. Procedure, with benefits and risks, was discussed with Mr Calzada. He understood and is anxious to proceed. Procedure has been tentatively scheduled for tomorrow in IR. NPO post MN. Thanks again. DIANDRA WATTERS MD Nov 19, 2016 13:29
[2016-11-19 15:00] VITALS: BP 97/52
--- NOTE | 2016-11-19 15:42 | PDOC ---
PROGRESS NOTES Subjective Subjective Patient denied anymore episodes of chest pain or SOB with increased Ranexa dose. He would like something to sleep, noting that he has been unable to sleep for 3 days sometimes. He has been able to sleep in the hospital however. When he took ambien for sleep, he had hallucinations. Objective Objective Vital Signs Date Time Temp Pulse Resp B/P Pulse Ox O2 Delivery O2 Flow Rate FiO2 11/19/16 11:00 97.9 61 20 106/54 93 Room Air 97.9 11/17/16 13:51 2.0 Intake and Output 11/19/16 06:59 Intake Total 500 ml Output Total 0 ml Balance 500 ml Intake Oral 500 ml Output Urine Total 0 ml # Voids 4 Physical Exam Abdomen: Normal bowel sounds, Soft Heart: Regular rate, Normal S1, Normal S2 Extremities: No clubbing, No edema General: Alert, Oriented X3, Cooperative, No acute distress HEENT: Atraumatic, EOMI Lungs: Clear to auscultation Neuro: Normal speech, Normal tone Psych/Mental Status: Mental status NL, Mood NL Skin: Other (open sore on L leg) Assessment Assessment Problems Medical Problems: (1) Anemia Status: Acute (2) Chest pain Status: Acute (3) Elevated troponin Status: Acute (4) End stage renal disease Status: Acute Plan Plan of Care Plan -Continue nitro and morphine as needed for CP -Aspirin 325mg -Ranexa to 1000mg PO BID -Pacemaker and defibrillator interrogation has been done in my office -Stable from cardiac standpoint. -Agree with primary team plan of care. -Pt going for aortogram with runoff in AM to evaluate the PVD Comment Review of Relevant I have reviewed the following items nicole (where applicable) has been applied. Labs Laboratory Tests Test 11/17/16 17:18 11/17/16 20:39 11/18/16 04:40 11/18/16 06:17 Glucose (Fingerstick) 111mg/dL (70-99) 80mg/dL (70-99) 50mg/dL (70-99) White Blood Count 10.8x10^3/uL (4.0-11.0) Red Blood Count 3.34x10^6/uL (4.30-5.70) Hemoglobin 10.7g/dL (13.0-17.5) Hematocrit 33.1% (39.0-53.0) Mean Corpuscular Volume 99fL (79-100) Mean Corpuscular Hemoglobin 32pg (25-35) Mean Corpuscular Hemoglobin Concent 32g/dL (31-37) Red Cell Distribution Width 16.4% (11.5-14.5) Platelet Count 162x10^3/uL (140-400) Sodium Level 138mmol/L (136-145) Potassium Level 4.6mmol/L (3.5-5.1) Chloride Level 99mmol/L (98-107) Carbon Dioxide Level 27mmol/L (21-32) Anion Gap 12 (6-14) Blood Urea Nitrogen 63mg/dL (8-26) Creatinine 6.2mg/dL (0.7-1.3) Estimated GFR (Cockcroft-Gault) 9.1 Glucose Level 43mg/dL (70-99) Calcium Level 8.4mg/dL (8.5-10.1) Test 11/18/16 06:30 11/18/16 07:46 11/18/16 12:43 11/18/16 16:46 Glucose (Fingerstick) 160mg/dL (70-99) 85mg/dL (70-99) 66mg/dL (70-99) 111mg/dL (70-99) Test 11/18/16 21:21 11/19/16 08:29 11/19/16 13:08 Glucose (Fingerstick) 223mg/dL (70-99) 150mg/dL (70-99) 198mg/dL (70-99) Laboratory Tests Test 11/18/16 16:46 11/18/16 21:21 11/19/16 08:29 11/19/16 13:08 Glucose (Fingerstick) 111mg/dL (70-99) 223mg/dL (70-99) 150mg/dL (70-99) 198mg/dL (70-99) Medications Current Medications Aspirin (Ant Aspirin) 325 mg 1X ONCE PO ; Start 11/16/16 at 14:15; Stop 11/16 at 14:28; Status DC Morphine Sulfate 4 mg PRN Q15MIN PRN IV/SQ PAIN GREATER THAN 3/10 Last administered on 11/16/16t 16:26; Start 11/16/16 at 14:30; Stop 11/17/16 at 14:29 ; Status DC Ondansetron HCl (Zofran) 4 mg PRN Q8HRS PRN IV NAUSEA/VOMITING; Start 11/16/16 at 16:15; Stop 11/17/16 at 16:14; Status DC Morphine Sulfate 2 mg PRN Q2HR PRN IV PAIN Last administered on 11/17/16 03:51 ; Start 11/16/16 at 16:15; Stop 11/17/16 at 16:14; Status DC Acetaminophen (Tylenol) 650 mg PRN Q4HRS PRN PO FEVER; Start 11/16/16 at 16:15 ; Stop 11/17/16 at 16:14; Status DC Nitroglycerin (Nitrostat) 0.4 mg PRN Q5MIN PRN SL CHEST PAIN; Start 11/16/16 at 16:15; Stop 11/17/16 at 08:58; Status DC Albuterol/ Ipratropium (Duoneb) 3 ml RTQID NEB Last administered on 11/17/16 15:26; Start 11/16/16 at 20:00; Stop 11/17/16 at 19:59; Status DC Allopurinol (Zyloprim) 300 mg DAILY PO ; Start 11/17/16 at 09:00; Stop 11/17/16 at 09:00; Status DC Aspirin (Children'S Aspirin) 81 mg DAILY PO Last administered on 11/19/16 09: 11; Start 11/17/16 at 09:00 Calcium Acetate (Phoslo) 667 mg TIDWMEALS PO Last administered on 11/19/16 12: 16; Start 11/17/16 at 09:00 Clopidogrel Bisulfate (Plavix) 75 mg DAILY PO Last administered on 11/19/16 09 :12; Start 11/17/16 at 09:00 Digoxin (Lanoxin) 125 mcg DAILY PO Last administered on 11/19/16 09:13; Start 11/17/16 at 09:00 Famotidine (Pepcid) 20 mg Q48H PO Last administered on 11/17/16 20:45; Start 11/17/16 at 21:00 Vitamin B Complex/ Vitamin C (Mago-Mouna) 1 tab DAILY PO Last administered on 09:12; Start 11/17/16 at 09:00 Gabapentin (Neurontin) 100 mg BID PO Last administered on 11/19/16 09:12; Start 11/17/16 at 09:00 Nitroglycerin (Nitrostat) 0.4 mg PRN Q1HR PRN SL CHEST PAIN; Start 11/17/16 at 08:30 Oxycodone/ Acetaminophen (Percocet 7.5/ 325) 1 tab PRN TID PRN PO MODERATE - SEVERE PAIN Last administered on 11/18/16 22:21; Start 11/17/16 at 08:30 Polyethylene Glycol (miraLAX PACKET) 17 gm PRN DAILY PRN PO CONSTIPATION; Start 11/17/16 at 09:00 Ranolazine (Ranexa) 500 mg DAILY PO Last administered on 11/17/16 10:21; Start 11/17/16 at 09:00; Stop 11/18/16 at 12:55; Status DC Tamsulosin HCl (Flomax) 0.4 mg HS PO Last administered on 11/18/16 21:01; Start 11/17/16 at 21:00 Insulin Aspart Prota 70%/Aspart 30% (Novolog Mix 70-30) 20 units BIDWMEALS SQ Last administered on 11/17/16 17:24; Start 11/17/16 at 09:00; Stop 11/18/16 at 08:52; Status DC Allopurinol (Zyloprim) 100 mg DAILY PO Last administered on 11/19/16 09:12; Start 11/17/16 at 09:00 Isosorbide Mononitrate (Imdur) 30 mg DAILY PO Last administered on 11/18/16 13 :44; Start 11/17/16 at 09:00; Stop 11/19/16 at 09:01; Status DC Alprazolam (Xanax) 0.5 mg PRN BID PRN PO ANXIETY / AGITATION Last administered on 11/19/16 01:41; Start 11/17/16 at 23:15 Dextrose (Dextrose 50%-Water Syringe) 25 gm 1X ONCE IV Last administered on 06:28; Start 11/18/16 at 06:30; Stop 11/18/16 at 06:31; Status DC Dextrose 25 gm 25 gm PRN Q15MIN PRN IV LOW BLOOD SUGAR; Start 11/18/16 at 06:30 Sodium Chloride 1,000 ml @ 1,000 mls/hr Q1H PRN IV hypotension; Start 11/18/16 at 07:32; Stop 11/18/16 at 13:31; Status DC Sodium Chloride (Iv Sodium Chloride 0.9% 1000ml Bag) 1,000 ml @ 400 mls/hr Q2H30M PRN IV PATENCY; Start 11/18/16 at 07:32; Stop 11/18/16 at 19:31; Status DC Info (PHARMACY MONITORING -- do not chart) 1 each PRN DAILY PRN MC SEE COMMENTS ; Start 11/18/16 at 07:45 Lidocaine HCl (Xylocaine-Mpf 1% Vial) 2 ml 1X ONCE SQ Last administered on 08:27; Start 11/18/16 at 07:45; Stop 11/18/16 at 07:46; Status DC Insulin Aspart Prota 70%/Aspart 30% (Novolog Mix 70-30) 12 units BIDWMEALS SQ Last administered on 11/19/16 09:16; Start 11/18/16 at 17:00 Ranolazine (Ranexa) 1,000 mg BID PO Last administered on 11/19/16 09:13; Start 11/18/16 at 21:00 Active Scripts Active Reported Humulin 70-30 Vial (Hum Insulin Nph/Reg Insulin Hm) 100 Unit/1 Ml Vial 20 Unit SQ BIDWMEALS Gabapentin 100 Mg Capsule 100 Mg PO BID Ranexa (Ranolazine) 500 Mg Tab.er.12h 1 Tab PO DAILY Phoslo (Calcium Acetate) 667 Mg Capsule 667 Mg PO TIDWMEALS Polyethylene Glycol 3350 255 Gm Powder 17 Gm PO DAILY PRN Anoro Ellipta 62.5-25 Mcg Inh (Umeclidinium Brm/Vilanterol Tr) 1 Each Disk.w.dev 1 Each IH DAILY Clopidogrel (Clopidogrel Bisulfate) 75 Mg Tablet 1 Tab PO DAILY Percocet 7.5-325 Mg Tablet (Oxycodone/Acetaminophen) 1 Each Tablet 1 Tab PO TID PRN Dialyvite 800 Tablet (Folic Acid/Vitamin B Comp W-C) 0.8 Mg Tablet 0.8 Mg PO DAILY NITROGLYCERIN SubLingual (Nitroglycerin) 0.4 Mg Tab.subl 0.4 Mg SL PRN Allopurinol 300 Mg Tablet 300 Mg PO DAILY Pepcid (Famotidine) 20 Mg Tablet 20 Mg PO QHS Lanoxin (Digoxin) 125 Mcg Tablet 125 Mcg PO DAILY Flomax (Tamsulosin Hcl) 0.4 Mg Cap.er.24h 0.4 Mg PO HS Aspirin 81 Mg Tab.chew 81 Mg PO DAILY Vitals/I & O Vital Sign - Last 24 Hours 11/18/16 11/18/16 11/18/16 11/18/16 19:12 20:00 21:01 22:18 Temp 97.8 97.9 97.8 97.9 Pulse 79 79 Resp 20 20 B/P 113/56 113/56 105/53 Pulse Ox 94 96 O2 Delivery Room Air Room Air Room Air 11/18/16 11/18/16 11/19/16 11/19/16 22:21 23:21 03:00 08:00 Temp 98.0 98.0 Pulse 71 Resp 16 16 18 B/P 109/72 Pulse Ox 96 O2 Delivery Room Air Room Air Room Air Room Air 11/19/16 11/19/16 11/19/16 11/19/16 09:08 09:13 09:13 11:00 Temp 98.6 97.9 98.6 97.9 Pulse 68 68 68 61 Resp 18 20 B/P 124/55 124/55 124/55 106/54 Pulse Ox 93 93 O2 Delivery Room Air Room Air Intake and Output 11/18/16 11/18/16 11/19/16 14:59 22:59 06:59 Intake Total 500 ml Output Total 0 ml Balance 500 ml LEXI ALTAMIRANO MD Nov 19, 2016 15:41
[2016-11-19] MEDS ORDERED: DIPHENHYDRAMINE HCL 25 MG CAPSULE PO PRN (15:45)
[2016-11-19] MEDS: OXYCODONE/APAP 7.5/325 TABLET. PO PRN (18:44)
[2016-11-19 19:59] VITALS: BP 119/56
[2016-11-19] MEDS: TAMSULOSIN 0.4 MG CAP.ER.24H. PO SCH (20:42)
[2016-11-19] MEDS: FAMOTIDINE 20 MG TABLET. PO SCH (20:42)
[2016-11-19 23:26] VITALS: BP 109/45
[2016-11-20] VITALS (12 sets, daily range): BP systolic 97–128; BP diastolic 36–107
[2016-11-20 05:40] LABS: HEMATOCRIT 34.6 % (39.0-53.0); HEMOGLOBIN 11.3 g/dL (13.0-17.5); RED BLOOD COUNT 3.54 x10^6/uL (4.30-5.70); WHITE BLOOD COUNT 8.6 x10^3/uL (4.0-11.0)
[2016-11-20 05:50] LABS: CALCIUM 8.4 mg/dL (8.5-10.1); CREATININE 5.4 mg/dL (0.7-1.3); GFR 10.6; POTASSIUM 5.6 mmol/L (3.5-5.1)
[2016-11-20] MEDS: INSULN ASP PRT/INSULIN ASPART 300 UNITS/3 ML INSULN.PEN. SQ SCH ×2 (08:00→17:40)
[2016-11-20] MEDS: CALCIUM ACETATE 667 MG CAPSULE PO SCH ×3 (08:00→17:37)
[2016-11-20] MEDS ORDERED: IV NORMAL SALINE 1000ML BAG 1,000 ML IV PRN ×2 (08:29)
[2016-11-20] MEDS ORDERED: ALBUMIN HUMAN 25% 200 ML IV PRN (08:30)
[2016-11-20] MEDS ORDERED: DIALYSIS PATIENT. MC PRN (08:30)
--- NOTE | 2016-11-20 08:57 | PDOC ---
Provider Note Provider Note in IR for angio L leg SANDEEP YANG MD Nov 20, 2016 08:57
[2016-11-20] MEDS: GABAPENTIN 100 MG CAPSULE. PO SCH ×2 (09:00→22:22)
[2016-11-20] MEDS: RANOLAZINE 500 MG TAB.ER.12H PO SCH ×2 (09:00→22:22)
--- NOTE | 2016-11-20 11:28 | PDOC ---
Renal-Progress Notes Subjective Notes Notes NONE History of Present Illness Hx of present illness NO CHANGE Vitals Vitals Vital Signs Date Time Temp Pulse Resp B/P Pulse Ox O2 Delivery O2 Flow Rate FiO2 11/20/16 08:00 Room Air 11/20/16 07:24 97.6 63 18 98/48 95 97.6 11/19/16 20:00 2.0 Weight Weight [ ] I.O. Intake and Output Intake and Output 11/20/16 06:59 Intake Total 540 ml Output Total 300 ml Balance 240 ml Intake Oral 540 ml Output Urine Total 300 ml Labs Labs Laboratory Tests Test 11/19/16 13:08 11/19/16 17:07 11/19/16 21:12 11/20/16 04:45 Glucose (Fingerstick) 198mg/dL (70-99) 149mg/dL (70-99) 126mg/dL (70-99) White Blood Count 8.6x10^3/uL (4.0-11.0) Red Blood Count 3.54x10^6/uL (4.30-5.70) Hemoglobin 11.3g/dL (13.0-17.5) Hematocrit 34.6% (39.0-53.0) Mean Corpuscular Volume 98fL (79-100) Mean Corpuscular Hemoglobin 32pg (25-35) Mean Corpuscular Hemoglobin Concent 33g/dL (31-37) Red Cell Distribution Width 16.0% (11.5-14.5) Platelet Count 134x10^3/uL (140-400) Sodium Level 136mmol/L (136-145) Potassium Level 5.6mmol/L (3.5-5.1) Chloride Level 96mmol/L (98-107) Carbon Dioxide Level 28mmol/L (21-32) Anion Gap 12 (6-14) Blood Urea Nitrogen 55mg/dL (8-26) Creatinine 5.4mg/dL (0.7-1.3) Estimated GFR (Cockcroft-Gault) 10.6 Glucose Level 178mg/dL (70-99) Calcium Level 8.4mg/dL (8.5-10.1) Test 11/20/16 07:26 Glucose (Fingerstick) 158mg/dL (70-99) Review of Systems Constitutional: yes: alert, oriented, weakness Ears/Nose/Throat: Yes: no symptom reported Pulmonary: Yes no symptom reported Cardiovascular: Yes no symptom reported Gastrointestional: Yes: constipation Musculoskeletal: Yes: muscle stiffness Skin: Yes no symptom reported Physical Exam General Appearance: no apparent distress Respiratory: bilateral CTA Heart: S1S2, RRR Abdomen: soft, bowel sounds present Genitourinary: bladder flat Neurology: alert Musculoskeletal: Muscle atrophy, Weakness Assessment Assessment IMP NSTEMI CAD CM ANEMIA ESRD PLAN HD TODAY UF TO [facility] ARTERIOGRAM PENDING WILL FOLLOW NAVIN ACEVEDO MD Nov 20, 2016 11:27
[2016-11-20] MEDS ORDERED: IODIXANOL 320 MG/ML 100 ML VIAL. ONE (14:03)
[2016-11-20] MEDS ORDERED: LIDOCAINE 1% / SOD BICARB 8.4% 20 ML VIAL. IJ ONE ×2 (14:03→14:30)
[2016-11-20] MEDS ORDERED: IOHEXOL 300 MG/ML 100ML VIAL. ONE (14:03)
[2016-11-20] MEDS ORDERED: HEPARIN for ARTERIAL LINE 1,500 ML ONE (14:03)
[2016-11-20] MEDS ORDERED: IODIXANOL 320MG/ML 50ML VIAL. ONE (14:03)
[2016-11-20] MEDS ORDERED: MIDAZOLAM HCL/PF 5 MG/5 ML VIAL. ONE (14:16)
[2016-11-20] MEDS ORDERED: FENTANYL PF 250 MCG/5 ML VIAL. ONE (14:16)
[2016-11-20] MEDS ORDERED: HEPARIN for IV BOLUS 10,000 UNIT/10 ML VIAL. ONE (14:17)
[2016-11-20] MEDS ORDERED: IOHEXOL 300 MG/ML 100ML VIAL. IART ONE (14:30)
[2016-11-20] MEDS ORDERED: IODIXANOL 320 MG/ML 100 ML VIAL. IART ONE (14:30)
[2016-11-20] MEDS ORDERED: FENTANYL PF 250 MCG/5 ML VIAL. IV ONE (14:30)
[2016-11-20] MEDS ORDERED: CONTRAST GIVEN MC PRN (14:30)
[2016-11-20] MEDS ORDERED: MIDAZOLAM HCL/PF 5 MG/5 ML VIAL. IV ONE (14:30)
--- NOTE | 2016-11-20 14:42 | PDOC ---
PROGRESS NOTES Subjective Subjective Patient in IR having aortogram. Objective Objective Vital Signs Date Time Temp Pulse Resp B/P Pulse Ox O2 Delivery O2 Flow Rate FiO2 11/20/16 14:21 98.3 70 19 97/49 93 Room Air 98.3 11/19/16 20:00 2.0 Intake and Output 11/20/16 07:00 Intake Total 540 ml Output Total 300 ml Balance 240 ml Intake Oral 540 ml Output Urine Total 300 ml Assessment Assessment Problems Medical Problems: (1) Anemia Status: Acute (2) Chest pain Status: Acute (3) Elevated troponin Status: Acute (4) End stage renal disease Status: Acute Plan Plan of Care Plan -Continue nitro and morphine as needed for CP -Aspirin 325mg -Ranexa to 1000mg PO BID -Pacemaker and defibrillator interrogation has been done in my office -Stable from cardiac standpoint. -Agree with plan of care. -Awaiting aortogram results for PVD Comment Review of Relevant I have reviewed the following items nicole (where applicable) has been applied. Labs Laboratory Tests Test 11/18/16 16:46 11/18/16 21:21 11/19/16 08:29 11/19/16 13:08 Glucose (Fingerstick) 111mg/dL (70-99) 223mg/dL (70-99) 150mg/dL (70-99) 198mg/dL (70-99) Test 11/19/16 17:07 11/19/16 21:12 11/20/16 04:45 11/20/16 07:26 Glucose (Fingerstick) 149mg/dL (70-99) 126mg/dL (70-99) 158mg/dL (70-99) White Blood Count 8.6x10^3/uL (4.0-11.0) Red Blood Count 3.54x10^6/uL (4.30-5.70) Hemoglobin 11.3g/dL (13.0-17.5) Hematocrit 34.6% (39.0-53.0) Mean Corpuscular Volume 98fL (79-100) Mean Corpuscular Hemoglobin 32pg (25-35) Mean Corpuscular Hemoglobin Concent 33g/dL (31-37) Red Cell Distribution Width 16.0% (11.5-14.5) Platelet Count 134x10^3/uL (140-400) Sodium Level 136mmol/L (136-145) Potassium Level 5.6mmol/L (3.5-5.1) Chloride Level 96mmol/L (98-107) Carbon Dioxide Level 28mmol/L (21-32) Anion Gap 12 (6-14) Blood Urea Nitrogen 55mg/dL (8-26) Creatinine 5.4mg/dL (0.7-1.3) Estimated GFR (Cockcroft-Gault) 10.6 Glucose Level 178mg/dL (70-99) Calcium Level 8.4mg/dL (8.5-10.1) Laboratory Tests Test 11/19/16 17:07 11/19/16 21:12 11/20/16 04:45 11/20/16 07:26 Glucose (Fingerstick) 149mg/dL (70-99) 126mg/dL (70-99) 158mg/dL (70-99) White Blood Count 8.6x10^3/uL (4.0-11.0) Red Blood Count 3.54x10^6/uL (4.30-5.70) Hemoglobin 11.3g/dL (13.0-17.5) Hematocrit 34.6% (39.0-53.0) Mean Corpuscular Volume 98fL (79-100) Mean Corpuscular Hemoglobin 32pg (25-35) Mean Corpuscular Hemoglobin Concent 33g/dL (31-37) Red Cell Distribution Width 16.0% (11.5-14.5) Platelet Count 134x10^3/uL (140-400) Sodium Level 136mmol/L (136-145) Potassium Level 5.6mmol/L (3.5-5.1) Chloride Level 96mmol/L (98-107) Carbon Dioxide Level 28mmol/L (21-32) Anion Gap 12 (6-14) Blood Urea Nitrogen 55mg/dL (8-26) Creatinine 5.4mg/dL (0.7-1.3) Estimated GFR (Cockcroft-Gault) 10.6 Glucose Level 178mg/dL (70-99) Calcium Level 8.4mg/dL (8.5-10.1) Medications Current Medications Aspirin ([place] Reseach Aspirin) 325 mg 1X ONCE PO ; Start 11/16/16 at 14:15; Stop 11/16 at 14:28; Status DC Morphine Sulfate 4 mg PRN Q15MIN PRN IV/SQ PAIN GREATER THAN 3/10 Last administered on 11/16/16 16:26; Start 11/16/16 at 14:30; Stop 11/17/16 at 14:29 ; Status DC Ondansetron HCl (Zofran) 4 mg PRN Q8HRS PRN IV NAUSEA/VOMITING; Start 11/16/16 at 16:15; Stop 11/17/16 at 16:14; Status DC Morphine Sulfate 2 mg PRN Q2HR PRN IV PAIN Last administered on 11/17/16 03:51 ; Start 11/16/16 at 16:15; Stop 11/17/16 at 16:14; Status DC Acetaminophen (Tylenol) 650 mg PRN Q4HRS PRN PO FEVER; Start 11/16/16 at 16:15 ; Stop 11/17/16 at 16:14; Status DC Nitroglycerin (Nitrostat) 0.4 mg PRN Q5MIN PRN SL CHEST PAIN; Start 11/16/16 at 16:15; Stop 11/17/16 at 08:58; Status DC Albuterol/ Ipratropium (Duoneb) 3 ml RTQID NEB Last administered on 11/17/16 15:26; Start 11/16/16 at 20:00; Stop 11/17/16 at 19:59; Status DC Allopurinol (Zyloprim) 300 mg DAILY PO ; Start 11/17/16 at 09:00; Stop 11/17/16 at 09:00; Status DC Aspirin (Children'S Aspirin) 81 mg DAILY PO Last administered on 11/19/16 09: 11; Start 11/17/16 at 09:00 Calcium Acetate (Phoslo) 667 mg TIDWMEALS PO Last administered on 11/19/16 17: 25; Start 11/17/16 at 09:00 Clopidogrel Bisulfate (Plavix) 75 mg DAILY PO Last administered on 11/19/16 09 :12; Start 11/17/16 at 09:00 Digoxin (Lanoxin) 125 mcg DAILY PO Last administered on 11/19/16 09:13; Start 11/17/16 at 09:00 Famotidine (Pepcid) 20 mg Q48H PO Last administered on 11/19/16 20:42; Start 11/17/16 at 21:00 Vitamin B Complex/ Vitamin C (Mago-Mouna) 1 tab DAILY PO Last administered on 09:12; Start 11/17/16 at 09:00 Gabapentin (Neurontin) 100 mg BID PO Last administered on 11/19/16 20:42; Start 11/17/16 at 09:00 Nitroglycerin (Nitrostat) 0.4 mg PRN Q1HR PRN SL CHEST PAIN; Start 11/17/16 at 08:30 Oxycodone/ Acetaminophen (Percocet 7.5/ 325) 1 tab PRN TID PRN PO MODERATE - SEVERE PAIN Last administered on 11/19/16 18:44; Start 11/17/16 at 08:30 Polyethylene Glycol (miraLAX PACKET) 17 gm PRN DAILY PRN PO CONSTIPATION; Start 11/17/16 at 09:00 Ranolazine (Ranexa) 500 mg DAILY PO Last administered on 11/17/16 10:21; Start 11/17/16 at 09:00; Stop 11/18/16 at 12:55; Status DC Tamsulosin HCl (Flomax) 0.4 mg HS PO Last administered on 11/19/16 20:42; Start 11/17/16 at 21:00 Insulin Aspart Prota 70%/Aspart 30% (Novolog Mix 70-30) 20 units BIDWMEALS SQ Last administered on 11/17/16 17:24; Start 11/17/16 at 09:00; Stop 11/18/16 at 08:52; Status DC Allopurinol (Zyloprim) 100 mg DAILY PO Last administered on 11/19/16 09:12; Start 11/17/16 at 09:00 Isosorbide Mononitrate (Imdur) 30 mg DAILY PO Last administered on 11/18/16 13 :44; Start 11/17/16 at 09:00; Stop 11/19/16 at 09:01; Status DC Alprazolam (Xanax) 0.5 mg PRN BID PRN PO ANXIETY / AGITATION Last administered on 11/19/16 20:42; Start 11/17/16 at 23:15 Dextrose (Dextrose 50%-Water Syringe) 25 gm 1X ONCE IV Last administered on 06:28; Start 11/18/16 at 06:30; Stop 11/18/16 at 06:31; Status DC Dextrose 25 gm 25 gm PRN Q15MIN PRN IV LOW BLOOD SUGAR; Start 11/18/16 at 06:30 Sodium Chloride 1,000 ml @ 1,000 mls/hr Q1H PRN IV hypotension; Start 11/18/16 at 07:32; Stop 11/18/16 at 13:31; Status DC Sodium Chloride (Iv Sodium Chloride 0.9% 1000ml Bag) 1,000 ml @ 400 mls/hr Q2H30M PRN IV PATENCY; Start 11/18/16 at 07:32; Stop 11/18/16 at 19:31; Status DC Info (PHARMACY MONITORING -- do not chart) 1 each PRN DAILY PRN MC SEE COMMENTS ; Start 11/18/16 at 07:45 Lidocaine HCl (Xylocaine-Mpf 1% Vial) 2 ml 1X ONCE SQ Last administered on 08:27; Start 11/18/16 at 07:45; Stop 11/18/16 at 07:46; Status DC Insulin Aspart Prota 70%/Aspart 30% (Novolog Mix 70-30) 12 units BIDWMEALS SQ Last administered on 11/19/16 17:27; Start 11/18/16 at 17:00 Ranolazine (Ranexa) 1,000 mg BID PO Last administered on 11/19/16 20:42; Start 11/18/16 at 21:00 Diphenhydramine HCl 25 mg 25 mg PRN QHS PRN PO INSOMNIA Last administered on 02:08; Start 11/19/16 at 15:45 Sodium Chloride 1,000 ml @ 1,000 mls/hr Q1H PRN IV hypotension; Start 11/20/16 at 08:29; Stop 11/20/16 at 14:28; Status DC Albumin Human 200 ml @ 200 mls/hr 1X PRN PRN IV Hypotension; Start 11/20/16 at 08:30; Stop 11/20/16 at 14:29; Status DC Sodium Chloride (Iv Sodium Chloride 0.9% 1000ml Bag) 1,000 ml @ 400 mls/hr Q2H30M PRN IV PATENCY; Start 11/20/16 at 08:29; Stop 11/20/16 at 20:28 Info (PHARMACY MONITORING -- do not chart) 1 each PRN DAILY PRN MC SEE COMMENTS ; Start 11/20/16 at 08:30; Status UNV Iodixanol (Visipaque 320) 50 ml STK-MED ONCE .ROUTE ; Start 11/20/16 at 14:03; Stop 11/20/16 at 14:04; Status DC Iohexol (Omnipaque 300 Mg/ml) 100 ml STK-MED ONCE .ROUTE ; Start 11/20/16 at 14: 03; Stop 11/20/16 at 14:04; Status DC Lidocaine/Sodium Bicarbonate 20 ml 20 ml STK-MED ONCE IJ ; Start 11/20/16 at 14: 03; Stop 11/20/16 at 14:04; Status DC Heparin Sodium/ Sodium Chloride 1,500 ml @ As Directed STK-MED ONCE .ROUTE ; Start 11/20/16 at 14:03; Stop 11/20/16 at 14:04; Status DC Iodixanol (Visipaque 320) 100 ml STK-MED ONCE .ROUTE ; Start 11/20/16 at 14:03; Stop 11/20/16 at 14:04; Status DC Midazolam HCl (Versed) 5 mg STK-MED ONCE .ROUTE ; Start 11/20/16 at 14:16; Stop 11/20/16 at 14:17; Status DC Fentanyl Citrate (Fentanyl 5ml Vial) 250 mcg STK-MED ONCE .ROUTE ; Start at 14:16; Stop 11/20/16 at 14:17; Status DC Heparin Sodium (Porcine) (Heparin Sodium) 10,000 unit STK-MED ONCE .ROUTE ; Start 11/20/16 at 14:17; Stop 11/20/16 at 14:18; Status DC Heparin Sodium/ Sodium Chloride 1,000 unit 1X ONCE IART ; Start 11/20/16 at 14: 30; Stop 11/20/16 at 14:31; Status DC Lidocaine/Sodium Bicarbonate (Buffered Lidocaine 1%) 20 ml 1X ONCE IJ ; Start 11/20/16 at 14:30; Stop 11/20/16 at 14:31; Status DC Midazolam HCl (Versed) 5 mg 1X ONCE IV ; Start 11/20/16 at 14:30; Stop at 14:31; Status DC Fentanyl Citrate (Fentanyl 5ml Vial) 5 mcg 1X ONCE IV ; Start 11/20/16 at 14:30 ; Stop 11/20/16 at 14:31; Status DC Iohexol (Omnipaque 300 Mg/ml) 100 ml 1X ONCE IART ; Start 11/20/16 at 14:30; Stop 11/20/16 at 14:31; Status DC Iodixanol (Visipaque 320) 100 ml 1X ONCE IART ; Start 11/20/16 at 14:30; Stop 11/20/16 at 14:31; Status DC Info (Do NOT chart on this entry -- for MONITORING) 1 each PRN DAILY PRN MC SEE COMMENTS; Start 11/20/16 at 14:30; Stop 11/22/16 at 14:29 Active Scripts Active Reported Humulin 70-30 Vial (Hum Insulin Nph/Reg Insulin Hm) 100 Unit/1 Ml Vial 20 Unit SQ BIDWMEALS Gabapentin 100 Mg Capsule 100 Mg PO BID Ranexa (Ranolazine) 500 Mg Tab.er.12h 1 Tab PO DAILY Phoslo (Calcium Acetate) 667 Mg Capsule 667 Mg PO TIDWMEALS Polyethylene Glycol 3350 255 Gm Powder 17 Gm PO DAILY PRN Anoro Ellipta 62.5-25 Mcg Inh (Umeclidinium Brm/Vilanterol Tr) 1 Each Disk.w.dev 1 Each IH DAILY Clopidogrel (Clopidogrel Bisulfate) 75 Mg Tablet 1 Tab PO DAILY Percocet 7.5-325 Mg Tablet (Oxycodone/Acetaminophen) 1 Each Tablet 1 Tab PO TID PRN Dialyvite 800 Tablet (Folic Acid/Vitamin B Comp W-C) 0.8 Mg Tablet 0.8 Mg PO DAILY NITROGLYCERIN SubLingual (Nitroglycerin) 0.4 Mg Tab.subl 0.4 Mg SL PRN Allopurinol 300 Mg Tablet 300 Mg PO DAILY Pepcid (Famotidine) 20 Mg Tablet 20 Mg PO QHS Lanoxin (Digoxin) 125 Mcg Tablet 125 Mcg PO DAILY Flomax (Tamsulosin Hcl) 0.4 Mg Cap.er.24h 0.4 Mg PO HS Aspirin 81 Mg Tab.chew 81 Mg PO DAILY Vitals/I & O Vital Sign - Last 24 Hours 4/1311/19/16 11/19/16 11/19/16 15:00 18:44 19:44 19:59 Temp 97.4 97.4 Pulse 60 61 Resp 16 B/P 97/52 119/56 Pulse Ox 93 93 90 90 O2 Delivery Room Air Room Air Room Air Room Air O2 Flow Rate 2.0 2.0 11/19/16 11/19/16 11/19/16 11/20/16 20:00 20:42 23:26 03:21 Temp 97.6 97.7 97.6 97.7 Pulse 61 68 70 Resp 16 16 B/P 119/56 109/45 126/39 Pulse Ox 96 94 O2 Delivery Room Air Room Air Room Air O2 Flow Rate 2.0 11/20/16 11/20/16 11/20/16 07:24 08:00 14:21 Temp 97.6 98.3 97.6 98.3 Pulse 63 70 Resp 18 19 B/P 98/48 97/49 Pulse Ox 95 93 O2 Delivery Room Air Room Air Room Air Intake and Output 11/19/16 11/19/16 11/20/16 15:00 23:00 07:00 Intake Total 120 ml 120 ml 300 ml Output Total 300 ml Balance 120 ml -180 ml 300 ml LEXI ALTAMIRANO MD Nov 20, 2016 14:42
[2016-11-20] MEDS ORDERED: HEPARIN for IV BOLUS 10,000 UNIT/10 ML VIAL. IV ONE (15:15)
--- NOTE | 2016-11-20 16:25 | PDOC ---
MODERATE SEDATION ASSESSMENT RISKS/ALTERNATIVES Risks/Alternatives Risks and alternatives of this type of sedation and procedure discussed with: RISK/ALTERNATIVES: Patient H & P ON CHART H & P H & P on chart and reviewed for co-morbid conditions and appropriate labs. H&P ON CHART: Yes STATUS PREG STATUS ASSESSED: N/A MEDS/ALLERGIES REVIEWED Meds/Allergies Reviewed Medications and Allergies including time and route of recently administered narcotics and sedatives. MEDS/ALLERGIES REVIEWED: Yes ASA RATING ASA RATING: III AIRWAY ASSESSMENT Airway Assessment Airway patency, oral function limitations, presence of caps, crowns, dentures, partials, and ability to extend neck assessed. AIRWAY ASSESSMENT: Yes MALLAMPATI SCORE MALLAMPATI SCORE: II PRE-SEDATION ASSESSMENT PRE-SEDATION ASSESSMENT: Yes DIANDRA WATTERS MD Nov 20, 2016 16:25
--- NOTE | 2016-11-20 16:28 | PDOC ---
Exam Size Marker Size Marker Jack Aircraft Shipping Checker Aircraft Shipping Checker B Cates Pre-Procedure Diagnosis Pre-Procedure Diagnosis 65 YO male with CAD, Cardiomyopathy, HTN, and non-healing plantar left foot wound. PMC duplex Doppler from 11/17 c/w severe tibial occlusive disease. Post-Procedure Diagnosis Post-Procedure Diagnosis No significant iliac inflow disease, bilaterally. No significant left Fem-Pop disease. Focal, critical distal left tibioperoneal trunk stenosis. Single vessel PT r/o thru plantar arteries at mid-forefoot. Procedure Performed Procedure Performed Abdominal aortogram with selective left lower extremity angio. DIRECTOR GRAPHICS left tibioperoneal trunk critical stenosis. Type of Anesthesia Type of Anesthesia Local + Mod sedation. Estimated Blood Loss EBL: 50 cc Condition of Patient Condition of Patient Stable. No apparent complication. Disposition Disposition From IR return to [facility]. Continue daily Plavix and ASA. F/u with Dr Calzada and Dr Matthews. Full report to follow. DIANDRA WATTERS MD Nov 20, 2016 16:28
[2016-11-20] MEDS: DIGOXIN 125 MCG TABLET. PO SCH (17:36)
[2016-11-20] MEDS: CLOPIDOGREL BISULFATE 75 MG TABLET PO SCH (17:37)
[2016-11-20] MEDS: ASPIRIN CHEWABLE 81 MG TABLET. PO SCH (17:37)
[2016-11-20] MEDS: ALLOPURINOL 100 MG TABLET. PO SCH (17:37)
[2016-11-20] MEDS: FOLIC/VIT B COMP W-C (RENAL) TABLET. PO SCH (17:37)
[2016-11-20] MEDS: TAMSULOSIN 0.4 MG CAP.ER.24H. PO SCH (22:22)
[2016-11-20] MEDS: ALPRAZOLAM 0.5 MG TABLET. PO PRN (22:29)
[2016-11-20] MEDS: OXYCODONE/APAP 7.5/325 TABLET. PO PRN (22:30)
[2016-11-21] VITALS (7 sets, daily range): BP systolic 92–105; BP diastolic 39–69
[2016-11-21] MEDS: INSULN ASP PRT/INSULIN ASPART 300 UNITS/3 ML INSULN.PEN. SQ SCH ×2 (08:00→17:17)
[2016-11-21] MEDS: GABAPENTIN 100 MG CAPSULE. PO SCH ×2 (08:05→22:10)
[2016-11-21] MEDS: CALCIUM ACETATE 667 MG CAPSULE PO SCH ×3 (08:05→17:11)
[2016-11-21] MEDS: CLOPIDOGREL BISULFATE 75 MG TABLET PO SCH (08:06)
[2016-11-21] MEDS: ASPIRIN CHEWABLE 81 MG TABLET. PO SCH (08:06)
[2016-11-21] MEDS: ALLOPURINOL 100 MG TABLET. PO SCH (08:06)
[2016-11-21] MEDS: FOLIC/VIT B COMP W-C (RENAL) TABLET. PO SCH (08:06)
[2016-11-21] MEDS: RANOLAZINE 500 MG TAB.ER.12H PO SCH ×2 (09:00→21:00)
[2016-11-21] MEDS: DIGOXIN 125 MCG TABLET. PO SCH (09:00)
--- NOTE | 2016-11-21 11:56 | PDOC ---
Provider Note Provider Note weak after ptca, bp lowish- exam same- glucose still lower, will reduce insulin further from 12- to 8- will need rehab SANDEEP YANG MD Nov 21, 2016 11:56
[2016-11-21] MEDS ORDERED: IV NORMAL SALINE 250ML 250 ML IV ONE (12:00)
--- NOTE | 2016-11-21 12:08 | RAD ---
Abdominal aortogram with selective left lower extremity arteriogram DATA SYSTEMS MANAGER left tibioperoneal trunk Indication: 65-year-old male with nonhealing plantar left foot wound and with abnormal duplex Doppler, consistent with severe left tibial occlusive disease. Diagnostic arteriogram, with possible intervention, has been requested. Fluoroscopy time: 14.3 minutes Kerma-area Product: 146 Gycm2 Contrast material: 55 cc Omnipaque 300. 45 cc Visipaque 320. Anesthesia: 66 minutes moderate sedation was provided utilizing a total of 1 mg Versed and 50 mcg fentanyl, IV. The patient was appropriately monitored by a qualified independent observer throughout the time of moderate sedation. Consent: The procedure was explained in its entirety to the patient and/or the patient's designated contracts representative by a member of the treatment team. This included a discussion of risks and benefits and commonly accepted alternatives to the procedure, as well as expected consequences of no treatment at all. Discussion of risks included, but was not limited to, those that are most frequent and those that are rare, but possibly severe or life-threatening, as well as the possibility of unforeseen complications. Sterility: All elements of maximal sterile barrier technique were utilized, including cap, mask, sterile gown, sterile gloves, large sterile sheet, appropriate hand hygiene, and 2% chlorhexidine for cutaneous antisepsis. Procedure: Informed consent was obtained from the patient. He was placed supine on the angiography table. Preliminary ultrasound examination of right groin revealed wide patency of right common femoral artery, which was documented with a single hard copy ultrasound image. Right groin was then prepped and draped in the usual sterile fashion, utilizing all elements of maximal sterile barrier technique, as described above. Moderate sedation was provided with IV Versed and fentanyl. Using aseptic technique, local anesthesia, direct ultrasound guidance, and the micropuncture system, a 5 Togolese right common femoral artery sheath was successfully introduced. Abdominal aortogram: A 5 Togolese Omni Flush catheter was advanced into upper abdominal aorta through the right groin sheath. Omnipaque 300 was injected and abdominal aortogram DSA images were obtained. Findings: Infrarenal abdominal aorta is calcific, but is normal in caliber, without stricture. There is no abdominal aortic aneurysm. Celiac trunk, SMA, and SOSA are opacified. Right kidney is surgically absent. Left renal artery is quite small in caliber in this patient with end-stage renal disease. Oblique pelvis injections: The Omni Flush catheter was withdrawn into terminal abdominal aorta, just above bifurcation. Omnipaque 300 was injected and DSA images were obtained in CASIMIRO and SHERMAN projections. Findings: Severe stenosis is noted at origin of SOSA. No significant common iliac artery or external iliac artery stenosis is demonstrated, bilaterally. Both hypogastric arteries are patent. Left lower extremity arteriogram: The 5 Togolese Omni Flush catheter was exchanged over a Glidewire for a 4 Togolese Cobra 2 catheter, which was advanced across aortic bifurcation and was positioned within contralateral left common femoral artery. Visipaque was injected and DSA images were obtained centered over left groin. The Cobra catheter was then exchanged for a 0.035 inch quick cross catheter, which was advanced into proximal left SFA. Dilute Visipaque was injected and DSA images were obtained from proximal thigh through the knee. The quick cross catheter was further advanced into mid left popliteal artery. Dilute Visipaque was again injected and DSA images were obtained from knee through ankle/foot. Findings: Left common femoral artery is widely patent. Left deep femoral artery is small in caliber, but without significant proximal stenosis. There is minor eccentric calcific narrowing of proximal left SFA. No significant left SFA-popliteal stenosis was demonstrated. Left anterior tibial artery is occluded approximately 3 cm distal to its origin without distal reconstitution. There is focal, critical stenosis within distal aspect of left tibioperoneal trunk, extending near origins of posterior tibial and peroneal arteries. Left posterior tibial artery appears widely patent from origin through medial and lateral plantar arteries at mid foot. Small caliber peroneal artery is opacified to distal calf. DATA SYSTEMS MANAGER left tibioperoneal trunk: Due to this patient's nonhealing plantar left foot ulceration, the decision was made to proceed with balloon angioplasty of the focal, critical stenosis within distal left tibioperoneal trunk. The quick cross catheter, previously positioned within mid left popliteal artery, was removed over a Maven advantage guidewire. The 5 Togolese right groin sheath was exchanged over the advantage wire for a 6 Togolese Justin 2 sheath, which was advanced across aortic bifurcation into contralateral left common femoral artery. A 6 Togolese guiding catheter was then advanced through the Ancel sheath over the advantage wire and was positioned within below knee left popliteal artery. A 0.018 inch quick cross catheter was then inserted through the guiding catheter and was successfully advanced across the critical distal left tibioperoneal trunk stenosis into left posterior tibial artery over a Terumo GT microguidewire. Satisfactory intraluminal position of the quick cross catheter within posterior tibial artery was confirmed with a contrast injection. 5000 units heparin was then given bolus IV. The quick cross catheter was exchanged over a long grand slam microguidewire for a 3.5 mm x 20 mm savvy DATA SYSTEMS MANAGER balloon, which was utilized to perform prolonged (5 minutes) balloon dilatation of the focal critical distal left tibioperoneal trunk lesion to a peak pressure of 14 kay. The DATA SYSTEMS MANAGER balloon was then deflated and removed. Dilute Visipaque was injected through the guiding catheter and completion DSA images were obtained. Those images revealed markedly improved caliber of distal left tibioperoneal trunk, with significantly improved flow through posterior tibial and peroneal arteries. There was no evidence of complicating dissection, thrombosis, or distal embolization. Patient tolerated the procedure well without apparent complication. Hemostasis was achieved at the right groin puncture site utilizing the Mynx closure system. Impression: 1. No abdominal aortic aneurysm or significant iliac inflow stenosis, bilaterally. 2. No hemodynamically significant left SFA-popliteal lesion. 3. Critical stenosis within distal left tibioperoneal trunk, for which successful, uneventful balloon angioplasty was performed, providing significantly improved inflow into left posterior tibial and peroneal arteries. 4. Dominant single vessel distal runoff is provided via large caliber posterior tibial artery, which is widely patent from origin through medial and lateral plantar arteries at mid foot. Left peroneal artery is widely patent proximally, but is not opacified below distal calf. Anterior tibial artery is occluded just distal to its origin, without distal reconstitution.
[2016-11-21] MEDS ORDERED: ALBUMIN HUMAN 5% 500 ML IV ONE (15:00)
--- NOTE | 2016-11-21 15:23 | PDOC ---
PROGRESS NOTES Subjective Subjective Patient is very weak and fatigued today. His BP has been running low today. Objective Objective Vital Signs Date Time Temp Pulse Resp B/P Pulse Ox O2 Delivery O2 Flow Rate FiO2 11/21/16 15:15 60 98/53 99 Nasal Cannula 2.0 11/21/16 07:54 97.3 18 97.3 Intake and Output 11/21/16 07:00 Intake Total 330 ml Output Total 0 ml Balance 330 ml Intake Oral 330 ml Output Urine Total 0 ml Physical Exam Physical Exam No significant changes in cardiac exam Assessment Assessment The patient tolerated the aortogram with runoff as well as the angioplasty to the left leg. Today he appears to be dry therefore we will give him a bolus of fluid and hold BP meds. Problems Medical Problems: (1) Anemia Status: Acute (2) Chest pain Status: Acute (3) Elevated troponin Status: Acute (4) End stage renal disease Status: Acute Comment Review of Relevant I have reviewed the following items nicoel (where applicable) has been applied. Labs Laboratory Tests Test 11/19/16 17:07 11/19/16 21:12 11/20/16 04:45 11/20/16 07:26 Glucose (Fingerstick) 149mg/dL (70-99) 126mg/dL (70-99) 158mg/dL (70-99) White Blood Count 8.6x10^3/uL (4.0-11.0) Red Blood Count 3.54x10^6/uL (4.30-5.70) Hemoglobin 11.3g/dL (13.0-17.5) Hematocrit 34.6% (39.0-53.0) Mean Corpuscular Volume 98fL (79-100) Mean Corpuscular Hemoglobin 32pg (25-35) Mean Corpuscular Hemoglobin Concent 33g/dL (31-37) Red Cell Distribution Width 16.0% (11.5-14.5) Platelet Count 134x10^3/uL (140-400) Sodium Level 136mmol/L (136-145) Potassium Level 5.6mmol/L (3.5-5.1) Chloride Level 96mmol/L (98-107) Carbon Dioxide Level 28mmol/L (21-32) Anion Gap 12 (6-14) Blood Urea Nitrogen 55mg/dL (8-26) Creatinine 5.4mg/dL (0.7-1.3) Estimated GFR (Cockcroft-Gault) 10.6 Glucose Level 178mg/dL (70-99) Calcium Level 8.4mg/dL (8.5-10.1) Test 11/20/16 16:57 11/20/16 20:41 11/21/16 07:58 11/21/16 09:13 Glucose (Fingerstick) 134mg/dL (70-99) 96mg/dL (70-99) 50mg/dL (70-99) 78mg/dL (70-99) Test 11/21/16 11:05 Glucose (Fingerstick) 121mg/dL (70-99) Laboratory Tests Test 11/20/16 16:57 11/20/16 20:41 11/21/16 07:58 11/21/16 09:13 Glucose (Fingerstick) 134mg/dL (70-99) 96mg/dL (70-99) 50mg/dL (70-99) 78mg/dL (70-99) Test 11/21/16 11:05 Glucose (Fingerstick) 121mg/dL (70-99) Medications Current Medications Aspirin ([facility]Minds Aspirin) 325 mg 1X ONCE PO ; Start 11/16/16 at 14:15; Stop 11/16 at 14:28; Status DC Morphine Sulfate 4 mg PRN Q15MIN PRN IV/SQ PAIN GREATER THAN 3/10 Last administered on 11/16/16 16:26; Start 11/16/16 at 14:30; Stop 11/17/16 at 14:29 ; Status DC Ondansetron HCl (Zofran) 4 mg PRN Q8HRS PRN IV NAUSEA/VOMITING; Start 11/16/16 at 16:15; Stop 11/17/16 at 16:14; Status DC Morphine Sulfate 2 mg PRN Q2HR PRN IV PAIN Last administered on 11/17/16 03:51 ; Start 11/16/16 at 16:15; Stop 11/17/16 at 16:14; Status DC Acetaminophen (Tylenol) 650 mg PRN Q4HRS PRN PO FEVER; Start 11/16/16 at 16:15 ; Stop 11/17/16 at 16:14; Status DC Nitroglycerin (Nitrostat) 0.4 mg PRN Q5MIN PRN SL CHEST PAIN; Start 11/16/16 at 16:15; Stop 11/17/16 at 08:58; Status DC Albuterol/ Ipratropium (Duoneb) 3 ml RTQID NEB Last administered on 11/17/16 15:26; Start 11/16/16 at 20:00; Stop 11/17/16 at 19:59; Status DC Allopurinol (Zyloprim) 300 mg DAILY PO ; Start 11/17/16 at 09:00; Stop 11/17/16 at 09:00; Status DC Aspirin (Children'S Aspirin) 81 mg DAILY PO Last administered on 11/21/16 08: 06; Start 11/17/16 at 09:00 Calcium Acetate (Phoslo) 667 mg TIDWMEALS PO Last administered on 11/21/16 12: 13; Start 11/17/16 at 09:00 Clopidogrel Bisulfate (Plavix) 75 mg DAILY PO Last administered on 11/21/16 08 :06; Start 11/17/16 at 09:00 Digoxin (Lanoxin) 125 mcg DAILY PO Last administered on 11/20/16 17:36; Start 11/17/16 at 09:00 Famotidine (Pepcid) 20 mg Q48H PO Last administered on 11/19/16 20:42; Start 11/17/16 at 21:00 Vitamin B Complex/ Vitamin C (Mago-Mouna) 1 tab DAILY PO Last administered on 08:06; Start 11/17/16 at 09:00 Gabapentin (Neurontin) 100 mg BID PO Last administered on 11/21/16 08:05; Start 11/17/16 at 09:00 Nitroglycerin (Nitrostat) 0.4 mg PRN Q1HR PRN SL CHEST PAIN; Start 11/17/16 at 08:30 Oxycodone/ Acetaminophen (Percocet 7.5/ 325) 1 tab PRN TID PRN PO MODERATE - SEVERE PAIN Last administered on 11/20/16 22:30; Start 11/17/16 at 08:30 Polyethylene Glycol (miraLAX PACKET) 17 gm PRN DAILY PRN PO CONSTIPATION; Start 11/17/16 at 09:00 Ranolazine (Ranexa) 500 mg DAILY PO Last administered on 11/17/16 10:21; Start 11/17/16 at 09:00; Stop 11/18/16 at 12:55; Status DC Tamsulosin HCl (Flomax) 0.4 mg HS PO Last administered on 11/20/16 22:22; Start 11/17/16 at 21:00 Insulin Aspart Prota 70%/Aspart 30% (Novolog Mix 70-30) 20 units BIDWMEALS SQ Last administered on 11/17/16 17:24; Start 11/17/16 at 09:00; Stop 11/18/16 at 08:52; Status DC Allopurinol (Zyloprim) 100 mg DAILY PO Last administered on 11/21/16 08:06; Start 11/17/16 at 09:00 Isosorbide Mononitrate (Imdur) 30 mg DAILY PO Last administered on 11/18/16 13 :44; Start 11/17/16 at 09:00; Stop 11/19/16 at 09:01; Status DC Alprazolam (Xanax) 0.5 mg PRN BID PRN PO ANXIETY / AGITATION Last administered on 11/20/16 22:29; Start 11/17/16 at 23:15 Dextrose (Dextrose 50%-Water Syringe) 25 gm 1X ONCE IV Last administered on 06:28; Start 11/18/16 at 06:30; Stop 11/18/16 at 06:31; Status DC Dextrose 25 gm 25 gm PRN Q15MIN PRN IV LOW BLOOD SUGAR; Start 11/18/16 at 06:30 Sodium Chloride 1,000 ml @ 1,000 mls/hr Q1H PRN IV hypotension; Start 11/18/16 at 07:32; Stop 11/18/16 at 13:31; Status DC Sodium Chloride (Iv Sodium Chloride 0.9% 1000ml Bag) 1,000 ml @ 400 mls/hr Q2H30M PRN IV PATENCY; Start 11/18/16 at 07:32; Stop 11/18/16 at 19:31; Status DC Info (PHARMACY MONITORING -- do not chart) 1 each PRN DAILY PRN MC SEE COMMENTS ; Start 11/18/16 at 07:45 Lidocaine HCl (Xylocaine-Mpf 1% Vial) 2 ml 1X ONCE SQ Last administered on 08:27; Start 11/18/16 at 07:45; Stop 11/18/16 at 07:46; Status DC Insulin Aspart Prota 70%/Aspart 30% (Novolog Mix 70-30) 12 units BIDWMEALS SQ Last administered on 11/20/16 17:40; Start 11/18/16 at 17:00; Stop 11/21/16 at 11:52; Status DC Ranolazine (Ranexa) 1,000 mg BID PO Last administered on 11/20/16 22:22; Start 11/18/16 at 21:00 Diphenhydramine HCl 25 mg 25 mg PRN QHS PRN PO INSOMNIA Last administered on 02:08; Start 11/19/16 at 15:45 Sodium Chloride 1,000 ml @ 1,000 mls/hr Q1H PRN IV hypotension; Start 11/20/16 at 08:29; Stop 11/20/16 at 14:28; Status DC Albumin Human 200 ml @ 200 mls/hr 1X PRN PRN IV Hypotension; Start 11/20/16 at 08:30; Stop 11/20/16 at 14:29; Status DC Sodium Chloride (Iv Sodium Chloride 0.9% 1000ml Bag) 1,000 ml @ 400 mls/hr Q2H30M PRN IV PATENCY; Start 11/20/16 at 08:29; Stop 11/20/16 at 20:28; Status DC Info (PHARMACY MONITORING -- do not chart) 1 each PRN DAILY PRN MC SEE COMMENTS ; Start 11/20/16 at 08:30; Status UNV Iodixanol (Visipaque 320) 50 ml STK-MED ONCE .ROUTE ; Start 11/20/16 at 14:03; Stop 11/20/16 at 14:04; Status DC Iohexol (Omnipaque 300 Mg/ml) 100 ml STK-MED ONCE .ROUTE ; Start 11/20/16 at 14: 03; Stop 11/20/16 at 14:04; Status DC Lidocaine/Sodium Bicarbonate 20 ml 20 ml STK-MED ONCE IJ ; Start 11/20/16 at 14: 03; Stop 11/20/16 at 14:04; Status DC Heparin Sodium/ Sodium Chloride 1,500 ml @ As Directed STK-MED ONCE .ROUTE ; Start 11/20/16 at 14:03; Stop 11/20/16 at 14:04; Status DC Iodixanol (Visipaque 320) 100 ml STK-MED ONCE .ROUTE ; Start 11/20/16 at 14:03; Stop 11/20/16 at 14:04; Status DC Midazolam HCl (Versed) 5 mg STK-MED ONCE .ROUTE ; Start 11/20/16 at 14:16; Stop 11/20/16 at 14:17; Status DC Fentanyl Citrate (Fentanyl 5ml Vial) 250 mcg STK-MED ONCE .ROUTE ; Start at 14:16; Stop 11/20/16 at 14:17; Status DC Heparin Sodium (Porcine) (Heparin Sodium) 10,000 unit STK-MED ONCE .ROUTE ; Start 11/20/16 at 14:17; Stop 11/20/16 at 14:18; Status DC Heparin Sodium/ Sodium Chloride 1,000 unit 1X ONCE IART Last administered on 15:41; Start 11/20/16 at 14:30; Stop 11/20/16 at 14:31; Status DC Lidocaine/Sodium Bicarbonate (Buffered Lidocaine 1%) 20 ml 1X ONCE IJ Last administered on 11/20/16 15:40; Start 11/20/16 at 14:30; Stop 11/20/16 at 14:31 ; Status DC Midazolam HCl (Versed) 5 mg 1X ONCE IV Last administered on 11/20/16 15:40; Start 11/20/16 at 14:30; Stop 11/20/16 at 14:31; Status DC Fentanyl Citrate (Fentanyl 5ml Vial) 5 mcg 1X ONCE IV Last administered on 15:41; Start 11/20/16 at 14:30; Stop 11/20/16 at 14:31; Status DC Iohexol (Omnipaque 300 Mg/ml) 100 ml 1X ONCE IART Last administered on 15:42; Start 11/20/16 at 14:30; Stop 11/20/16 at 14:31; Status DC Iodixanol (Visipaque 320) 100 ml 1X ONCE IART Last administered on 11/20/16 15:43; Start 11/20/16 at 14:30; Stop 11/20/16 at 14:31; Status DC Info (Do NOT chart on this entry -- for MONITORING) 1 each PRN DAILY PRN MC SEE COMMENTS; Start 11/20/16 at 14:30; Stop 11/22/16 at 14:29 Heparin Sodium (Porcine) (Heparin Sodium) 5,000 unit 1X ONCE IV Last administered on 11/20/16 15:44; Start 11/20/16 at 15:15; Stop 11/20/16 at 15:16 ; Status DC Insulin Aspart Prota 70%/Aspart 30% 8 units 8 units BIDWMEALS SQ ; Start at 17:00 Sodium Chloride 250 ml @ 250 mls/hr 1X ONCE IV Last administered on 12:16; Start 11/21/16 at 12:00; Stop 11/21/16 at 12:59; Status DC Albumin Human (Plasmanate) 500 ml @ 125 mls/hr 1X ONCE IV ; Start 11/21/16 at 15:00; Stop 11/21/16 at 18:59 Active Scripts Active Reported Humulin 70-30 Vial (Hum Insulin Nph/Reg Insulin Hm) 100 Unit/1 Ml Vial 20 Unit SQ BIDWMEALS Gabapentin 100 Mg Capsule 100 Mg PO BID Ranexa (Ranolazine) 500 Mg Tab.er.12h 1 Tab PO DAILY Phoslo (Calcium Acetate) 667 Mg Capsule 667 Mg PO TIDWMEALS Polyethylene Glycol 3350 255 Gm Powder 17 Gm PO DAILY PRN Anoro Ellipta 62.5-25 Mcg Inh (Umeclidinium Brm/Vilanterol Tr) 1 Each Disk.w.dev 1 Each IH DAILY Clopidogrel (Clopidogrel Bisulfate) 75 Mg Tablet 1 Tab PO DAILY Percocet 7.5-325 Mg Tablet (Oxycodone/Acetaminophen) 1 Each Tablet 1 Tab PO TID PRN Dialyvite 800 Tablet (Folic Acid/Vitamin B Comp W-C) 0.8 Mg Tablet 0.8 Mg PO DAILY NITROGLYCERIN SubLingual (Nitroglycerin) 0.4 Mg Tab.subl 0.4 Mg SL PRN Allopurinol 300 Mg Tablet 300 Mg PO DAILY Pepcid (Famotidine) 20 Mg Tablet 20 Mg PO QHS Lanoxin (Digoxin) 125 Mcg Tablet 125 Mcg PO DAILY Flomax (Tamsulosin Hcl) 0.4 Mg Cap.er.24h 0.4 Mg PO HS Aspirin 81 Mg Tab.chew 81 Mg PO DAILY Vitals/I & O Vital Sign - Last 24 Hours 11/20/16 11/20/16 11/20/16 11/20/16 15:36 15:41 16:11 16:15 Pulse 69 67 Resp 16 16 B/P 104/48 Pulse Ox 95 97 100 89 O2 Delivery Nasal Cannula Room Air Room Air Room Air O2 Flow Rate 2.0 2.0 11/20/16 11/20/16 11/20/16 11/20/16 16:30 16:45 17:00 17:30 Pulse 66 65 70 63 B/P 101/39 104/39 111/36 128/107 Pulse Ox 92 100 100 100 O2 Delivery Room Air Nasal Cannula Nasal Cannula Nasal Cannula O2 Flow Rate 2.0 2.0 2.0 11/20/16 11/20/16 11/20/16 11/20/16 17:36 18:00 19:00 20:00 Temp 98.3 98.3 Pulse 69 70 64 Resp 17 B/P 108/58 120/40 111/46 Pulse Ox 100 100 O2 Delivery Nasal Cannula Nasal Cannula Room Air O2 Flow Rate 2.0 2.0 11/20/16 11/20/16 11/20/16 11/20/16 22:22 22:30 23:30 23:55 Temp 98.4 98.4 Pulse 64 68 Resp 18 20 16 B/P 111/46 98/44 Pulse Ox 100 92 92 O2 Delivery Room Air Nasal Cannula Nasal Cannula O2 Flow Rate 2.0 2.5 2.5 11/21/16 11/21/16 11/21/16 11/21/16 03:16 07:54 08:00 09:00 Temp 97.8 97.3 97.8 97.3 Pulse 62 64 59 Resp 17 18 B/P 95/52 96/45 96/45 Pulse Ox 94 94 O2 Delivery Room Air Room Air Room Air 11/21/16 11/21/16 11/21/16 11/21/16 09:00 10:54 10:59 15:15 Pulse 59 61 60 60 B/P 96/45 101/69 92/39 98/53 Pulse Ox 99 O2 Delivery Room Air Room Air Nasal Cannula O2 Flow Rate 2.0 Intake and Output 11/20/16 11/20/16 11/21/16 15:00 23:00 07:00 Intake Total 0 ml 330 ml Output Total 0 ml 0 ml Balance 0 ml 330 ml LEXI ALTAMIRANO MD Nov 21, 2016 15:23
[2016-11-21] MEDS: ALPRAZOLAM 0.5 MG TABLET. PO PRN (22:09)
[2016-11-21] MEDS: FAMOTIDINE 20 MG TABLET. PO SCH (22:09)
[2016-11-21] MEDS: TAMSULOSIN 0.4 MG CAP.ER.24H. PO SCH (22:10)
[2016-11-21] MEDS: OXYCODONE/APAP 7.5/325 TABLET. PO PRN (22:10)
[2016-11-22 03:30] VITALS: BP 94/27
[2016-11-22 07:48] VITALS: BP 117/44
[2016-11-22] MEDS: INSULN ASP PRT/INSULIN ASPART 300 UNITS/3 ML INSULN.PEN. SQ SCH (08:00)
[2016-11-22] MEDS: RANOLAZINE 500 MG TAB.ER.12H PO SCH ×2 (09:00→20:48)
[2016-11-22] MEDS: DIGOXIN 125 MCG TABLET. PO SCH (09:00)
[2016-11-22] MEDS: ASPIRIN CHEWABLE 81 MG TABLET. PO SCH (09:08)
[2016-11-22] MEDS: GABAPENTIN 100 MG CAPSULE. PO SCH (09:08)
[2016-11-22] MEDS: CALCIUM ACETATE 667 MG CAPSULE PO SCH ×3 (09:08→17:45)
[2016-11-22] MEDS: CLOPIDOGREL BISULFATE 75 MG TABLET PO SCH (09:08)
[2016-11-22] MEDS: ALLOPURINOL 100 MG TABLET. PO SCH (09:08)
[2016-11-22] MEDS: FOLIC/VIT B COMP W-C (RENAL) TABLET. PO SCH (09:08)
--- NOTE | 2016-11-22 09:19 | PDOC ---
Provider Note Provider Note still weak, sleepy, no new sxs- bp ok, will dc insulin now re low readings, may not even need it- will hold tyler re drowsiness and poor memory for now, resume daily only if sxs recur SANDEEP YANG MD Nov 22, 2016 09:19
[2016-11-22 10:18] VITALS: BP 111/43
[2016-11-22 14:52] VITALS: BP 105/60
--- NOTE | 2016-11-22 15:58 | PDOC ---
PROGRESS NOTES Subjective Subjective Patient feels better today. Blood pressures doing better. Objective Objective Vital Signs Date Time Temp Pulse Resp B/P Pulse Ox O2 Delivery O2 Flow Rate FiO2 11/22/16 14:52 98.0 67 20 105/60 95 Nasal Cannula 2.0 98.0 Intake and Output 11/22/16 07:00 Intake Total 1560 ml Balance 1560 ml Intake Oral 1060 ml IV Total 500 ml Physical Exam Physical Exam No significant change cardiac exam Assessment Assessment Patient is improving. Home soon. Problems Medical Problems: (1) Anemia Status: Acute (2) Chest pain Status: Acute (3) Elevated troponin Status: Acute (4) End stage renal disease Status: Acute Comment Review of Relevant I have reviewed the following items nicole (where applicable) has been applied. Labs Laboratory Tests Test 11/20/16 16:57 11/20/16 20:41 11/21/16 07:58 11/21/16 09:13 Glucose (Fingerstick) 134mg/dL (70-99) 96mg/dL (70-99) 50mg/dL (70-99) 78mg/dL (70-99) Test 11/21/16 11:05 11/21/16 17:07 11/21/16 20:59 11/21/16 21:52 Glucose (Fingerstick) 121mg/dL (70-99) 169mg/dL (70-99) 63mg/dL (70-99) 78mg/dL (70-99) Test 11/22/16 07:52 11/22/16 10:22 Glucose (Fingerstick) 63mg/dL (70-99) 111mg/dL (70-99) Laboratory Tests Test 11/21/16 17:07 11/21/16 20:59 11/21/16 21:52 11/22/16 07:52 Glucose (Fingerstick) 169mg/dL (70-99) 63mg/dL (70-99) 78mg/dL (70-99) 63mg/dL (70-99) Test 11/22/16 10:22 Glucose (Fingerstick) 111mg/dL (70-99) Medications Current Medications Aspirin (Ant Aspirin) 325 mg 1X ONCE PO ; Start 11/16/16 at 14:15; Stop 11/16 at 14:28; Status DC Morphine Sulfate 4 mg PRN Q15MIN PRN IV/SQ PAIN GREATER THAN 3/10 Last administered on 11/16/16 16:26; Start 11/16/16 at 14:30; Stop 11/17/16 at 14:29 ; Status DC Ondansetron HCl (Zofran) 4 mg PRN Q8HRS PRN IV NAUSEA/VOMITING; Start 11/16/16 at 16:15; Stop 11/17/16 at 16:14; Status DC Morphine Sulfate 2 mg PRN Q2HR PRN IV PAIN Last administered on 11/17/16 03:51 ; Start 11/16/16 at 16:15; Stop 11/17/16 at 16:14; Status DC Acetaminophen (Tylenol) 650 mg PRN Q4HRS PRN PO FEVER; Start 11/16/16 at 16:15 ; Stop 11/17/16 at 16:14; Status DC Nitroglycerin (Nitrostat) 0.4 mg PRN Q5MIN PRN SL CHEST PAIN; Start 11/16/16 at 16:15; Stop 11/17/16 at 08:58; Status DC Albuterol/ Ipratropium (Duoneb) 3 ml RTQID NEB Last administered on 11/17/16 15:26; Start 11/16/16 at 20:00; Stop 11/17/16 at 19:59; Status DC Allopurinol (Zyloprim) 300 mg DAILY PO ; Start 11/17/16 at 09:00; Stop 11/17/16 at 09:00; Status DC Aspirin (Children'S Aspirin) 81 mg DAILY PO Last administered on 11/22/16 09: 08; Start 11/17/16 at 09:00 Calcium Acetate (Phoslo) 667 mg TIDWMEALS PO Last administered on 11/22/16 12: 25; Start 11/17/16 at 09:00 Clopidogrel Bisulfate (Plavix) 75 mg DAILY PO Last administered on 11/22/16 09 :08; Start 11/17/16 at 09:00 Digoxin (Lanoxin) 125 mcg DAILY PO Last administered on 11/20/16 17:36; Start 11/17/16 at 09:00 Famotidine (Pepcid) 20 mg Q48H PO Last administered on 11/21/16 22:09; Start 11/17/16 at 21:00 Vitamin B Complex/ Vitamin C (Mago-Mouna) 1 tab DAILY PO Last administered on 09:08; Start 11/17/16 at 09:00 Gabapentin (Neurontin) 100 mg BID PO Last administered on 11/22/16 09:08; Start 11/17/16 at 09:00; Stop 11/22/16 at 09:18; Status DC Nitroglycerin (Nitrostat) 0.4 mg PRN Q1HR PRN SL CHEST PAIN; Start 11/17/16 at 08:30 Oxycodone/ Acetaminophen (Percocet 7.5/ 325) 1 tab PRN TID PRN PO MODERATE - SEVERE PAIN Last administered on 11/21/16 22:10; Start 11/17/16 at 08:30 Polyethylene Glycol (miraLAX PACKET) 17 gm PRN DAILY PRN PO CONSTIPATION; Start 11/17/16 at 09:00 Ranolazine (Ranexa) 500 mg DAILY PO Last administered on 11/17/16 10:21; Start 11/17/16 at 09:00; Stop 11/18/16 at 12:55; Status DC Tamsulosin HCl (Flomax) 0.4 mg HS PO Last administered on 11/21/16 22:10; Start 11/17/16 at 21:00 Insulin Aspart Prota 70%/Aspart 30% (Novolog Mix 70-30) 20 units BIDWMEALS SQ Last administered on 11/17/16 17:24; Start 11/17/16 at 09:00; Stop 11/18/16 at 08:52; Status DC Allopurinol (Zyloprim) 100 mg DAILY PO Last administered on 11/22/16 09:08; Start 11/17/16 at 09:00 Isosorbide Mononitrate (Imdur) 30 mg DAILY PO Last administered on 11/18/16 13 :44; Start 11/17/16 at 09:00; Stop 11/19/16 at 09:01; Status DC Alprazolam (Xanax) 0.5 mg PRN BID PRN PO ANXIETY / AGITATION Last administered on 11/21/16 22:09; Start 11/17/16 at 23:15 Dextrose (Dextrose 50%-Water Syringe) 25 gm 1X ONCE IV Last administered on 06:28; Start 11/18/16 at 06:30; Stop 11/18/16 at 06:31; Status DC Dextrose 25 gm 25 gm PRN Q15MIN PRN IV LOW BLOOD SUGAR; Start 11/18/16 at 06:30 Sodium Chloride 1,000 ml @ 1,000 mls/hr Q1H PRN IV hypotension; Start 11/18/16 at 07:32; Stop 11/18/16 at 13:31; Status DC Sodium Chloride (Iv Sodium Chloride 0.9% 1000ml Bag) 1,000 ml @ 400 mls/hr Q2H30M PRN IV PATENCY; Start 11/18/16 at 07:32; Stop 11/18/16 at 19:31; Status DC Info (PHARMACY MONITORING -- do not chart) 1 each PRN DAILY PRN MC SEE COMMENTS ; Start 11/18/16 at 07:45 Lidocaine HCl (Xylocaine-Mpf 1% Vial) 2 ml 1X ONCE SQ Last administered on 08:27; Start 11/18/16 at 07:45; Stop 11/18/16 at 07:46; Status DC Insulin Aspart Prota 70%/Aspart 30% (Novolog Mix 70-30) 12 units BIDWMEALS SQ Last administered on 11/20/16 17:40; Start 11/18/16 at 17:00; Stop 11/21/16 at 11:52; Status DC Ranolazine (Ranexa) 1,000 mg BID PO Last administered on 11/20/16 22:22; Start 11/18/16 at 21:00 Diphenhydramine HCl 25 mg 25 mg PRN QHS PRN PO INSOMNIA Last administered on 02:08; Start 11/19/16 at 15:45 Sodium Chloride 1,000 ml @ 1,000 mls/hr Q1H PRN IV hypotension; Start 11/20/16 at 08:29; Stop 11/20/16 at 14:28; Status DC Albumin Human 200 ml @ 200 mls/hr 1X PRN PRN IV Hypotension; Start 11/20/16 at 08:30; Stop 11/20/16 at 14:29; Status DC Sodium Chloride (Iv Sodium Chloride 0.9% 1000ml Bag) 1,000 ml @ 400 mls/hr Q2H30M PRN IV PATENCY; Start 11/20/16 at 08:29; Stop 11/20/16 at 20:28; Status DC Info (PHARMACY MONITORING -- do not chart) 1 each PRN DAILY PRN MC SEE COMMENTS ; Start 11/20/16 at 08:30; Status UNV Iodixanol (Visipaque 320) 50 ml STK-MED ONCE .ROUTE ; Start 11/20/16 at 14:03; Stop 11/20/16 at 14:04; Status DC Iohexol (Omnipaque 300 Mg/ml) 100 ml STK-MED ONCE .ROUTE ; Start 11/20/16 at 14: 03; Stop 11/20/16 at 14:04; Status DC Lidocaine/Sodium Bicarbonate 20 ml 20 ml STK-MED ONCE IJ ; Start 11/20/16 at 14: 03; Stop 11/20/16 at 14:04; Status DC Heparin Sodium/ Sodium Chloride 1,500 ml @ As Directed STK-MED ONCE .ROUTE ; Start 11/20/16 at 14:03; Stop 11/20/16 at 14:04; Status DC Iodixanol (Visipaque 320) 100 ml STK-MED ONCE .ROUTE ; Start 11/20/16 at 14:03; Stop 11/20/16 at 14:04; Status DC Midazolam HCl (Versed) 5 mg STK-MED ONCE .ROUTE ; Start 11/20/16 at 14:16; Stop 11/20/16 at 14:17; Status DC Fentanyl Citrate (Fentanyl 5ml Vial) 250 mcg STK-MED ONCE .ROUTE ; Start at 14:16; Stop 11/20/16 at 14:17; Status DC Heparin Sodium (Porcine) (Heparin Sodium) 10,000 unit STK-MED ONCE .ROUTE ; Start 11/20/16 at 14:17; Stop 11/20/16 at 14:18; Status DC Heparin Sodium/ Sodium Chloride 1,000 unit 1X ONCE IART Last administered on t 15:41; Start 11/20/16 at 14:30; Stop 11/20/16 at 14:31; Status DC Lidocaine/Sodium Bicarbonate (Buffered Lidocaine 1%) 20 ml 1X ONCE IJ Last administered on 11/20/16t 15:40; Start 11/20/16 at 14:30; Stop 11/20/16 at 14:31 ; Status DC Midazolam HCl (Versed) 5 mg 1X ONCE IV Last administered on 11/20/16 15:40; Start 11/20/16 at 14:30; Stop 11/20/16 at 14:31; Status DC Fentanyl Citrate (Fentanyl 5ml Vial) 5 mcg 1X ONCE IV Last administered on 15:41; Start 11/20/16 at 14:30; Stop 11/20/16 at 14:31; Status DC Iohexol (Omnipaque 300 Mg/ml) 100 ml 1X ONCE IART Last administered on 15:42; Start 11/20/16 at 14:30; Stop 11/20/16 at 14:31; Status DC Iodixanol (Visipaque 320) 100 ml 1X ONCE IART Last administered on 11/20/16 15:43; Start 11/20/16 at 14:30; Stop 11/20/16 at 14:31; Status DC Info (Do NOT chart on this entry -- for MONITORING) 1 each PRN DAILY PRN MC SEE COMMENTS; Start 11/20/16 at 14:30; Stop 11/22/16 at 14:29; Status DC Heparin Sodium (Porcine) (Heparin Sodium) 5,000 unit 1X ONCE IV Last administered on 11/20/16 15:44; Start 11/20/16 at 15:15; Stop 11/20/16 at 15:16 ; Status DC Insulin Aspart Prota 70%/Aspart 30% 8 units 8 units BIDWMEALS SQ Last administered on 11/21/16 17:17; Start 11/21/16 at 17:00; Stop 11/22/16 at 09:12 ; Status DC Sodium Chloride 250 ml @ 250 mls/hr 1X ONCE IV Last administered on 12:16; Start 11/21/16 at 12:00; Stop 11/21/16 at 12:59; Status DC Albumin Human (Plasmanate) 500 ml @ 125 mls/hr 1X ONCE IV Last administered on 11/21/16 15:29; Start 11/21/16 at 15:00; Stop 11/21/16 at 18:59; Status DC Active Scripts Active Reported Humulin 70-30 Vial (Hum Insulin Nph/Reg Insulin Hm) 100 Unit/1 Ml Vial 20 Unit SQ BIDWMEALS Gabapentin 100 Mg Capsule 100 Mg PO BID Ranexa (Ranolazine) 500 Mg Tab.er.12h 1 Tab PO DAILY Phoslo (Calcium Acetate) 667 Mg Capsule 667 Mg PO TIDWMEALS Polyethylene Glycol 3350 255 Gm Powder 17 Gm PO DAILY PRN Anoro Ellipta 62.5-25 Mcg Inh (Umeclidinium Brm/Vilanterol Tr) 1 Each Disk.w.dev 1 Each IH DAILY Clopidogrel (Clopidogrel Bisulfate) 75 Mg Tablet 1 Tab PO DAILY Percocet 7.5-325 Mg Tablet (Oxycodone/Acetaminophen) 1 Each Tablet 1 Tab PO TID PRN Dialyvite 800 Tablet (Folic Acid/Vitamin B Comp W-C) 0.8 Mg Tablet 0.8 Mg PO DAILY NITROGLYCERIN SubLingual (Nitroglycerin) 0.4 Mg Tab.subl 0.4 Mg SL PRN Allopurinol 300 Mg Tablet 300 Mg PO DAILY Pepcid (Famotidine) 20 Mg Tablet 20 Mg PO QHS Lanoxin (Digoxin) 125 Mcg Tablet 125 Mcg PO DAILY Flomax (Tamsulosin Hcl) 0.4 Mg Cap.er.24h 0.4 Mg PO HS Aspirin 81 Mg Tab.chew 81 Mg PO DAILY Vitals/I & O Vital Sign - Last 24 Hours 11/21/16 11/21/16 11/21/16 11/21/16 19:30 20:00 22:10 23:00 Temp 97.1 97.4 97.1 97.4 Pulse 60 63 Resp 18 18 B/P 97/44 105/52 Pulse Ox 100 100 100 O2 Delivery Nasal Cannula Room Air Room Air Nasal Cannula O2 Flow Rate 2.0 2.0 2.0 11/21/16 11/22/16 11/22/16 11/22/16 23:10 03:30 07:48 08:00 Temp 97.6 97.1 97.6 97.1 Pulse 65 60 Resp 16 20 19 B/P 94/27 117/44 Pulse Ox 100 94 95 O2 Delivery Room Air Nasal Cannula Nasal Cannula Nasal Cannula O2 Flow Rate 2.0 2.0 2.0 11/22/16 11/22/16 11/22/16 11/22/16 09:00 09:00 10:18 14:52 Temp 97.9 98.0 97.9 98.0 Pulse 60 60 64 67 Resp 19 20 B/P 117/44 117/44 111/43 105/60 Pulse Ox 90 95 O2 Delivery Room Air Nasal Cannula O2 Flow Rate 2.0 Intake and Output 11/21/16 11/21/16 11/22/16 15:00 23:00 07:00 Intake Total 180 ml 860 ml 520 ml Balance 180 ml 860 ml 520 ml LEXI ALTAMIRANO MD Nov 22, 2016 15:58
[2016-11-22 19:10] VITALS: BP 119/41
[2016-11-22] MEDS: TAMSULOSIN 0.4 MG CAP.ER.24H. PO SCH (20:48)
[2016-11-22 23:27] VITALS: BP 117/68
[2016-11-22] MEDS: OXYCODONE/APAP 7.5/325 TABLET. PO PRN (23:40)
[2016-11-23] MEDS ORDERED: PARO20TA55 PO (00:48)
[2016-11-23] MEDS ORDERED: PRAZ5CAP2 PO (00:48)
[2016-11-23 03:32] VITALS: BP 118/82
[2016-11-23 07:00] VITALS: BP 114/53
[2016-11-23] MEDS ORDERED: IV NORMAL SALINE 1000ML BAG 1,000 ML IV PRN ×2 (07:59)
[2016-11-23] MEDS ORDERED: LABETALOL 20 MG/4 ML DISP.SYRIN. IVP PRN (08:00)
[2016-11-23] MEDS ORDERED: DIPHENHYDRAMINE 50 MG/ML VIAL. IV PRN ×2 (08:00)
[2016-11-23] MEDS ORDERED: ACETAMINOPHEN 500 MG TABLET PO PRN (08:00)
[2016-11-23] MEDS ORDERED: ALBUMIN HUMAN 25% 200 ML IV PRN (08:00)
[2016-11-23] MEDS ORDERED: CLONIDINE HCL 0.1 MG TABLET PO PRN (08:00)
[2016-11-23] MEDS: CALCIUM ACETATE 667 MG CAPSULE PO SCH ×3 (08:00→17:00)
[2016-11-23] MEDS ORDERED: DIALYSIS PATIENT. MC PRN (08:00)
[2016-11-23] MEDS ORDERED: MIDODRINE 5 MG TABLET PO ONE (08:00)
--- NOTE | 2016-11-23 08:27 | DISCH ---
DISCHARGE INSTRUCTIONS Condition on Discharge Condition on Discharge: Stable Activity After Discharge Activity Instructions for Disc: No restrictions Diet after Discharge Diet after Discharge: Diabetic No Calorie Level Follow-Up Follow up with: as scheduled SANDEEP YANG MD Nov 23, 2016 08:27
--- NOTE | 2016-11-23 08:32 | PDOC ---
Provider Note Provider Note [id number] SANDEEP YANG MD Nov 23, 2016 08:31
[2016-11-23] MEDS: RANOLAZINE 500 MG TAB.ER.12H PO SCH (09:00)
[2016-11-23] MEDS: FOLIC/VIT B COMP W-C (RENAL) TABLET. PO SCH (09:00)
[2016-11-23] MEDS: CLOPIDOGREL BISULFATE 75 MG TABLET PO SCH (09:00)
[2016-11-23] MEDS: DIGOXIN 125 MCG TABLET. PO SCH (09:00)
[2016-11-23] MEDS: ASPIRIN CHEWABLE 81 MG TABLET. PO SCH (09:00)
[2016-11-23] MEDS: ALLOPURINOL 100 MG TABLET. PO SCH (09:00)
[2016-11-23 11:24] VITALS: BP 98/36
[2016-11-23] MEDS ORDERED: LIDOCAINE 1% PF 2 ML VIAL. ID STA (14:04)
--- NOTE | 2016-11-23 14:40 | PDOC ---
SUBJECTIVE ROS ESRD Doing well. About to start HD but waiting for EMLA cream CVS: no Orthopnea, no CP RESP: no SOB, no MEJIA GI: no Nausea, no Vomiting : no Dysuria, no Urgency OBJECTIVE Vital Signs Vital Signs Date Time Temp Pulse Resp B/P Pulse Ox O2 Delivery O2 Flow Rate FiO2 11/23/16 11:24 97.3 61 18 98/36 100 Nasal Cannula 97.3 11/23/16 08:00 2.0 I & 0 Intake and Output 11/23/16 07:00 Intake Total 740 ml Balance 740 ml Intake Oral 740 ml PHYSICAL EXAM Physical Exam GEN: Awake, Oriented x 3, In no distress EYES: Vision Unchanged, Conjunctiva Normal EN: No EN Drainage, Mucous Membranes moist NECK: no JVD, no JVP, Supple, no Thyromegaly CVS: S1S2, no Murmur, No Gallop, No Rub,no Edema RESP: no Rales, no Rhonchi,no Acc. Muscle Use GI: BS + ve, NO Bruit, Non Tender, Non Distended : no CVA tenderness, no Suprapubic Tenderness DIAGNOSIS/ASSESSMENT Assessment & Plan ESRD: Seen on HD: Vitals on HD: 128/48 60 afeb 16 Dialysis as below F 180 NR 3.5 Hrs 2 K 2.5 Ca 140 Na 35 HC03 Qb 350 + Qd 500+ Heparin 0 Units Uf to dry weight as tolerated May give 25-50 gms of 25% Albumin if needed to maintain Hemodynamic stability Treatment plan reviewed and discussed with night clerk Problems: COMMENT/RELEVANT DATA Meds Current Medications Medications (Trade) Dose Ordered Sig/Andrew Start Time Stop Time Status Last Admin Dose Admin Acetaminophen (Tylenol) 500 mg 1X PRN PRN 11/23/16 08:00 11/24/16 07:59 Albumin Human (Albuminar) 200 ml @ 200 mls/hr 1X PRN PRN 11/23/16 08:00 11/23/16 13:59 DC Albuterol/ Ipratropium (Duoneb) 3 ml RTQID 11/16/16 20:00 11/17/16 19:59 DC 11/17/16 15:26 3 ML Allopurinol (Zyloprim) 100 mg DAILY 11/17/16 09:00 11/22/16 09:08 100 MG Alprazolam (Xanax) 0.5 mg PRN BID PRN 11/17/16 23:15 11/21/16 22:09 0.5 MG Aspirin (Ant Aspirin) 325 mg 1X ONCE 11/16/16 14:15 11/16/16 14:28 DC Aspirin (Children'S Aspirin) 81 mg DAILY 11/17/16 09:00 11/22/16 09:08 81 MG Calcium Acetate (Phoslo) 667 mg TIDWMEALS 11/17/16 09:00 11/22/16 17:45 667 MG Clonidine HCl 0.1 mg 0.1 mg 1X PRN PRN 11/23/16 08:00 11/24/16 07:59 Clopidogrel Bisulfate (Plavix) 75 mg DAILY 11/17/16 09:00 11/22/16 09:08 75 MG Dextrose (Dextrose 50%-Water Syringe) 25 gm PRN Q15MIN PRN 11/18/16 06:30 Digoxin (Lanoxin) 125 mcg DAILY 11/17/16 09:00 11/20/16 17:36 125 MCG Diphenhydramine HCl (Benadryl) 25 mg 1X PRN PRN 11/23/16 08:00 11/24/16 07:59 Famotidine (Pepcid) 20 mg Q48H 11/17/16 21:00 11/21/16 22:09 20 MG Fentanyl Citrate (Fentanyl 5ml Vial) 5 mcg 1X ONCE 11/20/16 14:30 11/20/16 14:31 DC 11/20/16 15:41 50 MCG Gabapentin (Neurontin) 100 mg BID 11/17/16 09:00 11/22/16 09:18 DC 11/22/16 09:08 100 MG Heparin Sodium (Porcine) (Heparin Sodium) 5,000 unit 1X ONCE 11/20/16 15:15 11/20/16 15:16 DC 11/20/16 15:44 5,000 UNIT Heparin Sodium/ Sodium Chloride 1,000 unit 1X ONCE 11/20/16 14:30 11/20/16 14:31 DC 11/20/16 15:41 1,000 UNIT Info (Do NOT chart on this entry -- for MONITORING) 1 each PRN DAILY PRN 11/20/16 14:30 11/22/16 14:29 DC Info (PHARMACY MONITORING -- do not chart) 1 each PRN DAILY PRN 11/23/16 08:00 UNV Insulin Aspart Prota 70%/Aspart 30% (Novolog Mix 70-30) 12 units BIDWMEALS 11/18/16 17:00 11/21/16 11:52 DC 11/20/16 17:40 12 UNITS Insulin Aspart Prota 70%/Aspart 30% 8 units 8 units BIDWMEALS 11/21/16 17:00 11/22/16 09:12 DC 11/21/16 17:17 8 UNITS Iodixanol (Visipaque 320) 100 ml 1X ONCE 11/20/16 14:30 11/20/16 14:31 DC 11/20/16 15:43 41 ML Iohexol (Omnipaque 300 Mg/ml) 100 ml 1X ONCE 11/20/16 14:30 11/20/16 14:31 DC 11/20/16 15:42 55 ML Isosorbide Mononitrate (Imdur) 30 mg DAILY 11/17/16 09:00 11/19/16 09:01 DC 11/18/16 13:44 30 MG Labetalol HCl (Normodyne) 10 mg PRN Q1HR PRN 11/23/16 08:00 11/24/16 07:59 Lidocaine HCl (Xylocaine-Mpf 1% Vial) 0.5 ml 1X STAT 11/23/16 14:04 11/23/16 14:18 DC Lidocaine/Sodium Bicarbonate (Buffered Lidocaine 1%) 20 ml 1X ONCE 11/20/16 14:30 11/20/16 14:31 DC 11/20/16 15:40 20 ML Midazolam HCl (Versed) 5 mg 1X ONCE 11/20/16 14:30 11/20/16 14:31 DC 11/20/16 15:40 1 MG Midodrine (Proamatine) 5 mg 1X ONCE 11/23/16 08:00 11/23/16 08:06 DC Morphine Sulfate 2 mg PRN Q2HR PRN 11/16/16 16:15 11/17/16 16:14 DC 11/17/16 03:51 2 MG Nitroglycerin (Nitrostat) 0.4 mg PRN Q1HR PRN 11/17/16 08:30 Ondansetron HCl (Zofran) 4 mg PRN Q8HRS PRN 11/16/16 16:15 11/17/16 16:14 DC Oxycodone/ Acetaminophen (Percocet 7.5/ 325) 1 tab PRN TID PRN 11/17/16 08:30 11/22/16 23:40 1 TAB Polyethylene Glycol (miraLAX PACKET) 17 gm PRN DAILY PRN 11/17/16 09:00 Ranolazine (Ranexa) 1,000 mg BID 11/18/16 21:00 11/22/16 20:48 1,000 MG Sodium Chloride (Iv Sodium Chloride 0.9% 1000ml Bag) 1,000 ml @ 400 mls/hr Q2H30M PRN 11/23/16 07:59 11/23/16 19:58 Tamsulosin HCl (Flomax) 0.4 mg HS 11/17/16 21:00 11/22/16 20:48 0.4 MG Vitamin B Complex/ Vitamin C (Mago-Mouna) 1 tab DAILY 11/17/16 09:00 11/22/16 09:08 1 TAB Lab Laboratory Tests Test 11/22/16 16:37 11/22/16 20:43 11/23/16 08:07 11/23/16 12:11 Glucose (Fingerstick) 158mg/dL (70-99) 185mg/dL (70-99) 147mg/dL (70-99) 178mg/dL (70-99) RIVKA PIEDRA MD Nov 23, 2016 14:40
--- NOTE | 2016-11-23 15:35 | DS ---
DATE OF DISCHARGE: 11/23/2016 HOSPITAL SUMMARY: The patient came in with known chronic ulcer on the plantar aspect of his left foot with increasing weakness and some chest pain as well. They brought him in. Chest x-ray was clear. Angiogram of the left lower extremity showed good flow down to the distal left tibioperoneal trunk which was greatly stenosed and Dr. Santiago performed successful uneventful balloon angioplasty with better flow present. The anterior tibial artery was occluded. Cardiac enzymes showed only minor elevations of troponin consistent with known renal disease. Creatinine was high at 4.8 consistent with his end-stage renal disease. CBC was within normal limits. Nitroglycerin was added with good relief of his chest pain and Dr. Matthews also increased his Ranexa, so we stopped his Imdur given his low blood pressure and his blood pressure was stable on the higher dose of Ranexa. He has had no further chest pain. The diabetic plantar ulcer was addressed as he was having trouble with wound healing and angioplasty has provided potential benefit for wound healing there. He initially was planning to go to group home because of his ongoing weakness, but is feeling much stronger and wishes to go home to be followed as an outpatient at this point. His blood sugars were addressed and his insulin dosage was reduced, but he still had borderline low blood sugars, so insulin was stopped. Blood sugars have been stable as he has lost quite a bit of weight as an outpatient. FINAL DIAGNOSES: 1. Chest pain secondary to angina pectoris and diffuse coronary artery disease. 2. 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 3. Recurrent hypoglycemia secondary to insulin use. OPERATIONS AND PROCEDURES: Arteriogram of left lower extremity and angioplasty of the left distal tibioperoneal trunk. COMPLICATIONS: None. CONSULTATIONS: Dr. Santiago and Dr. Matthews. DISPOSITION: He will stay off insulin for now and may have to use only tiny doses in the future if any. All meds remain the same including aspirin and Plavix and Ranexa was increased to a 1000 mg twice a day. Continues on dialysis and office followup with me, Dr. Matthews, and [facility] as scheduled. PROGNOSIS: Guarded. SANDEEP YANG MD DR: NIKOLAI/macho JOB#: [id number] / [id number]
== END 2016-11-23 20:43 | disposition home or self-care (01) | DRG 252 ==
LOC: ER 13:54 → 2 SOUTH 15:21
PROVIDERS: ADMIT Family Medicine; ATTEND Family Medicine
PROC: 5A1D60Z (ICD-10-PCS; 2016-11-18)
PROC: 047U3ZZ Dilation of Left Peroneal Artery, Percutaneous Approach (ICD-10-PCS; principal; 2016-11-20)
PROC: 047S3ZZ Dilation of Left Posterior Tibial Artery, Percutaneous Approach (ICD-10-PCS; 2016-11-20)
PROC: B4101ZZ Fluoroscopy of Abdominal Aorta using Low Osmolar Contrast (ICD-10-PCS; 2016-11-20)
PROC: B41G1ZZ Fluoroscopy of Left Lower Extremity Arteries using Low Osmolar Contrast (ICD-10-PCS; 2016-11-20)
DX: I25.119 Atherosclerotic heart disease of native coronary artery with unspecified angina pectoris (principal); N18.6 End stage renal disease; I13.2 Hypertensive heart and chronic kidney disease with heart failure and with stage 5 chronic kidney disease, or end stage renal disease; I70.202 Unspecified atherosclerosis of native arteries of extremities, left leg; E11.621 Type 2 diabetes mellitus with foot ulcer; I27.2 Other secondary pulmonary hypertension; L97.509 Non-pressure chronic ulcer of other part of unspecified foot with unspecified severity; J44.9 Chronic obstructive pulmonary disease, unspecified; E11.22 Type 2 diabetes mellitus with diabetic chronic kidney disease; I48.91 Unspecified atrial fibrillation; D64.9 Anemia, unspecified; E21.3 Hyperparathyroidism, unspecified; E11.51 Type 2 diabetes mellitus with diabetic peripheral angiopathy without gangrene; I50.9 Heart failure, unspecified; T38.3X5A Adverse effect of insulin and oral hypoglycemic [antidiabetic] drugs, initial encounter; Z87.891 Personal history of nicotine dependence; Z95.1 Presence of aortocoronary bypass graft; Z95.5 Presence of coronary angioplasty implant and graft; Z99.2 Dependence on renal dialysis; Z90.49 Acquired absence of other specified parts of digestive tract; Z80.9 Family history of malignant neoplasm, unspecified; Z95.0 Presence of cardiac pacemaker; E11.649 Type 2 diabetes mellitus with hypoglycemia without coma
CPT/HCPCS: 36415; 37228; 71010; 75625; 75710; 75774; 76937; 80048; 80053; 82533; 82947; 83880; 84484; 85027; 85610; 85730; 93005; 93926; 94250; 94640; 96374; 96376; C1713; C1725; C1760; C1769; C1892; C1894; G0269; J1815; J2250; J2270; J3010; J7042; J7050; J7620; P9045; Q0163; Q9967; 97110; 97116; 99285-25; J7030

== ENCOUNTER → 2016-11-26 | Outpatient (CLI) | payer MEDICARE, OTHER ==
[2016-11-23 11:24] VITALS: BP 98/36
[~2016-11-26] MED LIST changes: +PARO20TA55 PO; +PRAZ5CAP2 PO
== END | disposition home or self-care (01) ==
LOC: PMGWOUND 13:44
PROVIDERS: ATTEND Emergency Medicine Undersea and Hyperbaric Medicine
DX: E11.621 Type 2 diabetes mellitus with foot ulcer (principal); L97.523 Non-pressure chronic ulcer of other part of left foot with necrosis of muscle; L97.511 Non-pressure chronic ulcer of other part of right foot limited to breakdown of skin; E11.622 Type 2 diabetes mellitus with other skin ulcer; I87.312 Chronic venous hypertension (idiopathic) with ulcer of left lower extremity; L97.221 Non-pressure chronic ulcer of left calf limited to breakdown of skin; E11.22 Type 2 diabetes mellitus with diabetic chronic kidney disease; N18.6 End stage renal disease; Z85.038 Personal history of other malignant neoplasm of large intestine; Z99.2 Dependence on renal dialysis; Z95.1 Presence of aortocoronary bypass graft; Z87.891 Personal history of nicotine dependence
CPT/HCPCS: 11042; 97597

== ENCOUNTER → 2016-12-03 | Outpatient (CLI) | payer MEDICARE, OTHER ==
[2016-11-23 11:24] VITALS: BP 98/36
== END | disposition home or self-care (01) ==
LOC: PMGWOUND 13:10
PROVIDERS: ATTEND Emergency Medicine Undersea and Hyperbaric Medicine
DX: E11.621 Type 2 diabetes mellitus with foot ulcer (principal); L97.523 Non-pressure chronic ulcer of other part of left foot with necrosis of muscle; L97.511 Non-pressure chronic ulcer of other part of right foot limited to breakdown of skin; E11.622 Type 2 diabetes mellitus with other skin ulcer; L97.321 Non-pressure chronic ulcer of left ankle limited to breakdown of skin; I87.312 Chronic venous hypertension (idiopathic) with ulcer of left lower extremity; L97.221 Non-pressure chronic ulcer of left calf limited to breakdown of skin; E11.22 Type 2 diabetes mellitus with diabetic chronic kidney disease; N18.6 End stage renal disease; Z99.2 Dependence on renal dialysis; Z85.038 Personal history of other malignant neoplasm of large intestine; Z95.1 Presence of aortocoronary bypass graft; Z87.891 Personal history of nicotine dependence
CPT/HCPCS: 87071; 87075; 87205; 97597

== ENCOUNTER 2016-12-29 13:18 | Inpatient (IN) | payer MEDICARE, OTHER ==
[~2016-12-29] VITALS: Ht 167.6 cm; Wt 60.0 kg
[~2016-12-29 13:18] MED LIST changes: -POTA10CA PO; +POTASSIUM CHLO10 MEQ PO
--- NOTE | 2016-12-29 14:03 | RAD ---
Indication shortness of air for 4 days. History of hypertension and diabetes. A single view of the chest was obtained. Comparison is made to a study 11/16/2016. Postoperative changes and a unipolar cardiac defibrillator and pacing device is noted. Cardiomegaly is unchanged. Gross congestive heart failure is not seen. The left lung is clear. There is likely a small right pleural effusion. IMPRESSION: Stable cardiomegaly. No consolidated pneumonia is seen. Probable small right pleural effusion
--- NOTE | 2016-12-29 14:28 | EKG ---
[facility] [address] [place] [address] Test Date: 2016-12-29 Test Time: 13:58:35 Pat Name: MELIDA YANG Department: Room: Gender: M [employer]: : [id number] Requested By: BOBY HERRING Order Number: [id number] Reading MD: Cecilia Ontiveros Measurements Intervals Lutz Rate: 69 P: OK: QRS: -70 QRSD: 162 T: 116 QT: 374 QTc: 402 Interpretive Statements ATRIAL FIBRILLATION ABNORMAL LEFT AXIS DEVIATION LEFT BUNDLE BRANCH BLOCK Electronically Signed On 01-03-2017 14:14:46 CDT by Cecilia Ontiveros
[2016-12-29 14:40] LABS: BASO # 0.1 x10^3/uL (0.0-0.2); BASO % 1 % (0-3); EOS % 0 % (0-3); HEMATOCRIT 39.5 % (39.0-53.0); HEMOGLOBIN 13.1 g/dL (13.0-17.5); LYMPH % 10 % (24-48); MEAN CORPUSCULAR HEMOGLOBIN 32 pg (25-35); MEAN CORPUSCULAR HGB CONC 33 g/dL (31-37); MEAN CORPUSCULAR VOLUME 95 fL (79-100); MONO % 8 % (0-9); NEUT % 81 % (31-73); PLATELET COUNT 135 x10^3/uL (140-400); RED BLOOD COUNT 4.15 x10^6/uL (4.30-5.70); RED CELL DISTRIBUTION WIDTH 16.3 % (11.5-14.5); WHITE BLOOD COUNT 9.8 x10^3/uL (4.0-11.0)
[2016-12-29 15:11] LABS: ALBUMIN/GLOBULIN RATIO 0.9 (1.0-1.7); CALCIUM 8.6 mg/dL (8.5-10.1); CREATININE 4.1 mg/dL (0.7-1.3); GFR 14.6; POTASSIUM 4.1 mmol/L (3.5-5.1); TOTAL BILIRUBIN 0.9 mg/dL (0.2-1.0); TOTAL PROTEIN 6.4 g/dL (6.4-8.2)
--- NOTE | 2016-12-29 16:24 | RAD ---
Indication weakness. Fall. Closed head injury. Noncontrast images of the head were obtained. Note is made of a previous examination 3 years ago. The calvarium appears unremarkable and the visualized paranasal sinuses appear normal. There is no subdural or epidural hematoma. There is no mass or midline shift. No hemorrhage is seen. No acute intracranial finding is apparent. IMPRESSION: No acute finding PQRS Compliance Statement: One or more of the following individualized dose reduction techniques were utilized for this examination: 1. Automated exposure control 2. Adjustment of the mA and/or kV according to patient size 3. Use of iterative reconstruction technique
[2016-12-29] MEDS ORDERED: ACETAMINOPHEN 325 MG TABLET. PO PRN (17:15)
--- NOTE | 2016-12-29 17:34 | ED.ADGEN ---
Past Medical History Past Medical History: A-Fib, Cancer, CHF, COPD, Diabetes-Type II, Heart Disease , Hypertension, Renal Failure Additional Past Medical Histor: sleep apnea Past Surgical History: Cancer Surgery, Cholecystectomy, Coronary Bypass Surgery , Pacemaker, Other Additional Past Surgical Histo: "KIDNEY REMOVED" Alcohol Use: None Drug Use: None Adult General Chief Complaint Chief Complaint: SHORTNESS OF BREATH HPI HPI Patient is a 66 year old man, history of end-stage renal disease on hemodialysis , type 2 diabetes mellitus that is insulin-dependent, hypertension, hyperlipidemia, CAD, CHF, chronic diabetic ulcers bilateral lower extremities, who presents to the emergency department with his from the wound clinic where he was scheduled to undergo hyperbaric treatment. Patient states he's been feeling recently weak and short of breath for the past several days. He did complete a full dialysis session today, although he states he did have difficulty accessing his graft site. Patient denies any fevers or chills, any chest pain, is complaining of shortness of breath with increased dyspnea and exertion, and generalized weakness, denies any focal weakness, numbness or tingling. Patient states he did have a near episode yesterday, states he is feeling very weak and he fell down and struck his head. Denies a loss of consciousness, states he was able to get back up and ambulate without issue after this occurred. He does take a daily aspirin. His er manager Dr. Matthews, his online project manager is Dr. Kuo, primary care provider is Dr. Yang. Review of Systems Review of Systems Constitutional: Denies fever or chills. [] Eyes: Denies change in visual acuity. [] HENT: Denies nasal congestion or sore throat. [] Respiratory: Denies cough, complaining of shortness of breath, increasing over the past several days. Associated generalized weakness. Cardiovascular: Denies chest pain or edema. [] GI: Denies abdominal pain, nausea, vomiting, bloody stools or diarrhea. [] : Denies dysuria. [] Musculoskeletal: Denies back pain or joint pain. [] Integument: Denies rash. [] Neurologic: Denies headache, focal weakness or sensory changes. [] Generalized weakness. Endocrine: Denies polyuria or polydipsia. [] Lymphatic: Denies swollen glands. [] Psychiatric: Denies depression or anxiety. [] Allergies Allergies Allergies Coded Allergies Type Severity Reaction Last Updated Verified adhesive Allergy Severe STERI STRIPS- PEELING SKIN 12/29/16 Yes Physical Exam Physical Exam Constitutional: Well developed, well nourished, no acute distress, non-toxic appearance. [] HENT: Normocephalic, atraumatic, bilateral external ears normal, oropharynx moist, no oral exudates, nose normal. [] Eyes: PERRLA, EOMI, conjunctiva normal, no discharge. [] Neck: Normal range of motion, no tenderness, supple, no stridor. [] Cardiovascular:Heart rate regular rhythm, no murmur [] Lungs & Thorax: Bilateral breath sounds clear to auscultation [] Abdomen: Bowel sounds normal, soft, no tenderness, no masses, no pulsatile masses. [] Skin: Warm, dry, no erythema, no rash. [] Back: No tenderness, no CVA tenderness. [] Extremities: No tenderness, no cyanosis, no clubbing, ROM intact, no edema. [] Neurologic: Alert and oriented X 3, normal motor function, normal sensory function, no focal deficits noted. [] Psychologic: Affect normal, judgement normal, mood normal. [] Current Patient Data Vital Signs Vital Signs Date Time Temp Pulse Resp B/P (MAP) Pulse Ox O2 Delivery O2 Flow Rate FiO2 12/29/16 14:11 72 18 121/58 (79) 100 Room Air 2.0 12/29/16 13:30 97.6 97.6 Lab Values Laboratory Tests Test 12/29/16 14:20 12/29/16 14:28 12/29/16 14:55 White Blood Count 9.8 x10^3/uL (4.0-11.0) Red Blood Count 4.15 x10^6/uL (4.30-5.70) L Hemoglobin 13.1 g/dL (13.0-17.5) Hematocrit 39.5 % (39.0-53.0) Mean Corpuscular Volume 95 fL (79-100) Mean Corpuscular Hemoglobin 32 pg (25-35) Mean Corpuscular Hemoglobin Concent 33 g/dL (31-37) Red Cell Distribution Width 16.3 % (11.5-14.5) H Platelet Count 135 x10^3/uL (140-400) L Neutrophils (%) (Auto) 81 % (31-73) H Lymphocytes (%) (Auto) 10 % (24-48) L Monocytes (%) (Auto) 8 % (0-9) Eosinophils (%) (Auto) 0 % (0-3) Basophils (%) (Auto) 1 % (0-3) Neutrophils # (Auto) 7.9 x10^3uL (1.8-7.7) H Lymphocytes # (Auto) 1.0 x10^3/uL (1.0-4.8) Monocytes # (Auto) 0.8 x10^3/uL (0.0-1.1) Eosinophils # (Auto) 0.0 x10^3/uL (0.0-0.7) Basophils # (Auto) 0.1 x10^3/uL (0.0-0.2) Sodium Level 140 mmol/L (136-145) Potassium Level 4.1 mmol/L (3.5-5.1) Chloride Level 98 mmol/L (98-107) Carbon Dioxide Level 32 mmol/L (21-32) Anion Gap 10 (6-14) 16 mmol/L (6-14) H Blood Urea Nitrogen 28 mg/dL (8-26) H Creatinine 4.1 mg/dL (0.7-1.3) H Estimated GFR (Cockcroft-Gault) 14.6 BUN/Creatinine Ratio 7 (6-20) Glucose Level 158 mg/dL (70-99) H 152 mg/dL (70-99) H Calcium Level 8.6 mg/dL (8.5-10.1) Total Bilirubin 0.9 mg/dL (0.2-1.0) Aspartate Amino Transferase (AST) 60 U/L (15-37) H Alanine Aminotransferase (ALT) 84 U/L (16-63) H Alkaline Phosphatase 157 U/L (46-116) H Troponin I Quantitative 0.082 ng/mL (0.000-0.055) GM-Rbm-U-Type Natriuretic Peptide > 75766 pg/mL (0-124) H Total Protein 6.4 g/dL (6.4-8.2) Albumin 3.0 g/dL (3.4-5.0) L Albumin/Globulin Ratio 0.9 (1.0-1.7) L POC Troponin I Pending POC Hemoglobin 15.0 g/dL (14-18) POC Hematocrit 44 % (37-52) POC Sodium 136 mmol/L (135-145) POC Potassium 4.0 mmol/L (3.5-5.0) POC Chloride 94 mmol/L (98-110) L POC Total CO2 30 mmol/L (23-32) POC Blood Urea Nitrogen 27 mg/dL (8-26) H POC Creatinine 3.7 mg/dL (0.5-1.4) H POC Ionized Calcium (Crescencio) 1.05 mmol/L (1.13-1.32) L Laboratory Tests 12/29/16 14:20 Laboratory Tests 12/29/16 14:20 12/29/16 14:55 EKG EKG EK: Paced rhythm, heart rate 69 bpm, left axis deviation, QTC of 402, QRS of 162, with compared to ECG from 03/24/15, patient does have some contour abnormality throughout the QRS complex which are consistent with electrolyte changes, does not meet STEMI criteria. Abnormal ECG. As interpreted by me. Reviewed bedside with Dr. Matthews. Radiology/Procedures Radiology/Procedures [][facility] [address] [place] [address] IMAGING REPORT Signed PATIENT: MELIDA YANG ACCOUNT: [id number] : 1950 LOCATION: ER AGE: 66 SEX: M EXAM STATUS: REG ER ORD. PHYSICIAN: BOBY HERRING DO REASON: fall/weakness PROCEDURE: CT HEAD WO CONTRAST Indication weakness. Fall. Closed head injury. Noncontrast images of the head were obtained. Note is made of a previous examination 3 years ago. The calvarium appears unremarkable and the visualized paranasal sinuses appear normal. There is no subdural or epidural hematoma. There is no mass or midline shift. No hemorrhage is seen. No acute intracranial finding is apparent. IMPRESSION: No acute finding PQRS Compliance Statement: One or more of the following individualized dose reduction techniques were utilized for this examination: 1. Automated exposure control 2. Adjustment of the mA and/or kV according to patient size 3. Use of iterative reconstruction technique DICTATED and SIGNED BY: LEESA RICHMOND MD DATE: 12/29/16 [id number] CC: SANDEEP YANG MD; BOBY HERRING DO ~ Impressions: [facility] [address] [place] [address] IMAGING REPORT Signed PATIENT: MELIDA YANG ACCOUNT: [id number] : 1950 LOCATION: ER AGE: 66 SEX: M EXAM STATUS: REG ER ORD. PHYSICIAN: BOBY HERRING DO REASON: SOB PROCEDURE: PORTABLE CHEST 1V Indication shortness of air for 4 days. History of hypertension and diabetes. A single view of the chest was obtained. Comparison is made to a study 11/16/2016. Postoperative changes and a unipolar cardiac defibrillator and pacing device is noted. Cardiomegaly is unchanged. Gross congestive heart failure is not seen. The left lung is clear. There is likely a small right pleural effusion. IMPRESSION: Stable cardiomegaly. No consolidated pneumonia is seen. Probable small right pleural effusion DICTATED and SIGNED BY: LEESA RICHMOND MD DATE: 12/29/16 8944 CC: SANDEEP YANG MD; BOBY HERRING DO ~ Course & Med Decision Making Course & Med Decision Making Pertinent Labs and Imaging studies reviewed. (See chart for details) Patient plenty of generalized weakness, chest x-ray is unchanged from prior, laboratory studies not reveal any acutely concerning findings, noted have a positive troponin 0.082, but is in line with patient's previous troponins, although it could be elevated as patient did complete dialysis today. Patient has not expressed any chest pain as stated, ECG reviewed at bedside with Dr. Matthews, contour normalities are consistent with chronic electronic abnormalities, although there are no electrolyte abnormalities identified which require addressing at this time, first notified on i-STAT chemistry and troponin. CT of the head also obtained due to patient's report of fall, and use of aspirin, along with comorbidities. Patient is not experiencing any pain other locations or any neurologic normalities, CT of the head was unremarkable. Findings as above were discussed with both Dr. Matthews, and Dr. Yang, the patient's primary care provider. Patient was accepted by Dr. Yang as a full admission to the medical telemetry floor for continued monitoring and assessment , due to his extreme weakness and fatigue with dyspnea. Consultation also placed for Dr. Kuo of nephrology, due to the patient's difficulties with access. Concerned that this is progression of the patient's underlying medical issues. At this time the patient remains full code. Patient remained stable and comfortable during his ED course, transfer to the floor without issue. Dragon Disclaimer Dragon Disclaimer This electronic medical record was generated, in whole or in part, using a voice recognition dictation system. Departure Impression: Primary Impression: Weakness Additional Impressions: Shortness of breath Diabetic ulcer of left foot Elevated troponin End stage renal disease Disposition: ADMITTED INPATIENT Admitting Physician: Sandeep Yang Condition: IMPROVED Problem Qualifiers BOBY HERRING DO December 29, 2016 17:34
[2016-12-29 19:00] VITALS: BP 175/58
[2016-12-29] MEDS ORDERED: NITROGLYCERIN SUBLINGUAL 0.4 MG BOTTLE OF 25. SL PRN (20:30)
[2016-12-29] MEDS ORDERED: UMEC1DIS IH (20:37)
[2016-12-29] MEDS: GABAPENTIN 100 MG CAPSULE. PO SCH (20:44)
[2016-12-29] MEDS: TEMAZEPAM 15 MG CAPSULE PO PRN (20:44)
[2016-12-29] MEDS: TAMSULOSIN 0.4 MG CAP.ER.24H. PO SCH (20:44)
[2016-12-29] MEDS ORDERED: FAMOTIDINE 20 MG TABLET. PO SCH (21:00)
[2016-12-29 23:00] VITALS: BP 96/49
[2016-12-30 03:00] VITALS: BP 99/45
[2016-12-30 04:58] LABS: BASO # 0.1 x10^3/uL (0.0-0.2); BASO % 1 % (0-3); EOS % 1 % (0-3); HEMATOCRIT 37.2 % (39.0-53.0); HEMOGLOBIN 12.4 g/dL (13.0-17.5); LYMPH # 1.5 x10^3/uL (1.0-4.8); LYMPH % 17 % (24-48); MEAN CORPUSCULAR HEMOGLOBIN 32 pg (25-35); MEAN CORPUSCULAR HGB CONC 33 g/dL (31-37); MEAN CORPUSCULAR VOLUME 95 fL (79-100); MONO % 9 % (0-9); NEUT % 71 % (31-73); PLATELET COUNT 125 x10^3/uL (140-400); RED BLOOD COUNT 3.91 x10^6/uL (4.30-5.70); RED CELL DISTRIBUTION WIDTH 16.5 % (11.5-14.5); WHITE BLOOD COUNT 8.7 x10^3/uL (4.0-11.0)
[2016-12-30 05:18] LABS: CALCIUM 8.4 mg/dL (8.5-10.1); CREATININE 4.7 mg/dL (0.7-1.3); GFR 12.5; POTASSIUM 4.1 mmol/L (3.5-5.1)
[2016-12-30] MEDS ORDERED: ONDANSETRON ODT 4 MG TAB.RAPDIS. PO PRN (05:45)
[2016-12-30 06:14] VITALS: BP 99/54
[2016-12-30 07:54] VITALS: BP 102/45
[2016-12-30] MEDS: CALCIUM ACETATE 667 MG CAPSULE PO SCH ×3 (08:26→17:56)
[2016-12-30] MEDS: ASPIRIN CHEWABLE 81 MG TABLET. PO SCH (08:26)
[2016-12-30] MEDS: FOLIC/VIT B COMP W-C (RENAL) TABLET. PO SCH (08:26)
[2016-12-30] MEDS: PARoxetine 20 MG TABLET PO SCH (08:27)
[2016-12-30] MEDS: GABAPENTIN 100 MG CAPSULE. PO SCH ×2 (08:27→20:58)
[2016-12-30] MEDS: ALLOPURINOL 100 MG TABLET. PO SCH (08:30)
[2016-12-30] MEDS: RANOLAZINE 500 MG TAB.ER.12H PO SCH (08:31)
--- NOTE | 2016-12-30 08:35 | PDOC ---
Provider Note Provider Note [id number] SANDEEP YANG MD December 30, 2016 08:35
[2016-12-30] MEDS ORDERED: POLYETHYLENE GLYCOL 3350 17 GM PACKET. PO PRN (09:00)
[2016-12-30] MEDS ORDERED: DIGOXIN 125 MCG TABLET. PO SCH (09:00)
[2016-12-30] MEDS ORDERED: ALLOPURINOL 300 MG TABLET. PO SCH (09:00)
--- NOTE | 2016-12-30 09:12 | HP ---
ADMIT DATE: 12/29/2016 CHIEF COMPLAINT: Weakness. HISTORY OF PRESENT ILLNESS: A 66-year-old white male with history of coronary artery disease and end-stage renal disease, on dialysis, was at dialysis and became feeling weak and dizzy and had somewhat low blood pressure. ER evaluation was done with CT scan of the head, which was normal; chest x-ray clear; and labs were unremarkable, and he is admitted and feeling better at this time. PAST MEDICAL HISTORY: Multiple admissions for similar problems, history of coronary artery disease. MEDICATIONS: No new medications. ALLERGIES: No drug allergies. SOCIAL HISTORY: Lives at home with his . He is , nonsmoker, nondrinker, disabled. FAMILY HISTORY: Unremarkable. REVIEW OF SYSTEMS: No other specific problems. OBJECTIVE: ENT: All within normal limits. NECK: No masses, nodes, or bruits. LUNGS: Clear. CARDIOVASCULAR: Regular rate. No irregular beat or murmur. ABDOMEN: Soft, benign, and nontender. EXTREMITIES: Dialysis shunt is noted. No edema. SKIN: Turgor decreased. Decreased pedal pulses. NEUROLOGIC: Physiologic, alert, appropriate, responsive. Moves all extremities. Gait not tested. Mental status is intact. Oriented x 4. ASSESSMENT: General malaise and weakness secondary to dialysis induced hypotension. His, generally, medical status is stable. He is off insulin now regarding his, possibly, diabetes. PLAN: Supportive care, could possibly be discharged later today if other consultants are comfortable and patient feels well. SANDEEP YANG MD DR: NIKOLAI/macoh JOB#: [id number] / [id number]
--- NOTE | 2016-12-30 10:31 | PDOC2 ---
CONSULT Date of Consult Date of Consult DATE: 12/30/16 TIME: 10:27 Reason for Consult Reason for Consult: ESRD Referring Physician Referring Physician: CELIA Identification/Chief Complaint Chief Complaint SOB Source Source: Chart review, Patient History of Present Illness Reason for Visit: THIS IS A 66 YR OLD ADMITTED WITH SOB. HE IS UNDERGOING EVALUATION FOR THIS. HIS CXRAY IS NEG. HE IS KNOW TO HAVE SEVERE CAD AND CM WITH A HX OF CHF. HE ALSO HAS A HX OF ESRD AND IS ON OP MWF. HE SKIPPED HIS HD ON WEDNESDAY BUT WENT IN FOR A MAKE UP [place] YESTERDAY AND WAS DIALYZED TO HIS ESTABLISHED DW. DENIED ANY CHEST PAIN Past Medical History Cardiovascular: AFIB, CAD, CHF, HTN, Valve insufficiency, Pulmonary hypertension Heme/Onc: Cancer, Iron deficiency Anemia Musculoskeletal: Muscle atrophy, Weakness Renal/: Chronic renal failure Endocrine: Hyperparathyroidism Past Surgical History Past Surgical History: Cholecystectomy, Cataract Removal, Colon Resection, Other Family History Family History: Cancer Social History ALCOHOL: none Drugs: None Lives: with Family Current Problem List Problem List Problems Medical Problems: (1) Diabetic ulcer of left foot Status: Acute (2) Elevated troponin Status: Acute (3) End stage renal disease Status: Acute (4) Weakness Status: Acute Current Medications Current Medications Current Medications Acetaminophen (Tylenol) 650 mg PRN Q4HRS PRN PO FEVER Last administered on 12/29 20:44; Start 12/29/16 at 17:15; Stop 12/30/16 at 17:14 Temazepam (Restoril) 15 mg PRN QHS PRN PO INSOMNIA Last administered on 20:44; Start 12/29/16 at 20:30 Allopurinol (Zyloprim) 300 mg DAILY PO ; Start 12/30/16 at 09:00; Stop 12/30/16 at 09:00; Status DC Aspirin (Children'S Aspirin) 81 mg DAILY PO Last administered on 12/30/16 08: 26; Start 12/30/16 at 09:00 Calcium Acetate (Phoslo) 667 mg TIDWMEALS PO Last administered on 12/30/16 08: 26; Start 12/30/16 at 08:00 Digoxin (Lanoxin) 125 mcg DAILY PO Last administered on 12/30/16 08:26; Start 12/30/16 at 09:00 Famotidine (Pepcid) 20 mg QHS PO Last administered on 12/29/16 20:44; Start at 21:00 Vitamin B Complex/ Vitamin C (Mago-Mouna) 1 tab DAILY PO Last administered on 08:26; Start 12/30/16 at 09:00 Gabapentin (Neurontin) 100 mg BID PO Last administered on 12/30/16 08:27; Start 12/29/16 at 21:00 Nitroglycerin (Nitrostat) 0.4 mg PRN Q15MIN PRN SL CHEST PAIN; Start 12/29/16 at 20:30 Paroxetine HCl (Paxil) 20 mg DAILY PO Last administered on 12/30/16 08:27; Start 12/30/16 at 09:00 Polyethylene Glycol (miraLAX PACKET) 17 gm PRN DAILY PRN PO CONSTIPATION; Start 12/30/16 at 09:00 Ranolazine (Ranexa) 500 mg DAILY PO Last administered on 12/30/16 08:31; Start 12/30/16 at 09:00 Tamsulosin HCl (Flomax) 0.4 mg QHS PO Last administered on 12/29/16 20:44; Start 12/29/16 at 21:00 Ondansetron HCl (Zofran Odt) 4 mg PRN Q6HRS PRN PO NAUSEA/VOMITING Last administered on 12/30/16 06:08; Start 12/30/16 at 05:45 Allopurinol (Zyloprim) 100 mg DAILY PO ; Start 12/30/16 at 09:00 Active Scripts Active Reported Anoro Ellipta 62.5-25 Mcg Inh (Umeclidinium Brm/Vilanterol Tr) 1 Each Disk.w.dev 1 Each IH Paxil (Paroxetine Hcl) 20 Mg Tablet 1 Tab PO DAILY Gabapentin 100 Mg Capsule 100 Mg PO BID Ranexa (Ranolazine) 500 Mg Tab.er.12h 1 Tab PO DAILY Phoslo (Calcium Acetate) 667 Mg Capsule 667 Mg PO TIDWMEALS Polyethylene Glycol 3350 255 Gm Powder 17 Gm PO DAILY PRN Dialyvite 800 Tablet (Folic Acid/Vitamin B Comp W-C) 0.8 Mg Tablet 0.8 Mg PO DAILY NITROGLYCERIN SubLingual (Nitroglycerin) 0.4 Mg Tab.subl 0.4 Mg SL PRN Allopurinol 300 Mg Tablet 300 Mg PO DAILY Pepcid (Famotidine) 20 Mg Tablet 20 Mg PO QHS Lanoxin (Digoxin) 125 Mcg Tablet 125 Mcg PO DAILY Flomax (Tamsulosin Hcl) 0.4 Mg Cap.er.24h 0.4 Mg PO HS Aspirin 81 Mg Tab.chew 81 Mg PO DAILY Allergies Allergies: Coded Allergies: adhesive (Verified Allergy, Severe, STERI STRIPS- PEELING SKIN, 12/29/16) STERI STRIPS ROS General: YES: Fatigue, Appetite PSYCHOLOGICAL ROS: YES: Depression Eyes: Yes Decreased vision Respiratory: YES: Cough, Orthopnea, Shortness of breath Cardiovascular: yes Edema Gastrointestinal: Yes Constipation Genitourinary: YES Other (ANURIA) Musculoskeletal: Yes Muscular Weakness Neurological: Yes Weakness Skin: Yes Dry Skin Physical Exam General: Alert, Oriented X3, No acute distress HEENT: PERRLA, EOMI Lungs: Clear to auscultation, Normal air movement Heart: Regular rate, Other (1-2+ EDEMA) Abdomen: Normal bowel sounds, Soft, No tenderness Skin: No rashes, No significant lesion Neuro: Normal speech, Cranial nerves 3-12 NL Psych/Mental Status: Mental status NL, Mood NL MUSCULOSKELETAL: No deformity Vitals VITALS Vital Signs Date Time Temp Pulse Resp B/P (MAP) Pulse Ox O2 Delivery O2 Flow Rate FiO2 12/30/16 08:31 64 102/45 12/30/16 08:00 Nasal Cannula 2.0 12/30/16 07:54 97.3 17 100 97.3 Labs Labs Laboratory Tests Test 12/29/16 14:20 12/29/16 14:28 12/29/16 14:55 12/29/16 21:24 White Blood Count 9.8 x10^3/uL (4.0-11.0) Red Blood Count 4.15 x10^6/uL (4.30-5.70) Hemoglobin 13.1 g/dL (13.0-17.5) Hematocrit 39.5 % (39.0-53.0) Mean Corpuscular Volume 95 fL (79-100) Mean Corpuscular Hemoglobin 32 pg (25-35) Mean Corpuscular Hemoglobin Concent 33 g/dL (31-37) Red Cell Distribution Width 16.3 % (11.5-14.5) Platelet Count 135 x10^3/uL (140-400) Neutrophils (%) (Auto) 81 % (31-73) Lymphocytes (%) (Auto) 10 % (24-48) Monocytes (%) (Auto) 8 % (0-9) Eosinophils (%) (Auto) 0 % (0-3) Basophils (%) (Auto) 1 % (0-3) Neutrophils # (Auto) 7.9 x10^3uL (1.8-7.7) Lymphocytes # (Auto) 1.0 x10^3/uL (1.0-4.8) Monocytes # (Auto) 0.8 x10^3/uL (0.0-1.1) Eosinophils # (Auto) 0.0 x10^3/uL (0.0-0.7) Basophils # (Auto) 0.1 x10^3/uL (0.0-0.2) Sodium Level 140 mmol/L (136-145) Potassium Level 4.1 mmol/L (3.5-5.1) Chloride Level 98 mmol/L (98-107) Carbon Dioxide Level 32 mmol/L (21-32) Anion Gap 10 (6-14) 16 mmol/L (6-14) Blood Urea Nitrogen 28 mg/dL (8-26) Creatinine 4.1 mg/dL (0.7-1.3) Estimated GFR (Cockcroft-Gault) 14.6 BUN/Creatinine Ratio 7 (6-20) Glucose Level 158 mg/dL (70-99) 152 mg/dL (70-99) Calcium Level 8.6 mg/dL (8.5-10.1) Total Bilirubin 0.9 mg/dL (0.2-1.0) Aspartate Amino Transf (AST/SGOT) 60 U/L (15-37) Alanine Aminotransferase (ALT/SGPT) 84 U/L (16-63) Alkaline Phosphatase 157 U/L (46-116) Troponin I Quantitative 0.082 ng/mL (0.000-0.055) VG-Sne-Z-Type Natriuretic Peptide > 76204 pg/mL (0-124) Total Protein 6.4 g/dL (6.4-8.2) Albumin 3.0 g/dL (3.4-5.0) Albumin/Globulin Ratio 0.9 (1.0-1.7) Bedside Hemoglobin 15.0 g/dL (14-18) Bedside Hematocrit 44 % (37-52) Bedside Sodium 136 mmol/L (135-145) Bedside Potassium 4.0 mmol/L (3.5-5.0) Bedside Chloride 94 mmol/L (98-110) Bedside Total CO2 30 mmol/L (23-32) Bedside Blood Urea Nitrogen 27 mg/dL (8-26) Bedside Creatinine 3.7 mg/dL (0.5-1.4) Bedside Ionized Calcium (Crescencio) 1.05 mmol/L (1.13-1.32) Glucose (Fingerstick) 159 mg/dL (70-99) Test 12/30/16 03:40 12/30/16 07:32 White Blood Count 8.7 x10^3/uL (4.0-11.0) Red Blood Count 3.91 x10^6/uL (4.30-5.70) Hemoglobin 12.4 g/dL (13.0-17.5) Hematocrit 37.2 % (39.0-53.0) Mean Corpuscular Volume 95 fL (79-100) Mean Corpuscular Hemoglobin 32 pg (25-35) Mean Corpuscular Hemoglobin Concent 33 g/dL (31-37) Red Cell Distribution Width 16.5 % (11.5-14.5) Platelet Count 125 x10^3/uL (140-400) Neutrophils (%) (Auto) 71 % (31-73) Lymphocytes (%) (Auto) 17 % (24-48) Monocytes (%) (Auto) 9 % (0-9) Eosinophils (%) (Auto) 1 % (0-3) Basophils (%) (Auto) 1 % (0-3) Neutrophils # (Auto) 6.2 x10^3uL (1.8-7.7) Lymphocytes # (Auto) 1.5 x10^3/uL (1.0-4.8) Monocytes # (Auto) 0.8 x10^3/uL (0.0-1.1) Eosinophils # (Auto) 0.1 x10^3/uL (0.0-0.7) Basophils # (Auto) 0.1 x10^3/uL (0.0-0.2) Sodium Level 140 mmol/L (136-145) Potassium Level 4.1 mmol/L (3.5-5.1) Chloride Level 99 mmol/L (98-107) Carbon Dioxide Level 27 mmol/L (21-32) Anion Gap 14 (6-14) Blood Urea Nitrogen 33 mg/dL (8-26) Creatinine 4.7 mg/dL (0.7-1.3) Estimated GFR (Cockcroft-Gault) 12.5 Glucose Level 117 mg/dL (70-99) Calcium Level 8.4 mg/dL (8.5-10.1) Digoxin Level 5.5 ng/mL (0.9-2.0) Digoxin Last Dose Date 12/29/16 Digoxin Last Dose Time 0900 Glucose (Fingerstick) 108 mg/dL (70-99) Laboratory Tests Test 12/29/16 14:20 12/29/16 14:28 12/29/16 14:55 12/29/16 21:24 White Blood Count 9.8 x10^3/uL (4.0-11.0) Red Blood Count 4.15 x10^6/uL (4.30-5.70) Hemoglobin 13.1 g/dL (13.0-17.5) Hematocrit 39.5 % (39.0-53.0) Mean Corpuscular Volume 95 fL (79-100) Mean Corpuscular Hemoglobin 32 pg (25-35) Mean Corpuscular Hemoglobin Concent 33 g/dL (31-37) Red Cell Distribution Width 16.3 % (11.5-14.5) Platelet Count 135 x10^3/uL (140-400) Neutrophils (%) (Auto) 81 % (31-73) Lymphocytes (%) (Auto) 10 % (24-48) Monocytes (%) (Auto) 8 % (0-9) Eosinophils (%) (Auto) 0 % (0-3) Basophils (%) (Auto) 1 % (0-3) Neutrophils # (Auto) 7.9 x10^3uL (1.8-7.7) Lymphocytes # (Auto) 1.0 x10^3/uL (1.0-4.8) Monocytes # (Auto) 0.8 x10^3/uL (0.0-1.1) Eosinophils # (Auto) 0.0 x10^3/uL (0.0-0.7) Basophils # (Auto) 0.1 x10^3/uL (0.0-0.2) Sodium Level 140 mmol/L (136-145) Potassium Level 4.1 mmol/L (3.5-5.1) Chloride Level 98 mmol/L (98-107) Carbon Dioxide Level 32 mmol/L (21-32) Anion Gap 10 (6-14) 16 mmol/L (6-14) Blood Urea Nitrogen 28 mg/dL (8-26) Creatinine 4.1 mg/dL (0.7-1.3) Estimated GFR (Cockcroft-Gault) 14.6 BUN/Creatinine Ratio 7 (6-20) Glucose Level 158 mg/dL (70-99) 152 mg/dL (70-99) Calcium Level 8.6 mg/dL (8.5-10.1) Total Bilirubin 0.9 mg/dL (0.2-1.0) Aspartate Amino Transf (AST/SGOT) 60 U/L (15-37) Alanine Aminotransferase (ALT/SGPT) 84 U/L (16-63) Alkaline Phosphatase 157 U/L (46-116) Troponin I Quantitative 0.082 ng/mL (0.000-0.055) FG-Cmi-X-Type Natriuretic Peptide > 68096 pg/mL (0-124) Total Protein 6.4 g/dL (6.4-8.2) Albumin 3.0 g/dL (3.4-5.0) Albumin/Globulin Ratio 0.9 (1.0-1.7) Bedside Hemoglobin 15.0 g/dL (14-18) Bedside Hematocrit 44 % (37-52) Bedside Sodium 136 mmol/L (135-145) Bedside Potassium 4.0 mmol/L (3.5-5.0) Bedside Chloride 94 mmol/L (98-110) Bedside Total CO2 30 mmol/L (23-32) Bedside Blood Urea Nitrogen 27 mg/dL (8-26) Bedside Creatinine 3.7 mg/dL (0.5-1.4) Bedside Ionized Calcium (Crescencio) 1.05 mmol/L (1.13-1.32) Glucose (Fingerstick) 159 mg/dL (70-99) Test 12/30/16 03:40 12/30/16 07:32 White Blood Count 8.7 x10^3/uL (4.0-11.0) Red Blood Count 3.91 x10^6/uL (4.30-5.70) Hemoglobin 12.4 g/dL (13.0-17.5) Hematocrit 37.2 % (39.0-53.0) Mean Corpuscular Volume 95 fL (79-100) Mean Corpuscular Hemoglobin 32 pg (25-35) Mean Corpuscular Hemoglobin Concent 33 g/dL (31-37) Red Cell Distribution Width 16.5 % (11.5-14.5) Platelet Count 125 x10^3/uL (140-400) Neutrophils (%) (Auto) 71 % (31-73) Lymphocytes (%) (Auto) 17 % (24-48) Monocytes (%) (Auto) 9 % (0-9) Eosinophils (%) (Auto) 1 % (0-3) Basophils (%) (Auto) 1 % (0-3) Neutrophils # (Auto) 6.2 x10^3uL (1.8-7.7) Lymphocytes # (Auto) 1.5 x10^3/uL (1.0-4.8) Monocytes # (Auto) 0.8 x10^3/uL (0.0-1.1) Eosinophils # (Auto) 0.1 x10^3/uL (0.0-0.7) Basophils # (Auto) 0.1 x10^3/uL (0.0-0.2) Sodium Level 140 mmol/L (136-145) Potassium Level 4.1 mmol/L (3.5-5.1) Chloride Level 99 mmol/L (98-107) Carbon Dioxide Level 27 mmol/L (21-32) Anion Gap 14 (6-14) Blood Urea Nitrogen 33 mg/dL (8-26) Creatinine 4.7 mg/dL (0.7-1.3) Estimated GFR (Cockcroft-Gault) 12.5 Glucose Level 117 mg/dL (70-99) Calcium Level 8.4 mg/dL (8.5-10.1) Digoxin Level 5.5 ng/mL (0.9-2.0) Digoxin Last Dose Date 12/29/16 Digoxin Last Dose Time 0900 Glucose (Fingerstick) 108 mg/dL (70-99) Assessment/Plan Assessment/Plan IMP ESRD SEVERE CAD SEVERE CM ANEMIA NON COMPLIANCE LE EDEMA/HYPERVOLEMIA PLAN HD TODAY UF TO DW CHALLENGE DW BY 1 KG IF TOLERATED ENCOURAGE COMPLIANCE HOLD EVITA NAVIN ACEVEDO MD December 30, 2016 10:31
[2016-12-30 11:02] VITALS: BP 105/48
[2016-12-30] MEDS ORDERED: IV NORMAL SALINE 1000ML BAG 1,000 ML IV PRN ×2 (13:21)
[2016-12-30] MEDS ORDERED: DIALYSIS PATIENT. MC PRN (13:30)
[2016-12-30] MEDS ORDERED: diphenhydrAMINE 50 MG/ML VIAL IV PRN ×2 (13:30)
[2016-12-30] MEDS ORDERED: FAMOTIDINE 20 MG TABLET. PO SCH ×2 (15:15→21:00)
[2016-12-30 19:46] VITALS: BP 108/59
[2016-12-30] MEDS: TEMAZEPAM 15 MG CAPSULE PO PRN (20:58)
[2016-12-30] MEDS: TAMSULOSIN 0.4 MG CAP.ER.24H. PO SCH (20:58)
[2016-12-30 23:15] VITALS: BP 98/46
[2016-12-31 03:11] VITALS: BP 86/41
[2016-12-31 07:40] VITALS: BP 87/42
--- NOTE | 2016-12-31 08:57 | DISCH ---
DISCHARGE FINAL DIAGNOSIS Problems Medical Problems: (1) Diabetic ulcer of left foot Status: Acute (2) Elevated troponin Status: Acute (3) End stage renal disease Status: Acute (4) Weakness Status: Acute CONDITION ON DISCHARGE: Stable HOME HEALTH: Yes PT. HAS FUNCTIONAL LIMITATIONS: Yes FACE TO FACE ENCOUNTER: Yes POST DISCHARGE ORDERS ACTIVITY ORDERS: Activity as tolerated WEIGHT BEARING STATUS: As tolerated BATHING ORDERS: No Tub Bath until see WOUND/INCISION CARE: Other, see below CHECKS AFTER DISCHARGE CHECKS AFTER DISCHARGE: Check blood sugar, ac/hs FOLLOW-UP PHYSICIAN FOLLOW-UP: as scheduled TREATMENT/EQUIPMENT ORDERS ADAPTIVE EQUIPMENT NEEDED: None SANDEEP YANG MD December 31, 2016 08:57
--- NOTE | 2016-12-31 09:00 | PDOC ---
Provider Note Provider Note [id number] SANDEEP YANG MD December 31, 2016 09:00
[2016-12-31] MEDS: ASPIRIN CHEWABLE 81 MG TABLET. PO SCH (09:11)
[2016-12-31] MEDS: ALLOPURINOL 100 MG TABLET. PO SCH (09:11)
[2016-12-31] MEDS: CALCIUM ACETATE 667 MG CAPSULE PO SCH ×3 (09:11→17:20)
[2016-12-31] MEDS: GABAPENTIN 100 MG CAPSULE. PO SCH ×2 (09:11→19:00)
[2016-12-31] MEDS: FOLIC/VIT B COMP W-C (RENAL) TABLET. PO SCH (09:12)
[2016-12-31] MEDS: PARoxetine 20 MG TABLET PO SCH (09:12)
[2016-12-31] MEDS: RANOLAZINE 500 MG TAB.ER.12H PO SCH (09:12)
[2016-12-31 10:58] VITALS: BP 114/61
--- NOTE | 2016-12-31 12:16 | PDOC ---
Renal-Progress Notes Subjective Notes Notes TIRED History of Present Illness Hx of present illness STABLE Vitals Vitals Vital Signs Date Time Temp Pulse Resp B/P (MAP) Pulse Ox O2 Delivery O2 Flow Rate FiO2 12/31/16 10:58 97.9 72 16 114/61 (78) 100 Nasal Cannula 2.0 97.9 Weight Weight [ ] I.O. Intake and Output Intake and Output 12/31/16 07:00 Intake Total 580 ml Balance 580 ml Intake Oral 580 ml # Voids 3 # Bowel Movements 1 Labs Labs Laboratory Tests Test 12/30/16 17:55 12/30/16 20:40 12/31/16 07:44 12/31/16 11:30 Glucose (Fingerstick) 103 mg/dL (70-99) 181 mg/dL (70-99) 105 mg/dL (70-99) 217 mg/dL (70-99) Review of Systems Constitutional: yes: weakness, alert, oriented Ears/Nose/Throat: Yes: no symptom reported Cardiovascular: Yes chest pain Gastrointestional: Yes: constipation Psychiatric/Neurological: Yes: no symptom reported Physical Exam General Appearance: no apparent distress Respiratory: bilateral CTA Heart: S1S2 Abdomen: soft Genitourinary: bladder flat Extremities: no edema, atrophy Neurology: alert Musculoskeletal: Muscle atrophy, Weakness Assessment Assessment IMP ANEMIA ESRD SEVERE CM PLAN HD TOMORROW UF TO DW TOLERATED UPDATED POOR PROGNOSIS TERRITORY ACCOUNT REPRESENTATIVE NAVIN ACEVEDO MD December 31, 2016 12:16
[2016-12-31 14:22] VITALS: BP 114/60
[2016-12-31] MEDS: IBUPROFEN 400 MG TABLET. PO PRN ×2 (17:38→21:24)
[2016-12-31] MEDS: TAMSULOSIN 0.4 MG CAP.ER.24H. PO SCH (19:00)
--- NOTE | 2016-12-31 19:39 | DS ---
DATE OF DISCHARGE: 12/31/2016 HOSPITAL SUMMARY: A 66-year-old white male came in with end-stage renal disease on dialysis with weakness and general malaise. Laboratory study showed a normal CBC and chemistry profile was unremarkable except for creatinine of 4.7 consistent with end-stage renal disease, but the digoxin level was high at 5.5. He had been on low dose 0.125 mg daily and this was stopped. CT scan of the head and chest x-ray were clear. He was dialyzed and given his measured fluids and in spite ____ low blood pressure, he is feeling better and comfortable to be followed as an outpatient. He is aware of the digitalis elevation in his blood and knows that he is no longer take this drug as he has not had any in the last 2 days. FINAL DIAGNOSES: 1. Weakness and malaise secondary to digitalis toxicity. 2. End-stage renal disease, on dialysis. OPERATIONS, PROCEDURES, COMPLICATIONS: None. CONSULTATIONS: Dr. Kuo. DISPOSITION: Continue all meds the same, but he will stay off digoxin and reduce his allopurinol dose to 100 mg daily. ACTIVITY: As tolerated including potassium restrictions as discussed. Prognosis is guarded because of his declining medical state. SANDEEP YANG MD DR: NIKOLAI/nts JOB#: [id number] / [id number]
[2016-12-31 19:47] VITALS: BP 117/58
[2016-12-31] MEDS: TEMAZEPAM 15 MG CAPSULE PO PRN (21:24)
[2016-12-31 23:23] VITALS: BP 97/48
[2017-01-01 03:38] VITALS: BP 97/48
[2017-01-01 06:48] VITALS: BP 114/56
[2017-01-01 06:51] LABS: CALCIUM 8.5 mg/dL (8.5-10.1); CREATININE 4.5 mg/dL (0.7-1.3); GFR 13.1; POTASSIUM 3.9 mmol/L (3.5-5.1)
--- NOTE | 2017-01-01 07:42 | PDOC ---
Provider Note Provider Note stayed yesterday re request- to dialysis now, no new sxs- home after off dogoxin SANDEEP YANG MD January 01, 2017 07:42
[2017-01-01] MEDS: CALCIUM ACETATE 667 MG CAPSULE PO SCH ×2 (08:00→12:07)
[2017-01-01] MEDS ORDERED: IV NORMAL SALINE 1000ML BAG 1,000 ML IV PRN ×2 (08:36)
[2017-01-01] MEDS ORDERED: ALBUMIN HUMAN 25% 200 ML IV PRN (08:45)
[2017-01-01] MEDS ORDERED: DIALYSIS PATIENT. MC PRN (08:45)
[2017-01-01 09:00] VITALS: BP 114/56
[2017-01-01] MEDS: PARoxetine 20 MG TABLET PO SCH (09:00)
[2017-01-01] MEDS: FOLIC/VIT B COMP W-C (RENAL) TABLET. PO SCH (09:00)
[2017-01-01] MEDS: ALLOPURINOL 100 MG TABLET. PO SCH (09:00)
[2017-01-01] MEDS: RANOLAZINE 500 MG TAB.ER.12H PO SCH (09:00)
[2017-01-01] MEDS: ASPIRIN CHEWABLE 81 MG TABLET. PO SCH (09:00)
[2017-01-01] MEDS: GABAPENTIN 100 MG CAPSULE. PO SCH (09:00)
--- NOTE | 2017-01-01 11:47 | PDOC ---
Renal-Progress Notes Subjective Notes Notes NONE History of Present Illness Hx of present illness STABLE Vitals Vitals Vital Signs Date Time Temp Pulse Resp B/P (MAP) Pulse Ox O2 Delivery O2 Flow Rate FiO2 01/01/17 09:00 67 114/56 01/01/17 07:50 Room Air 01/01/17 06:48 97.4 17 99 2.0 97.4 Weight Weight [ ] I.O. Intake and Output Intake and Output 01/01/17 07:00 Intake Total 1340 ml Balance 1340 ml Intake Oral 1340 ml # Voids 1 # Bowel Movements 2 Labs Labs Laboratory Tests Test 12/31/16 16:38 12/31/16 21:03 01/01/17 06:15 01/01/17 06:58 Glucose (Fingerstick) 167 mg/dL (70-99) 184 mg/dL (70-99) 136 mg/dL (70-99) Sodium Level 138 mmol/L (136-145) Potassium Level 3.9 mmol/L (3.5-5.1) Chloride Level 99 mmol/L (98-107) Carbon Dioxide Level 29 mmol/L (21-32) Anion Gap 10 (6-14) Blood Urea Nitrogen 34 mg/dL (8-26) Creatinine 4.5 mg/dL (0.7-1.3) Estimated GFR (Cockcroft-Gault) 13.1 Glucose Level 140 mg/dL (70-99) Calcium Level 8.5 mg/dL (8.5-10.1) Review of Systems Constitutional: yes: weakness, alert, oriented Ears/Nose/Throat: Yes: no symptom reported Cardiovascular: Yes chest pain Gastrointestional: Yes: constipation Psychiatric/Neurological: Yes: no symptom reported Physical Exam General Appearance: no apparent distress Respiratory: bilateral CTA Heart: S1S2 Abdomen: soft Genitourinary: bladder flat Extremities: no edema, atrophy Neurology: alert Musculoskeletal: Muscle atrophy, Weakness Assessment Assessment IMP ANEMIA ESRD SEVERE CM PLAN HD TODAY UF TO DW TOLERATED UPDATED POOR PROGNOSIS [facility] D/C PLANS FOR TODAY NAVIN ACEVEDO MD January 01, 2017 11:47
== END 2017-01-01 13:50 | disposition home health service (06) | DRG 312 ==
LOC: ER 13:18 → 6 SOUTH 15:50
PROVIDERS: ADMIT Family Medicine; ATTEND Family Medicine
DX: I95.3 Hypotension of hemodialysis (principal); N18.6 End stage renal disease; E43 Unspecified severe protein-calorie malnutrition; I13.2 Hypertensive heart and chronic kidney disease with heart failure and with stage 5 chronic kidney disease, or end stage renal disease; I42.9 Cardiomyopathy, unspecified; T46.0X5A Adverse effect of cardiac-stimulant glycosides and drugs of similar action, initial encounter; D64.9 Anemia, unspecified; E11.22 Type 2 diabetes mellitus with diabetic chronic kidney disease; E11.621 Type 2 diabetes mellitus with foot ulcer; E78.5 Hyperlipidemia, unspecified; I25.10 Atherosclerotic heart disease of native coronary artery without angina pectoris; I27.2 Other secondary pulmonary hypertension; I48.91 Unspecified atrial fibrillation; I50.9 Heart failure, unspecified; J44.9 Chronic obstructive pulmonary disease, unspecified; E21.3 Hyperparathyroidism, unspecified; L98.499 Non-pressure chronic ulcer of skin of other sites with unspecified severity; L97.529 Non-pressure chronic ulcer of other part of left foot with unspecified severity; S09.90XA Unspecified injury of head, initial encounter; Z79.4 Long term (current) use of insulin; Z91.19 Patient's noncompliance with other medical treatment and regimen; Z99.2 Dependence on renal dialysis; Z90.49 Acquired absence of other specified parts of digestive tract; Z80.9 Family history of malignant neoplasm, unspecified; Y92.89 Other specified places as the place of occurrence of the external cause; Z68.21 Body mass index [BMI] 21.0-21.9, adult
CPT/HCPCS: 36415; 70450; 71010; 80047; 80048; 80053; 80162; 82947; 83880; 84484; 85027; 93005; Q0162; 99285-25

== ENCOUNTER 2017-01-18 13:16 | Inpatient (IN) | payer MEDICARE, OTHER ==
[~2017-01-18] VITALS: Ht 167.6 cm; Wt 76.7 kg
[~2017-01-18 13:16] MED LIST changes: -OXYC-328 PO
[2017-01-18 15:00] VITALS: BP 109/60
[2017-01-18] MEDS ORDERED: VANCOMYCIN 1 GM in IV NORMAL SALINE 250ML 250 ML IV ONE (17:00)
[2017-01-18] MEDS: fentaNYL PF VIAL 100 MCG/2 ML VIAL IV PRN ×2 (17:19→21:58)
[2017-01-18 17:50] LABS: BASO # 0.1 x10^3/uL (0.0-0.2); BASO % 1 % (0-3); EOS % 0 % (0-3); HEMATOCRIT 40.5 % (39.0-53.0); LYMPH % 11 % (24-48); MEAN CORPUSCULAR HEMOGLOBIN 31 pg (25-35); MEAN CORPUSCULAR HGB CONC 32 g/dL (31-37); MEAN CORPUSCULAR VOLUME 98 fL (79-100); MONO % 6 % (0-9); NEUT % 82 % (31-73); PLATELET COUNT 164 x10^3/uL (140-400); RED BLOOD COUNT 4.14 x10^6/uL (4.30-5.70); RED CELL DISTRIBUTION WIDTH 17.6 % (11.5-14.5); WHITE BLOOD COUNT 9.6 x10^3/uL (4.0-11.0)
[2017-01-18 18:05] LABS: ALBUMIN 2.5 g/dL (3.4-5.0); ALBUMIN/GLOBULIN RATIO 0.7 (1.0-1.7); CALCIUM 8.4 mg/dL (8.5-10.1); CREATININE 3.3 mg/dL (0.7-1.3); GFR 18.7; POTASSIUM 3.4 mmol/L (3.5-5.1); TOTAL BILIRUBIN 1.2 mg/dL (0.2-1.0); TOTAL PROTEIN 6.3 g/dL (6.4-8.2)
[2017-01-18] MEDS: PIPERACILLIN/TAZOBACTAM 2.25 GM in IV NORMAL SALINE 50ML 50 ML IV SCH ×2 (18:18→23:44)
[2017-01-18] MEDS ORDERED: OXYC-328 PO (18:44)
[2017-01-18 19:00] VITALS: BP 121/63
[2017-01-18] MEDS ORDERED: NITROGLYCERIN SUBLINGUAL 0.4 MG BOTTLE OF 25. SL PRN (20:00)
[2017-01-18] MEDS: FAMOTIDINE 20 MG TABLET. PO SCH (20:44)
[2017-01-18] MEDS: GABAPENTIN 100 MG CAPSULE. PO SCH (20:44)
[2017-01-18] MEDS: TAMSULOSIN 0.4 MG CAP.ER.24H. PO SCH (20:44)
[2017-01-18] MEDS: oxyCODONE/APAP 10/325 1 TAB TABLET PO PRN (20:44)
[2017-01-18] MEDS: ALBUTEROL SULFATE 2.5 MG/3 ML NEBU. NEB SCH (21:05)
[2017-01-18 23:00] VITALS: BP 117/40
[2017-01-19] MEDS: oxyCODONE/APAP 10/325 1 TAB TABLET PO PRN ×4 (02:25→19:41)
[2017-01-19 03:00] VITALS: BP 112/57
[2017-01-19] MEDS: fentaNYL PF VIAL 100 MCG/2 ML VIAL IV PRN ×5 (04:54→16:53)
[2017-01-19] MEDS: PIPERACILLIN/TAZOBACTAM 2.25 GM in IV NORMAL SALINE 50ML 50 ML IV SCH (05:40)
[2017-01-19 07:00] VITALS: BP 109/59
[2017-01-19] MEDS: ALBUTEROL SULFATE 2.5 MG/3 ML NEBU. NEB SCH ×4 (07:20→19:46)
--- NOTE | 2017-01-19 08:19 | PDOC ---
Provider Note Provider Note [id number] SANDEEP YANG MD Jan 19, 2017 08:19
[2017-01-19] MEDS: RANOLAZINE 500 MG TAB.ER.12H PO SCH (08:26)
[2017-01-19] MEDS: FOLIC/VIT B COMP W-C (RENAL) TABLET. PO SCH (08:27)
[2017-01-19] MEDS: GABAPENTIN 100 MG CAPSULE. PO SCH ×2 (08:28→20:45)
[2017-01-19] MEDS: ALLOPURINOL 100 MG TABLET. PO SCH (08:28)
[2017-01-19] MEDS: PARoxetine 20 MG TABLET PO SCH (08:28)
[2017-01-19] MEDS: ASPIRIN CHEWABLE 81 MG TABLET. PO SCH (08:28)
[2017-01-19] MEDS: CALCIUM ACETATE 667 MG CAPSULE PO SCH ×3 (08:36→16:53)
--- NOTE | 2017-01-19 08:38 | HP ---
ADMIT DATE: 01/18/2017 CHIEF COMPLAINT: Poorly healing right foot ulcer. HISTORY OF PRESENT ILLNESS: A 66-year-old white male, type 2 diabetic with known peripheral arterial disease and ischemic cardiomyopathy, has also had end-stage renal disease and has been on dialysis now for several months. He has had progressive weight loss and cachexia and chronic pain in both feet due to poorly healing wounds due to peripheral arterial disease. Wound care saw him on the day of admission and advised admission for infection and progressive ischemic problems. PAST MEDICAL HISTORY: Known cardiomyopathy. MEDICATIONS: Multiple medications listed per the chart. Dialysis with Dr. Kuo. ALLERGIES: No drug allergies. SOCIAL HISTORY: Nonsmoker, , nondrinker, not physically active, not employed. FAMILY HISTORY: Unremarkable. REVIEW OF SYSTEMS: No other known problems. OBJECTIVE: ENT: All within normal limits. NECK: No carotid bruits, nodes or masses. LUNGS: Clear. CARDIOVASCULAR: Regular rate. Heart tones are distant. No murmur. ABDOMEN: Soft and benign, soft bruits in both femoral arteries. EXTREMITIES: The feet are ischemic in appearance with no palpable pulses, cool and dusky and cyanotic with open wounds on the lateral aspects of both feet. Sensation is unfortunately intact in both feet. Motor and sensory and cranial nerves otherwise normal. ASSESSMENT: Severe peripheral arterial disease with ischemic ulcers in both feet. This is complicated by diabetes, end-stage renal disease and cardiomyopathy with prior coronary artery disease. PLAN: Cultures, vancomycin and Zosyn pending results. X-ray of the foot to look for osteomyelitis, but appears to need some sort of vascular intervention to have any chance of healing either surgical or nonsurgical wounds that are present. He is a DNR by choice. SANDEEP YANG MD DR: NIKOLAI/macho JOB#: [id number] / [id number]
[2017-01-19] MEDS ORDERED: ALLOPURINOL 100 MG TABLET. PO SCH (09:00)
[2017-01-19] MEDS ORDERED: POLYETHYLENE GLYCOL 3350 17 GM PACKET. PO PRN (09:00)
--- NOTE | 2017-01-19 09:27 | PDOC ---
Infectious Disease Note ROS ROS GEN: Denies fevers, chills, sweats HEENT: Denies blurred vision, sore throat CV: Denies chest pain RESP: Denies shortness of air, cough GI: Denies n/v/d NEURO: Denies confusion, dizziness MSK: Denies weakness, joint pain/swelling Vital Sign Vital Signs Vital Signs Date Time Temp Pulse Resp B/P (MAP) Pulse Ox O2 Delivery O2 Flow Rate FiO2 01/19/17 08:27 Nasal Cannula 2.0 01/19/17 08:26 68 109/59 01/19/17 07:00 97.7 18 99 97.7 Physical Exam PHYSICAL EXAM GENERAL: NAD, Alert HEENT: PERRL, OC/OP NECK: Supple, no JVD, no LN LUNGS: Clear HEART: S1S2, no gallop, no murmur ABD: Soft, NT, no organomegaly, no rebound EXT: No edema, no cyanosis 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, oriented x 3, no focal neurologic deficit SKIN: No rash IV: ok Labs Lab Laboratory Tests Test 01/18/17 14:28 01/18/17 16:47 01/18/17 17:35 Glucose (Fingerstick) 131 mg/dL (70-99) 114 mg/dL (70-99) White Blood Count 9.6 x10^3/uL (4.0-11.0) Red Blood Count 4.14 x10^6/uL (4.30-5.70) Hemoglobin 13.0 g/dL (13.0-17.5) Hematocrit 40.5 % (39.0-53.0) Mean Corpuscular Volume 98 fL (79-100) Mean Corpuscular Hemoglobin 31 pg (25-35) Mean Corpuscular Hemoglobin Concent 32 g/dL (31-37) Red Cell Distribution Width 17.6 % (11.5-14.5) Platelet Count 164 x10^3/uL (140-400) Neutrophils (%) (Auto) 82 % (31-73) Lymphocytes (%) (Auto) 11 % (24-48) Monocytes (%) (Auto) 6 % (0-9) Eosinophils (%) (Auto) 0 % (0-3) Basophils (%) (Auto) 1 % (0-3) Neutrophils # (Auto) 7.9 x10^3uL (1.8-7.7) Lymphocytes # (Auto) 1.0 x10^3/uL (1.0-4.8) Monocytes # (Auto) 0.5 x10^3/uL (0.0-1.1) Eosinophils # (Auto) 0.0 x10^3/uL (0.0-0.7) Basophils # (Auto) 0.1 x10^3/uL (0.0-0.2) Sodium Level 139 mmol/L (136-145) Potassium Level 3.4 mmol/L (3.5-5.1) Chloride Level 97 mmol/L (98-107) Carbon Dioxide Level 33 mmol/L (21-32) Anion Gap 9 (6-14) Blood Urea Nitrogen 20 mg/dL (8-26) Creatinine 3.3 mg/dL (0.7-1.3) Estimated GFR (Cockcroft-Gault) 18.7 BUN/Creatinine Ratio 6 (6-20) Glucose Level 134 mg/dL (70-99) Calcium Level 8.4 mg/dL (8.5-10.1) Total Bilirubin 1.2 mg/dL (0.2-1.0) Aspartate Amino Transf (AST/SGOT) 15 U/L (15-37) Alanine Aminotransferase (ALT/SGPT) 13 U/L (16-63) Alkaline Phosphatase 150 U/L (46-116) Total Protein 6.3 g/dL (6.4-8.2) Albumin 2.5 g/dL (3.4-5.0) Albumin/Globulin Ratio 0.7 (1.0-1.7) Objective Assessment Right foot wound - osteomyelitis/yeast Thrush PAD CKD - on HD H/o C-diff Plan Plan of Care Discont Zosyn/ begin Meroepem Cont Vanc Fluconazole/Nystatin Need Vascular eval will need surgery - potential amputation of Right 5 th toe F/u labs # [id number] ZACHARY MOSQUERA MD Jan 19, 2017 09:27
--- NOTE | 2017-01-19 09:36 | ACF ---
Admission Forms Criteria SKIN AND WOUND CARE Clinical Indications for Inpatient Care (Place 'X' for any and all applicable criteria): Ongoing inpatient care may be indicated for pressure, venous, arterial, or neuropathic ulcers, with ANY ONE of the following (2)(3)(8)(9)(21)(25): [X]I. Need for ANY ONE of the following(26) [ ]a) Pressure ulcer closure procedures [ ]b) Skin grafting [ ]c) Wound debridement [ ]d) Dressing change under general anesthesia [ ]e) Arterial revascularization procedures(19) (Also use Aortofemoral or Aortoiliac Bypass or Femoral Popliteal Bypass Criteria as appropriate) [ ]f) Amputation (Also use Foot: Transmetatarsal Amputation or Knee: Amputation Above or Below Knee Criteria as appropriate) [ ]g) Diverting colostomy [X]h) Other significant surgical treatment [ ]II. Infection requiring inpatient care as indicated by ALL of the following( 27) [ ]a) ANY ONE of the following signs of infection: [ ]i) Poorly approximated incision line. [ ]ii) Excessive drainage [ ]iii) Foul odor [ ]iv) Pus [ ]v) Increased redness [ ]vi) Breakdown in tissue after suture removal [ ]vii) Fever [ ]b) ANY ONE of the following findings: [ ]i) Mental status changes [ ]ii) Dehydration [ ]iii) Bacteremia [ ]iv) Perineal infection [ ]v) Hemodynamic instability [ ]vi) High-risk conditions, such as ANY ONE of the following: [ ]1) Poorly controlled diabetes [ ]2) Cirrhosis [ ]3) Neutropenia [ ]4) Asplenia [ ]5) HIV infection [ ]6) Immunosuppression Extended stay beyond goal length of stay for primary condition may be needed until ALL of the following are present(1)(2)(13)(21)(27): [ ]a) Tissue necrosis absent or treatment plan manageable at lower level of care [ ]b) Fistulas, tunneling, or underlying deep tissue infection absent or treated [ ]c) Purulence and tissue breakdown absent or improved [ ]d) Ulcer surgical repair absent or healing without complications [ ]e) Wound infection absent or manageable at lower level of care [ ]f) Comorbidities absent or manageable at lower level of care The original [facility] [employer] content created by [employer] has been revised. The portions of the content which have been revised are identified through the use of italic text or in bold, and [facility] has neither reviewed nor approved the modified material. All other unmodified content is copyright [facility]. Please see references footnoted in the original [facility] edition 2016 Admission Criteria Met?: Yes SEFERINO HOOKS Jan 19, 2017 09:36
--- NOTE | 2017-01-19 09:43 | PDOC ---
Provider Note Provider Note IR Note: Mahamed is a 66 YO male with multiple CV risk factors, with O2 dependent COPD, and with ESRD on HD. 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 Now with nonhealing right foot wound. Have requested lower extremity arterial duplex Doppler. Coumadin for Afib has been held---will recheck INR. Tentatively plan diagnostic lower extremity arteriogram +/- intervention tomorrow---will coordinate with HD. DIANDRA WATTERS MD Jan 19, 2017 09:43
[2017-01-19] MEDS ORDERED: VANCOMYCIN 1.75 GM in IV NORMAL SALINE 500ML BAG 500 ML IV ONE (10:00)
[2017-01-19] MEDS: FLUCONAZOLE 100 MG TABLET. PO SCH (10:32)
[2017-01-19] MEDS: MEROPENEM 500 MG in IV NORMAL SALINE 50ML 50 ML IV SCH (10:32)
[2017-01-19 10:55] VITALS: BP 99/50
--- NOTE | 2017-01-19 11:05 | RAD ---
EXAM: Bilateral lower extremity arterial Doppler. HISTORY: Peripheral arterial disease. Lower history ulcers. COMPARISON: None. FINDINGS: Grayscale and Doppler analysis of the lower extremity arterial systems was performed. On the right, there are biphasic waveforms through the popliteal artery. There are monophasic waveforms within the trifurcation vessels. They remain patent at the ankle. On the left, there are biphasic waveforms throughout the lower extremity. The dorsalis previous remains patent. There are no clearly focally elevated velocities bilaterally. IMPRESSION: 1. Findings consistent with mildly flow limiting stenosis proximal to this field of view bilaterally. 2. Significantly flow limiting stenosis within the right trifurcation vessels.
[2017-01-19 11:06] LABS: INR 1.4 (0.8-1.1); PROTHROMBIN TIME PATIENT 15.9 SEC (11.7-14.0)
--- NOTE | 2017-01-19 11:07 | PDOC2 ---
CONSULT Date of Consult Date of Consult DATE: 01/19/17 TIME: 11:03 Reason for Consult Reason for Consult: ESRD Referring Physician Referring Physician: CELIA Identification/Chief Complaint Chief Complaint LE PAIN Source Source: Chart review, Patient History of Present Illness Reason for Visit: THIS IS A 66 YR OLD ADMITTED WITH LE PAIN AND NON HEALING LE WOUNDS. HE HAS A HX OF PAD. HE IS UNDERGOING EVALUATION FOR THIS. HE HAS ESRD AND IS ON HD ON MWF Past Medical History Cardiovascular: AFIB, CAD, CHF, HTN, Valve insufficiency, Pulmonary hypertension Heme/Onc: Cancer, Iron deficiency Anemia Musculoskeletal: Muscle atrophy, Weakness Renal/: Chronic renal failure Endocrine: Hyperparathyroidism Past Surgical History Past Surgical History: Cholecystectomy, Cataract Removal, Colon Resection, Other Family History Family History: Cancer Social History ALCOHOL: none Drugs: None Lives: with Family Current Medications Current Medications Current Medications Vancomycin HCl 1 gm/Sodium Chloride 250 ml @ 250 mls/hr 1X ONCE IV Last administered on 01/18/17 21:29; Start 01/18/17 at 17:00; Stop 01/18/17 at 17:59 ; Status DC Piperacillin Sod/ Tazobactam Sod 2.25 gm/Sodium Chloride 50 ml @ 100 mls/hr Q8HRS IV Last administered on 01/19/17 05:40; Start 01/18/17 at 17:00; Stop at 09:28; Status DC Fentanyl Citrate (Fentanyl 2ml Vial) 50 mcg PRN Q2HR PRN IV PAIN Last administered on 01/19/17 10:32; Start 01/18/17 at 16:30 Allopurinol (Zyloprim) 200 mg DAILY PO ; Start 01/19/17 at 09:00; Stop 01/19/17 at 09:00; Status DC Aspirin (Children'S Aspirin) 81 mg DAILY PO Last administered on 01/19/17 08: 28; Start 01/19/17 at 09:00 Calcium Acetate (Phoslo) 667 mg TIDWMEALS PO Last administered on 01/19/17 08: 36; Start 01/19/17 at 08:00 Famotidine (Pepcid) 20 mg QHS PO Last administered on 01/18/17 20:44; Start at 21:00 Vitamin B Complex/ Vitamin C (Mago-Mouna) 1 tab DAILY PO Last administered on 08:27; Start 01/19/17 at 09:00 Gabapentin (Neurontin) 100 mg BID PO Last administered on 01/19/17 08:28; Start 01/18/17 at 21:00 Nitroglycerin (Nitrostat) 0.4 mg PRN Q5MIN PRN SL CHEST PAIN; Start 01/18/17 at 20:00 Oxycodone/ Acetaminophen (Percocet 10/325) 1 tab PRN Q4HRS PRN PO PAIN Last administered on 01/19/17 08:27; Start 01/18/17 at 20:00 Paroxetine HCl (Paxil) 20 mg DAILY PO Last administered on 01/19/17 08:28; Start 01/19/17 at 09:00 Polyethylene Glycol (miraLAX PACKET) 17 gm PRN BID PRN PO CONSTIPATION; Start 01/19/17 at 09:00 Ranolazine (Ranexa) 500 mg DAILY PO Last administered on 01/19/17 08:26; Start 01/19/17 at 09:00 Tamsulosin HCl (Flomax) 0.4 mg HS PO Last administered on 01/18/17 20:44; Start 01/18/17 at 21:00 Albuterol Sulfate (Ventolin Neb Soln) 2.5 mg RTQID NEB Last administered on 07:20; Start 01/18/17 at 20:00 Allopurinol (Zyloprim) 100 mg DAILY PO Last administered on 01/19/17 08:28; Start 01/19/17 at 09:00 Fluconazole (Diflucan) 100 mg DAILY PO Last administered on 01/19/17 10:32; Start 01/19/17 at 10:00 Nystatin 5 ml [id number] SWSW ; Start 01/19/17 at 13:00 Vancomycin HCl (Vanco Per Pharmacy) 1 each PRN DAILY PRN MC SEE COMMENTS; Start 01/19/17 at 09:30 Meropenem 500 mg/ Sodium Chloride 50 ml @ 100 mls/hr DAILY IV Last administered on 01/19/17 10:32; Start 01/19/17 at 09:30 Vancomycin HCl 1.75 gm/Sodium Chloride 500 ml @ 250 mls/hr 1X ONCE IV ; Start 01/19/17 at 10:00; Stop 01/19/17 at 11:59 Active Scripts Active Reported Percocet 10-325 Mg Tablet (Oxycodone/Acetaminophen) 1 Each Tablet 1 Tab PO PRN Q4HRS PRN Anoro Ellipta 62.5-25 Mcg Inh (Umeclidinium Brm/Vilanterol Tr) 1 Each Disk.w.dev 1 Each IH Paxil (Paroxetine Hcl) 20 Mg Tablet 1 Tab PO DAILY Gabapentin 100 Mg Capsule 100 Mg PO BID Ranexa (Ranolazine) 500 Mg Tab.er.12h 1 Tab PO DAILY Phoslo (Calcium Acetate) 667 Mg Capsule 667 Mg PO TIDWMEALS Polyethylene Glycol 3350 255 Gm Powder 17 Gm PO DAILY PRN Dialyvite 800 Tablet (Folic Acid/Vitamin B Comp W-C) 0.8 Mg Tablet 0.8 Mg PO DAILY NITROGLYCERIN SubLingual (Nitroglycerin) 0.4 Mg Tab.subl 0.4 Mg SL PRN Allopurinol 300 Mg Tablet 300 Mg PO DAILY Pepcid (Famotidine) 20 Mg Tablet 20 Mg PO QHS Flomax (Tamsulosin Hcl) 0.4 Mg Cap.er.24h 0.4 Mg PO HS Aspirin 81 Mg Tab.chew 81 Mg PO DAILY Allergies Allergies: Coded Allergies: adhesive (Verified Allergy, Severe, STERI STRIPS- PEELING SKIN, 12/29/16) STERI STRIPS ROS General: YES: Fatigue, Malaise, Appetite PSYCHOLOGICAL ROS: YES: Anxiety, Depression Eyes: Yes Decreased vision HEENT: YES: Heacaches Respiratory: YES: Cough Gastrointestinal: Yes Constipation Genitourinary: YES Other (ANURIA) Musculoskeletal: Yes Muscular Weakness, Yes Pain In: (LE BILATERALLY) Neurological: Yes Weakness Skin: Yes Skin Lesion Changes Physical Exam General: Alert, Cooperative HEENT: Atraumatic, PERRLA Lungs: Clear to auscultation Heart: Regular rate, No murmurs Extremities: No edema, Other (POOR CAP REFILL) Neuro: Normal speech, Cranial nerves 3-12 NL Psych/Mental Status: Mental status NL, Mood NL Vitals VITALS Vital Signs Date Time Temp Pulse Resp B/P (MAP) Pulse Ox O2 Delivery O2 Flow Rate FiO2 01/19/17 10:55 97.7 74 18 99/50 (66) 95 Nasal Cannula 2.0 97.7 Labs Labs Laboratory Tests Test 01/18/17 14:28 01/18/17 16:47 01/18/17 17:35 Glucose (Fingerstick) 131 mg/dL (70-99) 114 mg/dL (70-99) White Blood Count 9.6 x10^3/uL (4.0-11.0) Red Blood Count 4.14 x10^6/uL (4.30-5.70) Hemoglobin 13.0 g/dL (13.0-17.5) Hematocrit 40.5 % (39.0-53.0) Mean Corpuscular Volume 98 fL (79-100) Mean Corpuscular Hemoglobin 31 pg (25-35) Mean Corpuscular Hemoglobin Concent 32 g/dL (31-37) Red Cell Distribution Width 17.6 % (11.5-14.5) Platelet Count 164 x10^3/uL (140-400) Neutrophils (%) (Auto) 82 % (31-73) Lymphocytes (%) (Auto) 11 % (24-48) Monocytes (%) (Auto) 6 % (0-9) Eosinophils (%) (Auto) 0 % (0-3) Basophils (%) (Auto) 1 % (0-3) Neutrophils # (Auto) 7.9 x10^3uL (1.8-7.7) Lymphocytes # (Auto) 1.0 x10^3/uL (1.0-4.8) Monocytes # (Auto) 0.5 x10^3/uL (0.0-1.1) Eosinophils # (Auto) 0.0 x10^3/uL (0.0-0.7) Basophils # (Auto) 0.1 x10^3/uL (0.0-0.2) Sodium Level 139 mmol/L (136-145) Potassium Level 3.4 mmol/L (3.5-5.1) Chloride Level 97 mmol/L (98-107) Carbon Dioxide Level 33 mmol/L (21-32) Anion Gap 9 (6-14) Blood Urea Nitrogen 20 mg/dL (8-26) Creatinine 3.3 mg/dL (0.7-1.3) Estimated GFR (Cockcroft-Gault) 18.7 BUN/Creatinine Ratio 6 (6-20) Glucose Level 134 mg/dL (70-99) Calcium Level 8.4 mg/dL (8.5-10.1) Total Bilirubin 1.2 mg/dL (0.2-1.0) Aspartate Amino Transf (AST/SGOT) 15 U/L (15-37) Alanine Aminotransferase (ALT/SGPT) 13 U/L (16-63) Alkaline Phosphatase 150 U/L (46-116) Total Protein 6.3 g/dL (6.4-8.2) Albumin 2.5 g/dL (3.4-5.0) Albumin/Globulin Ratio 0.7 (1.0-1.7) Laboratory Tests Test 01/18/17 14:28 01/18/17 16:47 01/18/17 17:35 Glucose (Fingerstick) 131 mg/dL (70-99) 114 mg/dL (70-99) White Blood Count 9.6 x10^3/uL (4.0-11.0) Red Blood Count 4.14 x10^6/uL (4.30-5.70) Hemoglobin 13.0 g/dL (13.0-17.5) Hematocrit 40.5 % (39.0-53.0) Mean Corpuscular Volume 98 fL (79-100) Mean Corpuscular Hemoglobin 31 pg (25-35) Mean Corpuscular Hemoglobin Concent 32 g/dL (31-37) Red Cell Distribution Width 17.6 % (11.5-14.5) Platelet Count 164 x10^3/uL (140-400) Neutrophils (%) (Auto) 82 % (31-73) Lymphocytes (%) (Auto) 11 % (24-48) Monocytes (%) (Auto) 6 % (0-9) Eosinophils (%) (Auto) 0 % (0-3) Basophils (%) (Auto) 1 % (0-3) Neutrophils # (Auto) 7.9 x10^3uL (1.8-7.7) Lymphocytes # (Auto) 1.0 x10^3/uL (1.0-4.8) Monocytes # (Auto) 0.5 x10^3/uL (0.0-1.1) Eosinophils # (Auto) 0.0 x10^3/uL (0.0-0.7) Basophils # (Auto) 0.1 x10^3/uL (0.0-0.2) Sodium Level 139 mmol/L (136-145) Potassium Level 3.4 mmol/L (3.5-5.1) Chloride Level 97 mmol/L (98-107) Carbon Dioxide Level 33 mmol/L (21-32) Anion Gap 9 (6-14) Blood Urea Nitrogen 20 mg/dL (8-26) Creatinine 3.3 mg/dL (0.7-1.3) Estimated GFR (Cockcroft-Gault) 18.7 BUN/Creatinine Ratio 6 (6-20) Glucose Level 134 mg/dL (70-99) Calcium Level 8.4 mg/dL (8.5-10.1) Total Bilirubin 1.2 mg/dL (0.2-1.0) Aspartate Amino Transf (AST/SGOT) 15 U/L (15-37) Alanine Aminotransferase (ALT/SGPT) 13 U/L (16-63) Alkaline Phosphatase 150 U/L (46-116) Total Protein 6.3 g/dL (6.4-8.2) Albumin 2.5 g/dL (3.4-5.0) Albumin/Globulin Ratio 0.7 (1.0-1.7) Assessment/Plan Assessment/Plan IMP ESRD ANEMIA PAD MILD HYPOKALEMIA NON HEALING LE WOUNDS PLAN HD TOMORROW ARANESP LE DOPPLER TODAY LE ARTERIOGRAM TOMORROW D/W NAVIN CARL MD Jan 19, 2017 11:07
--- NOTE | 2017-01-19 11:35 | PDOC ---
Provider Note Provider Note Vascular Consult dictated Imp: Limb threatening ischemia vinicio. Rt. >> Lt. with ulcer and expose bone lateral rt 5th toe Plan: Aortogram and runoff attn. rt. leg Will follow WARD ELLIOTT MD Jan 19, 2017 11:35
[2017-01-19] MEDS: NYSTATIN 100,000 UNITS/ML 5 ML ORAL.SUSP. SWSW SCH ×3 (12:58→20:46)
[2017-01-19] MEDS: VANCOMYCIN PER PHARMACY MC PRN (14:39)
[2017-01-19 14:46] VITALS: BP 102/58
--- NOTE | 2017-01-19 17:11 | RAD ---
Three-view bilateral feet radiographs 01/19/2017 Clinical history: Bilateral foot ulcers. AP, lateral and oblique digital radiographs of both feet were obtained. There is diffuse osteopenia the visualized bony structures. No fracture or dislocation of either foot is seen. Mild to moderate degenerative changes are seen throughout the interphalangeal joints, MTP joints, tarsometatarsal joints, mid tarsal joints, subtalar and talonavicular joints of both feet. Extensive arterial calcification is seen throughout both feet. Moderate enthesophyte formation is seen involving the posterior calcaneus bilaterally. There is no radiographic evidence of osteomyelitis involving either foot. Impression: Degenerative changes are seen throughout both feet as outlined above. There is no radiographic evidence of osteomyelitis involving either foot.
[2017-01-19 19:00] VITALS: BP 104/54
[2017-01-19] MEDS: TAMSULOSIN 0.4 MG CAP.ER.24H. PO SCH (20:45)
[2017-01-19] MEDS: FAMOTIDINE 20 MG TABLET. PO SCH (20:45)
[2017-01-19 22:44] VITALS: BP 109/60
--- NOTE | 2017-01-20 04:49 | CONS ---
DATE OF CONSULTATION: 01/19/2017 ROOM: 563 REQUESTING PHYSICIAN: Dr. Calzada. REASON FOR CONSULTATION: Infected right foot. HISTORY OF PRESENT ILLNESS: The patient is a pleasant 66-year-old gentleman with a history of chronic kidney disease, on hemodialysis every Wednesday, Wednesday and Wednesday. He has a history of previous colon cancer with resection and also history of C. diff colitis. He states he has been dealing with a wound on his left lower extremity since approximately May, but most recently over the past months developed an ulceration on the outside aspect of his right foot. He states it started as a small wart-like area, but it increased in size, but over the past week it worsened and quickly accelerated over the past 2 days and hence he has been admitted. He states he has not taken any antibiotics for close to a month. He cannot remember what it was that he took last. He has not been having any fevers or chills or sweats. [facility] He has no sore throat, although is a little dry. He does have a history of thrush. He has no gross shortness of air. He is on oxygen chronically. He has no nausea, vomiting or diarrhea. He does have some chronic knots ____ his abdomen from previous injections. He has been admitted, placed on vancomycin x 1 and also placed on Zosyn. PAST MEDICAL HISTORY: Positive for colon cancer, coronary artery disease, cardiomyopathy, congestive heart failure, chronic kidney disease, on hemodialysis, retroperitoneal mass, atrial fibrillation, valve insufficiency, peripheral arterial disease, pulmonary hypertension, anemia, history of C. diff. He does have a history of Enterobacter in his wounds resistant to Augmentin, cefazolin, cefuroxime back in August, most recently in November, the same prototype. PAST SURGICAL HISTORY: Positive for a pacemaker placement, colon cancer resection with the abdominal mass as well as nephrectomy, cholecystectomy, cardiac stents, angioplasty to his lower extremities, wound debridements, cataract surgery. REVIEW OF SYSTEMS: Otherwise negative except as mentioned above. SOCIAL HISTORY: Positive for history of tobacco use in the past. He is . No alcohol. FAMILY HISTORY: Positive for lung and colon cancer. ALLERGIES: LISTED ADHESIVE. CURRENT MEDICATIONS: Include a dose of vancomycin. He is on Zosyn. He is on allopurinol, albuterol, Pepcid, Neurontin, Paxil, Ranexa and Flomax. PHYSICAL EXAMINATION: VITAL SIGNS: He has been afebrile. Temperature is 97.7, pulse ____, respirations 18, blood pressure 109/59. He is satting 99% on 2 liters. CONSTITUTIONAL: He is pleasant. He is in no acute distress. He is lying in bed. He is on nasal cannula oxygen. HEENT: Pupils are status post cataract surgery. Oral cavity, pharynx is dry. He has some thrush. NECK: Supple, no JVD. LUNGS: Clear to auscultation bilaterally. HEART: S1, S2. Pacemaker without signs of complications. ABDOMEN: Soft, nontender, nondistended with decreased bowel sounds, positive, but he has got some knots in the anterior aspect of his abdomen. EXTREMITIES: No clubbing, cyanosis. He has some scaling of his feet bilaterally. He has got decreased pulses. There is some dependent rubor in the lateral aspect of his right fifth toe. He has got exposed wound with palpable bone. The plantar aspect of his left fifth metatarsal head has a wound that is fairly clean. He has a wound on the lateral malleolus that is scabbed over. He also has an insufficiency wound on the posterolateral aspect of his left leg, approximately 3-4 cm in size. SKIN: Otherwise warm to touch. He has a fistula in his right upper extremity without signs of complications. Again, his pacemaker is without signs of complications. NEUROLOGIC: He answers questions appropriately, moves all extremities. PSYCHIATRIC: Affect is appropriate. LABORATORY DATA: White count of 9.6, hemoglobin 13, platelets 164 with 82 neutrophils, glucose 134, AST 15, ALT 13, alk phos 130. C. diff was positive on the 04 of October. No recent imaging, although he did have an abdominal angiography on the 20 of November. He had a critical stenosis of the left tibioperoneal trunk and underwent angioplasty at that time ____ single vessel in the posterior tibial area that was patent. IMPRESSION: 1. Right foot wound with osteomyelitis and yeast. 2. Thrush. 3. Peripheral arterial disease. 4. Chronic kidney disease, on hemodialysis. 5. History of Clostridium difficile. RECOMMENDATIONS: Given his previous Enterobacter, we will discontinue the Zosyn, begin meropenem. We will continue his vancomycin. We will add fluconazole for his yeast on his feet as well as for his thrush and continue his nystatin. He will need vascular evaluation because he will need some type of surgery and will need evaluation of his arteries. He may have failed angioplasty previously and he will need potential amputation of the right fifth toe. We will follow up on labs. Thank you for allowing me to participate in this patient's care. If you have any questions, please do not hesitate to contact me. ZACHARY MOSQUERA MD DR: CINDY/macho JOB#: [id number] / [id number]
[2017-01-20 05:48] LABS: CALCIUM 8.2 mg/dL (8.5-10.1); CREATININE 4.5 mg/dL (0.7-1.3); GFR 13.1; POTASSIUM 3.5 mmol/L (3.5-5.1)
--- NOTE | 2017-01-20 06:48 | CONS ---
DATE OF CONSULTATION: 01/19/2017 REQUESTING PHYSICIAN: Dr. Mario Calzada. REASON FOR CONSULTATION: Lower extremity peripheral vascular disease. HISTORY OF PRESENT ILLNESS: This is a 66-year-old male with chronic renal failure, on dialysis ____ incidentally the fistula has been ballooned a couple of times slightly at the access center for reasons the did not know. The fistula was placed a couple of years ago by ____. The patient now presents with bilateral leg ulcers. He has had a recent arteriogram and an angioplasty of tibial vessels on the left leg. He now presents with exposed bone and an ulcer on the lateral aspect of the right fifth toe. PAST MEDICAL HISTORY: The patient has longstanding cardiomyopathy, coronary artery bypass done remotely with vein harvested from the left leg. He has chronic renal failure, again on dialysis through a right upper arm fistula. ALLERGIES: None known. MEDICATIONS: See his reconciliation list. PHYSICAL EXAMINATION: GENERAL: Pleasant elderly male in some distress from the leg pain. VASCULAR: 2+ carotids, strong pulse over his right upper arm fistula, which looks to be a good fistula and a very large right upper arm vein. 1+ left brachial pulse. He has had some fistulas on that side as well remotely, but they are not functioning. CARDIOVASCULAR: Regular heart rate, well-healed median sternotomy. LUNGS: Nonlabored respirations. ABDOMEN: Soft. EXTREMITIES: Strong femoral pulses bilaterally, but absent popliteal pedal pulse on the right leg, 1+ popliteal on the left leg. He has got some ulcers on the lateral aspect of the left lower leg and superficial ones on his toes. On the right leg, he has got an ulcer with exposed bone on the lateral aspect of the right fifth toe. IMPRESSION: 1. Limb-threatening ischemia, right lower extremity. 2. Chronic renal failure, on dialysis. 3. Cardiac disease, cardiomyopathy, status post remote bypass. PLAN: Aortogram and runoff through a left femoral approach for possible right leg angioplasty. Dr. Santiago, I ran into him and he is agreeable to do that and he is scheduled for tomorrow. We will follow. Thanks for allowing us to see him. WARD ELLIOTT MD DR: KIRA/macho JOB#: [id number] / [id number]
[2017-01-20 07:00] VITALS: BP 105/48
--- NOTE | 2017-01-20 07:03 | PDOC ---
Provider Note Provider Note AF VSS awake and alert right lateral foot ulcer over 5th metatarsal head, left lateral ankle ulcer, left lateral foot ulcer over 5th metatarsal head, ischemic hyperemia of the right and left foot previous left leg scars from old vein harvest for his heart right arm AV access A/P 66 year old male with bilateral lower extremity severe peripheral artery disease with rest pain and bilateral foot ulcers - plan an angiogram with bilateral lower extremity runoff and intervention with Dr. Santiago today - ESRD on dialysis - antibiotics per ID MATEUS ALVARADO MD Jan 20, 2017 07:03
[2017-01-20] MEDS: ALBUTEROL SULFATE 2.5 MG/3 ML NEBU. NEB SCH ×4 (07:04→19:44)
[2017-01-20] MEDS: CALCIUM ACETATE 667 MG CAPSULE PO SCH ×3 (08:00→16:55)
[2017-01-20] MEDS: MEROPENEM 500 MG in IV NORMAL SALINE 50ML 50 ML IV SCH (08:25)
--- NOTE | 2017-01-20 08:26 | PDOC ---
Provider Note Provider Note down for arteriogram R leg, labs ok- 2 antibiotics re culture- good pain ciontrol w/ opioids SANDEEP YANG MD Jan 20, 2017 08:26
[2017-01-20] MEDS: PARoxetine 20 MG TABLET PO SCH (08:30)
[2017-01-20] MEDS: RANOLAZINE 500 MG TAB.ER.12H PO SCH (08:30)
[2017-01-20] MEDS: ASPIRIN CHEWABLE 81 MG TABLET. PO SCH (08:30)
[2017-01-20] MEDS: FLUCONAZOLE 100 MG TABLET. PO SCH (08:30)
[2017-01-20] MEDS: GABAPENTIN 100 MG CAPSULE. PO SCH ×2 (08:30→20:48)
--- NOTE | 2017-01-20 08:30 | PDOC ---
Infectious Disease Note Subjective Subjective Has some mild pain Mouth dry and a little sticky ROS ROS GEN: Denies fevers, chills, sweats HEENT: Denies blurred vision CV: Denies chest pain RESP: Denies shortness of air, cough GI: Denies n/v/d NEURO: Denies confusion, dizziness MSK: Denies weakness, joint pain/swelling Vital Sign Vital Signs Vital Signs Date Time Temp Pulse Resp B/P (MAP) Pulse Ox O2 Delivery O2 Flow Rate FiO2 01/20/17 07:05 96 Nasal Cannula 2.0 01/20/17 07:00 97.7 85 18 105/48 (67) 97.7 Physical Exam PHYSICAL EXAM GENERAL: NAD, Alert HEENT: PERRL, OC/OP- dry NECK: Supple, no JVD, no LN LUNGS: Clear HEART: S1S2, no gallop, no murmur ABD: Soft, NT, no organomegaly, no rebound EXT: No edema, no cyanosis. Hyperemic. + Yeast - wounds dressed TRAINING FACILITATOR: Alert, oriented x 3, no focal neurologic deficit SKIN: No rash IV: ok. Fistula Labs Lab Laboratory Tests Test 01/19/17 10:30 01/20/17 05:00 Prothrombin Time 15.9 SEC (11.7-14.0) Prothromb Time International Ratio 1.4 (0.8-1.1) Sodium Level 137 mmol/L (136-145) Potassium Level 3.5 mmol/L (3.5-5.1) Chloride Level 98 mmol/L (98-107) Carbon Dioxide Level 30 mmol/L (21-32) Anion Gap 9 (6-14) Blood Urea Nitrogen 30 mg/dL (8-26) Creatinine 4.5 mg/dL (0.7-1.3) Estimated GFR (Cockcroft-Gault) 13.1 Glucose Level 157 mg/dL (70-99) Calcium Level 8.2 mg/dL (8.5-10.1) Objective Assessment Right foot wound - osteomyelitis/yeast Thrush PAD CKD - on HD H/o C-diff Plan Plan of Care Cont Meroepem/Vanc/Fluconazole/Nystatin F/u Aortogram Await further vascular/IR f/u F/u labs ZACHARY MOSQUERA MD Jan 20, 2017 08:30
[2017-01-20] MEDS: NYSTATIN 100,000 UNITS/ML 5 ML ORAL.SUSP. SWSW SCH ×4 (08:31→20:48)
[2017-01-20] MEDS: FOLIC/VIT B COMP W-C (RENAL) TABLET. PO SCH (08:31)
[2017-01-20] MEDS: ALLOPURINOL 100 MG TABLET. PO SCH (08:31)
[2017-01-20] MEDS ORDERED: IODIXANOL 320 MG/ML 100 ML VIAL. ONE (10:23)
[2017-01-20] MEDS ORDERED: IODIXANOL 320MG/ML 50ML VIAL. ONE (10:23)
[2017-01-20] MEDS ORDERED: HEPARIN for ARTERIAL LINE 1,500 ML ONE (10:23)
[2017-01-20] MEDS ORDERED: LIDOCAINE 1% / SOD BICARB 8.4% 20 ML VIAL. IJ ONE ×2 (10:23→12:00)
[2017-01-20] MEDS ORDERED: IOHEXOL 300 MG/ML 100ML VIAL. ONE (10:23)
[2017-01-20] MEDS: fentaNYL PF VIAL 100 MCG/2 ML VIAL IV PRN (10:37)
[2017-01-20 10:54] VITALS: BP 108/57
--- NOTE | 2017-01-20 11:30 | PDOC ---
Renal-Progress Notes Subjective Notes Notes NO NEW CHANGE History of Present Illness Hx of present illness STABLE Vitals Vitals Vital Signs Date Time Temp Pulse Resp B/P (MAP) Pulse Ox O2 Delivery O2 Flow Rate FiO2 01/20/17 10:54 98.1 122 18 108/57 (74) 93 Nasal Cannula 2.0 98.1 Weight Weight [ ] I.O. Intake and Output Intake and Output 01/20/17 07:00 Intake Total 2000 ml Output Total 0 ml Balance 2000 ml Intake Oral 2000 ml Output Urine Total 0 ml Labs Labs Laboratory Tests Test 01/20/17 05:00 Sodium Level 137 mmol/L (136-145) Potassium Level 3.5 mmol/L (3.5-5.1) Chloride Level 98 mmol/L (98-107) Carbon Dioxide Level 30 mmol/L (21-32) Anion Gap 9 (6-14) Blood Urea Nitrogen 30 mg/dL (8-26) Creatinine 4.5 mg/dL (0.7-1.3) Estimated GFR (Cockcroft-Gault) 13.1 Glucose Level 157 mg/dL (70-99) Calcium Level 8.2 mg/dL (8.5-10.1) Review of Systems Constitutional: yes: alert, oriented Ears/Nose/Throat: Yes: no symptom reported Cardiovascular: Yes no symptom reported Gastrointestional: Yes: no symptom reported Musculoskeletal: Yes: no symptom reported Skin: Yes no symptom reported Physical Exam General Appearance: no apparent distress Respiratory: bilateral CTA Heart: S1S2 Abdomen: soft, bowel sounds present Extremities: pulses present Musculoskeletal: Muscle atrophy, Weakness Assessment Assessment IMP ESRD ANEMIA CAD PAD PLAN LE ARTERIOGRAM TODAY HD TODAY UF TO NAVIN BARNARD MD Jan 20, 2017 11:30
--- NOTE | 2017-01-20 11:32 | PDOC ---
MODERATE SEDATION ASSESSMENT RISKS/ALTERNATIVES Risks/Alternatives Risks and alternatives of this type of sedation and procedure discussed with: RISK/ALTERNATIVES: Patient H & P ON CHART H & P H & P on chart and reviewed for co-morbid conditions and appropriate labs. H&P ON CHART: Yes STATUS PREG STATUS ASSESSED: N/A MEDS/ALLERGIES REVIEWED Meds/Allergies Reviewed Medications and Allergies including time and route of recently administered narcotics and sedatives. MEDS/ALLERGIES REVIEWED: Yes ASA RATING ASA RATING: III AIRWAY ASSESSMENT Airway Assessment Airway patency, oral function limitations, presence of caps, crowns, dentures, partials, and ability to extend neck assessed. AIRWAY ASSESSMENT: Yes MALLAMPATI SCORE MALLAMPATI SCORE: II PRE-SEDATION ASSESSMENT PRE-SEDATION ASSESSMENT: Yes DIANDRA WATTERS MD Jan 20, 2017 11:32
[2017-01-20] MEDS ORDERED: MIDAZOLAM HCL/PF 5 MG/5 ML VIAL. ONE (11:41)
[2017-01-20] MEDS ORDERED: HEPARIN for IV BOLUS 10,000 UNIT/10 ML VIAL. ONE (11:41)
[2017-01-20] MEDS ORDERED: fentaNYL PF VIAL 250 MCG/5 ML VIAL ONE (11:41)
[2017-01-20] MEDS ORDERED: MIDAZOLAM HCL/PF 5 MG/5 ML VIAL. IV ONE (12:00)
[2017-01-20] MEDS ORDERED: fentaNYL PF VIAL 250 MCG/5 ML VIAL IV ONE (12:00)
[2017-01-20] MEDS ORDERED: IOHEXOL 300 MG/ML 100ML VIAL. IART ONE (12:00)
[2017-01-20] MEDS ORDERED: IODIXANOL 320 MG/ML 100 ML VIAL. IART ONE (12:00)
[2017-01-20] MEDS ORDERED: CONTRAST GIVEN MC PRN (12:15)
[2017-01-20 12:47] VITALS: BP 99/57
--- NOTE | 2017-01-20 12:52 | PDOC ---
Exam Digester Cook Digester Cook Jack Barrel Line Operator Barrel Line Operator F Ndumbu Pre-Procedure Diagnosis Pre-Procedure Diagnosis 66 YO male with multiple CV risk factors, with O2 dependent COPD, with ESRD on HD, with PAD, and with nonhealing right 5th toe diabetic/ischemic wound with exposed bone. Post-Procedure Diagnosis Post-Procedure Diagnosis Same. See radiology report. No AAA or significant TONI or EIA stenosis bilaterally. No significant femoral-pop stenosis bilaterally. Right: Occluded AT. Mod stenoses within TPT and origin PT. 2 vessel r/o , via PT>>> peroneal. Left: Occluded AT. Mod recurrent stenosis within previously angioplastied distal TPT. 2 vessel distal r/o, via PT>>> peroneal. Procedure Performed Procedure Performed Abdominal aortogram with bilateral lower extremity angio---no intervention. Type of Anesthesia Type of Anesthesia Local + mod sedation Estimated Blood Loss EBL: 50 cc Condition of Patient Condition of Patient Hemodynamically stable. No apparent complication. Disposition Disposition From IR return to [facility] for recovery, or direct to HD. F/u with Dr Calzada and Vascular Surgery. Full report to follow. DIANDRA WATTERS MD Jan 20, 2017 12:51
[2017-01-20] MEDS: VANCOMYCIN PER PHARMACY MC PRN (13:12)
[2017-01-20 15:00] VITALS: BP 107/54
[2017-01-20] MEDS ORDERED: IV NORMAL SALINE 1000ML BAG 1,000 ML IV PRN (16:46)
[2017-01-20] MEDS ORDERED: DIALYSIS PATIENT. MC PRN ×2 (17:00)
[2017-01-20] MEDS: oxyCODONE/APAP 10/325 1 TAB TABLET PO PRN ×2 (17:47→20:48)
[2017-01-20 19:00] VITALS: BP 106/56
[2017-01-20] MEDS: FAMOTIDINE 20 MG TABLET. PO SCH (20:48)
[2017-01-20] MEDS: TAMSULOSIN 0.4 MG CAP.ER.24H. PO SCH (20:48)
[2017-01-20 23:00] VITALS: BP 111/63
[2017-01-21] MEDS: oxyCODONE/APAP 10/325 1 TAB TABLET PO PRN (01:34)
[2017-01-21 07:00] VITALS: BP 101/52
[2017-01-21] MEDS: ALBUTEROL SULFATE 2.5 MG/3 ML NEBU. NEB SCH ×4 (07:24→20:02)
--- NOTE | 2017-01-21 08:39 | PDOC ---
Provider Note Provider Note still lots of bilat pain, arterio noted, surg opinion pending- will increase oxycodone and tyler re severe pain SANDEEP YANG MD Jan 21, 2017 08:38
[2017-01-21] MEDS: NYSTATIN 100,000 UNITS/ML 5 ML ORAL.SUSP. SWSW SCH ×4 (08:42→20:28)
[2017-01-21] MEDS: FOLIC/VIT B COMP W-C (RENAL) TABLET. PO SCH (08:42)
[2017-01-21] MEDS: RANOLAZINE 500 MG TAB.ER.12H PO SCH (08:42)
[2017-01-21] MEDS: FLUCONAZOLE 100 MG TABLET. PO SCH (08:43)
[2017-01-21] MEDS: ASPIRIN CHEWABLE 81 MG TABLET. PO SCH (08:43)
[2017-01-21] MEDS: CALCIUM ACETATE 667 MG CAPSULE PO SCH ×3 (08:43→16:50)
[2017-01-21] MEDS: MEROPENEM 500 MG in IV NORMAL SALINE 50ML 50 ML IV SCH (08:44)
[2017-01-21] MEDS: PARoxetine 20 MG TABLET PO SCH (08:44)
[2017-01-21] MEDS: ALLOPURINOL 100 MG TABLET. PO SCH (08:44)
--- NOTE | 2017-01-21 10:01 | PDOC ---
Infectious Disease Note Subjective Subjective Has some mild pain still Occ loose stoool ROS ROS GEN: Denies fevers, chills, sweats HEENT: Denies blurred vision, sore throat CV: Denies chest pain RESP: Denies shortness of air, cough GI: Denies n/v/d NEURO: Denies confusion, dizziness MSK: Denies weakness, joint pain/swelling Vital Sign Vital Signs Vital Signs Date Time Temp Pulse Resp B/P (MAP) Pulse Ox O2 Delivery O2 Flow Rate FiO2 01/21/17 08:42 65 101/52 01/21/17 07:25 100 Nasal Cannula 2.0 01/21/17 07:00 97.7 16 97.7 Physical Exam PHYSICAL EXAM GENERAL: NAD, Alert HEENT: PERRL, OC/OP- dry NECK: Supple, no JVD, no LN LUNGS: Clear HEART: S1S2, no gallop, no murmur ABD: Soft, NT, no organomegaly, no rebound EXT: No edema, no cyanosis. Hyperemic. + Yeast - wounds dressed HOT ROLL INSPECTOR: Alert, oriented x 3, no focal neurologic deficit SKIN: No rash IV: ok. Fistula Objective Assessment Right foot wound - osteomyelitis/yeast Thrush PAD - s/p aortogram 01/20 CKD - on HD H/o C-diff Plan Plan of Care Cont Meroepem/Vanc/Fluconazole/Nystatin Await further vascular/IR f/u F/u labs ZACHARY MOSQUERA MD Jan 21, 2017 10:01
[2017-01-21 10:59] VITALS: BP 106/58
--- NOTE | 2017-01-21 11:58 | PDOC ---
Renal-Progress Notes Subjective Notes Notes NOTHING NEW History of Present Illness Hx of present illness STABLE Vitals Vitals Vital Signs Date Time Temp Pulse Resp B/P (MAP) Pulse Ox O2 Delivery O2 Flow Rate FiO2 01/21/17 11:15 99 Nasal Cannula 2.0 01/21/17 10:59 97.5 71 16 106/58 (74) 97.5 Weight Weight [ ] I.O. Intake and Output Intake and Output 01/21/17 07:00 Intake Total 0 ml Balance 0 ml Intake Oral 0 ml Review of Systems Constitutional: yes: alert, oriented Ears/Nose/Throat: Yes: no symptom reported Cardiovascular: Yes no symptom reported Gastrointestional: Yes: no symptom reported Musculoskeletal: Yes: no symptom reported Skin: Yes no symptom reported Physical Exam General Appearance: no apparent distress Respiratory: bilateral CTA Heart: S1S2 Abdomen: soft, bowel sounds present Extremities: pulses present Musculoskeletal: Muscle atrophy, Weakness Assessment Assessment IMP ESRD ANEMIA CAD PAD PLAN HD TOMORROW VASCULAR SURGERY EVALUATION NAVIN ACEVEDO MD Jan 21, 2017 11:58
[2017-01-21] MEDS: VANCOMYCIN PER PHARMACY MC PRN (13:28)
[2017-01-21] MEDS: LACTOBACILLUS ACIDOPH & BULGAR 1 TABLET. PO SCH ×2 (13:45→16:50)
[2017-01-21] MEDS: GABAPENTIN 100 MG CAPSULE. PO SCH ×2 (13:45→20:28)
[2017-01-21 14:44] VITALS: BP 112/55
[2017-01-21 19:00] VITALS: BP 93/50
[2017-01-21] MEDS: TAMSULOSIN 0.4 MG CAP.ER.24H. PO SCH (20:29)
[2017-01-21 20:42] VITALS: BP 96/58
[2017-01-21] MEDS: fentaNYL PF VIAL 100 MCG/2 ML VIAL IV PRN (20:44)
[2017-01-21] MEDS ORDERED: PROCHLORPERAZINE 5 MG TABLET. PO PRN (22:00)
[2017-01-21 23:00] VITALS: BP 92/60
[2017-01-22 03:00] VITALS: BP 100/61
[2017-01-22] MEDS ORDERED: VANCOMYCIN RANDOM LEVEL. MC ONE (05:00)
[2017-01-22] MEDS: oxyCODONE IR 5 MG TABLET PO PRN ×2 (06:16→19:44)
[2017-01-22 06:20] LABS: CALCIUM 8.3 mg/dL (8.5-10.1); CREATININE 3.9 mg/dL (0.7-1.3); GFR 15.5; POTASSIUM 4.1 mmol/L (3.5-5.1)
[2017-01-22 07:00] VITALS: BP 108/51
[2017-01-22] MEDS: ALBUTEROL SULFATE 2.5 MG/3 ML NEBU. NEB SCH ×4 (07:20→21:14)
--- NOTE | 2017-01-22 07:56 | RAD ---
Abdominal aortogram with bilateral lower extremity arteriogram Indication: 65-year-old diabetic male with end stage renal disease on hemodialysis, with bilateral PAD, and with right fifth toe diabetic/ischemic ulceration with exposed bone. Diagnostic arteriogram, with possible intervention, has been requested by vascular surgery. Fluoroscopy time: 16.7 minutes Kerma-area Product: 173 Gycm2 Contrast material: 70 cc Omnipaque 300. 90 cc Visipaque 320. Anesthesia: 62 minutes moderate sedation was provided utilizing a total of 0.5 mg Versed and 25 mcg fentanyl, IV. The patient was appropriately monitored by a qualified independent observer throughout the time of moderate sedation. Consent: The procedure was explained in its entirety to the patient and/or the patient's designated territory service representative by a member of the treatment team. This included a discussion of risks and benefits and commonly accepted alternatives to the procedure, as well as expected consequences of no treatment at all. Discussion of risks included, but was not limited to, those that are most frequent and those that are rare, but possibly severe or life-threatening, as well as the possibility of unforeseen complications. Sterility: All elements of maximal sterile barrier technique, hand hygiene, skin preparation, and, if ultrasound was used, sterile ultrasound technique were followed. Comparison study: [facility] arteriogram from 11/20/2016. Procedure: Informed consent was obtained from the patient. He was placed supine on the angiography table. Preliminary ultrasound examination of left groin revealed wide patency of left common femoral artery, which was documented with a single hard copy ultrasound image. Left groin was then prepped and draped in the usual sterile fashion, utilizing all elements of maximal sterile barrier technique, as described above. Moderate sedation was provided with IV Versed and fentanyl. Using aseptic technique, local anesthesia, direct sterile ultrasound guidance, and the micropuncture system, a 5 Sudanese left common femoral artery sheath was successfully introduced. Abdominal aortogram: A 5 Sudanese Omni Flush catheter was advanced through the left groin sheath and was positioned within suprarenal abdominal aorta. Omnipaque 300 was injected and abdominal aortogram DSA images were obtained. Findings: Infrarenal abdominal aorta is calcific, without stricture and without aneurysmal dilatation. Right kidney is surgically absent. Left renal artery is small and poorly opacified, consistent with end stage renal disease. Celiac trunk, SMA, and SOSA are patent. Aortic bifurcation is widely patent. Oblique pelvis injections: The Omni Flush catheter was withdrawn into terminal abdominal aorta, just above bifurcation. Omnipaque 300 was injected and DSA images were obtained over pelvis in SLOVENIAN and SHERMAN projections. Findings: The high-grade origin SOSA stenosis seen on the SHERMAN projection on the previous study is not included on today's examination. Common iliac arteries are calcific, without significant stenosis. External iliac arteries are widely patent, bilaterally. Both hypogastric arteries are widely patent, as well. Selective right lower extremity arteriogram: The Omni Flush catheter was exchanged over a Glidewire for a 4 Sudanese angled glide catheter, which was advanced across aortic bifurcation and was initially positioned within contralateral right common femoral artery. Visipaque was injected and DSA images were obtained over groin and proximal thigh. The angled glide catheter was then exchanged for a quick cross catheter, which was advanced into proximal right SFA. Dilute Visipaque was injected and DSA images were obtained over mid and distal thigh. The quick cross catheter was then further advanced into mid right popliteal artery. Dilute Visipaque was again injected and DSA images were obtained over right knee and tibial trifurcation in multiple projections. Additional dilute Visipaque was injected and DSA images were obtained from proximal calf through ankle/foot. Findings: Right common femoral artery bifurcation is best seen on the SHERMAN pelvis injection. There is minimal calcific plaquing within right common femoral artery and mild stenosis at origin of profunda. Right SFA-popliteal segment is diffusely calcific, without flow-limiting stenosis. Right anterior tibial artery is occluded just distal to its origin. Tibioperoneal trunk shows mild eccentric stenosis. There is moderate, approximately 50% stenosis at origin of right posterior tibial artery, which is otherwise large in caliber and widely patent through medial and lateral plantar branches and plantar arch. Right peroneal artery is widely patent from origin through distal calf. Delayed images over right foot revealed segmental, discontinuous reconstitution of distal anterior tibial artery and dorsalis pedis artery. Left lower extremity runoff: The Omni Flush catheter was reintroduced through the left groin sheath and was positioned within distal segment of ipsilateral left external iliac artery. Visipaque was injected and DSA images were obtained from groin through foot. Findings: Left common femoral artery and small caliber provided are widely patent. Left SFA is calcific, but is widely patent. Calcific popliteal artery shows mild to moderate proximal segment narrowing, without significant stenosis. Proximal occlusion of left anterior tibial artery is again seen. There has been moderate restenosis at the previously angioplastied critical distal tibioperoneal trunk stenosis. Large caliber left posterior tibial artery remains widely patent through plantar arteries, apart from an unchanged, moderate stenosis just above ankle. Smaller caliber peroneal artery remains patent from origin through distal calf. Delayed images revealed reconstitution of a very tiny distal left anterior tibial artery, with absent visualization of dorsalis pedis artery. Patient tolerated the procedures well without apparent complication. Hemostasis was achieved at the left groin puncture site utilizing the Mynx closure system. Impression: 1. Surgical absence of right kidney. 2. No abdominal aortic aneurysm or significant iliac inflow stenosis, bilaterally. Severe SOSA origin stenosis demonstrated on the previous SHERMAN pelvis injection was not included on today's study. 3. No hemodynamically significant stenosis within calcific femoral-popliteal artery segments, bilaterally. 4. Right anterior tibial artery is occluded proximally. Moderate focal stenoses lie within proximal right tibioperoneal trunk and at origin of right posterior tibial artery. Right posterior tibial artery is otherwise large in caliber and widely patent through medial and lateral plantar arteries and plantar arch. Smaller caliber right peroneal artery is widely patent from origin through distal calf. There is delayed, segmental, discontinuous reconstitution of distal right anterior tibial artery and dorsalis pedis artery. 5. Proximal left anterior tibial artery occlusion is again seen. Since 11/20/2016 there has been moderate recurrent stenosis of at least 50% within the angioplastied critical distal left tibioperoneal trunk lesion. Large caliber left posterior tibial artery remains widely patent from origin through plantar vessels, a part from focal moderate unchanged stenosis just above ankle. Smaller caliber peroneal artery is patent from origin through distal calf. Delayed images revealed reconstitution of tiny distal left anterior tibial artery, without visualization of dorsalis pedis artery.
[2017-01-22] MEDS: LACTOBACILLUS ACIDOPH & BULGAR 1 TABLET. PO SCH ×3 (08:00→18:01)
[2017-01-22] MEDS: CALCIUM ACETATE 667 MG CAPSULE PO SCH ×3 (08:00→18:01)
--- NOTE | 2017-01-22 08:16 | PDOC ---
Provider Note Provider Note vss. no temp- labs same, vasc surg input re arteriograms pending good pain control SANDEEP YANG MD Jan 22, 2017 08:16
[2017-01-22] MEDS: NYSTATIN 100,000 UNITS/ML 5 ML ORAL.SUSP. SWSW SCH ×4 (09:00→20:23)
[2017-01-22] MEDS: MEROPENEM 500 MG in IV NORMAL SALINE 50ML 50 ML IV SCH (09:00)
[2017-01-22] MEDS: FLUCONAZOLE 100 MG TABLET. PO SCH (09:00)
[2017-01-22] MEDS: FOLIC/VIT B COMP W-C (RENAL) TABLET. PO SCH (09:00)
[2017-01-22] MEDS: ASPIRIN CHEWABLE 81 MG TABLET. PO SCH (09:00)
[2017-01-22] MEDS: GABAPENTIN 100 MG CAPSULE. PO SCH ×2 (09:00→20:23)
[2017-01-22] MEDS: PARoxetine 20 MG TABLET PO SCH (09:00)
[2017-01-22] MEDS: RANOLAZINE 500 MG TAB.ER.12H PO SCH (09:00)
[2017-01-22] MEDS: ALLOPURINOL 100 MG TABLET. PO SCH (09:00)
--- NOTE | 2017-01-22 10:21 | PDOC ---
Infectious Disease Note Subjective Subjective Has some mild pain still Occ loose stoool ROS ROS GEN: Denies fevers, chills, sweats HEENT: Denies blurred vision, sore throat CV: Denies chest pain RESP: Denies shortness of air, cough GI: Denies n/v/d NEURO: Denies confusion, dizziness MSK: Denies weakness, joint pain/swelling Vital Sign Vital Signs Vital Signs Date Time Temp Pulse Resp B/P (MAP) Pulse Ox O2 Delivery O2 Flow Rate FiO2 01/22/17 07:25 20 92 Room Air 01/22/17 07:20 2.0 01/22/17 07:00 98.2 68 108/51 (70) 98.2 Physical Exam PHYSICAL EXAM GENERAL: NAD, Alert, in chair HEENT: PERRL, OC/OP- dry NECK: Supple, no JVD, no LN LUNGS: Clear HEART: S1S2, no gallop, no murmur ABD: Soft, NT, no organomegaly, no rebound EXT: No edema, no cyanosis. Hyperemic. + Yeast - wounds dressed PRACTICE ASSISTANT: Alert, oriented x 3, no focal neurologic deficit SKIN: No rash IV: ok. Fistula Labs Lab Laboratory Tests Test 01/22/17 04:55 Sodium Level 137 mmol/L (136-145) Potassium Level 4.1 mmol/L (3.5-5.1) Chloride Level 98 mmol/L (98-107) Carbon Dioxide Level 28 mmol/L (21-32) Anion Gap 11 (6-14) Blood Urea Nitrogen 23 mg/dL (8-26) Creatinine 3.9 mg/dL (0.7-1.3) Estimated GFR (Cockcroft-Gault) 15.5 Glucose Level 141 mg/dL (70-99) Calcium Level 8.3 mg/dL (8.5-10.1) Random Vancomycin Level 21.4 mcg/mL Objective Assessment Right foot wound - osteomyelitis/yeast Thrush PAD - s/p aortogram 01/20 CKD - on HD H/o C-diff Plan Plan of Care Cont Meroepem/Vanc/Fluconazole/Nystatin Await further vascular/IR f/u F/u labs ZACHARY MOSQUERA MD Jan 22, 2017 10:21
[2017-01-22 11:00] VITALS: BP 100/58
[2017-01-22] MEDS ORDERED: DIALYSIS PATIENT. MC PRN (12:00)
--- NOTE | 2017-01-22 12:09 | PDOC ---
Renal-Progress Notes Subjective Notes Notes NONE History of Present Illness Hx of present illness NO CHANGE Vitals Vitals Vital Signs Date Time Temp Pulse Resp B/P (MAP) Pulse Ox O2 Delivery O2 Flow Rate FiO2 01/22/17 11:00 97.6 64 22 100/58 (72) 98 Room Air 97.6 01/22/17 10:55 2.0 Weight Weight [ ] I.O. Intake and Output Intake and Output 01/22/17 07:00 Intake Total 1920 ml Output Total 250 ml Balance 1670 ml Intake Oral 1920 ml Urine/Stool Mix 250 ml # Voids 2 # Bowel Movements 1 Labs Labs Laboratory Tests Test 01/22/17 04:55 Sodium Level 137 mmol/L (136-145) Potassium Level 4.1 mmol/L (3.5-5.1) Chloride Level 98 mmol/L (98-107) Carbon Dioxide Level 28 mmol/L (21-32) Anion Gap 11 (6-14) Blood Urea Nitrogen 23 mg/dL (8-26) Creatinine 3.9 mg/dL (0.7-1.3) Estimated GFR (Cockcroft-Gault) 15.5 Glucose Level 141 mg/dL (70-99) Calcium Level 8.3 mg/dL (8.5-10.1) Random Vancomycin Level 21.4 mcg/mL Review of Systems Constitutional: yes: alert, oriented Ears/Nose/Throat: Yes: no symptom reported Cardiovascular: Yes no symptom reported Gastrointestional: Yes: no symptom reported Musculoskeletal: Yes: no symptom reported Skin: Yes no symptom reported Physical Exam General Appearance: no apparent distress Respiratory: bilateral CTA Heart: S1S2 Abdomen: soft, bowel sounds present Extremities: pulses present Musculoskeletal: Muscle atrophy, Weakness Assessment Assessment IMP ESRD ANEMIA CAD PAD PLAN HD TODAY UF TO NAVIN BARNARD MD Jan 22, 2017 12:09
[2017-01-22] MEDS ORDERED: LIDOCAINE 1% PF 2 ML VIAL. ONE ×2 (12:26→12:30)
[2017-01-22] MEDS: VANCOMYCIN PER PHARMACY MC PRN (12:59)
--- NOTE | 2017-01-22 14:09 | PDOC ---
Provider Note Provider Note Vascular Surgery: Patient was seen in dialysis. The foot pain was controlled. AF VSS right lateral foot ulcer over 5th metatarsal head - +exudate, exposed bone, hyperemia of the foot left foot: left lateral ankle ulcer with exudate, no drainage. Left foot later foot ulcer over 5th MT head - clean, +granulation tissue, no erythema A/P: 66 y/o w/ b/l chronic wounds s/p Angiogram 01/20 Angiogram reviewed and patent bilateral common femoral, SFA, popliteal, with 2 vessel runoff via the PT and the peroneal (reconstitutes the DP). No intervention, and since good 1 vessel in-line flow to the foot no recommendation for bypass Continue dialysis Abx per ID Plan for debridement of the right lateral foot ulcer as well the left foot wounds, possible placement of wound VAC on the right foot CLARITZA KERR MD Jan 22, 2017 14:09
[2017-01-22] MEDS: fentaNYL PF VIAL 100 MCG/2 ML VIAL IV PRN (14:24)
[2017-01-22] MEDS: VANCOMYCIN 500 MG in IV NORMAL SALINE 100ML 100 ML IV SCH (18:02)
[2017-01-22 19:59] VITALS: BP 104/53
[2017-01-22] MEDS: FAMOTIDINE 20 MG TABLET. PO SCH (20:23)
[2017-01-22] MEDS: TAMSULOSIN 0.4 MG CAP.ER.24H. PO SCH (20:23)
[2017-01-22 23:37] VITALS: BP 96/53
[2017-01-23 03:43] VITALS: BP 94/50
[2017-01-23 07:00] VITALS: BP 104/52
[2017-01-23] MEDS: ALBUTEROL SULFATE 2.5 MG/3 ML NEBU. NEB SCH ×3 (07:38→20:28)
[2017-01-23] MEDS: LACTOBACILLUS ACIDOPH & BULGAR 1 TABLET. PO SCH ×3 (08:18→17:00)
[2017-01-23] MEDS: ASPIRIN CHEWABLE 81 MG TABLET. PO SCH (08:18)
[2017-01-23] MEDS: ALLOPURINOL 100 MG TABLET. PO SCH (08:18)
[2017-01-23] MEDS: FLUCONAZOLE 100 MG TABLET. PO SCH (08:18)
[2017-01-23] MEDS: GABAPENTIN 100 MG CAPSULE. PO SCH ×2 (08:18→19:28)
[2017-01-23] MEDS: CALCIUM ACETATE 667 MG CAPSULE PO SCH ×3 (08:18→17:00)
[2017-01-23] MEDS: PARoxetine 20 MG TABLET PO SCH (08:19)
[2017-01-23] MEDS: FOLIC/VIT B COMP W-C (RENAL) TABLET. PO SCH (08:19)
[2017-01-23] MEDS: NYSTATIN 100,000 UNITS/ML 5 ML ORAL.SUSP. SWSW SCH ×4 (08:20→19:30)
[2017-01-23] MEDS: MEROPENEM 500 MG in IV NORMAL SALINE 50ML 50 ML IV SCH (08:31)
[2017-01-23] MEDS: RANOLAZINE 500 MG TAB.ER.12H PO SCH (09:00)
--- NOTE | 2017-01-23 10:46 | PDOC ---
Renal-Progress Notes Subjective Notes Notes NO NEW COMPLAINTS History of Present Illness Hx of present illness NO CHANGE Vitals Vitals Vital Signs Date Time Temp Pulse Resp B/P (MAP) Pulse Ox O2 Delivery O2 Flow Rate FiO2 01/23/17 07:50 Nasal Cannula 3.0 01/23/17 07:41 96 01/23/17 07:00 98.0 67 17 104/52 (69) 98.0 Weight Weight [ ] I.O. Intake and Output Intake and Output 01/23/17 07:00 Intake Total 730 ml Output Total 0 ml Balance 730 ml Intake Oral 730 ml Output Urine Total 0 ml # Bowel Movements 1 Review of Systems Constitutional: yes: alert, oriented Ears/Nose/Throat: Yes: no symptom reported Cardiovascular: Yes no symptom reported Gastrointestional: Yes: no symptom reported Musculoskeletal: Yes: no symptom reported Skin: Yes no symptom reported Physical Exam General Appearance: no apparent distress Respiratory: bilateral CTA Heart: S1S2 Abdomen: soft, bowel sounds present Extremities: pulses present Musculoskeletal: Muscle atrophy, Weakness Assessment Assessment IMP ESRD ANEMIA CAD PAD PLAN HD WEDNESDAY WOUND CARE NO LE BYPASS PLANNED WILL FOLLOW NAVIN ACEVEDO MD Jan 23, 2017 10:46
[2017-01-23 11:00] VITALS: BP 89/50
--- NOTE | 2017-01-23 13:40 | PDOC ---
OBJECTIVE Vital Signs Vital Signs Date Time Temp Pulse Resp B/P (MAP) Pulse Ox O2 Delivery O2 Flow Rate FiO2 01/23/17 13:10 96 Nasal Cannula 2.0 01/23/17 11:00 97.9 64 17 89/50 (63) 100 Nasal Cannula 3.0 97.9 01/23/17 09:00 64 89/50 01/23/17 07:50 Nasal Cannula 3.0 01/23/17 07:41 96 Nasal Cannula 2.0 01/23/17 07:00 98.0 67 17 104/52 (69) 100 Nasal Cannula 3.0 98.0 01/23/17 03:43 97.5 68 16 94/50 (65) 91 Nasal Cannula 3.0 97.5 01/22/17 23:37 98.3 74 16 96/53 (67) 91 Nasal Cannula 3.0 98.3 01/22/17 20:00 Nasal Cannula 3.0 01/22/17 19:59 98.2 69 20 104/53 (70) 97 Nasal Cannula 3.0 98.2 01/22/17 19:44 20 Nasal Cannula 3.0 01/22/17 15:17 Nasal Cannula 2.0 01/22/17 14:24 20 92 Room Air I & O Intake and Output 01/23/17 07:00 Intake Total 730 ml Output Total 0 ml Balance 730 ml Intake Oral 730 ml Output Urine Total 0 ml # Bowel Movements 1 ASSESSMENT/PLAN Assessment/Plan 1-PAD with ulcers LE, refuse further debridement , desire home with hospice , arranging 2- ESRD on dialysis 3-ANEMIA 4-CAD 5-PAD Problems: RYLEE JEROME MD Jan 23, 2017 13:40
[2017-01-23 15:00] VITALS: BP 90/44
--- NOTE | 2017-01-23 15:04 | PDOC ---
Infectious Disease Note Subjective Subjective Periods of confusion No fever ROS ROS Limited Vital Sign Vital Signs Vital Signs Date Time Temp Pulse Resp B/P (MAP) Pulse Ox O2 Delivery O2 Flow Rate FiO2 01/23/17 13:10 96 Nasal Cannula 2.0 01/23/17 11:00 97.9 64 17 89/50 (63) 97.9 Physical Exam PHYSICAL EXAM GENERAL: Resting quietly HEENT: Oral cavity pink, dry LUNGS: Clear HEART: S1S2, no gallop, no murmur appreciated ABD: Soft, NT, BS active EXT: No edema, no cyanosis; bilt foot dressings dry. ASSEMBLER TRACTOR: Arouses to gentle stimuli, derease attention span, follows simple commands SKIN: No rash IV: ok Objective Assessment Right foot wound - osteomyelitis/yeast. Thrush PAD - s/p aortogram 01/20 CKD - on HD H/o C-diff Plan Plan of Care vanc, meropenem, fluconazole and Nystatin No vascular intervention or debridement planned. Arrangements for home with hospice underway Attending Co-Sign The patient was seen and interviewed as well as examined at the bedside. The chart was reviewed. The case was discussed. Agree with the plan of care. BHUMI MACIAS APRN Jan 23, 2017 15:04 ERIKA PIEDRA MD Jan 23, 2017 15:28
[2017-01-23] MEDS: VANCOMYCIN PER PHARMACY MC PRN (15:22)
[2017-01-23 19:00] VITALS: BP 90/48
[2017-01-23] MEDS: oxyCODONE IR 5 MG TABLET PO PRN (19:31)
[2017-01-23] MEDS: TAMSULOSIN 0.4 MG CAP.ER.24H. PO SCH (19:35)
[2017-01-23 22:41] VITALS: BP 94/53
[2017-01-24] MEDS: ALBUTEROL SULFATE 2.5 MG/3 ML NEBU. NEB SCH ×4 (05:57→19:46)
[2017-01-24 07:00] VITALS: BP 84/52
[2017-01-24] MEDS: CALCIUM ACETATE 667 MG CAPSULE PO SCH ×3 (08:16→16:54)
[2017-01-24] MEDS: ASPIRIN CHEWABLE 81 MG TABLET. PO SCH (08:16)
[2017-01-24] MEDS: LACTOBACILLUS ACIDOPH & BULGAR 1 TABLET. PO SCH ×3 (08:16→16:54)
[2017-01-24] MEDS: FOLIC/VIT B COMP W-C (RENAL) TABLET. PO SCH (08:17)
[2017-01-24] MEDS: PARoxetine 20 MG TABLET PO SCH (08:17)
[2017-01-24] MEDS: ALLOPURINOL 100 MG TABLET. PO SCH (08:17)
[2017-01-24] MEDS: FLUCONAZOLE 100 MG TABLET. PO SCH (08:17)
[2017-01-24] MEDS: NYSTATIN 100,000 UNITS/ML 5 ML ORAL.SUSP. SWSW SCH ×4 (08:17→20:48)
[2017-01-24] MEDS: GABAPENTIN 100 MG CAPSULE. PO SCH ×2 (08:17→20:48)
[2017-01-24] MEDS: RANOLAZINE 500 MG TAB.ER.12H PO SCH (09:00)
[2017-01-24] MEDS: MEROPENEM 500 MG in IV NORMAL SALINE 50ML 50 ML IV SCH (09:12)
[2017-01-24 11:00] VITALS: BP 92/54
--- NOTE | 2017-01-24 11:50 | PDOC ---
Renal-Progress Notes Subjective Notes Notes NO NEW COMPLAINTS History of Present Illness Hx of present illness STABLE Vitals Vitals Vital Signs Date Time Temp Pulse Resp B/P (MAP) Pulse Ox O2 Delivery O2 Flow Rate FiO2 01/24/17 11:33 98 Nasal Cannula 2.0 01/24/17 09:00 77 84/52 01/24/17 07:00 97.2 18 97.2 Weight Weight [ ] I.O. Intake and Output Intake and Output 01/24/17 07:00 Intake Total 600 ml Balance 600 ml Intake Oral 600 ml # Voids 2 # Bowel Movements 2 Review of Systems Constitutional: yes: alert, oriented Ears/Nose/Throat: Yes: no symptom reported Cardiovascular: Yes no symptom reported Gastrointestional: Yes: no symptom reported Musculoskeletal: Yes: no symptom reported Skin: Yes no symptom reported Physical Exam General Appearance: no apparent distress Respiratory: bilateral CTA Heart: S1S2 Abdomen: soft, bowel sounds present Extremities: pulses present Musculoskeletal: Muscle atrophy, Weakness Assessment Assessment IMP ESRD ANEMIA CAD AND CM PAD PLAN HD TOMORROW WOUND CARE NO LE BYPASS PLANNED WILL FOLLOW NAVIN ACEVEDO MD Jan 24, 2017 11:50
--- NOTE | 2017-01-24 13:04 | PDOC ---
SUBJECTIVE Subjective no new complaints OBJECTIVE Vital Signs Vital Signs Date Time Temp Pulse Resp B/P (MAP) Pulse Ox O2 Delivery O2 Flow Rate FiO2 01/24/17 11:33 98 Nasal Cannula 2.0 01/24/17 09:00 77 84/52 01/24/17 07:50 Nasal Cannula 3.0 01/24/17 07:00 97.2 77 18 84/52 (63) 98 Room Air 97.2 01/24/17 05:56 Nasal Cannula 2.0 01/23/17 22:41 97.9 63 16 94/53 (67) 92 Nasal Cannula 3.0 97.9 01/23/17 20:46 17 Room Air 01/23/17 20:10 95 Nasal Cannula 2.0 01/23/17 20:00 Nasal Cannula 3.0 01/23/17 19:31 18 Room Air 01/23/17 19:00 97.7 82 18 90/48 (62) 94 Nasal Cannula 3.0 97.7 01/23/17 15:00 97.5 60 17 90/44 (59) 100 Nasal Cannula 3.0 97.5 01/23/17 13:10 96 Nasal Cannula 2.0 I & O Intake and Output 01/24/17 07:00 Intake Total 600 ml Balance 600 ml Intake Oral 600 ml # Voids 2 # Bowel Movements 2 PHYSICAL EXAM Physical Exam no change ASSESSMENT/PLAN Assessment/Plan 1-PAD with ulcers LE, refuse further debridement , desire home with hospice , arranging 2- ESRD on dialysis 3-ANEMIA 4-CAD 5-PAD Dr Calzada will resume care in AM , pt does not desire any debridment , wants home with hospice Problems: RYLEE JEROME MD Jan 24, 2017 13:04
[2017-01-24] MEDS: VANCOMYCIN PER PHARMACY MC PRN (14:34)
[2017-01-24 15:00] VITALS: BP 88/56
[2017-01-24 19:00] VITALS: BP 84/49
[2017-01-24] MEDS: FAMOTIDINE 20 MG TABLET. PO SCH (20:48)
[2017-01-24] MEDS: TAMSULOSIN 0.4 MG CAP.ER.24H. PO SCH (20:48)
[2017-01-24 23:00] VITALS: BP 89/46
[2017-01-25 05:02] LABS: HEMATOCRIT 38.5 % (39.0-53.0); HEMOGLOBIN 12.2 g/dL (13.0-17.5); RED BLOOD COUNT 3.92 x10^6/uL (4.30-5.70); RED CELL DISTRIBUTION WIDTH 17.5 % (11.5-14.5); WHITE BLOOD COUNT 9.3 x10^3/uL (4.0-11.0)
[2017-01-25 05:36] LABS: CALCIUM 9.1 mg/dL (8.5-10.1); CREATININE 4.8 mg/dL (0.7-1.3); GFR 12.2; POTASSIUM 4.4 mmol/L (3.5-5.1)
[2017-01-25] MEDS ORDERED: LIDOCAINE 1% 1 ML SYRINGE. ID PRN ×2 (06:00→09:45)
[2017-01-25] MEDS ORDERED: IV RINGERS,LACTATED 1000ML 1,000 ML IV SCH (06:00)
[2017-01-25 07:00] VITALS: BP 89/54
[2017-01-25] MEDS: ALBUTEROL SULFATE 2.5 MG/3 ML NEBU. NEB SCH ×4 (07:42→19:49)
[2017-01-25] MEDS: LACTOBACILLUS ACIDOPH & BULGAR 1 TABLET. PO SCH ×3 (08:00→16:43)
[2017-01-25] MEDS: CALCIUM ACETATE 667 MG CAPSULE PO SCH ×3 (08:00→16:44)
--- NOTE | 2017-01-25 08:22 | PDOC ---
Provider Note Provider Note sleeping- vss- afeb- awaiting home hospice plans- SANDEEP YANG MD Jan 25, 2017 08:22
[2017-01-25] MEDS ORDERED: IV NORMAL SALINE 1000ML BAG 1,000 ML IV PRN (08:43)
[2017-01-25] MEDS ORDERED: DIALYSIS PATIENT. MC PRN (08:45)
[2017-01-25] MEDS ORDERED: diphenhydrAMINE 50 MG/ML VIAL IV PRN ×3 (08:45→09:45)
[2017-01-25] MEDS: IV RINGERS,LACTATED 1000ML 1,000 ML IV SCH ×2 (09:44→17:44)
[2017-01-25] MEDS ORDERED: PROCHLORPERAZINE 10 MG/2 ML VIAL. IV PRN (09:45)
[2017-01-25] MEDS ORDERED: HYDROmorphone 2 MG/ML VIAL IV PRN (09:45)
[2017-01-25] MEDS ORDERED: MORPHINE SULFATE 4 MG/ML DISP.SYRIN. IV PRN (09:45)
[2017-01-25] MEDS ORDERED: MIDAZOLAM HCL/PF 2 MG/2 ML VIAL. IV PRN ×2 (09:45)
[2017-01-25] MEDS ORDERED: LIDOCAINE 1% PF 2 ML VIAL. ID STA (09:45)
[2017-01-25] MEDS ORDERED: MEPERIDINE PF 25 MG/ML VIAL. IV PRN (09:45)
[2017-01-25] MEDS ORDERED: fentaNYL PF VIAL 100 MCG/2 ML VIAL IV PRN ×3 (09:45)
--- NOTE | 2017-01-25 10:16 | PDOC ---
Dialysis Progress Note Dialysis Note Dialysis Note Seen on Hemodialysis, tolerating treatment Okay Vitals on Hemodialysis: 104/53 66 afeb General Appearance: Awake: Alert Oriented x 1-2 Neck: No JVD or JVP Chest: CTA Enmanuel Heart: S1 S2 Abdomen - Soft NTND Extremities - No EdemaESRD ARF: Dialysis as below F 180 NR 3.0 Hrs (last HD Rx) 3 K 2.5 Ca 140 Na 30 HC03 Qb 350 + Qd 500+ Heparin 0 Units Uf 2 Kgs or to dry weight as tolerated May give 25-50 gms of 25% Albumin if needed to maintain Hemodynamic stability Treatment plan reviewed and discussed with transition of care specialist Vitals Vital Signs Vital Signs Date Time Temp Pulse Resp B/P (MAP) Pulse Ox O2 Delivery O2 Flow Rate FiO2 01/25/17 07:47 99 Nasal Cannula 2.0 01/25/17 07:00 97.4 87 18 89/54 (66) 97.4 Labs Last Labs Laboratory Tests Test 01/25/17 04:30 White Blood Count 9.3 x10^3/uL (4.0-11.0) Red Blood Count 3.92 x10^6/uL (4.30-5.70) Hemoglobin 12.2 g/dL (13.0-17.5) Hematocrit 38.5 % (39.0-53.0) Mean Corpuscular Volume 98 fL (79-100) Mean Corpuscular Hemoglobin 31 pg (25-35) Mean Corpuscular Hemoglobin Concent 32 g/dL (31-37) Red Cell Distribution Width 17.5 % (11.5-14.5) Platelet Count 138 x10^3/uL (140-400) Sodium Level 136 mmol/L (136-145) Potassium Level 4.4 mmol/L (3.5-5.1) Chloride Level 97 mmol/L (98-107) Carbon Dioxide Level 31 mmol/L (21-32) Anion Gap 8 (6-14) Blood Urea Nitrogen 31 mg/dL (8-26) Creatinine 4.8 mg/dL (0.7-1.3) Estimated GFR (Cockcroft-Gault) 12.2 Glucose Level 133 mg/dL (70-99) Calcium Level 9.1 mg/dL (8.5-10.1) Laboratory Tests Test 01/25/17 04:30 White Blood Count 9.3 x10^3/uL (4.0-11.0) Red Blood Count 3.92 x10^6/uL (4.30-5.70) Hemoglobin 12.2 g/dL (13.0-17.5) Hematocrit 38.5 % (39.0-53.0) Mean Corpuscular Volume 98 fL (79-100) Mean Corpuscular Hemoglobin 31 pg (25-35) Mean Corpuscular Hemoglobin Concent 32 g/dL (31-37) Red Cell Distribution Width 17.5 % (11.5-14.5) Platelet Count 138 x10^3/uL (140-400) Sodium Level 136 mmol/L (136-145) Potassium Level 4.4 mmol/L (3.5-5.1) Chloride Level 97 mmol/L (98-107) Carbon Dioxide Level 31 mmol/L (21-32) Anion Gap 8 (6-14) Blood Urea Nitrogen 31 mg/dL (8-26) Creatinine 4.8 mg/dL (0.7-1.3) Estimated GFR (Cockcroft-Gault) 12.2 Glucose Level 133 mg/dL (70-99) Calcium Level 9.1 mg/dL (8.5-10.1) RIVKA PIEDRA MD Jan 25, 2017 10:16
--- NOTE | 2017-01-25 10:48 | PDOC ---
Infectious Disease Note Subjective Subjective pt feeling good, says he is going home on hospice ROS ROS GEN: Denies fevers, chills, sweats HEENT: Denies blurred vision, sore throat CV: Denies chest pain RESP: Denies shortness of air, cough GI: Denies n/v/d NEURO: Denies confusion, dizziness MSK: Denies weakness, joint pain/swelling Vital Sign Vital Signs Vital Signs Date Time Temp Pulse Resp B/P (MAP) Pulse Ox O2 Delivery O2 Flow Rate FiO2 01/25/17 07:47 99 Nasal Cannula 2.0 01/25/17 07:00 97.4 87 18 89/54 (66) 97.4 Physical Exam PHYSICAL EXAM GENERAL: NAD, Alert HEENT: PERRL, OC/OP NECK: Supple, no JVD, no LN LUNGS: Clear HEART: S1S2, no gallop, no murmur ABD: Soft, NT, no organomegaly, no rebound EXT: No edema, no cyanosis,, dressing not opened per pt request 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, oriented x 3, no focal neurologic deficit SKIN: No rash IV: ok Labs Lab Laboratory Tests Test 01/25/17 04:30 White Blood Count 9.3 x10^3/uL (4.0-11.0) Red Blood Count 3.92 x10^6/uL (4.30-5.70) Hemoglobin 12.2 g/dL (13.0-17.5) Hematocrit 38.5 % (39.0-53.0) Mean Corpuscular Volume 98 fL (79-100) Mean Corpuscular Hemoglobin 31 pg (25-35) Mean Corpuscular Hemoglobin Concent 32 g/dL (31-37) Red Cell Distribution Width 17.5 % (11.5-14.5) Platelet Count 138 x10^3/uL (140-400) Sodium Level 136 mmol/L (136-145) Potassium Level 4.4 mmol/L (3.5-5.1) Chloride Level 97 mmol/L (98-107) Carbon Dioxide Level 31 mmol/L (21-32) Anion Gap 8 (6-14) Blood Urea Nitrogen 31 mg/dL (8-26) Creatinine 4.8 mg/dL (0.7-1.3) Estimated GFR (Cockcroft-Gault) 12.2 Glucose Level 133 mg/dL (70-99) Calcium Level 9.1 mg/dL (8.5-10.1) Objective Assessment Right foot wound - osteomyelitis/yeast. Thrush PAD - s/p aortogram 01/20 CKD - on HD H/o C-diff Plan Plan of Care vanc, meropenem, fluconazole and Nystatin,, can be stopped, once hospice No vascular intervention or debridement planned. Arrangements for home with hospice underway ERIKA PIEDRA MD Jan 25, 2017 10:48
[2017-01-25] MEDS: NYSTATIN 100,000 UNITS/ML 5 ML ORAL.SUSP. SWSW SCH ×4 (13:00→21:18)
[2017-01-25] MEDS: PARoxetine 20 MG TABLET PO SCH (14:20)
[2017-01-25] MEDS: GABAPENTIN 100 MG CAPSULE. PO SCH ×2 (14:21→21:18)
[2017-01-25] MEDS: RANOLAZINE 500 MG TAB.ER.12H PO SCH (14:21)
[2017-01-25] MEDS: MEROPENEM 500 MG in IV NORMAL SALINE 50ML 50 ML IV SCH (14:22)
[2017-01-25] MEDS: ALLOPURINOL 100 MG TABLET. PO SCH (14:22)
[2017-01-25] MEDS: FLUCONAZOLE 100 MG TABLET. PO SCH (14:22)
[2017-01-25] MEDS: FOLIC/VIT B COMP W-C (RENAL) TABLET. PO SCH (14:22)
[2017-01-25] MEDS: ASPIRIN CHEWABLE 81 MG TABLET. PO SCH (14:22)
[2017-01-25 14:44] VITALS: BP 108/44
[2017-01-25] MEDS: IV NORMAL SALINE 1000ML BAG 1,000 ML IV SCH (15:18)
[2017-01-25] MEDS: VANCOMYCIN 500 MG in IV NORMAL SALINE 100ML 100 ML IV SCH (16:00)
[2017-01-25] MEDS: fentaNYL PF VIAL 100 MCG/2 ML VIAL IV PRN ×2 (16:44→21:23)
[2017-01-25 19:00] VITALS: BP 107/52
[2017-01-25] MEDS: TAMSULOSIN 0.4 MG CAP.ER.24H. PO SCH (21:18)
[2017-01-25 23:00] VITALS: BP 91/52
[2017-01-26 03:00] VITALS: BP 90/49
[2017-01-26] MEDS: IV NORMAL SALINE 1000ML BAG 1,000 ML IV SCH (04:13)
[2017-01-26 07:00] VITALS: BP 93/48
[2017-01-26] MEDS: ALBUTEROL SULFATE 2.5 MG/3 ML NEBU. NEB SCH ×2 (07:14→11:01)
--- NOTE | 2017-01-26 08:00 | DISCH ---
DISCHARGE CONDITION ON DISCHARGE: Stable HOSPICE: Yes HOSPICE EVAL & TREAT: Yes POST DISCHARGE ORDERS ACTIVITY ORDERS: Activity as tolerated WEIGHT BEARING STATUS: As tolerated BATHING ORDERS: No Tub Bath until see WOUND/INCISION CARE: Other, see below CHECKS AFTER DISCHARGE CHECKS AFTER DISCHARGE: Check blood sugar, ac/hs FOLLOW-UP PHYSICIAN FOLLOW-UP: prn TREATMENT/EQUIPMENT ORDERS ADAPTIVE EQUIPMENT NEEDED: None SANDEEP YANG MD Jan 26, 2017 08:00
--- NOTE | 2017-01-26 08:04 | PDOC ---
Provider Note Provider Note [id number] SANDEEP YANG MD Jan 26, 2017 08:04
--- NOTE | 2017-01-26 08:14 | PDOC ---
Provider Note Provider Note vss, no new sxs, plans to go home today w/ hospice, he has decided to dc dialysis as well- d/w , no questions SANDEEP YANG MD Jan 26, 2017 08:14
[2017-01-26] MEDS: MEROPENEM 500 MG in IV NORMAL SALINE 50ML 50 ML IV SCH (08:44)
[2017-01-26] MEDS: NYSTATIN 100,000 UNITS/ML 5 ML ORAL.SUSP. SWSW SCH (08:47)
[2017-01-26] MEDS: fentaNYL PF VIAL 100 MCG/2 ML VIAL IV PRN ×2 (08:47→11:14)
[2017-01-26] MEDS: RANOLAZINE 500 MG TAB.ER.12H PO SCH (08:47)
[2017-01-26] MEDS: CALCIUM ACETATE 667 MG CAPSULE PO SCH (08:47)
[2017-01-26] MEDS: ALLOPURINOL 100 MG TABLET. PO SCH (08:48)
[2017-01-26] MEDS: ASPIRIN CHEWABLE 81 MG TABLET. PO SCH (08:48)
[2017-01-26] MEDS: FLUCONAZOLE 100 MG TABLET. PO SCH (08:48)
[2017-01-26] MEDS: FOLIC/VIT B COMP W-C (RENAL) TABLET. PO SCH (08:48)
[2017-01-26] MEDS: LACTOBACILLUS ACIDOPH & BULGAR 1 TABLET. PO SCH (08:49)
[2017-01-26] MEDS: GABAPENTIN 100 MG CAPSULE. PO SCH (08:49)
[2017-01-26] MEDS: PARoxetine 20 MG TABLET PO SCH (08:49)
[2017-01-26 11:00] VITALS: BP 76/46
[2017-01-26 14:46] VITALS: BP 80/49
--- NOTE | 2017-01-26 18:11 | DS ---
DATE OF DISCHARGE: 01/26/2017 HOSPITAL SUMMARY: A 66-year-old white male with end-stage renal disease and progressive PVD with wounds in both lower extremities particularly on the right foot which was increasing in pain. Outpatient cultures had shown Enterobacter not amenable to oral therapy. Chemistry profile showed a creatinine of consistent with end-stage renal disease. Albumin was low at 2.5 and vancomycin levels were normal. X-ray of the foot showed no osteomyelitis changes present. Bilateral lower extremity arteriogram with abdominal aortogram showed no large vessel disease or aneurysms or any hemodynamically significant stenoses within the femoropopliteal segments bilaterally. Small vessel disease was seen throughout both lower extremities. He was treated with IV vancomycin and Merrem for the pain from the infections primarily in the right foot. Vascular saw him and arteriograms were completed, but it was felt there was no good surgical option. The patient is a DNR and has decided to go home with hospice and comfort care and has been taking oxycodone in the hospital with pretty good pain control and using his IV antibiotics prior to discharge. He was discharged home today with hospice and has decided to remain with dialysis for now, but may change his mind in the future. FINAL DIAGNOSES: 1. Severe bilateral lower extremity peripheral arterial disease. 2. Arterial ischemic ulcers from bilateral feet. 3. End-stage renal disease. OPERATIONS AND PROCEDURES: Abdominal aortogram with bilateral femoral runoff. COMPLICATIONS: None. CONSULTATIONS: Dr. Jeffrey Trivedi; Dr. Kuo; Dr. Ruff. DISPOSITION: Home on oxycodone as needed for pain. No oral antibiotics. Home meds remain the same. He will continue dialysis for now. Prognosis is terminal. SANDEEP YANG MD DR: NIKOLAI/macho JOB#: [id number] / [id number]
== END 2017-01-26 15:57 | disposition hospice, home (50) | DRG 299 ==
LOC: 5 SOUTH 13:44 → UNDODISIN 17:30
PROVIDERS: ADMIT Family Medicine; ATTEND Family Medicine
PROC: B41D1ZZ Fluoroscopy of Aorta and Bilateral Lower Extremity Arteries using Low Osmolar Contrast (ICD-10-PCS; 2017-01-20)
PROC: 5A1D00Z (ICD-10-PCS; principal; 2017-01-25)
DX: E11.51 Type 2 diabetes mellitus with diabetic peripheral angiopathy without gangrene (principal); N18.6 End stage renal disease; R64 Cachexia; I13.2 Hypertensive heart and chronic kidney disease with heart failure and with stage 5 chronic kidney disease, or end stage renal disease; E11.621 Type 2 diabetes mellitus with foot ulcer; L97.519 Non-pressure chronic ulcer of other part of right foot with unspecified severity; L97.529 Non-pressure chronic ulcer of other part of left foot with unspecified severity; Z66 Do not resuscitate; E87.6 Hypokalemia; E11.22 Type 2 diabetes mellitus with diabetic chronic kidney disease; D64.9 Anemia, unspecified; B37.9 Candidiasis, unspecified; I25.10 Atherosclerotic heart disease of native coronary artery without angina pectoris; I25.5 Ischemic cardiomyopathy; E21.3 Hyperparathyroidism, unspecified; G89.29 Other chronic pain; I27.2 Other secondary pulmonary hypertension; I48.91 Unspecified atrial fibrillation; I50.9 Heart failure, unspecified; Z80.0 Family history of malignant neoplasm of digestive organs; Z85.038 Personal history of other malignant neoplasm of large intestine; Z86.19 Personal history of other infectious and parasitic diseases; Z87.891 Personal history of nicotine dependence; Z95.0 Presence of cardiac pacemaker; Z95.1 Presence of aortocoronary bypass graft; Z95.5 Presence of coronary angioplasty implant and graft; Z68.27 Body mass index [BMI] 27.0-27.9, adult; Z99.2 Dependence on renal dialysis; Z80.1 Family history of malignant neoplasm of trachea, bronchus and lung; Z51.5 Encounter for palliative care
CPT/HCPCS: 36246; 36415; 73630; 75625; 75716; 75774; 76937; 80048; 80053; 80202; 82962; 85027; 85610; 87071; 87075; 87205; 93925; 94250; 94640; 94760; C1713; C1760; C1769; C1892; G0269; J2185; J2250; J2543; J3010; J3370; J7030; J7040; J7050; Q9967

== ENCOUNTER → 2017-01-18 | Outpatient (CLI) | payer MEDICARE, OTHER ==
[2017-01-01 09:00] VITALS: BP 114/56
[~2017-01-18] MED LIST changes: +ASPI-630 PO; -ASPI81TA2 PO; -HYDR-2666 PO; +HYDR-2758 PO; +NITR0.4T22 SL; -NITR0.4T6 SL; -OXYC-244 PO; +OXYC-327 PO; +OXYC-328 PO; -PARO20TA55 PO; +PARO20TA99 PO
== END | disposition home or self-care (01) ==
LOC: PMGWOUND 10:18
PROVIDERS: ATTEND Emergency Medicine Undersea and Hyperbaric Medicine
DX: E11.621 Type 2 diabetes mellitus with foot ulcer (principal); L97.523 Non-pressure chronic ulcer of other part of left foot with necrosis of muscle; L97.513 Non-pressure chronic ulcer of other part of right foot with necrosis of muscle; I87.312 Chronic venous hypertension (idiopathic) with ulcer of left lower extremity; L97.221 Non-pressure chronic ulcer of left calf limited to breakdown of skin; E11.22 Type 2 diabetes mellitus with diabetic chronic kidney disease; I12.0 Hypertensive chronic kidney disease with stage 5 chronic kidney disease or end stage renal disease; N18.6 End stage renal disease; Z85.038 Personal history of other malignant neoplasm of large intestine; Z95.1 Presence of aortocoronary bypass graft; Z87.891 Personal history of nicotine dependence
CPT/HCPCS: 87205; 97597